=== PATIENT | female | born 1945 | race Caucasian/White ===

== ENCOUNTER 2016-05-15 10:07 | Outpatient (CLI) | payer MEDICARE, MEDICAID | END 2016-05-15 10:08 | disposition home or self-care (01) | DX: D64.9 Anemia, unspecified (principal) ==

== ENCOUNTER 2016-05-25 08:00 | Outpatient (CLI) | payer MEDICARE, MEDICAID | END 2016-05-25 08:01 | disposition home or self-care (01) | DX: N39.0 Urinary tract infection, site not specified (principal) ==

== ENCOUNTER 2016-05-31 08:00 | Outpatient (CLI) | payer MEDICARE, MEDICAID | END 2016-05-31 08:01 | disposition home or self-care (01) | DX: N39.0 Urinary tract infection, site not specified (principal); R41.82 Altered mental status, unspecified ==

== ENCOUNTER 2016-09-29 08:00 | Outpatient (CLI) | payer MEDICARE, MEDICAID ==
[2016-09-29 14:46] LABS: CALCIUM 9.3 mg/dL (8.5-10.3); CREATININE 1.3 mg/dL (0.4-1.0)
== END 2016-09-29 08:01 | disposition home or self-care (01) ==
LOC: LAB.R 08:00
DX: I10 Essential (primary) hypertension (principal); I25.9 Chronic ischemic heart disease, unspecified
CPT/HCPCS: 80048

== ENCOUNTER 2016-11-22 08:00 | Outpatient (CLI) | payer MEDICARE, MEDICAID ==
[2016-11-22 14:42] LABS: HEMOGLOBIN A1C 0.6 g/dL
== END 2016-11-22 08:01 | disposition home or self-care (01) ==
LOC: LAB.R 08:00
PROVIDERS: ATTEND Internal Medicine
DX: E11.9 Type 2 diabetes mellitus without complications (principal)
CPT/HCPCS: 83036

== ENCOUNTER 2017-02-13 08:00 | Outpatient (CLI) | payer MEDICARE, MEDICAID ==
[2017-02-13 21:30] LABS: WBC,URINE >25 /HPF (0-5)
[2017-02-13 22:13] LABS: UR CULTURE IF IND INDICATED
--- NOTE | 2017-02-14 06:00 | HISTORY & PHYSICAL EXAMINATION ---
DATE OF ADMISSION: 02/13/2017 She was admitted on 02/14/2017 at 3 a.m. CODE STATUS: FULL CODE. PRIMARY CARE PROVIDER: Dr. Joseluis Luong EXAM LIMITATIONS: The patient was unresponsive. SOURCE OF INFORMATION: Medical records. CHIEF COMPLAINT: Confusion and unresponsiveness. ADVANCED DIRECTIVES: Does the patient have advanced directive, Yes. HISTORY OF PRESENT ILLNESS: The patient, a 71-year-old white female, was very lethargic and unresponsive in the emergency room. She came from [facility] with a temperature of 101 degrees Fahrenheit, unresponsive and with a purulent discharge from the suprapubic catheter. DRUG ALLERGIES: 1. CEFTRIAXONE. 2. ERYTHROMYCIN. 3. LISINOPRIL. 4. PENICILLIN. 5. SULFA DRUGS. 6. QUINIDINE. MEDICATIONS: 1. Amitriptyline 150 mg 1 tab p.o. every day. 2. Aspirin 81 mg 1 tab p.o. every day. 3. Celexa 40 mg 1 tab p.o. every day. 4. Dextran 70/hypromellose 30 mL drop each eye twice a day. 5. Diltiazem 240 mg 1 tab p.o. twice a day. 6. Colace 250 mg 1 tab p.o. twice a day p.r.n. 7. Estradiol 1 mg p.o. every day. 8. Gabapentin 800 mg 1 tab p.o. 4 times a day. 9. Guaifenesin 600 mg p.o. twice a day. 10. Hydromorphone AP 5/325 mg 2 tabs p.o. q.6h. 11. Lantus 15 units subcutaneously in a.m. 12. Loperamide 2 mg 1 tab p.o. every day. 13. Mirtazapine 15 mg p.o. every day. 14. Multivitamin 1 tab p.o. every day. 15. Omeprazole 20 mg 1 tab p.o. every day. 16. Perphenazine 16 mg 1 tab p.o. every day. 17. Potassium chloride 10 mEq 1 tab p.o. twice a day. 18. Simvastatin 40 mEq 1 tab p.o. every day. PAST MEDICAL HISTORY: Recurrent urinary tract infection, chronic indwelling suprapubic catheter, type 2 diabetes mellitus, hypertension, insomnia, chronic back pain, hyperlipidemia, major depression, GERD and generalized anxiety. PAST SURGICAL HISTORY: Left [id number]-yhd-[id number] amputation SOCIAL HISTORY: She lives at [facility]. She never smoked. She does not drink alcohol and she uses no recreational drugs. REVIEW OF SYSTEMS: Unable to obtain because the patient was unresponsive. PHYSICAL EXAMINATION: VITAL SIGNS: Temperature is 36.8, pulse is 68, respiratory rate is 18, blood pressure is 80/48, O2 saturation is 89%. GENERAL: Unresponsive. HEENT: Head atraumatic, normocephalic. Eyes PERRLA, EOMI. NECK: Supple. No JVD, no bruits, no thyroid enlargement. No adenopathy. HEART: RRR. LUNGS: Clear to auscultation. ABDOMEN: Positive bowel sounds, soft, nontender. No rebound, no guarding. EXTREMITIES: Warm: No edema, +2 pedal pulses in the right leg. Left leg above- the-knee amputation. NEUROLOGICAL: Unresponsive and follows no commands. LABORATORY DATA: Sodium is 129, potassium is 4.4, chloride 92, bicarbonate 22, BUN 73, creatinine 3.7, glucose 141. Glomerular filtration rate 12. Anion gap of 15. White blood cells are 19.9, hemoglobin is 11.5, hematocrit 35.1, and platelets 191,000. On UA, urine protein is greater than 300, occult blood is large, nitrite is positive, leukocyte esterase is positive. RBCs are 6-10 and white blood cells are greater than 25. EKG is a normal sinus rhythm. DIAGNOSES: 1. Septic shock to be treated with IV Cipro, IV vancomycin, IV Levophed and IV 0.9 normal saline. Another lactate is pending. Acute Respiratory Distress will be managed by respiratory therapy to keep O2 saturations greater than 92%. 2. Pyelonephritis- IV Cipro and IV Vancomycin. 3. Depression- Elavil, Celexa and Remeron. 4. Hypertension will be treated with diltiazem, but will be held until the patient is off levaphed, alert, and SBP is >130. 5. Peripheral neuropathy will be treated with gabapentin. 6. She will have sequential compression devices and will be on subcutaneous heparin for deep vein thrombosis prophylaxis. She will receive IV Protonix for the prevention of stress ulcer. 7. Her diabetes will be treated with IV Glargine and IV sliding scale insulin. 8. Hyponatremia- IV .9 NS 9. Acute Renal Injury- IV.9 NS 10. CRD- stage 3 11. Anticipated length of stay is 5 days. 12. Admitted to ICU on telemetry. 13. Oral medications will be held until the patient is alert and responsive. 14. NPO 15. IV Zofran prn for nausea/ vomiting. JOB #: [id number] EXT JOB #:[id number] MTDIsaiah
== END 2017-02-13 08:01 | disposition home or self-care (01) ==
LOC: LAB.R 08:00
DX: N39.0 Urinary tract infection, site not specified (principal)
CPT/HCPCS: 81001; 87077; 87086

== ENCOUNTER 2017-02-14 00:45 | Outpatient (CLI) | payer MEDICARE, MEDICAID | END 2017-02-14 00:46 | disposition critical access hospital (66) | LOC: EMS 00:45 | PROVIDERS: ATTEND Surgery | DX: R41.82 Altered mental status, unspecified (principal); R50.9 Fever, unspecified | CPT/HCPCS: A0425; A0427 ==

== ENCOUNTER 2017-02-14 00:50 | Inpatient (IN) | payer MEDICARE, MEDICAID ==
[2017-02-14] MEDS ORDERED: SODIUM CHLORIDE 0.9% 1,000 ML IV ONE (01:02)
--- NOTE | 2017-02-14 01:06 | ED Physician Documentation ---
History of Present Illness - Stated complaint Stated Complaint: GLF/FEVER/ - Chief complaint Chief Complaint: Fever - History obtained from History obtained from: EMS, Caregiver (transfer notes from [facility] staff) - History of Present Illness Timing: Today - Additonal information Additional information: HPI is from medic report and notes written on transfer forms by [facility] staff; patient unable to contribute to HPI due to AMS. [facility] staff report increasing lethargy for past 24 hours. UO (into suprapubic catheter) has become thick and discolored during the day and she had fever over 101. She was started on Macrobid, has only had one dose thus far. 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: Hysterectomy - Present Medications Home Medications: Ambulatory Orders Medication Instructions Recorded Confirmed Amitriptyline [Elavil] 150 mg PO DAILY 09/29/13 05/20/15 Aspirin Chewable [[place] 81 mg PO DAILY 09/29/13 05/20/15 Aspirin] Citalopram [CeleXA] 40 mg PO QPM 09/29/13 05/20/15 Docusate Sodium 250 mg PO BID 09/29/13 05/20/15 Gabapentin [Neurontin] 800 mg PO QID 09/29/13 05/20/15 Hydrocodone/Acetaminophen 2 tab PO Q6HR PRN 09/29/13 05/20/15 [Hydrocodone-APAP 5-325] Insulin Glargine [Lantus] 15 units SUBQ QPM 09/29/13 05/20/15 Omeprazole [PriLOSEC] 20 mg PO DAILY 09/29/13 05/20/15 Simvastatin [Zocor] 40 mg PO DAILY 09/29/13 05/20/15 diltiaZEM CD [Cardizem Cd] 240 mg PO BID 09/29/13 05/20/15 Loperamide [Imodium] 2 mg PO DAILY 06/06/14 05/20/15 Multivitamin [Multivitamins] 1 each PO DAILY 06/06/14 05/20/15 Potassium Chloride 10 meq PO BID 06/06/14 05/20/15 Dextran 70/Hypromellose 1 drop EACHEYE BID 05/20/15 05/20/15 [Artificial Tears Eye Drops] Estradiol 1 mg PO DAILY 05/20/15 05/20/15 Lorazepam 0.5 mg PO BID 05/20/15 05/20/15 Mirtazapine 15 mg PO DAILY 05/20/15 05/20/15 Perphenazine 16 mg PO BID 05/20/15 05/20/15 guaiFENesin [Mucinex] 600 mg PO BID 05/20/15 05/20/15 - Allergies Allergies/Adverse Reactions: Allergies Allergy/AdvReac Type Severity Reaction Status Date / Time erythromycin base Allergy Severe Anaphylaxis Verified 02/14/17 01:05 [Erythromycin Base] Penicillins Allergy Severe Anaphylaxis Verified 02/14/17 01:05 Sulfa (Sulfonamide Allergy Severe Redness/High Verified 02/14/17 01:05 Antibiotics) fever lisinopril Allergy Unknown Unknown Verified 02/14/17 01:05 ceftriaxone Allergy Rash Verified 02/14/17 01:05 quinidine Allergy Rash Verified 02/14/17 01:05 - Social History Does the pt smoke?: No Smoking Status: Never smoker Does the pt drink ETOH?: No Does the pt have substance abuse?: No - Immunizations Immunizations are current?: No Immunizations: TDAP >10years/unknown - POLST Patient has POLST: No PD ED PE NORMAL - Vitals Vital signs reviewed: Yes - General General: No acute distress, Well developed/nourished - HEENT HEENT: PERRL, Other (dry mucous membranes) - Neck Neck: Supple, no meningeal sign - Cardiac Cardiac: RRR, No murmur - Respiratory Respiratory: No respiratory distress, Clear bilaterally - Abdomen Abdomen: Soft, Non tender, Other (suprapubic catheter site: mild erythema, scant thick, green discharge on gauze) - Extremities Extremities: Other (left AKA) PD ED PE EXPANDED - General General: Lethargic (briefly arousable to tactile stimulation but does not answer questions nor follow commands) - Derm Derm: Pale Results - Vitals Vitals: Vital Signs - 24 hr 1002/14/17 02/14/17 00:52 01:11 01:35 Temperature 36.8 C Heart Rate 78 Respiratory 16 Rate Blood Pressure 70/37 L 80/48 L O2 Saturation 98 89 L 02/14/17 02/14/17 02/14/17 01:51 02:27 03:19 Temperature Heart Rate 68 68 65 Respiratory 18 16 Rate Blood Pressure 82/47 L 81/49 L 79/48 L O2 Saturation 96 97 96 Oxygen O2 Source Nasal cannula Oxygen Flow Rate 2 - Labs Labs: Laboratory Tests 02/14/17 02/14/17 02/14/17 01:14 01:18 01:43 WBC 19.9 H RBC 4.23 Hgb 11.5 L Hct 35.1 L MCV 82.8 MCH 27.2 MCHC 32.8 RDW 15.9 H Plt Count 191 MPV 8.2 Neut # Not Reportable Lymph # Not Reportable [place] # Not Reportable Eos # Not Reportable Baso # Not Reportable Absolute Nucleated RBC Not Reportable Total Counted 100 Band Neuts % (Manual) 40 H Reactive Lymphs % (Man) 2 Nucleated RBC % Not Reportable Neutrophils # (Manual) 18.3 H Lymphocytes # (Manual) 0.8 L Monocytes # (Manual) 0.8 Nucleated RBCs 1 Differential Comment MANUAL DIFFERENTIAL Platelet Estimate NORMAL (130-450,000) Platelet Morphology NORMAL APPEARANCE RBC Morph Micro Appear NORMAL APPEARANCE Sodium Potassium Chloride Carbon Dioxide Anion Gap BUN Creatinine Estimated GFR (MDRD) Glucose Glycated Hemoglobin 6.4 H Estim Average Glucose 137 H Lactic Acid Calcium Urine Color DARK YELLOW Urine Clarity TURBID Urine pH 6.5 Ur Specific [place] 1.020 Urine Protein >=300 H Urine Glucose (UA) NEGATIVE Urine Ketones TRACE Urine Occult Blood LARGE H Urine Nitrite POSITIVE H Urine Bilirubin NEGATIVE Urine Urobilinogen 0.2 (NORMAL) Ur Leukocyte Esterase LARGE H Urine RBC 6-10 H Urine WBC >25 H Ur Squamous Epith Cells NONE SEEN Urine Bacteria None Seen Ur Microscopic Review INDICATED Urine Culture Comments INDICATED 02/14/17 02/14/17 01:43 01:43 WBC RBC Hgb Hct MCV MCH MCHC RDW Plt Count MPV Neut # Lymph # [place] # Eos # Baso # Absolute Nucleated RBC Total Counted Band Neuts % (Manual) Reactive Lymphs % (Man) Nucleated RBC % Neutrophils # (Manual) Lymphocytes # (Manual) Monocytes # (Manual) Nucleated RBCs Differential Comment Platelet Estimate Platelet Morphology RBC Morph Micro Appear Sodium 129 L Potassium 4.4 Chloride 92 L Carbon Dioxide 22 Anion Gap 15.0 H BUN 73 H Creatinine 3.7 H Estimated GFR (MDRD) 12 L Glucose 141 H Glycated Hemoglobin Estim Average Glucose Lactic Acid 2.1 Calcium 8.2 L Urine Color Urine Clarity Urine pH Ur Specific [place] Urine Protein Urine Glucose (UA) Urine Ketones Urine Occult Blood Urine Nitrite Urine Bilirubin Urine Urobilinogen Ur Leukocyte Esterase Urine RBC Urine WBC Ur Squamous Epith Cells Urine Bacteria Ur Microscopic Review Urine Culture Comments - Rads (name of study) chest xray Radiology: Prelim report reviewed, See rad report PD MEDICAL DECISION MAKING - ED course Complexity details: reviewed old records (similar presentation/admission May 2015), reviewed results, re-evaluated patient, considered differential ED course: Patient had hypotension for most of ED stay despite 1.5 liters of IV fluid, and thus hospitalist asked that I insert a central line. I attempted right IJ access but was unsuccessful. I consulted anesthesia delivery and installation subcontractor (nurse voucher clerk Aakash), who came to ED and was able to place right IJ prior to patient's transfer to the ICU. Departure - Departure Disposition: [address] [facility] DC/Xfer Clinical Impression: Sepsis Condition: Serious Discharge Date/Time: 02/14/17 06:55
[2017-02-14] MEDS ORDERED: CIPROFLOXACIN 400 MG/200 ML 200 ML IV ONE ×2 (01:48→02:00)
[2017-02-14] MEDS ORDERED: VANCOMYCIN INJ 1 GM in SODIUM CHLORIDE 0.9% 250 ML IV STA (01:48)
[2017-02-14 01:53] LABS: PH,URINE 6.5 PH (5.0-7.5)
--- NOTE | 2017-02-14 01:53 | XRAY Report ---
EXAM: CHEST RADIOGRAPHY EXAM DATE: 02/14/2017 01:41 AM. CLINICAL HISTORY: Hypoxia, AMS, hypotension. COMPARISON: 05/20/2015. TECHNIQUE: 1 view. FINDINGS: Lungs/Pleura: Low volumes. No focal opacities evident. No gross pneumothorax or large effusion. Mediastinum: Mild cardiomegaly. Rotated mediastinum. Other: None. IMPRESSION: Hypoventilatory single view chest with cardiomegaly but without definite acute process. [facility] Referring Provider Line: [phone] SITE ID: [id number]
--- NOTE | 2017-02-14 01:53 | XRAY Preliminary Report ---
Exam: XR Chest 1 View IMPRESSION: Hypoventilatory single view chest with cardiomegaly but without definite acute process. [facility] SITE ID: [id number]
[2017-02-14 01:57] LABS: BASOPHILS % (AUTO) 0.2 %; EOSINOPHILS % (AUTO) 0.4 %; HCT - HEMATOCRIT 35.1 % (37.0-47.0); HGB - HEMOGLOBIN 11.5 g/dL (12.0-16.0); LYMPHOCYTES % (AUTO) 4.7 %; MEAN CORPUSCULAR HEMOGLOBIN 27.2 pg (27.0-31.0); MEAN CORPUSCULAR HGB CONC 32.8 g/dL (32.0-36.0); MEAN CORPUSCULAR VOLUME 82.8 fL (81.0-99.0); MEAN PLATELET VOLUME 8.2 fL (7.9-10.8); MONOCYTES % (AUTO) 3.8 %; NEUTROPHILS % (AUTO) 90.9 %; RED BLOOD COUNT 4.23 10^6/uL (4.20-5.40); RED CELL DISTRIBUTION WIDTH 15.9 % (12.0-15.0); UNCORRECTED WHITE BLOOD COUNT 19.9 x10^3/uL; WHITE BLOOD COUNT 19.9 x10^3/uL (4.8-10.8)
[2017-02-14 02:03] LABS: CALCIUM 8.2 mg/dL (8.5-10.3); CREATININE 3.7 mg/dL (0.4-1.0); POTASSIUM 4.4 mmol/L (3.5-5.0)
[2017-02-14] MEDS ORDERED: SODIUM CHLORIDE 0.9% 1,000 ML IV STA (02:16)
[2017-02-14] MEDS ORDERED: VANCOMYCIN 1 GM VIAL ONE (02:18)
[2017-02-14 02:20] LABS: BILIRUBIN,URINE NEGATIVE (NEGATIVE); UA w/ MICROSCOPIC CHARGE YES; UR CULTURE IF IND INDICATED; WBC,URINE >25 /HPF (0-5)
[2017-02-14 02:39] LABS: BAND NEUTROPHILS % (MANUAL) 40 %; LYMPHOCYTES % (MANUAL) 2 %; NEUTROPHILS % (MANUAL) 52 %; NP AUTO DIFFERENTIAL? YES; NP MAN DIFFERENTIAL? NO; PLATELET ESTIMATE, MANUAL NORMAL (130-450,000) (NORMAL); PLATELET MORPHOLOGY NORMAL APPEARANCE (NORMAL); TOTAL CELLS COUNTED 100
[2017-02-14] MEDS ORDERED: ONDANSETRON 4 MG/2 ML VIAL IVP PRN (03:27)
--- NOTE | 2017-02-14 06:00 | HISTORY & PHYSICAL EXAMINATION ---
REVISED: REPORT ORIGINALLY SIGNED ON 02/14/2017 @ 0633. REPORT MOVED TO CORRECT ACCT ON 02/23/2017 jll DATE OF ADMISSION: 02/13/2017 She was admitted on 02/14/2017 at 3 a.m. CODE STATUS: FULL CODE. PRIMARY CARE PROVIDER: Dr. Joseluis Luong EXAM LIMITATIONS: The patient was unresponsive. SOURCE OF INFORMATION: Medical records. CHIEF COMPLAINT: Confusion and unresponsiveness. ADVANCED DIRECTIVES: Does the patient have advanced directive, Yes. HISTORY OF PRESENT ILLNESS: The patient, a 71-year-old white female, was very lethargic and unresponsive in the emergency room. She came from [facility] with a temperature of 101 degrees Fahrenheit, unresponsive, and with a purulent discharge from the suprapubic catheter. DRUG ALLERGIES 1. CEFTRIAXONE. 2. ERYTHROMYCIN. 3. LISINOPRIL. 4. PENICILLIN. 5. SULFA DRUGS. 6. QUINIDINE. MEDICATIONS 1. Amitriptyline 150 mg 1 tab p.o. every day. 2. Aspirin 81 mg 1 tab p.o. every day. 3. Celexa 40 mg 1 tab p.o. every day. 4. Dextran 70/hypromellose 30 mL drop each eye twice a day. 5. Diltiazem 240 mg 1 tab p.o. twice a day. 6. Colace 250 mg 1 tab p.o. twice a day p.r.n. 7. Estradiol 1 mg p.o. every day. 8. Gabapentin 800 mg 1 tab p.o. 4 times a day. 9. Guaifenesin 600 mg p.o. twice a day. 10. Hydromorphone AP 5/325 mg 2 tabs p.o. q.6h. 11. Lantus 15 units subcutaneously in a.m. 12. Loperamide 2 mg 1 tab p.o. every day. 13. Mirtazapine 15 mg p.o. every day. 14. Multivitamin 1 tab p.o. every day. 15. Omeprazole 20 mg 1 tab p.o. every day. 16. Perphenazine 16 mg 1 tab p.o. every day. 17. Potassium chloride 10 mEq 1 tab p.o. twice a day. 18. Simvastatin 40 mEq 1 tab p.o. every day. PAST MEDICAL HISTORY: Recurrent urinary tract infection, chronic indwelling suprapubic catheter, type 2 diabetes mellitus, hypertension, insomnia, chronic back pain, hyperlipidemia, major depression, GERD and generalized anxiety. PAST SURGICAL HISTORY: Left [id number]-[id number] amputation SOCIAL HISTORY: She lives at [facility] senior [facility]. She never smoked. She does not drink alcohol and she uses no recreational drugs. REVIEW OF SYSTEMS: Unable to obtain because the patient was unresponsive. PHYSICAL EXAMINATION VITAL SIGNS: Temperature is 36.8, pulse is 68, respiratory rate is 18, blood pressure is 80/48, O2 saturation is 89%. GENERAL: Unresponsive. HEENT: Head atraumatic, normocephalic. Eyes PERRLA, EOMI. NECK: Supple. No JVD, no bruits, no thyroid enlargement. No adenopathy. HEART: RRR. LUNGS: Clear to auscultation. ABDOMEN: Positive bowel sounds, soft, nontender. No rebound, no guarding. EXTREMITIES: Warm: No edema, +2 pedal pulses in the right leg. Left leg above- the-knee amputation. NEUROLOGICAL: Unresponsive and follows no commands. LABORATORY DATA: Sodium is 129, potassium is 4.4, chloride 92, bicarbonate 22, BUN 73, creatinine 3.7, glucose 141. Glomerular filtration rate 12. Anion gap of 15. White blood cells are 19.9, hemoglobin is 11.5, hematocrit 35.1, and platelets 191,000. On UA, urine protein is greater than 300, occult blood is large, nitrite is positive, leukocyte esterase is positive. RBCs are 6-10 and white blood cells are greater than 25. EKG is a normal sinus rhythm. DIAGNOSES 1. Septic shock to be treated with IV Cipro, IV vancomycin, IV Levophed and IV 0.9 normal saline. Another lactate is pending. Acute Respiratory Distress will be managed by Respiratory Therapy to keep O2 saturations greater than 92%. 2. Pyelonephritis- IV Cipro and IV Vancomycin. 3. Depression- Elavil, Celexa, and Remeron. 4. Hypertension will be treated with diltiazem, but will be held until the patient is off Levophed, alert, and SBP is >130. 5. Peripheral neuropathy will be treated with gabapentin. 6. She will have sequential compression devices and will be on subcutaneous heparin for deep vein thrombosis prophylaxis. She will receive IV Protonix for the prevention of stress ulcer. 7. Her diabetes will be treated with IV Glargine and IV sliding scale insulin. 8. Hyponatremia- IV 0.9 NS 9. Acute Renal Injury- IV 0.9 NS 10. CRD- stage 3 11. Anticipated length of stay is 5 days. 12. Admitted to ICU on telemetry. 13. Oral medications will be held until the patient is alert and responsive. 14. NPO 15. IV Zofran prn for nausea/ vomiting. JOB #: [id number] EXT JOB #:[id number] [facility]AMPUS[facility]
[2017-02-14 06:43] LABS: MEAN PLATELET VOLUME 8.2 fL (7.9-10.8); UNCORRECTED WHITE BLOOD COUNT 17.6 x10^3/uL; WHITE BLOOD COUNT 17.6 x10^3/uL (4.8-10.8)
[2017-02-14 06:47] LABS: BASOPHILS % (AUTO) 0.1 %; EOSINOPHILS % (AUTO) 0.5 %; HCT - HEMATOCRIT 33.2 % (37.0-47.0); HGB - HEMOGLOBIN 10.8 g/dL (12.0-16.0); LYMPHOCYTES % (AUTO) 3.3 %; MEAN CORPUSCULAR HEMOGLOBIN 27.3 pg (27.0-31.0); MEAN CORPUSCULAR HGB CONC 32.6 g/dL (32.0-36.0); MEAN CORPUSCULAR VOLUME 83.8 fL (81.0-99.0); MONOCYTES % (AUTO) 3.2 %; NEUTROPHILS % (AUTO) 92.9 %; RED BLOOD COUNT 3.96 10^6/uL (4.20-5.40)
[2017-02-14] MEDS: SODIUM CHLORIDE 0.9% 1,000 ML IV SCH ×3 (06:50→14:36)
[2017-02-14 06:54] LABS: ALBUMIN/GLOBULIN RATIO 0.8 (1.0-2.2); BILIRUBIN,TOTAL 0.7 mg/dL (0.2-1.0); CALCIUM 7.6 mg/dL (8.5-10.3); CREATININE 3.6 mg/dL (0.4-1.0); POTASSIUM 4.4 mmol/L (3.5-5.0); TOTAL PROTEIN 5.4 g/dL (6.7-8.2)
--- NOTE | 2017-02-14 07:02 | XRAY Preliminary Report ---
Exam: XR Chest for Line Placement IMPRESSION: 1. Right IJ central venous catheter tip projects over the cavoatrial junction. 2. Hypoventilatory appearance of the chest. [facility] SITE ID: [id number]
--- NOTE | 2017-02-14 07:05 | XRAY Report ---
EXAM: CHEST RADIOGRAPHY EXAM DATE: 02/14/2017 06:30 AM. CLINICAL HISTORY: Central line placement COMPARISON: Comparison made with exam acquired earlier today at 0148 hours. TECHNIQUE: 1 view. FINDINGS: Lungs/Pleura: Small lung volumes. Low lung volumes with resultant accentuation of the pulmonary inter stitial and vascular markings. No consolidation, effusion, or definite pneumothorax. Mediastinum: Mild enlargement of the cardiac silhouette Other: There is a right IJ central venous catheter with tip projecting over the cavoatrial junction. Moderate to severe degenerative change about the shoulder bilaterally. IMPRESSION: 1. Right IJ central venous catheter tip projects over the cavoatrial junction. 2. Hypoventilatory appearance of the chest. [facility] Referring Provider Line: [phone] SITE ID: [id number]
[2017-02-14 07:12] LABS: HEMOGLOBIN A1C 0.55 g/dL
[2017-02-14 07:15] LABS: BAND NEUTROPHILS % (MANUAL) 45 %; EOSINOPHILS % (MANUAL) 2 %; LYMPHOCYTES % (MANUAL) 9 %; NEUTROPHILS % (MANUAL) 42 %; NP AUTO DIFFERENTIAL? YES; NP MAN DIFFERENTIAL? NO; PLATELET ESTIMATE, MANUAL NORMAL (130-450,000) (NORMAL); PLATELET MORPHOLOGY NORMAL APPEARANCE (NORMAL); TOTAL CELLS COUNTED 100
[2017-02-14] MEDS ORDERED: VANCOMYCIN INJ 1 GM in SODIUM CHLORIDE 0.9% 250 ML IV ONE (08:00)
[2017-02-14] MEDS ORDERED: MULTIVITAMIN TABLET PO SCH (08:00)
[2017-02-14] MEDS: PANTOPRAZOLE 40 MG VIAL IVP SCH (08:09)
[2017-02-14] MEDS: SODIUM CHLORIDE FLUSH 0.9% 10 ML SYRINGE IVP PRN ×2 (08:10→22:14)
[2017-02-14] MEDS ORDERED: GABAPENTIN 400 MG CAPSULE PO SCH (09:00)
[2017-02-14] MEDS ORDERED: VANCOMYCIN INJ 1 GM in SODIUM CHLORIDE 0.9% 250 ML IV SCH (09:00)
[2017-02-14] MEDS ORDERED: DOCUSATE SODIUM 250 MG CAPSULE PO SCH (09:00)
[2017-02-14] MEDS ORDERED: guaiFENesin 600 MG TABLET PO SCH (09:00)
[2017-02-14] MEDS ORDERED: PERPHENAZINE 4 MG TABLET PO SCH (09:00)
[2017-02-14] MEDS ORDERED: ASPIRIN CHEW 81 MG TABLET PO SCH (09:00)
[2017-02-14] MEDS ORDERED: POTASSIUM CHLORIDE 10 MEQ CAPSULE PO SCH (09:00)
[2017-02-14] MEDS ORDERED: diltiaZEM CD 240 MG CAPSULE PO SCH (09:00)
[2017-02-14] MEDS: HEPARIN 5,000 UNIT/ML VIAL SUBQ SCH ×2 (09:28→21:24)
[2017-02-14] MEDS: CARBOXYMETHYLCELLULOSE OPHTH DROPS EACHEYE SCH ×2 (09:35→21:25)
[2017-02-14] MEDS ORDERED: ALBUTEROL NEB 2.5 MG/3 ML INH PRN (10:07)
[2017-02-14] MEDS ORDERED: CIPROFLOXACIN 400 MG/200 ML 200 ML IV SCH (14:00)
[2017-02-14] MEDS: SODIUM CHLORIDE FLUSH 0.9% 10 ML SYRINGE IVP SCH ×2 (14:31→21:25)
[2017-02-14] MEDS: GABAPENTIN 400 MG CAPSULE PO SCH ×2 (16:54→21:34)
[2017-02-14] MEDS: HYDROmorphone 1 MG/ML AMP IVP PRN ×2 (17:25→22:20)
[2017-02-14] MEDS: LORazepam 2 MG/ML SYRINGE IVP PRN ×2 (17:39→21:34)
[2017-02-14] MEDS ORDERED: ATORVASTATIN 10 MG TABLET PO SCH (21:00)
[2017-02-14] MEDS ORDERED: AMITRIPTYLINE 25 MG TABLET PO SCH (21:00)
[2017-02-14] MEDS ORDERED: CITALOPRAM 10 MG TABLET PO SCH ×2 (21:00)
[2017-02-14] MEDS ORDERED: INSULIN GLARGINE 300 UNIT/3 ML PEN SUBQ SCH (21:00)
[2017-02-14] MEDS: QUEtiapine 100 MG TABLET PO SCH ×2 (21:24→21:34)
[2017-02-14] MEDS: MIRTAZAPINE 15 MG TABLET PO SCH ×2 (21:25→21:34)
[2017-02-14 22:36] LABS: BASOPHILS % (AUTO) 0.2 %; HCT - HEMATOCRIT 34.7 % (37.0-47.0); HGB - HEMOGLOBIN 11.3 g/dL (12.0-16.0); MEAN CORPUSCULAR HEMOGLOBIN 27.3 pg (27.0-31.0); MEAN CORPUSCULAR HGB CONC 32.4 g/dL (32.0-36.0); MEAN CORPUSCULAR VOLUME 84.2 fL (81.0-99.0); MONOCYTES % (AUTO) 2.6 %; NEUTROPHILS % (AUTO) 92.2 %; RED BLOOD COUNT 4.12 10^6/uL (4.20-5.40); RED CELL DISTRIBUTION WIDTH 16.3 % (12.0-15.0); UNCORRECTED WHITE BLOOD COUNT 12.8 x10^3/uL; WHITE BLOOD COUNT 12.8 x10^3/uL (4.8-10.8)
[2017-02-14 23:10] LABS: BAND NEUTROPHILS % (MANUAL) 24 %; LYMPHOCYTES % (MANUAL) 6 %; NEUTROPHILS % (MANUAL) 67 %; TOTAL CELLS COUNTED 100
[2017-02-14 23:11] LABS: NP AUTO DIFFERENTIAL? YES; NP MAN DIFFERENTIAL? NO; PLATELET ESTIMATE, MANUAL NORMAL (130-450,000) (NORMAL); PLATELET MORPHOLOGY NORMAL APPEARANCE (NORMAL)
[2017-02-15] MEDS: SODIUM CHLORIDE 0.9% 1,000 ML IV SCH ×2 (00:12→11:10)
[2017-02-15] MEDS: LORazepam 2 MG/ML SYRINGE IVP PRN ×2 (00:12→16:03)
[2017-02-15] MEDS ORDERED: diphenhydrAMINE INJ 50 MG/ML VIAL IVP ONE (01:05)
[2017-02-15] MEDS: CIPROFLOXACIN 400 MG/200 ML 200 ML IV SCH (01:31)
[2017-02-15 04:32] LABS: BASOPHILS % (AUTO) 0.1 %; EOSINOPHILS # (AUTO) 0.2 10^3/uL (0.0-0.7); EOSINOPHILS % (AUTO) 2.2 %; HGB - HEMOGLOBIN 10.8 g/dL (12.0-16.0); LYMPHOCYTES # (AUTO) 0.3 10^3/uL (1.5-3.5); LYMPHOCYTES % (AUTO) 2.7 %; MEAN CORPUSCULAR HEMOGLOBIN 27.3 pg (27.0-31.0); MEAN CORPUSCULAR HGB CONC 32.6 g/dL (32.0-36.0); MEAN CORPUSCULAR VOLUME 83.7 fL (81.0-99.0); MEAN PLATELET VOLUME 8.1 fL (7.9-10.8); MONOCYTES # (AUTO) 0.4 10^3/uL (0.0-1.0); MONOCYTES % (AUTO) 3.4 %; NEUTROPHILS # (AUTO) 9.3 10^3/uL (1.5-6.6); NEUTROPHILS % (AUTO) 91.6 %; RED BLOOD COUNT 3.94 10^6/uL (4.20-5.40); RED CELL DISTRIBUTION WIDTH 16.2 % (12.0-15.0); UNCORRECTED WHITE BLOOD COUNT 10.2 x10^3/uL; WHITE BLOOD COUNT 10.2 x10^3/uL (4.8-10.8)
[2017-02-15 04:42] LABS: CALCIUM, IONIZED 1.07 mmol/L (1.15-1.33); VBG PH 7.303 (7.31-7.41)
[2017-02-15 04:43] LABS: ALBUMIN/GLOBULIN RATIO 0.7 (1.0-2.2); BILIRUBIN,TOTAL 0.4 mg/dL (0.2-1.0); CALCIUM 7.7 mg/dL (8.5-10.3); CREATININE 2.7 mg/dL (0.4-1.0); PHOSPHORUS 4.7 mg/dL (2.5-4.6); POTASSIUM 3.9 mmol/L (3.5-5.0); TOTAL PROTEIN 5.7 g/dL (6.7-8.2)
[2017-02-15] MEDS: SODIUM CHLORIDE FLUSH 0.9% 10 ML SYRINGE IVP SCH ×3 (06:01→21:25)
[2017-02-15] MEDS: PANTOPRAZOLE 40 MG VIAL IVP SCH (06:01)
[2017-02-15] MEDS: DULoxetine 30 MG CAPSULE PO SCH (09:03)
[2017-02-15] MEDS: GABAPENTIN 400 MG CAPSULE PO SCH ×2 (09:04→21:24)
[2017-02-15] MEDS: HEPARIN 5,000 UNIT/ML VIAL SUBQ SCH ×2 (09:05→21:25)
[2017-02-15 10:07] LABS: INR 1.1 (0.8-1.2); PT - PROTHROMBIN TIME 12.8 secs (9.9-12.6)
--- NOTE | 2017-02-15 12:18 | PROVIDER PROGRESS NOTE ---
Assessment/Plan - Problem List (1) Septic shock Assessment/Plan: BP improved an Pt off Levophed. No cultures back yet. Continue hydration with iv saline and continue iv antibiotics. (2) Pyelonephritis Assessment/Plan: Pt has a chronic indwelling urinary catheter and NH staff saw purullence around skin site. Cultures not back yet. Continue iv antibiotics. (3) Acute hyperactive delirium due to multiple etiologies Assessment/Plan: Intermittent confusion possibly due to hypotension, dementia or her schizophrenia history. Continue soft restraints until able to take her psych meds po to help with hyperactivity. (4) Acute on chronic renal failure Assessment/Plan: Improving BUN/ctreat with iv saline hydration. Cpntinue saline. Follow electrolytes, BUN and creat. (5) T2DM (type 2 diabetes mellitus) Assessment/Plan: Pt not on her usual Insulin dose. Will use SS Insulin low coverage. - Current Meds Current Meds: Current Medications Generic Name Dose Route Start Last Admin Trade Name Freq PRN Reason Stop Dose Admin Carboxymethylcellulose 1 drops 02/14/17 09:00 02/14/17 21:25 Refresh 1% Ophth Drops EACHEYE 1 applic BID JEAN Administration Duloxetine HCl 60 mg 02/15/17 09:00 02/15/17 09:03 Cymbalta PO Not Given DAILY JEAN Gabapentin 800 mg 02/14/17 16:35 02/15/17 09:04 Neurontin PO Not Given BID JEAN Heparin Sodium (Porcine) 5,000 unit 02/14/17 09:00 02/15/17 09:05 SUBQ 5,000 unit BID JEAN Administration Hydromorphone HCl 1 mg 02/14/17 16:35 02/14/17 22:20 Dilaudid IVP 1 mg Q2HR PRN Administration PAIN Sodium Chloride 1,000 mls @ 100 mls/hr 02/14/17 04:00 02/15/17 11:10 Normal Saline 0.9% IV 100 mls/hr .Q10H JEAN Administration Norepinephrine Bitartrate 8 mg 250 mls @ 15 mls/hr 02/14/17 03:44 02/15/17 03 :28 / Dextrose IV Not Given .[id number] JEAN Protocol 8 MCG/MIN Ciprofloxacin 200 mls @ 200 mls/hr 02/15/17 02:00 02/15/17 02:30 Cipro 400 Mg/200 Ml IV Infused Q24H JEAN Infusion Lorazepam 0.5 mg 02/14/17 17:28 02/15/17 00:12 Ativan Inj IVP 0.5 mg Q2HR PRN Administration Anxiety Mirtazapine 15 mg 02/14/17 21:00 02/14/17 21:34 Remeron PO Not Given QPM JEAN Pantoprazole Sodium 40 mg 02/14/17 07:00 02/15/17 06:01 Protonix IVP 40 mg QDAC JEAN Administration Quetiapine Fumarate 300 mg 02/14/17 21:00 02/14/17 21:34 Seroquel PO Not Given QPM JEAN Sodium Chloride 10 ml 02/14/17 06:00 02/15/17 06:01 Normal Saline Flush 0.9% IVP 10 ml Q8HR JEAN Administration Sodium Chloride 10 ml 02/14/17 03:27 02/14/17 22:14 Normal Saline Flush 0.9% IVP 20 ml PRN PRN Administration NEEDED PER PROVIDER ORDERS - Lab Result Fish Bone Diagrams: 02/15/17 04:15 02/15/17 04:15 - Additional Planning My Orders: My Active Orders 02/14/17 16:35 Gabapentin [Neurontin] 800 mg PO BID HYDROmorphone [Dilaudid] 1 mg IVP Q2HR PRN 02/14/17 17:28 LORazepam INJ [Ativan Inj] 0.5 mg IVP Q2HR PRN 02/14/17 21:00 Citalopram [CeleXA] 20 mg PO QPM QUEtiapine [SEROquel] 300 mg PO QPM 02/15/17 09:00 DULoxetine [Cymbalta] 60 mg PO DAILY Subjective - Subjective Patient Reports: Resting Comfortably Nursing Reports: Confused, Other (Last evening and overnight, Pt was confused and combative when awake and tried to pull out ivs, needed order for restraints. This am she is still confused but less combative., oriented x 0.) Objective Vital Signs: Vital Signs - 24 hr 02/14/17 02/14/17 02/14/17 13:00 14:00 15:00 Temperature Heart Rate [ 86 88 94 Apical] Respiratory 14 16 14 Rate Blood Pressure 111/58 L 117/56 L 102/59 L [Right Brachial artery] O2 Saturation 95 96 97 02/14/17 02/14/17 02/14/17 16:00 17:30 17:34 Temperature Heart Rate [ 100 99 104 H Apical] Respiratory 18 14 17 Rate Blood Pressure 152/110 H 126/107 H 126/107 H [Right Brachial artery] O2 Saturation 94 02/14/17 02/14/17 02/14/17 19:00 20:00 21:03 Temperature 37.2 C Heart Rate [ 97 97 95 Apical] Respiratory 12 16 14 Rate Blood Pressure 128/69 104/68 111/58 L [Right Brachial artery] O2 Saturation 94 93 95 02/14/17 02/14/17 02/15/17 22:00 23:00 00:00 Temperature 36.9 C Heart Rate [ 97 95 100 Apical] Respiratory 11 L 12 15 Rate Blood Pressure 147/78 H 109/72 106/64 [Right Brachial artery] O2 Saturation 95 96 95 02/15/17 02/15/17 02/15/17 01:00 02:00 03:00 Temperature Heart Rate [ 100 98 92 Apical] Respiratory 13 12 13 Rate Blood Pressure 104/72 105/59 L 107/65 [Right Brachial artery] O2 Saturation 93 96 96 02/15/17 02/15/17 02/15/17 04:00 05:00 06:00 Temperature 36.6 C Heart Rate [ 92 95 96 Apical] Respiratory 13 14 12 Rate Blood Pressure 113/76 134/79 H 125/75 [Right Brachial artery] O2 Saturation 97 97 93 02/15/17 02/15/17 02/15/17 07:00 08:00 09:00 Temperature Heart Rate [ 97 97 101 H Apical] Respiratory 14 14 13 Rate Blood Pressure 117/70 120/68 139/76 H [Right Brachial artery] O2 Saturation 93 95 96 02/15/17 02/15/17 02/15/17 10:00 11:00 12:00 Temperature 36.1 C L 36.9 C Heart Rate [ 104 H 106 H 104 H Apical] Respiratory 16 14 14 Rate Blood Pressure 131/68 H 125/64 138/83 H [Right Brachial artery] O2 Saturation 95 97 94 Oxygen O2 Source Room air I&O (Last 24 Hrs): Intake and Output Totals x24h 02/13/17 02/14/17 02/15/17 23:59 23:59 23:59 Intake Total 2731.043 2179.750 Output Total 3815 1825 Balance -1083.957 354.750 General: Other (Somnolent but arouses briefly) HEENT: Atraumatic, Mucous membr. moist/pink Neck: Supple Neuro: Disoriented Cardiovascular: Regular rate, No murmurs Respiratory: No respiratory distress Genitourinary: Other (Suprapubic catheter with possible urine leak) Extremities: No edema, Other (L BKA) - Results Results: Laboratory Results WBC 10.2 x10^3/uL (4.8-10.8) 02/15/17 04:15 RBC 3.94 10^6/uL (4.20-5.40) L 02/15/17 04:15 Hgb 10.8 g/dL (12.0-16.0) L 02/15/17 04:15 Hct 33.0 % (37.0-47.0) L 02/15/17 04:15 MCV 83.7 fL (81.0-99.0) 02/15/17 04:15 MCH 27.3 pg (27.0-31.0) 02/15/17 04:15 MCHC 32.6 g/dL (32.0-36.0) 02/15/17 04:15 RDW 16.2 % (12.0-15.0) H 02/15/17 04:15 Plt Count 153 10^3/uL (130-450) 02/15/17 04:15 MPV 8.1 fL (7.9-10.8) 02/15/17 04:15 Neut # 9.3 10^3/uL (1.5-6.6) H 02/15/17 04:15 Lymph # 0.3 10^3/uL (1.5-3.5) L 02/15/17 04:15 [place] # 0.4 10^3/uL (0.0-1.0) 02/15/17 04:15 Eos # 0.2 10^3/uL (0.0-0.7) 02/15/17 04:15 Baso # 0.0 10^3/uL (0.0-0.1) 02/15/17 04:15 Absolute Nucleated RBC 0.00 x10^3/uL 02/15/17 04:15 Total Counted 100 02/14/17 22:16 Band Neuts % (Manual) 24 % (0-10) H 02/14/17 22:16 Reactive Lymphs % (Man) 2 % 02/14/17 01:43 Nucleated RBC % 0.0 /100WBC 02/15/17 04:15 Neutrophils # (Manual) 11.6 10^3/uL (1.5-6.6) H 02/14/17 22:16 Lymphocytes # (Manual) 0.8 10^3/uL (1.5-3.5) L 02/14/17 22:16 Monocytes # (Manual) 0.4 10^3/uL (0.0-1.0) 02/14/17 22:16 Eosinophils # (Manual) 0.4 10^3/uL (0-0.7) 02/14/17 06:30 Nucleated RBCs 1 % 02/14/17 01:43 Differential Comment MANUAL DIFFERENTIAL 02/14/17 22:16 Platelet Estimate NORMAL (130-450,000) (NORMAL) 02/14/17 22:16 Platelet Morphology NORMAL APPEARANCE (NORMAL) 02/14/17 22:16 RBC Morph Micro Appear 1+ HYPOCHROMASIA (NORMAL) 02/14/17 22:16 PT 12.8 secs (9.9-12.6) H 02/15/17 09:40 INR 1.1 (0.8-1.2) 02/15/17 09:40 VBG pH 7.303 (7.31-7.41) L 02/15/17 04:15 Ionized Calcium 1.07 mmol/L (1.15-1.33) L 02/15/17 04:15 Sodium 137 mmol/L (135-145) 02/15/17 04:15 Potassium 3.9 mmol/L (3.5-5.0) 02/15/17 04:15 Chloride 103 mmol/L (101-111) 02/15/17 04:15 Carbon Dioxide 23 mmol/L (21-32) 02/15/17 04:15 Anion Gap 11.0 (6-13) 02/15/17 04:15 BUN 65 mg/dL (6-20) H 02/15/17 04:15 Creatinine 2.7 mg/dL (0.4-1.0) H 02/15/17 04:15 Estimated GFR (MDRD) 17 (>89) L 02/15/17 04:15 Glucose 114 mg/dL (70-100) H 02/15/17 04:15 Glycated Hemoglobin 6.4 % (4.6-6.2) H 02/14/17 01:14 Estim Average Glucose 137 (70-100) H 02/14/17 01:14 Lactic Acid 1.1 mmol/L (0.5-2.2) 02/14/17 22:16 Calcium 7.7 mg/dL (8.5-10.3) L 02/15/17 04:15 Phosphorus 4.7 mg/dL (2.5-4.6) H 02/15/17 04:15 Magnesium 2.0 mg/dL (1.7-2.8) 02/15/17 04:15 Total Bilirubin 0.4 mg/dL (0.2-1.0) 02/15/17 04:15 AST 25 IU/L (10-42) 02/15/17 04:15 ALT 20 IU/L (10-60) 02/15/17 04:15 Alkaline Phosphatase 62 IU/L (42-121) 02/15/17 04:15 Total Protein 5.7 g/dL (6.7-8.2) L 02/15/17 04:15 Albumin 2.3 g/dL (3.2-5.5) L 02/15/17 04:15 Globulin 3.4 g/dL (2.1-4.2) 02/15/17 04:15 Albumin/Globulin Ratio 0.7 (1.0-2.2) L 02/15/17 04:15 Urine Color DARK YELLOW 02/14/17 01:18 Urine Clarity TURBID (CLEAR) 02/14/17 01:18 Urine pH 6.5 PH (5.0-7.5) 02/14/17 01:18 Ur Specific [place] 1.020 (1.002-1.030) 02/14/17 01:18 Urine Protein >=300 mg/dL (NEGATIVE) H 02/14/17 01:18 Urine Glucose (UA) NEGATIVE mg/dL (NEGATIVE) 02/14/17 01:18 Urine Ketones TRACE mg/dL (NEGATIVE) 02/14/17 01:18 Urine Occult Blood LARGE (NEGATIVE) H 02/14/17 01:18 Urine Nitrite POSITIVE (NEGATIVE) H 02/14/17 01:18 Urine Bilirubin NEGATIVE (NEGATIVE) 02/14/17 01:18 Urine Urobilinogen 0.2 (NORMAL) E.U./dL (NORMAL) 02/14/17 01:18 Ur Leukocyte Esterase LARGE (NEGATIVE) H 02/14/17 01:18 Urine RBC 6-10 /HPF (0-5) H 02/14/17 01:18 Urine WBC >25 /HPF (0-5) H 02/14/17 01:18 Ur Squamous Epith Cells NONE SEEN (<= Few) 02/14/17 01:18 Urine Bacteria None Seen /HPF (None Seen) 02/14/17 01:18 Ur Microscopic Review INDICATED 02/14/17 01:18 Urine Culture Comments INDICATED 02/14/17 01:18 - Procedures Procedures: Procedures CONTINUOUS INVASIVE MECHANICAL VENTILATION <96 CONSEC HRS (09/29/13) INSERT ENDOTRACHEAL TUBE (09/29/13) INSERT GASTRIC TUBE NEC (09/29/13) INSERTION OF INFUSION DEV INTO SUP VENA CAVA, PERC APPROACH (05/20/15) REPLACE CYSTOSTOMY TUBE (06/12/14) RETROGRADE PYELOGRAM (06/12/14) TU BLADDER CLEARANCE (06/12/14) VENOUS CATHETERIZATION NEC (09/29/13)
[2017-02-15] MEDS ORDERED: DEXTROSE 50% ABBOJECT 25 GM/50 ML SYRINGE ONE (12:20)
[2017-02-15] MEDS: CARBOXYMETHYLCELLULOSE OPHTH DROPS EACHEYE SCH ×2 (12:56→21:24)
[2017-02-15] MEDS ORDERED: DEXTROSE 5% 1,000 ML IV ONE (12:57)
[2017-02-15] MEDS: METOPROLOL 5 MG/5 ML VIAL IVP SCH (16:45)
[2017-02-15] MEDS: HYDROmorphone 1 MG/ML AMP IVP PRN (19:46)
[2017-02-15] MEDS: DEXTROSE 5% 1,000 ML IV SCH (21:24)
[2017-02-15] MEDS: MIRTAZAPINE 15 MG TABLET PO SCH (21:25)
[2017-02-15] MEDS: SODIUM CHLORIDE FLUSH 0.9% 10 ML SYRINGE IVP PRN (21:25)
[2017-02-15] MEDS: QUEtiapine 100 MG TABLET PO SCH (21:25)
[2017-02-16] MEDS: METOPROLOL 5 MG/5 ML VIAL IVP SCH ×3 (01:26→18:00)
[2017-02-16] MEDS: CIPROFLOXACIN 400 MG/200 ML 200 ML IV SCH (01:26)
[2017-02-16] MEDS: HYDROmorphone 1 MG/ML AMP IVP PRN (01:26)
[2017-02-16 05:42] LABS: CALCIUM, IONIZED 1.17 mmol/L (1.15-1.33); VBG PH 7.353 (7.31-7.41)
[2017-02-16 05:48] LABS: ALBUMIN/GLOBULIN RATIO 0.6 (1.0-2.2); BILIRUBIN,TOTAL 0.4 mg/dL (0.2-1.0); CALCIUM 8.1 mg/dL (8.5-10.3); CREATININE 1.4 mg/dL (0.4-1.0); PHOSPHORUS 2.5 mg/dL (2.5-4.6); POTASSIUM 3.1 mmol/L (3.5-5.0)
[2017-02-16] MEDS: SODIUM CHLORIDE FLUSH 0.9% 10 ML SYRINGE IVP SCH ×3 (06:30→23:12)
[2017-02-16] MEDS: PANTOPRAZOLE 40 MG VIAL IVP SCH (06:30)
[2017-02-16] MEDS: POTASSIUM CHLOR 20 MEQ/100 ML 20 MEQ/100 ML BAG IV SCH ×2 (06:30→08:57)
--- NOTE | 2017-02-16 07:20 | PROVIDER PROGRESS NOTE ---
Subjective - Prog Note Date Prog Note Date: 02/16/17 Prog Note Time: 07:19 - Subjective Subjective: she is still confused, hallucinating per the nurse. She keeps and pointing to the corner room saying "over there". On telemetry she is in bigeminy with frequent ectopy. She is really not cooperating enough to do her p.o. meds to swallow. She does have a wherewithal to tell the nurse her foot hurts. She they have used Dilaudid occasionally but today's nurses going to try and avoid using Dilaudid to avoid over sedating her. Current Medications - Current Medications Current Medications: Active Medications Albuterol () 2.5 mg INH Q4H PRN PRN Reason: Wheezing Amitriptyline HCl (Elavil) 150 mg PO QPM [facility] Aspirin (St Flavio Aspirin) 81 mg PO DAILY [facility] Atorvastatin Calcium (Lipitor) 20 mg PO QPM [facility] Carboxymethylcellulose (Refresh 1% Ophth Drops) 1 drops EACHEYE BID [facility] Last Admin: 02/15/17 21:24 Dose: Not Given Citalopram Hydrobromide (Celexa) 20 mg PO QPM [facility] Diltiazem HCl (Cardizem Cd) 240 mg PO BID [facility] Docusate Sodium (Colace 250mg Capsule) 250 mg PO BID [facility] Duloxetine HCl (Cymbalta) 60 mg PO DAILY [facility] Last Admin: 02/15/17 09:03 Dose: Not Given Gabapentin (Neurontin) 800 mg PO BID [facility] Last Admin: 02/15/17 21:24 Dose: Not Given Guaifenesin (Mucinex) 600 mg PO BID [facility] Heparin Sodium (Porcine) () 5,000 unit SUBQ BID [facility] Last Admin: 02/15/17 21:25 Dose: 5,000 unit Hydromorphone HCl (Dilaudid) 1 mg IVP Q2HR PRN PRN Reason: PAIN Last Admin: 02/16/17 01:26 Dose: 1 mg Norepinephrine Bitartrate 8 mg (/ Dextrose) 250 mls @ 15 mls/hr IV .[id number] [facility] ; 8 MCG/MIN PRN Reason: Protocol Last Admin: 02/16/17 05:36 Dose: Not Given Ciprofloxacin (Cipro 400 Mg/200 Ml) 200 mls @ 200 mls/hr IV Q24H [facility] Last Infusion: 02/16/17 03:35 Dose: Infused Vancomycin/Sodium Chloride (Vanco/Sod Chloride 0.9%) 1.5 gm in 500 mls @ 250 mls/hr IV Q48H JEAN Dextrose (D5w) 1,000 mls @ 100 mls/hr IV .Q10H [facility] Last Admin: 02/15/17 21:24 Dose: 100 mls/hr Potassium Chloride (Potassium Chloride) 20 meq in 100 mls @ 100 mls/hr IV Q1H JEAN PRN Reason: Protocol Stop: 02/16/17 07:59 Last Admin: 02/16/17 06:30 Dose: 100 mls/hr Lorazepam (Ativan Inj) 0.5 mg IVP Q2HR PRN PRN Reason: Anxiety Last Admin: 02/15/17 16:03 Dose: 0.5 mg Metoprolol Tartrate (Lopressor Inj) 5 mg IVP Q8H [facility] Last Admin: 02/16/17 01:26 Dose: 5 mg Mirtazapine (Remeron) 15 mg PO QPM [facility] Last Admin: 02/15/17 21:25 Dose: Not Given Multivitamins (Theragran) 1 tab PO DAILYWM [facility] Ondansetron HCl (Zofran Inj) 4 mg IVP Q6HR PRN PRN Reason: Nausea / Vomiting Pantoprazole Sodium (Protonix) 40 mg IVP QDAC [facility] Last Admin: 02/16/17 06:30 Dose: 40 mg Perphenazine (Trilafon) 16 mg PO BID [facility] Potassium Chloride (Micro-K) 10 meq PO BID [facility] Quetiapine Fumarate (Seroquel) 300 mg PO QPM [facility] Last Admin: 02/15/17 21:25 Dose: Not Given Sodium Chloride (Normal Saline Flush 0.9%) 10 ml IVP Q8HR [facility] Last Admin: 02/16/17 06:30 Dose: 10 ml Sodium Chloride (Normal Saline Flush 0.9%) 10 ml IVP PRN PRN PRN Reason: NEEDED PER PROVIDER ORDERS Last Admin: 02/15/17 21:25 Dose: 10 ml Aspirin Chewable [St Flavio Aspirin] 81 mg PO DAILY 09/29/13 Citalopram [CeleXA] 20 mg PO QPM 09/29/13 Docusate Sodium 500 mg PO BID 09/29/13 Omeprazole [PriLOSEC] 20 mg PO DAILY 09/29/13 diltiaZEM CD [Cardizem Cd] 240 mg PO BID 09/29/13 Multivitamin [Multivitamins] 1 each PO DAILY 06/06/14 Potassium Chloride 20 meq PO DAILY 06/06/14 Albuterol 2.5 mg INH Q4H PRN 02/14/17 Duloxetine HCl [Cymbalta] 60 mg PO DAILY 02/14/17 Furosemide [Lasix] 40 mg PO BIDDIURETIC 02/14/17 Gabapentin [Neurontin] 900 mg PO TID 02/14/17 Losartan [Cozaar] 100 mg PO DAILY 02/14/17 Naproxen [Naprosyn] 500 mg PO BIDWM 02/14/17 Oxycodone HCl/Acetaminophen [Percocet 5-325 mg Tablet] 2 each PO Q3H PRN MDD 12 TABS/24H 02/14/17 QUEtiapine [SEROquel] 300 mg PO QPM 02/14/17 Senna [Senokot] 17.2 mg PO DAILY 02/14/17 diphenhydrAMINE [Benadryl] 25 mg PO BID PRN 02/14/17 oxyCODONE/ACET 5/325 [Percocet 5 mg/325 mg] 2 each PO DAILY 02/14/17 tiZANidine [Zanaflex] 4 mg PO Q8H 02/14/17 Objective - Vital Signs/Intake & Output Reviewed Vital Signs: Yes Vital Signs: Vital Signs x48h Temp Pulse Resp BP BP Pulse Ox 02/16/17 06:00 89 11 L 144/89 H 98 02/16/17 05:00 87 12 130/76 98 02/16/17 04:00 37.0 C 80 11 L 108/69 98 02/16/17 03:00 79 12 118/68 98 02/16/17 02:00 77 10 L 130/76 98 02/16/17 01:26 150/96 H 02/16/17 01:00 93 16 150/96 H 94 02/16/17 00:00 36.9 C 91 14 151/89 H 95 Intake & Output: Intake & Output 02/13/17 02/14/17 02/15/17 02/16/17 23:59 23:59 23:59 23:59 Intake Total 2731.043 3156.417 200 Output Total 8488 5790 908 Balance -9073.957 -958.583 -705 - Objective General Appearance: positive: No acute distress, Lethargic, Other (flat vague facial expression, acknowledges me but no real lucid speech) Eyes Bilateral: positive: PERRL ENT: positive: No signs of dehydration Neck: positive: No JVD. negative: Stiff neck, Carotid bruit Respiratory: positive: Chest non-tender. negative: Breath sounds nml (corarse upper airway tubular breath sounds), Wheezes, Rales, Rhonchi Cardiovascular: positive: Regular rate & rhythm. negative: Systolic murmur, Gallop/S4, Friction rub Abdomen: positive: Non-tender, No organomegaly, Nml bowel sounds, No distention Skin: positive: Warm, Dry Extremities: positive: No pedal edema, Other (BKA on one leg). negative: Joint swelling, Zia's sign/cords Neurologic/Psychiatric: positive: Motor nml (will reach out to grab RN or Aides hands, try to move sheets to get out of bed), Disoriented to person, Disoriented to place, Disoriented to time - Lab Results Fish Bones: 02/15/17 04:15 02/16/17 05:30 Other Labs: Lab Results x24hrs 02/16/17 02/16/17 02/15/17 Range/Units 05:30 05:30 09:40 PT 12.8 H (9.9-12.6) secs INR 1.1 (0.8-1.2) VBG pH 7.353 (7.31-7.41) Ionized Calcium 1.17 (1.15-1.33) mmol/L Sodium 138 (135-145) mmol/L Potassium 3.1 L (3.5-5.0) mmol/L Chloride 106 (101-111) mmol/L Carbon Dioxide 26 (21-32) mmol/L Anion Gap 6.0 (6-13) BUN 37 H (6-20) mg/dL Creatinine 1.4 H (0.4-1.0) mg/dL Estimated GFR (MDRD) 37 L (>89) Glucose 136 H (70-100) mg/dL Calcium 8.1 L (8.5-10.3) mg/dL Phosphorus 2.5 (2.5-4.6) mg/dL Total Bilirubin 0.4 (0.2-1.0) mg/dL AST 20 (10-42) IU/L ALT 20 (10-60) IU/L Alkaline Phosphatase 56 (42-121) IU/L Total Protein 6.0 L (6.7-8.2) g/dL Albumin 2.3 L (3.2-5.5) g/dL Globulin 3.7 (2.1-4.2) g/dL Albumin/Globulin Ratio 0.6 L (1.0-2.2) Assessment/Plan - Problem List (1) Septic shock Impression: BP improved an Pt off Levophed 02/15 Source if UTI with (+) blood and urine cultures: Proteus. Resistant to Cipro but sensitive to rocephin Day #3 Vancomycin and Cipro Continue hydration with iv saline and stop vancomycin/cipro change to rocephin (2) Pyelonephritis Assessment/Plan: Pt has a chronic indwelling urinary catheter and [place] staff saw purulence around skin site. Gram stain with gram neg rods and gram (+) cocci culture is Gram neg rods. change to rocephin MRSA nares (+) but I won't treat at this time with vancomycin (3) Acute hyperactive delirium due to multiple etiologies Assessment/Plan: Intermittent confusion possibly due to hypotension, dementia or her schizophrenia history. Continue soft restraints until able to take her psych meds po to help with hyperactivity. [facility] has called us and I will return their call to see if they can help me resume medications appropriately (4) Acute on chronic renal failure Assessment/Plan: Improving BUN/creat with iv saline hydration. Continue saline. Follow electrolytes, BUN and creat. Laboratory Tests 02/14/17 02/16/17 01:43 05:30 Creatinine 3.7 H 1.4 H (5) T2DM (type 2 diabetes mellitus) Assessment/Plan: Pt not on her usual Insulin dose? Medication reconciliation shows no diabetic medication using SS Insulin low coverage and has adequate control No change in managment at this time continue to monitor A1c is 6.4% Selected Entries 02/15/17 02/15/17 02/15/17 05:11 12:00 12:16 Result (mg/dL) 114 58 58 02/15/17 02/15/17 02/15/17 12:43 17:42 23:59 Result (mg/dL) 155 118 148 02/16/17 02/16/17 06:00 11:30 Result (mg/dL) 136 127
[2017-02-16] MEDS ORDERED: VANCOMYCIN 1.5 GM/NS 500 ML 1.5 GM/500 ML BAG IV SCH (08:00)
[2017-02-16] MEDS: LORazepam 2 MG/ML SYRINGE IVP PRN ×4 (08:30→21:04)
[2017-02-16] MEDS: DEXTROSE 5% 1,000 ML IV SCH ×3 (08:58→21:13)
[2017-02-16] MEDS: CARBOXYMETHYLCELLULOSE OPHTH DROPS EACHEYE SCH ×2 (08:59→20:58)
[2017-02-16] MEDS: DULoxetine 30 MG CAPSULE PO SCH (08:59)
[2017-02-16] MEDS: GABAPENTIN 400 MG CAPSULE PO SCH ×2 (09:00→22:28)
[2017-02-16] MEDS: HEPARIN 5,000 UNIT/ML VIAL SUBQ SCH ×2 (09:00→21:00)
[2017-02-16] MEDS ORDERED: diphenhydrAMINE 25 MG CAPSULE PO PRN (11:46)
[2017-02-16] MEDS: tiZANidine 4 MG TABLET PO SCH ×2 (13:11→20:46)
[2017-02-16] MEDS: ERTAPENEM 1 GM in SODIUM CHLORIDE 0.9% MINIBAG 100 ML IV SCH (13:12)
[2017-02-16] MEDS: GABAPENTIN 300 MG CAPSULE PO SCH ×2 (13:23→22:27)
[2017-02-16] MEDS ORDERED: HALOPERIDOL 5 MG/ML VIAL IM PRN (18:43)
[2017-02-16] MEDS: QUEtiapine 100 MG TABLET PO SCH (20:49)
[2017-02-16] MEDS: MIRTAZAPINE 15 MG TABLET PO SCH (22:28)
[2017-02-17] MEDS: LORazepam 2 MG/ML SYRINGE IVP PRN ×2 (00:12→05:10)
[2017-02-17] MEDS: METOPROLOL 5 MG/5 ML VIAL IVP SCH ×3 (02:51→16:40)
[2017-02-17 05:19] LABS: CALCIUM, IONIZED 1.15 mmol/L (1.15-1.33); VBG PH 7.427 (7.31-7.41)
[2017-02-17 05:39] LABS: ALBUMIN/GLOBULIN RATIO 0.6 (1.0-2.2); BILIRUBIN,TOTAL < 0.2 mg/dL (0.2-1.0); BUN - BLOOD UREA NITROGEN 20 mg/dL (6-20); CALCIUM 8.3 mg/dL (8.5-10.3); CARBON DIOXIDE - CO2 28 mmol/L (21-32); CHLORIDE 102 mmol/L (101-111); CREATININE 1.1 mg/dL (0.4-1.0); GFR - MDRD 49 (>89); GLUCOSE 130 mg/dL (70-100); PHOSPHORUS 1.9 mg/dL (2.5-4.6); POTASSIUM 3.1 mmol/L (3.5-5.0); SODIUM 138 mmol/L (135-145); TOTAL PROTEIN 5.6 g/dL (6.7-8.2)
[2017-02-17] MEDS ORDERED: POTASSIUM PHOSPHATE 15 MMOL in SODIUM CHLORIDE 0.9% 250 ML IV SCH (06:08)
[2017-02-17] MEDS: tiZANidine 4 MG TABLET PO SCH ×3 (06:09→21:28)
[2017-02-17] MEDS: GABAPENTIN 300 MG CAPSULE PO SCH ×3 (06:24→22:55)
[2017-02-17] MEDS: SODIUM CHLORIDE FLUSH 0.9% 10 ML SYRINGE IVP SCH ×3 (06:25→16:40)
[2017-02-17] MEDS: POTASSIUM CHLOR 20 MEQ/100 ML 20 MEQ/100 ML BAG IV SCH ×2 (06:26→07:22)
[2017-02-17] MEDS: PANTOPRAZOLE 40 MG VIAL IVP SCH (07:00)
[2017-02-17] MEDS: ERTAPENEM 1 GM in SODIUM CHLORIDE 0.9% MINIBAG 100 ML IV SCH (08:00)
--- NOTE | 2017-02-17 08:30 | PROVIDER PROGRESS NOTE ---
Subjective - Prog Note Date Prog Note Date: 02/17/17 Prog Note Time: 08:32 - Subjective Subjective: The patient continues to be minimally responsive. She is responsive to sternal rub, occasionally will open her eyes to voice stimulation. But she really has no meaningful speech. She is not swallowing or eating because she is not alert enough to do so. I spoke to her son this morning. He describes her as an elderly woman who is living in his condo for 17 years in [place]. They moved her here in April 2013. He had been going down there with his sister to take care of her since 2010 and she was hospitalized twice. They noted that when she started hallucinating that was when she was getting another urinary tract infection and they would immediately put her on oral antibiotics that were on hold for her. Once she got so sick and went to the hospital and was comatose with her infection and then quickly recovered. Another hospitalization she was so slow to respond that she had to be placed in a longterm facility for rehab for over a month. She was in the hospital for a week and then went to the rehab for a month maybe even 6 weeks to be able to ramp up to be able to dress herself and feed herself and go back to baseline. With that placement she lost a significant weight from 200 to 140 pounds because of her inability to eat enough. Since her move up to [facility] April 2013, she has done well. She was hospitalized in May 2015. And now this time. When she is at baseline at [facility] she feeds her cell, dresses herself, walks around the facility. Current Medications - Current Medications Current Medications: Active Medications Albuterol () 2.5 mg INH Q4H PRN PRN Reason: Wheezing Last Admin: 02/16/17 10:30 Dose: 2.5 mg Amitriptyline HCl (Elavil) 150 mg PO QPM [facility] Aspirin (St Flavio Aspirin) 81 mg PO DAILY [facility] Atorvastatin Calcium (Lipitor) 20 mg PO QPM [facility] Carboxymethylcellulose (Refresh 1% Ophth Drops) 1 drops EACHEYE BID JEAN Last Admin: 02/17/17 08:31 Dose: 2 drops Citalopram Hydrobromide (Celexa) 20 mg PO QPM [facility] Diltiazem HCl (Cardizem Cd) 240 mg PO BID [facility] Diphenhydramine HCl (Benadryl) 25 mg PO BID PRN PRN Reason: RASH Docusate Sodium (Colace 250mg Capsule) 250 mg PO BID [facility] Duloxetine HCl (Cymbalta) 60 mg PO DAILY [facility] Last Admin: 02/17/17 08:37 Dose: Not Given Gabapentin (Neurontin) 900 mg PO TID [facility] Last Admin: 02/17/17 06:24 Dose: Not Given Guaifenesin (Mucinex) 600 mg PO BID [facility] Haloperidol (Haldol Inj) 1 mg IM TID PRN PRN Reason: Agitation Heparin Sodium (Porcine) () 5,000 unit SUBQ BID [facility] Last Admin: 02/17/17 08:36 Dose: 5,000 unit Hydromorphone HCl (Dilaudid) 1 mg IVP Q2HR PRN PRN Reason: PAIN Last Admin: 02/16/17 01:26 Dose: 1 mg Norepinephrine Bitartrate 8 mg (/ Dextrose) 250 mls @ 15 mls/hr IV .[id number] JEAN ; 8 MCG/MIN PRN Reason: Protocol Last Admin: 02/16/17 22:29 Dose: Not Given Dextrose (D5w) 1,000 mls @ 100 mls/hr IV .Q10H [facility] Last Admin: 02/17/17 08:45 Dose: 100 mls/hr Ertapenem 1 gm/ Sodium (Chloride) 100 mls @ 200 mls/hr IV DAILY [facility] Last Infusion: 02/17/17 09:05 Dose: Infused Lorazepam (Ativan Inj) 0.5 mg IVP Q2HR PRN PRN Reason: Anxiety Last Admin: 02/17/17 05:10 Dose: 0.5 mg Metoprolol Tartrate (Lopressor Inj) 5 mg IVP Q8H [facility] Last Admin: 02/17/17 08:37 Dose: Not Given Mirtazapine (Remeron) 15 mg PO QPM [facility] Last Admin: 02/16/17 22:28 Dose: Not Given Multivitamins (Theragran) 1 tab PO DAILYWM [facility] Ondansetron HCl (Zofran Inj) 4 mg IVP Q6HR PRN PRN Reason: Nausea / Vomiting Pantoprazole Sodium (Protonix) 40 mg IVP QDAC [facility] Last Admin: 02/17/17 07:00 Dose: 40 mg Perphenazine (Trilafon) 16 mg PO BID JEAN Potassium Chloride (Micro-K) 10 meq PO BID JEAN Quetiapine Fumarate (Seroquel) 300 mg PO QPM [facility] Last Admin: 02/16/17 20:49 Dose: 300 mg Sodium Chloride (Normal Saline Flush 0.9%) 10 ml IVP Q8HR JEAN Last Admin: 02/17/17 08:31 Dose: 10 ml Sodium Chloride (Normal Saline Flush 0.9%) 10 ml IVP PRN PRN PRN Reason: NEEDED PER PROVIDER ORDERS Last Admin: 02/17/17 09:02 Dose: 10 ml Tizanidine HCl (Zanaflex) 4 mg PO Q8H [facility] Last Admin: 02/17/17 06:09 Dose: Not Given Aspirin Chewable [St Flavio Aspirin] 81 mg PO DAILY 09/29/13 Citalopram [CeleXA] 20 mg PO QPM 09/29/13 Docusate Sodium 500 mg PO BID 09/29/13 Omeprazole [PriLOSEC] 20 mg PO DAILY 09/29/13 diltiaZEM CD [Cardizem Cd] 240 mg PO BID 09/29/13 Multivitamin [Multivitamins] 1 each PO DAILY 06/06/14 Potassium Chloride 20 meq PO DAILY 06/06/14 Albuterol 2.5 mg INH Q4H PRN 02/14/17 Duloxetine HCl [Cymbalta] 60 mg PO DAILY 02/14/17 Furosemide [Lasix] 40 mg PO BIDDIURETIC 02/14/17 Gabapentin [Neurontin] 900 mg PO TID 02/14/17 Losartan [Cozaar] 100 mg PO DAILY 02/14/17 Naproxen [Naprosyn] 500 mg PO BIDWM 02/14/17 Oxycodone HCl/Acetaminophen [Percocet 5-325 mg Tablet] 2 each PO Q3H PRN MDD 12 TABS/24H 02/14/17 QUEtiapine [SEROquel] 300 mg PO QPM 02/14/17 Senna [Senokot] 17.2 mg PO DAILY 02/14/17 diphenhydrAMINE [Benadryl] 25 mg PO BID PRN 02/14/17 oxyCODONE/ACET 5/325 [Percocet 5 mg/325 mg] 2 each PO DAILY 02/14/17 tiZANidine [Zanaflex] 4 mg PO Q8H 02/14/17 Objective - Vital Signs/Intake & Output Reviewed Vital Signs: Yes Vital Signs: Vital Signs x48h Temp Pulse Pulse Resp BP BP Pulse Ox 02/17/17 08:00 89 23 122/69 02/17/17 07:20 78 24 02/17/17 07:00 84 23 148/80 H 95 02/17/17 06:00 76 25 H 119/66 02/17/17 05:00 71 24 123/59 L 96 02/17/17 04:00 37.0 C 76 21 119/59 L 97 02/17/17 03:00 75 27 H 101/57 L 02/17/17 02:51 97/54 L 02/17/17 02:00 69 22 102/56 L 02/17/17 01:00 70 22 97/54 L Intake & Output: Intake & Output 02/14/17 02/15/17 02/16/17 02/17/17 23:59 23:59 23:59 23:59 Intake Total 2731.043 3156.417 2600 93.333 Output Total 3815 4115 2821 1190 Balance -1083.957 -958.583 -221 -1096.667 - Objective General Appearance: positive: No acute distress, Other (Eyes closed, breathing with her mouth open, responsive to voice and sternal rub but not alert enough to be conversant or to swallow) Eyes Bilateral: positive: PERRL ENT: positive: Dry mucous membranes (From mouth breathing) Neck: positive: No JVD. negative: Stiff neck, Carotid bruit Respiratory: positive: Chest non-tender, No respiratory distress, Wheezes, Rales , Rhonchi, Other (Coarse upper airway sounds) Cardiovascular: positive: Regular rate & rhythm. negative: Systolic murmur, Gallop/S4, Friction rub Abdomen: positive: Non-tender, No organomegaly, Nml bowel sounds, No distention , Other (She does not grimace with pain when I do palpation) Skin: positive: Warm, Dry Extremities: positive: No pedal edema. negative: Joint swelling, Zia's sign/ cords Neurologic/Psychiatric: positive: Other (Has spontaneous movement of all limbs. There is no focal deficit. But movement is not purposeful. Eyes open occasionally to voice. Does withdraw to sternal rub.) - Lab Results Fish Bones: 02/15/17 04:15 02/17/17 05:00 Other Labs: Lab Results x24hrs 02/17/17 02/17/17 Range/Units 05:00 05:00 VBG pH 7.427 H (7.31-7.41) Ionized Calcium 1.15 (1.15-1.33) mmol/L Sodium 138 (135-145) mmol/L Potassium 3.1 L (3.5-5.0) mmol/L Chloride 102 (101-111) mmol/L Carbon Dioxide 28 (21-32) mmol/L Anion Gap 8.0 (6-13) BUN 20 (6-20) mg/dL Creatinine 1.1 H (0.4-1.0) mg/dL Estimated GFR (MDRD) 49 L (>89) Glucose 130 H (70-100) mg/dL Calcium 8.3 L (8.5-10.3) mg/dL Phosphorus 1.9 L (2.5-4.6) mg/dL Total Bilirubin < 0.2 L (0.2-1.0) mg/dL AST 19 (10-42) IU/L ALT 18 (10-60) IU/L Alkaline Phosphatase 44 (42-121) IU/L Total Protein 5.6 L (6.7-8.2) g/dL Albumin 2.1 L (3.2-5.5) g/dL Globulin 3.5 (2.1-4.2) g/dL Albumin/Globulin Ratio 0.6 L (1.0-2.2) Assessment/Plan - Problem List (1) Septic shock Impression: Resolved. BP improved an Pt off Levophed 02/15 Source is UTI with (+) blood and urine cultures: Proteus. Resistant to Cipro but sensitive to rocephin s/p 3 Days Vancomycin and Cipro Continued hydration with iv saline and vancomycin/cipro stopped 02/16 changed to rocephin Day #2 today (2) Pyelonephritis Assessment/Plan: Pt has a chronic indwelling urinary catheter and NH staff saw purulence around skin site. Gram stain with gram neg rods and gram (+) cocci culture is Proteus changed to rocephin Day #2 today MRSA nares (+) but I won't treat at this time with vancomycin (3) Acute hyperactive delirium due to multiple etiologies Assessment/Plan: Intermittent confusion possibly due to hypotension, dementia or her schizophrenia history. Documented by son above. Continue soft restraints until able to take her psych meds po to help with hyperactivity. she is not really reponding in a way that allows oral intake, etc. She is not at baseline according to son. She may need prolonged rehab again as he indicatated in today's subjective. sleeping most of the time. mouth open. not able to swallow bc of aspiration risk in a sedated patient. decrease haldol dose that I started yesterday? (4) Acute on chronic renal failure Assessment/Plan: Improving BUN/creat with iv saline hydration. Continue saline. Follow electrolytes, BUN and creat. Laboratory Tests 02/14/17 02/16/17 01:43 05:30 Creatinine 3.7 H 1.4 H Laboratory Tests 02/17/17 05:00 Creatinine 1.1 H (5) T2DM (type 2 diabetes mellitus) Assessment/Plan: Pt not on her usual Insulin dose? Medication reconciliation shows no diabetic medication using SS Insulin low coverage and has adequate control Selected Entries 02/16/17 02/16/17 02/17/17 11:30 18:00 00:00 Result (mg/dL) 127 129 141 02/17/17 06:00 Result (mg/dL) 130 Is NPO No change in managment at this time continue to monitor A1c is 6.4%
[2017-02-17] MEDS: CARBOXYMETHYLCELLULOSE OPHTH DROPS EACHEYE SCH ×2 (08:31→21:28)
[2017-02-17] MEDS: HEPARIN 5,000 UNIT/ML VIAL SUBQ SCH ×2 (08:36→21:28)
[2017-02-17] MEDS: DULoxetine 30 MG CAPSULE PO SCH (08:37)
[2017-02-17] MEDS: DEXTROSE 5% 1,000 ML IV SCH (08:45)
[2017-02-17] MEDS: SODIUM CHLORIDE FLUSH 0.9% 10 ML SYRINGE IVP PRN ×2 (09:02→16:40)
[2017-02-17] MEDS: HYDROmorphone 1 MG/ML AMP IVP PRN ×2 (12:56→16:39)
[2017-02-17] MEDS ORDERED: GENTAMICIN PER PHARMACY (DO NOT LOAD) IV SCH (15:00)
[2017-02-17] MEDS ORDERED: SODIUM CHLORIDE 0.9% IV SCH (15:00)
[2017-02-17] MEDS ORDERED: GENTAMICIN IV SCH (15:00)
[2017-02-17] MEDS: MIRTAZAPINE 15 MG TABLET PO SCH (21:28)
[2017-02-17] MEDS: QUEtiapine 100 MG TABLET PO SCH (21:28)
[2017-02-18] MEDS: DEXTROSE 5% 1,000 ML IV SCH ×3 (00:47→20:25)
[2017-02-18] MEDS: METOPROLOL 5 MG/5 ML VIAL IVP SCH ×3 (00:47→16:25)
[2017-02-18] MEDS: HYDROmorphone 1 MG/ML AMP IVP PRN ×2 (01:13→11:37)
[2017-02-18] MEDS: tiZANidine 4 MG TABLET PO SCH ×3 (03:50→20:26)
[2017-02-18] MEDS: LORazepam 2 MG/ML SYRINGE IVP PRN ×2 (04:31→08:55)
[2017-02-18] MEDS: GABAPENTIN 300 MG CAPSULE PO SCH ×3 (05:53→21:07)
[2017-02-18] MEDS: PANTOPRAZOLE 40 MG VIAL IVP SCH (06:00)
[2017-02-18] MEDS: SODIUM CHLORIDE FLUSH 0.9% 10 ML SYRINGE IVP SCH ×3 (06:00→20:27)
[2017-02-18 08:06] LABS: BASOPHILS # (AUTO) 0.1 10^3/uL (0.0-0.1); BASOPHILS % (AUTO) 1.2 %; EOSINOPHILS # (AUTO) 0.2 10^3/uL (0.0-0.7); EOSINOPHILS % (AUTO) 3.8 %; HCT - HEMATOCRIT 32.1 % (37.0-47.0); HGB - HEMOGLOBIN 10.7 g/dL (12.0-16.0); LYMPHOCYTES # (AUTO) 1.2 10^3/uL (1.5-3.5); LYMPHOCYTES % (AUTO) 19.4 %; MEAN CORPUSCULAR HEMOGLOBIN 27.3 pg (27.0-31.0); MEAN CORPUSCULAR HGB CONC 33.4 g/dL (32.0-36.0); MEAN CORPUSCULAR VOLUME 81.9 fL (81.0-99.0); MEAN PLATELET VOLUME 8.8 fL (7.9-10.8); MONOCYTES # (AUTO) 0.8 10^3/uL (0.0-1.0); MONOCYTES % (AUTO) 11.8 %; NEUTROPHILS % (AUTO) 63.8 %; NUCLEATED RED BLOOD CELLS AUTO 0.1 /100WBC; RED BLOOD COUNT 3.92 10^6/uL (4.20-5.40); RED CELL DISTRIBUTION WIDTH 16.3 % (12.0-15.0); UNCORRECTED WHITE BLOOD COUNT 6.3 x10^3/uL; WHITE BLOOD COUNT 6.3 x10^3/uL (4.8-10.8)
[2017-02-18 08:08] LABS: CALCIUM 7.9 mg/dL (8.5-10.3); POTASSIUM 3.2 mmol/L (3.5-5.0)
[2017-02-18] MEDS: HEPARIN 5,000 UNIT/ML VIAL SUBQ SCH ×2 (08:53→20:38)
[2017-02-18] MEDS: DULoxetine 30 MG CAPSULE PO SCH (08:55)
[2017-02-18] MEDS: CARBOXYMETHYLCELLULOSE OPHTH DROPS EACHEYE SCH ×3 (08:55→20:43)
[2017-02-18] MEDS: SODIUM CHLORIDE FLUSH 0.9% 10 ML SYRINGE IVP PRN ×3 (11:37→21:09)
[2017-02-18] MEDS: IMIPENEM/CILASTATIN 500 MG in SODIUM CHLORIDE 0.9% MINIBAG 100 ML IV SCH (20:26)
[2017-02-18] MEDS: QUEtiapine 100 MG TABLET PO SCH (20:27)
[2017-02-18] MEDS: MIRTAZAPINE 15 MG TABLET PO SCH (20:27)
[2017-02-18] MEDS ORDERED: SODIUM CHLORIDE 0.9% 100ML 100 ML IV ONE (20:55)
--- NOTE | 2017-02-18 21:39 | PROVIDER PROGRESS NOTE ---
Assessment/Plan - Problem List (1) Sepsis Qualifiers: Sepsis type: Pseudomonas Qualified Code(s): A41.52 - Sepsis due to Pseudomonas Assessment/Plan: Sepsis due to Pseudomonas and proteus- is currently being treated with imipenem (2) Sepsis Qualifiers: Sepsis type: Pseudomonas Qualified Code(s): A41.52 - Sepsis due to Pseudomonas (3) Septic shock Assessment/Plan: has resolved (4) Schizophrenia Qualifiers: Schizophrenia type: unspecified Qualified Code(s): F20.9 - Schizophrenia, unspecified Assessment/Plan: is being treated with remeron and seroquel (5) Acute on chronic renal failure Assessment/Plan: is resolving with IV fluids (6) Peripheral neuropathy Qualifiers: Peripheral neuropathy type: polyneuropathy, unspecified Qualified Code(s): G62.9 - Polyneuropathy, unspecified Assessment/Plan: is being treated with cymbalta and neurontin (7) Essential hypertension Assessment/Plan: is being treated with metoprolol tartrate (8) Anxiety Assessment/Plan: is being treated with lorazepam (9) Pain Assessment/Plan: is being treated with dilaudid - Current Meds Current Meds: Current Medications Generic Name Dose Route Start Last Admin Trade Name Freq PRN Reason Stop Dose Admin Albuterol 2.5 mg 02/14/17 10:07 02/16/17 10:30 INH 2.5 mg Q4H PRN Administration Wheezing Carboxymethylcellulose 1 drops 02/14/17 09:00 02/18/17 20:43 Refresh 1% Ophth Drops EACHEYE Not Given BID JEAN Duloxetine HCl 60 mg 02/15/17 09:00 02/18/17 08:55 Cymbalta PO Not Given DAILY JEAN Gabapentin 900 mg 02/16/17 14:00 02/18/17 21:07 Neurontin PO Not Given TID JEAN Heparin Sodium (Porcine) 5,000 unit 02/14/17 09:00 02/18/17 20:38 SUBQ 5,000 unit BID JEAN Administration Hydromorphone HCl 1 mg 02/14/17 16:35 02/18/17 11:37 Dilaudid IVP 1 mg Q2HR PRN Administration PAIN Dextrose 1,000 mls @ 100 mls/hr 02/15/17 20:00 02/18/17 20:25 D5w IV 100 mls/hr .Q10H JEAN Administration Imipenem/Cilastatin Sodium 500 100 mls @ 200 mls/hr 02/18/17 20:00 02/18/17 21:05 mg/ Sodium Chloride IV Infused Q8H JEAN Infusion Lorazepam 0.5 mg 02/14/17 17:28 02/18/17 08:55 Ativan Inj IVP 0.5 mg Q2HR PRN Administration Anxiety Metoprolol Tartrate 5 mg 02/15/17 17:00 02/18/17 16:25 Lopressor Inj IVP 5 mg Q8H JEAN Administration Mirtazapine 15 mg 02/14/17 21:00 02/18/17 20:27 Remeron PO Not Given QPM JEAN Pantoprazole Sodium 40 mg 02/14/17 07:00 02/18/17 06:00 Protonix IVP 40 mg QDAC JEAN Administration Quetiapine Fumarate 300 mg 02/14/17 21:00 02/18/17 20:27 Seroquel PO Not Given QPM JEAN Sodium Chloride 10 ml 02/14/17 06:00 02/18/17 20:27 Normal Saline Flush 0.9% IVP 20 ml Q8HR JEAN Administration Sodium Chloride 10 ml 02/14/17 03:27 02/18/17 21:09 Normal Saline Flush 0.9% IVP 10 ml PRN PRN Administration NEEDED PER PROVIDER ORDERS Tizanidine HCl 4 mg 02/16/17 12:00 02/18/17 20:26 Zanaflex PO Not Given Q8H JEAN - Lab Result Fish Bone Diagrams: 02/18/17 03:00 02/18/17 03:00 - Additional Planning My Orders: My Active Orders 02/18/17 06:58 Heparin Flush 30 - 50 unit IVP ONCE PRN Subjective - Subjective Patient Reports: Feeling Better Nursing Reports: Confused (the patient is not oriented to person, place, or time. She follows no commands.) Objective Vital Signs: Vital Signs - 24 hr 02/17/17 02/18/17 02/18/17 22:50 00:20 00:47 Temperature 37.1 C Heart Rate 89 Heart Rate [ 99 Brachial] Heart Rate [ Radial] Respiratory 18 16 Rate Blood Pressure 152/81 H Blood Pressure 152/81 H [Right Radial artery] O2 Saturation 94 02/18/17 02/18/17 02/18/17 07:28 07:45 08:54 Temperature Heart Rate 83 Heart Rate [ 85 Brachial] Heart Rate [ Radial] Respiratory 20 18 Rate Blood Pressure 146/82 H Blood Pressure 146/82 H [Right Radial artery] O2 Saturation 02/18/17 02/18/17 02/18/17 12:15 15:45 15:57 Temperature 36.6 C 37.4 C Heart Rate 67 Heart Rate [ 82 Brachial] Heart Rate [ 76 Radial] Respiratory 16 16 Rate Blood Pressure Blood Pressure 160/86 H [Right Radial artery] O2 Saturation 99 93 02/18/17 16:25 Temperature Heart Rate Heart Rate [ Brachial] Heart Rate [ Radial] Respiratory Rate Blood Pressure 160/86 H Blood Pressure [Right Radial artery] O2 Saturation Oxygen O2 Source Room air I&O (Last 24 Hrs): Intake and Output Totals x24h 02/16/17 02/17/17 02/18/17 23:59 23:59 23:59 Intake Total 2600 2804.416 2068.834 Output Total 2821 2740 2450 Balance -221 64.416 -381.166 General: Alert HEENT: Atraumatic, PERRLA Neck: Supple Neuro: Disoriented Cardiovascular: Regular rate, Normal S1, Normal S2 Respiratory: Chest non-tender, No respiratory distress, Breath sounds nml Abdomen: Normal bowel sounds, Soft, No tenderness Extremities: No edema - Results Results: Laboratory Results WBC 6.3 x10^3/uL (4.8-10.8) 02/18/17 03:00 RBC 3.92 10^6/uL (4.20-5.40) L 02/18/17 03:00 Hgb 10.7 g/dL (12.0-16.0) L 02/18/17 03:00 Hct 32.1 % (37.0-47.0) L 02/18/17 03:00 MCV 81.9 fL (81.0-99.0) 02/18/17 03:00 MCH 27.3 pg (27.0-31.0) 02/18/17 03:00 MCHC 33.4 g/dL (32.0-36.0) 02/18/17 03:00 RDW 16.3 % (12.0-15.0) H 02/18/17 03:00 Plt Count 141 10^3/uL (130-450) 02/18/17 03:00 MPV 8.8 fL (7.9-10.8) 02/18/17 03:00 Neut # 4.0 10^3/uL (1.5-6.6) 02/18/17 03:00 Lymph # 1.2 10^3/uL (1.5-3.5) L 02/18/17 03:00 Ramsey # 0.8 10^3/uL (0.0-1.0) 02/18/17 03:00 Eos # 0.2 10^3/uL (0.0-0.7) 02/18/17 03:00 Baso # 0.1 10^3/uL (0.0-0.1) 02/18/17 03:00 Absolute Nucleated RBC 0.00 x10^3/uL 02/18/17 03:00 Total Counted 100 02/14/17 22:16 Band Neuts % (Manual) 24 % (0-10) H 02/14/17 22:16 Reactive Lymphs % (Man) 2 % 02/14/17 01:43 Nucleated RBC % 0.1 /100WBC 02/18/17 03:00 Neutrophils # (Manual) 11.6 10^3/uL (1.5-6.6) H 02/14/17 22:16 Lymphocytes # (Manual) 0.8 10^3/uL (1.5-3.5) L 02/14/17 22:16 Monocytes # (Manual) 0.4 10^3/uL (0.0-1.0) 02/14/17 22:16 Eosinophils # (Manual) 0.4 10^3/uL (0-0.7) 02/14/17 06:30 Nucleated RBCs 1 % 02/14/17 01:43 Differential Comment MANUAL DIFFERENTIAL 02/14/17 22:16 Manual Slide Review Indicated 02/18/17 03:00 Platelet Estimate NORMAL (130-450,000) (NORMAL) 02/14/17 22:16 Platelet Morphology NORMAL APPEARANCE (NORMAL) 02/14/17 22:16 RBC Morph Micro Appear 1+ ANISOCYTOSIS (NORMAL) 02/18/17 03:00 PT 12.8 secs (9.9-12.6) H 02/15/17 09:40 INR 1.1 (0.8-1.2) 02/15/17 09:40 VBG pH 7.427 (7.31-7.41) H 02/17/17 05:00 Ionized Calcium 1.15 mmol/L (1.15-1.33) 02/17/17 05:00 Sodium 135 mmol/L (135-145) 02/18/17 03:00 Potassium 3.2 mmol/L (3.5-5.0) L 02/18/17 03:00 Chloride 103 mmol/L (101-111) 02/18/17 03:00 Carbon Dioxide 24 mmol/L (21-32) 02/18/17 03:00 Anion Gap 8.0 (6-13) 02/18/17 03:00 BUN 13 mg/dL (6-20) 02/18/17 03:00 Creatinine 1.0 mg/dL (0.4-1.0) 02/18/17 03:00 Estimated GFR (MDRD) 55 (>89) L 02/18/17 03:00 Glucose 127 mg/dL (70-100) H 02/18/17 03:00 POC Whole Bld Glucose 144 mg/dL (70 - 100) H 02/18/17 17:36 Glycated Hemoglobin 6.4 % (4.6-6.2) H 02/14/17 01:14 Estim Average Glucose 137 (70-100) H 02/14/17 01:14 Lactic Acid 1.1 mmol/L (0.5-2.2) 02/14/17 22:16 Calcium 7.9 mg/dL (8.5-10.3) L 02/18/17 03:00 Phosphorus 1.9 mg/dL (2.5-4.6) L 02/17/17 05:00 Magnesium 2.0 mg/dL (1.7-2.8) 02/15/17 04:15 Total Bilirubin < 0.2 mg/dL (0.2-1.0) L 02/17/17 05:00 AST 19 IU/L (10-42) 02/17/17 05:00 ALT 18 IU/L (10-60) 02/17/17 05:00 Alkaline Phosphatase 44 IU/L (42-121) 02/17/17 05:00 Total Protein 5.6 g/dL (6.7-8.2) L 02/17/17 05:00 Albumin 2.1 g/dL (3.2-5.5) L 02/17/17 05:00 Globulin 3.5 g/dL (2.1-4.2) 02/17/17 05:00 Albumin/Globulin Ratio 0.6 (1.0-2.2) L 02/17/17 05:00 Urine Color DARK YELLOW 02/14/17 01:18 Urine Clarity TURBID (CLEAR) 02/14/17 01:18 Urine pH 6.5 PH (5.0-7.5) 02/14/17 01:18 Ur Specific Dawson 1.020 (1.002-1.030) 02/14/17 01:18 Urine Protein >=300 mg/dL (NEGATIVE) H 02/14/17 01:18 Urine Glucose (UA) NEGATIVE mg/dL (NEGATIVE) 02/14/17 01:18 Urine Ketones TRACE mg/dL (NEGATIVE) 02/14/17 01:18 Urine Occult Blood LARGE (NEGATIVE) H 02/14/17 01:18 Urine Nitrite POSITIVE (NEGATIVE) H 02/14/17 01:18 Urine Bilirubin NEGATIVE (NEGATIVE) 02/14/17 01:18 Urine Urobilinogen 0.2 (NORMAL) E.U./dL (NORMAL) 02/14/17 01:18 Ur Leukocyte Esterase LARGE (NEGATIVE) H 02/14/17 01:18 Urine RBC 6-10 /HPF (0-5) H 02/14/17 01:18 Urine WBC >25 /HPF (0-5) H 02/14/17 01:18 Ur Squamous Epith Cells NONE SEEN (<= Few) 02/14/17 01:18 Urine Bacteria None Seen /HPF (None Seen) 02/14/17 01:18 Ur Microscopic Review INDICATED 02/14/17 01:18 Urine Culture Comments INDICATED 02/14/17 01:18 Last Dose Date UNK 02/18/17 03:00 Last Dose Time UNK 02/18/17 03:00 Random Gentamicin 6.9 ug/mL 02/18/17 03:00 - Procedures Procedures: Procedures CONTINUOUS INVASIVE MECHANICAL VENTILATION <96 CONSEC HRS (09/29/13) INSERT ENDOTRACHEAL TUBE (09/29/13) INSERT GASTRIC TUBE NEC (09/29/13) INSERTION OF INFUSION DEV INTO SUP VENA CAVA, PERC APPROACH (05/20/15) REPLACE CYSTOSTOMY TUBE (06/12/14) RETROGRADE PYELOGRAM (06/12/14) TU BLADDER CLEARANCE (06/12/14) VENOUS CATHETERIZATION NEC (09/29/13)
[2017-02-19] MEDS: METOPROLOL 5 MG/5 ML VIAL IVP SCH ×3 (01:15→18:16)
[2017-02-19] MEDS: SODIUM CHLORIDE FLUSH 0.9% 10 ML SYRINGE IVP PRN ×4 (01:16→12:57)
[2017-02-19] MEDS: tiZANidine 4 MG TABLET PO SCH ×3 (04:12→20:15)
[2017-02-19] MEDS: IMIPENEM/CILASTATIN 500 MG in SODIUM CHLORIDE 0.9% MINIBAG 100 ML IV SCH ×3 (04:20→20:14)
[2017-02-19] MEDS: GABAPENTIN 300 MG CAPSULE PO SCH ×3 (05:51→21:58)
[2017-02-19] MEDS: SODIUM CHLORIDE FLUSH 0.9% 10 ML SYRINGE IVP SCH ×3 (06:01→22:58)
[2017-02-19] MEDS: PANTOPRAZOLE 40 MG VIAL IVP SCH (06:01)
[2017-02-19] MEDS: DEXTROSE 5% 1,000 ML IV SCH ×2 (06:29→16:55)
[2017-02-19 06:35] LABS: CALCIUM 8.5 mg/dL (8.5-10.3); CREATININE 0.8 mg/dL (0.4-1.0); POTASSIUM 3.2 mmol/L (3.5-5.0)
[2017-02-19 06:44] LABS: HGB - HEMOGLOBIN 11.2 g/dL (12.0-16.0); MEAN PLATELET VOLUME 8.1 fL (7.9-10.8); UNCORRECTED WHITE BLOOD COUNT 9.7 x10^3/uL; WHITE BLOOD COUNT 9.7 x10^3/uL (4.8-10.8)
[2017-02-19 06:52] LABS: BASOPHILS % (AUTO) 0.4 %; HCT - HEMATOCRIT 33.9 % (37.0-47.0); LYMPHOCYTES % (AUTO) 17.7 %; MEAN CORPUSCULAR HEMOGLOBIN 27.2 pg (27.0-31.0); MEAN CORPUSCULAR HGB CONC 33.1 g/dL (32.0-36.0); MEAN CORPUSCULAR VOLUME 82.2 fL (81.0-99.0); MONOCYTES % (AUTO) 7.8 %; NEUTROPHILS % (AUTO) 70.1 %; RED BLOOD COUNT 4.12 10^6/uL (4.20-5.40); RED CELL DISTRIBUTION WIDTH 15.9 % (12.0-15.0)
[2017-02-19 07:28] LABS: BAND NEUTROPHILS % (MANUAL) 5 %; EOSINOPHILS % (MANUAL) 6 %; LYMPHOCYTES % (MANUAL) 3 %; NEUTROPHILS % (MANUAL) 68 %; TOTAL CELLS COUNTED 100
[2017-02-19 07:29] LABS: NP AUTO DIFFERENTIAL? YES; NP MAN DIFFERENTIAL? NO
[2017-02-19] MEDS: CARBOXYMETHYLCELLULOSE OPHTH DROPS EACHEYE SCH ×2 (10:02→21:57)
[2017-02-19] MEDS: DULoxetine 30 MG CAPSULE PO SCH (10:02)
[2017-02-19] MEDS: HEPARIN 5,000 UNIT/ML VIAL SUBQ SCH ×2 (10:02→20:57)
[2017-02-19] MEDS: POTASSIUM CHLOR 10 MEQ/100 ML 10 MEQ/100 ML BAG IV SCH ×4 (10:03→23:21)
[2017-02-19] MEDS: SODIUM CHLORIDE 0.9% IV SCH (16:56)
[2017-02-19] MEDS: GENTAMICIN IV SCH (16:56)
--- NOTE | 2017-02-19 18:33 | XRAY Preliminary Report ---
Exam: XR CHEST 1 VIEW IMPRESSION: 1. Right jugular line tip inferior third SVC. 2. Otherwise, unremarkable exam. [facility] SITE ID: [id number]
--- NOTE | 2017-02-19 18:44 | XRAY Report ---
EXAM: CHEST RADIOGRAPHY EXAM DATE: 02/19/2017 05:51 PM. CLINICAL HISTORY: Check central line placement. COMPARISON: 02/14/2017. TECHNIQUE: 1 view. FINDINGS: Lungs/Pleura: No focal opacities evident. No pleural effusion. No pneumothorax. Improved diaphragmati c excursion. Normal lung volumes. Mediastinum: Within exam limitations, the cardiomediastinal contour is normal. Other: Right jugular line tip remains inferior third SVC. IMPRESSION: 1. Right jugular line tip inferior third SVC. 2. Otherwise, unremarkable exam. [facility] Referring Provider Line: [phone] SITE ID: [id number]
--- NOTE | 2017-02-19 19:35 | PROVIDER PROGRESS NOTE ---
Assessment/Plan - Problem List (1) Sepsis Qualifiers: Sepsis type: Pseudomonas Qualified Code(s): A41.52 - Sepsis due to Pseudomonas Assessment/Plan: sepsis due to pseudomonas and proteus-is currently being treated with imipenem (2) Sepsis Qualifiers: Sepsis type: Pseudomonas Qualified Code(s): A41.52 - Sepsis due to Pseudomonas Assessment/Plan: sepsis- pseudomonas (3) Septic shock Assessment/Plan: resolved (4) Schizophrenia Qualifiers: Schizophrenia type: unspecified Qualified Code(s): F20.9 - Schizophrenia, unspecified Assessment/Plan: is being treated with remeron and seroquel (5) Acute on chronic renal failure Assessment/Plan: has resolved with IV fluids (6) Peripheral neuropathy Qualifiers: Peripheral neuropathy type: polyneuropathy, unspecified Qualified Code(s): G62.9 - Polyneuropathy, unspecified Assessment/Plan: is being treated with cymbalta and neurontin (7) Essential hypertension Assessment/Plan: is being treated with metoprolol tartrate (8) Anxiety Assessment/Plan: is being treated with lorazepam (9) Pain Assessment/Plan: is being treated with dilaudid (10) Complicated wound infection Assessment/Plan: proteus mirailis, pseudomonal aeruginosa, and enterococcus grew in culture from the wound catheter site. - Current Meds Current Meds: Current Medications Generic Name Dose Route Start Last Admin Trade Name Freq PRN Reason Stop Dose Admin Albuterol 2.5 mg 02/14/17 10:07 02/16/17 10:30 INH 2.5 mg Q4H PRN Administration Wheezing Carboxymethylcellulose 1 drops 02/14/17 09:00 02/19/17 10:02 Refresh 1% Ophth Drops EACHEYE Not Given BID JEAN Duloxetine HCl 60 mg 02/15/17 09:00 02/19/17 10:02 Cymbalta PO Not Given DAILY JEAN Gabapentin 900 mg 02/16/17 14:00 02/19/17 15:17 Neurontin PO Not Given TID JEAN Heparin Sodium (Porcine) 5,000 unit 02/14/17 09:00 02/19/17 10:02 SUBQ Not Given BID JEAN Dextrose 1,000 mls @ 100 mls/hr 02/15/17 20:00 02/19/17 17:00 D5w IV 0 mls/hr .Q10H JEAN Infusion Imipenem/Cilastatin Sodium 500 100 mls @ 200 mls/hr 02/18/17 20:00 02/19/17 13:26 mg/ Sodium Chloride IV Infused Q8H JEAN Infusion Gentamicin Sulfate 510 mg/ 112.75 mls @ 100 mls/hr 02/19/17 16:00 02/19/17 17 :00 Sodium Chloride IV 0 mls/hr Q48H JEAN Infusion Lorazepam 0.5 mg 02/14/17 17:28 02/18/17 08:55 Ativan Inj IVP 0.5 mg Q2HR PRN Administration Anxiety Metoprolol Tartrate 5 mg 02/15/17 17:00 02/19/17 18:16 Lopressor Inj IVP Not Given Q8H JEAN Mirtazapine 15 mg 02/14/17 21:00 02/18/17 20:27 Remeron PO Not Given QPM JEAN Pantoprazole Sodium 40 mg 02/14/17 07:00 02/19/17 06:01 Protonix IVP 40 mg QDAC JEAN Administration Quetiapine Fumarate 300 mg 02/14/17 21:00 02/18/17 20:27 Seroquel PO Not Given QPM JEAN Sodium Chloride 10 ml 02/14/17 06:00 02/19/17 13:55 Normal Saline Flush 0.9% IVP Not Given Q8HR JEAN Sodium Chloride 10 ml 02/14/17 03:27 02/19/17 12:57 Normal Saline Flush 0.9% IVP 10 ml PRN PRN Administration NEEDED PER PROVIDER ORDERS Tizanidine HCl 4 mg 02/16/17 12:00 02/19/17 12:43 Zanaflex PO Not Given Q8H JEAN - Lab Result Fish Bone Diagrams: 02/19/17 06:10 02/19/17 06:10 - Additional Planning My Orders: My Active Orders 02/19/17 14:00 Nutrition Consult [CONS] Routine 02/19/17 18:00 Zinc Oxide 20% Oint [Zinc Oxide] 1 applic TOP BID 02/19/17 21:00 Potassium Chlor 10 Meq/100 ml [Potassium Chloride] 10 meq in 100 ml IV Q1H 02/19/17 Dinner Soft Mechanical Diet [DIET] Time Spent: 15-30 minutes Subjective - Subjective Patient Reports: Feeling Better (The patient is more alert today. She still does not know her name. She knows that she is in the hospital. She does not know the year. She follows some directions. She is eating now.) Objective Vital Signs: Vital Signs - 24 hr 02/18/17 02/19/17 02/19/17 23:50 01:15 07:31 Temperature 37.1 C 36.4 C L Heart Rate [ 71 75 Radial] Respiratory 18 20 Rate Blood Pressure 145/72 H Blood Pressure [Right Brachial artery] Blood Pressure 152/77 H 158/77 H [Right Radial artery] O2 Saturation 95 98 02/19/17 02/19/17 13:25 16:35 Temperature 36.5 C Heart Rate [ 58 L 68 Radial] Respiratory 18 18 Rate Blood Pressure Blood Pressure 176/68 H 158/77 H [Right Brachial artery] Blood Pressure [Right Radial artery] O2 Saturation 98 97 Oxygen O2 Source Room air I&O (Last 24 Hrs): Intake and Output Totals x24h 02/17/17 02/18/17 02/19/17 23:59 23:59 23:59 Intake Total 2804.416 2068.834 2225.000 Output Total 2740 2900 1650 Balance 64.416 -831.166 575.000 General: Alert, Other (oriented only to place) HEENT: Atraumatic, PERRLA Neck: Supple, No JVD Neuro: Alert, Disoriented, CN 2-12 Grossly Intact Cardiovascular: Regular rate, Normal S1, Normal S2 Respiratory: Chest non-tender, No respiratory distress, Breath sounds nml Abdomen: Normal bowel sounds, Soft, No tenderness Extremities: No edema - Results Results: Laboratory Results WBC 9.7 x10^3/uL (4.8-10.8) 02/19/17 06:10 RBC 4.12 10^6/uL (4.20-5.40) L 02/19/17 06:10 Hgb 11.2 g/dL (12.0-16.0) L 02/19/17 06:10 Hct 33.9 % (37.0-47.0) L 02/19/17 06:10 MCV 82.2 fL (81.0-99.0) 02/19/17 06:10 MCH 27.2 pg (27.0-31.0) 02/19/17 06:10 MCHC 33.1 g/dL (32.0-36.0) 02/19/17 06:10 RDW 15.9 % (12.0-15.0) H 02/19/17 06:10 Plt Count 179 10^3/uL (130-450) 02/19/17 06:10 MPV 8.1 fL (7.9-10.8) 02/19/17 06:10 Neut # Not Reportable 02/19/17 06:10 Lymph # Not Reportable 02/19/17 06:10 [place] # Not Reportable 02/19/17 06:10 Eos # Not Reportable 02/19/17 06:10 Baso # Not Reportable 02/19/17 06:10 Absolute Nucleated RBC Not Reportable 02/19/17 06:10 Total Counted 100 02/19/17 06:10 Band Neuts % (Manual) 5 % (0-10) 02/19/17 06:10 Reactive Lymphs % (Man) 10 % 02/19/17 06:10 Myelocytes % 3 % (-0) H 02/19/17 06:10 Nucleated RBC % Not Reportable 02/19/17 06:10 Neutrophils # (Manual) 7.1 10^3/uL (1.5-6.6) H 02/19/17 06:10 Lymphocytes # (Manual) 1.3 10^3/uL (1.5-3.5) L 02/19/17 06:10 Monocytes # (Manual) 0.5 10^3/uL (0.0-1.0) 02/19/17 06:10 Eosinophils # (Manual) 0.6 10^3/uL (0-0.7) 02/19/17 06:10 Nucleated RBCs 1 % 02/14/17 01:43 Differential Comment MANUAL DIFFERENTIAL 02/19/17 06:10 Manual Slide Review Indicated 02/18/17 03:00 Platelet Estimate NORMAL (130-450,000) (NORMAL) 02/14/17 22:16 Platelet Morphology NORMAL APPEARANCE (NORMAL) 02/14/17 22:16 RBC Morph Micro Appear 2+ ANISOCYTOSIS (NORMAL) 02/19/17 06:10 PT 12.8 secs (9.9-12.6) H 02/15/17 09:40 INR 1.1 (0.8-1.2) 02/15/17 09:40 VBG pH 7.427 (7.31-7.41) H 02/17/17 05:00 Ionized Calcium 1.15 mmol/L (1.15-1.33) 02/17/17 05:00 Sodium 135 mmol/L (135-145) 02/19/17 06:10 Potassium 3.2 mmol/L (3.5-5.0) L 02/19/17 06:10 Chloride 101 mmol/L (101-111) 02/19/17 06:10 Carbon Dioxide 25 mmol/L (21-32) 02/19/17 06:10 Anion Gap 9.0 (6-13) 02/19/17 06:10 BUN 8 mg/dL (6-20) 02/19/17 06:10 Creatinine 0.8 mg/dL (0.4-1.0) 02/19/17 06:10 Estimated GFR (MDRD) 71 (>89) L 02/19/17 06:10 Glucose 145 mg/dL (70-100) H 02/19/17 06:10 POC Whole Bld Glucose 144 mg/dL (70 - 100) H 02/19/17 16:53 Glycated Hemoglobin 6.4 % (4.6-6.2) H 02/14/17 01:14 Estim Average Glucose 137 (70-100) H 02/14/17 01:14 Lactic Acid 1.1 mmol/L (0.5-2.2) 02/14/17 22:16 Calcium 8.5 mg/dL (8.5-10.3) 02/19/17 06:10 Phosphorus 1.9 mg/dL (2.5-4.6) L 02/17/17 05:00 Magnesium 2.0 mg/dL (1.7-2.8) 02/15/17 04:15 Total Bilirubin < 0.2 mg/dL (0.2-1.0) L 02/17/17 05:00 AST 19 IU/L (10-42) 02/17/17 05:00 ALT 18 IU/L (10-60) 02/17/17 05:00 Alkaline Phosphatase 44 IU/L (42-121) 02/17/17 05:00 Total Protein 5.6 g/dL (6.7-8.2) L 02/17/17 05:00 Albumin 2.1 g/dL (3.2-5.5) L 02/17/17 05:00 Globulin 3.5 g/dL (2.1-4.2) 02/17/17 05:00 Albumin/Globulin Ratio 0.6 (1.0-2.2) L 02/17/17 05:00 Urine Color DARK YELLOW 02/14/17 01:18 Urine Clarity TURBID (CLEAR) 02/14/17 01:18 Urine pH 6.5 PH (5.0-7.5) 02/14/17 01:18 Ur Specific [place] 1.020 (1.002-1.030) 02/14/17 01:18 Urine Protein >=300 mg/dL (NEGATIVE) H 02/14/17 01:18 Urine Glucose (UA) NEGATIVE mg/dL (NEGATIVE) 02/14/17 01:18 Urine Ketones TRACE mg/dL (NEGATIVE) 02/14/17 01:18 Urine Occult Blood LARGE (NEGATIVE) H 02/14/17 01:18 Urine Nitrite POSITIVE (NEGATIVE) H 02/14/17 01:18 Urine Bilirubin NEGATIVE (NEGATIVE) 02/14/17 01:18 Urine Urobilinogen 0.2 (NORMAL) E.U./dL (NORMAL) 02/14/17 01:18 Ur Leukocyte Esterase LARGE (NEGATIVE) H 02/14/17 01:18 Urine RBC 6-10 /HPF (0-5) H 02/14/17 01:18 Urine WBC >25 /HPF (0-5) H 02/14/17 01:18 Ur Squamous Epith Cells NONE SEEN (<= Few) 02/14/17 01:18 Urine Bacteria None Seen /HPF (None Seen) 02/14/17 01:18 Ur Microscopic Review INDICATED 02/14/17 01:18 Urine Culture Comments INDICATED 02/14/17 01:18 Last Dose Date UNK 02/18/17 03:00 Last Dose Time UNK 02/18/17 03:00 Random Gentamicin 6.9 ug/mL 02/18/17 03:00 - Procedures Procedures: Procedures CONTINUOUS INVASIVE MECHANICAL VENTILATION <96 CONSEC HRS (09/29/13) INSERT ENDOTRACHEAL TUBE (09/29/13) INSERT GASTRIC TUBE NEC (09/29/13) INSERTION OF INFUSION DEV INTO SUP VENA CAVA, PERC APPROACH (05/20/15) REPLACE CYSTOSTOMY TUBE (06/12/14) RETROGRADE PYELOGRAM (06/12/14) TU BLADDER CLEARANCE (06/12/14) VENOUS CATHETERIZATION NEC (09/29/13)
[2017-02-19] MEDS: ZINC OXIDE 20% TOP SCH ×2 (20:15→21:00)
[2017-02-19] MEDS: MIRTAZAPINE 15 MG TABLET PO SCH (20:48)
[2017-02-19] MEDS: QUEtiapine 100 MG TABLET PO SCH (20:48)
[2017-02-19] MEDS: LORazepam 2 MG/ML SYRINGE IVP PRN (20:49)
[2017-02-20] MEDS: DEXTROSE 5% 1,000 ML IV SCH ×4 (00:47→22:12)
[2017-02-20] MEDS: METOPROLOL 5 MG/5 ML VIAL IVP SCH (00:58)
[2017-02-20] MEDS: IMIPENEM/CILASTATIN 500 MG in SODIUM CHLORIDE 0.9% MINIBAG 100 ML IV SCH ×3 (03:56→20:44)
[2017-02-20] MEDS: SODIUM CHLORIDE FLUSH 0.9% 10 ML SYRINGE IVP SCH ×3 (03:58→20:45)
[2017-02-20] MEDS: tiZANidine 4 MG TABLET PO SCH ×3 (04:07→20:42)
[2017-02-20] MEDS: SODIUM CHLORIDE FLUSH 0.9% 10 ML SYRINGE IVP PRN ×3 (05:49→21:02)
[2017-02-20] MEDS: PANTOPRAZOLE 40 MG VIAL IVP SCH (05:49)
[2017-02-20] MEDS: GABAPENTIN 300 MG CAPSULE PO SCH ×3 (05:49→20:42)
[2017-02-20] MEDS: HEPARIN 5,000 UNIT/ML VIAL SUBQ SCH ×2 (09:55→20:44)
[2017-02-20] MEDS ORDERED: SODIUM CHLORIDE FLUSH 0.9% 10 ML SYRINGE IVP ONE (10:10)
[2017-02-20] MEDS: CARBOXYMETHYLCELLULOSE OPHTH DROPS EACHEYE SCH ×2 (10:11→20:45)
[2017-02-20] MEDS: DULoxetine 30 MG CAPSULE PO SCH (10:13)
[2017-02-20 10:15] LABS: BASOPHILS % (AUTO) 1.5 %; EOSINOPHILS % (AUTO) 5.7 %; HCT - HEMATOCRIT 34.5 % (37.0-47.0); HGB - HEMOGLOBIN 11.6 g/dL (12.0-16.0); LYMPHOCYTES % (AUTO) 19.8 %; MEAN CORPUSCULAR HEMOGLOBIN 27.4 pg (27.0-31.0); MEAN CORPUSCULAR HGB CONC 33.8 g/dL (32.0-36.0); MEAN CORPUSCULAR VOLUME 81.1 fL (81.0-99.0); MEAN PLATELET VOLUME 7.7 fL (7.9-10.8); MONOCYTES % (AUTO) 6.6 %; NEUTROPHILS % (AUTO) 66.4 %; RED BLOOD COUNT 4.25 10^6/uL (4.20-5.40); RED CELL DISTRIBUTION WIDTH 15.6 % (12.0-15.0); UNCORRECTED WHITE BLOOD COUNT 8.7 x10^3/uL; WHITE BLOOD COUNT 8.7 x10^3/uL (4.8-10.8)
[2017-02-20 10:17] LABS: BAND NEUTROPHILS % (MANUAL) 0 %
[2017-02-20 10:43] LABS: ALBUMIN/GLOBULIN RATIO 0.6 (1.0-2.2); BILIRUBIN,TOTAL 0.5 mg/dL (0.2-1.0); CALCIUM 8.8 mg/dL (8.5-10.3); CREATININE 0.9 mg/dL (0.4-1.0); POTASSIUM 2.9 mmol/L (3.5-5.0); TOTAL PROTEIN 6.9 g/dL (6.7-8.2)
[2017-02-20 11:05] LABS: BASOPHILS % (MANUAL) 1 %; EOSINOPHILS % (MANUAL) 2 %; LYMPHOCYTES % (MANUAL) 14 %; NEUTROPHILS % (MANUAL) 71 %; TOTAL CELLS COUNTED 100
[2017-02-20 11:06] LABS: NP AUTO DIFFERENTIAL? YES; NP MAN DIFFERENTIAL? NO; WBC MORPHOLOGY (MULTIPLE) 1+ TOXIC GRANULATION (NORMAL)
[2017-02-20] MEDS: ZINC OXIDE 20% TOP SCH ×2 (13:35→20:44)
[2017-02-20] MEDS: PERPHENAZINE 4 MG TABLET PO SCH ×2 (14:15→20:42)
[2017-02-20] MEDS: DOCUSATE SODIUM 250 MG CAPSULE PO SCH ×2 (14:58→20:43)
[2017-02-20] MEDS: ASPIRIN CHEW 81 MG TABLET PO SCH (14:58)
[2017-02-20] MEDS: guaiFENesin 600 MG TABLET PO SCH ×2 (14:59→20:44)
[2017-02-20] MEDS: diltiaZEM CD 240 MG CAPSULE PO SCH ×3 (15:00→20:44)
[2017-02-20] MEDS: POTASSIUM CHLORIDE 10 MEQ CAPSULE PO SCH ×2 (15:01→16:15)
[2017-02-20] MEDS: HYDROmorphone 0.5 MG/0.5 ML SYRINGE IVP PRN ×2 (16:14→20:59)
--- NOTE | 2017-02-20 20:17 | PROVIDER PROGRESS NOTE ---
Assessment/Plan - Problem List (1) Sepsis Qualifiers: Sepsis type: Pseudomonas Qualified Code(s): A41.52 - Sepsis due to Pseudomonas Assessment/Plan: sepsis due to pseudomonas and proteus- is currently on imipenem (2) Sepsis Qualifiers: Sepsis type: Pseudomonas Qualified Code(s): A41.52 - Sepsis due to Pseudomonas Assessment/Plan: sepsis-pseudomonas (3) Septic shock Assessment/Plan: resolved (4) Schizophrenia Qualifiers: Schizophrenia type: unspecified Qualified Code(s): F20.9 - Schizophrenia, unspecified Assessment/Plan: on remeron and seroquel. The patient is oriented to person, place, and time today. She is able to eat today and follow directions. (5) Acute on chronic renal failure Assessment/Plan: resolved with IV hydration. (6) Peripheral neuropathy Qualifiers: Peripheral neuropathy type: polyneuropathy, unspecified Qualified Code(s): G62.9 - Polyneuropathy, unspecified Assessment/Plan: on cymbalta and neurontin (7) Essential hypertension Assessment/Plan: on metoprolol tartrate (8) Anxiety Assessment/Plan: on lorazepam (9) Pain Assessment/Plan: on dilaudid (10) Complicated wound infection Assessment/Plan: proteus mirailis, pseudomonus aeruginosa and enterococcus grew in the culture from the wound catheter site. (11) Hypokalemia Assessment/Plan: treated with KCl - Current Meds Current Meds: Current Medications Generic Name Dose Route Start Last Admin Trade Name Freq PRN Reason Stop Dose Admin Albuterol 2.5 mg 02/14/17 10:07 02/16/17 10:30 INH 2.5 mg Q4H PRN Administration Wheezing Aspirin 81 mg 02/20/17 12:00 02/20/17 14:58 [place] Aspirin PO Not Given DAILY JEAN Carboxymethylcellulose 1 drops 02/14/17 09:00 02/20/17 10:11 Refresh 1% Ophth Drops EACHEYE 1 drops BID JEAN Administration Diltiazem HCl 240 mg 02/20/17 12:00 02/20/17 15:04 Cardizem Cd PO 240 mg BID JEAN Administration Docusate Sodium 250 mg 02/20/17 12:00 02/20/17 14:58 Colace 250mg Capsule PO Not Given BID JEAN Duloxetine HCl 60 mg 02/15/17 09:00 02/20/17 10:13 Cymbalta PO 60 mg DAILY JEAN Administration Gabapentin 900 mg 02/16/17 14:00 02/20/17 13:37 Neurontin PO 900 mg TID JEAN Administration Guaifenesin 600 mg 02/20/17 12:00 02/20/17 14:59 Mucinex PO Not Given BID JEAN Heparin Sodium (Porcine) 5,000 unit 02/14/17 09:00 02/20/17 09:55 SUBQ 5,000 unit BID JEAN Administration Hydromorphone HCl 1 mg 02/19/17 14:34 02/20/17 16:14 Dilaudid Inj Syringe IVP 0.5 mg Q2HR PRN Administration PAIN Dextrose 1,000 mls @ 100 mls/hr 02/15/17 20:00 02/20/17 16:14 D5w IV 100 mls/hr .Q10H JEAN Administration Imipenem/Cilastatin Sodium 500 100 mls @ 200 mls/hr 02/18/17 20:00 02/20/17 13:33 mg/ Sodium Chloride IV Infused Q8H JEAN Infusion Gentamicin Sulfate 510 mg/ 112.75 mls @ 100 mls/hr 02/19/17 16:00 02/19/17 21 :30 Sodium Chloride IV Infused Q48H JEAN Infusion Lorazepam 0.5 mg 02/14/17 17:28 02/19/17 20:49 Ativan Inj IVP 0.5 mg Q2HR PRN Administration Anxiety Mirtazapine 15 mg 02/14/17 21:00 02/19/17 20:48 Remeron PO 15 mg QPM JEAN Administration Multi-Ingredient Ointment 1 applic 02/19/17 18:00 02/20/17 13:35 Zinc Oxide TOP 1 applic BID JEAN Administration Perphenazine 16 mg 02/20/17 12:00 02/20/17 14:15 Trilafon PO Not Given BID JEAN Potassium Chloride 10 meq 02/20/17 12:00 02/20/17 16:15 Micro-K PO 10 meq BIDWM JEAN Administration Quetiapine Fumarate 300 mg 02/14/17 21:00 02/19/17 20:48 Seroquel PO 300 mg QPM JEAN Administration Sodium Chloride 10 ml 02/14/17 06:00 02/20/17 15:02 Normal Saline Flush 0.9% IVP Not Given Q8HR JEAN Sodium Chloride 10 ml 02/14/17 03:27 02/20/17 10:09 Normal Saline Flush 0.9% IVP 50 ml PRN PRN Administration NEEDED PER PROVIDER ORDERS Tizanidine HCl 4 mg 02/16/17 12:00 02/20/17 13:37 Zanaflex PO 4 mg Q8H JEAN Administration - Lab Result Lab results reviewed: Yes Fish Bone Diagrams: 02/20/17 10:00 02/20/17 10:00 - Additional Planning Condition/Complexity: Improved (The patiented is oriented to person, place, and time. She is following directions today. She is now eating.) My Orders: My Active Orders 02/20/17 12:00 Aspirin Chewable [[place] Aspirin] 81 mg PO DAILY Docusate Sodium 250Mg Capsule [Colace 250Mg Capsule] 250 mg PO BID Perphenazine [Trilafon] 16 mg PO BID Potassium Chloride [Micro-K] 10 meq PO BIDWM diltiaZEM CD [Cardizem Cd] 240 mg PO BID guaiFENesin [Mucinex] 600 mg PO BID 02/20/17 21:00 Amitriptyline [Elavil] 150 mg PO QPM Atorvastatin [Lipitor] 20 mg PO QPM 02/20/17 Dinner Soft Mechanical Diet [DIET] 02/21/17 05:00 CBC - COMP BLD CT W/AUTO DIFF [HEME] Routine CMP [COMPREHENSIVE METABOLIC PANEL] [CHEM] Routine 02/21/17 07:00 Pantoprazole [Protonix] 40 mg PO QDAC 02/21/17 08:00 Multivitamin [Theragran] 1 tab PO DAILYWM Time Spent: 15-30 minutes Objective Vital Signs: Vital Signs - 24 hr 02/19/17 02/20/17 02/20/17 23:59 00:58 08:00 Temperature 37.2 C 36.8 C Heart Rate [ 105 H Brachial] Heart Rate [ 87 Radial] Respiratory 18 18 Rate Blood Pressure 152/81 H Blood Pressure 152/81 H 156/85 H [Right Brachial artery] O2 Saturation 96 96 02/20/17 15:32 Temperature 36.9 C Heart Rate [ 103 H Brachial] Heart Rate [ Radial] Respiratory 16 Rate Blood Pressure Blood Pressure 151/71 H [Right Brachial artery] O2 Saturation 100 Oxygen O2 Source Room air I&O (Last 24 Hrs): Intake and Output Totals x24h 02/18/17 02/19/17 02/20/17 23:59 23:59 23:59 Intake Total 2068.834 2531.083 3068.333 Output Total 2900 2450 4475 Balance -831.166 81.083 -1406.667 General: Alert, Oriented x3, Cooperative HEENT: Atraumatic, PERRLA, EOMI Neck: Supple Neuro: Alert, CN 2-12 Grossly Intact, Oriented Times 3 Cardiovascular: Regular rate, Normal S1 Respiratory: Chest non-tender, No respiratory distress, Breath sounds nml Abdomen: Normal bowel sounds, Soft, No tenderness Extremities: No edema - Results Results: Laboratory Results WBC 8.7 x10^3/uL (4.8-10.8) 02/20/17 10:00 RBC 4.25 10^6/uL (4.20-5.40) 02/20/17 10:00 Hgb 11.6 g/dL (12.0-16.0) L 02/20/17 10:00 Hct 34.5 % (37.0-47.0) L 02/20/17 10:00 MCV 81.1 fL (81.0-99.0) 02/20/17 10:00 MCH 27.4 pg (27.0-31.0) 02/20/17 10:00 MCHC 33.8 g/dL (32.0-36.0) 02/20/17 10:00 RDW 15.6 % (12.0-15.0) H 02/20/17 10:00 Plt Count 248 10^3/uL (130-450) 02/20/17 10:00 MPV 7.7 fL (7.9-10.8) L 02/20/17 10:00 Neut # Not Reportable 02/20/17 10:00 Lymph # Not Reportable 02/20/17 10:00 [place] # Not Reportable 02/20/17 10:00 Eos # Not Reportable 02/20/17 10:00 Baso # Not Reportable 02/20/17 10:00 Absolute Nucleated RBC Not Reportable 02/20/17 10:00 Total Counted 100 02/20/17 10:00 Band Neuts % (Manual) 0 % (0-10) 02/20/17 10:00 Reactive Lymphs % (Man) 7 % 02/20/17 10:00 Myelocytes % 1 % (-0) H 02/20/17 10:00 Nucleated RBC % Not Reportable 02/20/17 10:00 Neutrophils # (Manual) 6.2 10^3/uL (1.5-6.6) 02/20/17 10:00 Lymphocytes # (Manual) 1.8 10^3/uL (1.5-3.5) 02/20/17 10:00 Monocytes # (Manual) 0.3 10^3/uL (0.0-1.0) 02/20/17 10:00 Eosinophils # (Manual) 0.2 10^3/uL (0-0.7) 02/20/17 10:00 Basophils # (Manual) 0.1 10^3/uL (0-0.1) 02/20/17 10:00 Nucleated RBCs 1 % 02/14/17 01:43 Differential Comment MANUAL DIFFERENTIAL 02/20/17 10:00 Manual Slide Review Indicated 02/18/17 03:00 WBC Morphology 1+ TOXIC GRANULATION (NORMAL) 02/20/17 10:00 Platelet Estimate NORMAL (130-450,000) (NORMAL) 02/14/17 22:16 Platelet Morphology NORMAL APPEARANCE (NORMAL) 02/14/17 22:16 RBC Morph Micro Appear 1+ HYPOCHROMASIA (NORMAL) 1+ POLYCHROMASIA (NORMAL) 02/20/17 10:00 RBC Morph Micro Appear 1+ HYPOCHROMASIA (NORMAL) 1+ POLYCHROMASIA (NORMAL) 02/20/17 10:00 PT 12.8 secs (9.9-12.6) H 02/15/17 09:40 INR 1.1 (0.8-1.2) 02/15/17 09:40 VBG pH 7.427 (7.31-7.41) H 02/17/17 05:00 Ionized Calcium 1.15 mmol/L (1.15-1.33) 02/17/17 05:00 Sodium 140 mmol/L (135-145) 02/20/17 10:00 Potassium 2.9 mmol/L (3.5-5.0) L 02/20/17 10:00 Chloride 108 mmol/L (101-111) 02/20/17 10:00 Carbon Dioxide 22 mmol/L (21-32) 02/20/17 10:00 Anion Gap 10.0 (6-13) 02/20/17 10:00 BUN 8 mg/dL (6-20) 02/20/17 10:00 Creatinine 0.9 mg/dL (0.4-1.0) 02/20/17 10:00 Estimated GFR (MDRD) 62 (>89) L 02/20/17 10:00 Glucose 157 mg/dL (70-100) H 02/20/17 10:00 POC Whole Bld Glucose 124 mg/dL (70 - 100) H 02/20/17 18:54 Glycated Hemoglobin 6.4 % (4.6-6.2) H 02/14/17 01:14 Estim Average Glucose 137 (70-100) H 02/14/17 01:14 Lactic Acid 1.1 mmol/L (0.5-2.2) 02/14/17 22:16 Calcium 8.8 mg/dL (8.5-10.3) 02/20/17 10:00 Phosphorus 1.9 mg/dL (2.5-4.6) L 02/17/17 05:00 Magnesium 2.0 mg/dL (1.7-2.8) 02/15/17 04:15 Total Bilirubin 0.5 mg/dL (0.2-1.0) 02/20/17 10:00 AST 23 IU/L (10-42) 02/20/17 10:00 ALT 17 IU/L (10-60) 02/20/17 10:00 Alkaline Phosphatase 38 IU/L (42-121) L 02/20/17 10:00 Total Protein 6.9 g/dL (6.7-8.2) 02/20/17 10:00 Albumin 2.5 g/dL (3.2-5.5) L 02/20/17 10:00 Globulin 4.4 g/dL (2.1-4.2) H 02/20/17 10:00 Albumin/Globulin Ratio 0.6 (1.0-2.2) L 02/20/17 10:00 Urine Color DARK YELLOW 02/14/17 01:18 Urine Clarity TURBID (CLEAR) 02/14/17 01:18 Urine pH 6.5 PH (5.0-7.5) 02/14/17 01:18 Ur Specific [place] 1.020 (1.002-1.030) 02/14/17 01:18 Urine Protein >=300 mg/dL (NEGATIVE) H 02/14/17 01:18 Urine Glucose (UA) NEGATIVE mg/dL (NEGATIVE) 02/14/17 01:18 Urine Ketones TRACE mg/dL (NEGATIVE) 02/14/17 01:18 Urine Occult Blood LARGE (NEGATIVE) H 02/14/17 01:18 Urine Nitrite POSITIVE (NEGATIVE) H 02/14/17 01:18 Urine Bilirubin NEGATIVE (NEGATIVE) 02/14/17 01:18 Urine Urobilinogen 0.2 (NORMAL) E.U./dL (NORMAL) 02/14/17 01:18 Ur Leukocyte Esterase LARGE (NEGATIVE) H 02/14/17 01:18 Urine RBC 6-10 /HPF (0-5) H 02/14/17 01:18 Urine WBC >25 /HPF (0-5) H 02/14/17 01:18 Ur Squamous Epith Cells NONE SEEN (<= Few) 02/14/17 01:18 Urine Bacteria None Seen /HPF (None Seen) 02/14/17 01:18 Ur Microscopic Review INDICATED 02/14/17 01:18 Urine Culture Comments INDICATED 02/14/17 01:18 Last Dose Date UNK 02/18/17 03:00 Last Dose Time UNK 02/18/17 03:00 Random Gentamicin 6.9 ug/mL 02/18/17 03:00 - Procedures Procedures: Procedures CONTINUOUS INVASIVE MECHANICAL VENTILATION <96 CONSEC HRS (09/29/13) INSERT ENDOTRACHEAL TUBE (09/29/13) INSERT GASTRIC TUBE NEC (09/29/13) INSERTION OF INFUSION DEV INTO SUP VENA CAVA, PERC APPROACH (05/20/15) REPLACE CYSTOSTOMY TUBE (06/12/14) RETROGRADE PYELOGRAM (06/12/14) TU BLADDER CLEARANCE (06/12/14) VENOUS CATHETERIZATION NEC (09/29/13)
[2017-02-20] MEDS ORDERED: POTASSIUM CHLORIDE 10 MEQ CAPSULE PO SCH (20:32)
[2017-02-20] MEDS: ATORVASTATIN 10 MG TABLET PO SCH (20:42)
[2017-02-20] MEDS: AMITRIPTYLINE 25 MG TABLET PO SCH (20:43)
[2017-02-20] MEDS: CITALOPRAM 10 MG TABLET PO SCH (20:43)
[2017-02-20] MEDS: QUEtiapine 100 MG TABLET PO SCH (20:43)
[2017-02-20] MEDS: MIRTAZAPINE 15 MG TABLET PO SCH (20:44)
[2017-02-21] MEDS: IMIPENEM/CILASTATIN 500 MG in SODIUM CHLORIDE 0.9% MINIBAG 100 ML IV SCH ×3 (03:25→20:14)
[2017-02-21] MEDS: DEXTROSE 5% 1,000 ML IV SCH (03:26)
[2017-02-21] MEDS: SODIUM CHLORIDE FLUSH 0.9% 10 ML SYRINGE IVP PRN (03:33)
[2017-02-21] MEDS: tiZANidine 4 MG TABLET PO SCH ×3 (04:06→20:23)
[2017-02-21 05:31] LABS: ALBUMIN/GLOBULIN RATIO 0.6 (1.0-2.2); BILIRUBIN,TOTAL 0.5 mg/dL (0.2-1.0); CALCIUM 8.1 mg/dL (8.5-10.3); CREATININE 1.1 mg/dL (0.4-1.0); POTASSIUM 3.6 mmol/L (3.5-5.0); TOTAL PROTEIN 6.3 g/dL (6.7-8.2)
[2017-02-21 05:36] LABS: BASOPHILS % (AUTO) 0.7 %; EOSINOPHILS % (AUTO) 5.1 %; HCT - HEMATOCRIT 33.4 % (37.0-47.0); HGB - HEMOGLOBIN 10.8 g/dL (12.0-16.0); LYMPHOCYTES % (AUTO) 19.1 %; MEAN CORPUSCULAR HGB CONC 32.3 g/dL (32.0-36.0); MEAN CORPUSCULAR VOLUME 83.6 fL (81.0-99.0); MEAN PLATELET VOLUME 8.2 fL (7.9-10.8); NEUTROPHILS % (AUTO) 68.1 %; RED CELL DISTRIBUTION WIDTH 16.4 % (12.0-15.0); UNCORRECTED WHITE BLOOD COUNT 9.2 x10^3/uL; WHITE BLOOD COUNT 9.2 x10^3/uL (4.8-10.8)
[2017-02-21] MEDS: SODIUM CHLORIDE FLUSH 0.9% 10 ML SYRINGE IVP SCH ×3 (05:45→21:17)
[2017-02-21] MEDS: GABAPENTIN 300 MG CAPSULE PO SCH ×3 (06:48→21:17)
[2017-02-21] MEDS: PANTOPRAZOLE 40 MG TABLET PO SCH (06:49)
[2017-02-21 07:04] LABS: BAND NEUTROPHILS % (MANUAL) 9 %; EOSINOPHILS % (MANUAL) 3 %; LYMPHOCYTES % (MANUAL) 20 %; NEUTROPHILS % (MANUAL) 61 %; NP AUTO DIFFERENTIAL? YES; NP MAN DIFFERENTIAL? NO; PLATELET ESTIMATE, MANUAL NORMAL (130-450,000) (NORMAL); TOTAL CELLS COUNTED 100
[2017-02-21] MEDS: DULoxetine 30 MG CAPSULE PO SCH (10:35)
[2017-02-21] MEDS: DOCUSATE SODIUM 250 MG CAPSULE PO SCH ×2 (10:35→20:20)
[2017-02-21] MEDS: CARBOXYMETHYLCELLULOSE OPHTH DROPS EACHEYE SCH ×2 (10:35→20:38)
[2017-02-21] MEDS: POTASSIUM CHLORIDE 10 MEQ CAPSULE PO SCH ×2 (10:35→16:25)
[2017-02-21] MEDS: PERPHENAZINE 4 MG TABLET PO SCH ×2 (10:35→20:20)
[2017-02-21] MEDS: guaiFENesin 600 MG TABLET PO SCH ×2 (10:36→20:20)
[2017-02-21] MEDS: ASPIRIN CHEW 81 MG TABLET PO SCH (10:36)
[2017-02-21] MEDS: METOPROLOL SUCCINATE 50 MG TABLET PO SCH (10:36)
[2017-02-21] MEDS: diltiaZEM CD 240 MG CAPSULE PO SCH ×2 (10:37→20:21)
[2017-02-21] MEDS: HEPARIN 5,000 UNIT/ML VIAL SUBQ SCH ×2 (10:37→20:24)
[2017-02-21] MEDS: MULTIVITAMIN TABLET PO SCH (10:37)
[2017-02-21] MEDS ORDERED: SODIUM CHLORIDE FLUSH 0.9% 10 ML SYRINGE IVP ONE (12:23)
[2017-02-21] MEDS: ZINC OXIDE 20% TOP SCH ×2 (15:00→20:39)
[2017-02-21] MEDS ORDERED: SODIUM CHLORIDE 0.9% 100ML 100 ML IV ONE (16:09)
[2017-02-21] MEDS: GENTAMICIN IV SCH (16:22)
[2017-02-21] MEDS: SODIUM CHLORIDE 0.9% IV SCH (16:22)
[2017-02-21] MEDS: QUEtiapine 100 MG TABLET PO SCH (20:20)
[2017-02-21] MEDS: MIRTAZAPINE 15 MG TABLET PO SCH (20:22)
[2017-02-21] MEDS: CITALOPRAM 10 MG TABLET PO SCH (20:22)
[2017-02-21] MEDS: AMITRIPTYLINE 25 MG TABLET PO SCH (20:22)
[2017-02-21] MEDS: ATORVASTATIN 10 MG TABLET PO SCH (20:22)
[2017-02-21] MEDS: MIN OIL/DIMETHICON/COCONUT OIL 92 GM TUBE TOP PRN (20:38)
[2017-02-21] MEDS: HYDROmorphone 0.5 MG/0.5 ML SYRINGE IVP PRN (21:32)
--- NOTE | 2017-02-21 22:00 | PROVIDER PROGRESS NOTE ---
Assessment/Plan - Problem List (1) Sepsis Qualifiers: Sepsis type: Pseudomonas Qualified Code(s): A41.52 - Sepsis due to Pseudomonas Assessment/Plan: sepsis due to pseudomonas and proteus- is currently on imipenem (2) Sepsis Qualifiers: Sepsis type: Pseudomonas Qualified Code(s): A41.52 - Sepsis due to Pseudomonas Assessment/Plan: sepsis-pseudomonas (3) Septic shock Assessment/Plan: resolved (4) Schizophrenia Qualifiers: Schizophrenia type: unspecified Qualified Code(s): F20.9 - Schizophrenia, unspecified Assessment/Plan: on remeron and seroquel. The patient was very tired this afternoon and refused to answer any questions. The nurse did tell me that she is eating her meals. She has been following directions for the nurses. (5) Acute on chronic renal failure Assessment/Plan: resolved with IV hydration. (6) Peripheral neuropathy Qualifiers: Peripheral neuropathy type: polyneuropathy, unspecified Qualified Code(s): G62.9 - Polyneuropathy, unspecified Assessment/Plan: on cymbalta and neurontin (7) Essential hypertension Assessment/Plan: on metoprolol tertrate (8) Anxiety Assessment/Plan: on lorazepam (9) Pain Assessment/Plan: on dilaudid (10) Complicated wound infection Assessment/Plan: proteus mirailis , pseudomonas aerurinosa and enterococcus grew in the culture from the wound catheter site (11) Hypokalemia Assessment/Plan: resolved - Current Meds Current Meds: Current Medications Generic Name Dose Route Start Last Admin Trade Name Freq PRN Reason Stop Dose Admin Amitriptyline HCl 150 mg 02/20/17 21:00 02/21/17 20:22 Elavil PO 150 mg QPM JEAN Administration Aspirin 81 mg 02/20/17 12:00 02/21/17 10:36 [facility] Aspirin PO 81 mg DAILY JEAN Administration Atorvastatin Calcium 20 mg 02/20/17 21:00 02/21/17 20:22 Lipitor PO 20 mg QPM JEAN Administration Carboxymethylcellulose 1 drops 02/14/17 09:00 02/21/17 20:38 Refresh 1% Ophth Drops EACHEYE 1 drops BID JEAN Administration Citalopram Hydrobromide 20 mg 02/20/17 21:00 02/21/17 20:22 Celexa PO 20 mg QPM JEAN Administration Diltiazem HCl 240 mg 02/20/17 12:00 02/21/17 20:21 Cardizem Cd PO 240 mg BID JEAN Administration Docusate Sodium 250 mg 02/20/17 12:00 02/21/17 20:20 Colace 250mg Capsule PO 250 mg BID JEAN Administration Duloxetine HCl 60 mg 02/15/17 09:00 02/21/17 10:35 Cymbalta PO 60 mg DAILY JEAN Administration Gabapentin 900 mg 02/16/17 14:00 02/21/17 21:17 Neurontin PO 900 mg TID JEAN Administration Guaifenesin 600 mg 02/20/17 12:00 02/21/17 20:20 Mucinex PO 600 mg BID JEAN Administration Heparin Sodium (Beef Lung) 30 - 50 unit 02/21/17 03:01 02/21/17 03:34 IVP 03/23/17 03:02 50 unit ONCE PRN Administration Central Line Protocol (<24 hr) Heparin Sodium (Porcine) 5,000 unit 02/14/17 09:00 02/21/17 20:24 SUBQ 5,000 unit BID JEAN Administration Hydromorphone HCl 1 mg 02/19/17 14:34 02/21/17 21:32 Dilaudid Inj Syringe IVP 1 mg Q2HR PRN Administration PAIN Imipenem/Cilastatin Sodium 500 100 mls @ 200 mls/hr 02/18/17 20:00 02/21/17 20:50 mg/ Sodium Chloride IV Infused Q8H JEAN Infusion Gentamicin Sulfate 510 mg/ 112.75 mls @ 100 mls/hr 02/19/17 16:00 02/21/17 17 :37 Sodium Chloride IV Infused Q48H JEAN Infusion Dextrose 1,000 mls @ 30 mls/hr 02/20/17 21:36 02/21/17 17:37 D5w IV 30 mls/hr .[id number] JEAN Infusion Lorazepam 0.5 mg 02/14/17 17:28 02/19/17 20:49 Ativan Inj IVP 0.5 mg Q2HR PRN Administration Anxiety Metoprolol Succinate 50 mg 02/20/17 13:00 02/21/17 10:36 Toprol Xl PO 50 mg DAILY JEAN Administration Mineral Oil 1 applic 02/17/17 15:01 02/21/17 20:38 Cavilon TOP 1 appful PRN PRN Administration Skin Care Mirtazapine 15 mg 02/14/17 21:00 02/21/17 20:22 Remeron PO 15 mg QPM JEAN Administration Multi-Ingredient Ointment 1 applic 02/19/17 18:00 02/21/17 20:39 Zinc Oxide TOP 1 applic BID JEAN Administration Multivitamins 1 tab 02/21/17 08:00 02/21/17 10:37 Theragran PO 1 tab DAILYWM JEAN Administration Pantoprazole Sodium 40 mg 02/21/17 07:00 02/21/17 06:49 Protonix PO 40 mg QDAC JEAN Administration Perphenazine 16 mg 02/20/17 12:00 02/21/17 20:20 Trilafon PO 16 mg BID JEAN Administration Potassium Chloride 10 meq 02/20/17 12:00 02/21/17 16:25 Micro-K PO 10 meq BIDWM JEAN Administration Quetiapine Fumarate 300 mg 02/14/17 21:00 02/21/17 20:20 Seroquel PO 300 mg QPM JEAN Administration Sodium Chloride 10 ml 02/14/17 06:00 02/21/17 21:17 Normal Saline Flush 0.9% IVP 10 ml Q8HR JEAN Administration Sodium Chloride 10 ml 02/14/17 03:27 02/21/17 03:33 Normal Saline Flush 0.9% IVP 30 ml PRN PRN Administration NEEDED PER PROVIDER ORDERS Tizanidine HCl 4 mg 02/16/17 12:00 02/21/17 20:23 Zanaflex PO 4 mg Q8H JEAN Administration - Lab Result Lab results reviewed: Yes Fish Bone Diagrams: 02/21/17 03:30 02/21/17 03:30 - Additional Planning Condition/Complexity: Stable My Orders: My Active Orders 02/20/17 21:00 Amitriptyline [Elavil] 150 mg PO QPM Atorvastatin [Lipitor] 20 mg PO QPM 02/20/17 21:36 Dextrose 5% [D5w] 1,000 ml IV 30 mls/hr 02/21/17 Pharmacy Consult [CONS] Routine Evaluate and Treat PT [PT] Routine 02/21/17 03:01 Heparin Flush 30 - 50 unit IVP ONCE PRN 02/21/17 07:00 Pantoprazole [Protonix] 40 mg PO QDAC 02/21/17 08:00 Multivitamin [Theragran] 1 tab PO DAILYWM 02/22/17 05:00 BMP - BASIC METABOLIC PANEL [CHEM] Routine CBC - COMP BLD CT W/AUTO DIFF [HEME] Routine Plan Discussed with:: Patient Time Spent: 15-30 minutes Subjective - Subjective Patient Reports: Feeling Better, No Complaints Objective Vital Signs: Vital Signs - 24 hr 02/21/17 02/21/17 02/21/17 00:15 08:36 17:00 Temperature 36.4 C L 36.9 C 36.9 C Heart Rate [ 79 70 67 Radial] Respiratory 16 96 H 17 Rate Blood Pressure 116/63 [Left Brachial artery] Blood Pressure 125/60 116/64 [Right Brachial artery] O2 Saturation 100 99 Oxygen O2 Source Room air I&O (Last 24 Hrs): Intake and Output Totals x24h 02/19/17 02/20/17 02/21/17 23:59 23:59 23:59 Intake Total 2531.083 3963.333 1939.25 Output Total 2450 4875 1750 Balance 81.083 -911.667 189.25 General: Alert, Cooperative, No acute distress HEENT: Atraumatic, PERRLA, EOMI Neck: Supple Neuro: Alert Cardiovascular: Regular rate, Normal S1, Normal S2 Respiratory: Chest non-tender, No respiratory distress, Breath sounds nml Abdomen: Normal bowel sounds, Soft, No tenderness Extremities: No edema - Results Results: Laboratory Results WBC 9.2 x10^3/uL (4.8-10.8) 02/21/17 03:30 RBC 4.00 10^6/uL (4.20-5.40) L 02/21/17 03:30 Hgb 10.8 g/dL (12.0-16.0) L 02/21/17 03:30 Hct 33.4 % (37.0-47.0) L 02/21/17 03:30 MCV 83.6 fL (81.0-99.0) 02/21/17 03:30 MCH 27.0 pg (27.0-31.0) 02/21/17 03:30 MCHC 32.3 g/dL (32.0-36.0) 02/21/17 03:30 RDW 16.4 % (12.0-15.0) H 02/21/17 03:30 Plt Count 239 10^3/uL (130-450) 02/21/17 03:30 MPV 8.2 fL (7.9-10.8) 02/21/17 03:30 Neut # Not Reportable 02/21/17 03:30 Lymph # Not Reportable 02/21/17 03:30 [place] # Not Reportable 02/21/17 03:30 Eos # Not Reportable 02/21/17 03:30 Baso # Not Reportable 02/21/17 03:30 Absolute Nucleated RBC Not Reportable 02/21/17 03:30 Total Counted 100 02/21/17 03:30 Band Neuts % (Manual) 9 % (0-10) 02/21/17 03:30 Reactive Lymphs % (Man) 7 % 02/20/17 10:00 Myelocytes % 1 % (-0) H 02/20/17 10:00 Nucleated RBC % Not Reportable 02/21/17 03:30 Neutrophils # (Manual) 6.4 10^3/uL (1.5-6.6) 02/21/17 03:30 Lymphocytes # (Manual) 1.8 10^3/uL (1.5-3.5) 02/21/17 03:30 Monocytes # (Manual) 0.6 10^3/uL (0.0-1.0) 02/21/17 03:30 Eosinophils # (Manual) 0.3 10^3/uL (0-0.7) 02/21/17 03:30 Basophils # (Manual) 0.1 10^3/uL (0-0.1) 02/20/17 10:00 Nucleated RBCs 1 % 02/14/17 01:43 Differential Comment MANUAL DIFFERENTIAL 02/21/17 03:30 Manual Slide Review Indicated 02/18/17 03:00 WBC Morphology 1+ TOXIC GRANULATION (NORMAL) 02/20/17 10:00 Platelet Estimate NORMAL (130-450,000) (NORMAL) 02/21/17 03:30 Platelet Morphology NORMAL APPEARANCE (NORMAL) 02/14/17 22:16 RBC Morph Micro Appear 1+ HYPOCHROMASIA (NORMAL) 1+ POLYCHROMASIA (NORMAL) 02/20/17 10:00 RBC Morph Micro Appear NORMAL APPEARANCE (NORMAL) 02/21/17 03:30 PT 12.8 secs (9.9-12.6) H 02/15/17 09:40 INR 1.1 (0.8-1.2) 02/15/17 09:40 VBG pH 7.427 (7.31-7.41) H 02/17/17 05:00 Ionized Calcium 1.15 mmol/L (1.15-1.33) 02/17/17 05:00 Sodium 134 mmol/L (135-145) L 02/21/17 03:30 Potassium 3.6 mmol/L (3.5-5.0) 02/21/17 03:30 Chloride 106 mmol/L (101-111) 02/21/17 03:30 Carbon Dioxide 22 mmol/L (21-32) 02/21/17 03:30 Anion Gap 6.0 (6-13) 02/21/17 03:30 BUN 11 mg/dL (6-20) 02/21/17 03:30 Creatinine 1.1 mg/dL (0.4-1.0) H 02/21/17 03:30 Estimated GFR (MDRD) 49 (>89) L 02/21/17 03:30 Glucose 99 mg/dL (70-100) 02/21/17 03:30 POC Whole Bld Glucose 122 mg/dL (70 - 100) H 02/21/17 11:43 Glycated Hemoglobin 6.4 % (4.6-6.2) H 02/14/17 01:14 Estim Average Glucose 137 (70-100) H 02/14/17 01:14 Lactic Acid 1.1 mmol/L (0.5-2.2) 02/14/17 22:16 Calcium 8.1 mg/dL (8.5-10.3) L 02/21/17 03:30 Phosphorus 1.9 mg/dL (2.5-4.6) L 02/17/17 05:00 Magnesium 2.0 mg/dL (1.7-2.8) 02/15/17 04:15 Total Bilirubin 0.5 mg/dL (0.2-1.0) 02/21/17 03:30 AST 17 IU/L (10-42) 02/21/17 03:30 ALT 14 IU/L (10-60) 02/21/17 03:30 Alkaline Phosphatase 32 IU/L (42-121) L 02/21/17 03:30 Total Protein 6.3 g/dL (6.7-8.2) L 02/21/17 03:30 Albumin 2.4 g/dL (3.2-5.5) L 02/21/17 03:30 Globulin 3.9 g/dL (2.1-4.2) 02/21/17 03:30 Albumin/Globulin Ratio 0.6 (1.0-2.2) L 02/21/17 03:30 Urine Color DARK YELLOW 02/14/17 01:18 Urine Clarity TURBID (CLEAR) 02/14/17 01:18 Urine pH 6.5 PH (5.0-7.5) 02/14/17 01:18 Ur Specific [place] 1.020 (1.002-1.030) 02/14/17 01:18 Urine Protein >=300 mg/dL (NEGATIVE) H 02/14/17 01:18 Urine Glucose (UA) NEGATIVE mg/dL (NEGATIVE) 02/14/17 01:18 Urine Ketones TRACE mg/dL (NEGATIVE) 02/14/17 01:18 Urine Occult Blood LARGE (NEGATIVE) H 02/14/17 01:18 Urine Nitrite POSITIVE (NEGATIVE) H 02/14/17 01:18 Urine Bilirubin NEGATIVE (NEGATIVE) 02/14/17 01:18 Urine Urobilinogen 0.2 (NORMAL) E.U./dL (NORMAL) 02/14/17 01:18 Ur Leukocyte Esterase LARGE (NEGATIVE) H 02/14/17 01:18 Urine RBC 6-10 /HPF (0-5) H 02/14/17 01:18 Urine WBC >25 /HPF (0-5) H 02/14/17 01:18 Ur Squamous Epith Cells NONE SEEN (<= Few) 02/14/17 01:18 Urine Bacteria None Seen /HPF (None Seen) 02/14/17 01:18 Ur Microscopic Review INDICATED 02/14/17 01:18 Urine Culture Comments INDICATED 02/14/17 01:18 Last Dose Date UNK 02/18/17 03:00 Last Dose Time UNK 02/18/17 03:00 Random Gentamicin 6.9 ug/mL 02/18/17 03:00 - Procedures Procedures: Procedures CONTINUOUS INVASIVE MECHANICAL VENTILATION <96 CONSEC HRS (09/29/13) INSERT ENDOTRACHEAL TUBE (09/29/13) INSERT GASTRIC TUBE NEC (09/29/13) INSERTION OF INFUSION DEV INTO SUP VENA CAVA, PERC APPROACH (05/20/15) REPLACE CYSTOSTOMY TUBE (06/12/14) RETROGRADE PYELOGRAM (06/12/14) TU BLADDER CLEARANCE (06/12/14) VENOUS CATHETERIZATION NEC (09/29/13)
[2017-02-22] MEDS: IMIPENEM/CILASTATIN 500 MG in SODIUM CHLORIDE 0.9% MINIBAG 100 ML IV SCH ×3 (04:49→20:32)
[2017-02-22] MEDS: SODIUM CHLORIDE FLUSH 0.9% 10 ML SYRINGE IVP PRN ×2 (04:50→21:00)
[2017-02-22] MEDS: tiZANidine 4 MG TABLET PO SCH ×3 (04:52→20:35)
[2017-02-22 05:38] LABS: BASOPHILS % (AUTO) 0.5 %; EOSINOPHILS # (AUTO) 0.4 10^3/uL (0.0-0.7); EOSINOPHILS % (AUTO) 4.2 %; HCT - HEMATOCRIT 30.6 % (37.0-47.0); HGB - HEMOGLOBIN 10.5 g/dL (12.0-16.0); LYMPHOCYTES # (AUTO) 2.1 10^3/uL (1.5-3.5); LYMPHOCYTES % (AUTO) 21.9 %; MEAN CORPUSCULAR HEMOGLOBIN 28.6 pg (27.0-31.0); MEAN CORPUSCULAR HGB CONC 34.3 g/dL (32.0-36.0); MEAN CORPUSCULAR VOLUME 83.2 fL (81.0-99.0); MEAN PLATELET VOLUME 7.8 fL (7.9-10.8); MONOCYTES # (AUTO) 0.6 10^3/uL (0.0-1.0); MONOCYTES % (AUTO) 6.7 %; NEUTROPHILS # (AUTO) 6.3 10^3/uL (1.5-6.6); NEUTROPHILS % (AUTO) 66.7 %; RED BLOOD COUNT 3.68 10^6/uL (4.20-5.40); RED CELL DISTRIBUTION WIDTH 15.8 % (12.0-15.0); UNCORRECTED WHITE BLOOD COUNT 9.4 x10^3/uL; WHITE BLOOD COUNT 9.4 x10^3/uL (4.8-10.8)
[2017-02-22 05:47] LABS: CALCIUM 8.3 mg/dL (8.5-10.3); CREATININE 1.4 mg/dL (0.4-1.0); POTASSIUM 3.8 mmol/L (3.5-5.0)
[2017-02-22] MEDS: DEXTROSE 5% 1,000 ML IV SCH ×2 (07:04→14:15)
[2017-02-22] MEDS: PANTOPRAZOLE 40 MG TABLET PO SCH (07:04)
[2017-02-22] MEDS: GABAPENTIN 300 MG CAPSULE PO SCH ×3 (07:04→21:00)
[2017-02-22] MEDS: SODIUM CHLORIDE FLUSH 0.9% 10 ML SYRINGE IVP SCH ×3 (07:10→14:21)
[2017-02-22] MEDS: diltiaZEM CD 240 MG CAPSULE PO SCH ×2 (10:39→20:34)
[2017-02-22] MEDS: METOPROLOL SUCCINATE 50 MG TABLET PO SCH (10:40)
[2017-02-22] MEDS ORDERED: SODIUM CHLORIDE FLUSH 0.9% 10 ML SYRINGE IVP ONE (11:18)
[2017-02-22] MEDS: DOCUSATE SODIUM 250 MG CAPSULE PO SCH ×2 (11:21→20:34)
[2017-02-22] MEDS: POTASSIUM CHLORIDE 10 MEQ CAPSULE PO SCH ×2 (11:21→17:20)
[2017-02-22] MEDS: DULoxetine 30 MG CAPSULE PO SCH (11:21)
[2017-02-22] MEDS: MULTIVITAMIN TABLET PO SCH (11:21)
[2017-02-22] MEDS: guaiFENesin 600 MG TABLET PO SCH ×2 (11:22→20:35)
[2017-02-22] MEDS: ASPIRIN CHEW 81 MG TABLET PO SCH (11:23)
[2017-02-22] MEDS: HEPARIN 5,000 UNIT/ML VIAL SUBQ SCH ×2 (11:27→20:53)
[2017-02-22] MEDS: ZINC OXIDE 20% TOP SCH ×2 (11:53→20:36)
[2017-02-22] MEDS: PERPHENAZINE 4 MG TABLET PO SCH ×2 (11:53→20:33)
[2017-02-22] MEDS: CARBOXYMETHYLCELLULOSE OPHTH DROPS EACHEYE SCH ×2 (11:55→20:35)
[2017-02-22] MEDS: NITROGLYCERIN SL 0.4 MG TABLET SL ONE ×2 (18:16→18:28)
[2017-02-22] MEDS ORDERED: SUCRALFATE 1 GM/10 ML UDC PO SCH (19:20)
--- NOTE | 2017-02-22 20:28 | PROVIDER PROGRESS NOTE ---
Assessment/Plan - Problem List (1) Sepsis Qualifiers: Sepsis type: Pseudomonas Qualified Code(s): A41.52 - Sepsis due to Pseudomonas Assessment/Plan: sepsis due to pseudomonas and proteus- is currently on imipenem (2) Sepsis Qualifiers: Sepsis type: Pseudomonas Qualified Code(s): A41.52 - Sepsis due to Pseudomonas Assessment/Plan: sepsis-pseudomonas (3) Septic shock Assessment/Plan: resolved (4) Schizophrenia Qualifiers: Schizophrenia type: unspecified Qualified Code(s): F20.9 - Schizophrenia, unspecified Assessment/Plan: on remeron and seroquel. The patient is oriented to person, place, and time. She is much more alert today. She is eating all of her meals. She is following instructions. She is feeling better. Possibly discharged tomorrow. (5) Acute on chronic renal failure Assessment/Plan: resolved with IV hydration (6) Peripheral neuropathy Qualifiers: Peripheral neuropathy type: polyneuropathy, unspecified Qualified Code(s): G62.9 - Polyneuropathy, unspecified Assessment/Plan: on cymbalta and neurontin (7) Essential hypertension Assessment/Plan: on metoprolol tartrate (8) Anxiety Assessment/Plan: on lorazepam (9) Pain Assessment/Plan: on dilaudid (10) Complicated wound infection Assessment/Plan: proteus mirablis, pseudomonas aeruginosa, and enterococcus grew in the culture from the wound catheter site. (11) Hypokalemia Assessment/Plan: resolved - Current Meds Current Meds: Current Medications Generic Name Dose Route Start Last Admin Trade Name Freq PRN Reason Stop Dose Admin Amitriptyline HCl 150 mg 02/20/17 21:00 02/21/17 20:22 Elavil PO 150 mg QPM JEAN Administration Aspirin 81 mg 02/20/17 12:00 02/22/17 11:23 [facility] Aspirin PO 81 mg DAILY JEAN Administration Atorvastatin Calcium 20 mg 02/20/17 21:00 02/21/17 20:22 Lipitor PO 20 mg QPM JEAN Administration Carboxymethylcellulose 1 drops 02/14/17 09:00 02/22/17 11:55 Refresh 1% Ophth Drops EACHEYE Not Given BID JEAN Citalopram Hydrobromide 20 mg 02/20/17 21:00 02/21/17 20:22 Celexa PO 20 mg QPM JEAN Administration Diltiazem HCl 240 mg 02/20/17 12:00 02/22/17 10:39 Cardizem Cd PO Not Given BID JEAN Docusate Sodium 250 mg 02/20/17 12:00 02/22/17 11:21 Colace 250mg Capsule PO 250 mg BID JEAN Administration Duloxetine HCl 60 mg 02/15/17 09:00 02/22/17 11:21 Cymbalta PO 60 mg DAILY JEAN Administration Gabapentin 900 mg 02/16/17 14:00 02/22/17 11:53 Neurontin PO 900 mg TID JEAN Administration Guaifenesin 600 mg 02/20/17 12:00 02/22/17 11:22 Mucinex PO 600 mg BID JEAN Administration Heparin Sodium (Beef Lung) 30 - 50 unit 02/21/17 03:01 02/21/17 03:34 IVP 03/23/17 03:02 50 unit ONCE PRN Administration Central Line Protocol (<24 hr) Heparin Sodium (Porcine) 5,000 unit 02/14/17 09:00 02/22/17 11:27 SUBQ 5,000 unit BID JEAN Administration Hydromorphone HCl 1 mg 02/19/17 14:34 02/21/17 21:32 Dilaudid Inj Syringe IVP 1 mg Q2HR PRN Administration PAIN Imipenem/Cilastatin Sodium 500 100 mls @ 200 mls/hr 02/18/17 20:00 02/22/17 13:43 mg/ Sodium Chloride IV Infused Q8H JEAN Infusion Gentamicin Sulfate 510 mg/ 112.75 mls @ 100 mls/hr 02/19/17 16:00 02/21/17 17 :37 Sodium Chloride IV Infused Q48H JEAN Infusion Dextrose 1,000 mls @ 30 mls/hr 02/20/17 21:36 02/22/17 14:15 D5w IV 30 mls/hr .[id number] JEAN Administration Lorazepam 0.5 mg 02/14/17 17:28 02/19/17 20:49 Ativan Inj IVP 0.5 mg Q2HR PRN Administration Anxiety Metoprolol Succinate 50 mg 02/20/17 13:00 02/22/17 10:40 Toprol Xl PO Not Given DAILY [facility] Mineral Oil 1 applic 02/17/17 15:01 02/21/17 20:38 Cavilon TOP 1 appful PRN PRN Administration Skin Care Mirtazapine 15 mg 02/14/17 21:00 02/21/17 20:22 Remeron PO 15 mg QPM JEAN Administration Multi-Ingredient Ointment 1 applic 02/19/17 18:00 02/22/17 11:53 Zinc Oxide TOP Not Given BID JEAN Multivitamins 1 tab 02/21/17 08:00 02/22/17 11:21 Theragran PO 1 tab DAILYWM JEAN Administration Pantoprazole Sodium 40 mg 02/21/17 07:00 02/22/17 07:04 Protonix PO Not Given QDAC JEAN Perphenazine 16 mg 02/20/17 12:00 02/22/17 11:53 Trilafon PO 16 mg BID JEAN Administration Potassium Chloride 10 meq 02/20/17 12:00 02/22/17 17:20 Micro-K PO 10 meq BIDWM JEAN Administration Quetiapine Fumarate 300 mg 02/14/17 21:00 02/21/17 20:20 Seroquel PO 300 mg QPM JEAN Administration Sodium Chloride 10 ml 02/14/17 06:00 02/22/17 14:21 Normal Saline Flush 0.9% IVP 20 ml Q8HR JEAN Administration Sodium Chloride 10 ml 02/14/17 03:27 02/22/17 04:50 Normal Saline Flush 0.9% IVP 30 ml PRN PRN Administration NEEDED PER PROVIDER ORDERS Tizanidine HCl 4 mg 02/16/17 12:00 02/22/17 11:21 Zanaflex PO 4 mg Q8H JEAN Administration - Lab Result Lab results reviewed: Yes Fish Bone Diagrams: 02/22/17 05:00 02/22/17 05:00 - Additional Planning Condition/Complexity: Improved (The patient is alert and oriented to person, place, and time. She is following directions.) My Orders: My Active Orders 02/22/17 19:20 Sucralfate [Carafate] 1 gm PO ONCE Time Spent: 31-60 minutes Subjective - Subjective Patient Reports: Feeling Better, No Complaints (The patient is much more alert. She is following directions. She is eating all of her meals. She is oriented to person, place, and time. She is participating in PT. Her vital signs have been stable.) Objective Vital Signs: Vital Signs - 24 hr 02/22/17 02/22/17 02/22/17 00:02 05:13 08:48 Temperature 36.8 C 36.4 C L 36.6 C Heart Rate Heart Rate [ Brachial] Heart Rate [ 59 L 65 54 L Radial] Respiratory 18 18 16 Rate Blood Pressure Blood Pressure 85/54 L [Left Brachial artery] Blood Pressure 99/50 L [Left Radial artery] Blood Pressure 109/64 119/59 L [Right Radial artery] O2 Saturation 95 93 94 02/22/17 02/22/17 02/22/17 16:18 18:16 18:28 Temperature 37.3 C Heart Rate 75 86 Heart Rate [ Brachial] Heart Rate [ 64 Radial] Respiratory 17 Rate Blood Pressure 130/64 107/60 Blood Pressure [Left Brachial artery] Blood Pressure 115/52 L [Left Radial artery] Blood Pressure [Right Radial artery] O2 Saturation 94 02/22/17 18:39 Temperature Heart Rate Heart Rate [ 82 Brachial] Heart Rate [ Radial] Respiratory Rate Blood Pressure Blood Pressure [Left Brachial artery] Blood Pressure [Left Radial artery] Blood Pressure 104/54 L [Right Radial artery] O2 Saturation Oxygen O2 Source Room air I&O (Last 24 Hrs): Intake and Output Totals x24h 02/20/17 02/21/17 02/22/17 23:59 23:59 23:59 Intake Total 3963.333 2389.25 1564.0 Output Total 4875 2350 1795 Balance -911.667 39.25 -231.0 General: Alert, Oriented x3, Cooperative, No acute distress HEENT: Atraumatic, PERRLA Neck: Supple, No JVD Neuro: Alert, CN 2-12 Grossly Intact, Oriented Times 3 Cardiovascular: Regular rate, Normal S1, Normal S2 Respiratory: Chest non-tender, No respiratory distress, Breath sounds nml Abdomen: Normal bowel sounds, Soft, No tenderness Extremities: No edema - Results Results: Laboratory Results WBC 9.4 x10^3/uL (4.8-10.8) 02/22/17 05:00 RBC 3.68 10^6/uL (4.20-5.40) L 02/22/17 05:00 Hgb 10.5 g/dL (12.0-16.0) L 02/22/17 05:00 Hct 30.6 % (37.0-47.0) L 02/22/17 05:00 MCV 83.2 fL (81.0-99.0) 02/22/17 05:00 MCH 28.6 pg (27.0-31.0) 02/22/17 05:00 MCHC 34.3 g/dL (32.0-36.0) 02/22/17 05:00 RDW 15.8 % (12.0-15.0) H 02/22/17 05:00 Plt Count 290 10^3/uL (130-450) 02/22/17 05:00 MPV 7.8 fL (7.9-10.8) L 02/22/17 05:00 Neut # 6.3 10^3/uL (1.5-6.6) 02/22/17 05:00 Lymph # 2.1 10^3/uL (1.5-3.5) 02/22/17 05:00 [place] # 0.6 10^3/uL (0.0-1.0) 02/22/17 05:00 Eos # 0.4 10^3/uL (0.0-0.7) 02/22/17 05:00 Baso # 0.0 10^3/uL (0.0-0.1) 02/22/17 05:00 Absolute Nucleated RBC 0.00 x10^3/uL 02/22/17 05:00 Total Counted 100 02/21/17 03:30 Band Neuts % (Manual) 9 % (0-10) 02/21/17 03:30 Reactive Lymphs % (Man) 7 % 02/20/17 10:00 Myelocytes % 1 % (-0) H 02/20/17 10:00 Nucleated RBC % 0.0 /100WBC 02/22/17 05:00 Neutrophils # (Manual) 6.4 10^3/uL (1.5-6.6) 02/21/17 03:30 Lymphocytes # (Manual) 1.8 10^3/uL (1.5-3.5) 02/21/17 03:30 Monocytes # (Manual) 0.6 10^3/uL (0.0-1.0) 02/21/17 03:30 Eosinophils # (Manual) 0.3 10^3/uL (0-0.7) 02/21/17 03:30 Basophils # (Manual) 0.1 10^3/uL (0-0.1) 02/20/17 10:00 Nucleated RBCs 1 % 02/14/17 01:43 Differential Comment MANUAL DIFFERENTIAL 02/21/17 03:30 Manual Slide Review Indicated 02/18/17 03:00 WBC Morphology 1+ TOXIC GRANULATION (NORMAL) 02/20/17 10:00 Platelet Estimate NORMAL (130-450,000) (NORMAL) 02/21/17 03:30 Platelet Morphology NORMAL APPEARANCE (NORMAL) 02/14/17 22:16 RBC Morph Micro Appear 1+ HYPOCHROMASIA (NORMAL) 1+ POLYCHROMASIA (NORMAL) 02/20/17 10:00 RBC Morph Micro Appear NORMAL APPEARANCE (NORMAL) 02/21/17 03:30 PT 12.8 secs (9.9-12.6) H 02/15/17 09:40 INR 1.1 (0.8-1.2) 02/15/17 09:40 VBG pH 7.427 (7.31-7.41) H 02/17/17 05:00 Ionized Calcium 1.15 mmol/L (1.15-1.33) 02/17/17 05:00 Sodium 135 mmol/L (135-145) 02/22/17 05:00 Potassium 3.8 mmol/L (3.5-5.0) 02/22/17 05:00 Chloride 106 mmol/L (101-111) 02/22/17 05:00 Carbon Dioxide 21 mmol/L (21-32) 02/22/17 05:00 Anion Gap 8.0 (6-13) 02/22/17 05:00 BUN 17 mg/dL (6-20) 02/22/17 05:00 Creatinine 1.4 mg/dL (0.4-1.0) H 02/22/17 05:00 Estimated GFR (MDRD) 37 (>89) L 02/22/17 05:00 Glucose 107 mg/dL (70-100) H 02/22/17 05:00 POC Whole Bld Glucose 156 mg/dL (70 - 100) H 02/22/17 18:05 Glycated Hemoglobin 6.4 % (4.6-6.2) H 02/14/17 01:14 Estim Average Glucose 137 (70-100) H 02/14/17 01:14 Lactic Acid 1.1 mmol/L (0.5-2.2) 02/14/17 22:16 Calcium 8.3 mg/dL (8.5-10.3) L 02/22/17 05:00 Phosphorus 1.9 mg/dL (2.5-4.6) L 02/17/17 05:00 Magnesium 2.0 mg/dL (1.7-2.8) 02/15/17 04:15 Total Bilirubin 0.5 mg/dL (0.2-1.0) 02/21/17 03:30 AST 17 IU/L (10-42) 02/21/17 03:30 ALT 14 IU/L (10-60) 02/21/17 03:30 Alkaline Phosphatase 32 IU/L (42-121) L 02/21/17 03:30 Total Protein 6.3 g/dL (6.7-8.2) L 02/21/17 03:30 Albumin 2.4 g/dL (3.2-5.5) L 02/21/17 03:30 Globulin 3.9 g/dL (2.1-4.2) 02/21/17 03:30 Albumin/Globulin Ratio 0.6 (1.0-2.2) L 02/21/17 03:30 Urine Color DARK YELLOW 02/14/17 01:18 Urine Clarity TURBID (CLEAR) 02/14/17 01:18 Urine pH 6.5 PH (5.0-7.5) 02/14/17 01:18 Ur Specific [place] 1.020 (1.002-1.030) 02/14/17 01:18 Urine Protein >=300 mg/dL (NEGATIVE) H 02/14/17 01:18 Urine Glucose (UA) NEGATIVE mg/dL (NEGATIVE) 02/14/17 01:18 Urine Ketones TRACE mg/dL (NEGATIVE) 02/14/17 01:18 Urine Occult Blood LARGE (NEGATIVE) H 02/14/17 01:18 Urine Nitrite POSITIVE (NEGATIVE) H 02/14/17 01:18 Urine Bilirubin NEGATIVE (NEGATIVE) 02/14/17 01:18 Urine Urobilinogen 0.2 (NORMAL) E.U./dL (NORMAL) 02/14/17 01:18 Ur Leukocyte Esterase LARGE (NEGATIVE) H 02/14/17 01:18 Urine RBC 6-10 /HPF (0-5) H 02/14/17 01:18 Urine WBC >25 /HPF (0-5) H 02/14/17 01:18 Ur Squamous Epith Cells NONE SEEN (<= Few) 02/14/17 01:18 Urine Bacteria None Seen /HPF (None Seen) 02/14/17 01:18 Ur Microscopic Review INDICATED 02/14/17 01:18 Urine Culture Comments INDICATED 02/14/17 01:18 Last Dose Date UNK 02/18/17 03:00 Last Dose Time UNK 02/18/17 03:00 Random Gentamicin 6.9 ug/mL 02/18/17 03:00 - Procedures Procedures: Procedures CONTINUOUS INVASIVE MECHANICAL VENTILATION <96 CONSEC HRS (09/29/13) INSERT ENDOTRACHEAL TUBE (09/29/13) INSERT GASTRIC TUBE NEC (09/29/13) INSERTION OF INFUSION DEV INTO SUP VENA CAVA, PERC APPROACH (05/20/15) REPLACE CYSTOSTOMY TUBE (06/12/14) RETROGRADE PYELOGRAM (06/12/14) TU BLADDER CLEARANCE (06/12/14) VENOUS CATHETERIZATION NEC (09/29/13)
[2017-02-22] MEDS: ATORVASTATIN 10 MG TABLET PO SCH (20:34)
[2017-02-22] MEDS: QUEtiapine 100 MG TABLET PO SCH (20:34)
[2017-02-22] MEDS: AMITRIPTYLINE 25 MG TABLET PO SCH (20:34)
[2017-02-22] MEDS: MIRTAZAPINE 15 MG TABLET PO SCH (20:35)
[2017-02-22] MEDS: CITALOPRAM 10 MG TABLET PO SCH (20:35)
[2017-02-22] MEDS: MIN OIL/DIMETHICON/COCONUT OIL 92 GM TUBE TOP PRN (20:36)
[2017-02-22] MEDS ORDERED: NITROGLYCERIN SL 0.4 MG TABLET SL PRN (21:50)
[2017-02-23] MEDS: MIN OIL/DIMETHICON/COCONUT OIL 92 GM TUBE TOP PRN ×2 (00:31→03:25)
[2017-02-23] MEDS: IMIPENEM/CILASTATIN 500 MG in SODIUM CHLORIDE 0.9% MINIBAG 100 ML IV SCH (03:20)
[2017-02-23] MEDS: tiZANidine 4 MG TABLET PO SCH ×2 (03:20→12:59)
[2017-02-23] MEDS: SODIUM CHLORIDE FLUSH 0.9% 10 ML SYRINGE IVP SCH ×2 (06:24→12:59)
[2017-02-23] MEDS: GABAPENTIN 300 MG CAPSULE PO SCH ×2 (07:06→12:59)
[2017-02-23] MEDS: PANTOPRAZOLE 40 MG TABLET PO SCH (07:07)
[2017-02-23] MEDS: HEPARIN 5,000 UNIT/ML VIAL SUBQ SCH (08:43)
[2017-02-23] MEDS: PERPHENAZINE 4 MG TABLET PO SCH (08:44)
[2017-02-23] MEDS: POTASSIUM CHLORIDE 10 MEQ CAPSULE PO SCH (08:44)
[2017-02-23] MEDS: ASPIRIN CHEW 81 MG TABLET PO SCH (08:44)
[2017-02-23] MEDS: DULoxetine 30 MG CAPSULE PO SCH (08:44)
[2017-02-23] MEDS: diltiaZEM CD 240 MG CAPSULE PO SCH (08:44)
[2017-02-23] MEDS: MULTIVITAMIN TABLET PO SCH (08:44)
[2017-02-23] MEDS: METOPROLOL SUCCINATE 50 MG TABLET PO SCH (08:45)
[2017-02-23] MEDS: CARBOXYMETHYLCELLULOSE OPHTH DROPS EACHEYE SCH (08:45)
[2017-02-23] MEDS: DOCUSATE SODIUM 250 MG CAPSULE PO SCH (08:45)
[2017-02-23] MEDS: guaiFENesin 600 MG TABLET PO SCH (08:45)
[2017-02-23] MEDS: ZINC OXIDE 20% TOP SCH (08:45)
[2017-02-23] MEDS ORDERED: CIPROFLOXACIN 400 MG/200 ML 200 ML IV SCH (09:00)
[2017-02-23] MEDS ORDERED: ACETAMINOPHEN 325 MG TABLET PO PRN (10:19)
--- NOTE | 2017-02-23 14:38 | Discharge Plan ---
Discharge Plan Disposition: 03 [facility] DC/Xfer Condition: Stable Prescriptions: Ciprofloxacin HCl [Cipro] 500 mg PO BID #14 tablet Diet: Diabetic Activity Restrictions: left above the knee amputation Shower Restrictions: No Driving Restrictions: Yes Assistance Devices: Wheelchair Weight Bearing: No Weight Additional Instructions or Follow Up instructions: The patient was admitted with sepsis. Cultures from the area of the suprapubic catheter site grew out Pseudomonas aeruginosa, Proteus miralbis, and enterococcue faecalis. She needs to follow-up with Dr. Joseluis Gipson this week. No Smoking: If you smoke, Please STOP! Call for help. Follow-up with: Joseluis Luong MD [Provider Admit Priv/Credential] - 1 Week
[2017-02-23 15:26] VITALS: BP 117/69
--- NOTE | 2017-02-23 16:47 | DISCHARGE SUMMARY ---
DATE OF ADMISSION: 02/14/2017 DATE OF DISCHARGE: 02/23/2017 DISCHARGE DIAGNOSES 1. Septic shock. 2. Acute sepsis. 3. Pyelonephritis. 4. Hypertension. COMORBIDITIES 1. Peripheral neuropathy. 2. Diabetes mellitus. 3. Schizophrenia. 4. Acute on chronic renal injury. 5. Chronic renal disease. DISPOSITION: She will be transferred to [facility]. FOLLOWUP: She will follow up with Dr. Joseluis Luong this coming week. DISCHARGE MEDICATIONS: She will get a prescription for Cipro 500 mg 1 tab p.o. twice a day for 7 days, #14. HOSPITAL COURSE: The patient is a 71-year-old white female, who was admitted with septic shock. She was placed in the ICU, where she received IV Cipro that was switched to IV imipenem, IV vancomycin, IV Levophed, and IV 0.9 normal saline. Her schizophrenia is being treated with Remeron and Seroquel. The acute- on-chronic renal failure was treated with IV hydration and improved. The peripheral neuropathy was treated with Cymbalta, Neurontin, and Tylenol. The essential hypertension was treated with metoprolol tartrate. The anxiety was treated with lorazepam. Her pain was treated with Dilaudid. Her hyponatremia resolved with potassium chloride. She grew Pseudomonas aeruginosa, Proteus mirabilis, and Enterococcus from her catheter site wound. She had a central line that was D/C today. She improved and was discharged. PHYSICAL EXAMINATION ON DISCHARGE VITAL SIGNS: Temperature of 36.6, pulse of 70, respiratory rate of 20, blood pressure of 134/68, and oxygen saturation of 96% on room air. HEENT: Her head is atraumatic, normocephalic. Her eyes are PERRLA. EOMI. NECK: Supple. No JVD. No bruits. No thyroid enlargement. HEART: RRR. LUNGS: Clear to auscultation. ABDOMEN: Positive for bowel sounds. Soft and nontender. No rebound. No guarding. EXTREMITIES: She has a left [id number] amputation. Her right leg is warm. No edema; +2 pedal pulses. NEUROLOGIC: She is oriented x3, follows commands, and moves all 4 extremities. LABORATORY DATA ON DISCHARGE: White blood cell count of 9.4, hemoglobin of 10.5 , hematocrit of 30.6; platelets of 290,000. Her sodium is 135. Her potassium is 3.8. Her chloride is 106. Her bicarbonate is 21. Her BUN is 17. Her creatinine is 1.4. Her glucose is 107. Her calcium is 8.3. Her alkaline phosphatase is 32. Her albumin is 2.4. Her EKG was and is a normal sinus rhythm. JOB #: [id number] EXT JOB #:[id number] [facility] HOSPITALIsaiah
== END 2017-02-23 16:50 | DRG 698 ==
LOC: EDUNIT# → ED 00:50 → ICU 03:27 → MS2 02-17 14:54
PROC: 02HV33Z Insertion of Infusion Device into Superior Vena Cava, Percutaneous Approach (ICD-10-PCS; principal; 2017-02-14)
DX: A41.9 Sepsis, unspecified organism (principal); I95.9 Hypotension, unspecified; I10 Essential (primary) hypertension; E11.9 Type 2 diabetes mellitus without complications; T83.510A Infection and inflammatory reaction due to cystostomy catheter, initial encounter; R65.21 Severe sepsis with septic shock; A41.52 Sepsis due to Pseudomonas; Z93.50 Unspecified cystostomy status; A41.89 Other specified sepsis; N12 Tubulo-interstitial nephritis, not specified as acute or chronic; N17.9 Acute kidney failure, unspecified; E87.1 Hypo-osmolality and hyponatremia; F05 Delirium due to known physiological condition; E87.6 Hypokalemia; Y92.129 Unspecified place in nursing home as the place of occurrence of the external cause; Y84.6 Urinary catheterization as the cause of abnormal reaction of the patient, or of later complication, without mention of misadventure at the time of the procedure; B95.2 Enterococcus as the cause of diseases classified elsewhere; E11.42 Type 2 diabetes mellitus with diabetic polyneuropathy; F20.9 Schizophrenia, unspecified; I12.9 Hypertensive chronic kidney disease with stage 1 through stage 4 chronic kidney disease, or unspecified chronic kidney disease; E11.22 Type 2 diabetes mellitus with diabetic chronic kidney disease; G47.00 Insomnia, unspecified; G89.29 Other chronic pain; M54.9 Dorsalgia, unspecified; E78.5 Hyperlipidemia, unspecified; K21.9 Gastro-esophageal reflux disease without esophagitis; F41.1 Generalized anxiety disorder; R06.03 Acute respiratory distress; N18.3 Chronic kidney disease, stage 3 (moderate); F03.90 Unspecified dementia, unspecified severity, without behavioral disturbance, psychotic disturbance, mood disturbance, and anxiety; Z16.23 Resistance to quinolones and fluoroquinolones; Z16.29 Resistance to other single specified antibiotic; Z89.612 Acquired absence of left leg above knee; Z79.82 Long term (current) use of aspirin; Z79.4 Long term (current) use of insulin; Z78.1 Physical restraint status; Z22.322 Carrier or suspected carrier of Methicillin resistant Staphylococcus aureus; Z88.1 Allergy status to other antibiotic agents; Z88.0 Allergy status to penicillin
CPT/HCPCS: 36415; 36556; 71010; 80048; 80053; 80170; 80307; 81001; 81003; 82270; 82330; 83036; 83605; 83735; 84100; 85025; 85610; 87040; 87070; 87077; 87086; 87150; 87205; 87493; 93005; 94640; 96361; 96365; 96368; 99285; J1170

== ENCOUNTER 2017-02-27 08:00 | Outpatient (CLI) | payer MEDICARE, MEDICAID ==
[2017-02-27 22:00] LABS: BASOPHILS # (AUTO) 0.1 10^3/uL (0.0-0.1); BASOPHILS % (AUTO) 0.8 %; EOSINOPHILS # (AUTO) 0.4 10^3/uL (0.0-0.7); EOSINOPHILS % (AUTO) 6.1 %; HCT - HEMATOCRIT 30.8 % (37.0-47.0); HGB - HEMOGLOBIN 9.9 g/dL (12.0-16.0); LYMPHOCYTES # (AUTO) 1.4 10^3/uL (1.5-3.5); LYMPHOCYTES % (AUTO) 20.6 %; MEAN CORPUSCULAR HEMOGLOBIN 27.1 pg (27.0-31.0); MEAN CORPUSCULAR VOLUME 84.7 fL (81.0-99.0); MONOCYTES # (AUTO) 0.7 10^3/uL (0.0-1.0); MONOCYTES % (AUTO) 9.6 %; NEUTROPHILS # (AUTO) 4.4 10^3/uL (1.5-6.6); NEUTROPHILS % (AUTO) 62.9 %; NUCLEATED RED BLOOD CELLS AUTO 0.1 /100WBC; RED BLOOD COUNT 3.64 10^6/uL (4.20-5.40); RED CELL DISTRIBUTION WIDTH 16.2 % (12.0-15.0)
[2017-02-27 22:08] LABS: ALBUMIN/GLOBULIN RATIO 0.7 (1.0-2.2); CALCIUM 8.5 mg/dL (8.5-10.3); POTASSIUM 5.5 mmol/L (3.5-5.0); TOTAL PROTEIN 6.4 g/dL (6.7-8.2)
== END 2017-02-27 08:01 | disposition home or self-care (01) ==
LOC: LAB.R 08:00
DX: I10 Essential (primary) hypertension (principal); A41.9 Sepsis, unspecified organism
CPT/HCPCS: 80053; 85025

== ENCOUNTER 2017-02-28 16:06 | Outpatient (CLI) | payer MEDICARE, MEDICAID | END 2017-02-28 16:07 | disposition critical access hospital (66) | LOC: EMS 16:06 | PROVIDERS: ATTEND Surgery | DX: R53.1 Weakness (principal); R41.0 Disorientation, unspecified; R68.89 Other general symptoms and signs | CPT/HCPCS: A0425; A0429 ==

== ENCOUNTER 2017-04-15 00:50 | Outpatient (CLI) | payer MEDICARE, MEDICAID ==
[2017-04-15 16:47] LABS: CHOLESTEROL 246 mg/dL; HDL CHOLESTEROL 62 mg/dL; LDL/HDL RATIO 2.5 (<4.4); TRIGLYCERIDES 153 mg/dL; VLDL CHOLESTEROL 31 mg/dL
[2017-04-15 16:57] LABS: THYROID STIMULATING HORMONE 5.56 uIU/mL (0.34-5.60)
== END 2017-04-15 00:51 | disposition home or self-care (01) ==
LOC: LAB.R 00:50
DX: E03.9 Hypothyroidism, unspecified (principal); E78.5 Hyperlipidemia, unspecified
CPT/HCPCS: 80061; 84439; 84443

== ENCOUNTER 2017-04-25 18:32 | Outpatient (CLI) | payer MEDICARE, MEDICAID | END 2017-04-25 18:33 | disposition critical access hospital (66) | LOC: EMS 18:32 | PROVIDERS: ATTEND Surgery | DX: R06.00 Dyspnea, unspecified (principal) | CPT/HCPCS: A0425; A0427 ==

== ENCOUNTER 2017-04-25 18:36 | Emergency (ER) | payer MEDICARE, MEDICAID ==
[2017-04-25] MEDS ORDERED: SODIUM CHLORIDE 0.9% 1,000 ML IV ONE ×2 (18:43→20:47)
[2017-04-25 19:14] LABS: BASOPHILS % (AUTO) 0.4 %; EOSINOPHILS % (AUTO) 12.2 %; HCT - HEMATOCRIT 30.6 % (37.0-47.0); HGB - HEMOGLOBIN 9.9 g/dL (12.0-16.0); LYMPHOCYTES # (AUTO) 2.9 10^3/uL (1.5-3.5); LYMPHOCYTES % (AUTO) 34.5 %; MEAN CORPUSCULAR HEMOGLOBIN 27.8 pg (27.0-31.0); MEAN CORPUSCULAR HGB CONC 32.5 g/dL (32.0-36.0); MEAN CORPUSCULAR VOLUME 85.5 fL (81.0-99.0); MEAN PLATELET VOLUME 7.7 fL (7.9-10.8); MONOCYTES # (AUTO) 0.8 10^3/uL (0.0-1.0); MONOCYTES % (AUTO) 9.3 %; NEUTROPHILS # (AUTO) 3.6 10^3/uL (1.5-6.6); NEUTROPHILS % (AUTO) 43.6 %; RED BLOOD COUNT 3.57 10^6/uL (4.20-5.40); RED CELL DISTRIBUTION WIDTH 14.3 % (12.0-15.0); UNCORRECTED WHITE BLOOD COUNT 8.3 x10^3/uL; WHITE BLOOD COUNT 8.3 x10^3/uL (4.8-10.8)
[2017-04-25 19:25] LABS: ALBUMIN/GLOBULIN RATIO 0.9 (1.0-2.2); BILIRUBIN,TOTAL 0.4 mg/dL (0.2-1.0); CALCIUM 9.1 mg/dL (8.5-10.3); POTASSIUM 3.6 mmol/L (3.5-5.0); TOTAL PROTEIN 7.1 g/dL (6.7-8.2)
--- NOTE | 2017-04-25 19:27 | XRAY Preliminary Report ---
Exam: XR CHEST 1 VIEW IMPRESSION: Clear hypoinflated lungs. RADI SITE ID: [id number]
--- NOTE | 2017-04-25 19:29 | XRAY Report ---
EXAM: CHEST RADIOGRAPHY EXAM DATE: 04/25/2017 07:01 PM. CLINICAL HISTORY: Cough. Altered level of consciousness. COMPARISON: 05/20/2015. TECHNIQUE: 1 view. FINDINGS: Lungs/Pleura: Hypoinflated lungs. No focal opacities evident. No pleural effusion. No pneumothorax. Mediastinum: Within exam limitations, the cardiomediastinal contour is normal. Other: Stable degenerative changes of both shoulders.. IMPRESSION: Clear hypoinflated lungs. RADIA Referring Provider Line: [phone] SITE ID: [id number]
--- NOTE | 2017-04-25 20:27 | ED Physician Documentation ---
History of Present Illness - Stated complaint Stated Complaint: CONFUSED - Chief complaint Chief Complaint: Resp - History obtained from History obtained from: Patient, EMS - History of Present Illness Timing: Today Pain level max: 0 Pain level now: 0 Improved by: nebulizer Worsened by: nothing - Additonal information Additional information: Patient is a 72-year-old female who lives at [facility]. Staff states that she was more confused than usual today. They were concerned that she has been coughing for the past several days as well. No fevers. She had urosepsis a few months ago. She is schizophrenic. She does not use home O2. she is also schizophrenic. Has a chronic indwelling flores. Review of Systems Ten Systems: 10 systems reviewed and negative Constitutional: denies: Fever, Chills Ears: denies: Ear pain Nose: denies: Rhinorrhea / runny nose, Congestion Throat: denies: Sore throat Cardiac: denies: Chest pain / pressure Respiratory: reports: Cough, Wheezing GI: denies: Abdominal Pain, Nausea, Vomiting, Diarrhea Skin: denies: Rash Musculoskeletal: denies: Neck pain, Back pain Neurologic: denies: Headache PD PAST MEDICAL HISTORY - Past Medical History Cardiovascular: Hypertension, High cholesterol Respiratory: Pneumonia Neuro: None, Head injury Endocrine/Autoimmune: Type 2 diabetes GI: GERD : Chronic bladder infection, Other HEENT: None Psych: Depression, Anxiety Musculoskeletal: Chronic back pain Derm: Other - Past Surgical History Past Surgical History: Yes General: Appendectomy, Colonoscopy, EGD Ortho: Spine surgery, Amputation, 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 - Present Medications Home Medications: Ambulatory Orders Medication Instructions Recorded Confirmed Aspirin Chewable [St Flavio 81 mg PO DAILY 09/29/13 04/25/17 Aspirin] Citalopram [CeleXA] 20 mg PO QPM 09/29/13 04/25/17 Docusate Sodium 500 mg PO BID 09/29/13 04/25/17 Omeprazole [PriLOSEC] 20 mg PO DAILY 09/29/13 04/25/17 diltiaZEM CD [Cardizem Cd] 240 mg PO BID 09/29/13 04/25/17 Multivitamin [Multivitamins] 1 each PO DAILY 06/06/14 04/25/17 Potassium Chloride 20 meq PO DAILY 06/06/14 04/25/17 Albuterol 2.5 mg INH Q4H PRN 02/14/17 04/25/17 Gabapentin [Neurontin] 900 mg PO TID 02/14/17 04/25/17 Losartan [Cozaar] 100 mg PO DAILY 02/14/17 04/25/17 QUEtiapine [SEROquel] 300 mg PO QPM 02/14/17 04/25/17 Senna [Senokot] 17.2 mg PO DAILY 02/14/17 04/25/17 diphenhydrAMINE [Benadryl] 25 mg PO BID PRN 02/14/17 04/25/17 tiZANidine [Zanaflex] 4 mg PO Q8H 02/14/17 04/25/17 DULoxetine [Cymbalta] 30 mg PO DAILY 02/19/17 04/25/17 Gentamicin in NaCl, Iso-Osm 500 mg IV ONCE #100 ml 03/03/17 04/25/17 [Gentamicin 100 mg/Ns 100 ml] Meropenem [Merrem] 1 gm IV Q8H 4 Days #12 vial 03/03/17 04/25/17 Nystatin Cream [Mycostatin Cream] 1 applic TOP BID tube 03/03/17 04/25/17 oxyCODONE/ACET 5/325 [Percocet 5 2 each PO DAILY #30 tablet 03/03/17 04/25/17 mg/325 mg] Furosemide [Lasix] 1 tab PO BID 04/25/17 04/25/17 Nitrofurantoin Monohyd/M-Cryst 100 mg PO BID #14 capsule 04/25/17 [Macrobid 100 mg Capsule] - Allergies Allergies/Adverse Reactions: Allergies Allergy/AdvReac Type Severity Reaction Status Date / Time erythromycin base Allergy Severe Anaphylaxis Verified 04/25/17 21:04 [Erythromycin Base] Penicillins Allergy Severe Anaphylaxis Verified 04/25/17 21:04 Sulfa (Sulfonamide Allergy Severe Redness/High Verified 04/25/17 21:04 Antibiotics) fever lisinopril Allergy Unknown Unknown Verified 04/25/17 21:04 ceftriaxone Allergy Rash Verified 04/25/17 21:04 quinidine Allergy Rash Verified 04/25/17 21:04 - Social History Does the pt smoke?: No Smoking Status: Never smoker Does the pt drink ETOH?: No Does the pt have substance abuse?: No - Immunizations Immunizations are current?: No Immunizations: TDAP >10years/unknown - POLST Patient has POLST: No POLST Status: Full Code PD ED PE NORMAL - Vitals Vital signs reviewed: Yes - General General: Alert and oriented X 3, No acute distress, Well developed/nourished - HEENT HEENT: PERRL, Moist mucous membranes - Neck Neck: Supple, no meningeal sign - Cardiac Cardiac: RRR - Respiratory Respiratory: No respiratory distress, Other (wheezing B) - Abdomen Abdomen: Soft, Non tender, Non distended - Derm Derm: Warm and dry - Extremities Extremities: No edema, No calf tenderness / cord - Neuro Neuro: Alert and oriented X 3 Results - Vitals Vitals: Vital Signs - 24 hr 04/25/17 04/25/17 04/25/17 18:36 19:42 21:02 Temperature 36.7 C Heart Rate 62 74 79 Respiratory 14 20 18 Rate Blood Pressure 97/54 L 101/62 O2 Saturation 100 93 99 Oxygen O2 Source Room air Oxygen Flow Rate 2 - Labs Labs: Laboratory Tests 04/25/17 04/25/17 04/25/17 19:00 19:00 19:00 WBC 8.3 RBC 3.57 L Hgb 9.9 L Hct 30.6 L MCV 85.5 MCH 27.8 MCHC 32.5 RDW 14.3 Plt Count 269 MPV 7.7 L Neut # 3.6 Lymph # 2.9 [place] # 0.8 Eos # 1.0 H Baso # 0.0 Absolute Nucleated RBC 0.00 Nucleated RBC % 0.0 Sodium 134 L Potassium 3.6 Chloride 94 L Carbon Dioxide 29 Anion Gap 11.0 BUN 38 H Creatinine 2.0 H Estimated GFR (MDRD) 24 L Glucose 127 H Lactic Acid 1.1 Calcium 9.1 Total Bilirubin 0.4 AST 19 ALT 11 Alkaline Phosphatase 48 Total Protein 7.1 Albumin 3.3 Globulin 3.8 Albumin/Globulin Ratio 0.9 L Lipase 28 Urine Color Urine Clarity Urine pH Ur Specific [place] Urine Protein Urine Glucose (UA) Urine Ketones Urine Occult Blood Urine Nitrite Urine Bilirubin Urine Urobilinogen Ur Leukocyte Esterase Urine RBC Urine WBC Ur Squamous Epith Cells Amorphous Sediment Urine Bacteria Urine Mucus Urine Yeast Ur Microscopic Review Urine Culture Comments 04/25/17 20:56 WBC RBC Hgb Hct MCV MCH MCHC RDW Plt Count MPV Neut # Lymph # [place] # Eos # Baso # Absolute Nucleated RBC Nucleated RBC % Sodium Potassium Chloride Carbon Dioxide Anion Gap BUN Creatinine Estimated GFR (MDRD) Glucose Lactic Acid Calcium Total Bilirubin AST ALT Alkaline Phosphatase Total Protein Albumin Globulin Albumin/Globulin Ratio Lipase Urine Color YELLOW Urine Clarity CLOUDY Urine pH 6.0 Ur Specific [place] 1.010 Urine Protein NEGATIVE Urine Glucose (UA) NEGATIVE Urine Ketones NEGATIVE Urine Occult Blood LARGE H Urine Nitrite POSITIVE H Urine Bilirubin NEGATIVE Urine Urobilinogen 0.2 (NORMAL) Ur Leukocyte Esterase MODERATE H Urine RBC TNTC H Urine WBC >25 H Ur Squamous Epith Cells FEW Squamous Amorphous Sediment Moderate Urine Bacteria Many H Urine Mucus Few Strands Urine Yeast PRESENT Ur Microscopic Review INDICATED Urine Culture Comments INDICATED - Rads (name of study) cxr Radiology: Prelim report reviewed, EMP read contemporaneously, See rad report ( Clear hypoinflated lungs. ) PD MEDICAL DECISION MAKING - ED course Complexity details: reviewed old records, reviewed results, re-evaluated patient , considered differential, d/w patient ED course: Patient is a 72-year-old female who presents to the emergency department with apparent altered mental status at [facility] today. She has a UTI here. Based on her past history, they have been sensitive to Macrobid, therefore will place her on Macrobid. She is afebrile. No pneumonia on chest x -ray. Is not requiring supplemental O2. Refuses nebulizer treatment. She does not appear to be hallucinating. She is schizophrenic. Unknown what her normal baseline is, but does not appear to be a danger to herself or others. We will place her on antibiotics and send her back to [facility] at this time. Normal white blood cell count. Normal lactate. No sepsis. Patient counseled regarding signs and symptoms for which I believe and urgent re -evaluation would be necessary. Patient with good understanding of and agreement to plan and is comfortable going home at this time This document was made in part using voice recognition software. While efforts are made to proofread this document, sound alike and grammatical errors may occur. Departure - Departure Disposition: 01 Home, Self Care Clinical Impression: UTI (urinary tract infection) Qualifiers: Urinary tract infection type: acute cystitis Hematuria presence: without hematuria Qualified Code(s): N30.00 - Acute cystitis without hematuria Condition: Good Instructions: ED UTI Cystitis Female Follow-Up: Joseluis Luong MD [Primary Care Provider] - Within 3 Days Prescriptions: Nitrofurantoin Monohyd/M-Cryst [Macrobid 100 mg Capsule] 100 mg PO BID #14 capsule Comments: Cherie appears to have a UTI tonight. We started her on antibiotics, please continue the antibiotics tomorrow. If she worsens, develops fever or worsening symptoms, return for further evaluation. Otherwise follow-up with her doctor closely.
[2017-04-25] MEDS: DEXAMETHASONE 10 MG/ML VIAL IVP STA ×2 (20:34→20:42)
[2017-04-25] MEDS: IPRATROPIUM/ALBUTEROL 3 ML NEB INH STA ×2 (20:34→20:42)
[2017-04-25 21:14] LABS: BILIRUBIN,URINE NEGATIVE (NEGATIVE)
[2017-04-25 21:18] LABS: UA w/ MICROSCOPIC CHARGE YES
[2017-04-25] MEDS ORDERED: NITROFURANTOIN MACRO 100 MG CAPSULE PO STA (21:19)
[2017-04-25 21:32] LABS: UR CULTURE IF IND INDICATED; WBC,URINE >25 /HPF (0-5)
[2017-04-26] MEDS ORDERED: NITROFURANTOIN MACRO 100 MG CAPSULE PO STA (10:50)
[2017-04-26] MEDS ORDERED: PHYTONADIONE 10 MG/ML AMP IVP STA (10:54)
[2017-04-26 10:59] VITALS: BP 165/85
== END 2017-04-26 10:57 | disposition home or self-care (01) ==
LOC: EDUNIT# → ED 18:36
DX: N30.00 Acute cystitis without hematuria (principal); R06.2 Wheezing; F20.9 Schizophrenia, unspecified; T83.518D Infection and inflammatory reaction due to other urinary catheter, subsequent encounter; E78.00 Pure hypercholesterolemia, unspecified; E11.9 Type 2 diabetes mellitus without complications; I10 Essential (primary) hypertension; Z79.82 Long term (current) use of aspirin; Z88.1 Allergy status to other antibiotic agents; Z88.0 Allergy status to penicillin; Z88.2 Allergy status to sulfonamides
CPT/HCPCS: 36415; 71010; 80048; 80053; 81001; 83605; 83690; 85025; 87086; 96372; 99283; 99284; 99285; A9270; J1335; 81003

== ENCOUNTER 2017-04-26 21:06 | Outpatient (CLI) | payer MEDICARE, MEDICAID | END 2017-04-26 21:07 | disposition critical access hospital (66) | LOC: EMS 21:06 | PROVIDERS: ATTEND Surgery | DX: R41.82 Altered mental status, unspecified (principal) | CPT/HCPCS: A0425; A0429 ==

== ENCOUNTER 2017-04-26 21:12 | Emergency (ER) | payer MEDICARE, MEDICAID ==
--- NOTE | 2017-04-26 21:18 | ED Physician Documentation ---
PD HPI FEMALE - Stated complaint Stated Complaint: FEMALE - History obtained from History obtained from: Patient, EMS - History of Present Illness Timing - onset: Other (72-year-old woman with schizophrenia and long-standing suprapubic catheter because "my bladder gave up." She was seen here last night and diagnosed with UTI, started on Macrobid. Her lab work at that time was otherwise unremarkable. She was sent back tonight because she had been reportedly having some hallucinations although the patient denies this. It was reported the last time she had hallucinations it was because she was uroseptic. There is no report of fever. Initial culture from last night is growing polymicrobial red.) Review of Systems Constitutional: denies: Fever, Chills Cardiac: denies: Chest pain / pressure, Palpitations Respiratory: denies: Dyspnea, Cough GI: denies: Abdominal Pain, Nausea, Vomiting PD PAST MEDICAL HISTORY - Past Medical History Cardiovascular: Hypertension, High cholesterol Respiratory: Pneumonia Neuro: None, Head injury Endocrine/Autoimmune: Type 2 diabetes GI: GERD : Chronic bladder infection, Other HEENT: None Psych: Depression, Anxiety Musculoskeletal: Chronic back pain Derm: Other - Past Surgical History Past Surgical History: Yes General: Appendectomy, Colonoscopy, EGD Ortho: Spine surgery, Amputation, 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 - Present Medications Home Medications: Ambulatory Orders Medication Instructions Recorded Confirmed Aspirin Chewable [St Flavio 81 mg PO DAILY 09/29/13 04/26/17 Aspirin] Citalopram [CeleXA] 20 mg PO QPM 09/29/13 04/26/17 Docusate Sodium 500 mg PO BID 09/29/13 04/26/17 Omeprazole [PriLOSEC] 20 mg PO DAILY 09/29/13 04/26/17 diltiaZEM CD [Cardizem Cd] 240 mg PO BID 09/29/13 04/26/17 Multivitamin [Multivitamins] 1 each PO DAILY 06/06/14 04/26/17 Potassium Chloride 20 meq PO DAILY 06/06/14 04/26/17 Albuterol 2.5 mg INH Q4H PRN 02/14/17 04/26/17 Gabapentin [Neurontin] 900 mg PO TID 02/14/17 04/26/17 Losartan [Cozaar] 100 mg PO DAILY 02/14/17 04/26/17 QUEtiapine [SEROquel] 300 mg PO QPM 02/14/17 04/26/17 Senna [Senokot] 17.2 mg PO DAILY 02/14/17 04/26/17 diphenhydrAMINE [Benadryl] 25 mg PO BID PRN 02/14/17 04/26/17 tiZANidine [Zanaflex] 4 mg PO Q8H 02/14/17 04/26/17 DULoxetine [Cymbalta] 30 mg PO DAILY 02/19/17 04/26/17 Gentamicin in NaCl, Iso-Osm 500 mg IV ONCE #100 ml 03/03/17 04/26/17 [Gentamicin 100 mg/Ns 100 ml] Meropenem [Merrem] 1 gm IV Q8H 4 Days #12 vial 03/03/17 04/26/17 Nystatin Cream [Mycostatin Cream] 1 applic TOP BID tube 03/03/17 04/26/17 oxyCODONE/ACET 5/325 [Percocet 5 2 each PO DAILY #30 tablet 03/03/17 04/26/17 mg/325 mg] Furosemide [Lasix] 1 tab PO BID 04/25/17 04/26/17 Nitrofurantoin Monohyd/M-Cryst 100 mg PO BID #14 capsule 04/25/17 04/26/17 [Macrobid 100 mg Capsule] - Allergies Allergies/Adverse Reactions: Allergies Allergy/AdvReac Type Severity Reaction Status Date / Time erythromycin base Allergy Severe Anaphylaxis Verified 04/26/17 21:20 [Erythromycin Base] Penicillins Allergy Severe Anaphylaxis Verified 04/26/17 21:20 Sulfa (Sulfonamide Allergy Severe Redness/High Verified 04/26/17 21:20 Antibiotics) fever lisinopril Allergy Unknown Unknown Verified 04/26/17 21:20 ceftriaxone Allergy Rash Verified 04/26/17 21:20 quinidine Allergy Rash Verified 04/26/17 21:20 - Social History Does the pt smoke?: No Smoking Status: Never smoker Does the pt drink ETOH?: No Does the pt have substance abuse?: No - Immunizations Immunizations are current?: No Immunizations: TDAP >10years/unknown - POLST Patient has POLST: No POLST Status: Full Code PD ED PE NORMAL - Vitals Vital signs reviewed: Yes - General General: No acute distress, Other (She is alert and cooperative and pleasant) - HEENT HEENT: PERRL, EOMI - Neck Neck: Supple, no meningeal sign, No bony TTP - Cardiac Cardiac: RRR, No murmur - Respiratory Respiratory: No respiratory distress, Clear bilaterally - Abdomen Abdomen: Normal bowel sounds, Soft, Non tender - Female Female : Other (Urine in the bag has some small purulent chunks in it but not opaque) - Neuro Neuro: No motor deficit, No sensory deficit Eye Opening: Spontaneous Motor: Obeys Commands Verbal: Confused GCS Score: 14 - Psych Psych: Normal mood, Normal affect Results - Vitals Vitals: Vital Signs - 24 hr 04/26/17 21:15 Temperature 36.6 C Heart Rate 93 Respiratory 18 Rate Blood Pressure 122/65 O2 Saturation 95 Oxygen O2 Source Room air - Labs Labs: Laboratory Tests 04/26/17 04/26/17 04/26/17 21:28 21:28 21:28 WBC 8.1 RBC 3.85 L Hgb 10.8 L Hct 32.6 L MCV 84.8 MCH 28.1 MCHC 33.2 RDW 14.5 Plt Count 289 MPV 7.5 L Neut # 4.9 Lymph # 1.9 [place] # 0.8 Eos # 0.5 Baso # 0.1 Absolute Nucleated RBC 0.00 Nucleated RBC % 0.0 Sodium 135 Potassium 3.3 L Chloride 98 L Carbon Dioxide 27 Anion Gap 10.0 BUN 26 H Creatinine 1.2 H Estimated GFR (MDRD) 44 L Glucose 137 H Lactic Acid 1.0 Calcium 9.7 PD MEDICAL DECISION MAKING - ED course ED course: 72-year-old very cooperative Woman with history of schizophrenia presents with hallucinations in the setting of a UTI. There is still no evidence of sepsis. Antibiotic choice was reviewed including her culture from last night was is which is initially showing polymicrobial red. Previous cultures reviewed as well as her allergies and potential drug interactions. All of this makes antibiotic choice hard. I would like her to have something with more renal penetration and broad-spectrum activity then Macrobid, however given her penicillin allergy, Rocephin allergy, and multiple drugs that give her long QT ( making fluoroquinolones dangerous) her antibiotic choices are limited. Previous episodes of UTI were treated with ertapenem and we gave her a dose here and I spoke with Angelia Finn second mate for Dr. Luong and they will arrange for her to have ertapenem 1 g daily in the halfway for 10 days. Departure - Departure Disposition: 01 Home, Self Care Clinical Impression: Urinary tract infection Qualifiers: Urinary tract infection type: catheter-associated UTI Indwelling urinary catheter type: cystostomy catheter Encounter type: subsequent encounter Qualified Code(s): T83.510D - Infection and inflammatory reaction due to cystostomy catheter, subsequent encounter; N39.0 - Urinary tract infection, site not specified; N39.0 - Urinary tract infection, site not specified Schizophrenia Qualifiers: Schizophrenia type: unspecified Qualified Code(s): F20.9 - Schizophrenia, unspecified Condition: Good Record reviewed to determine appropriate education?: Yes Comments: I want her to have a different antibiotic. Given her allergies her antibiotic choices are limited. I spoke with Angelia Finn second mate for Dr. Luong and we agreed that she will have ertapenem 1 g IM daily. She was given a first dose here. Dr. Luong should write orders for further dosing for a total of 10 days tomorrow. Her blood work and vital signs Rule out sepsis at this juncture.
[2017-04-26 21:34] LABS: BASOPHILS # (AUTO) 0.1 10^3/uL (0.0-0.1); BASOPHILS % (AUTO) 0.8 %; EOSINOPHILS # (AUTO) 0.5 10^3/uL (0.0-0.7); EOSINOPHILS % (AUTO) 5.8 %; HCT - HEMATOCRIT 32.6 % (37.0-47.0); HGB - HEMOGLOBIN 10.8 g/dL (12.0-16.0); LYMPHOCYTES # (AUTO) 1.9 10^3/uL (1.5-3.5); LYMPHOCYTES % (AUTO) 23.7 %; MEAN CORPUSCULAR HEMOGLOBIN 28.1 pg (27.0-31.0); MEAN CORPUSCULAR HGB CONC 33.2 g/dL (32.0-36.0); MEAN CORPUSCULAR VOLUME 84.8 fL (81.0-99.0); MEAN PLATELET VOLUME 7.5 fL (7.9-10.8); MONOCYTES # (AUTO) 0.8 10^3/uL (0.0-1.0); MONOCYTES % (AUTO) 9.4 %; NEUTROPHILS # (AUTO) 4.9 10^3/uL (1.5-6.6); NEUTROPHILS % (AUTO) 60.3 %; RED BLOOD COUNT 3.85 10^6/uL (4.20-5.40); RED CELL DISTRIBUTION WIDTH 14.5 % (12.0-15.0); UNCORRECTED WHITE BLOOD COUNT 8.1 x10^3/uL; WHITE BLOOD COUNT 8.1 x10^3/uL (4.8-10.8)
[2017-04-26 21:41] LABS: CALCIUM 9.7 mg/dL (8.5-10.3); CREATININE 1.2 mg/dL (0.4-1.0); POTASSIUM 3.3 mmol/L (3.5-5.0)
[2017-04-26] MEDS ORDERED: ERTAPENEM 1 GM VIAL IM STA (22:20)
[2017-04-26] MEDS ORDERED: LIDOCAINE 1% 2 ML VIAL ONE (22:43)
[2017-04-26 23:02] VITALS: BP 117/79
== END 2017-04-26 23:43 | disposition home or self-care (01) ==
LOC: EDUNIT# → ED 21:12
DX: T83.518D Infection and inflammatory reaction due to other urinary catheter, subsequent encounter (principal); N39.0 Urinary tract infection, site not specified; F20.9 Schizophrenia, unspecified; I10 Essential (primary) hypertension; E11.9 Type 2 diabetes mellitus without complications; E78.00 Pure hypercholesterolemia, unspecified; Z79.82 Long term (current) use of aspirin; Z88.1 Allergy status to other antibiotic agents; Z88.0 Allergy status to penicillin; Z88.2 Allergy status to sulfonamides
CPT/HCPCS: 36415; 80048; 83605; 85025; 87086; 96372; 99283; 99284

== ENCOUNTER 2017-05-04 08:00 | Outpatient (CLI) | payer MEDICARE, MEDICAID | END 2017-05-04 08:01 | disposition home or self-care (01) | LOC: LAB.R 08:00 | DX: A08.11 Acute gastroenteropathy due to Norwalk agent (principal); A04.71 Enterocolitis due to Clostridium difficile, recurrent | CPT/HCPCS: 87493; 87798 ==

== ENCOUNTER 2017-05-17 08:00 | Outpatient (CLI) | payer MEDICARE, MEDICAID ==
[2017-05-17 07:51] LABS: BILIRUBIN,URINE NEGATIVE (NEGATIVE); GLUCOSE, URINE (UA) NEGATIVE (NEGATIVE); KETONES,URINE (UA) NEGATIVE (NEGATIVE); LEUKOCYTE ESTERASE, URINE MODERATE (NEGATIVE); NITRITE,URINE NEGATIVE (NEGATIVE); OCCULT BLOOD,URINE SMALL (NEGATIVE); PROTEIN,URINE NEGATIVE (NEGATIVE); UROBILINOGEN,URINE 0.2 (NORMAL) E.U./dL (NORMAL)
[2017-05-17 07:56] LABS: CLARITY,URINE HAZY (CLEAR)
[2017-05-17 08:03] LABS: BACTERIA,URINE Few /HPF (None Seen); SQUAMOUS EPITHELIAL CELL,UR RARE Squamous (<= Few); YEAST,URINE PRESENT
== END 2017-05-17 08:01 | disposition home or self-care (01) ==
LOC: LAB.R 08:00
DX: N39.0 Urinary tract infection, site not specified (principal)
CPT/HCPCS: 81001; 81003; 87086

== ENCOUNTER 2017-07-16 12:28 | Outpatient (CLI) | payer MEDICARE, MEDICAID ==
--- NOTE | 2017-07-16 18:19 | Ultrasound Report ---
RENAL ULTRASOUND: 07/16/2017 CLINICAL INDICATION: Possible bladder stones. TECHNIQUE: Real-time scanning was performed with internet sales representative static images obtained. FINDINGS: The right kidney measures 9.9 x 5.8 x 4.9 cm. Mild right hydronephrosis is present. There is a possible 2 cm calculus present, and an echogenic 3.2 cm nodule in the upper pole of the right kidney, which may represent an angiomyolipoma. Consider CT for further evaluation. The left kidney measures 10.0 x 7.4 x 6.8 cm. Mild hydronephrosis is present. No focal renal lesion or perinephric collection is seen. With the patient's Reyes catheter clamped, the bladder measures 10.2 x 8.6 x 7.9 cm. Bilateral ureteral jets were visualized. No definite bladder calculus is seen. No significant postvoid residual was present following unclamping of the Reyes catheter. IMPRESSION: 1. NO DEFINITE BLADDER CALCULUS IDENTIFIED. 2. POSSIBLE RIGHT RENAL CALCULUS AND SOLID RIGHT RENAL NODULE. CONSIDER CT FOR FURTHER EVALUATION. TD: 07/16/2017 18:18
== END 2017-07-16 12:29 | disposition home or self-care (01) ==
LOC: DI 12:28
PROVIDERS: ATTEND Urology
DX: N21.0 Calculus in bladder (principal)
CPT/HCPCS: 76770

== ENCOUNTER 2017-08-12 12:23 | Outpatient (CLI) | payer MEDICARE, MEDICAID ==
[2017-08-12 12:47] LABS: CREATININE 1.1 mg/dL (0.4-1.0)
[2017-08-12] MEDS ORDERED: IOPAMIDOL-300 100 ML VIAL ONE (13:07)
[2017-08-12] MEDS ORDERED: IOPAMIDOL-300 100 ML VIAL IVP ONE (14:21)
--- NOTE | 2017-08-12 17:22 | CT Report ---
CT ABDOMEN AND PELVIS WITHOUT AND WITH CONTRAST: 08/12/2017 HISTORY: Followup abnormal ultrasound with possible right renal mass. TECHNIQUE: Initial axial noncontrast images are obtained through the kidneys followed by dual phase imaging of the abdomen with delayed images of the pelvis. COMPARISON: CT 09/08/2013 CONTRAST: 95 mL Isovue-300. In accordance with CT protocol optimization, one or more of the following dose reduction techniques were utilized for this exam: Automated exposure control, adjustment of mA and/or KV based on patient size, or use of iterative reconstructive technique. FINDINGS: Clear lung bases. There is a 2.5 x 1.0 cm axial x 3.2 cm vertical stone in the right renal pelvis. No radiopaque gallstones are seen. Following contrast administration, the liver enhances homogeneously and is unremarkable. Spleen, adrenal glands and pancreas are also unremarkable. Mild chronic deformity of both kidneys. There are bilateral extrarenal pelvis. No left renal stones or obstruction appreciated. No evidence of a renal mass is seen on either side. There may be a subcentimeter cyst in the superior medial pole of the right kidney. The large right renal pelvis stone is nonobstructing. The right ureter is mildly dilated to the level of the urinary bladder but no ureteral stone is seen. However the bladder is abnormal with irregular soft tissue thickening along its superior and right lateral margin extending to approximately the right ureteral insertion. There is a suprapubic catheter in place. There is a fem-fem arterial bypass graft. Copious fecal material throughout the entire colon. No free fluid, adenopathy, or abnormal collections. Atrophic appearance of the left iliacus muscle. There is multilevel degenerative change in the spine with approximately 1.7 cm of anterolisthesis of L4 on L5 stable since 09/08/2013. An interbody fusion device is present at this level with posterior laminectomy change. There is moderate lumbar dextroscoliosis. IMPRESSION: 1. LARGE NONOBSTRUCTING RIGHT URETEROPELVIC JUNCTION STONE 3.2 x 2.5 x 1.0 cm. 2. NO RIGHT RENAL MASS IS IDENTIFIED. 3. MILDLY DILATED RIGHT URETER TO THE LEVEL OF THE URINARY BLADDER WHERE PROMINENT IRREGULAR SOFT TISSUE THICKENING DEFORMS THE DOME AND RIGHT SIDE OF THE BLADDER. QUESTION CHRONIC GRANULATION TISSUE FROM SUPRAPUBIC TUBE IRRITATION VERSUS OTHER ETIOLOGIES SUCH NEOPLASM. 4. POSTSURGICAL AND DEGENERATIVE CHANGES IN THE SPINE. 5. FEMORAL-FEMORAL BYPASS GRAFT. TD: 08/12/2017 17:22 YURIY
== END 2017-08-12 12:24 | disposition home or self-care (01) ==
LOC: LAB 12:23 → DI 12:24
PROVIDERS: ATTEND Urology
DX: N20.1 Calculus of ureter (principal); N28.82 Megaloureter; N32.89 Other specified disorders of bladder
CPT/HCPCS: 36415; 74178; 82565; 84520; Q9967

== ENCOUNTER 2017-09-24 08:00 | Outpatient (CLI) | payer MEDICARE, MEDICAID ==
[2017-09-25 01:13] LABS: BILIRUBIN,URINE NEGATIVE (NEGATIVE); GLUCOSE, URINE (UA) NEGATIVE (NEGATIVE); KETONES,URINE (UA) NEGATIVE (NEGATIVE); LEUKOCYTE ESTERASE, URINE MODERATE (NEGATIVE); NITRITE,URINE POSITIVE (NEGATIVE); OCCULT BLOOD,URINE MODERATE (NEGATIVE); PROTEIN,URINE NEGATIVE (NEGATIVE); UROBILINOGEN,URINE 0.2 (NORMAL) E.U./dL (NORMAL)
[2017-09-25 01:15] LABS: CLARITY,URINE CLEAR (CLEAR)
[2017-09-25 01:27] LABS: BACTERIA,URINE Few /HPF (None Seen); SQUAMOUS EPITHELIAL CELL,UR FEW Squamous (<= Few)
== END 2017-09-24 23:59 | disposition home or self-care (01) ==
LOC: LAB.R 08:00
DX: N39.0 Urinary tract infection, site not specified (principal)
CPT/HCPCS: 81001; 81003; 87086; 87181

== ENCOUNTER 2017-10-04 18:07 | Outpatient (CLI) | payer MEDICARE, MEDICAID | END 2017-10-04 18:08 | disposition critical access hospital (66) | LOC: EMS 18:07 | PROVIDERS: ATTEND Surgery | DX: R41.82 Altered mental status, unspecified (principal); M54.9 Dorsalgia, unspecified | CPT/HCPCS: A0425; A0429 ==

== ENCOUNTER 2017-10-04 18:14 | Emergency (ER) | payer MEDICARE, MEDICAID ==
[2017-10-04 19:03] LABS: BASOPHILS % (AUTO) 0.5 %; EOSINOPHILS # (AUTO) 0.4 10^3/uL (0.0-0.7); EOSINOPHILS % (AUTO) 5.3 %; HGB - HEMOGLOBIN 11.2 g/dL (12.0-16.0); LYMPHOCYTES % (AUTO) 28.3 %; MEAN CORPUSCULAR HEMOGLOBIN 26.6 pg (27.0-31.0); MEAN CORPUSCULAR HGB CONC 32.5 g/dL (32.0-36.0); MEAN CORPUSCULAR VOLUME 81.9 fL (81.0-99.0); MEAN PLATELET VOLUME 8.5 fL (7.9-10.8); MONOCYTES # (AUTO) 0.7 10^3/uL (0.0-1.0); MONOCYTES % (AUTO) 9.5 %; NEUTROPHILS % (AUTO) 56.4 %; PLT - PLATELET COUNT 204 10^3/uL (130-450); WHITE BLOOD COUNT 7.1 x10^3/uL (4.8-10.8)
[2017-10-04 19:18] LABS: ALBUMIN 3.6 g/dL (3.2-5.5); BILIRUBIN,TOTAL 0.3 mg/dL (0.2-1.0); CALCIUM 9.1 mg/dL (8.5-10.3); CREATININE 1.7 mg/dL (0.4-1.0); TOTAL PROTEIN 7.2 g/dL (6.7-8.2)
--- NOTE | 2017-10-04 19:25 | ED Physician Documentation ---
History of Present Illness - Stated complaint Stated Complaint: WEAKNESS - Chief complaint Chief Complaint: General - History obtained from History obtained from: Patient, EMS - History of Present Illness Timing: Today Pain level max: 0 Pain level now: 0 - Additonal information Additional information: 72 year old female, who lives at [facility] and noted to be weaker than usual today. Staff said she was more confused than usual as well. No fevers. No vomiting. no abdominal pain. no diarrhea. Patient states that she has felt weak for 2 weeks. Suprapubic catheter in place, last changed 09/18/17. Review of Systems Ten Systems: 10 systems reviewed and negative Constitutional: denies: Fever, Chills Ears: denies: Ear pain Nose: denies: Rhinorrhea / runny nose, Congestion Throat: denies: Sore throat Cardiac: denies: Chest pain / pressure Respiratory: denies: Cough, Wheezing GI: denies: Nausea, Vomiting, Diarrhea Skin: denies: Rash Musculoskeletal: denies: Neck pain, Back pain Neurologic: denies: Headache PD PAST MEDICAL HISTORY - Past Medical History Past Medical History: Yes Cardiovascular: Hypertension, High cholesterol Respiratory: Pneumonia Endocrine/Autoimmune: Type 2 diabetes GI: GERD : Chronic bladder infection, Other HEENT: None Psych: Depression, Anxiety Musculoskeletal: Chronic back pain Derm: Other - Past Surgical History Past Surgical History: Yes General: Appendectomy, Colonoscopy, EGD Ortho: Spine surgery, Amputation, 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 - Present Medications Home Medications: Ambulatory Orders Medication Instructions Recorded Confirmed Aspirin Chewable [St Flavio 81 mg PO DAILY 09/29/13 04/26/17 Aspirin] Citalopram [CeleXA] 20 mg PO QPM 09/29/13 04/26/17 Docusate Sodium 500 mg PO BID 09/29/13 04/26/17 Omeprazole [PriLOSEC] 20 mg PO DAILY 09/29/13 04/26/17 diltiaZEM CD [Cardizem Cd] 240 mg PO BID 09/29/13 04/26/17 Multivitamin [Multivitamins] 1 each PO DAILY 06/06/14 04/26/17 Potassium Chloride 20 meq PO DAILY 06/06/14 04/26/17 Albuterol 2.5 mg INH Q4H PRN 02/14/17 04/26/17 Gabapentin [Neurontin] 900 mg PO TID 02/14/17 04/26/17 Losartan [Cozaar] 100 mg PO DAILY 02/14/17 04/26/17 QUEtiapine [SEROquel] 300 mg PO QPM 02/14/17 04/26/17 Senna [Senokot] 17.2 mg PO DAILY 02/14/17 04/26/17 diphenhydrAMINE [Benadryl] 25 mg PO BID PRN 02/14/17 04/26/17 tiZANidine [Zanaflex] 4 mg PO Q8H 02/14/17 04/26/17 DULoxetine [Cymbalta] 30 mg PO DAILY 02/19/17 04/26/17 Gentamicin in NaCl, Iso-Osm 500 mg IV ONCE #100 ml 03/03/17 04/26/17 [Gentamicin 100 mg/Ns 100 ml] Meropenem [Merrem] 1 gm IV Q8H 4 Days #12 vial 03/03/17 04/26/17 Nystatin Cream [Mycostatin Cream] 1 applic TOP BID tube 03/03/17 04/26/17 oxyCODONE/ACET 5/325 [Percocet 5 2 each PO DAILY #30 tablet 03/03/17 04/26/17 mg/325 mg] Furosemide [Lasix] 1 tab PO BID 04/25/17 04/26/17 Nitrofurantoin Monohyd/M-Cryst 100 mg PO BID #14 capsule 04/25/17 04/26/17 [Macrobid 100 mg Capsule] - Allergies Allergies/Adverse Reactions: Allergies Allergy/AdvReac Type Severity Reaction Status Date / Time erythromycin base Allergy Severe Anaphylaxis Verified 10/04/17 18:27 [Erythromycin Base] Penicillins Allergy Severe Anaphylaxis Verified 10/04/17 18:27 Sulfa (Sulfonamide Allergy Severe Redness/High Verified 10/04/17 18:27 Antibiotics) fever lisinopril Allergy Unknown Unknown Verified 10/04/17 18:27 ceftriaxone Allergy Rash Verified 10/04/17 18:27 quinidine Allergy Rash Verified 10/04/17 18:27 - Social History Does the pt smoke?: No Smoking Status: Never smoker Does the pt drink ETOH?: No Does the pt have substance abuse?: No - Immunizations Immunizations are current?: No Immunizations: TDAP >10years/unknown - POLST Patient has POLST: No POLST Status: Full Code PD ED PE NORMAL - Vitals Vital signs reviewed: Yes - General General: No acute distress, Well developed/nourished, Other (alert, oriented to person and place) - HEENT HEENT: Moist mucous membranes - Neck Neck: Supple, no meningeal sign - Cardiac Cardiac: RRR - Respiratory Respiratory: No respiratory distress, Clear bilaterally - Abdomen Abdomen: Soft, Non tender, Non distended, Other (no signs of infection around the suprapubic cath) - Back Back: No CVA TTP, No spinal TTP - Derm Derm: Warm and dry - Extremities Extremities: No edema, No calf tenderness / cord - Neuro Neuro: Other (alert, oriented to person and place) Results - Vitals Vitals: Vital Signs - 24 hr 10/04/17 10/04/17 10/04/17 18:21 19:27 20:28 Temperature 36.9 C Heart Rate 72 83 98 Respiratory 18 22 20 Rate Blood Pressure 125/70 122/72 102/65 O2 Saturation 97 100 100 10/04/17 22:00 Temperature Heart Rate 90 Respiratory 20 Rate Blood Pressure 115/66 O2 Saturation 93 Oxygen O2 Source Room air - Labs Labs: Laboratory Tests 10/04/17 10/04/17 10/04/17 18:52 18:52 18:52 WBC 7.1 RBC 4.20 Hgb 11.2 L Hct 34.4 L MCV 81.9 MCH 26.6 L MCHC 32.5 RDW 15.0 Plt Count 204 MPV 8.5 Neut # 4.0 Lymph # 2.0 [place] # 0.7 Eos # 0.4 Baso # 0.0 Absolute Nucleated RBC 0.00 Nucleated RBC % 0.0 Sodium 136 Potassium 3.9 Chloride 97 L Carbon Dioxide 30 Anion Gap 9.0 BUN 32 H Creatinine 1.7 H Estimated GFR (MDRD) 29 L Glucose 91 Lactic Acid 0.7 Calcium 9.1 Total Bilirubin 0.3 AST 22 ALT 13 Alkaline Phosphatase 48 Total Protein 7.2 Albumin 3.6 Globulin 3.6 Albumin/Globulin Ratio 1.0 Lipase 30 Urine Color Urine Clarity Urine pH Ur Specific [place] Urine Protein Urine Glucose (UA) Urine Ketones Urine Occult Blood Urine Nitrite Urine Bilirubin Urine Urobilinogen Ur Leukocyte Esterase Urine RBC Urine WBC Urine WBC Clumps Ur Squamous Epith Cells Amorphous Sediment Urine Bacteria Urine Yeast Ur Microscopic Review Urine Culture Comments 05/27/18 19:35 WBC RBC Hgb Hct MCV MCH MCHC RDW Plt Count MPV Neut # Lymph # [place] # Eos # Baso # Absolute Nucleated RBC Nucleated RBC % Sodium Potassium Chloride Carbon Dioxide Anion Gap BUN Creatinine Estimated GFR (MDRD) Glucose Lactic Acid Calcium Total Bilirubin AST ALT Alkaline Phosphatase Total Protein Albumin Globulin Albumin/Globulin Ratio Lipase Urine Color YELLOW Urine Clarity CLOUDY Urine pH 5.5 Ur Specific [place] 1.010 Urine Protein 30 H Urine Glucose (UA) NEGATIVE Urine Ketones NEGATIVE Urine Occult Blood LARGE H Urine Nitrite NEGATIVE Urine Bilirubin NEGATIVE Urine Urobilinogen 0.2 (NORMAL) Ur Leukocyte Esterase LARGE H Urine RBC TNTC H Urine WBC >25 H Urine WBC Clumps PRESENT Ur Squamous Epith Cells RARE Squamous Amorphous Sediment Few Urine Bacteria Moderate H Urine Yeast PRESENT Ur Microscopic Review INDICATED Urine Culture Comments INDICATED PD MEDICAL DECISION MAKING - ED course Complexity details: reviewed results, re-evaluated patient, considered differential, d/w patient, d/w PMD ED course: Patient is a 72-year-old female who lives at [facility], and was sent here for evaluation today. She appears to have a colonized urinary catheter. No fevers. No leukocytosis. She is at her normal mental baseline here. Family present in the emergency department and does confirm this as well. Discussed the case with Dr. Washington, her primary care provider who will see her tomorrow at [facility]. Will hold off on antibiotics at this time as this appears to be a colonization. No acute laboratory findings either. Patient and family counseled regarding signs and symptoms for which I believe and urgent re-evaluation would be necessary. Patient with good understanding of and agreement to plan and is comfortable going home at this time This document was made in part using voice recognition software. While efforts are made to proofread this document, sound alike and grammatical errors may occur. The patient is in absolutely no distress in the Emergency department. She does not appear somnolent. She is wide awake, moving under her own power. She is not weak. Dr. Washington states that recently her Seroquel was changed and that this has caused issues with her being more somnolent and weak in the past and that this may be the cause of her symptoms. Departure - Departure Disposition: 01 Home, Self Care Clinical Impression: Generalized weakness Condition: Good Follow-Up: PETROS WASHINGTON, [Physician No Access] - Tomorrow Comments: I have spoken with Dr. Felix arambula and he will come and see you tomorrow at [facility]. Return if you worsen. There are no acute laboratory abnormalities to explain her symptoms and it may be due to your recent medication changes.
[2017-10-04 19:48] LABS: BILIRUBIN,URINE NEGATIVE (NEGATIVE); GLUCOSE, URINE (UA) NEGATIVE (NEGATIVE); KETONES,URINE (UA) NEGATIVE (NEGATIVE); LEUKOCYTE ESTERASE, URINE LARGE (NEGATIVE); NITRITE,URINE NEGATIVE (NEGATIVE); OCCULT BLOOD,URINE LARGE (NEGATIVE); PH,URINE 5.5 PH (5.0-7.5); PROTEIN,URINE 30 mg/dL (NEGATIVE); UROBILINOGEN,URINE 0.2 (NORMAL) E.U./dL (NORMAL)
[2017-10-04 19:55] LABS: CLARITY,URINE CLOUDY (CLEAR)
[2017-10-04 20:04] LABS: BACTERIA,URINE Moderate /HPF (None Seen); RBC,URINE TNTC /HPF (0-5); SQUAMOUS EPITHELIAL CELL,UR RARE Squamous (<= Few); WBC CLUMPS,URINE PRESENT
[2017-10-04 20:05] LABS: AMORPHOUS SEDIMENT,UR Few /LPF; YEAST,URINE PRESENT
[2017-10-04 22:18] VITALS: BP 115/66
== END 2017-10-05 01:18 | disposition home or self-care (01) ==
LOC: EDUNIT# → ED 18:14
DX: R53.1 Weakness (principal); I10 Essential (primary) hypertension; E78.00 Pure hypercholesterolemia, unspecified; E11.9 Type 2 diabetes mellitus without complications; Z79.82 Long term (current) use of aspirin
CPT/HCPCS: 36415; 80053; 81001; 81003; 83605; 83690; 85025; 87077; 87086; 87181; 99283; 99284

== ENCOUNTER 2017-10-06 14:00 | Outpatient (CLI) | payer MEDICARE, MEDICAID ==
--- NOTE | 2017-10-06 21:18 | CONSULTATION NOTE ---
Palliative Care Consultation - Referral Referring Provider: Dr. Lorenzo Washington Time of Visit: 6600-1799 Referral setting: Senior Living Facility Referral Reason: Chronic Pain Syndrome/Pal Care - Information Sources Records reviewed: Previous records reviewed History/Review of Systems obtained from: Patient, Caregiver (clinical staff) Exam limitations: Clinical condition (Patient presents with short-term memory deficits, wanders off topic but able to bring back;) - History of Present Illness Brief History of Present Illness: This is a complicated 72-year-old woman who has been a resident of [facility] From what she reports as 5 years. She is somewhat a poor historian , and is very rambling when trying to obtain history. She does have but it sounds as failed back, a recent CT scan on 08/12 2017 does show a interbody fusion device at the level of L4 and L5. She reports baseline pain and spasms in this area. It also shows a themthem bypass graft, which would explain her description of something "popping down there". She also has a left AKA, with a reported major issue of persistent pain, she describes sharp shooting of the fluctuating nature. She also complains of bilateral shoulder pain, as well as severe osteoarthritis in her hands, and sharp shooting pain and numbness in her right hand in particular. She is working with or so, their notes to document carpal tunnel, she was to be getting nerve testing she could not tell me if this had occurred. Pain management has been a challenge, particularly in the context in setting of her schizophrenia, anxiety, and depression. She is currently on a recently titrated up dose of Lyrica 100 mg 3 times daily after transitioning from gabapentin. Patient has very little insight into her her pain pills, is unclear if this is been helpful. She is also on tizanidine 6 mg 1 p.o. 4 times a day, given her past medical records this looks like this is been increased recently from 3-4. As well as significant increase in her duloxetine over the last several months to 120 mg. She is on scheduled oxycodone 10 mg 1-1/2 tabs 3 times daily with 5 mg available for breakthrough pain, she is using this on an average about 1 or less times a day. She also was recently in the ED for altered consciousness, patient had been hypoxic, more lethargic, and presented with increased weakness. She has recently been treated for a UTI, she has a history of multiple drug-resistant organisms, as she has been treated and hospitalized for sepsis several times over the last few years regarding her status post suprapubic catheter. It is unclear the underlying etiology and patient unclear are unable to tell me why she has one. She has recently been followed by Dr. Harrington, she has chronic inflammatory changes in there, but negative for neoplasm with last cystoscopy in August. Patient without leukocytosis, back to baseline at time of exam, but of note her microbiology still grew out enterococcus facellus which was present on 09/24 speciman. Patient presents today is quite pleasant, somewhat rambling in her conversation , she does appear somewhat lethargic. I did have her O2 sat monitor on for part of the visit, she drifted off she does decreased to 8889%. Her breath sounds are diminished in the bases, no cough, no history per patient of COPD. Patient without fever or chills, no tachycardia, blood pressure within normal limits. Patient herself requested a hold on her medication this a.m. as she had felt oversedated, denies shortness of breath. Patient's perception of her pain, is fluctuating, sharp shooting, when escalates his "unbearable". She reports this does not remain sustained. She reports her most painful area at this point in time, is her hand and the sharp shooting pain and numbness. Medical/Surgical History - Past Medical History Cardiovascular: reports: Hypertension, High cholesterol Respiratory: reports: Asthma, Pneumonia Neuro: Headaches, Peripheral neuropathy Neuro: reports: None Endocrine/Autoimmune: reports: Type 2 diabetes GI: reports: GERD, C.difficile, Chronic constipation : reports: Chronic bladder infection, Kidney stones, Other (suprapubic flores catheter) HEENT: reports: Other (poor dentition) Psych: reports: Depression, Anxiety, Schizophrenia Musculoskeletal: reports: Osteoarthritis, Chronic back pain, Other (post amp pain/phantom limb) Derm: reports: Other (venous stasis right lower leg) MRSA Hx?: Yes - Past Surgical History General: reports: Appendectomy, Colonoscopy, EGD Ortho: reports: Spine surgery ("failed back" with cage), Amputation, 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 She does seem somewhat estranged from her family as unable to identify any when she is been in contact with. She reports she [place] 4 [place] She reports she had originally lived with them and came to [facility], though is unable to expand on their relationship. Family History - Family History Family History: Mother: (age 68; age 74 reports pneumonia), Father: , Brother: Alive and Well (one brother cellulitis;06/20 passed per her report) Medications/Allergies - Medications Home Medications: Ambulatory Orders Medication Instructions Recorded Confirmed Aspirin Chewable [St Flavio 81 mg PO DAILY 09/29/13 10/06/17 Aspirin] Docusate Sodium 500 mg PO BID 09/29/13 10/06/17 Omeprazole [PriLOSEC] 20 mg PO DAILY 09/29/13 10/06/17 diltiaZEM CD [Cardizem Cd] 240 mg PO BID 09/29/13 10/06/17 Multivitamin [Multivitamins] 1 each PO DAILY 06/06/14 10/06/17 Potassium Chloride 20 meq PO DAILY 06/06/14 10/06/17 Losartan [Cozaar] 100 mg PO DAILY 02/14/17 10/06/17 QUEtiapine [SEROquel] 300 mg PO QPM 02/14/17 10/06/17 Senna [Senokot] 17.2 mg PO BID 02/14/17 10/06/17 diphenhydrAMINE [Benadryl] 25 mg PO DAILY 02/14/17 10/06/17 tiZANidine [Zanaflex] 4 mg PO Q6HR 02/14/17 10/06/17 DULoxetine [Cymbalta] 120 mg PO DAILY 02/19/17 10/06/17 Furosemide [Lasix] 40 mg PO BID 04/25/17 10/06/17 Acetaminophen 500 mg PO Q6HR PRN 10/06/17 10/06/17 Albuterol 1 inh NEB Q4HR PRN 10/06/17 10/06/17 Meclizine HCl [Motion Sickness 25 mg PO BID PRN 10/06/17 10/06/17 Relief] Melatonin 3 mg PO ACHS 10/06/17 10/06/17 Polyethylene Glycol 3350 [Miralax] 17 gm PO DAILY 10/06/17 10/06/17 Pregabalin [Lyrica] 100 mg PO TID 10/06/17 10/06/17 Saccharomyces Boulardii [Florastor] 250 mg PO BID 10/06/17 10/06/17 oxyCODONE/ACET 5/325 [Percocet 5 10 mg PO TID 10/06/17 10/06/17 mg/325 mg] - Allergies Allergies/Adverse Reactions: Allergies Allergy/AdvReac Type Severity Reaction Status Date / Time erythromycin base Allergy Severe Anaphylaxis Verified 10/04/17 18:27 [Erythromycin Base] Penicillins Allergy Severe Anaphylaxis Verified 10/04/17 18:27 Sulfa (Sulfonamide Allergy Severe Redness/High Verified 10/04/17 18:27 Antibiotics) fever lisinopril Allergy Unknown Unknown Verified 10/04/17 18:27 ceftriaxone Allergy Rash Verified 10/04/17 18:27 quinidine Allergy Rash Verified 10/04/17 18:27 Review of Systems - Constitutional Constitutional: reports: Fatigue - Eyes Eyes: reports: Vision loss, Corrective lenses - Ears, Nose & Throat Ears, Nose & Throat: reports: Dental decay (getting support from [place]), Dry mouth - Cardiovascular Cardiovascular: reports: Decr. exercise tolerance - Respiratory Respiratory: denies: Cough, SOB at rest - Gastrointestinal Gastrointestinal: reports: Constipation, Bloating, Early satiety - Genitourinary Genitourinary: reports: Other (suprapubic flores catheter) - Musculoskeletal Musculoskeletal: reports: Muscle pain, Back pain, Muscle aches, Stiffness, Limited range of motion, Muscle weakness, Joint swelling (right wrist), Transfer issues (wheelchair bound) - Integumentary Integumentary: reports: Dryness, Other (venous stasis right LE) - Neurological Neurological: reports: General weakness, Headache (intermittent), Dizziness (at times), Memory problems - Psychiatric Psychiatric: reports: Depression, Anxiety, Hallucinations (per staff report; patient had some mild delusions regarding pain) - Endocrine Endocrine: reports: Diabetes type 2 - Hematologic/Lymphatic Hematologic/Lymphatic: reports: Recurrent infections (reccurrent UTIs) - All Other Systems All Other Systems: reports: Reviewed and negative Physical Exam - Vital Signs Temperature: 97.0 C Pulse Rate: 54 Respiratory Rate: 18 O2 Saturation: 92 (ra @ rest see notes) Blood Pressure: 108/54 - Physical Exam General Appearance: positive: No acute distress, Anxious Eyes Bilateral: positive: Normal inspection ENT: positive: Dry mucous membranes, Other (lips dry) Neck: positive: No JVD, Trachea midline Cardiovascular: positive: Regular rate & rhythm Respiratory: positive: Diminished in bases, Other (patient with intermittent hypoxia to 88-89% noted when drifting/stimulated awake resolved). negative: Wheezes, Rales, Rhonchi Abdomen: positive: Non-tender, Soft, Other (exit site supra pubic) Skin: positive: Pallor, Dryness, Other (pale pink shiney skin/venous stasis without plaques) Extremities: positive: No pedal edema Neurologic/Psychiatric: positive: Oriented x3, Mood/affect nml, Weakness Palliative Care - POLST Patient has POLST: Yes POLST Status: DNR, Comfort Measures (filled out with Dr. Luong 04/2017 see palliative care discussion) Pain: Pain improved, Location (see HPI) Tiredness/Fatigue: Moderate (4-6) Drowsiness/Sedation: Moderate (4-6) Nausea: None Depression: Moderate (4-6) (reports loneliness and sadness) Anxiety: Moderate (4-6) (finds dealilng with her medical issues overwhelming) Dyspnea: None Anorexia: Mild (1-3), Weight loss (of note patient has lost about 40 pounds over the last year) Sleep: Variable sleep pattern Constipation: Yes, Opoid induced, Unmanaged Performance Status: Patient able to independently transfer back and forth from the hospital bed, reports she is awaiting a wheelchair cushion as well as a change in her bed. She does have good upper body strength. She does remain somewhat independent in her room, she does self-feed. She does need assistance with bathing and dressing. - Palliative Care Discussion: This is patient's and my first meeting, she was willing to meet and spend time establishing rapport. Of note when ventured into questions regarding family and goals of care, patient would start rocking behaviors and pain behaviors with increased anxiety. When asked if there was anyone who could speak for her if she was severely ill, she reports she has not talked things over with her daughter, but they always show up. She does not know who calls them as they were there again at the hospital. Her perception is "she cannot fight for herself", that the doctors get tired of her, unclear if she has any insight into the chronicity and seriousness of her ongoing health issues. Does profess a strong maday, that this is something that is of help in her coping. Would be interested in seeing smelter charger from our team. Results - Lab Results Lab results reviewed: Yes Impression and Recommendations - Palliative Care Impression: This is a 72-year-old complex woman who has long-standing chronic health issues , with a multifactorial chronic pain syndrome. Her underlying mental health issues add to the challenge of assessment and treatment. Palliative care to provide support and evaluation for addressing quality of life issues and goals of care. Recommendations/Counseling Done: 1. Chronic pain syndrome. Patient recently transitioned to Lyrica with escalation 100 mg 3 times daily, this is most likely most appropriate route to be looking at given the neuropathic contingency of her pain. 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 Her most problematic pain and distress is her sharp shooting pain and discomfort and numbness in her right hand. She is currently in workup with ortho would recommend follow-up as soon as possible regarding this, unclear where she is at ortho notes revealed patient may be a candidate for injection as well as addressing carpal tunnel syndrome. Given patient's frustration and goals to be more actively engaged, discussed use of topical temporarily, ordered Biofreeze 3 times daily to hand and stump, with goal to "turn down the volume of the pain" and trial. Patient also has increased lethargy with resulting hypoxia, recent increase of opioid oxycodone to 15 mg 3 times daily, patient also perceives some sedation. In agreement to decrease to 10 mg 3 times daily, does have breakthrough dose available. Given the underlying etiology of her pain, opioid most likely not an effective route. Order for as needed oxygen provided, has concentrator in room.Will also follow up with therapy regarding wheelchair cushion as a source of discomfort. 2. Depression. Will follow-up with psychiatric nurse practitioner, has had rapid escalation of her duloxetine as well, noted in 02/2017 she was only on 30 mg. Duloxitine Is also used in chronic pain syndrome, but given her recent transition to Lyrica, will follow up if some negotiation given her lethargy to decrease dose. 3.Constipation. Patient with initiation of bowel program 2 times this month, patient's perception is she is having increased hard stool and intermittent constipation. Patient has been inconsistent in reporting her bowels per clinical staff, will increase senna to 2 tabs twice daily though given her medication regimen. 4. Advanced care planning. Patient does not have per her perception and identified DURABLE POWER OF LEATHER ETCHER, it would by default unless she states otherwise go to her daughter to [facility] designation of DPOAE. Patient' s perception of her quality of life is fairly poor, patient is at high risk for sequela regarding her recurrent UTIs. She has had some significant hospitalizations regarding urosepsis. Will continue to establish rapport and trust, to further establish goals of care. She does have a DAMASO ST in place, that is a DNA R and comfort measures, unclear if patient with good understanding given her frequent hospitalizations. Will continue to work on establishing plan. Prognostication; on the FLACC her one-year long stay for care home residence age 65 and older looking at all causes 1 year mortality risk calculator. This calculators give an estimate of how many people with similar risk factors will live and but not identify who will live and he will . She does score a 6 which puts her at a risk of 1 year mortality at 31%. Time Spent: 120 minutes with greater than 50% of this done in counseling regarding pain and symptom management, coordination of care with clinical staff and director, and anticipatory guidance
== END 2017-10-06 14:01 | disposition home or self-care (01) ==
LOC: PC 14:00
PROVIDERS: ATTEND Nurse Practitioner Adult Health
DX: Z51.5 Encounter for palliative care (principal); G89.4 Chronic pain syndrome; F32.9 Major depressive disorder, single episode, unspecified; K59.03 Drug induced constipation; T40.2X5D Adverse effect of other opioids, subsequent encounter; Z79.891 Long term (current) use of opiate analgesic; F20.9 Schizophrenia, unspecified; G54.6 Phantom limb syndrome with pain; M62.81 Muscle weakness (generalized); Z89.612 Acquired absence of left leg above knee; Z96.0 Presence of urogenital implants; Z99.3 Dependence on wheelchair; Z66 Do not resuscitate; F41.9 Anxiety disorder, unspecified
CPT/HCPCS: 99306

== ENCOUNTER 2017-10-14 15:15 | Outpatient (CLI) | payer MEDICARE, MEDICAID ==
--- NOTE | 2017-10-14 17:58 | CONSULTATION NOTE ---
Palliative Care Follow Up - Referral Referring Provider: Dr. 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 Her diagnosis includes schizophrenia, and she does present with some paranoia today. She is somewhat a poor historian, But does have fairly severe pain, this is multifactorial in origin. 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 She also describes episodes of myoclonus, episodes of lethargy, and has understood line severe osteoarthritis. 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 She is currently on Lyrica 100 mg 3 times a day, after transitioning from gabapentin. She does feel that this is been of help in review, she does recognize the medication from the commercials. She has been trialed and Biofreeze this week for her hands and stump, she reports this does help some as well and would like to continue. She has been on scheduled oxycodone 15 mg 3 times daily, I have decreased this to 10 mg 3 times daily given concerns for her hypoxia and lethargy. She does have 5 mg available for breakthrough pain, and has only used this twice in the last week. She has been on nitrofurantoin for the week as a follow-up for her in her ED visit and identified infection, patient is quite opinionated on her visit there, reports she will not go back to the hospital again. I find her engaged today, willing to have conversation, she is less anxious. She did recall some of her conversation with a orthopedist, unclear what the final outcome was. I did look at the notes in follow-up, she is to give a referral to a hand surgeon. This is probably good, given that she did not like her interaction with the orthopedist or their office. I understand this is not unusual for her to be somewhat discontent with providers, but she is willing to continue with our visit today.She did have a fall yesterday, she reports her head got heavy, and she rolls on through. Is unclear if she had any kind of injury, but they are doing frequent checks on her. She does describe episodes where she is "sleeping", cannot open her eyes, but can hear the things that are happening around her. She also reports poor sleeping, she is fearful at nighttime, and does appear to have some paranoia. Unable to discern exactly what she is fearful of, but perceives herself then as more tired during the day. Staff do report she is up through the evening and sleeps late in the morning Social History - Living Situation Living arrangement: half-way Support System: Patient has been a long-term resident for 5 years, she does have family, she has 3 daughters, but does appear to have some estrangement there. Medications/Allergies - Medications Home Medications: Ambulatory Orders Medication Instructions Recorded Confirmed Aspirin Chewable [St Flavio 81 mg PO DAILY 09/29/13 10/14/17 Aspirin] Docusate Sodium 500 mg PO BID 09/29/13 10/14/17 Omeprazole [PriLOSEC] 20 mg PO DAILY 09/29/13 10/14/17 diltiaZEM CD [Cardizem Cd] 240 mg PO BID 09/29/13 10/14/17 Multivitamin [Multivitamins] 1 each PO DAILY 06/06/14 10/14/17 Potassium Chloride 20 meq PO DAILY 06/06/14 10/14/17 Losartan [Cozaar] 100 mg PO DAILY 02/14/17 10/14/17 QUEtiapine [SEROquel] 300 mg PO QPM 02/14/17 10/14/17 Senna [Senokot] 17.2 mg PO BID 02/14/17 10/14/17 diphenhydrAMINE [Benadryl] 25 mg PO DAILY 02/14/17 10/14/17 tiZANidine [Zanaflex] 4 mg PO TID 02/14/17 10/14/17 DULoxetine [Cymbalta] 120 mg PO DAILY 02/19/17 10/14/17 Furosemide [Lasix] 40 mg PO BID 04/25/17 10/14/17 Acetaminophen 500 mg PO Q6HR PRN 10/06/17 10/14/17 Albuterol 1 inh NEB Q4HR PRN 10/06/17 10/14/17 Meclizine HCl [Motion Sickness 25 mg PO BID PRN 10/06/17 10/14/17 Relief] Melatonin 3 mg PO ACHS 10/06/17 10/14/17 Polyethylene Glycol 3350 [Miralax] 17 gm PO DAILY 10/06/17 10/14/17 Pregabalin [Lyrica] 100 mg PO TID 10/06/17 10/14/17 Saccharomyces Boulardii [Florastor] 250 mg PO BID 10/06/17 10/14/17 oxyCODONE/ACET 5/325 [Percocet 5 5 mg PO TID 10/06/17 10/14/17 mg/325 mg] oxyCODONE [Roxicodone] 5 mg PO TID PRN 10/14/17 10/14/17 - Allergies Allergies/Adverse Reactions: Allergies Allergy/AdvReac Type Severity Reaction Status Date / Time erythromycin base Allergy Severe Anaphylaxis Verified 10/04/17 18:27 [Erythromycin Base] Penicillins Allergy Severe Anaphylaxis Verified 10/04/17 18:27 Sulfa (Sulfonamide Allergy Severe Redness/High Verified 10/04/17 18:27 Antibiotics) fever lisinopril Allergy Unknown Unknown Verified 10/04/17 18:27 ceftriaxone Allergy Rash Verified 10/04/17 18:27 quinidine Allergy Rash Verified 10/04/17 18:27 Review of Systems - Constitutional Constitutional: reports: Fatigue, Weight loss - Eyes Eyes: reports: Vision loss, Corrective lenses - Ears, Nose & Throat Ears, Nose & Throat: reports: Hearing loss, Dental decay, Dry mouth - Cardiovascular Cardiovascular: denies: Chest pain - Respiratory Respiratory: denies: Cough, SOB at rest - Gastrointestinal Gastrointestinal: reports: Good appetite. denies: Constipation (reports constipation improved; reports BM up to two times a day), Nausea, Reflux/ heartburn - Genitourinary Genitourinary: reports: Other (suprapubic catheter) - Musculoskeletal Musculoskeletal: reports: Back pain, Muscle aches, Stiffness, Limited range of motion, Muscle weakness, Transfer issues (transfers with trapeze to bed; AKA left) - Integumentary Integumentary: reports: Dryness - Neurological Neurological: reports: General weakness, Dizziness, Memory problems - Psychiatric Psychiatric: reports: Depression, Anxiety, Delusions - Endocrine Endocrine: reports: Diabetes type 2 - Hematologic/Lymphatic Hematologic/Lymphatic: reports: Recurrent infections (currently being treated for UTI) - All Other Systems All Other Systems: reports: Reviewed and negative Physical Exam - Vital Signs Temperature: 98.2 C Pulse Rate: 58 Respiratory Rate: 18 O2 Saturation: 92 (ra @ rest) Blood Pressure: 120/78 - Physical Exam General Appearance: positive: No acute distress, Lethargic (improved from last visit; though describes episodes could attribute to lethargy) Eyes Bilateral: positive: Normal inspection ENT: positive: No signs of dehydration Neck: positive: No JVD, Trachea midline Cardiovascular: positive: Regular rate & rhythm Respiratory: positive: Diminished in bases. negative: Wheezes, Rales, Rhonchi Abdomen: positive: Soft, Nml bowel sounds, Obese Skin: positive: Pallor, Dryness Extremities: positive: No pedal edema, Other (AKA Left;) Neurologic/Psychiatric: positive: Oriented x3, Mood/affect nml, Weakness Palliative Care - POLST Patient has POLST: Yes POLST Status: DNR, Comfort Measures Pain: Pain improved, Location (see HPI) Tiredness/Fatigue: Moderate (4-6) Drowsiness/Sedation: Moderate (4-6) Nausea: None Depression: Moderate (4-6) Anxiety: Moderate (4-6) Dyspnea: Mild (1-3) Anorexia: None Sleep: Sleeps poorly, Variable sleep pattern Constipation: Yes, Opoid induced, Managed Feelings of wellbeing/Perceived Quality of Life: Fair, No change Performance Status: Patient dependent on staff for ADLs, she is able to independently transfer and feed herself. Though she does report "dropping her utensils". This does seem attributed sinus myoclonus. She has variable sleep patterns, such as get fatigued quite easily - Palliative Care Discussion: Patient more comfortable and less anxious today did revisit durable power of health district attorney. Patient is quite angry that her daughter whom she has no relationship keep showing up at the hospital, I suspect it is because they have her as next of kin. Will see if can remedy this, as patient does not want her involved in her care. We did discuss though the need for a durable power of health district attorney, I did provide her with a document regarding "health proxy". She cannot identify any when that she would consider asking or "trust". We will continue to try and elicit her wishes and document them as far as being able to follow in the future. Currently she is quite clear she does not want to go back to the hospital, but I do not know if she understands the implications if she were having an end-of-life event or serious acute illness Impression and Recommendations - Palliative Care Impression: This is a complicated 72-year-old woman who has long-standing chronic health issues, with a multifactorial chronic pain syndrome. Her ongoing mental health issues to add to the challenge both an assessment and treatment. Palliative care to provide support for pain and symptom management and evaluation for addressing quality of life issues and goals of care. Recommendations/Counseling Done: 1. Chronic pain syndrome. Patient on Lyrica 100 mg 3 times daily, this continues to be an appropriate medication given a contingency of her neuropathic pain. She does appreciate the Biofreeze, will continue to keep this on the schedule. Patient has not used much for breakthrough pain, will go ahead and decrease the oxycodone to 5 mg 3 times a day, continue with breakthrough dose available. Again wanting to address her lethargy and sedation. Also decrease to tizanidine to 3 times daily, her every 6 hours has been a recent change in last several months. Did follow up regarding orthopedic appointment, it did actually happen, she is receiving a referral to a hand specialist. Hopefully this will address her carpal tunnel syndrome and her concerns. She is complaining also significantly of "dropsies" and impact on eating, has had weighted utensils in past will follow up if possible to trial / borrow from rehab or if have to get OT referral. 2. Depression. Had spoken with her psychiatric nurse practitioner regarding my concerns around sedation, and high doses Cymbalta, he did have an appointment with her on 10/13, Have not heard back about any changes. Patient does appear to have a little bit more paranoia and anxiety over all this visit may just be more comfortable as far as sharing her inner thoughts. 3. Constipation. Patient reports bowels moving at least once a day occasionally twice a day. Unclear if this is problematic at this point in time , will continue to monitor. 4. Medication adherence. Patient dislikes dramatically the focus state, she denies any further mouth ulcers, will go ahead and discontinue. Patient reports she does not remember or understand her medications, we did discuss I would make a list for her and we would review on a regular basis, so patient feels more included and in control. 5. Advanced care planning. Will continue to tread lightly as try to elicit patient's goals of care, will be important at some point to identify a durable power of health district attorney, and gain her trust. She does report her maday is of great comfort to her, she does enjoy [address] study, has not heard yet from palliative care rn circulating will follow up. Plan to see patient on a weekly basis for a few weeks to make progress; looking to meet goals of decreasing lethargy, improving pain management, eliciting goals of care, and identifying issues around quality of life that might be of support to her. Time Spent: 60 minutes was given 50% of this done in counseling and coordination of care with staff, anticipatory guidance and follow-up in titration of medications
== END 2017-10-14 15:16 | disposition home or self-care (01) ==
LOC: PC 15:15
PROVIDERS: ATTEND Nurse Practitioner Adult Health
DX: Z51.5 Encounter for palliative care (principal); G89.4 Chronic pain syndrome; F32.9 Major depressive disorder, single episode, unspecified; K59.03 Drug induced constipation; T40.2X5D Adverse effect of other opioids, subsequent encounter; Z79.891 Long term (current) use of opiate analgesic; F20.9 Schizophrenia, unspecified; E11.40 Type 2 diabetes mellitus with diabetic neuropathy, unspecified; G62.9 Polyneuropathy, unspecified; Z89.612 Acquired absence of left leg above knee; G54.6 Phantom limb syndrome with pain; Z79.82 Long term (current) use of aspirin; Z96.0 Presence of urogenital implants; M62.81 Muscle weakness (generalized); F41.9 Anxiety disorder, unspecified; Z66 Do not resuscitate
CPT/HCPCS: 99310

== ENCOUNTER 2017-10-21 11:00 | Outpatient (CLI) | payer MEDICARE, MEDICAID ==
--- NOTE | 2017-10-21 21:43 | CONSULTATION NOTE ---
Palliative Care Follow Up - Referral Referring Provider: Dr. Lorenzo Washington Time of Visit: 03-22 Referral setting: [facility] (Patient permanent resident at [facility] for greater than 5 years) Referral Reason: Neuropathic Pain/Goals of care - Information Sources Records reviewed: RN notes reviewed, Previous records reviewed History/Review of Systems obtained from: Patient, Caregiver (clinical staff) Exam limitations: Clinical condition (patient with mild short term memory issues ) - History of Present Illness Update Brief HPI Update: This is a complicated 72-year-old woman who has a long list of comorbidities and [facility]. His diagnoses include schizophrenia, she is being supported by [facility]. She does have hypertension, asthma, headaches, peripheral neuropathy, type 2 diabetes, GERD, chronic bladder infection, kidney stones, suprapubic Reyes catheter, poor dentition, depression, anxiety, osteoarthritis, phantom limb pain, venous stasis on right leg, and now carpal tunnel syndrome. She is a poor historian, but does appear in a good mood today. Palliative care is seen patient in follow-up for her neuropathic pain syndromes , her pain is multifactorial in origin, including failed back syndrome, peripheral neuropathy, carpal tunnel syndrome, osteoarthritis, and phantom leg pain. She is currently on Lyrica 100 mg 3 times a day, we have decreased her oxycodone to 5 mg 3 times daily, she is only needed at the most one oxycodone for breakthrough pain. She is receiving Biofreeze for her hand and stump, and decreased her tizanidine from 4 times a day to 3 times a day. Patient continues to report fairly high levels of distress, but her pain behaviors are usually rocking and rubbing, she does perceive the Lyrica is helping with some of her sharp shooting pain. Her area of most distress at this point in time is her right hand, she is awaiting a referral to a hand surgeon, for possible release of her carpal tunnel. She is much more bright, interactive, does not show any signs of previous lethargy, she is feeling much better and clearer in her mind, and is feeling much more positive today. She does not appear anxious nor with paranoia today Social History - Living Situation Living arrangement: longterm Support System: Patient somewhat estranged from children; has mental health services through [facility] Medications/Allergies - Medications Home Medications: Ambulatory Orders Medication Instructions Recorded Confirmed Aspirin Chewable [St Flavio 81 mg PO DAILY 09/29/13 10/23/17 Aspirin] Docusate Sodium 500 mg PO BID 09/29/13 10/23/17 Omeprazole [PriLOSEC] 20 mg PO DAILY 09/29/13 10/23/17 diltiaZEM CD [Cardizem Cd] 240 mg PO BID 09/29/13 10/23/17 Multivitamin [Multivitamins] 1 each PO DAILY 06/06/14 10/23/17 Potassium Chloride 20 meq PO DAILY 06/06/14 10/23/17 Losartan [Cozaar] 100 mg PO DAILY 02/14/17 10/23/17 QUEtiapine [SEROquel] 300 mg PO QPM 02/14/17 10/23/17 Senna [Senokot] 17.2 mg PO BID 02/14/17 10/23/17 diphenhydrAMINE [Benadryl] 25 mg PO DAILY PRN 02/14/17 10/23/17 tiZANidine [Zanaflex] 4 mg PO TID 02/14/17 10/23/17 DULoxetine [Cymbalta] 120 mg PO DAILY 02/19/17 10/23/17 Furosemide [Lasix] 40 mg PO BID 04/25/17 10/23/17 Acetaminophen 500 mg PO Q6HR PRN 10/06/17 10/23/17 Albuterol 1 inh NEB Q4HR PRN 10/06/17 10/23/17 Meclizine HCl [Motion Sickness 25 mg PO BID PRN 10/06/17 10/23/17 Relief] Melatonin 3 mg PO ACHS 10/06/17 10/23/17 Polyethylene Glycol 3350 [Miralax] 17 gm PO DAILY 10/06/17 10/23/17 Pregabalin [Lyrica] 100 mg PO TID 10/06/17 10/23/17 Saccharomyces Boulardii [Florastor] 250 mg PO BID MDD finished 10/2210/06/17 oxyCODONE/ACET 5/325 [Percocet 5 5 mg PO TID 10/06/17 10/23/17 mg/325 mg] oxyCODONE [Roxicodone] 5 mg PO TID PRN 10/14/17 10/23/17 - Allergies Allergies/Adverse Reactions: Allergies Allergy/AdvReac Type Severity Reaction Status Date / Time erythromycin base Allergy Severe Anaphylaxis Verified 10/04/17 18:27 [Erythromycin Base] Penicillins Allergy Severe Anaphylaxis Verified 10/04/17 18:27 Sulfa (Sulfonamide Allergy Severe Redness/High Verified 10/04/17 18:27 Antibiotics) fever lisinopril Allergy Unknown Unknown Verified 10/04/17 18:27 ceftriaxone Allergy Rash Verified 10/04/17 18:27 quinidine Allergy Rash Verified 10/04/17 18:27 Review of Systems - Constitutional Constitutional: reports: Fatigue (less lethargic feeling better and more alert) , Weight loss (unknown etiology; patient reports no change in amount/appetite/ or symptoms of nausea/GERD Weight 194.2 10/11; 10/08 200) - Eyes Eyes: reports: Vision loss, Corrective lenses - Ears, Nose & Throat Ears, Nose & Throat: reports: Hearing loss (mild), Dental decay (had dentist appointment that reports is helping; got fillings replaced and has follow up again at [facility]) - Cardiovascular Cardiovascular: denies: Chest pain, Lightheadedness (no further episodes) - Respiratory Respiratory: reports: SOB with exertion. denies: Cough - Gastrointestinal Gastrointestinal: reports: Other (some loose stools; has held occasionally when going out; pleased though without constipation). denies: Abdominal pain - Genitourinary Genitourinary: reports: Other (suprapubic catheter finishing antibiotics) - Musculoskeletal Musculoskeletal: reports: Back pain, Limited range of motion, Muscle weakness, Transfer issues (in wheelchair/more difficulty with mobililty because of carpal tunnle and pain) - Integumentary Integumentary: reports: Dryness - Neurological Neurological: reports: Memory problems (difficulty tracking most problems at times; very engaged and participatory today) - Psychiatric Psychiatric: reports: Depression (reports feeling good today;) - Endocrine Endocrine: reports: Diabetes type 2 - Hematologic/Lymphatic Hematologic/Lymphatic: reports: Recurrent infections (UTIs, finishing tx; has follow up with ID MD) - All Other Systems All Other Systems: reports: Reviewed and negative Physical Exam - Vital Signs Temperature: 97.2 C Pulse Rate: 60 Respiratory Rate: 18 O2 Saturation: 99 (ra @ rest) Blood Pressure: 112/72 - Physical Exam General Appearance: positive: No acute distress, Alert Eyes Bilateral: positive: Normal inspection ENT: positive: No signs of dehydration Neck: positive: No JVD, Trachea midline Cardiovascular: positive: Regular rate & rhythm Respiratory: positive: Breath sounds nml Abdomen: positive: Non-tender, Soft Skin: positive: Pallor, Dryness Extremities: positive: Pedal edema (trace right leg; AKA left), Other (right hand with tenderness with touch palpation; awaiting appointment with hand surgeon;) Neurologic/Psychiatric: positive: Mood/affect nml, Disoriented to time Palliative Care - POLST Patient has POLST: Yes POLST Status: DNR, Comfort Measures Pain: Pain improved, Location (baseline back pain unchanged but not worsening; sharp shooting down left hip in phantom "leg"; sharp shooting pain in shoulders/ down arms into right hand and fingers; still finding biofreeze helpful; on lyrica 100 mg TID; oxycodone 5 mg TID; using one extra dose in evening usually;) Tiredness/Fatigue: Moderate (4-6) Drowsiness/Sedation: Mild (1-3) Nausea: None Depression: Mild (1-3) Anxiety: Mild (1-3) Anorexia: None Sleep: Variable sleep pattern Constipation: Yes, Opoid induced, Managed Feelings of wellbeing/Perceived Quality of Life: Good, Acceptable, Improved Performance Status: Patient able to self transfer in room from wheelchair to bed, she does roll herself around the facility, but this does increase her pain with her carpal tunnel and increased shoulder pain. She is dependent for bathing, but does her own dressing and oral care. She tends to isolate herself in the room. Including taking meals. - Palliative Care Discussion: Patient bright and engaged today, we did review her pain but with less distress. We revisited the conversation around healthcare proxy, had left her information regarding choosing one. He does not want to engage her local daughter, she would trust her youngest daughter. She reports her youngest daughter has too much on her plate. We did discuss again in the context of the role of the health proxy, is that it would only come into play if she were seriously ill and unable to speak for herself. That it would not "be a bother" at this point in time, it would be of voice when she is unable to make choices for herself. This seemed to be somewhat of a relief for her, and she is willing to revisit this and discuss with her younger daughter. We also reviewed the next step in this context, which would be to provide more clear direction which is acceptable or not acceptable for her as far as treatment and what she might want her not want in a future sense. She was quite interested in continuing to pursue defining these further. She does have a POLST in place with DNAR and Comfort Measures, she doesn't want to go back to [facility], but this is not specific to hospitalization but to her distress with her experiences. Impression and Recommendations - Palliative Care Impression: This is a complicated 72-year-old woman has long-standing chronic health issues , she has a multifactorial chronic pain syndrome, with ongoing mental health issues add to the challenge for assessment and treatment. Palliative care to provide support for pain and symptom management and evaluation for addressing quality of life issues and further defining goals of care. Recommendations/Counseling Done: 1. Chronic pain syndrome. Patient on Lyrica 100 mg 3 times a day, This continues to be an appropriate medication given the contingency of her neuropathic pain. We will continue the Biofreeze as this does appear to provide her a tangible intervention, and does perceive it does help. She has tolerated the decrease in oxycodone to 5 mg 3 times a day, uses oxycodone less than 1 time a day for breakthrough pain. No increase in back spasms with the tizanidine to 3 times a day, she has had a huge improvement in her baseline level of lethargy and sedation. Have followed up with staff cannot find if patient is currently scheduled for hand surgeon, will get name of referral source and follow-up to that avenue. Her right hand seems again to be her biggest source of distress at this point in time, patient would benefit from follow through on options. Patient's pain most likely good exacerbated by her use of Her wheelchair, this does actually limit her willingness to go out and engage in activities are in the facility, follow-up regarding appropriateness of electric wheelchair. This does require OT evaluation for cognitive eval and appropriateness, as well as a fairly long process and obtaining, I do not believe patient's going to be able particular she has surgery manage a manual wheelchair long-term. 2. Depression. Patient presents is quite interactive and engaged today, does have some perseverations on negative experiences, but does not present with paranoia during conversation. She did very much enjoy the visit with the palliative care industrial nurse, I would like to continue that support. 3. Constipation. Patient reports bowels moving regularly, she has held her senna couple times for chips out. She does not want any changes to her current bowel program. 4. Advanced care planning. Continue counseling regarding healthcare proxy and documenting goals of care, patient does seem willing and it would be appropriate to move forward on this. Will do this and a gentle manner given her fluctuating mood status. Time Spent: 60 minutes with greater than 50% of this done in counseling regarding pain and symptom management, coordination of care and follow-up with therapy regarding ability to get electric wheelchair, wheelchair cushion has come in they will deliver, counseling for advanced directives
== END 2017-10-21 11:01 | disposition home or self-care (01) ==
LOC: PC 11:00
PROVIDERS: ATTEND Nurse Practitioner Adult Health
DX: Z51.5 Encounter for palliative care (principal); G89.4 Chronic pain syndrome; F32.9 Major depressive disorder, single episode, unspecified; F20.9 Schizophrenia, unspecified; E11.40 Type 2 diabetes mellitus with diabetic neuropathy, unspecified; Z96.0 Presence of urogenital implants; Z79.82 Long term (current) use of aspirin; Z79.891 Long term (current) use of opiate analgesic; M62.81 Muscle weakness (generalized); Z89.612 Acquired absence of left leg above knee; G54.6 Phantom limb syndrome with pain; Z66 Do not resuscitate
CPT/HCPCS: 99310

== ENCOUNTER 2017-10-28 11:15 | Outpatient (CLI) | payer MEDICARE, MEDICAID ==
--- NOTE | 2017-10-28 17:59 | CONSULTATION NOTE ---
Palliative Care Follow Up - Referral Referring Provider: Dr. Lorenzo Washington Time of Visit: 0801-4028 Referral setting: [facility] Referral Reason: Neuropathic pain/Goals of Care - Information Sources Records reviewed: RN notes reviewed, Previous records reviewed History/Review of Systems obtained from: Patient, Caregiver (clinical staff) Exam limitations: Clinical condition (patient with underlying depression/ schizophrenia/STM issues) - History of Present Illness Update Brief HPI Update: This is a complicated 72-year-old woman with a long list of comorbidities, including schizophrenia and depression. She is supported by [facility] services. She also has hypertension, asthma, headaches, peripheral neuropathy, type 2 diabetes, GERD, chronic bladder infections, history of kidney stones, suprapubic Reyes catheter, poor dentition, osteoarthritis, phantom limb pain, venous stasis in her right leg, and now carpal tunnel syndrome. Palliative care is seen patient in follow-up for her neuropathic pain syndromes , her pain is multifactorial in origin, including failed back syndrome, peripheral neuropathy, carpal tunnel syndrome, osteoarthritis, and phantom leg pain. This is exacerbated by increased activity, she is in a manual wheelchair with exacerbation of her shoulder, neck, and carpal tunnel with needing to manipulate and transfers. She is awaiting follow-up with the word processing specialist hand surgeon. She currently is on Lyrica 100 mg 3 times a day, oxycodone 5 mg 3 times a day with oxycodone 5 mg for breakthrough up to 3 times a day. She is receiving Biofreeze for her hand and stump and tizanidine 3 times a day for her back spasms. Patient still continues to have significantly reported high pain behaviors, but does seem to be able to tolerate this currently. During our last 2 visits she has not demonstrated any of her pain behaviors which usually are rocking and wrapping. These do provide self soothing for her. She is much more alert, interactive, and cooperative. She does have fluctuating mood, but does present today without apparent not only though does have some perseverating, but is engaged in interaction. Social History - Living Situation Living arrangement: residential Support System: Patient does have 3 daughters currently alive, one has passed. She is fairly estranged per her report. She does report her daughter though does not identify which one, calls infrequently for reports from the nurses station. She does have mental health services, and mostly relies on staff for social interaction. Medications/Allergies - Medications Home Medications: Ambulatory Orders Medication Instructions Recorded Confirmed Aspirin Chewable [St Flavio 81 mg PO DAILY 09/29/13 10/28/17 Aspirin] Docusate Sodium 250 mg PO BID 09/29/13 10/28/17 Omeprazole [PriLOSEC] 20 mg PO DAILY 09/29/13 10/28/17 diltiaZEM CD [Cardizem Cd] 240 mg PO BID 09/29/13 10/28/17 Multivitamin [Multivitamins] 1 each PO DAILY 06/06/14 10/28/17 Potassium Chloride 20 meq PO DAILY 06/06/14 10/28/17 Losartan [Cozaar] 100 mg PO DAILY 02/14/17 10/28/17 QUEtiapine [SEROquel] 300 mg PO QPM 02/14/17 10/28/17 Senna [Senokot] 17.2 mg PO DAILY 02/14/17 10/28/17 diphenhydrAMINE [Benadryl] 25 mg PO DAILY PRN 02/14/17 10/28/17 tiZANidine [Zanaflex] 4 mg PO TID 02/14/17 10/28/17 DULoxetine [Cymbalta] 120 mg PO DAILY 02/19/17 10/28/17 Furosemide [Lasix] 40 mg PO BID 04/25/17 10/28/17 Acetaminophen 500 mg PO Q6HR PRN 10/06/17 10/28/17 Albuterol 1 inh NEB Q4HR PRN 10/06/17 10/28/17 Meclizine HCl [Motion Sickness 25 mg PO BID PRN 10/06/17 10/28/17 Relief] Melatonin 3 mg PO ACHS 10/06/17 10/28/17 Polyethylene Glycol 3350 [Miralax] 17 gm PO DAILY 10/06/17 10/28/17 Pregabalin [Lyrica] 100 mg PO TID 10/06/17 10/28/17 oxyCODONE/ACET 5/325 [Percocet 5 5 mg PO TID 10/06/17 10/28/17 mg/325 mg] oxyCODONE [Roxicodone] 5 mg PO TID PRN 10/14/17 10/28/17 - Allergies Allergies/Adverse Reactions: Allergies Allergy/AdvReac Type Severity Reaction Status Date / Time erythromycin base Allergy Severe Anaphylaxis Verified 10/04/17 18:27 [Erythromycin Base] Penicillins Allergy Severe Anaphylaxis Verified 10/04/17 18:27 Sulfa (Sulfonamide Allergy Severe Redness/High Verified 10/04/17 18:27 Antibiotics) fever lisinopril Allergy Unknown Unknown Verified 10/04/17 18:27 ceftriaxone Allergy Rash Verified 10/04/17 18:27 quinidine Allergy Rash Verified 10/04/17 18:27 Review of Systems - Constitutional Constitutional: reports: Fatigue, Weight stable (195) - Eyes Eyes: reports: Vision loss, Corrective lenses - Ears, Nose & Throat Ears, Nose & Throat: reports: Dental decay, Dry mouth - Cardiovascular Cardiovascular: reports: Edema (reports had edema in RLL yesterday). denies: Chest pain, Lightheadedness - Respiratory Respiratory: denies: SOB at rest - Gastrointestinal Gastrointestinal: reports: Good appetite, Other (patient going 1-2 x a day; distressed with oozing and difficulty with pericare; had been c/o constipation; would like bowel program adjusted again). denies: Nausea - Genitourinary Genitourinary: reports: Other (s/p catheter) - Musculoskeletal Musculoskeletal: reports: Muscle pain, Back pain, Muscle aches, Stiffness, Limited range of motion, Muscle weakness, Transfer issues (uses wheelchair; manually wheeling exacerbates pain of hands) - Integumentary Integumentary: reports: Dryness - Neurological Neurological: reports: Memory problems (STM has poor recall) - Psychiatric Psychiatric: reports: Depression (being seen by [facility]; reports controlled) - Endocrine Endocrine: reports: Diabetes type 2 - Hematologic/Lymphatic Hematologic/Lymphatic: reports: Recurrent infections (UTIs) - All Other Systems All Other Systems: reports: Reviewed and negative Physical Exam - Vital Signs Temperature: 96.9 C Pulse Rate: 64 Respiratory Rate: 18 O2 Saturation: 96 (ra @ rest) Blood Pressure: 122/84 - Physical Exam General Appearance: positive: No acute distress, Alert. negative: Lethargic Eyes Bilateral: positive: Normal inspection ENT: positive: No signs of dehydration Neck: positive: No JVD, Trachea midline Cardiovascular: positive: Regular rate & rhythm Respiratory: positive: Breath sounds nml Abdomen: positive: Non-tender, Soft Skin: positive: Pallor, Dryness Extremities: positive: No pedal edema Neurologic/Psychiatric: positive: Oriented x3, Mood/affect nml Palliative Care - POLST Patient has POLST: Yes POLST Status: DNR, Comfort Measures (see palliative care discussion) Pain: Pain unchanged, Location (see HPI) Tiredness/Fatigue: Moderate (4-6) Drowsiness/Sedation: Mild (1-3) Nausea: None Depression: Mild (1-3) Anxiety: Mild (1-3) Dyspnea: Mild (1-3) Anorexia: None Sleep: Variable sleep pattern Constipation: Yes, Opoid induced, Unmanaged (Reports frequent stooling a couple times a day, most distressed as it is soft and difficult for her to manage as she does toilet independently he reports "oozng".) Feelings of wellbeing/Perceived Quality of Life: Fair, Acceptable, No change Performance Status: Patient is dependent for bathing, she does do her own personal care as far as toileting and grooming. She is able to independently transfer, though this is source of increased pain, she can manually to her wheelchair but this is limited again by her carpal tunnel and exacerbates this. She is being evaluated for electric wheelchair to improve her mobility is at also decrease her pain exacerbations. - Palliative Care Discussion: Revisited the question of healthcare proxy. She did complete the reading for her healthcare proxy and feels again that she cannot ask her daughters to do this. We did discuss by default it would be left to her daughter's to make any end-of-life decision-making for her, he does not want to burden them with this, and she does in her mind mix this up somewhat with taking less interest in her and their estrangement. She does believe they would make a good decision if needed. Patient does have a DAMASO ST in place completed with Dr. Luong in April 2017. She is somewhat vacillating whether she would return back to the hospital or not, she does have comfort measures, it does appear given her underlying mental health issues she is distressed with [facility] and perseverating on her last visit there. She reports she will go back to the old wing not the new wing. Reviewed there is no longer an old wing. We did review given her urologist is up at both [facility], if she did go to the ED related to her urologic issues she could request a transfer. She does understand she has to be stabilized at [facility] though this is somewhat distressing to her. In discussing further what would be acceptable quality of life, she would not want to be more dependent, if she had a condition that this would be outcome, she would want her family to let her go. If she had a stroke she would not want tube feedings or further intervention or support regarding to extend her life, and if she were to be not of her "right mind" and unable to make decisions or know where she is this would not be defined as quality of life either. She does present with limited health literacy, for simple decisions she may be able to participate for weighing benefits and burdens for medical decision- making, but more complex she would be very challenged. But in the context of decision making her shared decision making, any further decline in independence , or further cognitive decline, or prolonging suffering are expressed values for her that would not be acceptable quality of life. Impression and Recommendations - Palliative Care Impression: This is a complex 72-year-old woman has long-standing chronic health issues, most recently with an exacerbation regarding to her chronic pain syndrome, she also has ongoing mental health issues adding to the challenge for assessment and treatment. Patient's pain currently appears fairly stable, awaiting outcome of word processing specialist regarding her carpal tunnel syndrome prior to any further adjustments. Palliative care to provide support for pain and symptom management, adjusting quality of life issues, and continue further defining goals of care. Recommendations/Counseling Done: 1.Chronic pain syndrome. Patient currently on Lyrica 100 mg 3 times a day, this continues to be an appropriate medication given the contingency of her neuropathic pain. She does receive Biofreeze providing her intermittent relief , with medication adjustments her lethargy has improved. Still awaiting appointment for hand surgeon, and outcome of OT evaluation for appropriateness for electric wheelchair. 2. Constipation. Patient reports distress with loose bowels. Did address medications, with decrease in opioid overall load and discontinue of Sucralfate can titrate medications down. Senna 8.6 mg decreased to 2 tabs daily, and decrease 2 cassettes sodium from 500 mg twice daily to 250 mg twice daily 3. Depression. Patient continues with fluctuating mood, can act out quite easily with staff, does feel quite isolated. She is getting support from [facility]. She did enjoy the visit from the palliative care pole lift operator, will continue with this. Patient also wants to be more participatory in her care plan, agreed to provide her and instructed on her current medication list. Simple instructions and list provided for patient's feelings of lack of control. 4. Advanced care planning. Patient is unable to identify a healthcare proxy, have not been able to move forward in this area. By default it will fall to her daughters, and she is actually very passive about this, but does not want to pick one over the other. She does have a DAMASO ST in place, does present with being able to express her values, but more complex decision making will need to be done in the context of shared decision or with healthcare proxy if she is unable to participate. She would like to start to explore actually end-of-life plans as far as cremation and plans. Will follow up with social secretary regarding assistance available for this. Time Spent: 60 minutes with good than 50% of this done in counseling regarding opioids, constipation, and medication adherence/education. Anticipatory guidance and exploration of goals of care. Patient currently balanced as far as lethargy and pain relief, she is always going to be less than satisfied, need further follow-up regarding her carpal tunnel syndrome. Will start to expand visits to every 3-4 weeks unless exacerbation or other issues arise.
== END 2017-10-28 11:16 | disposition home or self-care (01) ==
LOC: PC 11:15
PROVIDERS: ATTEND Nurse Practitioner Adult Health
DX: Z51.5 Encounter for palliative care (principal); G89.4 Chronic pain syndrome; F32.9 Major depressive disorder, single episode, unspecified; F20.9 Schizophrenia, unspecified; I10 Essential (primary) hypertension; E11.42 Type 2 diabetes mellitus with diabetic polyneuropathy; G54.6 Phantom limb syndrome with pain; G56.00 Carpal tunnel syndrome, unspecified upper limb; M19.90 Unspecified osteoarthritis, unspecified site; M62.830 Muscle spasm of back; K59.03 Drug induced constipation; T40.2X5A Adverse effect of other opioids, initial encounter; Z66 Do not resuscitate; Z99.3 Dependence on wheelchair; Z79.899 Other long term (current) drug therapy
CPT/HCPCS: 99310

== ENCOUNTER 2017-11-18 11:00 | Outpatient (CLI) | payer MEDICARE, MEDICAID ==
--- NOTE | 2017-11-18 21:39 | CONSULTATION NOTE ---
Palliative Care Follow Up - Referral Referring Provider: Dr. Lorenzo Washington Time of Visit: Referral setting: [facility] Facility Referral Reason: Chronic Pain Syndrome/GERD - Information Sources Records reviewed: Previous records reviewed History/Review of Systems obtained from: Patient Exam limitations: Clinical condition (patient with mild cognitive deficits; STM issues; able to participate in visit and interact) - History of Present Illness Update Brief HPI Update: This is a complicated 72-year-old woman with a long list of comorbidities, including schizophrenia and depression. She is supported by [facility] services. She also has hypertension, asthma, headaches, peripheral neuropathy, type 2 diabetes, GERD, chronic bladder infections, history of kidney stones, suprapubic Reyes catheter, poor dentition, osteoarthritis, phantom limb pain, venous stasis in her right leg, CKD Stage 4, and now carpal tunnel syndrome. Palliative care is seen patient in follow-up for her neuropathic pain syndromes , her pain is multifactorial in origin, including failed back syndrome, peripheral neuropathy, carpal tunnel syndrome, osteoarthritis, and phantom leg pain. This is exacerbated by increased activity, she is in a manual wheelchair with exacerbation of her shoulder, neck, and carpal tunnel with needing to manipulate and transfers. She was awaiting follow-up with the auto adjudication specialist hand surgeon, unfortunately her transportation got her late to her appointment and she had to reschedule for 11/24 She currently is on Lyrica 100 mg 3 times a day, oxycodone 5 mg 3 times a day with oxycodone 5 mg for breakthrough up to 3 times a day. She is receiving Biofreeze for her hand and stump for sensation of burning and tingling; and tizanidine 3 times a day for her back spasms. Patient still continues to have significantly reported high pain behaviors, but does seem to be able to tolerate this currently. She uses the BTP dosing several times a week, but are days with none. She is much more alert, interactive, she is somewhat irritable today with multiple complaints. She does have fluctuating mood, but is engaged and cooperative today. A new complaint for her today, is increase in her GERD over the last week, denies it is connected to eating or timing of food intake, most severe in the evening. She is on omeprazole in the AM, she also reports episode of choking unwitnessed, on a pill a few days ago, do no appear connected, but are in her mind. No baseline nausea, abdominal pain, happy with current bowel regimen, going regularly. A second is she has had a MDI in the past related to her asthma , she felt wheezy for a few days and didn't want the nebulizzer, will order PRN. Social History - Living Situation Living arrangement: shelter Living Situation: Alone Support System: reports daughter visited with the "grandkids" for a meal; unable to discern if this was supportive or not; did like visiting with the grandkids. Medications/Allergies - Medications Home Medications: Ambulatory Orders Medication Instructions Recorded Confirmed Aspirin Chewable [St Flavio 81 mg PO DAILY 09/29/13 11/19/17 Aspirin] Docusate Sodium 250 mg PO BID 09/29/13 11/19/17 Omeprazole [PriLOSEC] 20 mg PO BID MDD For one month 09/29/13 11/19/17 diltiaZEM CD [Cardizem Cd] 240 mg PO BID 09/29/13 11/19/17 Multivitamin [Multivitamins] 1 each PO DAILY 06/06/14 11/19/17 Potassium Chloride 20 meq PO DAILY 06/06/14 11/19/17 Losartan [Cozaar] 100 mg PO DAILY 02/14/17 11/19/17 QUEtiapine [SEROquel] 300 mg PO QPM 02/14/17 11/19/17 Senna [Senokot] 17.2 mg PO DAILY 02/14/17 11/19/17 diphenhydrAMINE [Benadryl] 25 mg PO DAILY PRN 02/14/17 11/19/17 tiZANidine [Zanaflex] 4 mg PO TID 02/14/17 11/19/17 DULoxetine [Cymbalta] 120 mg PO DAILY 02/19/17 11/19/17 Furosemide [Lasix] 40 mg PO BID 04/25/17 11/19/17 Acetaminophen 500 mg PO Q6HR PRN 10/06/17 11/19/17 Meclizine HCl [Motion Sickness 25 mg PO BID PRN 10/06/17 11/19/17 Relief] Melatonin 3 mg PO QPM 10/06/17 11/19/17 Polyethylene Glycol 3350 [Miralax] 17 gm PO DAILY 10/06/17 11/19/17 Pregabalin [Lyrica] 100 mg PO TID 10/06/17 11/19/17 oxyCODONE/ACET 5/325 [Percocet 5 5 mg PO TID 10/06/17 11/19/17 mg/325 mg] oxyCODONE [Roxicodone] 5 mg PO TID PRN 10/14/17 11/19/17 Albuterol Sulfate [Proair Hfa 2 puffs INH Q4HR MDD four times 11/19/17 11/19/17 Inhaler] - Allergies Allergies/Adverse Reactions: Allergies Allergy/AdvReac Type Severity Reaction Status Date / Time erythromycin base Allergy Severe Anaphylaxis Verified 10/04/17 18: [Erythromycin Base] Penicillins Allergy Severe Anaphylaxis Verified 10/04/17 18:27 Sulfa (Sulfonamide Allergy Severe Redness/High Verified 10/04/17 18:27 Antibiotics) fever lisinopril Allergy Unknown Unknown Verified 10/04/17 18:27 ceftriaxone Allergy Rash Verified 10/04/17 18:27 quinidine Allergy Rash Verified 10/04/17 18:27 Review of Systems - Constitutional Constitutional: reports: Fatigue, Weight loss (194 lost another pound; reports eating good amounts). denies: Fever, Chills - Eyes Eyes: reports: Vision loss, Corrective lenses - Ears, Nose & Throat Ears, Nose & Throat: reports: Hearing loss (mild), Postnasal drainage, Dental decay, Dental pain, Dry mouth - Cardiovascular Cardiovascular: reports: Exertional dyspnea. denies: Chest pain - Respiratory Respiratory: denies: SOB at rest, SOB with exertion - Gastrointestinal Gastrointestinal: reports: Constipation (improved BM feels current regimen good) , Reflux/heartburn (reports moderate and uncomfortable in the evening; new last few days-feels distressed with this; attributes to time of "choking" on a pill and worsened), Good appetite. denies: Nausea - Genitourinary Genitourinary: reports: Other (suprapubic catheter c/o pain at exit site) - Musculoskeletal Musculoskeletal: reports: Stiffness, Limited range of motion (right hand pain limits abililty to wheel chair), Muscle weakness, Transfer issues (depending on pain and strength able to Independently transfer w/c to bed with trapeze and sliding) - Integumentary Integumentary: reports: Dryness - Neurological Neurological: reports: Headache (occasional), Memory problems, Slurred speech ( difficult with dental issues) - Psychiatric Psychiatric: reports: Depression (feels currently controlled), Delusions (freq c /o related to staff and interactions) - Endocrine Endocrine: reports: Diabetes type 2, Hypothyroidism - Hematologic/Lymphatic Hematologic/Lymphatic: reports: Recurrent infections (hx of UTIs) - All Other Systems All Other Systems: reports: Reviewed and negative Physical Exam - Vital Signs Temperature: 97.6 C Pulse Rate: 80 Respiratory Rate: 18 O2 Saturation: 95 (ra @ rest) Blood Pressure: 138/78 - Physical Exam General Appearance: positive: No acute distress, Alert Eyes Bilateral: positive: Normal inspection ENT: positive: Dry mucous membranes, Other (poor dentition) Neck: positive: Trachea midline Respiratory: positive: Diminished in bases. negative: Wheezes Abdomen: positive: Non-tender, Soft, Nml bowel sounds Skin: positive: Pallor, Dryness, Other (right leg with dull venous stasis scarring; exit site of Supra pubic tucked in skin fold with 0.5 cm skin tag of granulating tissue; is tender; would need to be silver nitrated off-not interested at this point) Extremities: positive: Pedal edema (slight to RLE; sits dependent most of day) Neurologic/Psychiatric: positive: Oriented x3, Mood/affect nml Palliative Care - POLST Patient has POLST: Yes POLST Status: DNR, Comfort Measures Pain: Pain improved (see HPI) Tiredness/Fatigue: Moderate (4-6) Drowsiness/Sedation: Mild (1-3) Nausea: None Depression: Mild (1-3) Anxiety: Mild (1-3) Dyspnea: Mild (1-3) Anorexia: None Sleep: Variable sleep pattern (reports slept well last couple of nights; helps "her mood") Constipation: Yes, Opoid induced, Managed - Palliative Care Discussion: Patient reports she had seen her daughter, it sounds like they were there for November. She reports she did broach the topic of if she knew what patient's wishes would be if she got sick, reports that her daughter did not have any response. Unclear exactly the legitimacy of this conversation, offered to have a conversation with her daughter, but not sure which daughter had been visiting. Patient continues with multiple different avenues of support , but remains quite unhappy with her current situation. Denies any increase or concern regarding her pain, has been fairly stable as far as her mental health issues, and is looking forward to follow-up from the palliative care stock preparation operator. Impression and Recommendations - Palliative Care Impression: This is a complex 72-year-old woman with long-standing chronic health issues, she has chronic pain syndrome, awaiting appointment regarding her carpal tunnel syndrome. Through an unfortunate event, this had to be rescheduled. Currently her pain appears fairly stable, and sedation much improved. Palliative care continued to address long-term advanced care planning issues, as well as support patient through her neuropathic pain, focus on quality of life issues. Recommendations/Counseling Done: 1. Chronic pain syndrome. Patient currently on Lyrica 100 mg 3 times a day, she is using the Biofreeze providing her intermittent relief, as well as oxycodone 5 mg 3 times daily. Duloxetine for depression with added efficacy for chronic pain syndrome and tizinadine for back spasms. Awaiting final conversation with hand surgeon to address carpal tunnel syndrome. No medication changes at this point in time. 2. Constipation patient happy with her current medication adjustments, going on a regular basis without difficulty. 3. Depression. Patient continues with fluctuating mood, can act out easily with staff continues to feel somewhat isolated and can be perseverative. Redirected several times during our conversation. 4. Advanced care planning. Difficulty moving forward in this area, patient unable to identify person gallop which daughter. She reports she did have a conversation with 1, does not appear to have been fruitful. She does have a DAMASO ST in place, she would like to start explore end-of-life plans as cremation and . Time Spent: 45 minutes with greater than 50% of this reviewing medications and counseling regarding symptom management and pain as well as anticipatory guidance and coordination with staff
== END 2017-11-18 11:01 | disposition home or self-care (01) ==
LOC: PC 11:00
PROVIDERS: ATTEND Nurse Practitioner Adult Health
DX: Z51.5 Encounter for palliative care (principal); G89.4 Chronic pain syndrome; M54.9 Dorsalgia, unspecified; R25.2 Cramp and spasm; G54.6 Phantom limb syndrome with pain; G56.00 Carpal tunnel syndrome, unspecified upper limb; K59.03 Drug induced constipation; T40.2X5D Adverse effect of other opioids, subsequent encounter; F32.9 Major depressive disorder, single episode, unspecified; K21.9 Gastro-esophageal reflux disease without esophagitis; J45.909 Unspecified asthma, uncomplicated; L91.8 Other hypertrophic disorders of the skin; Z93.51 Cutaneous-vesicostomy status; F20.9 Schizophrenia, unspecified; E11.42 Type 2 diabetes mellitus with diabetic polyneuropathy; I12.9 Hypertensive chronic kidney disease with stage 1 through stage 4 chronic kidney disease, or unspecified chronic kidney disease; E11.22 Type 2 diabetes mellitus with diabetic chronic kidney disease; N18.4 Chronic kidney disease, stage 4 (severe); Z99.3 Dependence on wheelchair; Z79.899 Other long term (current) drug therapy; Z79.891 Long term (current) use of opiate analgesic; Z87.440 Personal history of urinary (tract) infections; Z66 Do not resuscitate; Z89.619 Acquired absence of unspecified leg above knee
CPT/HCPCS: 99310

== ENCOUNTER 2017-12-18 17:20 | Outpatient (CLI) | payer MEDICARE, MEDICAID ==
[2017-12-18 19:39] LABS: BASOPHILS % (AUTO) 0.5 %; EOSINOPHILS # (AUTO) 0.5 10^3/uL (0.0-0.7); HGB - HEMOGLOBIN 11.9 g/dL (12.0-16.0); LYMPHOCYTES # (AUTO) 2.6 10^3/uL (1.5-3.5); LYMPHOCYTES % (AUTO) 44.5 %; MEAN CORPUSCULAR HEMOGLOBIN 26.7 pg (27.0-31.0); MEAN CORPUSCULAR HGB CONC 32.3 g/dL (32.0-36.0); MEAN CORPUSCULAR VOLUME 82.5 fL (81.0-99.0); MEAN PLATELET VOLUME 9.1 fL (7.9-10.8); MONOCYTES # (AUTO) 0.7 10^3/uL (0.0-1.0); MONOCYTES % (AUTO) 11.2 %; NEUTROPHILS # (AUTO) 2.1 10^3/uL (1.5-6.6); NEUTROPHILS % (AUTO) 35.8 %; PLT - PLATELET COUNT 246 10^3/uL (130-450); RED BLOOD COUNT 4.47 10^6/uL (4.20-5.40); RED CELL DISTRIBUTION WIDTH 14.3 % (12.0-15.0); WHITE BLOOD COUNT 5.9 x10^3/uL (4.8-10.8)
[2017-12-18 19:58] LABS: HB2 TOTAL 12.4 g/dL; HEMOGLOBIN A1C 0.5 g/dL; HEMOGLOBIN A1C % 5.8 % (4.6-6.2)
[2017-12-18 20:02] LABS: ALBUMIN 3.7 g/dL (3.2-5.5); ALBUMIN/GLOBULIN RATIO 0.9 (1.0-2.2); BILIRUBIN,TOTAL 0.6 mg/dL (0.2-1.0); CREATININE 1.2 mg/dL (0.4-1.0); MAGNESIUM 2.4 mg/dL (1.7-2.8)
== END 2017-12-18 17:21 | disposition home or self-care (01) ==
LOC: LAB.R 17:20
DX: E87.8 Other disorders of electrolyte and fluid balance, not elsewhere classified (principal); E11.9 Type 2 diabetes mellitus without complications
CPT/HCPCS: 80053; 83036; 83735; 83880; 85025

== ENCOUNTER 2017-12-24 10:40 | Outpatient (CLI) | payer MEDICARE, MEDICAID ==
--- NOTE | 2017-12-24 20:49 | CONSULTATION NOTE ---
Palliative Care Follow Up - Referral Referring Provider: Dr. Lorenzo Washington Time of Visit: 9252-4672 Referral setting: Residential Facility Referral Reason: Neuropathic Pain Syndrome - Information Sources Records reviewed: Previous records reviewed History/Review of Systems obtained from: Patient Exam limitations: Clinical condition (patient with STM issues; underlying Schizophrenia) - History of Present Illness Update Brief HPI Update: This is a complicated 72-year-old woman with a long list of comorbidities including but not limited to schizophrenia, depression, asthma, hypertension, peripheral neuropathy, GERD, poor dentition, osteoarthritis, phantom limb pain, venous stasis in her right leg, CKD stage IV, carpal tunnel syndrome, and chronic pain syndrome. Patient had actually been doing fairly well short-term on her Lyrica 100 mg 3 times daily (max dose crcl 58.3) , oxycodone 5 mg 3 times daily with oxycodone 5 mg for breakthrough up to 3 times a day. She was receiving Biofreeze which she continues for hand and stump sensation of burning and tingling, and tizanidine 3 times a day for back spasms. And given her escalating pain complaints and pain behaviors, did try to switch up to hydrocodone 10 mg/325 mg for breakthrough pain. Patient was using this on an average of 1-2 times a day. There was an increase to 1.5 mg a few days ago, unclear the underlying reason for this, again given patient's low use of breakthrough pain medication. Patient though does present severe pain 8-9/10, rocking behaviors and most specifically in her stump. She also reports bilateral she will pain and pressure, she has been instructed to do more time in bed and relieve the pain pressure off of her hips and back. She does report she is noncompliant with this at this point in time. Patient also feels her right hand is worse, she is having more children difficulty with both pain and gripping. Unfortunately she missed her surgery as she ate breakfast has now been rescheduled for February. Patient does appear more lethargic today, and more difficulty tracking conversation, her O2 sats are 91%. Of note her Seroquel is also been increased this last month by 100 mg, concern regarding past history of hypoxia with overmedication. Did have discussion regarding methadone, her morphine equivalant for oxycodone use and not including hydrocodone use would be 6 mg, may have the benefit of more consistent long acting effect, adding different route for neuropathic pain of NMDA receptor. Social History - Living Situation Living arrangement: skilled nursing Support System: Patient with limited family support, does sound as if she is estranged from her children. She does get ongoing support from community mental health outreach. Medications/Allergies - Medications Home Medications: Ambulatory Orders Medication Instructions Recorded Confirmed Aspirin Chewable [[place]avio 81 mg PO DAILY 09/29/13 12/25/17 Aspirin] Docusate Sodium 250 mg PO BID 09/29/13 12/25/17 Omeprazole [PriLOSEC] 20 mg PO DAILY MDD For one month 09/29/13 12/25/17 diltiaZEM CD [Cardizem Cd] 240 mg PO BID 09/29/13 12/25/17 Multivitamin [Multivitamins] 1 each PO DAILY 06/06/14 12/25/17 Potassium Chloride 20 meq PO DAILY 06/06/14 12/25/17 Losartan [Cozaar] 100 mg PO DAILY 02/14/17 12/25/17 QUEtiapine [SEROquel] 400 mg PO QPM 02/14/17 12/25/17 Senna [Senokot] 17.2 mg PO DAILY 02/14/17 12/25/17 diphenhydrAMINE [Benadryl] 25 mg PO DAILY PRN 02/14/17 12/25/17 tiZANidine [Zanaflex] 4 mg PO TID 02/14/17 12/25/17 DULoxetine [Cymbalta] 120 mg PO DAILY 02/19/17 12/25/17 Furosemide [Lasix] 40 mg PO BID 04/25/17 12/25/17 Acetaminophen 500 mg PO Q6HR PRN 10/06/17 12/25/17 Meclizine HCl [Motion Sickness 25 mg PO BID PRN 10/06/17 12/25/17 Relief] Melatonin 3 mg PO QPM 10/06/17 12/25/17 Polyethylene Glycol 3350 [Miralax] 17 gm PO DAILY 10/06/17 11/19/17 Pregabalin [Lyrica] 100 mg PO TID 10/06/17 12/25/17 oxyCODONE/ACET 5/325 [Percocet 5 5 mg PO TID 10/06/17 12/25/17 mg/325 mg] Albuterol Sulfate [Proair Hfa 2 puffs INH Q4HR MDD four times 11/19/17 12/25/17 Inhaler] Biofreeze 1 applic TOP TID 12/25/17 Bisacodyl [Dulcolax] 5 mg PO DAILY 12/25/17 12/25/17 Hydrocodone/Acetaminophen 1.5 mg PO TID PRN 12/25/17 12/25/17 [Hydrocodone-Acetamin 10-325 mg] Sucralfate [Carafate] 1 gm PO PRN PRN MDD mouth 12/25/17 12/25/17 - Allergies Allergies/Adverse Reactions: Allergies Allergy/AdvReac Type Severity Reaction Status Date / Time erythromycin base Allergy Severe Anaphylaxis Verified 10/04/17 18:27 [Erythromycin Base] Penicillins Allergy Severe Anaphylaxis Verified 10/04/17 18:27 Sulfa (Sulfonamide Allergy Severe Redness/High Verified 10/04/17 18:27 Antibiotics) fever lisinopril Allergy Unknown Unknown Verified 10/04/17 18:27 ceftriaxone Allergy Rash Verified 10/04/17 18:27 quinidine Allergy Rash Verified 10/04/17 18:27 Review of Systems - Constitutional Constitutional: reports: Fatigue, Weight gain - Eyes Eyes: reports: Vision loss, Corrective lenses - Ears, Nose & Throat Ears, Nose & Throat: reports: Hearing loss (mild), Postnasal drainage, Hoarseness, Dental decay (working with [employer]) - Cardiovascular Cardiovascular: reports: Edema (c/o LE in left leg). denies: Chest pain - Respiratory Respiratory: reports: Cough (dry intermittent) - Gastrointestinal Gastrointestinal: reports: Constipation (intermittent; had wanted to decrease Senna secondary to frequency-since has added ducolax; cannot tell me why), Reflux/heartburn (occasionally in evening; trial of increased omeprazole unclear if improved given patient's poor recall), Good appetite - Genitourinary Genitourinary: reports: Other (has suprapubic catheter) - Musculoskeletal Musculoskeletal: reports: Muscle pain, Back pain, Muscle aches, Stiffness, Limited range of motion, Muscle weakness, Transfer issues (new stock turner wheelchair; getting used to new transfers) - Integumentary Integumentary: reports: Other (complaints of "bedsore on bottom") - Neurological Neurological: reports: General weakness, Memory problems, Other (c/o numbness LE ) - Psychiatric Psychiatric: reports: Depression, Anxiety, Delusions - Endocrine Endocrine: reports: Diabetes type 2 (controlled with diet 12/18 Aic 5.4) - Hematologic/Lymphatic Hematologic/Lymphatic: denies: Recurrent infections (no recent UTI) - All Other Systems All Other Systems: reports: Reviewed and negative Physical Exam - Vital Signs Temperature: 97.6 C Pulse Rate: 56 Respiratory Rate: 18 O2 Saturation: 91 (ra @ rest) Blood Pressure: 122/74 - Physical Exam General Appearance: positive: Moderate distress (rocking and rubbing leg; pain behaviors) Eyes Bilateral: positive: Normal inspection ENT: positive: No signs of dehydration Neck: positive: No JVD, Trachea midline Cardiovascular: positive: Regular rate & rhythm Respiratory: positive: Other (diminished breath sounds right mid/lower lobes). negative: Wheezes, Rales, Rhonchi Abdomen: positive: Non-tender, Soft, Nml bowel sounds Skin: positive: Pallor, Dryness, Pressure wound (thinned pink tissue in crevice with some maceration; tender on exam; scarred skin on buttocks bilat from previous ulcers; 0.6 cm scab over scar tissue on right; applied ointment) Extremities: positive: Pedal edema (trace pedal edema over foot/toes) Neurologic/Psychiatric: positive: Oriented x3, Flat affect, Other ( perseverating about multiple issues / persons today) Palliative Care - POLST Patient has POLST: Yes POLST Status: DNR, Comfort Measures Pain: Pain worsening, Location Tiredness/Fatigue: Moderate (4-6) Drowsiness/Sedation: Moderate (4-6) Nausea: None Depression: Moderate (4-6) Anxiety: Moderate (4-6) Dyspnea: Mild (1-3) Anorexia: None Sleep: Sleeps well Constipation: Yes, Opoid induced, Intermittent constipation Feelings of wellbeing/Perceived Quality of Life: Fair Performance Status: Patient dependent on staff for bathing assist. Patient is fairly independent in her room, though with the change of wheelchair does need standby assist for safe transfers per her request. She does isolate herself in the room, does do a few activities, feels her right hand is worse and continues to make propelling herself more difficult. - Palliative Care Discussion: Patient appears somewhat more disjointed this visit, did receive hydrocodone 10 mg/325 mg 1-2 tabs at 945 prior about an hour to her visit. Reports she is feeling like "something is going to happen". Unable to define this much further. Denies any increased physical symptoms other than her pain. She does feel her pain is escalated over the last couple weeks, and is quite distressed nobody is "fixing it", though she does understand that this is chronic in nature. She does report she still happy being there, she does have some paranoia that they are going to kick her out. She has been participating in [employer] and [employer] study, as well as her outings for her mental health counseling. She enjoys watching her birds, has multiple small complaints about a variety of topics. Denies feeling overwhelmed or depressed, does present with some baseline anxiety and perseveration. Results - Lab Results Lab results reviewed: Yes Lab and Imaging Results: Sodium 136; potassium 3.6; BUN 27; creatinine 1.2; GFR 44 this is improved. And glucose 115. Liver function and proteins within normal limits as well as her CBC drawn on 12/18/2017 Impression and Recommendations - Palliative Care Impression: This is a complex 72-year-old woman with long-standing chronic health and chronic pain issues, unfortunately did not get her surgery yet for her carpal tunnel syndrome. She does present with escalating pain behaviors, perception of pain is uncontrolled, but does present with some sedation today. Patient is a poor historian, does have underlying mental health issues complicating her perception and reporting, and resides in a long term. Palliative care providing support regarding pain and symptom management. Recommendations/Counseling Done: 1. Chronic pain syndrome. Patient currently on Lyrica 100 mg 3 times a day, Biofreeze providing intermittent relief, scheduled oxycodone 5 mg 3 times a day , duloxetine for depression with added efficacy for chronic pain syndrome, and his tizanidine 3 times a day for back spasms. Patient has recently rotated off oxycodone for breakthrough pain to Vicodin 10/325 mg 1 tablet 3 times a day as needed, last week with increased complaints the increase it to 1-/, patient does not maximize the use. But she does present with increasing pain behaviors. She is awaiting still her appointment for carpal tunnel syndrome, this does add to her level of pain and distress, but her largest complaint today is her phantom limb pain. We did discuss the use of methadone as a another approach. Concern today though is she does have some hypoxia, unclear if she has some underlying infection percolating, or is just sensitive to opioid effects. Will see in two weeks to see if patient better place to make changes. Addendum 12/25. Did discuss with Dr. Washington to leave it as is for couple weeks, as the change has just been made, and see if she is satisfied with the response. Would recommend in the future, that we titrate her off her oxycodone 5 mg 3 times daily, starting with oxycodone twice daily 3 days oxycodone when daily, and then 3 days then discontinue. I would also recommend we change back the Vicodin to 10 mg/325 1 tablet that she can still use up to 3 times a day. And at the time we initiate this plan of care start methadone 2.5 mg, which should be a half of a 5 mg at noon so as able to monitor any sedation or hypoxia. 2. Constipation. Patient having increased symptoms of constipation, there has been an added tablet of Dulcolax 5 mg daily. Patient unclear if she is currently satisfied with her regimen. 3. Depression. Patient does continue with fluctuating mood, does appear quite perseverating today, unclear if this is because of she is not feeling well, or her increased pain issues. Patient had been fairly stable but does cycle. She does present with some paranoia today. 4. Advanced care planning. Difficulty moving forward in this area, she does have a [employer] [address] and place, she would like to explore more end-of-life planning, that is quite perseverating to visit so will pursue next time. Time Spent: 60 minutes with greater than 50% done in counseling regarding current pain and symptom management, providing psychosocial support given patient's perceived isolation, and coordination of care regarding complex care needs.
== END 2017-12-24 10:41 | disposition home or self-care (01) ==
LOC: PC 10:40
PROVIDERS: ATTEND Nurse Practitioner Adult Health
DX: Z51.5 Encounter for palliative care (principal); G89.4 Chronic pain syndrome; K59.03 Drug induced constipation; T40.2X5A Adverse effect of other opioids, initial encounter; F32.9 Major depressive disorder, single episode, unspecified; F20.9 Schizophrenia, unspecified; E11.22 Type 2 diabetes mellitus with diabetic chronic kidney disease; N18.4 Chronic kidney disease, stage 4 (severe); G54.6 Phantom limb syndrome with pain; G62.9 Polyneuropathy, unspecified; Z79.82 Long term (current) use of aspirin; Z96.0 Presence of urogenital implants; F41.9 Anxiety disorder, unspecified; Z66 Do not resuscitate
CPT/HCPCS: 99310

== ENCOUNTER 2017-12-25 18:15 | Outpatient (CLI) | payer MEDICARE, MEDICAID ==
[2017-12-25 19:33] LABS: CALCIUM 8.5 mg/dL (8.5-10.3); CREATININE 1.4 mg/dL (0.4-1.0)
== END 2017-12-25 18:16 | disposition home or self-care (01) ==
LOC: LAB.R 18:15
DX: M79.2 Neuralgia and neuritis, unspecified (principal)
CPT/HCPCS: 80048

== ENCOUNTER 2018-01-07 15:00 | Outpatient (CLI) | payer MEDICARE, MEDICAID ==
--- NOTE | 2018-01-07 17:01 | CONSULTATION NOTE ---
Palliative Care Follow Up - Referral Referring Provider: Dr. Lorenzo Washington Time of Visit: 15-1600 Referral setting: Group Home Facility (patient in jail care under medicaid) Referral Reason: Neuropathic pain/FUO - Information Sources Records reviewed: RN notes reviewed, Previous records reviewed History/Review of Systems obtained from: Patient Exam limitations: Clinical condition (Patient with significant short-term memory issues, poor recall, severe anxiety and some perseverating. Is able to answer questions so in the here and now, and engage in conversation and exam) - History of Present Illness Update Brief HPI Update: This is a complicated 72-year-old woman with a long list of comorbidities including but not limited to schizophrenia, depression, asthma, hypertension, peripheral neuropathy, status post left [id number] Amputation, osteoarthritis, phantom limb pain, venous stasis in her right leg, CKD stage IV , carpal tunnel syndrome, and chronic pain syndrome. Today patient reports increase in pain and sensitivity, she actually describes her pain is more rectal and pelvic, she reports she is having sharp stabbing pains through her lower pelvis area. She is having a temp of 99.9, she reports she felt nauseous through the day, but her pain levels have been higher, her appetite has been down. She reports she has had a decreased intake of fluid for several days. She reports "wetness" with catheter, appears to be having spasms, exit site with granular tissue noted, macerated somewhat and dressing at exit site moist and with creamy yellow discharge. Denies decrease in appetite. She has some chills this morning, denies any at time of visit. She has had some falls, these appear to be contributed by sedation, and her leaning forward, I did observe her trying to lean forward and fix her Reyes bag which was further back than her previous wheelchair. She is more irritable than her baseline, and reports she is feeling poorly. In looking at her pain regimen. We had decided to hold off on the methadone, await and see because of her changes in status 2 weeks ago, she as taking as well as her baseline Lyrica 100 mg 3 times a day, oxycodone 5 mg 3 times a day and hydrocodone recently increased to 1.5 mg tablets of 10/325 mg up to 3 times daily about averaging 2 times a day. These are mostly taken in the afternoon and early a.m. Patient reports severe pain with constipation, reports history of hemorrhoids. And is feeling somewhat overwhelmed overall today. Social History - Living Situation Living arrangement: residential Support System: Patient is estranged from her children, she does have ongoing support from community mental health outreach. Medications/Allergies - Medications Home Medications: Ambulatory Orders Medication Instructions Recorded Confirmed Aspirin Chewable [St Flavio 81 mg PO DAILY 09/29/13 01/07/18 Aspirin] Docusate Sodium 250 mg PO BID 09/29/13 01/07/18 Omeprazole [PriLOSEC] 20 mg PO DAILY 09/29/13 01/07/18 diltiaZEM CD [Cardizem Cd] 240 mg PO BID 09/29/13 01/07/18 Multivitamin [Multivitamins] 1 each PO DAILY 06/06/14 01/07/18 Potassium Chloride 30 meq PO DAILY 06/06/14 01/07/18 Losartan [Cozaar] 100 mg PO DAILY 02/14/17 01/07/18 QUEtiapine [SEROquel] 400 mg PO QPM 02/14/17 01/07/18 Senna [Senokot] 17.2 mg PO BID 02/14/17 01/07/18 diphenhydrAMINE [Benadryl] 25 mg PO DAILY PRN 02/14/17 01/07/18 tiZANidine [Zanaflex] 4 mg PO TID 02/14/17 01/07/18 DULoxetine [Cymbalta] 120 mg PO DAILY 02/19/17 01/07/18 Furosemide [Lasix] 40 mg PO BID 04/25/17 01/07/18 Acetaminophen 500 mg PO Q6HR PRN 10/06/17 01/07/18 Meclizine HCl [Motion Sickness 25 mg PO BID PRN 10/06/17 01/07/18 Relief] Melatonin 3 mg PO QPM 10/06/17 01/07/18 Polyethylene Glycol 3350 [Miralax] 17 gm PO DAILY 10/06/17 01/07/18 Pregabalin [Lyrica] 100 mg PO TID 10/06/17 01/07/18 oxyCODONE/ACET 5/325 [Percocet 5 5 mg PO TID 10/06/17 01/07/18 mg/325 mg] Albuterol Sulfate [Proair Hfa 2 puffs INH Q4HR MDD four times 11/19/17 01/07/18 Inhaler] Biofreeze 1 applic TOP TID 12/25/17 01/07/18 Bisacodyl [Dulcolax] 5 mg PO DAILY 12/25/17 01/07/18 Hydrocodone/Acetaminophen 1 mg PO TID PRN 12/25/17 01/07/18 [Hydrocodone-Acetamin 10-325 mg] Sucralfate [Carafate] 1 gm PO PRN PRN MDD mouth 12/25/17 01/07/18 Nystatin [Nystop] 1 applic TOP BID MDD groin folds 01/07/18 01/07/18 - Allergies Allergies/Adverse Reactions: Allergies Allergy/AdvReac Type Severity Reaction Status Date / Time erythromycin base Allergy Severe Anaphylaxis Verified 10/04/17 18:27 [Erythromycin Base] Penicillins Allergy Severe Anaphylaxis Verified 10/04/17 18:27 Sulfa (Sulfonamide Allergy Severe Redness/High Verified 10/04/17 18:27 Antibiotics) fever lisinopril Allergy Unknown Unknown Verified 10/04/17 18:27 ceftriaxone Allergy Rash Verified 10/04/17 18:27 quinidine Allergy Rash Verified 10/04/17 18:27 Review of Systems - Constitutional Constitutional: reports: Fatigue, Chills (this am), Malaise, Weakness, Weight stable (192) - Eyes Eyes: reports: Vision loss, Corrective lenses - Ears, Nose & Throat Ears, Nose & Throat: reports: Hearing loss (mild), Dental decay, Dry mouth - Cardiovascular Cardiovascular: reports: Edema - Gastrointestinal Gastrointestinal: reports: Abdominal pain, Constipation, Nausea, Good appetite, Other (reports decreased oral fluid intake) - Genitourinary Genitourinary: reports: Other (supra pubic catheter;) - Musculoskeletal Musculoskeletal: reports: Back pain, Muscle aches, Stiffness, Muscle weakness, Transfer issues (transfers from w/c to bed independently) - Integumentary Integumentary: reports: Rash, Dryness, Other (c/o tail bone hurting too) - Neurological Neurological: reports: General weakness, Memory problems - Psychiatric Psychiatric: reports: Depression, Anxiety, Behavior disturbances - Endocrine Endocrine: reports: Diabetes type 2 - Hematologic/Lymphatic Hematologic/Lymphatic: reports: Recurrent infections (hx of UTIs last treated in 09/2017) - All Other Systems All Other Systems: reports: Reviewed and negative Physical Exam - Vital Signs Temperature: 99.9 C Pulse Rate: 66 Respiratory Rate: 18 O2 Saturation: 94 (ra @ rest) Blood Pressure: 112/62 - Physical Exam General Appearance: positive: Moderate distress Eyes Bilateral: positive: Normal inspection ENT: positive: ENT inspection nml Neck: positive: No JVD, Trachea midline Cardiovascular: positive: Regular rate & rhythm Respiratory: positive: Diminished in bases (left greater than right about 1/2 up ). negative: Wheezes, Rales, Rhonchi Abdomen: positive: Soft, Nml bowel sounds, Tenderness, Other (external hemorrhoid not inflamed) Skin: positive: Pallor, Dryness, Rash (groin rash noted and irritated), Pressure wound (thinned red coccyx; small raised lesion right buttock) Extremities: positive: Pedal edema (right slight trace) Neurologic/Psychiatric: positive: Disoriented to time, Weakness, Depressed mood/ affect, Flat affect, Other (feeling very irritable (usually able to temper with me);) Palliative Care - POLST Patient has POLST: Yes POLST Status: DNR, Comfort Measures Pain: Pain worsening, Location (Baseline pain is neuropathic in nature with sharp shooting pains from her back down into her hips and legs; she also complains of phantom limb pain, her focus of discomfort today though is actually rectal pain and more lower pelvic pain, she reports is sharp shooting discomfort through her lower pelvis area, she is complaining of constipation and discomfort in her abdomen from this as well.) Tiredness/Fatigue: Severe (7-10) Drowsiness/Sedation: Moderate (4-6) Nausea: Moderate (4-6) Depression: Moderate (4-6) Anxiety: Moderate (4-6) Dyspnea: Mild (1-3) Sleep: Variable sleep pattern (stays up late) Constipation: Yes, Opoid induced, Unmanaged Feelings of wellbeing/Perceived Quality of Life: Poor, Worsening Performance Status: Patient with limited mobility secondary to her carpal tunnel syndrome on her right, having increased difficulty with transfers, did get a new wheelchair, but this finding the distance seems somewhat different. She is dependent for ADLs, she is able to somewhat dress herself but needs a little bit more assistance with that. She has been spending more time in bed the last few days that she has not been feeling as well per her report - Palliative Care Discussion: Patient acknowledges memory issues, but is feeling like she has not been feeling well and feeling quite isolated. She continues to be estranged from her family, has continuing perseverating thoughts regarding this. Impression and Recommendations - Palliative Care Impression: This is a complex 72-year-old woman with long-standing chronic health and chronic pain issues, she presents today with signs and symptoms of acute illness with fever, increased pain, irritability, and nausea. Patient is a poor historian, does have underlying mental health issues often come locating ability to recall and report accurately her symptoms. Palliative care providing support regarding pain and symptom management. Recommendations/Counseling Done: 1. Chronic pain syndrome. Patient currently on Lyrica 100 mg 3 times daily, Biofreeze providing intermittent relief as a counter irritant, scheduled oxycodone 5 mg 3 times daily, duloxetine for depression with added efficacy for chronic pain syndrome and tizanidine 3 times a day for back spasms. Patient has recently rotated off oxycodone for breakthrough pain to Vicodin 10/325 mg she was increased to 1 and half tabs 3 times daily, this has resulted in some oversedation and increase in falls, will decrease back to 1 tab 3 times daily. Patient does not maximize use as it is. She does have increasing pain behaviors but these present in a new area focus including rectal pain and discomfort and abdominal pain and cramping. At this point in time we had discussed transitioning to trial of methadone particularly for her phantom limb pain, will continue to hold this thought in the future but currently with her acute healthcare issues it will be hard to titrate and monitor response. 2. Constipation patient now presents with descriptions of hemorrhoidal pain, increased constipation and pain and cramping. She had recently had added Dulcolax 5 mg, will go ahead and increase her senna 2 tabs to 2 tabs twice daily. Patient reports stool is soft just not going frequently and having increased pain in passing stool. 3. FUO. Most likely candidate is her urine, she has had recurrent UTIs in the past the last time was treated in 09/2017. Patient does present with low-grade fever 99.9, increased pain behaviors which have often been an indicator in the past, nausea, increased spasms at suprapubic exit site, urine is slightly cloudy , patient reports decreased intake and feeling quite poor including chills this morning. Consult with Dr. Washington PCP, as I am going out of town, will go ahead and get a UA she is due for suprapubic cath change today instructed to get with fresh specimen, and dry concurrently CBC, would at this point in time given her symptoms make it a low threshold to treat. 4. Depression. Patient continues with fluctuating mood, she does feel quite poorly this is increased her irritability and perseverating with this visit. Will revisit next visit. 5. Candidiasis skin. She does have candidiasis in her groin folds, these are source of discomfort for her will go ahead and order Nystop twice daily. 6. Rectal pain. No external hemorrhoid obvious, she does have some thinning and stage I decub, though did apply zinc with some improvement in discomfort as well as from perirectal area. We will plan to see patient again in 2 weeks, will defer treatment for follow- up on fever and UA to Dr. Washington. Did have a [id number] with him, he he is aware of the current plan in agreement Time Spent: 60 minutes with greater than 50% of this done in counseling on follow-up and coordination of care regarding patient's acute signs or symptoms of infection and anticipatory
== END 2018-01-07 15:01 | disposition home or self-care (01) ==
LOC: PC 15:00
PROVIDERS: ATTEND Nurse Practitioner Adult Health
DX: Z51.5 Encounter for palliative care (principal); G89.4 Chronic pain syndrome; K59.03 Drug induced constipation; T40.2X5D Adverse effect of other opioids, subsequent encounter; R50.9 Fever, unspecified; F32.9 Major depressive disorder, single episode, unspecified; K62.89 Other specified diseases of anus and rectum; G54.6 Phantom limb syndrome with pain; F20.9 Schizophrenia, unspecified; Z79.82 Long term (current) use of aspirin; Z96.0 Presence of urogenital implants; M62.81 Muscle weakness (generalized); E11.22 Type 2 diabetes mellitus with diabetic chronic kidney disease; N18.4 Chronic kidney disease, stage 4 (severe); I12.9 Hypertensive chronic kidney disease with stage 1 through stage 4 chronic kidney disease, or unspecified chronic kidney disease; F41.9 Anxiety disorder, unspecified; Z66 Do not resuscitate
CPT/HCPCS: 99310

== ENCOUNTER 2018-01-08 08:55 | Outpatient (CLI) | payer MEDICARE, MEDICAID ==
[2018-01-08 07:29] LABS: BILIRUBIN,URINE NEGATIVE (NEGATIVE); GLUCOSE, URINE (UA) NEGATIVE (NEGATIVE); KETONES,URINE (UA) NEGATIVE (NEGATIVE); LEUKOCYTE ESTERASE, URINE SMALL (NEGATIVE); NITRITE,URINE NEGATIVE (NEGATIVE); OCCULT BLOOD,URINE MODERATE (NEGATIVE); PROTEIN,URINE NEGATIVE (NEGATIVE); UROBILINOGEN,URINE 0.2 (NORMAL) E.U./dL (NORMAL)
[2018-01-08 07:33] LABS: CLARITY,URINE CLEAR (CLEAR)
[2018-01-08 07:50] LABS: RBC,URINE 0-5 /HPF (0-5)
[2018-01-08 07:51] LABS: BACTERIA,URINE Few /HPF (None Seen); SQUAMOUS EPITHELIAL CELL,UR FEW Squamous (<= Few)
[2018-01-08 10:53] LABS: BASOPHILS % (AUTO) 0.5 %; EOSINOPHILS # (AUTO) 0.5 10^3/uL (0.0-0.7); EOSINOPHILS % (AUTO) 7.8 %; HGB - HEMOGLOBIN 13.6 g/dL (12.0-16.0); LYMPHOCYTES # (AUTO) 1.8 10^3/uL (1.5-3.5); LYMPHOCYTES % (AUTO) 30.2 %; MEAN CORPUSCULAR VOLUME 82.1 fL (81.0-99.0); MEAN PLATELET VOLUME 8.5 fL (7.9-10.8); MONOCYTES # (AUTO) 0.5 10^3/uL (0.0-1.0); MONOCYTES % (AUTO) 7.9 %; NEUTROPHILS # (AUTO) 3.2 10^3/uL (1.5-6.6); NEUTROPHILS % (AUTO) 53.6 %; PLT - PLATELET COUNT 242 10^3/uL (130-450); RED BLOOD COUNT 5.01 10^6/uL (4.20-5.40); RED CELL DISTRIBUTION WIDTH 14.5 % (12.0-15.0)
== END 2018-01-08 08:56 | disposition home or self-care (01) ==
LOC: LAB.R 08:55
DX: N39.0 Urinary tract infection, site not specified (principal); D64.9 Anemia, unspecified; R68.89 Other general symptoms and signs
CPT/HCPCS: 81001; 81003; 85025; 87077; 87086; 87181

== ENCOUNTER 2018-01-24 08:00 | Outpatient (CLI) | payer MEDICARE, MEDICAID | END 2018-01-24 08:01 | disposition home or self-care (01) | LOC: LAB.R 08:00 | PROVIDERS: ATTEND Family Medicine | DX: R79.89 Other specified abnormal findings of blood chemistry (principal) ==

== ENCOUNTER 2018-01-24 08:00 | Outpatient (CLI) | payer MEDICARE, MEDICAID ==
[2018-01-24 23:35] LABS: CALCIUM 8.8 mg/dL (8.5-10.3); CREATININE 1.7 mg/dL (0.4-1.0)
== END 2018-01-24 08:01 | disposition home or self-care (01) ==
LOC: LAB.R 08:00
PROVIDERS: ATTEND Family Medicine
DX: R79.89 Other specified abnormal findings of blood chemistry (principal)
CPT/HCPCS: 80048

== ENCOUNTER 2018-01-26 08:00 | Outpatient (CLI) | payer MEDICARE, MEDICAID ==
[2018-01-27 00:32] LABS: BILIRUBIN,URINE NEGATIVE (NEGATIVE); GLUCOSE, URINE (UA) NEGATIVE (NEGATIVE); KETONES,URINE (UA) NEGATIVE (NEGATIVE); LEUKOCYTE ESTERASE, URINE MODERATE (NEGATIVE); NITRITE,URINE POSITIVE (NEGATIVE); OCCULT BLOOD,URINE LARGE (NEGATIVE); PROTEIN,URINE 100 mg/dL (NEGATIVE); UROBILINOGEN,URINE 0.2 (NORMAL) E.U./dL (NORMAL)
[2018-01-27 00:35] LABS: CLARITY,URINE HAZY (CLEAR)
[2018-01-27 00:43] LABS: BACTERIA,URINE Moderate /HPF (None Seen); SQUAMOUS EPITHELIAL CELL,UR FEW Squamous (<= Few)
== END 2018-01-26 23:59 | disposition home or self-care (01) ==
LOC: LAB.R 08:00
DX: N39.0 Urinary tract infection, site not specified (principal)
CPT/HCPCS: 81001; 81003; 87077; 87086; 87181

== ENCOUNTER 2018-01-26 08:00 | Outpatient (CLI) | payer MEDICARE, MEDICAID ==
[2018-01-26 20:49] LABS: BASOPHILS % (AUTO) 0.7 %; EOSINOPHILS # (AUTO) 0.4 10^3/uL (0.0-0.7); HGB - HEMOGLOBIN 11.5 g/dL (12.0-16.0); LYMPHOCYTES # (AUTO) 1.8 10^3/uL (1.5-3.5); LYMPHOCYTES % (AUTO) 26.2 %; MEAN CORPUSCULAR VOLUME 81.8 fL (81.0-99.0); MEAN PLATELET VOLUME 8.8 fL (7.9-10.8); MONOCYTES # (AUTO) 0.8 10^3/uL (0.0-1.0); MONOCYTES % (AUTO) 12.3 %; NEUTROPHILS # (AUTO) 3.8 10^3/uL (1.5-6.6); NEUTROPHILS % (AUTO) 54.8 %; PLT - PLATELET COUNT 240 10^3/uL (130-450); RED BLOOD COUNT 4.25 10^6/uL (4.20-5.40); RED CELL DISTRIBUTION WIDTH 14.9 % (12.0-15.0); WHITE BLOOD COUNT 6.9 x10^3/uL (4.8-10.8)
== END 2018-01-26 08:01 | disposition home or self-care (01) ==
LOC: LAB.R 08:00
DX: I10 Essential (primary) hypertension (principal); D64.9 Anemia, unspecified; A41.9 Sepsis, unspecified organism; E87.5 Hyperkalemia
CPT/HCPCS: 80048; 81001; 81003; 85025; 87077; 87086; 87181

== ENCOUNTER 2018-02-01 12:02 | Outpatient (CLI) | payer MEDICARE, MEDICAID | END 2018-02-01 12:03 | disposition critical access hospital (66) | LOC: EMS 12:02 | PROVIDERS: ATTEND Surgery | DX: M53.3 Sacrococcygeal disorders, not elsewhere classified (principal); W19.XXXA Unspecified fall, initial encounter | CPT/HCPCS: A0425; A0429 ==

== ENCOUNTER 2018-02-01 12:09 | Emergency (ER) | payer MEDICARE, MEDICAID ==
--- NOTE | 2018-02-01 13:40 | ED Physician Documentation ---
PD HPI Fall - Stated complaint Stated Complaint: GLF - Chief complaint Chief Complaint: General - History obtained from History obtained from: Patient - History of Present Illness Mechanism of injury: Lost balance Fall distance: Standing position Where injury occurred: Home Timing - onset: Other (many times) Injury(ies) location: Left Lower Extremity, Other (tailbone) Quality of pain: Pain Associated symptoms: No: LOC, AMS, Amnesia, Seizures, Ear drainage, Nasal drainage Symptoms improve with: Rest Worsens with: Movement, Palpation Contributing factors: No: Anticoagulated Similar symptoms before: No diagnosis Recently seen: Not recently seen - Additional information Additional information: 72-year-old schizophrenic female with an indwelling Reyes catheter is at [facility]. She has been having multiple falls. She does have a left AKA and she states the falls have happened when she is making a transfer from her bed to her chair. She complains of pain in her tailbone and in her left distal femur. She has had a number of prior infections with sepsis and has an indwelling suprapubic catheter. Review of Systems Constitutional: reports: Fever, Fatigue Eyes: denies: Decreased vision Ears: denies: Ear pain Nose: denies: Congestion Throat: denies: Sore throat Cardiac: denies: Chest pain / pressure, Palpitations Respiratory: denies: Dyspnea, Cough GI: reports: Nausea. denies: Abdominal Pain, Vomiting : denies: Dysuria, Frequency PD PAST MEDICAL HISTORY - Past Medical History Past Medical History: Yes Cardiovascular: Hypertension, High cholesterol Respiratory: Asthma, Pneumonia Neuro: Headaches, Peripheral neuropathy Endocrine/Autoimmune: Type 2 diabetes GI: GERD, C.difficile, Chronic constipation : Chronic bladder infection, Kidney stones, Other HEENT: Other Psych: Depression, Anxiety, Schizophrenia Musculoskeletal: Osteoarthritis, Chronic back pain, Other Derm: Other Other Past Medical History: BTK left - Past Surgical History Past Surgical History: Yes General: Appendectomy, Colonoscopy, EGD Ortho: Spine surgery, Amputation, 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, Other Cardiovascular: Other - Present Medications Home Medications: Ambulatory Orders Medication Instructions Recorded Confirmed Aspirin Chewable [St Flavio 81 mg PO DAILY 09/29/13 01/07/18 Aspirin] Docusate Sodium 250 mg PO BID 09/29/13 01/07/18 Omeprazole [PriLOSEC] 20 mg PO DAILY 09/29/13 01/07/18 diltiaZEM CD [Cardizem Cd] 240 mg PO BID 09/29/13 01/07/18 Multivitamin [Multivitamins] 1 each PO DAILY 06/06/14 01/07/18 Potassium Chloride 30 meq PO DAILY 06/06/14 01/07/18 Losartan [Cozaar] 100 mg PO DAILY 02/14/17 01/07/18 QUEtiapine [SEROquel] 400 mg PO QPM 02/14/17 01/07/18 Senna [Senokot] 17.2 mg PO BID 02/14/17 01/07/18 diphenhydrAMINE [Benadryl] 25 mg PO DAILY PRN 02/14/17 01/07/18 tiZANidine [Zanaflex] 4 mg PO TID 02/14/17 01/07/18 DULoxetine [Cymbalta] 120 mg PO DAILY 02/19/17 01/07/18 Furosemide [Lasix] 40 mg PO BID 04/25/17 01/07/18 Acetaminophen 500 mg PO Q6HR PRN 10/06/17 01/07/18 Meclizine HCl [Motion Sickness 25 mg PO BID PRN 10/06/17 01/07/18 Relief] Melatonin 3 mg PO QPM 10/06/17 01/07/18 Polyethylene Glycol 3350 [Miralax] 17 gm PO DAILY 10/06/17 01/07/18 Pregabalin [Lyrica] 100 mg PO TID 10/06/17 01/07/18 oxyCODONE/ACET 5/325 [Percocet 5 5 mg PO TID 10/06/17 01/07/18 mg/325 mg] Albuterol Sulfate [Proair Hfa 2 puffs INH Q4HR MDD four times 11/19/17 01/07/18 Inhaler] Biofreeze 1 applic TOP TID 12/25/17 01/07/18 Bisacodyl [Dulcolax] 5 mg PO DAILY 12/25/17 01/07/18 Hydrocodone/Acetaminophen 1 mg PO TID PRN 12/25/17 01/07/18 [Hydrocodone-Acetamin 10-325 mg] Sucralfate [Carafate] 1 gm PO PRN PRN MDD mouth 12/25/17 01/07/18 Nystatin [Nystop] 1 applic TOP BID MDD groin folds 01/07/18 01/07/18 - Allergies Allergies/Adverse Reactions: Allergies Allergy/AdvReac Type Severity Reaction Status Date / Time erythromycin base Allergy Severe Anaphylaxis Verified 10/04/17 18:27 [Erythromycin Base] Penicillins Allergy Severe Anaphylaxis Verified 10/04/17 18:27 Sulfa (Sulfonamide Allergy Severe Redness/High Verified 10/04/17 18:27 Antibiotics) fever lisinopril Allergy Unknown Unknown Verified 10/04/17 18:27 ceftriaxone Allergy Rash Verified 10/04/17 18:27 quinidine Allergy Rash Verified 10/04/17 18:27 - Social History Does the pt smoke?: No Smoking Status: Never smoker Does the pt drink ETOH?: No Does the pt have substance abuse?: No - Immunizations Immunizations are current?: No Immunizations: TDAP >10years/unknown - POLST Patient has POLST: Yes POLST Status: Full Code PD ED PE NORMAL - Vitals Vital signs reviewed: Yes (hypertensive mild ) - General General: No acute distress, Well developed/nourished - HEENT HEENT: Atraumatic, PERRL, EOMI - Neck Neck: Supple, no meningeal sign - Cardiac Cardiac: RRR, No murmur - Respiratory Respiratory: No respiratory distress, Clear bilaterally - Abdomen Abdomen: Soft, Non tender - Back Back: No CVA TTP, Other (There is tenderness to the sacrum and coccyx) - Derm Derm: Normal color, Warm and dry, No rash - Neuro Neuro: No motor deficit, No sensory deficit Eye Opening: Spontaneous Motor: Obeys Commands Verbal: Oriented GCS Score: 15 - Psych Psych: Normal mood, Normal affect Results - Vitals Vitals: Vital Signs - 24 hr 02/01/18 02/01/18 12:19 12:31 Temperature 36.8 C Heart Rate 70 74 Respiratory 16 18 Rate Blood Pressure 136/77 H 160/83 H O2 Saturation 99 94 Oxygen O2 Source Room air - Labs Labs: Laboratory Tests 02/01/18 02/01/18 02/01/18 14:00 14:10 14:10 WBC 7.1 RBC 4.24 Hgb 11.5 L Hct 34.1 L MCV 80.3 L MCH 27.0 MCHC 33.7 RDW 14.8 Plt Count 249 MPV 8.1 Neut # (Auto) 3.6 Lymph # (Auto) 2.3 [place] # (Auto) 0.6 Eos # (Auto) 0.5 Baso # (Auto) 0.0 Absolute Nucleated RBC 0.00 Nucleated RBC % 0.0 Sodium 138 Potassium 4.5 Chloride 101 Carbon Dioxide 27 Anion Gap 10.0 BUN 37 H Creatinine 1.0 Estimated GFR (MDRD) 54 L Glucose 128 H Lactic Acid Calcium 9.3 Total Bilirubin 0.6 AST 26 ALT 21 Alkaline Phosphatase 61 Troponin I Total Protein 7.8 Albumin 3.6 Globulin 4.2 Albumin/Globulin Ratio 0.9 L Lipase 37 Urine Color LIGHT YELLOW Urine Clarity CLEAR Urine pH 7.5 Ur Specific [place] <=1.005 Urine Protein NEGATIVE Urine Glucose (UA) NEGATIVE Urine Ketones NEGATIVE Urine Occult Blood MODERATE H Urine Nitrite POSITIVE H Urine Bilirubin NEGATIVE Urine Urobilinogen 0.2 (NORMAL) Ur Leukocyte Esterase MODERATE H Urine RBC 0-5 Urine WBC 4-5 Ur Squamous Epith Cells NONE SEEN Urine Bacteria None Seen Ur Microscopic Review INDICATED Urine Culture Comments INDICATED 02/01/18 02/01/18 14:10 14:10 WBC RBC Hgb Hct MCV MCH MCHC RDW Plt Count MPV Neut # (Auto) Lymph # (Auto) [place] # (Auto) Eos # (Auto) Baso # (Auto) Absolute Nucleated RBC Nucleated RBC % Sodium Potassium Chloride Carbon Dioxide Anion Gap BUN Creatinine Estimated GFR (MDRD) Glucose Lactic Acid 0.8 Calcium Total Bilirubin AST ALT Alkaline Phosphatase Troponin I < 0.04 Total Protein Albumin Globulin Albumin/Globulin Ratio Lipase Urine Color Urine Clarity Urine pH Ur Specific [place] Urine Protein Urine Glucose (UA) Urine Ketones Urine Occult Blood Urine Nitrite Urine Bilirubin Urine Urobilinogen Ur Leukocyte Esterase Urine RBC Urine WBC Ur Squamous Epith Cells Urine Bacteria Ur Microscopic Review Urine Culture Comments - Rads (name of study) femur left Radiology: Prelim report reviewed (Impression: No acute bony abnormality.), EMP read indepedently, See rad report sacrum/coccyx Radiology: Prelim report reviewed (Impression: No acute bony abnormality.), EMP read indepedently, See rad report Procedures - IVC sono (time) 1400 Bedside IVC sono: IVC measures (cm) (1.64), Euvolemia PD MEDICAL DECISION MAKING - ED course Complexity details: reviewed results, re-evaluated patient, considered differential, d/w patient ED course: 72-year-old schizophrenic female with a left AKA has had falls has injured the stump of her amputation and she has pain to her sacrum as well. There is no evidence of fracture on x-ray examination. - Sepsis Event Vital Signs: Vital Signs - 24 hr 02/01/18 02/01/18 12:19 12:31 Temperature 36.8 C Heart Rate 70 74 Respiratory 16 18 Rate Blood Pressure 136/77 H 160/83 H O2 Saturation 99 94 Oxygen O2 Source Room air Departure - Departure Disposition: 01 Home, Self Care Clinical Impression: Coccyx contusion Qualifiers: Encounter type: initial encounter Qualified Code(s): S30.0XXA - Contusion of lower back and pelvis, initial encounter Contusion of left thigh Qualifiers: Encounter type: initial encounter Qualified Code(s): S70.12XA - Contusion of left thigh, initial encounter Condition: Stable Instructions: ED Contusion Sacrum Coccyx Follow-Up: Lorenzo Washington DO [Primary Care Provider] -
[2018-02-01 14:17] LABS: BILIRUBIN,URINE NEGATIVE (NEGATIVE); GLUCOSE, URINE (UA) NEGATIVE (NEGATIVE); KETONES,URINE (UA) NEGATIVE (NEGATIVE); LEUKOCYTE ESTERASE, URINE MODERATE (NEGATIVE); NITRITE,URINE POSITIVE (NEGATIVE); OCCULT BLOOD,URINE MODERATE (NEGATIVE); PH,URINE 7.5 PH (5.0-7.5); PROTEIN,URINE NEGATIVE (NEGATIVE); UROBILINOGEN,URINE 0.2 (NORMAL) E.U./dL (NORMAL)
[2018-02-01 14:22] LABS: BASOPHILS % (AUTO) 0.6 %; EOSINOPHILS # (AUTO) 0.5 10^3/uL (0.0-0.7); EOSINOPHILS % (AUTO) 7.1 %; HGB - HEMOGLOBIN 11.5 g/dL (12.0-16.0); LYMPHOCYTES # (AUTO) 2.3 10^3/uL (1.5-3.5); LYMPHOCYTES % (AUTO) 32.9 %; MEAN CORPUSCULAR HGB CONC 33.7 g/dL (32.0-36.0); MEAN CORPUSCULAR VOLUME 80.3 fL (81.0-99.0); MEAN PLATELET VOLUME 8.1 fL (7.9-10.8); MONOCYTES # (AUTO) 0.6 10^3/uL (0.0-1.0); MONOCYTES % (AUTO) 8.9 %; NEUTROPHILS # (AUTO) 3.6 10^3/uL (1.5-6.6); NEUTROPHILS % (AUTO) 50.5 %; PLT - PLATELET COUNT 249 10^3/uL (130-450); RED BLOOD COUNT 4.24 10^6/uL (4.20-5.40); RED CELL DISTRIBUTION WIDTH 14.8 % (12.0-15.0); WHITE BLOOD COUNT 7.1 x10^3/uL (4.8-10.8)
[2018-02-01 14:33] LABS: ALBUMIN 3.6 g/dL (3.2-5.5); ALBUMIN/GLOBULIN RATIO 0.9 (1.0-2.2); BILIRUBIN,TOTAL 0.6 mg/dL (0.2-1.0); CALCIUM 9.3 mg/dL (8.5-10.3); TOTAL PROTEIN 7.8 g/dL (6.7-8.2)
[2018-02-01 14:37] LABS: CLARITY,URINE CLEAR (CLEAR)
[2018-02-01 14:38] LABS: BACTERIA,URINE None Seen /HPF (None Seen); RBC,URINE 0-5 /HPF (0-5); SQUAMOUS EPITHELIAL CELL,UR NONE SEEN (<= Few)
--- NOTE | 2018-02-01 15:15 | XRAY Report ---
Reason: fall tailbone pain Procedure Date: 02/01/2018 Accession Number: [id number] / [id number] Procedure: XR - Sacrum/Coccyx CPT Code: FULL RESULT: EXAM: SACRUM AND COCCYX RADIOGRAPHY EXAM DATE: 02/01/2018 02:55 PM. HISTORY: Fall yesterday with tailbone pain. COMPARISONS: ABDOMEN/PELVIS W/O 09/08/2013 2:14 PM. TECHNIQUE: 3 views. FINDINGS: Alignment: Normal. The sacrum and coccyx are normally aligned. 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 No acute trabecular or cortical disruption. Remote laminectomy and interbody fusion for grade 2 spondylolisthesis L4-L5. Stable marked degenerative disk disease L5-S1. Moderate degenerative changes both sacroiliac joints. Normal hip joints. Soft Tissues: Unremarkable. IMPRESSION: No acute bony abnormality. RADIA
--- NOTE | 2018-02-01 15:16 | XRAY Report ---
Reason: fall bruising pain to distal femur Procedure Date: 02/01/2018 Accession Number: [id number] / [id number] Procedure: XR - Femur 2V LT CPT Code: FULL RESULT: EXAM: LEFT FEMUR RADIOGRAPHY EXAM DATE: 02/01/2018 02:55 PM. CLINICAL HISTORY: Fall yesterday, bruising pain to distal femur. COMPARISON: None. TECHNIQUE: 4 views. FINDINGS: Bones: Marked demineralization. Trabecular and cortical patterns are intact. Joints: Normal left hip. Remote amputation left leg at the knee joint. Soft Tissues: Normal. No soft tissue swelling. IMPRESSION: No acute bony abnormality. RADIA
[2018-02-01 15:29] VITALS: BP 151/94
[2018-02-01] MEDS ORDERED: oxyCODONE 5 MG TABLET PO STA (15:42)
== END 2018-02-01 16:56 | disposition home or self-care (01) ==
LOC: EDUNIT# → ED 12:09
DX: S30.0XXA Contusion of lower back and pelvis, initial encounter (principal); S70.12XA Contusion of left thigh, initial encounter; W18.30XA Fall on same level, unspecified, initial encounter; E11.9 Type 2 diabetes mellitus without complications; I10 Essential (primary) hypertension; Y93.89 Activity, other specified; Y92.129 Unspecified place in nursing home as the place of occurrence of the external cause; Z79.82 Long term (current) use of aspirin; Z89.612 Acquired absence of left leg above knee; Z96.0 Presence of urogenital implants
CPT/HCPCS: 36415; 72220; 73552; 80053; 81001; 83605; 83690; 84484; 85025; 87040; 87077; 87086; 87181; 99282; 99283; A9270; 81003

== ENCOUNTER 2018-02-12 23:03 | Outpatient (CLI) | payer MEDICARE, MEDICAID | END 2018-02-12 23:04 | disposition critical access hospital (66) | LOC: EMS 23:03 | PROVIDERS: ATTEND Surgery | DX: R46.4 Slowness and poor responsiveness (principal); R51 Headache | CPT/HCPCS: A0425; A0427 ==

== ENCOUNTER 2018-02-12 23:08 | Inpatient (IN) | payer MEDICARE, MEDICAID ==
[2018-02-12] MEDS ORDERED: SODIUM CHLORIDE 0.9% 1,000 ML IV ONE (23:23)
[2018-02-12 23:34] LABS: BILIRUBIN,URINE NEGATIVE (NEGATIVE); GLUCOSE, URINE (UA) NEGATIVE (NEGATIVE); KETONES,URINE (UA) NEGATIVE (NEGATIVE); LEUKOCYTE ESTERASE, URINE LARGE (NEGATIVE); NITRITE,URINE POSITIVE (NEGATIVE); OCCULT BLOOD,URINE SMALL (NEGATIVE); PH,URINE 5.5 PH (5.0-7.5); PROTEIN,URINE 30 mg/dL (NEGATIVE); UROBILINOGEN,URINE 0.2 (NORMAL) E.U./dL (NORMAL)
[2018-02-12 23:35] LABS: CLARITY,URINE SL. CLOUDY (CLEAR)
[2018-02-12 23:39] LABS: BACTERIA,URINE Few /HPF (None Seen); SQUAMOUS EPITHELIAL CELL,UR RARE Squamous (<= Few)
[2018-02-12 23:40] LABS: AMORPHOUS SEDIMENT,UR Few /LPF
--- NOTE | 2018-02-12 23:52 | XRAY Report ---
Reason: hypotension, hypoxia Procedure Date: 02/12/2018 Accession Number: [id number] / [id number] Procedure: XR - Chest 1 View X-Ray CPT Code: 15751 FULL RESULT: EXAM: CHEST RADIOGRAPHY EXAM DATE: 02/12/2018 11:43 PM. CLINICAL HISTORY: Hypotension, hypoxia. COMPARISON: CHEST 1 VIEW 04/25/2017 6:49 PM. TECHNIQUE: 1 view. FINDINGS: Lungs/Pleura: No focal opacities evident. No pleural effusion. No pneumothorax. Mediastinum: Within exam limitations, the cardiomediastinal contour is normal. Other: None. IMPRESSION: Normal single view chest. RADIA
[2018-02-12 23:53] LABS: BASOPHILS % (AUTO) 0.5 %; EOSINOPHILS # (AUTO) 0.4 10^3/uL (0.0-0.7); EOSINOPHILS % (AUTO) 6.4 %; HGB - HEMOGLOBIN 10.2 g/dL (12.0-16.0); LYMPHOCYTES % (AUTO) 32.6 %; MEAN CORPUSCULAR HEMOGLOBIN 27.7 pg (27.0-31.0); MEAN CORPUSCULAR VOLUME 81.4 fL (81.0-99.0); MEAN PLATELET VOLUME 8.2 fL (7.9-10.8); MONOCYTES # (AUTO) 0.6 10^3/uL (0.0-1.0); MONOCYTES % (AUTO) 10.4 %; NEUTROPHILS # (AUTO) 3.1 10^3/uL (1.5-6.6); NEUTROPHILS % (AUTO) 50.1 %; PLT - PLATELET COUNT 203 10^3/uL (130-450); RED BLOOD COUNT 3.69 10^6/uL (4.20-5.40); RED CELL DISTRIBUTION WIDTH 15.2 % (12.0-15.0); WHITE BLOOD COUNT 6.2 x10^3/uL (4.8-10.8)
[2018-02-13] MEDS ORDERED: NITROFURANTOIN MACRO 100 MG CAPSULE PO STA (00:04)
[2018-02-13 00:05] LABS: ALBUMIN/GLOBULIN RATIO 0.9 (1.0-2.2); BILIRUBIN,TOTAL 0.5 mg/dL (0.2-1.0); CALCIUM 8.2 mg/dL (8.5-10.3); CREATININE 2.4 mg/dL (0.4-1.0); MAGNESIUM 2.2 mg/dL (1.7-2.8); PHOSPHORUS 5.3 mg/dL (2.5-4.6); TOTAL PROTEIN 6.4 g/dL (6.7-8.2)
[2018-02-13] MEDS ORDERED: diphenhydrAMINE 25 MG CAPSULE PO PRN (00:26)
--- NOTE | 2018-02-13 00:26 | ED Physician Documentation ---
History of Present Illness - Stated complaint Stated Complaint: FALL - Chief complaint Chief Complaint: General - History obtained from History obtained from: EMS - History of Present Illness Timing: Today - Additonal information Additional information: Patient is a 72 year old female with a history of dementia among multiple other co-morbidiities who is presenting to the emergency department after being found down at the senior care. According to ems, they were called after the patient was found to have fallen face forward. when ems arrived patient was found to be hypotensive. patient is currently being treated for a urinary tract infection. Review of Systems Unable to obtain: Dementia PD PAST MEDICAL HISTORY - Past Medical History Past Medical History: Yes Cardiovascular: Hypertension, High cholesterol Respiratory: Asthma, Pneumonia Neuro: Headaches, Peripheral neuropathy Endocrine/Autoimmune: Type 2 diabetes GI: GERD, C.difficile, Chronic constipation : Chronic bladder infection, Kidney stones, Other HEENT: Other Psych: Depression, Anxiety, Schizophrenia Musculoskeletal: Osteoarthritis, Chronic back pain, Other Derm: Other - Past Surgical History Past Surgical History: Yes General: Appendectomy, Colonoscopy, EGD Ortho: Carpal Tunnel surgery, Spine surgery, Amputation, Other /EXTRACT MIXER: Hysterectomy, Other Cardiovascular: Other - Present Medications Home Medications: Ambulatory Orders Medication Instructions Recorded Confirmed Aspirin Chewable [[place]avio 81 mg PO DAILY 09/29/13 02/12/18 Aspirin] Docusate Sodium 250 mg PO BID 09/29/13 02/12/18 Omeprazole [PriLOSEC] 20 mg PO DAILY 09/29/13 02/12/18 diltiaZEM CD [Cardizem Cd] 240 mg PO BID 09/29/13 02/12/18 Multivitamin [Multivitamins] 1 each PO DAILY 06/06/14 02/12/18 Potassium Chloride 30 meq PO DAILY 06/06/14 02/12/18 Losartan [Cozaar] 100 mg PO DAILY 02/14/17 02/12/18 QUEtiapine [SEROquel] 400 mg PO QPM 02/14/17 02/12/18 Senna [Senokot] 17.2 mg PO BID 02/14/17 02/12/18 diphenhydrAMINE [Benadryl] 25 mg PO DAILY PRN 02/14/17 02/12/18 tiZANidine [Zanaflex] 4 mg PO TID 02/14/17 02/12/18 DULoxetine [Cymbalta] 120 mg PO DAILY 02/19/17 02/12/18 Furosemide [Lasix] 40 mg PO BID 04/25/17 02/12/18 Acetaminophen 500 mg PO Q6HR PRN 10/06/17 02/12/18 Meclizine HCl [Motion Sickness 25 mg PO BID PRN 10/06/17 02/12/18 Relief] Melatonin 3 mg PO QPM 10/06/17 02/12/18 Polyethylene Glycol 3350 [Miralax] 17 gm PO DAILY 10/06/17 02/12/18 Pregabalin [Lyrica] 100 mg PO TID 10/06/17 02/12/18 oxyCODONE/ACET 5/325 [Percocet 5 5 mg PO TID 10/06/17 02/12/18 mg/325 mg] Albuterol Sulfate [Proair Hfa 2 puffs INH Q4HR MDD four times 11/19/17 02/12/18 Inhaler] Biofreeze 1 applic TOP TID 12/25/17 02/12/18 Bisacodyl [Dulcolax] 5 mg PO DAILY 12/25/17 02/12/18 Hydrocodone/Acetaminophen 1 mg PO TID PRN 12/25/17 02/12/18 [Hydrocodone-Acetamin 10-325 mg] Sucralfate [Carafate] 1 gm PO PRN PRN MDD mouth 12/25/17 02/12/18 Nystatin [Nystop] 1 applic TOP BID MDD groin folds 01/07/18 02/12/18 - Allergies Allergies/Adverse Reactions: Allergies Allergy/AdvReac Type Severity Reaction Status Date / Time erythromycin base Allergy Severe Anaphylaxis Verified 02/12/18 23:19 [Erythromycin Base] Penicillins Allergy Severe Anaphylaxis Verified 02/12/18 23:19 Sulfa (Sulfonamide Allergy Severe Redness/High Verified 02/12/18 23:19 Antibiotics) fever lisinopril Allergy Unknown Unknown Verified 02/12/18 23:19 ceftriaxone Allergy Rash Verified 02/12/18 23:19 quinidine Allergy Rash Verified 02/12/18 23:19 - Social History Does the pt smoke?: No Smoking Status: Never smoker Does the pt drink ETOH?: No Does the pt have substance abuse?: No - Immunizations Immunizations are current?: No Immunizations: TDAP >10years/unknown - POLST Patient has POLST: Yes POLST Status: Full Code PD ED PE NORMAL - Vitals Vital signs reviewed: Yes - Neck Neck: Supple, no meningeal sign - Cardiac Cardiac: RRR - Abdomen Abdomen: Soft, Non distended PD ED PE EXPANDED - General General: Other (easily arousable) - HEENT HEENT: Head injury, PERRL HEENT Visual: 1 - bruising - Respiratory Respiratory: Decreased breath sounds, Right lower lobe, Left lower lobe - Abdomen Abdomen: Other (suprapubic catheter in place, mild surrounding erythema) - Derm Derm: Bruising - Extremities Extremities: Right knee (bka), Pedal edema L Results - Vitals Vitals: Vital Signs - 24 hr 02/12/18 02/12/18 23:09 23:45 Temperature 36.3 C L Heart Rate 58 L 54 L Respiratory 16 10 L Rate Blood Pressure 84/54 L 86/50 L O2 Saturation 88 L 96 Oxygen O2 Source Nasal cannula - Labs Labs: Laboratory Tests 02/12/18 02/12/18 02/12/18 23:20 23:40 23:40 WBC 6.2 RBC 3.69 L Hgb 10.2 L Hct 30.1 L MCV 81.4 MCH 27.7 MCHC 34.0 RDW 15.2 H Plt Count 203 MPV 8.2 Neut # (Auto) 3.1 Lymph # (Auto) 2.0 [place] # (Auto) 0.6 Eos # (Auto) 0.4 Baso # (Auto) 0.0 Absolute Nucleated RBC 0.00 Nucleated RBC % 0.0 Sodium 135 Potassium 4.1 Chloride 98 L Carbon Dioxide 30 Anion Gap 7.0 BUN 45 H Creatinine 2.4 H Estimated GFR (MDRD) 20 L Glucose 111 H Lactic Acid Calcium 8.2 L Phosphorus 5.3 H Magnesium 2.2 Total Bilirubin 0.5 AST 37 ALT 26 Alkaline Phosphatase 68 Troponin I B-Natriuretic Peptide Total Protein 6.4 L Albumin 3.0 L Globulin 3.4 Albumin/Globulin Ratio 0.9 L Lipase 55 H Urine Color YELLOW Urine Clarity SL. CLOUDY Urine pH 5.5 Ur Specific [place] 1.015 Urine Protein 30 H Urine Glucose (UA) NEGATIVE Urine Ketones NEGATIVE Urine Occult Blood SMALL H Urine Nitrite POSITIVE H Urine Bilirubin NEGATIVE Urine Urobilinogen 0.2 (NORMAL) Ur Leukocyte Esterase LARGE H Urine RBC 6-10 H Urine WBC >25 H Ur Squamous Epith Cells RARE Squamous Amorphous Sediment Few Urine Bacteria Few Ur Microscopic Review INDICATED Urine Culture Comments INDICATED 02/12/18 02/12/18 02/12/18 23:40 23:40 23:40 WBC RBC Hgb Hct MCV MCH MCHC RDW Plt Count MPV Neut # (Auto) Lymph # (Auto) [place] # (Auto) Eos # (Auto) Baso # (Auto) Absolute Nucleated RBC Nucleated RBC % Sodium Potassium Chloride Carbon Dioxide Anion Gap BUN Creatinine Estimated GFR (MDRD) Glucose Lactic Acid 0.9 Calcium Phosphorus Magnesium Total Bilirubin AST ALT Alkaline Phosphatase Troponin I < 0.04 B-Natriuretic Peptide 17 Total Protein Albumin Globulin Albumin/Globulin Ratio Lipase Urine Color Urine Clarity Urine pH Ur Specific [place] Urine Protein Urine Glucose (UA) Urine Ketones Urine Occult Blood Urine Nitrite Urine Bilirubin Urine Urobilinogen Ur Leukocyte Esterase Urine RBC Urine WBC Ur Squamous Epith Cells Amorphous Sediment Urine Bacteria Ur Microscopic Review Urine Culture Comments - Rads (name of study) chest x-ray Radiology: Final report received (no acute pathology) PD MEDICAL DECISION MAKING - ED course Complexity details: reviewed old records, reviewed results, re-evaluated patient, considered differential, d/w applications sales consultant ED course: Patient was seen and examined at bedside. patient was placed on a monitor and was found to be hypotensive. IV access was gained and labs were drawn. patient was started on a fluid bolus. labs were drawn and urine was collected. chest x-ray was performed and showed no acute abnormalities. Patient's blood pressure improved with the original bolus but was still hypotensive so a second liter was started. Patient's urine was indeed the source of infection and based on the most previous culture patient was started on unasyn. No imaging of the head was performed and patient was DNR/DNI with limited interventions and it would not change the patient's plan of care. Hospitalist was contacted and the case was discussed with him and patient was admitted for further evaluation and care. - Sepsis Event Vital Signs: Vital Signs - 24 hr 02/12/18 02/12/18 23:09 23:45 Temperature 36.3 C L Heart Rate 58 L 54 L Respiratory 16 10 L Rate Blood Pressure 84/54 L 86/50 L O2 Saturation 88 L 96 Oxygen O2 Source Nasal cannula Departure - Departure Disposition: 66 [facility] DC/Xfer Clinical Impression: Complicated UTI (urinary tract infection) Condition: Stable
[2018-02-13] MEDS ORDERED: ONDANSETRON 4 MG/2 ML VIAL IVP PRN (00:30)
[2018-02-13] MEDS ORDERED: ACETAMINOPHEN 325 MG TABLET PO PRN (00:30)
[2018-02-13] MEDS ORDERED: PROCHLORPERAZINE 10 MG/2 ML VIAL IVP PRN (00:30)
[2018-02-13] MEDS ORDERED: SODIUM CHLORIDE FLUSH 0.9% 10 ML SYRINGE IVP PRN (00:30)
[2018-02-13] MEDS ORDERED: PROMETHAZINE 25 MG/1 ML VIAL IM PRN (00:30)
--- NOTE | 2018-02-13 00:39 | HISTORY & PHYSICAL EXAMINATION ---
Chief Complaint - Chief Complaint Chief Complaint: Fall History of Present Illness - Admitted From Admitted From:: Emergency Department - History Obtained From Records Reviewed: Yes History obtained from: Medical records Exam Limitations: Patient is encephalopathic and has dementia. Cannot provide history - History of Present Illness HPI Comment/Other: Patient is a 72-year-old female resident of [facility] with a past medical history significant for dementia, chronic indwelling suprapubic catheter with recurrent urinary tract infections, type 2 diabetes, she is status post left above-knee amputation, hypertension, chronic back pain, major depressive disorder and generalized anxiety she was brought into the emergency department this evening after she was found on the floor in her room at [facility]. It appears that the patient had an unwitnessed fall out of her wheelchair and was found 10th at a 90 degree angle in the wheelchair with her face on the floor. The patient's indwelling suprapubic catheter was still in place. The patient was subsequently brought in to the emergency department and on presentation was extremely lethargic. The patient was not able to provide any history. She could not even tell me her name and did not know where she was. She was responsive to verbal stimuli and could open her eyes but would fall back asleep very quickly. The patient did state she was in pain but could not describe where her pain was. She could not otherwise give me any complaints or history. On presentation to the emergency department the patient was afebrile, mildly bradycardic with a heart rate of 58 and hypotensive with a blood pressure of 84/54 and hypoxic with O2 saturation of 88% on room air. The patient was given 1 L of fluid in the emergency department and blood pressure did improve to 104/56 but was still borderline. The patient's lab work did not reveal any leukocytosis, it did reveal a chronic anemia and acute kidney injury with a creatinine of 2.4 which was elevated from 1.0 just a month before. The patient's lactic acid was negative and her troponin was negative. The patient's urinalysis did reveal greater than 25 WBCs with positive nitrite, large leukocy te Estrace and bacteria. The patient did undergo a chest x-ray which was normal. Given the patient's presentation with lethargy, hypotension and acute kidney injury she was felt to be septic secondary to a urinary tract infection and was admitted to the medical navas for IV antibiotics and IV fluids. History - Past Medical History Cardiovascular: reports: Hypertension, High cholesterol Respiratory: reports: Asthma, Pneumonia Neuro: reports: Headaches, Peripheral neuropathy Endocrine/Autoimmune: reports: Type 2 diabetes GI: reports: GERD, C.difficile, Chronic constipation : reports: Chronic bladder infection, Kidney stones, Other HEENT: reports: Other Psych: reports: Depression, Anxiety, Schizophrenia Musculoskeletal: reports: Osteoarthritis, Chronic back pain, Other Derm: reports: Other MRSA Hx?: Yes Other Past Medical History: 1. Recurring urinary tract infections. 2. Chronic indwelling suprapubic catheter. 3. Type 2 diabetes mellitus. 4. Hypertension. 5. Insomnia. 6. Chronic back pain. 7. Generalized anxiety. 8. Left above-knee amputation. 9. Major depressive disorder. 10. Hyperlipidemia. 11. GERD. 12. Dementia - Past Surgical History General: reports: Appendectomy, Colonoscopy, EGD Ortho: reports: Carpal Tunnel surgery, Spine surgery, Amputation, Other /ADMINISTRATOR: reports: Hysterectomy, Other Cardiovascular: reports: Other - Family & Social History Family History: Mother: (age 68; age 74 reports pneumonia), Hypertension, Father: , Brother: Alive and Well (one brother cellulitis;06/20 passed per her report) Living arrangement: custodial Living Situation: Alone Social History Notes: The patient is a resident at [facility]. She has 4 daughters. She has been living on [facility] for the last 10 years. She states that she does not smoke tobacco, drink alcohol or use any illicit drugs. - Substance History Use: Uses substance without health or social issues: NONE - POLST Patient has POLST: Yes POLST Status: DNR (Comfort measures only) Meds/Allgy - Home Medications Home Medications: Ambulatory Orders Medication Instructions Recorded Confirmed Aspirin Chewable [St Flavio 81 mg PO DAILY 09/29/13 02/12/18 Aspirin] Docusate Sodium 250 mg PO BID 09/29/13 02/12/18 Omeprazole [PriLOSEC] 20 mg PO DAILY 09/29/13 02/12/18 diltiaZEM CD [Cardizem Cd] 240 mg PO BID 09/29/13 02/12/18 Multivitamin [Multivitamins] 1 each PO DAILY 06/06/14 02/12/18 Potassium Chloride 30 meq PO DAILY 06/06/14 02/12/18 Losartan [Cozaar] 100 mg PO DAILY 02/14/17 02/12/18 QUEtiapine [SEROquel] 400 mg PO QPM 02/14/17 02/12/18 Senna [Senokot] 17.2 mg PO BID 02/14/17 02/12/18 diphenhydrAMINE [Benadryl] 25 mg PO DAILY PRN 02/14/17 02/12/18 tiZANidine [Zanaflex] 4 mg PO TID 02/14/17 02/12/18 DULoxetine [Cymbalta] 120 mg PO DAILY 02/19/17 02/12/18 Furosemide [Lasix] 40 mg PO BID 04/25/17 02/12/18 Acetaminophen 500 mg PO Q6HR PRN 10/06/17 02/12/18 Meclizine HCl [Motion Sickness 25 mg PO BID PRN 10/06/17 02/12/18 Relief] Melatonin 3 mg PO QPM 10/06/17 02/12/18 Polyethylene Glycol 3350 [Miralax] 17 gm PO DAILY 10/06/17 02/12/18 Pregabalin [Lyrica] 100 mg PO TID 10/06/17 02/12/18 oxyCODONE/ACET 5/325 [Percocet 5 5 mg PO TID 10/06/17 02/12/18 mg/325 mg] Albuterol Sulfate [Proair Hfa 2 puffs INH Q4HR MDD four times 11/19/17 02/12/18 Inhaler] Biofreeze 1 applic TOP TID 12/25/17 02/12/18 Bisacodyl [Dulcolax] 5 mg PO DAILY 12/25/17 02/12/18 Hydrocodone/Acetaminophen 1 mg PO TID PRN 12/25/17 02/12/18 [Hydrocodone-Acetamin 10-325 mg] Sucralfate [Carafate] 1 gm PO PRN PRN MDD mouth 12/25/17 02/12/18 Nystatin [Nystop] 1 applic TOP BID MDD groin folds 01/07/18 02/12/18 - Allergies Allergies/Adverse Reactions: Allergies Allergy/AdvReac Type Severity Reaction Status Date / Time erythromycin base Allergy Severe Anaphylaxis Verified 02/12/18 23:19 [Erythromycin Base] Penicillins Allergy Severe Anaphylaxis Verified 02/12/18 23:19 Sulfa (Sulfonamide Allergy Severe Redness/High Verified 02/12/18 23:19 Antibiotics) fever lisinopril Allergy Unknown Unknown Verified 02/12/18 23:19 ceftriaxone Allergy Rash Verified 02/12/18 23:19 quinidine Allergy Rash Verified 02/12/18 23:19 Review of Systems - Other Findings Other Findings: Unable to obtain a comprehensive review of systems secondary to patient's dementia and encephalopathy. The pertinent positives and negatives are stated above in the HPI. Prior Level of Functionality: The patient is a resident of [facility] and is dependent for most of her activities of daily living. Exam - Vital Signs Reviewed Vital Signs: Yes Vital Signs: Vital Signs x48h Temp Pulse Resp BP Pulse Ox 02/12/18 23:45 54 L 10 L 86/50 L 96 02/12/18 23:09 36.3 C L 58 L 16 84/54 L 88 L - Physical Exam General Appearance: positive: Lethargic, Other (Opens eyes to verbal stimuli and follows commands but does not answer questions appropriately) Eyes Bilateral: positive: Normal inspection, PERRL, EOMI, No lid inflammation, Conjunctivae nml, No scleral icterus ENT: positive: ENT inspection nml, Pharynx nml, Dry mucous membranes. negative: Purulent nasal drainage, Pharyngeal erythema, Oral lesions Neck: positive: Nml inspection, Thyroid nml, No JVD, Trachea midline. negative: Thyromegaly, Lymphadenopathy (R), Lymphadenopathy (L), Stiff neck, Carotid bruit, Tracheal deviation Respiratory: positive: Chest non-tender, No respiratory distress, Breath sounds nml. negative: Wheezes, Rales, Rhonchi Cardiovascular: positive: No murmur, No gallop, Bradycardia Peripheral Pulses: positive: 2+ Abdomen: positive: No organomegaly, Nml bowel sounds, No distention, Tenderness (Soft and mildly tender in the epigastric area). negative: Guarding, Rebound, Hepatomegaly Back: positive: Nml inspection. negative: CVA tenderness (R), CVA tenderness (L) Skin: positive: Color nml, No rash, Warm, Dry. negative: Cyanosis, Diaphoresis, Pallor, Skin rash Extremities: positive: Non-tender, Full ROM, Pedal edema (Right leg mild), Other (Left leg above knee amputation with normal appearing stump) Neurologic/Psychiatric: positive: CN's nml (2-12), Motor nml, Disoriented to person, Disoriented to place, Disoriented to time, Other (Lethargic) Conclusion/Plan - Problem List (1) Sepsis Conclusion/Plan: Patient was brought to the emergency department after a fall. On presentation the patient was lethargic and has history of dementia and was unable to provide any history. The patient does have a chronic indwelling suprapubic catheter with recurrent urinary tract infections. The patient was found to have acute kidney injury and was hypotensive on presentation. Patient did not have a fever or elevated white blood cell count but appeared to have endorgan damage with lethargy and acute kidney injury as well as with hypotension. The patient was found to have a positive urine analysis concerning for ongoing infection. Given the patient's endorgan damage this was considered sepsis. She was given IV fluids and antibiotics in the emergency department and admitted to the medical navas. Plan: IV fluids IV vancomycin and cefepime given the patient's previous cultures of the urine Blood cultures Urine culture Monitor lactic acid Qualifiers: Sepsis type: Pseudomonas Qualified Code(s): A41.52 - Sepsis due to Pseudomonas (2) Urinary tract infection Conclusion/Plan: Patient presented with sepsis which appears to be secondary to urinary tract infection. Patient has a history of an indwelling suprapubic catheter and has history of recurrent urinary tract infections. The patient has grown multiple different organisms on urine cultures in the past. These include MRSA and Pseudomonas. The patient did have a recent urine culture from 02/01/2018 which grew enterococcus faecalis which was only susceptible to penicillins, vancomycin, tigecycline and and nitrofurantoin. It appears the patient was on nitrofurantoin at [facility] but has developed sepsis despite this. Plan: IV vancomycin and cefepime IV fluids Blood culture Urine culture Qualifiers: Urinary tract infection type: catheter-associated UTI Indwelling urinary catheter type: cystostomy catheter Encounter type: subsequent encounter Qualified Code(s): T83.510D - Infection and inflammatory reaction due to cystostomy catheter, subsequent encounter; N39.0 - Urinary tract infection, site not specified; N39.0 - Urinary tract infection, site not specified (3) Metabolic encephalopathy Conclusion/Plan: The patient appears to have metabolic encephalopathy which appears to be secondary to ongoing sepsis and urinary tract infection. The patient does have dementia at baseline but is extremely lethargic and unable to provide any history on presentation. This does not appear to be her baseline. She will be treated for her infection and given fluids in hopes that she does improve her mentation. (4) Acute kidney injury Conclusion/Plan: On presentation to the emergency department the patient has acute kidney injury with a creatinine of 2.4 which is elevated from a baseline of 1.0 just a month earlier. The patient appears to have prerenal azotemia as she does have a elevated BUN of 45 and also appears very dry on examination. The patient likely has developed this acute kidney injury secondary to ongoing sepsis. Plan: IV fluids Hold diuretics Monitor creatinine Avoid nephrotoxic agents (5) Diabetes Conclusion/Plan: Patient has a history of diabetes which appears to be diet controlled at this time. The patient does not appear to be on any insulin or oral diabetic agents. The patient's blood glucose on presentation is 111. At this point we will not start the patient on any insulin. We will get an A1c if that is elevated we will consider placing her on sliding scale insulin. At this time we will just check blood glucose daily and place her on a diabetic diet. 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 For now we will hold all of the patient's antihypertensive medications. Patient will be given IV fluids and we will continue to monitor the blood pressure once a blood pressure does become elevated we will consider restarting her antihypertensives. Qualifiers: Hypertension type: essential hypertension Qualified Code(s): I10 - Essential (primary) hypertension (7) Depression Conclusion/Plan: The patient has a history of depression and is on Cymbalta and Seroquel. We will continue these medications while she is hospitalized. Qualifiers: Depression Type: unspecified Qualified Code(s): F32.9 - Major depressive disorder, single episode, unspecified - Lab Results Lab results reviewed: Yes Fish Bones: 02/12/18 23:40 02/12/18 23:40 Other Lab Results: Laboratory Results WBC 6.2 x10^3/uL (4.8-10.8) 02/12/18 23:40 RBC 3.69 10^6/uL (4.20-5.40) L 02/12/18 23:40 Hgb 10.2 g/dL (12.0-16.0) L 02/12/18 23:40 Hct 30.1 % (37.0-47.0) L 02/12/18 23:40 MCV 81.4 fL (81.0-99.0) 02/12/18 23:40 MCH 27.7 pg (27.0-31.0) 02/12/18 23:40 MCHC 34.0 g/dL (32.0-36.0) 02/12/18 23:40 RDW 15.2 % (12.0-15.0) H 02/12/18 23:40 Plt Count 203 10^3/uL (130-450) 02/12/18 23:40 MPV 8.2 fL (7.9-10.8) 02/12/18 23:40 Neut # (Auto) 3.1 10^3/uL (1.5-6.6) 02/12/18 23:40 Lymph # (Auto) 2.0 10^3/uL (1.5-3.5) 02/12/18 23:40 [place] # (Auto) 0.6 10^3/uL (0.0-1.0) 02/12/18 23:40 Eos # (Auto) 0.4 10^3/uL (0.0-0.7) 02/12/18 23:40 Baso # (Auto) 0.0 10^3/uL (0.0-0.1) 02/12/18 23:40 Absolute Nucleated RBC 0.00 x10^3/uL 02/12/18 23:40 Nucleated RBC % 0.0 /100WBC 02/12/18 23:40 Sodium 135 mmol/L (135-145) 02/12/18 23:40 Potassium 4.1 mmol/L (3.5-5.0) 02/12/18 23:40 Chloride 98 mmol/L (101-111) L 02/12/18 23:40 Carbon Dioxide 30 mmol/L (21-32) 02/12/18 23:40 Anion Gap 7.0 (6-13) 02/12/18 23:40 BUN 45 mg/dL (6-20) H 02/12/18 23:40 Creatinine 2.4 mg/dL (0.4-1.0) H 02/12/18 23:40 Estimated GFR (MDRD) 20 (>89) L 02/12/18 23:40 Glucose 111 mg/dL (70-100) H 02/12/18 23:40 Lactic Acid 0.9 mmol/L (0.5-2.2) 02/12/18 23:40 Calcium 8.2 mg/dL (8.5-10.3) L 02/12/18 23:40 Phosphorus 5.3 mg/dL (2.5-4.6) H 02/12/18 23:40 Magnesium 2.2 mg/dL (1.7-2.8) 02/12/18 23:40 Total Bilirubin 0.5 mg/dL (0.2-1.0) 02/12/18 23:40 AST 37 IU/L (10-42) 02/12/18 23:40 ALT 26 IU/L (10-60) 02/12/18 23:40 Alkaline Phosphatase 68 IU/L (42-121) 02/12/18 23:40 Troponin I < 0.04 ng/mL (<0.49) 02/12/18 23:40 B-Natriuretic Peptide 17 pg/mL (5-100) 02/12/18 23:40 Total Protein 6.4 g/dL (6.7-8.2) L 02/12/18 23:40 Albumin 3.0 g/dL (3.2-5.5) L 02/12/18 23:40 Globulin 3.4 g/dL (2.1-4.2) 02/12/18 23:40 Albumin/Globulin Ratio 0.9 (1.0-2.2) L 02/12/18 23:40 Lipase 55 U/L (22-51) H 02/12/18 23:40 Urine Color YELLOW 02/12/18 23:20 Urine Clarity SL. CLOUDY (CLEAR) 02/12/18 23:20 Urine pH 5.5 PH (5.0-7.5) 02/12/18 23:20 Ur Specific [place] 1.015 (1.002-1.030) 02/12/18 23:20 Urine Protein 30 mg/dL (NEGATIVE) H 02/12/18 23:20 Urine Glucose (UA) NEGATIVE mg/dL (NEGATIVE) 02/12/18 23:20 Urine Ketones NEGATIVE mg/dL (NEGATIVE) 02/12/18 23:20 Urine Occult Blood SMALL (NEGATIVE) H 02/12/18 23:20 Urine Nitrite POSITIVE (NEGATIVE) H 02/12/18 23:20 Urine Bilirubin NEGATIVE (NEGATIVE) 02/12/18 23:20 Urine Urobilinogen 0.2 (NORMAL) E.U./dL (NORMAL) 02/12/18 23:20 Ur Leukocyte Esterase LARGE (NEGATIVE) H 02/12/18 23:20 Urine RBC 6-10 /HPF (0-5) H 02/12/18 23:20 Urine WBC >25 /HPF (0-5) H 02/12/18 23:20 Ur Squamous Epith Cells RARE Squamous (<= Few) 02/12/18 23:20 Amorphous Sediment Few /LPF 02/12/18 23:20 Urine Bacteria Few /HPF (None Seen) 02/12/18 23:20 Ur Microscopic Review INDICATED 02/12/18 23:20 Urine Culture Comments INDICATED 02/12/18 23:20 - Diagnostic Imaging Results Diagnostic Imaging Results: positive: Final report reviewed Diagnostic Imaging Results Comments: Chest x-ray Impression: Normal single view chest Core Measures - Anticipated LOS I expect patient to be DC'd or transferred within 96 hours.: Yes - DVT/VTE - Prophylaxis VTE/DVT Prophylaxis med ordered at admit?: Yes
[2018-02-13] MEDS ORDERED: CEFEPIME 2 GM in SODIUM CHLORIDE 0.9% MINIBAG 100 ML IV SCH ×2 (01:00→09:00)
[2018-02-13] MEDS ORDERED: VANCOMYCIN PER PHARMACY 1 GM in SODIUM CHLORIDE 0.9% 250 ML IV SCH (01:00)
[2018-02-13] MEDS: SODIUM CHLORIDE 0.9% 1,000 ML IV SCH ×3 (01:44→18:41)
[2018-02-13] MEDS: SODIUM CHLORIDE FLUSH 0.9% 10 ML SYRINGE IVP SCH ×3 (01:47→16:33)
[2018-02-13] MEDS ORDERED: VANCOMYCIN INJ 1.75 GM in SODIUM CHLORIDE 0.9% 500 ML IV SCH (02:00)
[2018-02-13] MEDS ORDERED: WATER FOR INJECTION,STERILE 20 ML ONE ×2 (02:34→02:35)
[2018-02-13] MEDS ORDERED: MIN OIL/DIMETHICON/COCONUT OIL 92 GM TUBE TOP PRN (02:36)
[2018-02-13] MEDS: PANTOPRAZOLE 40 MG TABLET PO SCH (06:36)
[2018-02-13] MEDS: tiZANidine 4 MG TABLET PO SCH ×3 (06:37→21:08)
[2018-02-13] MEDS: PREGABALIN 100 MG CAPSULE PO SCH ×3 (06:37→21:08)
[2018-02-13] MEDS: HEPARIN 5,000 UNIT/ML VIAL SUBQ SCH ×3 (08:19→21:11)
[2018-02-13] MEDS: POLYETHYLENE GLYCOL 3350 17 GM PACKET PO SCH (08:20)
[2018-02-13] MEDS: SACCHAROMYCES BOULARDII 250 MG CAPSULE PO SCH ×2 (08:20→16:32)
[2018-02-13] MEDS: MULTIVITAMIN TABLET PO SCH (08:20)
[2018-02-13] MEDS: diltiaZEM CD 240 MG CAPSULE PO SCH ×2 (08:20→21:08)
[2018-02-13] MEDS: DULoxetine 30 MG CAPSULE PO SCH (08:20)
[2018-02-13] MEDS: NYSTATIN POWDER 15 GM TOP SCH ×2 (08:28→21:11)
[2018-02-13] MEDS: ASPIRIN CHEW 81 MG TABLET PO SCH (08:28)
[2018-02-13 09:31] LABS: BASOPHILS % (AUTO) 0.6 %; EOSINOPHILS # (AUTO) 0.3 10^3/uL (0.0-0.7); EOSINOPHILS % (AUTO) 5.1 %; HGB - HEMOGLOBIN 10.5 g/dL (12.0-16.0); LYMPHOCYTES # (AUTO) 0.7 10^3/uL (1.5-3.5); LYMPHOCYTES % (AUTO) 13.6 %; MEAN CORPUSCULAR HEMOGLOBIN 27.4 pg (27.0-31.0); MEAN CORPUSCULAR HGB CONC 33.7 g/dL (32.0-36.0); MEAN CORPUSCULAR VOLUME 81.2 fL (81.0-99.0); MEAN PLATELET VOLUME 8.1 fL (7.9-10.8); MONOCYTES # (AUTO) 0.4 10^3/uL (0.0-1.0); MONOCYTES % (AUTO) 8.2 %; NEUTROPHILS # (AUTO) 3.7 10^3/uL (1.5-6.6); NEUTROPHILS % (AUTO) 72.5 %; PLT - PLATELET COUNT 198 10^3/uL (130-450); RED BLOOD COUNT 3.83 10^6/uL (4.20-5.40); RED CELL DISTRIBUTION WIDTH 15.4 % (12.0-15.0); WHITE BLOOD COUNT 5.1 x10^3/uL (4.8-10.8)
[2018-02-13 09:43] LABS: ALBUMIN 2.9 g/dL (3.2-5.5); ALBUMIN/GLOBULIN RATIO 0.9 (1.0-2.2); BILIRUBIN,TOTAL 0.7 mg/dL (0.2-1.0); CALCIUM 8.1 mg/dL (8.5-10.3); CREATININE 1.8 mg/dL (0.4-1.0); MAGNESIUM 2.1 mg/dL (1.7-2.8); PHOSPHORUS 3.8 mg/dL (2.5-4.6); TOTAL PROTEIN 6.2 g/dL (6.7-8.2)
[2018-02-13 09:48] LABS: HB2 TOTAL 10.8 g/dL; HEMOGLOBIN A1C 0.4 g/dL; HEMOGLOBIN A1C % 5.5 % (4.6-6.2)
[2018-02-13] MEDS: oxyCODONE 5 MG TABLET PO PRN ×3 (12:42→21:08)
[2018-02-13] MEDS: CEFEPIME 1 GM in SODIUM CHLORIDE 0.9% MINIBAG 100 ML IV SCH (14:01)
--- NOTE | 2018-02-13 14:41 | PROVIDER PROGRESS NOTE ---
Subjective - Prog Note Date Prog Note Date: 02/13/18 - Subjective Pt reports feeling: Improved Subjective: pt report she feel better, she had a good sleep. pt is alert and oriented plus two, self and location. She denies fever, chill, chest pain. Current Medications - Current Medications Current Medications: Active Medications Acetaminophen (Tylenol) 650 mg PO Q4HR PRN PRN Reason: Pain 1 to 4 Aspirin ([place] Flavio Aspirin) 81 mg PO DAILY [facility] Last Admin: 02/13/18 08:28 Dose: 81 mg Diltiazem HCl (Cardizem Cd) 240 mg PO BID [facility] Last Admin: 02/13/18 08:20 Dose: 240 mg Diphenhydramine HCl (Benadryl) 25 mg PO DAILY PRN PRN Reason: ITCHING Duloxetine HCl (Cymbalta) 120 mg PO DAILY [facility] Last Admin: 02/13/18 08:20 Dose: 120 mg Gabapentin (Neurontin) 100 mg PO TID [facility] Heparin Sodium (Porcine) () 5,000 unit SUBQ BID [facility] Last Admin: 02/13/18 11:38 Dose: Not Given Sodium Chloride (Normal Saline 0.9%) 1,000 mls @ 100 mls/hr IV .Q10H [facility] Last Admin: 02/13/18 08:18 Dose: 100 mls/hr Vancomycin HCl 1 gm/ Sodium (Chloride) 250 mls @ 166.667 mls/hr IV Q24H [facility] Cefepime HCl 1 gm/ Sodium (Chloride) 100 mls @ 200 mls/hr IV Q12H [facility] Last Admin: 02/13/18 14:01 Dose: 200 mls/hr Mineral Oil (Cavilon) 1 applic TOP PRN PRN PRN Reason: Skin Care Multivitamins (Theragran) 1 tab PO DAILY [facility] Last Admin: 02/13/18 08:20 Dose: 1 tab Nystatin (Nystop) 1 applic TOP BID [facility] Last Admin: 02/13/18 08:28 Dose: 1 applic Ondansetron HCl (Zofran Inj) 4 mg IVP Q6HR PRN PRN Reason: Nausea / Vomiting Oxycodone HCl (Roxicodone) 5 mg PO Q4HR PRN PRN Reason: Pain 5 to 7 Last Admin: 02/13/18 12:42 Dose: 5 mg Oxycodone HCl (Roxicodone) 10 mg PO Q4HR PRN PRN Reason: Pain 8 to 10 Pantoprazole Sodium (Protonix) 40 mg PO QDAC [facility] Last Admin: 02/13/18 06:36 Dose: 40 mg Melatonin 3 Mg 3 each PO QPM [facility] Polyethylene Glycol (Miralax) 17 gm PO DAILY [facility] Last Admin: 02/13/18 08:20 Dose: 17 gm Pregabalin (Lyrica) 100 mg PO TID [facility] Last Admin: 02/13/18 14:01 Dose: 100 mg Prochlorperazine Edisylate (Compazine Inj) 10 mg IVP Q6HR PRN PRN Reason: Nausea / Vomiting Promethazine HCl (Phenergan Inj) 25 mg IM Q6HR PRN PRN Reason: Nausea / Vomiting Quetiapine Fumarate (Seroquel) 400 mg PO QPM [facility] Saccharomyces Boulardii (Florastor) 250 mg PO BIDWM [facility] Last Admin: 02/13/18 08:20 Dose: 250 mg Sodium Chloride (Normal Saline Flush 0.9%) 10 ml IVP PRN PRN PRN Reason: NEEDED PER PROVIDER ORDERS Sodium Chloride (Normal Saline Flush 0.9%) 10 ml IVP 0100,0900,1700 [facility] Last Admin: 02/13/18 08:21 Dose: Not Given Tizanidine HCl (Zanaflex) 4 mg PO TID [facility] Last Admin: 02/13/18 14:01 Dose: 4 mg Aspirin Chewable [St Flavio Aspirin] 81 mg PO DAILY 09/29/13 diltiaZEM CD [Cardizem Cd] 240 mg PO BID 09/29/13 Multivitamin [Multivitamins] 1 each PO DAILY 06/06/14 Potassium Chloride 30 meq PO DAILY 06/06/14 Losartan [Cozaar] 100 mg PO DAILY 02/14/17 QUEtiapine [SEROquel] 400 mg PO QPM 02/14/17 Senna [Senokot] 17.2 mg PO BID 02/14/17 diphenhydrAMINE [Benadryl] 25 mg PO Q6H PRN 02/14/17 tiZANidine [Zanaflex] 4 mg PO TID 02/14/17 DULoxetine [Cymbalta] 120 mg PO DAILY 02/19/17 Furosemide [Lasix] 40 mg PO BID 04/25/17 Acetaminophen 500 mg PO Q6HR PRN 10/06/17 Meclizine HCl [Motion Sickness Relief] 25 mg PO BID PRN 10/06/17 Melatonin 3 mg PO QPM 10/06/17 Polyethylene Glycol 3350 [Miralax] 17 gm PO BID 10/06/17 Pregabalin [Lyrica] 100 mg PO TID 10/06/17 Albuterol Sulfate [Proair Hfa Inhaler] 2 puffs INH QID PRN MDD four times 11/19/17 Biofreeze 1 applic TOP TID 12/25/17 Bisacodyl [Dulcolax] 5 mg PO DAILY 12/25/17 Hydrocodone/Acetaminophen [Hydrocodone-Acetamin 10-325 mg] 1.5 tab PO TID PRN 12/25/17 Sucralfate [Carafate] 1 gm PO QID PRN 12/25/17 Nystatin [Nystop] 1 applic TOP BID PRN 01/07/18 oxyCODONE [Roxicodone] 5 mg PO TID PRN 02/13/18 Objective - Vital Signs/Intake & Output Reviewed Vital Signs: Yes Vital Signs: Vital Signs x48h Temp Pulse Resp BP BP Pulse Ox 02/13/18 11:57 37.0 C 72 18 137/71 H 96 02/13/18 09:00 36.7 C 60 17 96/70 99 02/13/18 08:02 101/54 L 02/13/18 07:45 56 L 88/51 L 02/13/18 07:40 36.3 C L 58 L 14 91/51 L 93 Intake & Output: Intake & Output 02/10/18 02/11/18 02/12/18 02/13/18 23:59 23:59 23:59 23:59 Intake Total 2390 Output Total 3200 Balance -810 - Objective General Appearance: positive: No acute distress, Alert. negative: Lethargic Eyes Bilateral: positive: Normal inspection, PERRL, No lid inflammation, Conjunctivae nml ENT: positive: ENT inspection nml, Pharynx nml, No signs of dehydration. negative: Purulent nasal drainage, Pharyngeal erythema, Oral lesions Neck: positive: Nml inspection, Thyroid nml, No JVD, Trachea midline. negative: Thyromegaly, Lymphadenopathy (R), Lymphadenopathy (L), Stiff neck, Swelling/bruising, Tracheal deviation Respiratory: positive: Chest non-tender, No respiratory distress, Breath sounds nml. negative: Wheezes, Rales, Rhonchi Cardiovascular: positive: Regular rate & rhythm, No murmur, No gallop. negative: Irregularly irregular, Extrasystoles, Tachycardia, Bradycardia, JVD present, Systolic murmur, Diastolic murmur Peripheral Pulses: 2+ Radial (R), 2+ Radial (L), 2+ Dorsalis pedis (R) Abdomen: positive: Non-tender, No organomegaly, Nml bowel sounds, No distention. negative: Tenderness, Guarding, Rebound Back: positive: Nml inspection. negative: CVA tenderness (R), CVA tenderness (L) Skin: positive: Color nml, No rash, Warm, Dry. negative: Cyanosis, Diaphoresis, Pallor Extremities: positive: Non-tender, Full ROM. negative: Calf tenderness, Joint swelling, Zia's sign/cords Neurologic/Psychiatric: positive: Sensation nml, Mood/affect nml. negative: Weakness, Sensory loss, Facial droop, Slurred/abnml speech, Depressed mood/affect - Lab Results Fish Bones: 02/13/18 09:25 02/13/18 09:25 Other Labs: Lab Results x24hrs 02/13/18 02/13/18 02/13/18 Range/Units 09:25 09:25 09:25 WBC (4.8-10.8) x10^3/uL RBC (4.20-5.40) 10^6/uL Hgb (12.0-16.0) g/dL Hct (37.0-47.0) % MCV (81.0-99.0) fL MCH (27.0-31.0) pg MCHC (32.0-36.0) g/dL RDW (12.0-15.0) % Plt Count (130-450) 10^3/uL MPV (7.9-10.8) fL Neut # (Auto) (1.5-6.6) 10^3/uL Lymph # (Auto) (1.5-3.5) 10^3/uL [place] # (Auto) (0.0-1.0) 10^3/uL Eos # (Auto) (0.0-0.7) 10^3/uL Baso # (Auto) (0.0-0.1) 10^3/uL Absolute Nucleated RBC x10^3/uL Nucleated RBC % /100WBC Sodium 140 (135-145) mmol/L Potassium 3.8 (3.5-5.0) mmol/L Chloride 104 (101-111) mmol/L Carbon Dioxide 29 (21-32) mmol/L Anion Gap 7.0 (6-13) BUN 38 H (6-20) mg/dL Creatinine 1.8 H (0.4-1.0) mg/dL Estimated GFR (MDRD) 28 L (>89) Glucose 106 H (70-100) mg/dL Glycated Hemoglobin 5.5 (4.6-6.2) % Estim Average Glucose 111 H (70-100) Lactic Acid 0.9 (0.5-2.2) mmol/L Calcium 8.1 L (8.5-10.3) mg/dL Phosphorus 3.8 (2.5-4.6) mg/dL Magnesium 2.1 (1.7-2.8) mg/dL Total Bilirubin 0.7 (0.2-1.0) mg/dL AST 35 (10-42) IU/L ALT 25 (10-60) IU/L Alkaline Phosphatase 65 (42-121) IU/L Troponin I (<0.49) ng/mL B-Natriuretic Peptide (5-100) pg/mL Total Protein 6.2 L (6.7-8.2) g/dL Albumin 2.9 L (3.2-5.5) g/dL Globulin 3.3 (2.1-4.2) g/dL Albumin/Globulin Ratio 0.9 L (1.0-2.2) Lipase (22-51) U/L Urine Color Urine Clarity (CLEAR) Urine pH (5.0-7.5) PH Ur Specific [place] (1.002-1.030) Urine Protein (NEGATIVE) mg/dL Urine Glucose (UA) (NEGATIVE) mg/dL Urine Ketones (NEGATIVE) mg/dL Urine Occult Blood (NEGATIVE) Urine Nitrite (NEGATIVE) Urine Bilirubin (NEGATIVE) Urine Urobilinogen (NORMAL) E.U./dL Ur Leukocyte Esterase (NEGATIVE) Urine RBC (0-5) /HPF Urine WBC (0-5) /HPF Ur Squamous Epith Cells (<= Few) Amorphous Sediment /LPF Urine Bacteria (None Seen) /HPF Ur Microscopic Review Urine Culture Comments 02/13/18 02/12/18 02/12/18 Range/Units 09:25 23:40 23:40 WBC 5.1 (4.8-10.8) x10^3/uL RBC 3.83 L (4.20-5.40) 10^6/uL Hgb 10.5 L (12.0-16.0) g/dL Hct 31.1 L (37.0-47.0) % MCV 81.2 (81.0-99.0) fL MCH 27.4 (27.0-31.0) pg MCHC 33.7 (32.0-36.0) g/dL RDW 15.4 H (12.0-15.0) % Plt Count 198 (130-450) 10^3/uL MPV 8.1 (7.9-10.8) fL Neut # (Auto) 3.7 (1.5-6.6) 10^3/uL Lymph # (Auto) 0.7 L (1.5-3.5) 10^3/uL [place] # (Auto) 0.4 (0.0-1.0) 10^3/uL Eos # (Auto) 0.3 (0.0-0.7) 10^3/uL Baso # (Auto) 0.0 (0.0-0.1) 10^3/uL Absolute Nucleated RBC 0.00 x10^3/uL Nucleated RBC % 0.0 /100WBC Sodium (135-145) mmol/L Potassium (3.5-5.0) mmol/L Chloride (101-111) mmol/L Carbon Dioxide (21-32) mmol/L Anion Gap (6-13) BUN (6-20) mg/dL Creatinine (0.4-1.0) mg/dL Estimated GFR (MDRD) (>89) Glucose (70-100) mg/dL Glycated Hemoglobin (4.6-6.2) % Estim Average Glucose (70-100) Lactic Acid 0.9 (0.5-2.2) mmol/L Calcium (8.5-10.3) mg/dL Phosphorus (2.5-4.6) mg/dL Magnesium (1.7-2.8) mg/dL Total Bilirubin (0.2-1.0) mg/dL AST (10-42) IU/L ALT (10-60) IU/L Alkaline Phosphatase (42-121) IU/L Troponin I (<0.49) ng/mL B-Natriuretic Peptide 17 (5-100) pg/mL Total Protein (6.7-8.2) g/dL Albumin (3.2-5.5) g/dL Globulin (2.1-4.2) g/dL Albumin/Globulin Ratio (1.0-2.2) Lipase (22-51) U/L Urine Color Urine Clarity (CLEAR) Urine pH (5.0-7.5) PH Ur Specific [place] (1.002-1.030) Urine Protein (NEGATIVE) mg/dL Urine Glucose (UA) (NEGATIVE) mg/dL Urine Ketones (NEGATIVE) mg/dL Urine Occult Blood (NEGATIVE) Urine Nitrite (NEGATIVE) Urine Bilirubin (NEGATIVE) Urine Urobilinogen (NORMAL) E.U./dL Ur Leukocyte Esterase (NEGATIVE) Urine RBC (0-5) /HPF Urine WBC (0-5) /HPF Ur Squamous Epith Cells (<= Few) Amorphous Sediment /LPF Urine Bacteria (None Seen) /HPF Ur Microscopic Review Urine Culture Comments 02/12/18 02/12/18 02/12/18 Range/Units 23:40 23:40 23:40 WBC 6.2 (4.8-10.8) x10^3/uL RBC 3.69 L (4.20-5.40) 10^6/uL Hgb 10.2 L (12.0-16.0) g/dL Hct 30.1 L (37.0-47.0) % MCV 81.4 (81.0-99.0) fL MCH 27.7 (27.0-31.0) pg MCHC 34.0 (32.0-36.0) g/dL RDW 15.2 H (12.0-15.0) % Plt Count 203 (130-450) 10^3/uL MPV 8.2 (7.9-10.8) fL Neut # (Auto) 3.1 (1.5-6.6) 10^3/uL Lymph # (Auto) 2.0 (1.5-3.5) 10^3/uL [place] # (Auto) 0.6 (0.0-1.0) 10^3/uL Eos # (Auto) 0.4 (0.0-0.7) 10^3/uL Baso # (Auto) 0.0 (0.0-0.1) 10^3/uL Absolute Nucleated RBC 0.00 x10^3/uL Nucleated RBC % 0.0 /100WBC Sodium 135 (135-145) mmol/L Potassium 4.1 (3.5-5.0) mmol/L Chloride 98 L (101-111) mmol/L Carbon Dioxide 30 (21-32) mmol/L Anion Gap 7.0 (6-13) BUN 45 H (6-20) mg/dL Creatinine 2.4 H (0.4-1.0) mg/dL Estimated GFR (MDRD) 20 L (>89) Glucose 111 H (70-100) mg/dL Glycated Hemoglobin (4.6-6.2) % Estim Average Glucose (70-100) Lactic Acid (0.5-2.2) mmol/L Calcium 8.2 L (8.5-10.3) mg/dL Phosphorus 5.3 H (2.5-4.6) mg/dL Magnesium 2.2 (1.7-2.8) mg/dL Total Bilirubin 0.5 (0.2-1.0) mg/dL AST 37 (10-42) IU/L ALT 26 (10-60) IU/L Alkaline Phosphatase 68 (42-121) IU/L Troponin I < 0.04 (<0.49) ng/mL B-Natriuretic Peptide (5-100) pg/mL Total Protein 6.4 L (6.7-8.2) g/dL Albumin 3.0 L (3.2-5.5) g/dL Globulin 3.4 (2.1-4.2) g/dL Albumin/Globulin Ratio 0.9 L (1.0-2.2) Lipase 55 H (22-51) U/L Urine Color Urine Clarity (CLEAR) Urine pH (5.0-7.5) PH Ur Specific [place] (1.002-1.030) Urine Protein (NEGATIVE) mg/dL Urine Glucose (UA) (NEGATIVE) mg/dL Urine Ketones (NEGATIVE) mg/dL Urine Occult Blood (NEGATIVE) Urine Nitrite (NEGATIVE) Urine Bilirubin (NEGATIVE) Urine Urobilinogen (NORMAL) E.U./dL Ur Leukocyte Esterase (NEGATIVE) Urine RBC (0-5) /HPF Urine WBC (0-5) /HPF Ur Squamous Epith Cells (<= Few) Amorphous Sediment /LPF Urine Bacteria (None Seen) /HPF Ur Microscopic Review Urine Culture Comments 02/12/18 Range/Units 23:20 WBC (4.8-10.8) x10^3/uL RBC (4.20-5.40) 10^6/uL Hgb (12.0-16.0) g/dL Hct (37.0-47.0) % MCV (81.0-99.0) fL MCH (27.0-31.0) pg MCHC (32.0-36.0) g/dL RDW (12.0-15.0) % Plt Count (130-450) 10^3/uL MPV (7.9-10.8) fL Neut # (Auto) (1.5-6.6) 10^3/uL Lymph # (Auto) (1.5-3.5) 10^3/uL [place] # (Auto) (0.0-1.0) 10^3/uL Eos # (Auto) (0.0-0.7) 10^3/uL Baso # (Auto) (0.0-0.1) 10^3/uL Absolute Nucleated RBC x10^3/uL Nucleated RBC % /100WBC Sodium (135-145) mmol/L Potassium (3.5-5.0) mmol/L Chloride (101-111) mmol/L Carbon Dioxide (21-32) mmol/L Anion Gap (6-13) BUN (6-20) mg/dL Creatinine (0.4-1.0) mg/dL Estimated GFR (MDRD) (>89) Glucose (70-100) mg/dL Glycated Hemoglobin (4.6-6.2) % Estim Average Glucose (70-100) Lactic Acid (0.5-2.2) mmol/L Calcium (8.5-10.3) mg/dL Phosphorus (2.5-4.6) mg/dL Magnesium (1.7-2.8) mg/dL Total Bilirubin (0.2-1.0) mg/dL AST (10-42) IU/L ALT (10-60) IU/L Alkaline Phosphatase (42-121) IU/L Troponin I (<0.49) ng/mL B-Natriuretic Peptide (5-100) pg/mL Total Protein (6.7-8.2) g/dL Albumin (3.2-5.5) g/dL Globulin (2.1-4.2) g/dL Albumin/Globulin Ratio (1.0-2.2) Lipase (22-51) U/L Urine Color YELLOW Urine Clarity SL. CLOUDY (CLEAR) Urine pH 5.5 (5.0-7.5) PH Ur Specific [place] 1.015 (1.002-1.030) Urine Protein 30 H (NEGATIVE) mg/dL Urine Glucose (UA) NEGATIVE (NEGATIVE) mg/dL Urine Ketones NEGATIVE (NEGATIVE) mg/dL Urine Occult Blood SMALL H (NEGATIVE) Urine Nitrite POSITIVE H (NEGATIVE) Urine Bilirubin NEGATIVE (NEGATIVE) Urine Urobilinogen 0.2 (NORMAL) (NORMAL) E.U./dL Ur Leukocyte Esterase LARGE H (NEGATIVE) Urine RBC 6-10 H (0-5) /HPF Urine WBC >25 H (0-5) /HPF Ur Squamous Epith Cells RARE Squamous (<= Few) Amorphous Sediment Few /LPF Urine Bacteria Few (None Seen) /HPF Ur Microscopic Review INDICATED Urine Culture Comments INDICATED ABX Reporting Has patient been on IV antibiotics over the past 48 hours?: Yes Assessment/Plan - Problem List (1) Dehydration Impression: 02/13 after hydration, pt's renal function is improved, Creatinine from 2.4 to 1.8 now, and pt is more oriented. continue hydration continue lab monitor Patient was brought to the emergency department after a fall. On presentation the patient was lethargic and has history of dementia and was unable to provide any history. The patient does have a chronic indwelling suprapubic catheter with recurrent urinary tract infections. The patient was found to have acute kidney injury and was hypotensive on presentation. Patient did not have a fever or elevated white blood cell count but appeared to have endorgan damage with lethargy and acute kidney injury as well as with hypotension. The patient was found to have a positive urine analysis concerning for ongoing infection. Given the patient's endorgan damage this was considered sepsis. She was given IV fluids and antibiotics in the emergency department and admitted to the medical [facility]. Plan: IV fluids IV vancomycin and cefepime given the patient's previous cultures of the urine Blood cultures Urine culture Monitor lactic acid Qualifiers: Sepsis type: Pseudomonas Qualified Code(s): A41.52 - Sepsis due to Pseudomonas (2) Urinary tract infection Conclusion/Plan: 02/13 UA is positive for UTI, UA culture and sensitivity study are pending continue antibiotics continue blood and UA culture and sensitivity study, follow up Patient presented with sepsis which appears to be secondary to urinary tract infection. Patient has a history of an indwelling suprapubic catheter and has history of recurrent urinary tract infections. The patient has grown multiple different organisms on urine cultures in the past. These include MRSA and Pseudomonas. The patient did have a recent urine culture from 02/01/2018 which grew enterococcus faecalis which was only susceptible to penicillins, vancomycin, tigecycline and and nitrofurantoin. It appears the patient was on nitrofurantoin at [facility] but has developed sepsis despite this. Plan: IV vancomycin and cefepime IV fluids Blood culture Urine culture Qualifiers: Urinary tract infection type: catheter-associated UTI Indwelling urinary catheter type: cystostomy catheter Encounter type: subsequent encounter Qualified Code(s): T83.510D - Infection and inflammatory reaction due to cystostomy catheter, subsequent encounter; N39.0 - Urinary tract infection, site not specified; N39.0 - Urinary tract infection, site not specified (3) Metabolic encephalopathy Conclusion/Plan: pt is more oriented, close to her baseline continue neuro check, continue orient pt continue lab monitor The patient appears to have metabolic encephalopathy which appears to be secondary to ongoing sepsis and urinary tract infection. The patient does have dementia at baseline but is extremely lethargic and unable to provide any history on presentation. This does not appear to be her baseline. She will be treated for her infection and given fluids in hopes that she does improve her mentation. (4) Acute kidney injury Conclusion/Plan: 02/13 improved, now creatinine is 1.8 from admission 2.4 continue IVF continue lab monitor On presentation to the emergency department the patient has acute kidney injury with a creatinine of 2.4 which is elevated from a baseline of 1.0 just a month earlier. The patient appears to have prerenal azotemia as she does have a elevated BUN of 45 and also appears very dry on examination. The patient likely has developed this acute kidney injury secondary to ongoing sepsis. Plan: IV fluids Hold diuretics Monitor creatinine Avoid nephrotoxic agents (5) Diabetes Conclusion/Plan: A1C is 5.5, no DM Patient has a history of diabetes which appears to be diet controlled at this time. The patient does not appear to be on any insulin or oral diabetic agents. The patient's blood glucose on presentation is 111. At this point we will not start the patient on any insulin. We will get an A1c if that is elevated we will consider placing her on sliding scale insulin. At this time we will just check blood glucose daily and place her on a diabetic diet. (6) HTN (hypertension) Conclusion/Plan: The patient has a history of hypertension but on presentation she is hypotensive secondary to ongoing sepsis. For now we will hold all of the patient's antihypertensive medications. Patient will be given IV fluids and we will continue to monitor the blood pressure once a blood pressure does become elevated we will consider restarting her antihypertensives. Qualifiers: Hypertension type: essential hypertension Qualified Code(s): I10 - Essential (primary) hypertension (7) Depression Conclusion/Plan: The patient has a history of depression and is on Cymbalta and Seroquel. We will continue these medications while she is hospitalized.
[2018-02-13] MEDS ORDERED: ALBUTEROL NEB 2.5 MG/3 ML INH PRN (15:46)
[2018-02-13] MEDS: GABAPENTIN 100 MG CAPSULE PO SCH ×2 (16:32→21:09)
[2018-02-13] MEDS: QUEtiapine 100 MG TABLET PO SCH (21:08)
[2018-02-14] MEDS: SODIUM CHLORIDE FLUSH 0.9% 10 ML SYRINGE IVP SCH ×3 (00:28→15:56)
[2018-02-14] MEDS ORDERED: CEFEPIME 1 GM in SODIUM CHLORIDE 0.9% MINIBAG 100 ML IV SCH (01:00)
[2018-02-14] MEDS: CEFEPIME 1 GM in SODIUM CHLORIDE 0.9% MINIBAG 100 ML IV SCH ×2 (02:32→13:37)
[2018-02-14 04:34] LABS: BASOPHILS % (AUTO) 0.5 %; EOSINOPHILS # (AUTO) 0.5 10^3/uL (0.0-0.7); EOSINOPHILS % (AUTO) 10.9 %; HGB - HEMOGLOBIN 10.2 g/dL (12.0-16.0); LYMPHOCYTES # (AUTO) 1.4 10^3/uL (1.5-3.5); LYMPHOCYTES % (AUTO) 32.4 %; MEAN CORPUSCULAR HGB CONC 32.6 g/dL (32.0-36.0); MEAN CORPUSCULAR VOLUME 82.8 fL (81.0-99.0); MEAN PLATELET VOLUME 8.5 fL (7.9-10.8); MONOCYTES # (AUTO) 0.5 10^3/uL (0.0-1.0); MONOCYTES % (AUTO) 11.7 %; NEUTROPHILS # (AUTO) 1.9 10^3/uL (1.5-6.6); NEUTROPHILS % (AUTO) 44.5 %; PLT - PLATELET COUNT 184 10^3/uL (130-450); RED BLOOD COUNT 3.79 10^6/uL (4.20-5.40); RED CELL DISTRIBUTION WIDTH 15.4 % (12.0-15.0); WHITE BLOOD COUNT 4.3 x10^3/uL (4.8-10.8)
[2018-02-14 04:46] LABS: ALBUMIN 2.6 g/dL (3.2-5.5); ALBUMIN/GLOBULIN RATIO 0.8 (1.0-2.2); BILIRUBIN,TOTAL 0.4 mg/dL (0.2-1.0); CALCIUM 8.2 mg/dL (8.5-10.3); CREATININE 1.3 mg/dL (0.4-1.0); MAGNESIUM 1.9 mg/dL (1.7-2.8); PHOSPHORUS 3.2 mg/dL (2.5-4.6)
[2018-02-14] MEDS: SODIUM CHLORIDE 0.9% 1,000 ML IV SCH ×2 (05:07→15:06)
[2018-02-14] MEDS ORDERED: VANCOMYCIN INJ 1 GM in SODIUM CHLORIDE 0.9% 250 ML IV SCH (08:00)
[2018-02-14] MEDS: SACCHAROMYCES BOULARDII 250 MG CAPSULE PO SCH ×2 (09:06→16:02)
[2018-02-14] MEDS: tiZANidine 4 MG TABLET PO SCH ×3 (09:07→21:19)
[2018-02-14] MEDS: DULoxetine 30 MG CAPSULE PO SCH (09:07)
[2018-02-14] MEDS: ASPIRIN CHEW 81 MG TABLET PO SCH (09:07)
[2018-02-14] MEDS: GABAPENTIN 100 MG CAPSULE PO SCH ×2 (09:07→13:38)
[2018-02-14] MEDS: PREGABALIN 100 MG CAPSULE PO SCH ×3 (09:07→21:19)
[2018-02-14] MEDS: diltiaZEM CD 240 MG CAPSULE PO SCH ×2 (09:07→21:19)
[2018-02-14] MEDS: PANTOPRAZOLE 40 MG TABLET PO SCH (09:07)
[2018-02-14] MEDS: MULTIVITAMIN TABLET PO SCH (09:08)
[2018-02-14] MEDS: POLYETHYLENE GLYCOL 3350 17 GM PACKET PO SCH (09:08)
[2018-02-14] MEDS: VANCOMYCIN INJ 1.75 GM in SODIUM CHLORIDE 0.9% 500 ML IV SCH (09:10)
[2018-02-14] MEDS: NYSTATIN POWDER 15 GM TOP SCH ×2 (09:13→21:19)
[2018-02-14] MEDS: HEPARIN 5,000 UNIT/ML VIAL SUBQ SCH ×2 (09:20→21:19)
--- NOTE | 2018-02-14 15:03 | PROVIDER PROGRESS NOTE ---
Subjective - Prog Note Date Prog Note Date: 02/14/18 - Subjective Pt reports feeling: Improved Subjective: pt state she feel better, no pain is reported. no other complaints. pt has long hx of UTI. Preliminary UA reveals positive for two bacterial , gram negative, enterococcus species. The sensitivity study is pending Current Medications - Current Medications Current Medications: Active Medications Acetaminophen (Tylenol) 650 mg PO Q4HR PRN PRN Reason: Pain 1 to 4 Albuterol () 2.5 mg INH RTQ4H PRN PRN Reason: Wheezing Aspirin ([place] Flavio Aspirin) 81 mg PO DAILY [facility] Last Admin: 02/14/18 09:07 Dose: 81 mg Diltiazem HCl (Cardizem Cd) 240 mg PO BID [facility] Last Admin: 02/14/18 09:07 Dose: 240 mg Diphenhydramine HCl (Benadryl) 25 mg PO DAILY PRN PRN Reason: ITCHING Duloxetine HCl (Cymbalta) 120 mg PO DAILY [facility] Last Admin: 02/14/18 09:07 Dose: 120 mg Gabapentin (Neurontin) 100 mg PO TID [facility] Last Admin: 02/14/18 13:38 Dose: 100 mg Heparin Sodium (Porcine) () 5,000 unit SUBQ BID [facility] Last Admin: 02/14/18 09:20 Dose: 5,000 unit Sodium Chloride (Normal Saline 0.9%) 1,000 mls @ 100 mls/hr IV .Q10H [facility] Last Admin: 02/14/18 05:07 Dose: 100 mls/hr Cefepime HCl 1 gm/ Sodium (Chloride) 100 mls @ 200 mls/hr IV Q12H [facility] Last Infusion: 02/14/18 14:08 Dose: Infused Vancomycin HCl 1.75 gm/ Sodium (Chloride) 500 mls @ 250 mls/hr IV Q24H [facility] Last Infusion: 02/14/18 11:11 Dose: Infused Mineral Oil (Cavilon) 1 applic TOP PRN PRN PRN Reason: Skin Care Multivitamins (Theragran) 1 tab PO DAILY [facility] Last Admin: 02/14/18 09:08 Dose: 1 tab Nystatin (Nystop) 1 applic TOP BID [facility] Last Admin: 02/14/18 09:13 Dose: 1 applic Ondansetron HCl (Zofran Inj) 4 mg IVP Q6HR PRN PRN Reason: Nausea / Vomiting Oxycodone HCl (Roxicodone) 5 mg PO Q4HR PRN PRN Reason: Pain 5 to 7 Last Admin: 02/13/18 12:42 Dose: 5 mg Oxycodone HCl (Roxicodone) 10 mg PO Q4HR PRN PRN Reason: Pain 8 to 10 Last Admin: 02/13/18 21:08 Dose: 10 mg Pantoprazole Sodium (Protonix) 40 mg PO QDAC [facility] Last Admin: 02/14/18 09:07 Dose: 40 mg Melatonin 3 Mg 3 each PO QPM [facility] Last Admin: 02/13/18 21:11 Dose: Not Given Polyethylene Glycol (Miralax) 17 gm PO DAILY [facility] Last Admin: 02/14/18 09:08 Dose: 17 gm Pregabalin (Lyrica) 100 mg PO TID [facility] Last Admin: 02/14/18 13:38 Dose: 100 mg Prochlorperazine Edisylate (Compazine Inj) 10 mg IVP Q6HR PRN PRN Reason: Nausea / Vomiting Promethazine HCl (Phenergan Inj) 25 mg IM Q6HR PRN PRN Reason: Nausea / Vomiting Quetiapine Fumarate (Seroquel) 400 mg PO QPM [facility] Last Admin: 02/13/18 21:08 Dose: 400 mg Saccharomyces Boulardii (Florastor) 250 mg PO BIDWM [facility] Last Admin: 02/14/18 09:06 Dose: 250 mg Sodium Chloride (Normal Saline Flush 0.9%) 10 ml IVP PRN PRN PRN Reason: NEEDED PER PROVIDER ORDERS Sodium Chloride (Normal Saline Flush 0.9%) 10 ml IVP 0100,0900,1700 [facility] Last Admin: 02/14/18 09:18 Dose: Not Given Tizanidine HCl (Zanaflex) 4 mg PO TID [facility] Last Admin: 02/14/18 13:38 Dose: 4 mg Aspirin Chewable [St Flavio Aspirin] 81 mg PO DAILY 09/29/13 diltiaZEM CD [Cardizem Cd] 240 mg PO BID 09/29/13 Multivitamin [Multivitamins] 1 each PO DAILY 06/06/14 Potassium Chloride 30 meq PO DAILY 06/06/14 Losartan [Cozaar] 100 mg PO DAILY 02/14/17 QUEtiapine [SEROquel] 400 mg PO QPM 02/14/17 Senna [Senokot] 17.2 mg PO BID 02/14/17 diphenhydrAMINE [Benadryl] 25 mg PO Q6H PRN 02/14/17 tiZANidine [Zanaflex] 4 mg PO TID 02/14/17 DULoxetine [Cymbalta] 120 mg PO DAILY 02/19/17 Furosemide [Lasix] 40 mg PO BID 04/25/17 Acetaminophen 500 mg PO Q6HR PRN 10/06/17 Meclizine HCl [Motion Sickness Relief] 25 mg PO BID PRN 10/06/17 Melatonin 3 mg PO QPM 10/06/17 Polyethylene Glycol 3350 [Miralax] 17 gm PO BID 10/06/17 Pregabalin [Lyrica] 100 mg PO TID 10/06/17 Albuterol Sulfate [Proair Hfa Inhaler] 2 puffs INH QID PRN MDD four times 11/19/17 Biofreeze 1 applic TOP TID 12/25/17 Bisacodyl [Dulcolax] 5 mg PO DAILY 12/25/17 Hydrocodone/Acetaminophen [Hydrocodone-Acetamin 10-325 mg] 1.5 tab PO TID PRN 12/25/17 Sucralfate [Carafate] 1 gm PO QID PRN 12/25/17 Nystatin [Nystop] 1 applic TOP BID PRN 01/07/18 oxyCODONE [Roxicodone] 5 mg PO TID PRN 02/13/18 Objective - Vital Signs/Intake & Output Reviewed Vital Signs: Yes Vital Signs: Vital Signs x48h Temp Pulse Resp BP Pulse Ox 02/14/18 13:48 37.1 C 66 19 137/64 H 96 02/14/18 07:58 36.6 C 69 18 142/48 H 97 Intake & Output: Intake & Output 02/11/18 02/12/18 02/13/18 02/14/18 23:59 23:59 23:59 23:59 Intake Total 3990 2256.667 Output Total 3950 3450 Balance 40 -1193.333 - Objective General Appearance: positive: No acute distress, Alert. negative: Lethargic Eyes Bilateral: positive: Normal inspection, PERRL, No lid inflammation, Conjunctivae nml ENT: positive: ENT inspection nml, Pharynx nml, No signs of dehydration. negative: Purulent nasal drainage, Pharyngeal erythema, Oral lesions Neck: positive: Nml inspection, Thyroid nml, No JVD, Trachea midline. negative: Thyromegaly, Lymphadenopathy (R), Lymphadenopathy (L), Stiff neck, Swelling/bruising, Tracheal deviation Respiratory: positive: Chest non-tender, No respiratory distress, Breath sounds nml. negative: Wheezes, Rales, Rhonchi Cardiovascular: positive: Regular rate & rhythm, No murmur, No gallop. negative: Irregularly irregular, Extrasystoles, Tachycardia, Bradycardia, JVD present, Systolic murmur, Diastolic murmur Peripheral Pulses: 2+ Radial (R), 2+ Radial (L), 2+ Dorsalis pedis (R) Abdomen: positive: Non-tender, No organomegaly, Nml bowel sounds, No distention. negative: Tenderness, Guarding, Rebound Back: positive: Nml inspection. negative: CVA tenderness (R), CVA tenderness (L) Skin: positive: Color nml, No rash, Warm, Dry. negative: Cyanosis, Diaphoresis, Pallor Extremities: positive: Non-tender. negative: Calf tenderness, Joint swelling, Zia's sign/cords Neurologic/Psychiatric: positive: Sensation nml, Mood/affect nml, Disoriented to time. negative: Weakness, Sensory loss, Facial droop, Slurred/abnml speech, Depressed mood/affect - Lab Results Fish Bones: 02/14/18 04:15 02/14/18 04:15 Other Labs: Lab Results x24hrs 02/14/18 02/14/18 Range/Units 04:15 04:15 WBC 4.3 L (4.8-10.8) x10^3/uL RBC 3.79 L (4.20-5.40) 10^6/uL Hgb 10.2 L (12.0-16.0) g/dL Hct 31.4 L (37.0-47.0) % MCV 82.8 (81.0-99.0) fL MCH 27.0 (27.0-31.0) pg MCHC 32.6 (32.0-36.0) g/dL RDW 15.4 H (12.0-15.0) % Plt Count 184 (130-450) 10^3/uL MPV 8.5 (7.9-10.8) fL Neut # (Auto) 1.9 (1.5-6.6) 10^3/uL Lymph # (Auto) 1.4 L (1.5-3.5) 10^3/uL [place] # (Auto) 0.5 (0.0-1.0) 10^3/uL Eos # (Auto) 0.5 (0.0-0.7) 10^3/uL Baso # (Auto) 0.0 (0.0-0.1) 10^3/uL Absolute Nucleated RBC 0.00 x10^3/uL Nucleated RBC % 0.1 /100WBC Sodium 138 (135-145) mmol/L Potassium 4.0 (3.5-5.0) mmol/L Chloride 106 (101-111) mmol/L Carbon Dioxide 26 (21-32) mmol/L Anion Gap 6.0 (6-13) BUN 29 H (6-20) mg/dL Creatinine 1.3 H (0.4-1.0) mg/dL Estimated GFR (MDRD) 40 L (>89) Glucose 91 (70-100) mg/dL Calcium 8.2 L (8.5-10.3) mg/dL Phosphorus 3.2 (2.5-4.6) mg/dL Magnesium 1.9 (1.7-2.8) mg/dL Total Bilirubin 0.4 (0.2-1.0) mg/dL AST 28 (10-42) IU/L ALT 23 (10-60) IU/L Alkaline Phosphatase 62 (42-121) IU/L Total Protein 6.0 L (6.7-8.2) g/dL Albumin 2.6 L (3.2-5.5) g/dL Globulin 3.4 (2.1-4.2) g/dL Albumin/Globulin Ratio 0.8 L (1.0-2.2) ABX Reporting Has patient been on IV antibiotics over the past 48 hours?: Yes Assessment/Plan - Problem List (1) Dehydration Impression: Impression: 02/14 Improved. creatinine is 1.3 today, it is close to pt's base line continue IVF of NS, lab monitor, vital monitor 02/13 after hydration, pt's renal function is improved, Creatinine from 2.4 to 1.8 now, and pt is more oriented. continue hydration continue lab monitor Patient was brought to the emergency department after a fall. On presentation the patient was lethargic and has history of dementia and was unable to provide any history. The patient does have a chronic indwelling suprapubic catheter with recurrent urinary tract infections. The patient was found to have acute kidney injury and was hypotensive on presentation. Patient did not have a fever or elevated white blood cell count but appeared to have endorgan damage with lethargy and acute kidney injury as well as with hypotension. The patient was found to have a positive urine analysis concerning for ongoing infection. Given the patient's endorgan damage this was considered sepsis. She was given IV fluids and antibiotics in the emergency department and admitted to the medical [facility]. Plan: IV fluids IV vancomycin and cefepime given the patient's previous cultures of the urine Blood cultures Urine culture Monitor lactic acid (2) Urinary tract infection Conclusion/Plan: 02/14 continue cefepime, UA positive for two kind of bacteria, pt has long hx of UTI. it is important to choose correct antibiotics after sensitivity study. 02/13 UA is positive for UTI, UA culture and sensitivity study are pending continue antibiotics continue blood and UA culture and sensitivity study, follow up Patient presented with sepsis which appears to be secondary to urinary tract infection. Patient has a history of an indwelling suprapubic catheter and has history of recurrent urinary tract infections. The patient has grown multiple different organisms on urine cultures in the past. These include MRSA and Pseudomonas. The patient did have a recent urine culture from 02/01/2018 which grew enterococcus faecalis which was only susceptible to penicillins, vancomycin, tigecycline and and nitrofurantoin. It appears the patient was on nitrofurantoin at [facility] but has developed sepsis despite this. Plan: IV vancomycin and cefepime IV fluids Blood culture Urine culture (3) Metabolic encephalopathy Conclusion/Plan: great improved, continue monitor pt pt is more oriented, close to her baseline continue neuro check, continue orient pt continue lab monitor The patient appears to have metabolic encephalopathy which appears to be secondary to ongoing sepsis and urinary tract infection. The patient does have dementia at baseline but is extremely lethargic and unable to provide any history on presentation. This does not appear to be her baseline. She will be treated for her infection and given fluids in hopes that she does improve her mentation. (4) Acute kidney injury Conclusion/Plan: 02/14 improved. creatinine is 1.3 continue IVF, lab monitor 02/13 improved, now creatinine is 1.8 from admission 2.4 continue IVF continue lab monitor On presentation to the emergency department the patient has acute kidney injury with a creatinine of 2.4 which is elevated from a baseline of 1.0 just a month earlier. The patient appears to have prerenal azotemia as she does have a e levated BUN of 45 and also appears very dry on examination. The patient likely has developed this acute kidney injury secondary to ongoing sepsis. Plan: IV fluids Hold diuretics Monitor creatinine Avoid nephrotoxic agents (5) Diabetes Conclusion/Plan: A1C is 5.5, no DM Patient has a history of diabetes which appears to be diet controlled at this time. The patient does not appear to be on any insulin or oral diabetic agents. The patient's blood glucose on presentation is 111. At this point we will not start the patient on any insulin. We will get an A1c if that is elevated we will consider placing her on sliding scale insulin. At this time we will just check blood glucose daily and place her on a diabetic diet. (6) HTN (hypertension) Conclusion/Plan: The patient has a history of hypertension but on presentation she is hypotensive secondary to ongoing sepsis. For now we will hold all of the patient's antihypertensive medications. Patient will be given IV fluids and we will continue to monitor the blood pressure once a blood pressure does become elevated we will consider restarting her antihypertensives. (7) Depression Conclusion/Plan: stable, The patient has a history of depression and is on Cymbalta and Seroquel. We will continue these medications while she is hospitalized.
[2018-02-14] MEDS: oxyCODONE 5 MG TABLET PO PRN ×2 (16:02→21:19)
[2018-02-14] MEDS: QUEtiapine 100 MG TABLET PO SCH (21:19)
[2018-02-15] MEDS: SODIUM CHLORIDE 0.9% 1,000 ML IV SCH ×3 (01:09→19:15)
[2018-02-15] MEDS: CEFEPIME 1 GM in SODIUM CHLORIDE 0.9% MINIBAG 100 ML IV SCH ×2 (01:14→14:32)
[2018-02-15] MEDS: SODIUM CHLORIDE FLUSH 0.9% 10 ML SYRINGE IVP SCH ×3 (01:15→19:16)
[2018-02-15] MEDS: oxyCODONE 5 MG TABLET PO PRN ×3 (05:05→20:36)
[2018-02-15] MEDS: PANTOPRAZOLE 40 MG TABLET PO SCH (06:08)
[2018-02-15] MEDS: tiZANidine 4 MG TABLET PO SCH ×3 (06:08→20:35)
[2018-02-15] MEDS: PREGABALIN 100 MG CAPSULE PO SCH ×3 (06:09→20:36)
[2018-02-15 07:43] LABS: BASOPHILS % (AUTO) 0.6 %; EOSINOPHILS # (AUTO) 0.5 10^3/uL (0.0-0.7); EOSINOPHILS % (AUTO) 9.9 %; HGB - HEMOGLOBIN 10.4 g/dL (12.0-16.0); LYMPHOCYTES # (AUTO) 1.4 10^3/uL (1.5-3.5); LYMPHOCYTES % (AUTO) 30.7 %; MEAN CORPUSCULAR HEMOGLOBIN 27.4 pg (27.0-31.0); MEAN CORPUSCULAR HGB CONC 33.6 g/dL (32.0-36.0); MEAN CORPUSCULAR VOLUME 81.3 fL (81.0-99.0); MEAN PLATELET VOLUME 8.6 fL (7.9-10.8); MONOCYTES # (AUTO) 0.5 10^3/uL (0.0-1.0); MONOCYTES % (AUTO) 10.7 %; NEUTROPHILS # (AUTO) 2.2 10^3/uL (1.5-6.6); NEUTROPHILS % (AUTO) 48.1 %; PLT - PLATELET COUNT 183 10^3/uL (130-450); RED CELL DISTRIBUTION WIDTH 14.9 % (12.0-15.0); WHITE BLOOD COUNT 4.6 x10^3/uL (4.8-10.8)
[2018-02-15 07:53] LABS: ALBUMIN 2.8 g/dL (3.2-5.5); ALBUMIN/GLOBULIN RATIO 0.8 (1.0-2.2); BILIRUBIN,TOTAL 0.7 mg/dL (0.2-1.0); CALCIUM 8.5 mg/dL (8.5-10.3); CREATININE 1.1 mg/dL (0.4-1.0); TOTAL PROTEIN 6.3 g/dL (6.7-8.2)
[2018-02-15 07:57] LABS: VANCOMYCIN,TROUGH 18.2 ug/mL (10.0-20.0)
[2018-02-15] MEDS: SENNA 8.6 MG TABLET PO SCH (09:18)
[2018-02-15] MEDS: DOCUSATE SODIUM 250 MG CAPSULE PO SCH (09:18)
[2018-02-15] MEDS: diltiaZEM CD 240 MG CAPSULE PO SCH ×2 (09:18→20:36)
[2018-02-15] MEDS: DULoxetine 30 MG CAPSULE PO SCH (09:18)
[2018-02-15] MEDS: MULTIVITAMIN TABLET PO SCH (09:18)
[2018-02-15] MEDS: ASPIRIN CHEW 81 MG TABLET PO SCH (09:19)
[2018-02-15] MEDS: HEPARIN 5,000 UNIT/ML VIAL SUBQ SCH ×2 (09:19→20:35)
[2018-02-15] MEDS: NYSTATIN POWDER 15 GM TOP SCH ×2 (09:19→20:37)
[2018-02-15] MEDS: VANCOMYCIN INJ 1.75 GM in SODIUM CHLORIDE 0.9% 500 ML IV SCH (09:19)
[2018-02-15] MEDS: SACCHAROMYCES BOULARDII 250 MG CAPSULE PO SCH ×2 (09:19→16:05)
[2018-02-15] MEDS: POLYETHYLENE GLYCOL 3350 17 GM PACKET PO SCH (09:19)
--- NOTE | 2018-02-15 14:45 | PROVIDER PROGRESS NOTE ---
Subjective - Prog Note Date Prog Note Date: 02/15/18 - Subjective Pt reports feeling: Improved Subjective: pt is alert and oriented as her baseline. Pt denies any complaints. UA reveals two kind of bacteria, pt has multiple UTI, palliative care provider continue to follow up pt. Per pieter Cruz advise, pt need sensitivity study to select specific antibiotics for her recurrent UTI with multiple drug resistance. Current Medications - Current Medications Current Medications: Active Medications Acetaminophen (Tylenol) 650 mg PO Q4HR PRN PRN Reason: Pain 1 to 4 Albuterol () 2.5 mg INH RTQ4H PRN PRN Reason: Wheezing Aspirin (St Flavio Aspirin) 81 mg PO DAILY [facility] Last Admin: 02/15/18 09:19 Dose: 81 mg Diltiazem HCl (Cardizem Cd) 240 mg PO BID [facility] Last Admin: 02/15/18 09:18 Dose: 240 mg Diphenhydramine HCl (Benadryl) 25 mg PO DAILY PRN PRN Reason: ITCHING Docusate Sodium (Colace 250mg Capsule) 250 - 500 mg PO DAILY [facility] Last Admin: 02/15/18 09:18 Dose: 500 mg Duloxetine HCl (Cymbalta) 120 mg PO DAILY [facility] Last Admin: 02/15/18 09:18 Dose: 120 mg Heparin Sodium (Porcine) () 5,000 unit SUBQ BID [facility] Last Admin: 02/15/18 09:19 Dose: 5,000 unit Sodium Chloride (Normal Saline 0.9%) 1,000 mls @ 100 mls/hr IV .Q10H [facility] Last Admin: 02/15/18 11:53 Dose: 100 mls/hr Cefepime HCl 1 gm/ Sodium (Chloride) 100 mls @ 200 mls/hr IV Q12H [facility] Last Admin: 02/15/18 14:32 Dose: 200 mls/hr Vancomycin HCl 1.75 gm/ Sodium (Chloride) 500 mls @ 250 mls/hr IV Q24H [facility] Last Infusion: 02/15/18 11:52 Dose: Infused Mineral Oil (Cavilon) 1 applic TOP PRN PRN PRN Reason: Skin Care Multivitamins (Theragran) 1 tab PO DAILY [facility] Last Admin: 02/15/18 09:18 Dose: 1 tab Nystatin (Nystop) 1 applic TOP BID [facility] Last Admin: 02/15/18 09:19 Dose: 1 applic Ondansetron HCl (Zofran Inj) 4 mg IVP Q6HR PRN PRN Reason: Nausea / Vomiting Oxycodone HCl (Roxicodone) 5 mg PO Q4HR PRN PRN Reason: Pain 5 to 7 Last Admin: 02/13/18 12:42 Dose: 5 mg Oxycodone HCl (Roxicodone) 10 mg PO Q4HR PRN PRN Reason: Pain 8 to 10 Last Admin: 02/15/18 05:05 Dose: 10 mg Pantoprazole Sodium (Protonix) 40 mg PO QDAC [facility] Last Admin: 02/15/18 06:08 Dose: 40 mg Melatonin 3 Mg 3 each PO QPM [facility] Last Admin: 02/14/18 21:19 Dose: Not Given Polyethylene Glycol (Miralax) 17 gm PO DAILY [facility] Last Admin: 02/15/18 09:19 Dose: 17 gm Pregabalin (Lyrica) 100 mg PO TID [facility] Last Admin: 02/15/18 14:32 Dose: 100 mg Prochlorperazine Edisylate (Compazine Inj) 10 mg IVP Q6HR PRN PRN Reason: Nausea / Vomiting Promethazine HCl (Phenergan Inj) 25 mg IM Q6HR PRN PRN Reason: Nausea / Vomiting Quetiapine Fumarate (Seroquel) 400 mg PO QPM [facility] Last Admin: 02/14/18 21:19 Dose: 400 mg Saccharomyces Boulardii (Florastor) 250 mg PO BIDWM [facility] Last Admin: 02/15/18 09:19 Dose: 250 mg Senna (Senokot) 8.6 - 17.2 mg PO DAILY [facility] Last Admin: 02/15/18 09:18 Dose: 17.2 mg Sodium Chloride (Normal Saline Flush 0.9%) 10 ml IVP PRN PRN PRN Reason: NEEDED PER PROVIDER ORDERS Sodium Chloride (Normal Saline Flush 0.9%) 10 ml IVP 0100,0900,1700 [facility] Last Admin: 02/15/18 09:19 Dose: Not Given Tizanidine HCl (Zanaflex) 4 mg PO TID [facility] Last Admin: 02/15/18 14:32 Dose: 4 mg Aspirin Chewable [St Flavio Aspirin] 81 mg PO DAILY 09/29/13 diltiaZEM CD [Cardizem Cd] 240 mg PO BID 09/29/13 Multivitamin [Multivitamins] 1 each PO DAILY 06/06/14 Potassium Chloride 30 meq PO DAILY 06/06/14 Losartan [Cozaar] 100 mg PO DAILY 02/14/17 QUEtiapine [SEROquel] 400 mg PO QPM 02/14/17 Senna [Senokot] 17.2 mg PO BID 02/14/17 diphenhydrAMINE [Benadryl] 25 mg PO Q6H PRN 02/14/17 tiZANidine [Zanaflex] 4 mg PO TID 02/14/17 DULoxetine [Cymbalta] 120 mg PO DAILY 02/19/17 Furosemide [Lasix] 40 mg PO BID 04/25/17 Acetaminophen 500 mg PO Q6HR PRN 10/06/17 Meclizine HCl [Motion Sickness Relief] 25 mg PO BID PRN 10/06/17 Melatonin 3 mg PO QPM 10/06/17 Polyethylene Glycol 3350 [Miralax] 17 gm PO BID 10/06/17 Pregabalin [Lyrica] 100 mg PO TID 10/06/17 Albuterol Sulfate [Proair Hfa Inhaler] 2 puffs INH QID PRN MDD four times 11/19/17 Biofreeze 1 applic TOP TID 12/25/17 Bisacodyl [Dulcolax] 5 mg PO DAILY 12/25/17 Hydrocodone/Acetaminophen [Hydrocodone-Acetamin 10-325 mg] 1.5 tab PO TID PRN 12/25/17 Sucralfate [Carafate] 1 gm PO QID PRN 12/25/17 Nystatin [Nystop] 1 applic TOP BID PRN 01/07/18 oxyCODONE [Roxicodone] 5 mg PO TID PRN 02/13/18 Objective - Vital Signs/Intake & Output Reviewed Vital Signs: Yes Vital Signs: Vital Signs x48h Temp Pulse Pulse Resp BP Pulse Ox 02/15/18 08:08 37.0 C 62 18 151/63 H 97 02/15/18 08:07 62 18 Intake & Output: Intake & Output 02/12/18 02/13/18 02/14/18 02/15/18 23:59 23:59 23:59 23:59 Intake Total 3990 3991.000 4420 Output Total 3950 4400 3820 Balance 40 -409.000 600 - Objective General Appearance: positive: No acute distress, Alert. negative: Lethargic Eyes Bilateral: positive: Normal inspection, PERRL, No lid inflammation, Conjunctivae nml ENT: positive: ENT inspection nml, Pharynx nml, No signs of dehydration. negative: Purulent nasal drainage, Pharyngeal erythema, Oral lesions Neck: positive: Nml inspection, Thyroid nml, No JVD, Trachea midline. negative: Thyromegaly, Lymphadenopathy (R), Lymphadenopathy (L), Stiff neck, Swelling/bruising, Tracheal deviation Respiratory: positive: Chest non-tender, No respiratory distress, Breath sounds nml. negative: Wheezes, Rales, Rhonchi Cardiovascular: positive: Regular rate & rhythm, No murmur, No gallop. negative: Irregularly irregular, Extrasystoles, Tachycardia, Bradycardia, JVD present, Systolic murmur, Diastolic murmur Peripheral Pulses: 2+ Radial (R), 2+ Radial (L), 2+ Dorsalis pedis (R) Abdomen: positive: Non-tender, No organomegaly, Nml bowel sounds, No distention. negative: Tenderness, Guarding, Rebound Back: positive: Nml inspection. negative: CVA tenderness (R), CVA tenderness (L) Skin: positive: Color nml, No rash, Warm, Dry. negative: Cyanosis, Diaphoresis, Pallor Extremities: positive: Non-tender, Nml appearance. negative: Calf tenderness, Joint swelling, Zia's sign/cords Neurologic/Psychiatric: positive: Motor nml, Sensation nml, Mood/affect nml. negative: Weakness, Sensory loss, Facial droop, Slurred/abnml speech, Depressed mood/affect - Lab Results Fish Bones: 02/15/18 07:25 02/15/18 07:25 Other Labs: Lab Results x24hrs 02/15/18 02/15/18 02/15/18 Range/Units 07:25 07:25 07:25 WBC 4.6 L (4.8-10.8) x10^3/uL RBC 3.80 L (4.20-5.40) 10^6/uL Hgb 10.4 L (12.0-16.0) g/dL Hct 30.9 L (37.0-47.0) % MCV 81.3 (81.0-99.0) fL MCH 27.4 (27.0-31.0) pg MCHC 33.6 (32.0-36.0) g/dL RDW 14.9 (12.0-15.0) % Plt Count 183 (130-450) 10^3/uL MPV 8.6 (7.9-10.8) fL Neut # (Auto) 2.2 (1.5-6.6) 10^3/uL Lymph # (Auto) 1.4 L (1.5-3.5) 10^3/uL [place] # (Auto) 0.5 (0.0-1.0) 10^3/uL Eos # (Auto) 0.5 (0.0-0.7) 10^3/uL Baso # (Auto) 0.0 (0.0-0.1) 10^3/uL Absolute Nucleated RBC 0.00 x10^3/uL Nucleated RBC % 0.1 /100WBC Sodium 137 (135-145) mmol/L Potassium 3.6 (3.5-5.0) mmol/L Chloride 105 (101-111) mmol/L Carbon Dioxide 27 (21-32) mmol/L Anion Gap 5.0 L (6-13) BUN 21 H (6-20) mg/dL Creatinine 1.1 H (0.4-1.0) mg/dL Estimated GFR (MDRD) 49 L (>89) Glucose 86 (70-100) mg/dL Calcium 8.5 (8.5-10.3) mg/dL Phosphorus 3.0 (2.5-4.6) mg/dL Magnesium 2.0 (1.7-2.8) mg/dL Total Bilirubin 0.7 (0.2-1.0) mg/dL AST 23 (10-42) IU/L ALT 21 (10-60) IU/L Alkaline Phosphatase 62 (42-121) IU/L Total Protein 6.3 L (6.7-8.2) g/dL Albumin 2.8 L (3.2-5.5) g/dL Globulin 3.5 (2.1-4.2) g/dL Albumin/Globulin Ratio 0.8 L (1.0-2.2) Last Dose Date UNK Last Dose Time UNK Vancomycin Trough 18.2 (10.0-20.0) ug/mL ABX Reporting Has patient been on IV antibiotics over the past 48 hours?: Yes Assessment/Plan - Problem List (1) Dehydration Impression: Impression: reatinine continue improve, today creatinine is 1.1 02/14 Improved. creatinine is 1.3 today, it is close to pt's base line continue IVF of NS, lab monitor, vital monitor 02/13 after hydration, pt's renal function is improved, Creatinine from 2.4 to 1.8 now, and pt is more oriented. continue hydration continue lab monitor Patient was brought to the emergency department after a fall. On presentation the patient was lethargic and has history of dementia and was unable to provide any history. The patient does have a chronic indwelling suprapubic catheter with recurrent urinary tract infections. The patient was found to have acute kidney injury and was hypotensive on presentation. Patient did not have a fever or elevated white blood cell count but appeared to have endorgan damage with lethargy and acute kidney injury as well as with hypotension. The patient was found to have a positive urine analysis concerning for ongoing infection. Given the patient's endorgan damage this was considered sepsis. She was given IV fluids and antibiotics in the emergency department and admitted to the [facility]. Plan: IV fluids IV vancomycin and cefepime given the patient's previous cultures of the urine Blood cultures Urine culture Monitor lactic acid (2) Urinary tract infection Conclusion/Plan: 02/15 sensitivity is pending, will followup. 02/14 continue cefepime, UA positive for two kind of bacteria, pt has long hx of UTI. it is important to choose correct antibiotics after sensitivity study. 02/13 UA is positive for UTI, UA culture and sensitivity study are pending continue antibiotics continue blood and UA culture and sensitivity study, follow up Patient presented with sepsis which appears to be secondary to urinary tract infection. Patient has a history of an indwelling suprapubic catheter and has history of recurrent urinary tract infections. The patient has grown multiple different organisms on urine cultures in the past. These include MRSA and Pseudomonas. The patient did have a recent urine culture from 02/01/2018 which grew enterococcus faecalis which was only susceptible to penicillins, vancomycin, tigecycline and and nitrofurantoin. It appears the patient was on nitrofurantoin at [facility] but has developed sepsis despite this. Plan: IV vancomycin and cefepime IV fluids Blood culture Urine culture (3) Metabolic encephalopathy Conclusion/Plan: resolved great improved, continue monitor pt pt is more oriented, close to her baseline continue neuro check, continue orient pt continue lab monitor The patient appears to have metabolic encephalopathy which appears to be secondary to ongoing sepsis and urinary tract infection. The patient does have dementia at baseline but is extremely lethargic and unable to provide any history on presentation. This does not appear to be her baseline. She will be treated for her infection and given fluids in hopes that she does improve her mentation. (4) Acute kidney injury Conclusion/Plan: resolved 02/14 improved. creatinine is 1.3 continue IVF, lab monitor 02/13 improved, now creatinine is 1.8 from admission 2.4 continue IVF continue lab monitor On presentation to the emergency department the patient has acute kidney injury with a creatinine of 2.4 which is elevated from a baseline of 1.0 just a month earlier. The patient appears to have prerenal azotemia as she does have a elevated BUN of 45 and also appears very dry on examination. The patient likely has developed this acute kidney injury secondary to ongoing sepsis. Plan: IV fluids Hold diuretics Monitor creatinine Avoid nephrotoxic agents (5) Diabetes Conclusion/Plan: A1C is 5.5, no DM Patient has a history of diabetes which appears to be diet controlled at this time. The patient does not appear to be on any insulin or oral diabetic agents. The patient's blood glucose on presentation is 111. At this point we will not start the patient on any insulin. We will get an A1c if that is elevated we will consider placing her on sliding scale insulin. At this time we will just check blood glucose daily and place her on a diabetic diet. (6) HTN (hypertension) Conclusion/Plan: The patient has a history of hypertension but on presentation she is hypotensive secondary to ongoing sepsis. For now we will hold all of the patient's antihypertensive medications. Patient will be given IV fluids and we will continue to monitor the blood pressure once a blood pressure does become elevated we will consider restarting her antihypertensives. (7) Depression Conclusion/Plan: stable, The patient has a history of depression and is on Cymbalta and Seroquel. We will continue these medications while she is hospitalized.
--- NOTE | 2018-02-15 18:21 | CONSULTATION NOTE ---
Palliative Care Follow Up - Referral Referring Provider: Piyush ACOSTA Time of Visit: 9:30-10:15 Referral setting: Hospitalized patient Referral Reason: UTI/IGOR/Goals of care - Information Sources Records reviewed: Previous records reviewed History/Review of Systems obtained from: Patient Exam limitations: Clinical condition (patient with poor recall of events; increase cognitive deficits from baseline) - History of Present Illness Update Brief HPI Update: This is a 72-year-old woman well known to palliative care as [facility]. 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 She does have known chronic kidney disease, diabetes, and hypertension. Patient does not recall the series of events, she does note that she felt "flat on her face". Patient does present with bruising and swelling on her forehead, about 3 x 3 cm area of tenderness. She does complain of minor headache, she does not recall where she is, she does recognize myself, and is anxious to return "home", though is unable to name where home is. Though she does have short-term memory issues at baseline, she does appear much more confused from her norm. She also is presenting with some paranoia, she is seen by [facility], and psychiatry to manage her mental health issues on a regular basis. She did have her Seroquel recently increased to 400 mg within the last 6 weeks. Patient denies pain in her right hand and wrist, usually this is been sharp shooting and fairly distressing to patient. This was the goal for the surgery was to release and improve her pain management. She does have underlying chr onic back pain with multiple surgeries including back spasms, and then does often present with phantom limb pain and her AKA. She denies pain at the time of visit, she reports she has been getting oxycodone "2 tabs" and wondering why "we withhold that". In the past with increased narcotic use she has gotten hypoxic, and more confused, she is at high risk for falls because of her transfers has been a fine balance of finding pain relief and impacting her safety. She had had some improvement from changing from gabapentin to Lyrica, were awaiting the outcome of the surgery to see if further adjustments 10 pain regimen were warranted. Social History - Living Situation Living arrangement: assisted Support System: [facility], this is been with mixed feelings for patient, she does perceive that as her home and has a very nice room fixed up with her belongings, but then gets frustrated with managing needs and staff. Per patient's report and experience, her family is very little involved in [facility]. She has not designated any medical DURABLE POWER OF COURT LIAISON, but is aware it defaults to her daughter. Patient does not present today with decision-making capacity, usually at her baseline she can weigh benefits and burdens regarding medical decisions with taking time to explain information. Medications/Allergies - Medications Active Medication List: Active Medications Acetaminophen (Tylenol) 650 mg PO Q4HR PRN PRN Reason: Pain 1 to 4 Albuterol () 2.5 mg INH RTQ4H PRN PRN Reason: Wheezing Aspirin (St Flavio Aspirin) 81 mg PO DAILY [facility] Last Admin: 02/15/18 09:19 Dose: 81 mg Diltiazem HCl (Cardizem Cd) 240 mg PO BID [facility] Last Admin: 02/15/18 09:18 Dose: 240 mg Diphenhydramine HCl (Benadryl) 25 mg PO DAILY PRN PRN Reason: ITCHING Docusate Sodium (Colace 250mg Capsule) 250 - 500 mg PO DAILY [facility] Last Admin: 02/15/18 09:18 Dose: 500 mg Duloxetine HCl (Cymbalta) 120 mg PO DAILY [facility] Last Admin: 02/15/18 09:18 Dose: 120 mg Heparin Sodium (Porcine) () 5,000 unit SUBQ BID [facility] Last Admin: 02/15/18 09:19 Dose: 5,000 unit Cefepime HCl 1 gm/ Sodium (Chloride) 100 mls @ 200 mls/hr IV Q12H [facility] Last Infusion: 02/15/18 15:46 Dose: Infused Vancomycin HCl 1.75 gm/ Sodium (Chloride) 500 mls @ 250 mls/hr IV Q24H [facility] Last Infusion: 02/15/18 11:52 Dose: Infused Sodium Chloride (Normal Saline 0.9%) 1,000 mls @ 75 mls/hr IV .[id number] [facility] Mineral Oil (Cavilon) 1 applic TOP PRN PRN PRN Reason: Skin Care Multivitamins (Theragran) 1 tab PO DAILY [facility] Last Admin: 02/15/18 09:18 Dose: 1 tab Nystatin (Nystop) 1 applic TOP BID [facility] Last Admin: 02/15/18 09:19 Dose: 1 applic Ondansetron HCl (Zofran Inj) 4 mg IVP Q6HR PRN PRN Reason: Nausea / Vomiting Oxycodone HCl (Roxicodone) 5 mg PO Q4HR PRN PRN Reason: Pain 5 to 7 Last Admin: 02/13/18 12:42 Dose: 5 mg Oxycodone HCl (Roxicodone) 10 mg PO Q4HR PRN PRN Reason: Pain 8 to 10 Last Admin: 02/15/18 16:05 Dose: 10 mg Pantoprazole Sodium (Protonix) 40 mg PO QDAC [facility] Last Admin: 02/15/18 06:08 Dose: 40 mg Melatonin 3 Mg 3 each PO QPM [facility] Last Admin: 02/14/18 21:19 Dose: Not Given Polyethylene Glycol (Miralax) 17 gm PO DAILY [facility] Last Admin: 02/15/18 09:19 Dose: 17 gm Pregabalin (Lyrica) 100 mg PO TID [facility] Last Admin: 02/15/18 14:32 Dose: 100 mg Prochlorperazine Edisylate (Compazine Inj) 10 mg IVP Q6HR PRN PRN Reason: Nausea / Vomiting Promethazine HCl (Phenergan Inj) 25 mg IM Q6HR PRN PRN Reason: Nausea / Vomiting Quetiapine Fumarate (Seroquel) 400 mg PO QPM [facility] Last Admin: 02/14/18 21:19 Dose: 400 mg Saccharomyces Boulardii (Florastor) 250 mg PO BIDWM [facility] Last Admin: 02/15/18 16:05 Dose: 250 mg Senna (Senokot) 8.6 - 17.2 mg PO DAILY [facility] Last Admin: 02/15/18 09:18 Dose: 17.2 mg Sodium Chloride (Normal Saline Flush 0.9%) 10 ml IVP PRN PRN PRN Reason: NEEDED PER PROVIDER ORDERS Sodium Chloride (Normal Saline Flush 0.9%) 10 ml IVP 0100,0900,1700 [facility] Last Admin: 02/15/18 09:19 Dose: Not Given Tizanidine HCl (Zanaflex) 4 mg PO TID [facility] Last Admin: 02/15/18 14:32 Dose: 4 mg Aspirin Chewable [St Flavio Aspirin] 81 mg PO DAILY 09/29/13 diltiaZEM CD [Cardizem Cd] 240 mg PO BID 09/29/13 Multivitamin [Multivitamins] 1 each PO DAILY 06/06/14 Potassium Chloride 30 meq PO DAILY 06/06/14 Losartan [Cozaar] 100 mg PO DAILY 02/14/17 QUEtiapine [SEROquel] 400 mg PO QPM 02/14/17 Senna [Senokot] 17.2 mg PO BID 02/14/17 diphenhydrAMINE [Benadryl] 25 mg PO Q6H PRN 02/14/17 tiZANidine [Zanaflex] 4 mg PO TID 02/14/17 DULoxetine [Cymbalta] 120 mg PO DAILY 02/19/17 Furosemide [Lasix] 40 mg PO BID 04/25/17 Acetaminophen 500 mg PO Q6HR PRN 10/06/17 Meclizine HCl [Motion Sickness Relief] 25 mg PO BID PRN 10/06/17 Melatonin 3 mg PO QPM 10/06/17 Polyethylene Glycol 3350 [Miralax] 17 gm PO BID 10/06/17 Pregabalin [Lyrica] 100 mg PO TID 10/06/17 Albuterol Sulfate [Proair Hfa Inhaler] 2 puffs INH QID PRN MDD four times 11/19/17 Biofreeze 1 applic TOP TID 12/25/17 Bisacodyl [Dulcolax] 5 mg PO DAILY 12/25/17 Hydrocodone/Acetaminophen [Hydrocodone-Acetamin 10-325 mg] 1.5 tab PO TID PRN 12/25/17 Sucralfate [Carafate] 1 gm PO QID PRN 12/25/17 Nystatin [Nystop] 1 applic TOP BID PRN 01/07/18 oxyCODONE [Roxicodone] 5 mg PO TID PRN 02/13/18 - Allergies Allergies/Adverse Reactions: Allergies Allergy/AdvReac Type Severity Reaction Status Date / Time erythromycin base Allergy Severe Anaphylaxis Verified 02/12/18 23:19 [Erythromycin Base] Penicillins Allergy Severe Anaphylaxis Verified 02/12/18 23:19 Sulfa (Sulfonamide Allergy Severe Redness/High Verified 02/12/18 23:19 Antibiotics) fever lisinopril Allergy Unknown Unknown Verified 02/12/18 23:19 ceftriaxone Allergy Rash Verified 02/12/18 23:19 quinidine Allergy Rash Verified 02/12/18 23:19 Review of Systems - Constitutional Constitutional: reports: Fatigue. denies: Fever - Ears, Nose & Throat Ears, Nose & Throat: reports: Postnasal drainage, Dental decay (getting dental work done at [place]) - Cardiovascular Cardiovascular: reports: Lightheadedness, Decr. exercise tolerance - Respiratory Respiratory: denies: SOB at rest - Gastrointestinal Gastrointestinal: reports: Constipation (patient does not have wheelchair; does not want to "poop" in front of strangers. she is at baseline able to toilet self) - Genitourinary Genitourinary: reports: Other (suprapubic catheter detention) - Musculoskeletal Musculoskeletal: reports: Back pain, Stiffness, Limited range of motion, Muscle weakness, Transfer issues (usually can transfer bed to wheelchair and toilet) - Integumentary Integumentary: reports: Dryness - Neurological Neurological: reports: General weakness, Memory problems (appear worse than baseline;) - Psychiatric Psychiatric: reports: Depression, Anxiety, Delusions - Endocrine Endocrine: reports: Diabetes type 2 - Hematologic/Lymphatic Hematologic/Lymphatic: reports: Anemia, Recurrent infections (recently treated after ED visit 02/01) - All Other Systems All Other Systems: reports: Reviewed and negative Physical Exam - Vital Signs Vital Signs: Vital Signs x48h Temp Pulse Resp BP Pulse Ox 02/15/18 15:43 37.0 C 57 L 18 134/68 H 96 - Physical Exam General Appearance: positive: Mild distress, Anxious Eyes Bilateral: positive: Normal inspection ENT: positive: Other (poor dentition;) Neck: positive: No JVD, Trachea midline Cardiovascular: positive: Regular rate & rhythm Respiratory: positive: Diminished in bases. negative: Wheezes Abdomen: positive: Soft, Nml bowel sounds, Obese Skin: positive: Pallor, Bruising (right forehead) Extremities: positive: Pedal edema (slight in right leg) Neurologic/Psychiatric: positive: Disoriented to place, Disoriented to time, Other (some paranoia) Palliative Care - POLST Patient has POLST: Yes POLST Status: DNR, Comfort Measures Pain: Location (patient unclear of source of pain when asked; reports right hand better; back/leg no hurting during exam) Tiredness/Fatigue: Moderate (4-6) Constipation: Yes, Opoid induced, Unmanaged Performance Status: Patient distress not to have wheelchair available, patient is actually quite mobile in her room. She has been limited by her carpal tunnel syndrome and not able to go long distances, she is hopeful with recovery is will improve. She is dependent for bathing services at the facility, but is able to toilet and feed herself. - Palliative Care Discussion: Patient does present as distressed, she does seem unclear where she is in the goals of her current medical treatment. We did review slowly she is getting antibiotics because she has an infection again, and she will be returning back to [facility], and that everyone is working hard to make her feel better and get better again. Patient does not recall having her family/daughter come visit her here in the hospital, and does not actually able to recall the last few days or the series of events that led up to this. This does cause her some distress, and adds to her baseline paranoia, and started talking about how her grandchildren are "in trouble". Unable to explain why these thoughts are present currently, and needed to be redirected. Results - Lab Results Lab results reviewed: Yes Fish Bones: 02/15/18 07:25 02/15/18 07:25 Lab and Imaging Results: Lab Results x24hrs 02/15/18 02/15/18 02/15/18 Range/Units 07:25 07:25 07:25 WBC 4.6 L (4.8-10.8) x10^3/uL RBC 3.80 L (4.20-5.40) 10^6/uL Hgb 10.4 L (12.0-16.0) g/dL Hct 30.9 L (37.0-47.0) % MCV 81.3 (81.0-99.0) fL MCH 27.4 (27.0-31.0) pg MCHC 33.6 (32.0-36.0) g/dL RDW 14.9 (12.0-15.0) % Plt Count 183 (130-450) 10^3/uL MPV 8.6 (7.9-10.8) fL Neut # (Auto) 2.2 (1.5-6.6) 10^3/uL Lymph # (Auto) 1.4 L (1.5-3.5) 10^3/uL Dougherty # (Auto) 0.5 (0.0-1.0) 10^3/uL Eos # (Auto) 0.5 (0.0-0.7) 10^3/uL Baso # (Auto) 0.0 (0.0-0.1) 10^3/uL Absolute Nucleated RBC 0.00 x10^3/uL Nucleated RBC % 0.1 /100WBC Sodium 137 (135-145) mmol/L Potassium 3.6 (3.5-5.0) mmol/L Chloride 105 (101-111) mmol/L Carbon Dioxide 27 (21-32) mmol/L Anion Gap 5.0 L (6-13) BUN 21 H (6-20) mg/dL Creatinine 1.1 H (0.4-1.0) mg/dL Estimated GFR (MDRD) 49 L (>89) Glucose 86 (70-100) mg/dL Calcium 8.5 (8.5-10.3) mg/dL Phosphorus 3.0 (2.5-4.6) mg/dL Magnesium 2.0 (1.7-2.8) mg/dL Total Bilirubin 0.7 (0.2-1.0) mg/dL AST 23 (10-42) IU/L ALT 21 (10-60) IU/L Alkaline Phosphatase 62 (42-121) IU/L Total Protein 6.3 L (6.7-8.2) g/dL Albumin 2.8 L (3.2-5.5) g/dL Globulin 3.5 (2.1-4.2) g/dL Albumin/Globulin Ratio 0.8 L (1.0-2.2) Last Dose Date UNK Last Dose Time UNK Vancomycin Trough 18.2 (10.0-20.0) ug/mL Impression and Recommendations - Palliative Care Impression: This is a 72-year-old woman who presents after a fall, currently attributed to sepsis secondary to urinary tract infection. Patient has had recurrent infections, has known chronic kidney disease, chronic pain syndrome, and underlying mental health issues. She resides at baseline at [facility], and is most comfortable in her own environment. Palliative care provide support for pain and symptom management as well as psychosocial support in the outpatient setting, she is quite complex and has not been able to really define goals of care for herself other than does not want "heroics". Recommendations/Counseling Done: 1. Confusion. Patient is not back to baseline, she does have some underlying short-term memory issues, but is much more confused and presents with more cognitive deficits than baseline than I have seen her in the past. Of note, patient did hit her head with fall, if metabolic encephalopathy does not clear, no head scans in records. 2. UTI. Patient does have long history of multiple drug-resistant infections, most recently was being treated with nitrofurantoin with progressive sepsis. Did follow-up with [facility], if patient does need IV antibiotics will need PICC line placed secondary to her poor venous access. 3. Postop surgery for right carpal tunnel syndrome. Hand has some mild swelling, good color and good movement as well as decreased pain in the area. Will need continued monitoring. Patient did not allow me to unwrap hand to examine, she says they "checked it", I do not find record of this. I will retry again tomorrow. 4. Paranoia. Patient does seem out of sorts, is having some increased delu sions, often feels staff at baseline are "persecutory", will need to approach her quite gently, give good information when attempting procedures, patient does get distressed with getting "talked down to", can be managed with a calm gentle approach. 5. Chronic pain syndrome. Patient currently on her Lyrica 100 mg 3 times daily, unclear given her current situation but her pain medication needs again to be, she does have as needed breakthrough pain medication which continue along this line until discharged back to her long-term setting. 6. Advanced care planning. This is quite complicated in the context of her complex health history and psych issues, patient does present with some decision -making capacity at baseline, though today her confusion seems worse. She has not designated decision maker, and actually has been quite clear about not including her daughter in her care plan, though she does understand by default if she were unable to participate or give consent that that is where the medical system would go for permisssion. She does have a [facility] ST, it is a do not attempt resuscitation and comfort measures, though she is continued to have her acute issues addressed regarding her infections. I suspect in the bigger picture as she will not let us include her family in goals of care conversations, will continue to need to weigh benefits and burdens when she comes into the ED and hospital each episode. Time Spent: 45 minutes with greater than 50% of this done in counseling and coordination of care with hospitalist and [facility], will see patient on return to her home setting
[2018-02-15] MEDS: QUEtiapine 100 MG TABLET PO SCH (20:36)
[2018-02-16] MEDS: SODIUM CHLORIDE 0.9% 1,000 ML IV SCH (00:39)
[2018-02-16] MEDS: SODIUM CHLORIDE FLUSH 0.9% 10 ML SYRINGE IVP SCH ×2 (00:41→10:11)
[2018-02-16] MEDS: CEFEPIME 1 GM in SODIUM CHLORIDE 0.9% MINIBAG 100 ML IV SCH (02:44)
[2018-02-16] MEDS: PANTOPRAZOLE 40 MG TABLET PO SCH (05:51)
[2018-02-16] MEDS: PREGABALIN 100 MG CAPSULE PO SCH (05:52)
[2018-02-16] MEDS: tiZANidine 4 MG TABLET PO SCH (05:52)
[2018-02-16] MEDS: oxyCODONE 5 MG TABLET PO PRN ×2 (06:20→10:12)
--- NOTE | 2018-02-16 08:38 | Discharge Plan ---
"Discharge Plan for SNF / LETTY - Discharge Plan And Transition Orders Disposition: 03 SNF DC/Xfer Condition: Good Allergies and Adverse Reactions: Allergies Allergy/AdvReac Type Severity Reaction Status Date / Time erythromycin base Allergy Severe Anaphylaxis Verified 02/12/18 23:19 [Erythromycin Base] Penicillins Allergy Severe Anaphylaxis Verified 02/12/18 23:19 Sulfa (Sulfonamide Allergy Severe Redness/High Verified 02/12/18 23:19 Antibiotics) fever lisinopril Allergy Unknown Unknown Verified 02/12/18 23:19 ceftriaxone Allergy Rash Verified 02/12/18 23:19 quinidine Allergy Rash Verified 02/12/18 23:19 - SNF / LETTY Transition Orders Admit to (Facility): Care Age of Ad[facility] Under the care of (Name): Dr. Washington Discharge Diagnosis: Pyelonephritis (N12) Sepsis (A41.9) Metabolic encephalopathy (G93.41) IGOR (acute kidney injury) (N17.9) Diabetes mellitus type 2, noninsulin dependent (E11.9) Hypertension (I10) Depression (F32.9) Chronic pain (G89.29) Medicare Certification Statement: I certify that Post Hospital [facility] care is medically necessary on a continuing basis for any of the conditions for which she/he is receiving care during hospitalization. Notify PCP of admission and forward orders to primary provider for signature. Weight on admission and: Monthly Other Notification Orders: Call PCP immediately if patient develops dyspnea, chest pain/tightness or edema. House Bowel Program: Yes Additional Bowel Program Orders: If no BM after 2 days, nurse may give M.O.M. 30ml PO PRN and/or ducolax Supp 1 NC and/or DENZEL 250mg P.O., and/or senna 1-2 tabs PO. On day 3 nurse may give repeat above order until residents constipation is resolved. Annual Influenza Vaccine (between Jan 09 and August 08): Yes Two-step PPD per [facility] [id number] or approved exception documents: Yes Treatments & Other Orders: Continue treatment of complicated UTI using 2 antibiotics. Medication Orders: PLEASE REFER TO THE DISCHARGE MEDICATION LIST. Insulin Orders?: No - Medications New Prescriptions: Ciprofloxacin HCl [Cipro] 500 mg PO BID 6 Days #12 tablet Nitrofurantoin Macrocrystal [Nitrofurantoin] 100 mg PO Q6H 6 Days #24 capsule Saccharomyces Boulardii [Florastor] 250 mg PO BID #60 capsule - Diet Type: Geriatric Texture: Regular Liquids: Thin May have monthly special meal: Yes - Therapies | Activity Rehabilitation Potential: Maintain present ADL Functional Activity: Activity as Tolerated Weight Bearing: Full Weight"
--- NOTE | 2018-02-16 09:09 | DISCHARGE SUMMARY ---
Discharge Summary Admit Date: 02/13/18 Discharge Date: 02/16/18 Discharging Provider: DAVE Alexandre Primary Care Provider: Dr. Washington/Jazlyn Cruz Code Status: Do Not Attempt Resuscitation Condition at Discharge: Good Discharge Disposition: 03 SNF DC/Xfer Discharge Facility Name: [facility] - DIAGNOSES Admission Diagnoses: Sepsis, unspecified organism (A41.9) Urinary tract infection, site not specified (N39.0) Metabolic encephalopathy (G93.41) Acute kidney failure, unspecified (N17.9) Type 2 diabetes mellitus without complications (E11.9) Essential (primary) hypertension (I10) Major depressive disorder, single episode, unspecified (F32.9) Discharge Diagnoses with Status of Each Condition: Pyelonephritis (N12) new on this admission, stable with 2 oral agents to continue. Sepsis (A41.9) ruled out, stable. Metabolic encephalopathy (G93.41) improved, baseline dementia. IGOR (acute kidney injury) (N17.9) resolved. Diabetes mellitus type 2, noninsulin dependent (E11.9) stable. Hypertension (I10) chronic, stable. Depression (F32.9) chronic, stable. Chronic pain (G89.29) chronic, stable. - HPI History of Present Illness: HPI per Dr. Torres: Patient is a 72-year-old female resident of [facility] with a past medical history significant for dementia, chronic indwelling suprapubic catheter with recurrent urinary tract infections, type 2 diabetes, she is status post left above-knee amputation, hypertension, chronic back pain, major depressive disorder and generalized anxiety she was brought into the emergency department this evening after she was found on the floor in her room at [facility]. It appears that the patient had an unwitnessed fall out of her wheelchair and was found 10th at a 90 degree angle in the wheelchair with her face on the floor. The patient's indwelling suprapubic catheter was still in place. The patient was subsequently brought in to the emergency department and on presentation was extremely lethargic. The patient was not able to provide any history. She could not even tell me her name and did not know where she was. She was responsive to verbal stimuli and could open her eyes but would fall back asleep very quickly. The patient did state she was in pain but could not describe where her pain was. She could not otherwise give me any complaints or history. On presentation to the emergency department the patient was afebrile, mildly bradycardic with a heart rate of 58 and hypotensive with a blood pressure of 84/54 and hypoxic with O2 saturation of 88% on room air. The patient was given 1 L of fluid in the emergency department and blood pressure did improve to 104/56 but was still borderline. The patient's lab work did not reveal any leukocytosis, it did reveal a chronic anemia and acute kidney injury with a creatinine of 2.4 which was elevated from 1.0 just a month before. The patient's lactic acid was negative and her troponin was negative. The patient's urinalysis did reveal greater than 25 WBCs with positive nitrite, large leukocyte Estrace and bacteria. The patient did undergo a chest x-ray which was normal. Given the patient's presentation with lethargy, hypotension and acute kidney injury she was felt to be septic secondary to a urinary tract infection and was admitted to the medical [facility]as for IV antibiotics and IV fluids. - HOSPITAL COURSE Hospital Course: (1) Sepsis Patient was brought to the emergency department after a fall. On presentation the patient was lethargic and has history of dementia and was unable to provide any history. The patient does have a chronic indwelling suprapubic catheter with recurrent urinary tract infections. The patient was found to have acute kidney injury and was hypotensive on presentation. Patient did not have a fever or elevated white blood cell count but appeared to have end organ damage with lethargy and acute kidney injury as well as with hypotension. The patient was found to have a positive urine analysis concerning for ongoing infection. Given the patient's end organ damage this was considered sepsis. She was given IV fluids and antibiotics using vanco and cefepime. She had serial lactic acid levels, which normalized and this condition was ruled out after 48 hours of hospital stay. A MRSA nasal swab was positive on 02/13/18. (2) pyelonephritis Patient presented with sepsis which appears to be secondary to urinary tract infection. Patient has a history of an indwelling suprapubic catheter and has history of recurrent urinary tract infections. The patient has grown multiple different organisms on urine cultures in the past. These include MRSA and Pseudomonas. The patient did have a recent urine culture from 02/01/2018 which grew enterococcus faecalis which was only susceptible to penicillins, vancomycin, tigecycline and and nitrofurantoin. It appears the patient was on nitrofurantoin at [facility] but has developed sepsis despite this. She was continued on IV vancomycin and cefepime, until an identifiable pathogen could be found. The urine culture showed both pseudomones aeruginosa and entercoccus faecium, so final sensitivities indicated to continue treatment orally with Cipro and Macrobid for another 4 days with a probiotic. (3) Metabolic encephalopathy The patient appeared to have metabolic encephalopathy which was likely secondary to ongoing sepsis and urinary tract infection. The patient does have dementia at baseline but is extremely lethargic and unable to provide any history on presentation. She was treated for her infection and given fluids in hopes that she does improve her mentation. On the day of discharge, the patient's mentation was improved. (4) Acute kidney injury On presentation to the emergency department the patient has acute kidney injury with a creatinine of 2.4 which is elevated from a baseline of 1.0 just a month earlier. The patient appears to have pre-renal azotemia as she did have a elevated BUN of 45 and also appeared to be very dry on examination. The patient likely had developed this acute kidney injury secondary to ongoing sepsis. She was treated with IV fluids, her diuretics were held, her creatinine was monitored, and we avoided nephrotoxic agents. At the time of discharge, the patient's creatinine was normalized at 1.1. 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 The patient does not appear to be on any insulin or oral diabetic agents. The patient's blood glucose on presentation was 111. A hemoglobin A1c was 5.5%, showing good control. (6) HTN (hypertension) The patient has a history of hypertension but on presentation she is hypotensive secondary to ongoing sepsis. The patient's antihypertensive medications were initially placed on hold, and resumed prior to discharge. (7) Depression The patient has a history of depression and is on Cymbalta and Seroquel and she was continued on these medications while she is hospitalized. Disposition: The patient was stable at the time of discharge. She was transported via wheelchair van to [facility], which is where she resides. - ALLERGIES Allergies/Adverse Reactions: Allergies Allergy/AdvReac Type Severity Reaction Status Date / Time erythromycin base Allergy Severe Anaphylaxis Verified 02/12/18 23:19 [Erythromycin Base] Penicillins Allergy Severe Anaphylaxis Verified 02/12/18 23:19 Sulfa (Sulfonamide Allergy Severe Redness/High Verified 02/12/18 23:19 Antibiotics) fever lisinopril Allergy Unknown Unknown Verified 02/12/18 23:19 ceftriaxone Allergy Rash Verified 02/12/18 23:19 quinidine Allergy Rash Verified 02/12/18 23:19 - MEDICATIONS Home Medications: Ambulatory Orders Medication Instructions Recorded Confirmed Aspirin Chewable [St Flavio 81 mg PO DAILY 09/29/13 02/12/18 Aspirin] diltiaZEM CD [Cardizem Cd] 240 mg PO BID 09/29/13 02/12/18 Multivitamin [Multivitamins] 1 each PO DAILY 06/06/14 02/12/18 Potassium Chloride 30 meq PO DAILY 06/06/14 02/12/18 Losartan [Cozaar] 100 mg PO DAILY 02/14/17 02/12/18 QUEtiapine [SEROquel] 400 mg PO QPM 02/14/17 02/12/18 Senna [Senokot] 17.2 mg PO BID 02/14/17 02/12/18 diphenhydrAMINE [Benadryl] 25 mg PO Q6H PRN 02/14/17 02/13/18 tiZANidine [Zanaflex] 4 mg PO TID 02/14/17 02/12/18 DULoxetine [Cymbalta] 120 mg PO DAILY 02/19/17 02/12/18 Furosemide [Lasix] 40 mg PO BID 04/25/17 02/12/18 Acetaminophen 500 mg PO Q6HR PRN 10/06/17 02/12/18 Meclizine HCl [Motion Sickness 25 mg PO BID PRN 10/06/17 02/12/18 Relief] Melatonin 3 mg PO QPM 10/06/17 02/12/18 Polyethylene Glycol 3350 [Miralax] 17 gm PO BID 10/06/17 02/13/18 Pregabalin [Lyrica] 100 mg PO TID 10/06/17 02/12/18 Albuterol Sulfate [Proair Hfa 2 puffs INH QID PRN MDD four times 11/19/17 02/13/18 Inhaler] Biofreeze 1 applic TOP TID 12/25/17 02/12/18 Bisacodyl [Dulcolax] 5 mg PO DAILY 12/25/17 02/13/18 Hydrocodone/Acetaminophen 1.5 tab PO TID PRN 12/25/17 02/13/18 [Hydrocodone-Acetamin 10-325 mg] Sucralfate [Carafate] 1 gm PO QID PRN 12/25/17 02/13/18 Nystatin [Nystop] 1 applic TOP BID PRN 01/07/18 02/12/18 oxyCODONE [Roxicodone] 5 mg PO TID PRN 02/13/18 02/13/18 Ciprofloxacin HCl [Cipro] 500 mg PO BID 6 Days #12 tablet 02/16/18 Nitrofurantoin Macrocrystal 100 mg PO Q6H 6 Days #24 capsule 02/16/18 [Nitrofurantoin] Saccharomyces Boulardii [Florastor] 250 mg PO BID #60 capsule 02/16/18 - PHYSICAL EXAM AT DISCHARGE General Appearance: positive: No acute distress, Alert, Mild distress, Anxious Eyes Bilateral: positive: Normal inspection, PERRL ENT: positive: ENT inspection nml, Pharynx nml Neck: positive: Thyroid nml, No JVD, Trachea midline Respiratory: positive: Chest non-tender, No respiratory distress, Breath sounds nml Cardiovascular: positive: Regular rate & rhythm, No gallop, Systolic murmur Peripheral Pulses: positive: 1+ Abdomen: positive: Non-tender, No organomegaly, Nml bowel sounds Back: positive: Nml inspection Skin: positive: Color nml, No rash, Warm, Dry Extremities: positive: Joint swelling (L BKA, ) Neurologic/Psychiatric: positive: CN's nml (2-12), Motor nml, Disoriented to time, Weakness, Sensory loss, Depressed mood/affect Reflexes: Bicep (R): 2+, Bicep (L): 2+ - LABS Result Diagrams: 02/15/18 07:25 02/15/18 07:25 - DIAGNOSTIC IMAGING Diagnostic Imaging Results: Final report reviewed Diagnostic Imaging Results Comments: EXAM: CHEST RADIOGRAPHY EXAM DATE: 02/12/2018 11:43 PM. IMPRESSION: Normal single view chest. - FOLLOW UP Follow Up: Admit to (Facility): [facility] Under the care of (Name): Dr. Washington Discharge Diagnosis: Pyelonephritis (N12) Sepsis (A41.9) Metabolic encephalopathy (G93.41) IGOR (acute kidney injury) (N17.9) Diabetes mellitus type 2, noninsulin dependent (E11.9) Hypertension (I10) Depression (F32.9) Chronic pain (G89.29) - TIME SPENT Time Spent in Discharge (Minutes): 45
[2018-02-16] MEDS: SACCHAROMYCES BOULARDII 250 MG CAPSULE PO SCH (10:10)
[2018-02-16] MEDS: diltiaZEM CD 240 MG CAPSULE PO SCH (10:10)
[2018-02-16] MEDS: ASPIRIN CHEW 81 MG TABLET PO SCH (10:10)
[2018-02-16] MEDS: DOCUSATE SODIUM 250 MG CAPSULE PO SCH (10:10)
[2018-02-16] MEDS: HEPARIN 5,000 UNIT/ML VIAL SUBQ SCH (10:11)
[2018-02-16] MEDS: SENNA 8.6 MG TABLET PO SCH (10:11)
[2018-02-16] MEDS: MULTIVITAMIN TABLET PO SCH (10:11)
[2018-02-16] MEDS: POLYETHYLENE GLYCOL 3350 17 GM PACKET PO SCH (10:11)
[2018-02-16] MEDS: DULoxetine 30 MG CAPSULE PO SCH (10:11)
[2018-02-16] MEDS: NYSTATIN POWDER 15 GM TOP SCH (10:11)
[2018-02-16] MEDS: VANCOMYCIN INJ 1.75 GM in SODIUM CHLORIDE 0.9% 500 ML IV SCH (10:53)
[2018-02-16 13:56] VITALS: BP 142/83
== END 2018-02-16 14:37 | DRG 699 ==
LOC: EDUNIT# → ED 23:08 → MS3 02-13 00:30
PROVIDERS: ADMIT Internal Medicine; ATTEND Nurse Practitioner
DX: N39.0 Urinary tract infection, site not specified (principal); T83.510A Infection and inflammatory reaction due to cystostomy catheter, initial encounter; G93.41 Metabolic encephalopathy; N17.9 Acute kidney failure, unspecified; E78.00 Pure hypercholesterolemia, unspecified; J45.909 Unspecified asthma, uncomplicated; E11.42 Type 2 diabetes mellitus with diabetic polyneuropathy; E11.59 Type 2 diabetes mellitus with other circulatory complications; I10 Essential (primary) hypertension; F32.9 Major depressive disorder, single episode, unspecified; G89.29 Other chronic pain; M54.9 Dorsalgia, unspecified; E86.0 Dehydration; F03.90 Unspecified dementia, unspecified severity, without behavioral disturbance, psychotic disturbance, mood disturbance, and anxiety; S00.83XA Contusion of other part of head, initial encounter; W05.0XXA Fall from non-moving wheelchair, initial encounter; Z22.322 Carrier or suspected carrier of Methicillin resistant Staphylococcus aureus; B96.5 Pseudomonas (aeruginosa) (mallei) (pseudomallei) as the cause of diseases classified elsewhere; K21.9 Gastro-esophageal reflux disease without esophagitis; K59.09 Other constipation; D64.89 Other specified anemias; F41.9 Anxiety disorder, unspecified; F20.9 Schizophrenia, unspecified; M19.90 Unspecified osteoarthritis, unspecified site; Z89.612 Acquired absence of left leg above knee; G54.6 Phantom limb syndrome with pain; Z66 Do not resuscitate; Z51.5 Encounter for palliative care; Y92.129 Unspecified place in nursing home as the place of occurrence of the external cause; R29.6 Repeated falls; Z79.891 Long term (current) use of opiate analgesic; Z79.82 Long term (current) use of aspirin; Z79.51 Long term (current) use of inhaled steroids; Z91.81 History of falling; S09.90XA Unspecified injury of head, initial encounter; Z87.01 Personal history of pneumonia (recurrent); Z86.19 Personal history of other infectious and parasitic diseases; Z87.440 Personal history of urinary (tract) infections
CPT/HCPCS: 36415; 71045; 80053; 80202; 81001; 81003; 83036; 83605; 83690; 83735; 83880; 84100; 84484; 85025; 87040; 87077; 87086; 87181; 87640; 96360; 99233; 99283; 99284; 99285

== ENCOUNTER → 2018-03-13 | Outpatient (CLI) | payer MEDICARE, MEDICAID ==
[2018-03-13 16:21] LABS: BASOPHILS % (AUTO) 0.6 %; EOSINOPHILS # (AUTO) 0.4 10^3/uL (0.0-0.7); EOSINOPHILS % (AUTO) 7.9 %; HGB - HEMOGLOBIN 11.8 g/dL (12.0-16.0); LYMPHOCYTES # (AUTO) 1.8 10^3/uL (1.5-3.5); LYMPHOCYTES % (AUTO) 33.6 %; MEAN CORPUSCULAR HEMOGLOBIN 27.5 pg (27.0-31.0); MEAN CORPUSCULAR VOLUME 83.3 fL (81.0-99.0); MEAN PLATELET VOLUME 8.8 fL (7.9-10.8); MONOCYTES # (AUTO) 0.6 10^3/uL (0.0-1.0); MONOCYTES % (AUTO) 10.7 %; NEUTROPHILS # (AUTO) 2.5 10^3/uL (1.5-6.6); NEUTROPHILS % (AUTO) 47.2 %; PLT - PLATELET COUNT 199 10^3/uL (130-450); RED BLOOD COUNT 4.31 10^6/uL (4.20-5.40); RED CELL DISTRIBUTION WIDTH 14.7 % (12.0-15.0); WHITE BLOOD COUNT 5.3 x10^3/uL (4.8-10.8)
[2018-03-13 16:28] LABS: CALCIUM 9.2 mg/dL (8.5-10.3); CREATININE 1.1 mg/dL (0.4-1.0)
== END ==
LOC: LAB.R 16:00
PROVIDERS: ATTEND Family Medicine
DX: N18.9 Chronic kidney disease, unspecified (principal); D64.9 Anemia, unspecified
CPT/HCPCS: 80048; 85025

== ENCOUNTER 2018-04-21 08:43 | Outpatient (CLI) | payer MEDICARE, MEDICAID ==
[2018-04-21 09:35] LABS: CALCIUM 8.7 mg/dL (8.5-10.3); CREATININE 1.4 mg/dL (0.4-1.0)
== END 2018-04-21 23:59 | disposition home or self-care (01) ==
LOC: LAB.R 08:43
DX: A41.9 Sepsis, unspecified organism (principal)
CPT/HCPCS: 80048

== ENCOUNTER 2018-05-05 08:00 | Outpatient (CLI) | payer MEDICARE, MEDICAID ==
[2018-05-05 11:37] LABS: BASOPHILS % (AUTO) 0.4 %; EOSINOPHILS # (AUTO) 0.2 10^3/uL (0.0-0.7); EOSINOPHILS % (AUTO) 2.6 %; HGB - HEMOGLOBIN 11.9 g/dL (12.0-16.0); LYMPHOCYTES # (AUTO) 1.4 10^3/uL (1.5-3.5); LYMPHOCYTES % (AUTO) 17.2 %; MEAN CORPUSCULAR HEMOGLOBIN 27.3 pg (27.0-31.0); MEAN CORPUSCULAR HGB CONC 33.1 g/dL (32.0-36.0); MEAN CORPUSCULAR VOLUME 82.5 fL (81.0-99.0); MONOCYTES # (AUTO) 0.6 10^3/uL (0.0-1.0); MONOCYTES % (AUTO) 6.8 %; NEUTROPHILS # (AUTO) 6.1 10^3/uL (1.5-6.6); PLT - PLATELET COUNT 194 10^3/uL (130-450); RED BLOOD COUNT 4.37 10^6/uL (4.20-5.40); RED CELL DISTRIBUTION WIDTH 13.9 % (12.0-15.0); WHITE BLOOD COUNT 8.4 x10^3/uL (4.8-10.8)
[2018-05-05 11:46] LABS: ALBUMIN 2.9 g/dL (3.2-5.5); ALBUMIN/GLOBULIN RATIO 0.7 (1.0-2.2); BILIRUBIN,TOTAL 0.5 mg/dL (0.2-1.0); CALCIUM 9.2 mg/dL (8.5-10.3); CREATININE 1.8 mg/dL (0.4-1.0); TOTAL PROTEIN 6.9 g/dL (6.7-8.2)
[2018-05-05 12:18] LABS: BILIRUBIN,URINE NEGATIVE (NEGATIVE); GLUCOSE, URINE (UA) NEGATIVE (NEGATIVE); KETONES,URINE (UA) NEGATIVE (NEGATIVE); LEUKOCYTE ESTERASE, URINE TRACE (NEGATIVE); NITRITE,URINE NEGATIVE (NEGATIVE); OCCULT BLOOD,URINE NEGATIVE (NEGATIVE); PH,URINE 5.5 PH (5.0-7.5); PROTEIN,URINE NEGATIVE (NEGATIVE); UROBILINOGEN,URINE 0.2 (NORMAL) E.U./dL (NORMAL)
[2018-05-05 12:21] LABS: CLARITY,URINE CLEAR (CLEAR)
[2018-05-05 12:38] LABS: BACTERIA,URINE Rare /HPF (None Seen); RBC,URINE 0-5 /HPF (0-5); SQUAMOUS EPITHELIAL CELL,UR NONE SEEN (<= Few); YEAST,URINE PRESENT
== END 2018-05-05 23:59 | disposition home or self-care (01) ==
LOC: LAB.R 08:00
DX: N18.9 Chronic kidney disease, unspecified (principal); D64.9 Anemia, unspecified; N39.0 Urinary tract infection, site not specified
CPT/HCPCS: 80053; 81001; 81003; 85025; 87077; 87086; 87181

== ENCOUNTER 2018-05-05 13:40 | Outpatient (CLI) | payer MEDICARE, MEDICAID ==
--- NOTE | 2018-05-05 18:52 | CONSULTATION NOTE ---
Palliative Care Follow Up - Referral Referring Provider: Dr. Lorenzo Washington Time of Visit: [id number] Referral setting: Custodial Facility Referral Reason: AMS/Chronic Pain/Goals of Care - Information Sources Records reviewed: Previous records reviewed History/Review of Systems obtained from: Patient, Caregiver (Clinical staff/MD) Exam limitations: Clinical condition (patient with mild confusion; baseline STM issues;) - History of Present Illness Update Brief HPI Update: This is a 73-year-old woman who has a very complex and long history as well as multiple comorbidities. She has presented over weekend though with increased lethargy, decreased intake, increased difficulty with swallowing, and episode of choking. She has been recently hospitalized 04/23-04/25 for right percutaneous nephrolithotomy. This is a result has had on03/02 she had a renal ultrasound that did show a large stone 3.6 x 1.4 x 1.3 cm, and was referred on to [facility] by her urologist Dr. Astrid Harrington. She actually did fairly well with this with some noted decreased discomfort, but concern for some subtle changes suggestive of possible TIA and/or mild stroke symptoms. She has had some right-sided arm weakness, has been less willing or able to get up in her wheelchair, she has some right eye drooping, she does not present today with any difficulty swallowing. She does have some altered mental status in the context of some hallucinations, continues with short-term memory issues, and had difficulty arousing her this morning. They did hold all her a.m. meds, she is coming around, has been pushed to drink 700 mils of fluid, her urine is still dark but clear. Patient's face is flushed, but her vital signs are stable. She did have some labs drawn which did show no elevated white count, though note that she often does not mount a response. She did have increased creatinine at 1.8, BUN 45, and her GFR was down to 28. Of note her fluid status was down this weekend, and could be exacerbated also by mild to moderate dehydration. On exam patient does have some mild confusion, she does seem to recognize me, though does not recall my name this is not unusual though. I had not seen her since her hospitalization in February, she noted been quite a while. We did discuss concern regarding her change in status, she is quite clear at this point in time she does not want to go to the hospital. She does have decreased breath sounds in her right lower lobe, history of choking over the weekend, currently she is not hypoxic but at some point they did put oxygen on her. She does not present with cough, though does complains of slight shortness of breath.He does appear to have some weakness in her right arm, she can spontaneously move it or reach across, but is unable to eat with it, has slight tremors, and needs assist to lift or keep elevated.Patient also presents with right eye drooping, patient does complain of vision changes, is unable to participate in a vision exam looking for field cuts. Patient often has slurred speech because of her dentition, unable to tell if this is worsened. Social History - Living Situation Living arrangement: correction Support System: Patient has lived at the shelter for several years, she does have intermittent paranoia they are going to put her out on the streets. This was somewhat revisited a couple times to her visit today. Reassured focusing on just getting her feel better. She has several daughters, though does not include them in her care, though her daughter Talat did show up at the end of the visit. She continues with intermittent estrangement from a different family members, though she would like me to contact Fatmata her daughter in [place]. Medications/Allergies - Medications Home Medications: Ambulatory Orders Medication Instructions Recorded Confirmed Aspirin Chewable [St Flavio 81 mg PO DAILY 09/29/13 05/05/18 Aspirin] diltiaZEM CD [Cardizem Cd] 240 mg PO BID 09/29/13 05/05/18 Multivitamin [Multivitamins] 1 each PO DAILY 06/06/14 05/05/18 Potassium Chloride 30 meq PO DAILY 06/06/14 05/05/18 Losartan [Cozaar] 100 mg PO DAILY 02/14/17 05/05/18 Senna [Senokot] 17.2 mg PO BID 02/14/17 05/05/18 diphenhydrAMINE [Benadryl] 25 mg PO Q6H PRN 02/14/17 05/05/18 tiZANidine [Zanaflex] 4 mg PO TID 02/14/17 05/05/18 DULoxetine [Cymbalta] 120 mg PO DAILY 02/19/17 05/05/18 Furosemide [Lasix] 40 mg PO BID 04/25/17 05/05/18 Acetaminophen 500 mg PO Q6HR PRN 10/06/17 05/05/18 Meclizine HCl [Motion Sickness 25 mg PO BID PRN 10/06/17 05/05/18 Relief] Melatonin 3 mg PO QPM 10/06/17 05/05/18 Polyethylene Glycol 3350 [Miralax] 17 gm PO BID 10/06/17 05/05/18 Pregabalin [Lyrica] 100 mg PO BID 10/06/17 05/05/18 Albuterol Sulfate [Proair Hfa 2 puffs INH QID PRN MDD four times 11/19/17 05/05/18 Inhaler] Bisacodyl [Dulcolax] 5 mg PO DAILY 12/25/17 05/05/18 Hydrocodone/Acetaminophen 1.5 tab PO TID PRN 12/25/17 05/05/18 [Hydrocodone-Acetamin 10-325 mg] Sucralfate [Carafate] 1 gm PO QID PRN 12/25/17 05/05/18 oxyCODONE [Roxicodone] 5 mg PO BID 02/13/18 05/05/18 Saccharomyces Boulardii [Florastor] 250 mg PO BID #60 capsule 02/16/18 05/05/18 Risperidone [Risperdal] 6 mg PO ACHS 05/05/18 05/05/18 oxyCODONE [Roxicodone] 5 mg PO Q4HR 05/05/18 05/05/18 - Allergies Allergies/Adverse Reactions: Allergies Allergy/AdvReac Type Severity Reaction Status Date / Time erythromycin base Allergy Severe Anaphylaxis Verified 02/12/18 23:19 [Erythromycin Base] Penicillins Allergy Severe Anaphylaxis Verified 02/12/18 23:19 Sulfa (Sulfonamide Allergy Severe Redness/High Verified 02/12/18 23:19 Antibiotics) fever lisinopril Allergy Unknown Unknown Verified 02/12/18 23:19 ceftriaxone Allergy Rash Verified 02/12/18 23:19 quinidine Allergy Rash Verified 02/12/18 23:19 Review of Systems - Constitutional Constitutional: reports: Fatigue, Poor appetite, Weight stable. denies: Fever - Eyes Eyes: reports: Vision loss (right eye; patient perceives as acute; unable to particpate field vision loss with AMS) - Ears, Nose & Throat Ears, Nose & Throat: reports: Hearing loss (mild), Dental decay, Dry mouth - Cardiovascular Cardiovascular: reports: Edema (reports RLE edema earlier in week; cannot confirm), Decr. exercise tolerance (has no been up in wheelchair much since hospitalization 04/23/-04/25). denies: Chest pain - Respiratory Respiratory: reports: SOB with exertion. denies: Cough - Gastrointestinal Gastrointestinal: reports: Other (was lethargic over weekend; decreased fluid and food intake; choking used thick it;). denies: Nausea, Reflux/heartburn - Genitourinary Genitourinary: reports: Other (suprapubic catheter) - Musculoskeletal Musculoskeletal: reports: Back pain, Stiffness, Muscle weakness, Transfer issues - Integumentary Integumentary: reports: Dryness, Other (cyst on pannus) - Neurological Neurological: reports: General weakness, Memory problems, Other (speech difficult to understand) - Psychiatric Psychiatric: reports: Hallucinations - Hematologic/Lymphatic Hematologic/Lymphatic: reports: Recurrent infections (hx of utis) - All Other Systems All Other Systems: reports: Reviewed and negative Physical Exam - Vital Signs Temperature: 97.3 C Pulse Rate: 81 Respiratory Rate: 18 O2 Saturation: 96 (on 2 liters; removed never dropped below 93 %; patient prefers off) Blood Pressure: 138/64 - Physical Exam General Appearance: positive: Lethargic (difficult to engage; by end of visit more alert but still with some confusion) Eyes Bilateral: positive: PERRL, Other (patient with right eye droop/ reports difficult vision) ENT: negative: Pharyngeal erythema Neck: positive: No JVD, Trachea midline Cardiovascular: positive: Regular rate & rhythm Respiratory: positive: Diminished in bases, Other (decreased RLL;). negative: Wheezes, Rales, Rhonchi Abdomen: positive: Non-tender, Soft, Nml bowel sounds, Obese Skin: positive: Diaphoresis (wrapped up in furry blankets; flushed in cheeks), Other (left pannus with 2 X 3 cm firm cystlike swelling; nontender) Extremities: positive: No pedal edema Neurologic/Psychiatric: positive: Disoriented to time, Weakness, Depressed mood/affect, Flat affect Palliative Care - POLST Patient has POLST: Yes POLST Status: DNR, Comfort Measures Pain: Pain improved, Location (Patient somewhat vague in her description of her pain today, because of patient's altered mental status unable to get a clear history. Denies any acute pain on examination. Her pain meds have been held this morning secondary to lethargy. She reports her right hand and arm are much better. Per review appears her abdominal back pain had improved with her surgery, unable to get a clear picture of this at this point in time. Unfortunately patient is on multiple opioids, scheduled oxycodone 5 mg 3 times daily, hydrocodone 5/325 mg 1.5 tablets which she takes 1 or 2 times a day but not on a regular basis, also has oxycodone for breakthrough pain 5 mg 1 every 4 hours as needed. She had been started on Lyrica 100 mg 3 times daily mostly for her sharp shooting phantom pain as well as her carpal tunnel, her carpal tunnel is mostly healed at this point in time. Given her lethargy will recommend decreasing to twice daily. When patient more clear will try and get a better history of her pain and simplify her narcotic schedule.) Tiredness/Fatigue: Severe (7-10) Drowsiness/Sedation: Severe (7-10) Nausea: None Dyspnea: Mild (1-3) Performance Status: Patient previous to his surgery had been up in her wheelchair for most of the day, since surgery, and concern regarding some possible residual right-sided weakness has been more bedbound. She has been increasing lethargic and unrespo nsive over the last 2-3 days, she is a total assist at this point in time to transfer her wheelchair. She has been asked to initiate therapy services after discharge from hospital, unclear where were at in that process will follow up with next visit - Palliative Care Discussion: Patient with lethargy on arrival, did after some time and stimulation was able to have a conversation with patient. Patient aware she is not doing well, does not want to return to the hospital. She does not like hospitals, just wants to be comfortable. Unclear if she is weighing benefits and burdens of whether this may have be benefit. There is no obvious acute process at this point in time identifiable, patient has had labs, decreased kidney function, but also had her meds held this morning. Did discuss in the context that she was difficult to arouse and difficult to ask questions to that we really do need a D POA identified. Patient having difficulty identifying her children, did ask we check and call Fatmata to see if she would help, we did discuss she is in [place]. But she could still make decisions for her she would like me to follow up with Fatmata and see if she could be the D POA. Daughter Talat came to visit at the end of our visit, had been here yesterday, aware was having problems, was noncommital when asked if had been in contact with siblings with updates. Patient does have a DAMASO ST that she is done with Dr. Luong 04/2017, which is a DNA R and comfort measures only. Patient has been fairly unhappy with her quality of life though she certainly fluctuates with this, on dislikes hospitals. Though of interest she has pursued several outpatient procedures including her nephrostolithotomy as well as carpal tunnel release surgery. Patient does have complex health problems, as well as mental health issues. Would be helpful to have D POA identified and enlisted in future decision making and updates. Results - Lab Results Lab results reviewed: Yes Impression and Recommendations - Palliative Care Impression: This is a 73-year-old woman who presents with altered mental status, continues with multiple comorbidities, and due to multiple complex fractures has difficulty defining her goals of care. She is often fluctuating and what is most important to her, though today she is quite clear she does not want to go the hospital. Palliative care to continue to provide support and clarification of goals. Recommendations/Counseling Done: 1. Altered mental status. This appears to be multifactorial in origin. She has had her meds held today, does sound like she has had changes over the weekend, including contributing to her current status of concern is dehydration, possible TIA/residual stroke symptoms unclear of timeline, patient with recent surgery 04/22 and off aspirin. Patient is rallying some, able to engage in conversation, has been drinking this morning as well as eating Armenian fries and cheese sandwich at my visit. Patient also has decreased right breath sounds, certainly is at high risk given history of the weekend and bedbound status for pneumonia. Consult with Dr. Washington, will order chest x-ray to rule out underlying concern. 2. Chronic kidney disease stage III. Consults with Dr. Washington, PCP, will hold furosemide until patient back to baseline, eating and drinking again. Would follow-up with labs in 1 week, and evaluate for signs or symptoms of fluid overload if patient improves. 3. Chronic pain syndrome. Patient with several interventions to improve her pain, unclear her underlying baseline pain at this point in time. Given her con fusion and decreased kidney status, would go ahead and decrease Lyrica to 100 mg twice daily from 3 times daily, see if this impacts her lethargy. When patient more clear will do a more thorough pain assessment, and streamlined narcotics would be my recommendation. Patient this point in time really unable to give clear history nor adequate description of her current pain status since surgery. 4. Advanced care planning. Message left to follow-up with daughter Fatmata, will follow up with update and evaluate if able to take on the role of D POA, as well as get some family history. This is the first time she has allowed me to contact family members, and have further conversation regarding this. Unfortunately this point in time decision making would need to include all 3 daughters, patient unclear pain no there is Karolina in [place] [phone], Kira on [place] [phone], Talat who I ran into, and she mentioned a Nena, unclear if this is yet another daughter, as she said she had one that is . Gets somewhat more vague and confused when trying to further clarify this. Patient does have a DAMASO ST, that does state DNA R and comfort measures, patient dislikes hospitalization, and has often seen quality of life as somewhat marginal, but has enjoyed it as long as she has been independent and up in her wheelchair. We will continue to explore these themes as looking at what emerges over the next couple days as far as her baseline status. CC Karina. Time Spent: 60 minutes with getting 50% of this done in counseling regarding goals of care, follow-up and D POA, evaluating Current status and consulting with recommendations to SNF director/PCP.
== END 2018-05-05 13:41 | disposition home or self-care (01) ==
LOC: PC 13:40
PROVIDERS: ATTEND Nurse Practitioner Adult Health
DX: Z51.5 Encounter for palliative care (principal); R53.83 Other fatigue; R53.1 Weakness; R41.3 Other amnesia; R41.0 Disorientation, unspecified; R06.02 Shortness of breath; N18.3 Chronic kidney disease, stage 3 (moderate); G54.6 Phantom limb syndrome with pain; F20.9 Schizophrenia, unspecified; Z87.442 Personal history of urinary calculi; Z96.0 Presence of urogenital implants; Z87.440 Personal history of urinary (tract) infections; Z66 Do not resuscitate; Z74.01 Bed confinement status; Z79.891 Long term (current) use of opiate analgesic; Z79.899 Other long term (current) drug therapy
CPT/HCPCS: 99310

== ENCOUNTER 2018-05-10 10:30 | Outpatient (CLI) | payer MEDICARE, MEDICAID ==
--- NOTE | 2018-05-10 13:32 | CONSULTATION NOTE ---
Palliative Care Follow Up - Referral Referring Provider: Dr. Lorenzo Washington Time of Visit: 2753-8441 Referral setting: Shelter Facility Referral Reason: AMS/Stage II decub buttocks/UTI - Information Sources Records reviewed: RN notes reviewed, Previous records reviewed History/Review of Systems obtained from: Patient, Caregiver (Clinical staff) Exam limitations: Clinical condition (patient slow to respond, though is more engaged and awake than last visit; poor STM and recall of events) - History of Present Illness Update Brief HPI Update: This is a 73-year-old woman who has a very complex and long history as well as multiple comorbidities. She had presented with increased lethargy, decreased intake, increased difficulty with swallowing and bedbound status over the weekend. Her most recent hospitalization was 04/23-04/25 at [facility] for a right percutaneious nephrolithotomy. Labs were drawn with some worsening of her kidney status of creatinine 1.8 and GFR 28, she did not have an elevated white count, and only slightly anemic at the hemoglobin of 11.9. She did have a positive urine, no bacteria count 25-50,000, but was positive for ESBL so Levaquin was started at reduced dosing secondary to her renal function at 750 mg every other day for 3 doses. We also decreased her oxycodone 5 mg 3 times daily to twice daily, decreased her Lyrica 100 mg 3 times daily to twice daily, as well as held her furosemide and potassium given her decreased intake. Her blood pressures remained in her fair range, she was with mild temperature on 03/07 of 99 2, she has had fluctuating status with continued lethargy, though does seem somewhat improved today. What is been a big change, she has been bedbound, has not been up, they are having to help feed her, and needs assistance with fluids. Patient off of oxygen, sats at 94%, unclear why on oxygen at this point, denies shortness of breath, lungs clear, no cough. Today I find patient able to answer my questions, has very little insight or poor recall of the last few days. She is unable to explain her weakness or lethargy. She did present on 05/08 first noted with some right hand and arm swelling, warm to touch, and was elevated,. Today on examination she does have an area of tenderness over the back of her right hand, slight swelling in her wrist, slightly warm to touch, but does appear less than what was previously described. Patient does have limited head porter strength, she attributes this to pain, as well as decreased strength overall in her right arm. She has lost initiation as far as being able to feed herself, is unable to reach she is right-handed. She reports low-grade nausea, anorexia, no increase in pain but has been mostly in bed. I suspect at this point in time she would be a total Ivana lift. In follow-up she has not received PT/OT ordered on 04/30 post hospitalization. She also presents with a stage II decub on her right buttock, 2 x 3 cm, shallow. She also was incontinent of liquid stool during my visit as well. She does have a suprapubic, the urine is darin. She is on contact precautions. Social History - Living Situation Living arrangement: [facility] Medications/Allergies - Medications Home Medications: Ambulatory Orders Medication Instructions Recorded Confirmed Aspirin Chewable [St Flavio 81 mg PO DAILY 09/29/13 05/10/18 Aspirin] diltiaZEM CD [Cardizem Cd] 240 mg PO BID 09/29/13 05/10/18 Multivitamin [Multivitamins] 1 each PO DAILY 06/06/14 05/10/18 Potassium Chloride 30 meq PO .HOLD 06/06/14 05/10/18 Losartan [Cozaar] 100 mg PO DAILY 02/14/17 05/10/18 Senna [Senokot] 17.2 mg PO . HOLD 3 DAYS BID 02/14/17 05/10/18 diphenhydrAMINE [Benadryl] 25 mg PO Q6H PRN 02/14/17 05/10/18 tiZANidine [Zanaflex] 4 mg PO BID 02/14/17 05/10/18 DULoxetine [Cymbalta] 120 mg PO DAILY 02/19/17 05/10/18 Furosemide [Lasix] 40 mg PO . HOLD BID 04/25/17 05/10/18 Acetaminophen 500 mg PO Q6HR PRN 10/06/17 05/10/18 Meclizine HCl [Motion Sickness 25 mg PO BID PRN 10/06/17 05/10/18 Relief] Melatonin 3 mg PO QPM 10/06/17 05/10/18 Polyethylene Glycol 3350 [Miralax] 17 gm PO . HOLD BID FOR 3 DAY 10/06/17 05/10/18 Pregabalin [Lyrica] 100 mg PO BID 10/06/17 05/10/18 Albuterol Sulfate [Proair Hfa 2 puffs INH QID PRN MDD four times 11/19/17 05/10/18 Inhaler] Hydrocodone/Acetaminophen 1.5 tab PO TID PRN 12/25/17 05/10/18 [Hydrocodone-Acetamin 10-325 mg] Sucralfate [Carafate] 1 gm PO QID PRN 12/25/17 05/10/18 oxyCODONE [Roxicodone] 5 mg PO BID 02/13/18 05/10/18 Saccharomyces Boulardii [Florastor] 250 mg PO BID #60 capsule 02/16/18 05/10/18 Risperidone [Risperdal] 6 mg PO ACHS 05/05/18 05/10/18 oxyCODONE [Roxicodone] 5 mg PO Q4HR 05/05/18 05/10/18 Levofloxacin [Levaquin] 750 mg PO .Q48 HOURS MDD 3 doses 05/10/18 05/10/18 - Allergies Allergies/Adverse Reactions: Allergies Allergy/AdvReac Type Severity Reaction Status Date / Time erythromycin base Allergy Severe Anaphylaxis Verified 02/12/18 23:19 [Erythromycin Base] Penicillins Allergy Severe Anaphylaxis Verified 02/12/18 23:19 Sulfa (Sulfonamide Allergy Severe Redness/High Verified 02/12/18 23:19 Antibiotics) fever lisinopril Allergy Unknown Unknown Verified 02/12/18 23:19 ceftriaxone Allergy Rash Verified 02/12/18 23:19 quinidine Allergy Rash Verified 02/12/18 23:19 Review of Systems - Constitutional Constitutional: reports: Fatigue, Fever (05/07 99.2 none since), Poor appetite. denies: Chills - Eyes Eyes: reports: Vision loss - Ears, Nose & Throat Ears, Nose & Throat: reports: Dry mouth - Respiratory Respiratory: reports: SOB with exertion. denies: Cough, SOB at rest - Gastrointestinal Gastrointestinal: reports: Diarrhea (had reported constipation; loose stool during visit large amount liquid light brown), Nausea (reports constant unable to quantify time), Poor appetite, Early satiety. denies: Vomiting, Reflux/heartburn - Genitourinary Genitourinary: reports: Other (suprapubic) - Musculoskeletal Musculoskeletal: reports: Limited range of motion (difficulty wtih right hand/pain weakness; not feeding self), Muscle weakness, Joint pain (right knee; difficult straightening), Other (has been bedbound since hospitalization) - Integumentary Integumentary: reports: Other (c/o pain in buttocks area) - Neurological Neurological: reports: General weakness, Headache (c/o early to nurse; denies at time of visit), Memory problems, Slurred speech, Other (lethargy improved over prior visit) - Endocrine Endocrine: reports: Diabetes type 2 - Hematologic/Lymphatic Hematologic/Lymphatic: reports: Recurrent infections (UTI/s) - All Other Systems All Other Systems: reports: Other (limited ROS with patient's memory) Physical Exam - Physical Exam General Appearance: positive: No acute distress, Lethargic (but more awake by end of visit; less than last week) Eyes Bilateral: positive: Normal inspection ENT: positive: Dry mucous membranes Neck: positive: No JVD, Trachea midline Cardiovascular: positive: Regular rate & rhythm Respiratory: positive: Diminished in bases. negative: Wheezes, Rales, Rhonchi Abdomen: positive: Non-tender, Soft, Nml bowel sounds, Obese Skin: positive: Pallor, Dryness, Pressure wound (Stage II on buttocks; open shallow 1 cm surrounded by shearing injury 2 x 3 cm on right; left Stage I 2 x 3 cm area ; laying on wadded furry blanket; bed foot elevation broken adding to pressure points) Extremities: positive: No pedal edema Neurologic/Psychiatric: positive: Disoriented to time Palliative Care - POLST Patient has POLST: Yes POLST Status: DNR, Comfort Measures Pain: Comment (patient unable to really describe current pain; right hand tender when manipulated; discomfort with back with current bed position; acute pain "tailbone"; no mention of spasms/phantom pain) Tiredness/Fatigue: Moderate (4-6) Drowsiness/Sedation: Moderate (4-6) Nausea: Moderate (4-6) Depression: Mild (1-3) Anxiety: Mild (1-3) Dyspnea: None Anorexia: Severe (7-10) Feelings of wellbeing/Perceived Quality of Life: Comment (unable to really comme nt on current situation or concerns; "doesn't feel good" but not worried) Performance Status: patient has mostly been bedbound since hospitalization a couple of weeks ago; un able to bear weight to assist with transfers; has not been up in ivana lift; now on precautions; contacted rehab regarding order - Palliative Care Discussion: Patient does not have a designated DPOA as had various degrees of estrangement with daughters. She asked I speak with [facility] in [place], have left two messages without response, the RN notes reports "daughters" were in over the weekend, and there is documented contact with local daughter. Patient has POLST as DNAR/Comfort measures from 01/2017 and this has stood through various conversations. Patient has been quite clear does not want to return to the hospital at this time, unclear at this time was is the acute illness that is involved vs her chronic. Patient denies distress or worry over current situation, and is feeling somewhat better. Unclear how much of the medical information regarding her current status/treatment she is able to understand at any depth. Does have some insight she is declining, and is okay with this. Results - Lab Results Lab results reviewed: Yes Impression and Recommendations - Palliative Care Impression: This is a 73-year-old woman with a complex history of multiple comorbidities, presenting with increased lethargy, altered mental status, and positive urine with EBS Kleb pneumonia. She has been started on Levaquin 750 mg every other day secondary to poor creatinine clearance. Her chest x-ray is negative, and no further hypoxia. She has had some improvement, also have decreased her Lyrica, and oxycodone to see if this would help lighten her drowsiness. Patient does not want to return to hospital, palliative care providing support with goal to have patient back to baseline. Though given her current condition, she is at risk for further decline Recommendations/Counseling Done: 1. UTI. Unknown if decreased the lethargy is as a result of decreased medications including her Lyrica and oxycodone, or response to her antibiotic. Given patient also now presents with concern for cellulitis on her right hand, will finish out third dose which will give her about 8-9 days of coverage. 2. Diarrhea. Suspect likelihood related to her antibiotic use, will hold her bowel meds, as constipation is usually a significant symptom for her. Order written to hold for 3 days. 3. Anorexia. This is most likely multifactorial in origin, patient reports vague low-grade nausea, no vomiting. She is needing to be fed, this is a significant change in her status. I did assist her with fluids, did not see any signs or symptoms of choking, but will benefit from formal evaluation from speech therapy. 4. Generalized weakness. This appears to have continued not only as a result of her current acute issues, but also post hospitalization. Follow-up with rehab to have physical therapy and occupational therapy evaluate, concern for possible TIA/mild stroke on right side. Will await their evaluation as well. Patient has been unable to transfer secondary to her weakness, she most likely will need Ivana lift, staff will need further instruction on best how to manage this. Patient does need to be out of bed with pressure relief as well as concern for ongoing deconditioning. Contact with rehab staff for follow-up. 5. Stage II decub right buttock. This appears to be a combination of pressure and sharing, patient's bed is not working, stuck in significant angle downward with increased pressure on her back and buttocks. Instructed to use barrier cream at this point in time, to protect and assist with healing. 6. Right hand cellulitis. Per description from over the weekend, hand is improving, unclear if old IV site, is couple weeks out from surgery as well as couple months out from her carpal tunnel surgery. We will continue to monitor for improvement or deterioration. 7. CKD stage III. Patient's furosemide and potassium currently on hold, no signs or symptoms of fluid overload, hypertension, continued concern regarding kidney status. Will have BMP drawn on in follow up. Need to encourage and assist with fluid intake, patient unable to initiate or manage on own. Given 500 mls fluid during visit. 8. Advanced care planning. Patient does show some improvement, she does have a DAMASO ST with focus on comfort and DNA R. Patient continues to express feelings of not returning to hospital, showing some improvement, unclear patient understands her current medical condition but is aware she is been sick. She is showing some improvement. 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
== END 2018-05-10 10:31 | disposition home or self-care (01) ==
LOC: PC 10:30
PROVIDERS: ATTEND Nurse Practitioner Adult Health
DX: Z51.5 Encounter for palliative care (principal); N39.0 Urinary tract infection, site not specified; B96.1 Klebsiella pneumoniae [K. pneumoniae] as the cause of diseases classified elsewhere; R19.7 Diarrhea, unspecified; R63.0 Anorexia; R11.2 Nausea with vomiting, unspecified; R53.1 Weakness; L89.312 Pressure ulcer of right buttock, stage 2; L03.113 Cellulitis of right upper limb; L89.321 Pressure ulcer of left buttock, stage 1; E11.22 Type 2 diabetes mellitus with diabetic chronic kidney disease; N18.3 Chronic kidney disease, stage 3 (moderate); D64.9 Anemia, unspecified; R15.9 Full incontinence of feces; G54.6 Phantom limb syndrome with pain; F20.9 Schizophrenia, unspecified; Z66 Do not resuscitate; Z96.0 Presence of urogenital implants; Z79.899 Other long term (current) drug therapy; Z87.442 Personal history of urinary calculi; Z16.12 Extended spectrum beta lactamase (ESBL) resistance; Z79.891 Long term (current) use of opiate analgesic; Z74.01 Bed confinement status
CPT/HCPCS: 99310

== ENCOUNTER 2018-05-13 14:50 | Outpatient (CLI) | payer MEDICARE, MEDICAID | END 2018-05-13 23:59 | disposition home or self-care (01) | LOC: LAB.R 14:50 | DX: A04.71 Enterocolitis due to Clostridium difficile, recurrent (principal) | CPT/HCPCS: 87493 ==

== ENCOUNTER 2018-05-14 10:30 | Outpatient (CLI) | payer MEDICARE, MEDICAID ==
[2018-05-14 11:24] LABS: CALCIUM 9.4 mg/dL (8.5-10.3); CREATININE 0.7 mg/dL (0.4-1.0)
== END 2018-05-14 23:59 | disposition home or self-care (01) ==
LOC: LAB.R 10:30
DX: N18.9 Chronic kidney disease, unspecified (principal)
CPT/HCPCS: 80048

== ENCOUNTER 2018-05-21 08:00 | Outpatient (CLI) | payer MEDICARE, MEDICAID ==
[2018-05-22 00:32] LABS: BASOPHILS % (AUTO) 0.6 %; EOSINOPHILS # (AUTO) 0.3 10^3/uL (0.0-0.7); EOSINOPHILS % (AUTO) 4.4 %; HGB - HEMOGLOBIN 11.5 g/dL (12.0-16.0); LYMPHOCYTES # (AUTO) 2.2 10^3/uL (1.5-3.5); LYMPHOCYTES % (AUTO) 29.7 %; MEAN CORPUSCULAR HEMOGLOBIN 27.2 pg (27.0-31.0); MEAN CORPUSCULAR HGB CONC 33.5 g/dL (32.0-36.0); MEAN CORPUSCULAR VOLUME 81.2 fL (81.0-99.0); MONOCYTES # (AUTO) 0.6 10^3/uL (0.0-1.0); NEUTROPHILS # (AUTO) 4.3 10^3/uL (1.5-6.6); NEUTROPHILS % (AUTO) 57.3 %; PLT - PLATELET COUNT 325 10^3/uL (130-450); RED BLOOD COUNT 4.24 10^6/uL (4.20-5.40); RED CELL DISTRIBUTION WIDTH 13.7 % (12.0-15.0); WHITE BLOOD COUNT 7.4 x10^3/uL (4.8-10.8)
[2018-05-22 00:40] LABS: ALBUMIN 2.6 g/dL (3.2-5.5); ALBUMIN/GLOBULIN RATIO 0.6 (1.0-2.2); BILIRUBIN,TOTAL 0.4 mg/dL (0.2-1.0); CALCIUM 9.2 mg/dL (8.5-10.3); CREATININE 0.7 mg/dL (0.4-1.0); TOTAL PROTEIN 6.8 g/dL (6.7-8.2)
== END 2018-05-21 23:59 ==
LOC: LAB.R 08:00
DX: A41.9 Sepsis, unspecified organism (principal); N17.9 Acute kidney failure, unspecified; G93.41 Metabolic encephalopathy
CPT/HCPCS: 80053; 85025

== ENCOUNTER 2018-05-24 12:50 | Outpatient (CLI) | payer MEDICARE, MEDICAID ==
--- NOTE | 2018-05-25 14:24 | Ultrasound Report ---
Reason: KIDNEY STONE,HYDRONEPHROSIS,UNSPECIFIED HYDRONEPHR Procedure Date: 05/24/2018 Accession Number: [id number] / [id number] Procedure: US - Retroperitoneal CPT Code: FULL RESULT: EXAM: RENAL ULTRASOUND EXAM DATE: 05/24/2018 01:51 PM. CLINICAL HISTORY: KIDNEY Stone, hydronephrosis, COMPARISON: 07/16/[address] 08/12/2017 TECHNIQUE: Real-time scanning was performed with static images obtained. FINDINGS: Technically limited examination due to patient's body habitus and ability to cooperate. Right Kidney: 8.5 x 4.1 x 3.7 cm. Slightly irregular contours as previously demonstrated on CT of 08/12/2017. Echogenic focus upper pole 2.3 x 1.4 x 1.6 cm similar to previous. No hydronephrosis or obvious stone seen at this time. Left Kidney: 8.3 x 4.1 x 5.4 cm. Slightly irregular contours as before. Otherwise unremarkable echotexture with no stones, or hydronephrosis. Bladder: Decompressed by Reyes catheter IMPRESSION: Limited renal ultrasound. Reyes catheter in place. No evidence of obstruction at this time. No shadowing stones seen. [facility]
== END 2018-05-24 12:51 | disposition home or self-care (01) ==
LOC: DI 12:50
PROVIDERS: ATTEND Urology
DX: N20.0 Calculus of kidney (principal); N13.30 Unspecified hydronephrosis
CPT/HCPCS: 76770

== ENCOUNTER 2018-05-25 10:45 | Outpatient (CLI) | payer MEDICARE, MEDICAID ==
--- NOTE | 2018-05-25 17:05 | CONSULTATION NOTE ---
Palliative Care Follow Up - Referral Referring Provider: Dr. Lorenzo Washington Time of Visit: [id number] [facility] Referral Reason: Acute on Chronic Pain/DTI right inner heel/Staged II decub buttocks - Information Sources Records reviewed: Previous records reviewed History/Review of Systems obtained from: Patient, Caregiver (clinical staff) Exam limitations: Clinical condition (patient with poor STM;) - History of Present Illness Update Brief HPI Update: This is a 73-year-old woman who has a very complex and long history of multiple comorbidities as well as underlying mental health issues. She recently presented with increased lethargy, decreased intake, increased difficulty with swallowing and bedbound status after her recent hospitalization on 04/23-04/25 at [facility] for right percutaneous nephrolithotomy. She was having worsening kidney status, and showed a positive urine though bacteria count was 25-50,000, it was positive for ESBL and was treated with Levaquin 750 mg every other day for 3 doses. Because of her altered mental status and ongoing decreased intake, her Lyrica, tenacity in, and oxycodone were decreased as well as her Lasix and potassium put on hold. There was concern that she possibly had a TIA, or residual right stroke, she remains quite deconditioned, and continues with some right hand swelling in her wrist, she is now able to self feed again though remains tender to palpation. Her lethargy has improved, but she is still now mostly bedbound, she is able to engage in conversation but still seems more flat than usual. Today patient presents with DTI on inner right heel of 3 x 2 cm, according to staff this is actually improved was right red and swollen and now is dark purple drying eschar. She does have pedal edema 1+ to knees, scattered petechiae over her outer right lower extremity, and significant pain with any kind of palpation and movement of her right leg. Patient does attribute this, and most likely appropriately, she had gone to diagnostic imaging yesterday and was having difficulty cooperating or moving her extremities and laying flat on the table was "excruciating". She has started with PT/OT, she continues with her stage II decub on her right buttock 2 x 3 cm, slightly moist. She did have liquid stool, but now is come complaining of constipation. Patient's past medical history of long list of comorbidities include but not limited to schizophrenia, depression, asthma, hypertension, peripheral neuropathy, status post left [id number] amputation, osteoarthritis, phantom limb pain, venous stasis in her right leg, CKD stage IV, failed back syndrome, kidney stones, suprapubic catheter. Social History - Living Situation Living arrangement: [facility] ([facility], [facility] now for 5[facility]6 years.) Support System: Patient reports she has been visited by her daughters, she reports "try to stay in a good mood", reports she can "take it or leave it". Unable to recall R expand on any conversations or support she has received. Unfortunately she is not able currently to go to her counseling appointments, but reports her community outreach person has been coming on Wednesdays and she is enjoyed those visits. Medications/Allergies - Medications Home Medications: Ambulatory Orders Medication Instructions Recorded Confirmed Aspirin Chewable [St Flavio 81 mg PO DAILY 09/29/13 05/25/18 Aspirin] diltiaZEM CD [Cardizem Cd] 240 mg PO BID 09/29/13 05/25/18 Multivitamin [Multivitamins] 1 each PO DAILY 06/06/14 05/25/18 Potassium Chloride 10 meq PO DAILY 06/06/14 05/25/18 Losartan [Cozaar] 100 mg PO DAILY 02/14/17 05/25/18 Senna [Senokot] 17.2 mg PO BID 02/14/17 05/25/18 diphenhydrAMINE [Benadryl] 25 mg PO Q6H PRN 02/14/17 05/25/18 tiZANidine [Zanaflex] 4 mg PO BID 02/14/17 05/25/18 DULoxetine [Cymbalta] 120 mg PO DAILY 02/19/17 05/25/18 Furosemide [Lasix] 20 mg PO DAILY 04/25/17 05/25/18 Acetaminophen 500 mg PO Q6HR PRN 10/06/17 05/25/18 Meclizine HCl [Motion Sickness 25 mg PO BID PRN 10/06/17 05/25/18 Relief] Melatonin 3 mg PO QPM 10/06/17 05/25/18 Polyethylene Glycol 3350 [Miralax] 17 gm PO BID 10/06/17 05/25/18 Pregabalin [Lyrica] 100 mg PO BID 10/06/17 05/25/18 Albuterol Sulfate [Proair Hfa 2 puffs INH QID PRN MDD four times 11/19/17 05/25/18 Inhaler] Hydrocodone/Acetaminophen 1.5 tab PO TID PRN 12/25/17 05/25/18 [Hydrocodone-Acetamin 10-325 mg] Sucralfate [Carafate] 1 gm PO QID PRN 12/25/17 05/10/18 oxyCODONE [Roxicodone] 5 mg PO BID 02/13/18 05/25/18 Saccharomyces Boulardii [Florastor] 250 mg PO BID #60 capsule 02/16/18 05/25/18 Risperidone [Risperdal] 6 mg PO ACHS 05/05/18 05/25/18 oxyCODONE [Roxicodone] 5 mg PO Q4HR 05/05/18 05/25/18 - Allergies Allergies/Adverse Reactions: Allergies Allergy/AdvReac Type Severity Reaction Status Date / Time erythromycin base Allergy Severe Anaphylaxis Verified 02/12/18 23:19 [Erythromycin Base] Penicillins Allergy Severe Anaphylaxis Verified 02/12/18 23:19 Sulfa (Sulfonamide Allergy Severe Redness/High Verified 02/12/18 23:19 Antibiotics) fever lisinopril Allergy Unknown Unknown Verified 02/12/18 23:19 ceftriaxone Allergy Rash Verified 02/12/18 23:19 quinidine Allergy Rash Verified 02/12/18 23:19 Review of Systems - Constitutional Constitutional: reports: Fatigue, Weakness, Weight loss (started [employer] earlier this month for weight loss; 176.6 05/24; 05/12 180.2; 11/26/2017 198.6). denies: Fever, Chills - Eyes Eyes: reports: Vision loss, Corrective lenses - Ears, Nose & Throat Ears, Nose & Throat: reports: Postnasal drainage, Dental decay, Dry mouth - Cardiovascular Cardiovascular: reports: Edema (RLL), Decr. exercise tolerance. denies: Chest pain - Respiratory Respiratory: reports: SOB with exertion. denies: SOB at rest - Gastrointestinal Gastrointestinal: reports: Constipation (patient had diarrhea with neg C diff; back on bowel medications reports "constipation"), Early satiety. denies: Nausea, Reflux/heartburn - Genitourinary Genitourinary: reports: Other (suprapubic catheter; urine clear yellow) - Musculoskeletal Musculoskeletal: reports: Back pain (laying crooked in bed; unable to reposition independently at current level of weakness), Stiffness, Limited range of motion, Muscle weakness, Joint swelling (right wrist continues with mild swelling and tenderness; increased ROM from last visit; is self feeding and using) - Integumentary Integumentary: reports: Other (new DTI right heel) - Neurological Neurological: reports: General weakness, Memory problems, Slurred speech - Psychiatric Psychiatric: reports: Depression, Anxiety - Endocrine Endocrine: reports: Diabetes type 2 - Hematologic/Lymphatic Hematologic/Lymphatic: reports: Anemia, Recurrent infections (utis) - All Other Systems All Other Systems: reports: Other (limited with patient's recall) Physical Exam - Vital Signs Temperature: 97.1 C Pulse Rate: 65 Respiratory Rate: 18 O2 Saturation: 95 ( ra @ rest) Blood Pressure: 118/64 - Physical Exam General Appearance: positive: Mild distress (related to back pain/positioning), Lethargic (more able to engage those still somewhat slower than baseline;) Eyes Bilateral: positive: Normal inspection ENT: positive: No signs of dehydration Neck: positive: No JVD, Trachea midline Cardiovascular: positive: Regular rate & rhythm Respiratory: positive: Diminished in bases. negative: Wheezes, Rales, Rhonchi Abdomen: positive: Soft, Nml bowel sounds, Obese Skin: positive: Pallor, Dryness, Pressure wound (see hpi) Extremities: positive: Pedal edema Neurologic/Psychiatric: positive: Disoriented to time, Weakness, Slurred/abnml speech, Depressed mood/affect, Flat affect Palliative Care - POLST Patient has POLST: Yes POLST Status: DNR, Comfort Measures Pain: Location (Patient complaining of pain mostly in her right leg, this with movement or touch. Patient currently on decreased doses of her pain medications, Lyrica was decreased in response to her lethargy and kidney function, she is at 100 mg twice daily, oxycodone 1 5 mg tab twice daily, tizanidine 4 mg twice daily. Patient is using breakthrough pain medication either oxycodone 5 mg or hydrocodone 1-1/2 tabs not even daily, though some days does have 2 doses. Patient reports pain is quite severe today, unable to recall reflect back previously. Will need to continue to observe. Patient's pain generators are often with transfers, weightbearing, and sitting for long periods of time. Currently she is mostly bedbound) Tiredness/Fatigue: Moderate (4-6) Drowsiness/Sedation: Moderate (4-6) Nausea: None Depression: Moderate (4-6) Anxiety: Moderate (4-6) Dyspnea: Mild (1-3) Anorexia: Mild (1-3) Sleep: Variable sleep pattern Constipation: Yes, Opoid induced, Intermittent constipation Feelings of wellbeing/Perceived Quality of Life: Poor, Worsening Performance Status: Patient's baseline prior to hospitalization, patient does spend most of her time up in a wheelchair and in her room. She was able to go out to appointments. She can no longer transfer herself or weight-bear, she is working with physical therapy, though it does appear to be demonstrating functional decline.Patient is dependent now for lorena-care, had manage this at some level previously by herself independently. She does depend on staff for bathing. - Palliative Care Discussion: Patient does have some recall over the last several weeks, particularly in her acute episode. She reports "I thought I was gone". When asked if she is afraid of dying she says "I do not think soI am afraid it is going to hurt real bad". She continues to demonstrate some intermittent paranoia, and distress and dislike with staff, reports she did not say a word for 3 days because she did not like some line of questioning. She is somewhat inconsistent in her recall and in providing answers. She does feel like she is more depressed, she reports more tearfulness, and feels like she does not care much about anything right now. She does admit to feeling somewhat overwhelmed, and that things overall are more difficult. Results - Lab Results Lab results reviewed: Yes Lab and Imaging Results: Labs drawn 111 show patient still with hemoglobin 11.5, hematocrit 34.5%. White count normal at 7.4. Patient's potassium is 3.6, BUN continues to improve at 13, creatinine 0.7, and GFR 82. Her glucose remains only slightly elevated at 128. Impression and Recommendations - Palliative Care Impression: This is a 73-year-old woman who presents with both functional and cognitive decline, has been treated for ESBL Kleb pneumonia in her urine. Her lethargy has improved, unclear if this is infection related or titration back on her multiple medications. Her kidney function is improved with a discontinuation of furosemide, but do need to restart secondary lower extremity edema. Will start at low dose. Patient with fairly high symptom burden, complicated by patient's underlying mental health issues. Palliative care providing support with focus on quality of life issues. Recommendations/Counseling Done: 1. DTI right heel. Though this is showing some improvement, patient most likely will be at high risk for recurrent skin issues secondary to her increased bedbound status and multiple risk factors. Staff will be floating heel, order for specialty mattress done. 2. Stage II decub buttocks. Patient shows little improvement, patient unable to reposition herself. Hopefully with rehab therapies, can work on bed mobility as well, she does have a trapeze. 3. Lower right extremity swelling. This is most likely adding to her risk of skin breakdown, will restart furosemide gently at 20 mg with 10 mEq of K. This was in collaboration with her PCP. 4. Generalized weakness. This appears to have continued, is working with PT/OT. Patient reports she is no longer able to bear weight, this is going to limit her ability to be up her independent. 5. CKD stage III. Patient's labs do show some improvement, will need to follow-up in a few weeks with reinitiation of furosemide/potassium. Continue to encourage fluid intake, also for prevention of UTIs. 6. Anorexia. Patient is getting med Pass, continues with weight loss, patient denies any further nausea. Reports just not interested in food. We will continue to monitor. 7. Depression. Patient does present with increased depressive symptoms, she does express feelings of grief and loss with her diminished independence. She has not been able to access her ongoing support through counseling, will follow up with palliative care bereavement program coordinator to visit patient as well. Time Spent: 50 minutes with greater than 50% of this done in counseling regarding symptoms, coordination of care with staff, and anticipatory guidance
== END 2018-05-25 10:46 | disposition home or self-care (01) ==
LOC: PC 10:45
PROVIDERS: ATTEND Nurse Practitioner Adult Health
DX: Z51.5 Encounter for palliative care (principal); G89.29 Other chronic pain; G54.6 Phantom limb syndrome with pain; F20.9 Schizophrenia, unspecified; L89.302 Pressure ulcer of unspecified buttock, stage 2; S90.31XA Contusion of right foot, initial encounter; R63.0 Anorexia; F32.9 Major depressive disorder, single episode, unspecified; Z74.01 Bed confinement status; J45.909 Unspecified asthma, uncomplicated; G62.9 Polyneuropathy, unspecified; Z89.612 Acquired absence of left leg above knee; M19.90 Unspecified osteoarthritis, unspecified site; I87.8 Other specified disorders of veins; I12.9 Hypertensive chronic kidney disease with stage 1 through stage 4 chronic kidney disease, or unspecified chronic kidney disease; E11.22 Type 2 diabetes mellitus with diabetic chronic kidney disease; N18.4 Chronic kidney disease, stage 4 (severe); Z93.51 Cutaneous-vesicostomy status; H54.7 Unspecified visual loss; Z66 Do not resuscitate; Z79.82 Long term (current) use of aspirin; Z79.51 Long term (current) use of inhaled steroids; Z79.891 Long term (current) use of opiate analgesic; Z87.440 Personal history of urinary (tract) infections; Z87.442 Personal history of urinary calculi
CPT/HCPCS: 99310

== ENCOUNTER 2018-07-09 08:00 | Outpatient (CLI) | payer MEDICARE, MEDICAID ==
[2018-07-09 02:10] LABS: CALCIUM 9.2 mg/dL (8.5-10.3); CREATININE 0.9 mg/dL (0.4-1.0)
== END 2018-07-09 23:59 | disposition home or self-care (01) ==
LOC: LAB.R 08:00
DX: R60.9 Edema, unspecified (principal)
CPT/HCPCS: 80048

== ENCOUNTER 2018-07-13 08:00 | Outpatient (CLI) | payer MEDICARE, MEDICAID | END 2018-07-13 23:59 | disposition home or self-care (01) | LOC: LAB.R 08:00 | DX: Z11.59 Encounter for screening for other viral diseases (principal) | CPT/HCPCS: 87275; 87276 ==

== ENCOUNTER 2018-07-14 10:25 | Outpatient (CLI) | payer MEDICARE, MEDICAID ==
--- NOTE | 2018-07-14 21:20 | CONSULTATION NOTE ---
Palliative Care Follow Up - Referral Referring Provider: Dr. Lorenzo Washington Time of Visit: 1025-11:55 Referral setting: [facility] Facility Referral Reason: Lethargy/Chronic Pain/Depression - Information Sources Records reviewed: Previous records reviewed History/Review of Systems obtained from: Patient, Caregiver (clinical staff) Exam limitations: Clinical condition (patient with STM deficits) - History of Present Illness Update Brief HPI Update: This is a 73-year-old woman has a very complex and long history of multiple comorbidities as well as underlying mental health issues. I was asked to follow-up regarding she had presented with increased lethargy, she was tested for influenza A and was negative. Patient's lethargy appears to be worse in the a.m., she is continued to be more bedbound, though she was up a couple days ago. She is much more dependent on staff for transfers, previously had been independent in her room. In May there is possible ability that she had a TIA or residual right sided stroke, And with her lethargy at that point in time her medications were decreased. As well as concern for worsening kidney function, her Lasix and potassium were put on hold. She was since restarted on Lasix at 20 mg, her kidney function on 07/09 has worsened her BUN is 45 up from 13 on 111, creatinine 0.9 and GFR 61. Staff observation is patient is most lethargic and difficult to arouse in the a.m., and review of her records, she often takes her breakthrough dosing of hydrocodone Mg/325 acetaminophen 1-1/2 tabs at bedtime. This awkward dosing was initiated in response to pain crisis several months ago, this patient perceived oxycodone was not working. Given her opioid load, this is a fairly higher dose in comparison, she is currently managed on oxycodone 5 mg twice daily, Lyrica 100 mg twice daily and her duloxetine both for her depression and neuropathic pain syndrome. Is at 120 mg. She also has had her Risperdal decreased recently to 4 mg, and again attempt to address her fluctuating level of consciousness. I am seeing patient this morning, she is able to engage, she does complain of a migraine on the right side. She reports she gets these a couple times a month. Patient reports she was up the other day in her wheelchair, she feels this exacerbates her pain in her hands, particularly since she is not actively up on a regular basis anymore. She also expresses distress about her bedbound status. Her right DTI on her heel is now healed, they do have her on a new pressure relief mattress. She continues with a stage II decub in her coccyx, currently managed with barrier cream. Patient denies fever or chills, cough, does complain of some nausea and has had some intermittent heartburn. She reports her bowels are moving on a regular basis. She does not describe anything different from her baseline pain, sharp shooting, fluctuates in status, mostly located in her legs. She is currently not describing any back pain. Patient's past medical history includes long list of comorbidities including but not limited to schizophrenia, depression, asthma, hypertension, peripheral neuropathy, status post left [id number] amputation, osteoarthritis, phantom limb pain, venous stasis of her right leg, CKD stage IV, failed back syndrome, kidney stones, and suprapubic catheter. Social History - Living Situation Living arrangement: long term Support System: [facility] for 6 years now.She is intermittently visited by her daughters, unable to expand on this, she has not been able to go to her counseling appointments but her community outreach person has been coming to the facility. Medications/Allergies - Medications Home Medications: Ambulatory Orders Medication Instructions Recorded Confirmed Aspirin Chewable [[place] 81 mg PO DAILY 09/29/13 07/14/18 Aspirin] diltiaZEM CD [Cardizem Cd] 240 mg PO BID 09/29/13 07/14/18 Multivitamin [Multivitamins] 1 each PO DAILY 06/06/14 07/14/18 Potassium Chloride 10 meq PO DAILY 06/06/14 07/14/18 Losartan [Cozaar] 100 mg PO DAILY 02/14/17 07/14/18 diphenhydrAMINE [Benadryl] 25 mg PO Q6H PRN 02/14/17 07/14/18 tiZANidine [Zanaflex] 4 mg PO BID 02/14/17 07/14/18 DULoxetine [Cymbalta] 120 mg PO DAILY 02/19/17 07/14/18 Furosemide [Lasix] 20 mg PO DAILY 04/25/17 07/14/18 Acetaminophen 500 mg PO Q6HR PRN 10/06/17 07/14/18 Meclizine HCl [Motion Sickness 25 mg PO BID PRN 10/06/17 07/14/18 Relief] Melatonin 3 mg PO QPM 10/06/17 07/14/18 Polyethylene Glycol 3350 [Miralax] 17 gm PO BID 10/06/17 07/14/18 Pregabalin [Lyrica] 100 mg PO BID 10/06/17 07/14/18 Albuterol Sulfate [Proair Hfa 2 puffs INH QID PRN MDD four times 11/19/17 07/14/18 Inhaler] Sucralfate [Carafate] 1 gm PO QID PRN 12/25/17 07/14/18 oxyCODONE [Roxicodone] 5 mg PO BID 02/13/18 07/14/18 Saccharomyces Boulardii [Florastor] 250 mg PO BID #60 capsule 02/16/18 07/14/18 Risperidone [Risperdal] 4 mg PO ACHS 05/05/18 07/14/18 oxyCODONE [Roxicodone] 5 mg PO Q4HR 05/05/18 07/14/18 Bisacodyl [Dulcolax] 5 mg PO DAILY 07/14/18 07/14/18 Calcium Carbonate [Tums (Calcium 2 tab PO Q4HR PRN 07/14/18 07/14/18 Carbonate 500mg)] HYDROcod/ACETAM 5/325 [[place] 5/325] 1.5 tab PO TID PRN 07/14/18 07/14/18 Ondansetron HCl [Zofran] 4 mg PO Q6HR PRN 07/14/18 07/14/18 - Allergies Allergies/Adverse Reactions: Allergies Allergy/AdvReac Type Severity Reaction Status Date / Time erythromycin base Allergy Severe Anaphylaxis Verified 02/12/18 23:19 [Erythromycin Base] Penicillins Allergy Severe Anaphylaxis Verified 02/12/18 23:19 Sulfa (Sulfonamide Allergy Severe Redness/High Verified 02/12/18 23:19 Antibiotics) fever lisinopril Allergy Unknown Unknown Verified 02/12/18 23:19 ceftriaxone Allergy Rash Verified 02/12/18 23:19 quinidine Allergy Rash Verified 02/12/18 23:19 Review of Systems - Constitutional Constitutional: reports: Fatigue, Weight stable (170; Patient being supported on med CounterStorm 120 mils 3 times daily) - Eyes Eyes: reports: Vision loss - Ears, Nose & Throat Ears, Nose & Throat: reports: Hearing loss, Dental decay, Dry mouth - Cardiovascular Cardiovascular: reports: Decr. exercise tolerance - Gastrointestinal Gastrointestinal: reports: Nausea, Reflux/heartburn, Early satiety - Genitourinary Genitourinary: reports: Other (suprapubic catheter) - Musculoskeletal Musculoskeletal: reports: Muscle aches, Stiffness, Limited range of motion, Muscle weakness, Transfer issues - Integumentary Integumentary: reports: Dryness - Neurological Neurological: reports: Headache (migraine right side this am), Memory problems (patient with poor recall of events; often confabulates) - Psychiatric Psychiatric: reports: Depression, Anxiety. denies: Suicidal - Endocrine Endocrine: reports: Diabetes type 2 - Hematologic/Lymphatic Hematologic/Lymphatic: reports: Recurrent infections (last treated May) - All Other Systems All Other Systems: reports: Reviewed and negative Physical Exam - Vital Signs Temperature: 96.7 C Pulse Rate: 68 Respiratory Rate: 18 O2 Saturation: 94 (ra @ rest) Blood Pressure: 112/68 - Physical Exam General Appearance: positive: Mild distress (related to migrain), Lethargic Eyes Bilateral: positive: Normal inspection ENT: positive: Dry mucous membranes Neck: positive: No JVD, Trachea midline Cardiovascular: positive: Regular rate & rhythm Respiratory: positive: Diminished in bases. negative: Wheezes, Rales, Rhonchi Abdomen: positive: Soft, Nml bowel sounds, Tenderness (diffuse tenderness with palpation) Skin: positive: Pallor, Dryness, Pressure wound (dressing on right ankle for protection; staff report healed patient confirmed) Extremities: positive: No pedal edema Neurologic/Psychiatric: positive: Mood/affect nml, Disoriented to time, Weakness, Flat affect Palliative Care - POLST Patient has POLST: Yes POLST Status: DNR, Comfort Measures (Patient dislikes very much going to the hospital, though does present with limited decision-making capacity. Patient does perceive her quality of life is continuing to deteriorate.) Pain: Pain unchanged (see hpi) Tiredness/Fatigue: Moderate (4-6) Drowsiness/Sedation: Moderate (4-6) Nausea: Moderate (4-6) Depression: Moderate (4-6) Anxiety: Mild (1-3) Dyspnea: None Anorexia: Mild (1-3) Sleep: Sleeps well Constipation: Yes, Opoid induced, Managed Feelings of wellbeing/Perceived Quality of Life: Fair, Worsening Performance Status: Patient's functional status continues to decrease. Patient is spending more time in her bed. She does need maximum assist to transfer to her wheelchair. She does perceive needing to wheel around as a barrier secondary to her exacerbates her hand pain. Patient is sleeping more and less engaged. She has maximum assist for bathing, is able to feed herself, though does need cueing and set up. - Palliative Care Discussion: Patient continues to complain of poor quality of life, is not feeling well today has multiple complaints that get regenerated from past perceptions and inner actions. Patient is getting support from the palliative care assistant professor of biochemistry. Results - Lab Results Lab results reviewed: Yes Lab and Imaging Results: Influenza a was negative. 31 BUN 45 up from 13 on 05/21 creatinine 0.9 GFR 61 Impression and Recommendations - Palliative Care Impression: This is a 73-year-old woman who presents with ongoing functional and cognitive decline, she continues to have fluctuating level of consciousness most likely multifactorial. Patient with fairly high symptom burden, complicated by lidia vijaya's underlying mental health issues. Palliative care to continue to provide support with focus on quality of life issues. Recommendations/Counseling Done: 1. DTI right heel. Especially mattress on bed, injury resolved. 2. Stage II decub. Patient remains bedbound, difficulty repositioning herself, has not progressed and is being treated with topical. 3. CKD stage III. Patient's labs did show some improvement with discontinuing furosemide, and follow-up GFR and creatinine elevated, will decrease to every other day dosing given patient's swelling is resolved. 4. Generalized weakness. Patient has remained mostly bedbound, up infrequently. This is impacted by her lethargy, as well as willingness to participate. Encouraged patient to be up on days that she is feeling better. 5. Lethargy. Influenza A ruled out, patient does present with migraine and nausea today. Did order ondansetron 4 mg ODT 1 tab every 6 hours as needed. Reviewed medications again, will decrease her hydrocodone dosing, as it is in comparison to her opioid load, and timing and evenings may be adding to morning somnolence. Patient's urine is clear, no fever or chills, no symptoms of UTI. We will continue to monitor and treat medications. 6. Anorexia. Patient is getting med Pass, weight stable. Encouraged use of Tums and or nausea medication if impacting ability to eat. 7. Depression. Patient continues with depressive symptoms, expresses feelings of grief and loss related to her bedbound status. Has not been able to follow- up with her mental health appointments. Palliative care assistant professor of biochemistry is visiting for support as well. 8. Acute on chronic pain. Patient has fluctuations in her pain status, does not appear to complain more or less with titration of medications. Does describe phantom limb pain with sharp shooting pains, will continue to monitor. If patient's kidney function improves can consider adding another dose of Lyrica. Time Spent: Time spent 30 minutes with greater than 50% of this done in counseling and coordination of care with facility staff related to etiology of lethargy, patient's complaints, and anticipatory guidance
== END 2018-07-14 10:26 | disposition home or self-care (01) ==
LOC: PC 10:25
PROVIDERS: ATTEND Nurse Practitioner Adult Health
DX: Z51.5 Encounter for palliative care (principal); L89.152 Pressure ulcer of sacral region, stage 2; E11.22 Type 2 diabetes mellitus with diabetic chronic kidney disease; I12.9 Hypertensive chronic kidney disease with stage 1 through stage 4 chronic kidney disease, or unspecified chronic kidney disease; N18.3 Chronic kidney disease, stage 3 (moderate); R53.1 Weakness; R53.83 Other fatigue; G43.909 Migraine, unspecified, not intractable, without status migrainosus; R11.0 Nausea; R63.0 Anorexia; F32.9 Major depressive disorder, single episode, unspecified; G54.6 Phantom limb syndrome with pain; E11.42 Type 2 diabetes mellitus with diabetic polyneuropathy; F20.9 Schizophrenia, unspecified; Z74.01 Bed confinement status; Z79.899 Other long term (current) drug therapy; Z79.891 Long term (current) use of opiate analgesic; Z89.612 Acquired absence of left leg above knee; Z66 Do not resuscitate
CPT/HCPCS: 99309

== ENCOUNTER 2018-08-17 08:00 | Outpatient (CLI) | payer MEDICARE, MEDICAID ==
[2018-08-17 21:57] LABS: BASOPHILS % (AUTO) 0.5 %; EOSINOPHILS # (AUTO) 0.4 10^3/uL (0.0-0.7); EOSINOPHILS % (AUTO) 5.8 %; LYMPHOCYTES # (AUTO) 1.6 10^3/uL (1.5-3.5); LYMPHOCYTES % (AUTO) 25.6 %; MEAN CORPUSCULAR HEMOGLOBIN 26.5 pg (27.0-31.0); MEAN CORPUSCULAR HGB CONC 32.4 g/dL (32.0-36.0); MEAN CORPUSCULAR VOLUME 81.7 fL (81.0-99.0); MEAN PLATELET VOLUME 9.2 fL (7.9-10.8); MONOCYTES # (AUTO) 0.7 10^3/uL (0.0-1.0); MONOCYTES % (AUTO) 11.3 %; NEUTROPHILS # (AUTO) 3.6 10^3/uL (1.5-6.6); NEUTROPHILS % (AUTO) 56.8 %; PLT - PLATELET COUNT 211 10^3/uL (130-450); RED BLOOD COUNT 3.76 10^6/uL (4.20-5.40); RED CELL DISTRIBUTION WIDTH 16.8 % (12.0-15.0); WHITE BLOOD COUNT 6.4 x10^3/uL (4.8-10.8)
== END 2018-08-17 23:59 | disposition home or self-care (01) ==
LOC: LAB.R 08:00
DX: I10 Essential (primary) hypertension (principal); D64.9 Anemia, unspecified
CPT/HCPCS: 85025

== ENCOUNTER 2018-08-18 08:00 | Outpatient (CLI) | payer MEDICARE, MEDICAID ==
[2018-08-18 13:25] LABS: CREATININE 0.6 mg/dL (0.4-1.0)
== END 2018-08-18 23:59 | disposition home or self-care (01) ==
LOC: LAB.R 08:00
DX: D64.9 Anemia, unspecified (principal)
CPT/HCPCS: 80048; 82728

== ENCOUNTER 2018-11-25 05:30 | Outpatient (CLI) | payer MEDICARE, MEDICAID ==
[2018-11-25 06:44] LABS: BILIRUBIN,URINE NEGATIVE (NEGATIVE); GLUCOSE, URINE (UA) NEGATIVE (NEGATIVE); KETONES,URINE (UA) NEGATIVE (NEGATIVE); LEUKOCYTE ESTERASE, URINE LARGE (NEGATIVE); NITRITE,URINE POSITIVE (NEGATIVE); OCCULT BLOOD,URINE TRACE-INTA (NEGATIVE); PH,URINE 7.5 PH (5.0-7.5); PROTEIN,URINE NEGATIVE (NEGATIVE); UROBILINOGEN,URINE 0.2 (NORMAL) E.U./dL (NORMAL)
[2018-11-25 06:47] LABS: CLARITY,URINE HAZY (CLEAR)
[2018-11-25 06:51] LABS: RBC,URINE 0-5 /HPF (0-5)
[2018-11-25 06:52] LABS: BACTERIA,URINE Many /HPF (None Seen); SQUAMOUS EPITHELIAL CELL,UR FEW Squamous (<= Few)
== END 2018-11-25 23:59 | disposition home or self-care (01) ==
LOC: LAB.R 05:30
DX: N39.0 Urinary tract infection, site not specified (principal)
CPT/HCPCS: 81001; 81003; 87077; 87086; 87181

== ENCOUNTER 2018-12-02 13:20 | Outpatient (CLI) | payer MEDICARE, MEDICAID ==
--- NOTE | 2018-12-02 16:58 | CONSULTATION NOTE ---
Palliative Care Follow Up - Referral Referring Provider: Dr Washington Time of Visit: 12/02/2018. 13:20 -14:05 Referral Reason: Chronic pain - Information Sources Records reviewed: RN notes reviewed, Previous records reviewed History/Review of Systems obtained from: Patient, Nursing Exam limitations: Clinical condition (poor historian) - History of Present Illness Update Brief HPI Update: 73-year-old woman with a very complex and long history of multiple comorbidities as well as underlying mental health issues. 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 Patient has recently had carpal tunnel surgery on L wrist, stitches remain, area has no redness, swelling or tenderness. She denies pain at surgery site. Does report phantom pain in LLE is worse today and has been increasing in the past week or so and that her L foot hurts. Patient does understand that this is phantom limb pain. Also has chronic back pain, with shooting pain down into the L limb and into her "foot." The amputation of LLE has been years, patient is vague historian, unable to recall. Patient reports being up in a wheelchair daily, but is currently in bed in the afternoon. Most of the time she says she is in wheelchair. Nursing staff reports that patient's chronic pain has a long-standing pattern of fluctuations betwee periods of taking more PRN medications and more lethargic period when she requests less medications. Pain management has historically been very challenging, particularly in context of her schizophrenia, anxiety and depression. Nursing staff recently conducted a pain assessment, and since patient often wakes at 1-2am complaining of pain, suggests adding a routine dose of oxycodone sometime between 1-2am. Patient is currently on routine oxycodone TID (0800, 1600, 1999). Discussed this option at length with the patient, she ultimately declined having a routine dose in the middle of the night -- she does not want to be woken up. She agrees with the current plan of ringing for pain medication when she needs it. In addition to her routine oxycodone she oxycodone PRN. This month she's used it in the middle of the night 8 out of 24 nights, so about 1/3 the time. Her overall pattern of PRN oxycodone usage this month has been less than half the days: 11 out of 25 days. She is also on pregabalin 100mg BID plus 75mg at bedtime, for phantom limb pain, as well as tizanadine. Social History - Living Situation Living arrangement: residential ([facility]) Living Situation: With caregiver(s) Support System: Patient has lived at [facility] about 6 years. She has intermittent visits from her daughters. Has community outreach person who visits her at the facility. Medications/Allergies - Medications Home Medications: Ambulatory Orders Medication Instructions Recorded Confirmed Multivitamin [Multivitamins] 1 each PO DAILY 06/06/14 12/03/18 Potassium Chloride 10 meq PO DAILY 06/06/14 12/03/18 Losartan [Cozaar] 100 mg PO DAILY 02/14/17 12/03/18 tiZANidine [Zanaflex] 4 mg PO BID 02/14/17 12/03/18 Meclizine HCl [Motion Sickness 25 mg PO BID PRN 10/06/17 12/03/18 Relief] Melatonin 6 mg PO QPM 10/06/17 12/03/18 Polyethylene Glycol 3350 [Miralax] 17 gm PO DAILY 10/06/17 12/03/18 Pregabalin [Lyrica] 100 mg PO BID 10/06/17 12/03/18 oxyCODONE [Roxicodone] 5 mg PO TID 02/13/18 12/03/18 Risperidone [Risperdal] 4 mg PO ACHS 05/05/18 12/03/18 oxyCODONE [Roxicodone] 5 mg PO Q4HR PRN 05/05/18 12/03/18 Bisacodyl [Dulcolax] 5 mg PO DAILY PRN 07/14/18 12/03/18 Acetaminophen 500 mg PO Q6H PRN MDD 3000mg per 12/03/18 12/03/18 24 hours Albuterol Sulfate [Albuterol 2 puffs INH QID PRN 12/03/18 12/03/18 Sulfate Hfa] Aspirin [Aspirin EC] 81 mg PO DAILY 12/03/18 12/03/18 Biofreeze Gel 4% 1 ea TOP BID 12/03/18 Biofreeze Gel 4% 1 ea TOP BID PRN MDD on left stump 12/03/18 Calcium Carbonate 1 tab PO Q4H PRN 12/03/18 12/03/18 Calcium Carbonate 2 tab PO Q4H PRN 12/03/18 12/03/18 Duloxetine HCl [Cymbalta] 120 mg PO DAILY 12/03/18 12/03/18 Ferrous Gluconate 240 mg PO DAILY 12/03/18 12/03/18 Furosemide 20 mg PO DAILY 12/03/18 12/03/18 Hydroxyzine 25mg 25 mg PO Q6H PRN 12/03/18 Levofloxacin [Levaquin] 750 mg PO DAILY MDD for 5 days 12/03/18 12/03/18 until 12/04/18 Medpass 2.0 120 ml PO TID 12/03/18 Neomycin Cramer/Bacitrac Zn/Poly 1 ea TOP QID MDD until 12/10/18 12/03/18 12/03/18 [Triple Antibiotic Ointment] Nystatin 1 each TOP BID PRN 12/03/18 12/03/18 Pregabalin [Lyrica] 12/03/18 12/03/18 Pregabalin [Lyrica] 75 mg PO .QHS 12/03/18 12/03/18 Robitussin Pk Dold Day/Night 10 ml PO Q6H PRN 12/03/18 Senna [Senokot] 8.6 mg PO DAILY PRN 12/03/18 12/03/18 Verapamil HCl [Calan Sr] 120 mg PO DAILY 12/03/18 12/03/18 - Allergies Allergies/Adverse Reactions: Allergies Allergy/AdvReac Type Severity Reaction Status Date / Time erythromycin base Allergy Severe Anaphylaxis Verified 02/12/18 23:19 [Erythromycin Base] Penicillins Allergy Severe Anaphylaxis Verified 02/12/18 23:19 Sulfa (Sulfonamide Allergy Severe Redness/High Verified 02/12/18 23: Antibiotics) fever lisinopril Allergy Unknown Unknown Verified 02/12/18 23: ceftriaxone Allergy Rash Verified 02/12/18 23: quinidine Allergy Rash Verified 02/12/18 23: Review of Systems - Constitutional Constitutional: reports: Fatigue, Weight gain (185.6 lbs 12/02/18. In November her range has been 182-189 lbs. In July she weighed 170 lbs. She continues on MedPass TID.) - Eyes Eyes: reports: Vision loss - Ears, Nose & Throat Ears, Nose & Throat: reports: Hearing loss, Dental decay - Cardiovascular Cardiovascular: reports: Decr. exercise tolerance - Gastrointestinal Gastrointestinal: denies: Constipation, Poor appetite - Genitourinary Genitourinary: reports: Other (suprpubic catheter) - Musculoskeletal Musculoskeletal: reports: Muscle pain, Muscle aches, Stiffness, Muscle weakness, Assistive devices (wheelchair), Transfer issues - Integumentary Integumentary: reports: Dryness - Neurological Neurological: reports: Memory problems - Psychiatric Psychiatric: reports: Depression, Anxiety - Endocrine Endocrine: reports: Diabetes type 2 - Hematologic/Lymphatic Hematologic/Lymphatic: reports: Recurrent infections (UTIs. Currently on levaquin until 12/04/ for UTI) Physical Exam - Vital Signs Temperature: 96.3 F Pulse Rate: 82 O2 Saturation: 98 Blood Pressure: 72/45 - Physical Exam General Appearance: positive: No acute distress, Alert Eyes Bilateral: positive: Normal inspection ENT: positive: No signs of dehydration Neck: positive: Trachea midline Cardiovascular: positive: Regular rate & rhythm, No murmur Respiratory: positive: Diminished in bases. negative: Wheezes, Rales, Rhonchi Abdomen: positive: Non-tender, Soft Skin: positive: Dryness Extremities: positive: No pedal edema, Other (L AKA) Neurologic/Psychiatric: positive: Disoriented to time, Weakness, Flat affect Palliative Care - POLST Patient has POLST: Yes POLST Status: DNR, Comfort Measures Pain: Pain worsening (history of fluctuating pain levels and "phantom limb" pain) Tiredness/Fatigue: Severe (7-10) Drowsiness/Sedation: Mild (1-3) Nausea: None Depression: Moderate (4-6) Dyspnea: Mild (1-3) Anorexia: None Constipation: No, Managed Feelings of wellbeing/Perceived Quality of Life: Comment (not a good day) Performance Status: wheelchair bound L AKA requires help with all ADLs suprapubic catheter - Palliative Care Discussion: Patient reports pain is 9 before medicatoins, and goes down to 6-7 after medications. Nursing reports this is consistent with patient's history. She may find comfort i taking pills as opposed to another form such as transdermal patches. Did discuss with patient "mind pain" and non-pharm methods of pain management such as reframing, visualization, meditation/prayer. Patient says she has used that before. She prays a lot and feels she would not make it without her maday. She also imagines being a bird and being able to fly a lot. Patient was surprised she was opening up and talking about this today. She says normally she does not talk about it. Impression and Recommendations - Palliative Care Impression: 73-year-old woman with a very complex and long history of multiple comorbidities as well as underlying mental health issues, with ongoing, fluctuating levels of pain related to phantom limb pain. Recommendations/Counseling Done: UTI: Suprapubic catheter, and history of frequent UTIs. Currently being treated for the most recent episode, with Levaquin 750mg daily until 12/04/18. Generalized weakness: Patient reports getting up out of bed most days. Nursing reports she has fluctuating cycles of lethargy. When she is not lethargic she tends to request more pain pills. Encouraged patient to get up as often as possible. Depression: Continue duloxetine BID. Palliative care research program assistant has visited for support; patient's maday is important and sustains her. Acute on chronic pain. Patient continues to fluctuate with her pain status, continues to report phantom limb pain with sharp shooting pains, will keep her on current regiment and continue to monitor. She's on Oxycodone 5mg TID routine, plus oxycodone 5mg PRN, which she asks for on less than half of the days (so far this month). Patient declines having a routine dose added at 1-2am (suggested by after facility's nursing assessment of pain), she does not want to be woken up routinely in the night. Also continue with Lyrica BID, and tizanidine. Reviewed non-pharm methods and encouraged patient to continue: visualization, reframing, prayer/meditation, increase activity and get out of bed/out of room. Time Spent: 45 minutes were spent with more than 50% of the time spent on counseling, education, and coordination of care with facility staff
== END 2018-12-02 13:21 | disposition home or self-care (01) ==
LOC: PC 13:20
PROVIDERS: ATTEND Nurse Practitioner
DX: Z51.5 Encounter for palliative care (principal); G89.29 Other chronic pain; G54.6 Phantom limb syndrome with pain; N39.0 Urinary tract infection, site not specified; F32.9 Major depressive disorder, single episode, unspecified; F20.9 Schizophrenia, unspecified; Z79.899 Other long term (current) drug therapy; Z79.891 Long term (current) use of opiate analgesic; Z93.50 Unspecified cystostomy status; Z66 Do not resuscitate; Z99.3 Dependence on wheelchair; Z89.612 Acquired absence of left leg above knee; Z98.890 Other specified postprocedural states
CPT/HCPCS: 99310

== ENCOUNTER 2018-12-06 22:00 | Outpatient (CLI) | payer MEDICARE, MEDICAID ==
[2018-12-06 01:54] LABS: BASOPHILS % (AUTO) 0.5 %; EOSINOPHILS # (AUTO) 0.6 10^3/uL (0.0-0.7); EOSINOPHILS % (AUTO) 6.7 %; HGB - HEMOGLOBIN 10.7 g/dL (12.0-16.0); LYMPHOCYTES # (AUTO) 2.3 10^3/uL (1.5-3.5); LYMPHOCYTES % (AUTO) 28.1 %; MEAN CORPUSCULAR HGB CONC 31.6 g/dL (32.0-36.0); MEAN CORPUSCULAR VOLUME 85.4 fL (81.0-99.0); MEAN PLATELET VOLUME 11.4 fL (7.9-10.8); MONOCYTES # (AUTO) 0.8 10^3/uL (0.0-1.0); MONOCYTES % (AUTO) 9.8 %; NEUTROPHILS # (AUTO) 4.5 10^3/uL (1.5-6.6); NEUTROPHILS % (AUTO) 54.5 %; PLT - PLATELET COUNT 221 10^3/uL (130-450); RED BLOOD COUNT 3.97 10^6/uL (4.20-5.40); RED CELL DISTRIBUTION WIDTH 14.7 % (12.0-15.0); WHITE BLOOD COUNT 8.3 x10^3/uL (4.8-10.8)
== END 2018-12-06 23:59 | disposition home or self-care (01) ==
LOC: LAB.R 22:00
PROVIDERS: ATTEND Internal Medicine
DX: D50.9 Iron deficiency anemia, unspecified (principal)
CPT/HCPCS: 85025

== ENCOUNTER 2018-12-06 22:00 | Outpatient (CLI) | payer MEDICARE, MEDICAID | END 2018-12-06 23:59 | disposition home or self-care (01) | LOC: LAB.R 22:00 | DX: D50.9 Iron deficiency anemia, unspecified (principal) | CPT/HCPCS: 82728 ==

== ENCOUNTER 2018-12-08 08:00 | Outpatient (CLI) | payer MEDICARE, MEDICAID ==
[2018-12-08 20:06] LABS: BASOPHILS % (AUTO) 0.4 %; CALCIUM 9.1 mg/dL (8.5-10.3); CREATININE 0.8 mg/dL (0.4-1.0); EOSINOPHILS # (AUTO) 0.4 10^3/uL (0.0-0.7); EOSINOPHILS % (AUTO) 4.9 %; HGB - HEMOGLOBIN 11.4 g/dL (12.0-16.0); LYMPHOCYTES # (AUTO) 2.2 10^3/uL (1.5-3.5); LYMPHOCYTES % (AUTO) 24.4 %; MEAN CORPUSCULAR HEMOGLOBIN 26.7 pg (27.0-31.0); MEAN CORPUSCULAR HGB CONC 31.2 g/dL (32.0-36.0); MEAN CORPUSCULAR VOLUME 85.5 fL (81.0-99.0); MEAN PLATELET VOLUME 11.5 fL (7.9-10.8); MONOCYTES # (AUTO) 0.9 10^3/uL (0.0-1.0); MONOCYTES % (AUTO) 10.1 %; NEUTROPHILS # (AUTO) 5.3 10^3/uL (1.5-6.6); NEUTROPHILS % (AUTO) 59.9 %; PLT - PLATELET COUNT 229 10^3/uL (130-450); RED BLOOD COUNT 4.27 10^6/uL (4.20-5.40); RED CELL DISTRIBUTION WIDTH 14.7 % (12.0-15.0); WHITE BLOOD COUNT 8.9 x10^3/uL (4.8-10.8)
== END 2018-12-08 23:59 | disposition home or self-care (01) ==
LOC: LAB.R 08:00
DX: N17.9 Acute kidney failure, unspecified (principal)
CPT/HCPCS: 80048; 85025

== ENCOUNTER 2018-12-15 13:25 | Outpatient (CLI) | payer MEDICARE, MEDICAID ==
--- NOTE | 2018-12-15 15:44 | CONSULTATION NOTE ---
Palliative Care Follow Up - Referral Referring Provider: Dr Leandro Washington Time of Visit: Thu12/15/2018. 13:25 - 13:50 Referral setting: [facility] ([facility]) Referral Reason: Phantom limb pain - Information Sources Records reviewed: RN notes reviewed History/Review of Systems obtained from: Patient, Nursing Exam limitations: Clinical condition (poor historian) - History of Present Illness Update Brief HPI Update: 73-year-old woman with a very complex and long history of multiple comorbidities as well as underlying mental health issues, has ongoing pain management concerns. 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 Patient today is on her way to [facility] for counseling. Patient does report currently no phantom limb pain but in general it is ongoing. This is her baseline She also had pain in joints of hand and other knee. Nursing reports that she is also often somnolent and sleeping, it's always a challenge balance her oversedation/respiratory depression with pain and psych medications. She can be difficult to rouse. Last night staff reports she was up until 4am. Patient has reported she has trouble sleeping. She is already on melatonin She also has routine oxycodone 5mg 3x/daily. Considered adding long-acting opioid at night, but she has had respiratory sedation, hence too much of a risk to introduce long-acting opioid. Also a risk to increase the dose of the short acting opioid. Will add Voltaren gel for hands and knee joint 3x/day. Patient reports she feels her depression has improved since the conversation with Palliative Care at the previous visit. Social History - Living Situation Living arrangement: shelter ([facility]) Living Situation: With caregiver(s) Support System: Patient has lived at [facility] about 6 years. She has intermittent visits from her daughters. Has community outreach person who visits her at the facility. Medications/Allergies - Medications Home Medications: Ambulatory Orders Medication Instructions Recorded Confirmed Multivitamin [Multivitamins] 1 each PO DAILY 06/06/14 12/03/18 Potassium Chloride 10 meq PO DAILY 06/06/14 12/03/18 Losartan [Cozaar] 100 mg PO DAILY 02/14/17 12/03/18 tiZANidine [Zanaflex] 4 mg PO BID 02/14/17 12/03/18 Meclizine HCl [Motion Sickness 25 mg PO BID PRN 10/06/17 12/03/18 Relief] Melatonin 6 mg PO QPM 10/06/17 12/03/18 Polyethylene Glycol 3350 [Miralax] 17 gm PO DAILY 10/06/17 12/03/18 Pregabalin [Lyrica] 100 mg PO BID 10/06/17 12/03/18 oxyCODONE [Roxicodone] 5 mg PO TID 02/13/18 12/03/18 Risperidone [Risperdal] 4 mg PO ACHS 05/05/18 12/03/18 oxyCODONE [Roxicodone] 5 mg PO Q4HR PRN 05/05/18 12/03/18 Bisacodyl [Dulcolax] 5 mg PO DAILY PRN 07/14/18 12/03/18 Acetaminophen 500 mg PO Q6H PRN MDD 3000mg per 12/03/18 12/03/18 24 hours Albuterol Sulfate [Albuterol 2 puffs INH QID PRN 12/03/18 12/03/18 Sulfate Hfa] Aspirin [Aspirin EC] 81 mg PO DAILY 12/03/18 12/03/18 Biofreeze Gel 4% 1 ea TOP BID 12/03/18 Biofreeze Gel 4% 1 ea TOP BID PRN MDD on left stump 12/03/18 Calcium Carbonate 1 tab PO Q4H PRN 12/03/18 12/03/18 Calcium Carbonate 2 tab PO Q4H PRN 12/03/18 12/03/18 Duloxetine HCl [Cymbalta] 120 mg PO DAILY 12/03/18 12/03/18 Ferrous Gluconate 240 mg PO DAILY 12/03/18 12/03/18 Furosemide 20 mg PO DAILY 12/03/18 12/03/18 Hydroxyzine 25mg 25 mg PO Q6H PRN 12/03/18 Neomycin Cramer/Bacitrac Zn/Poly 1 ea TOP QID MDD until 12/10/18 12/03/18 12/03/18 [Triple Antibiotic Ointment] Nystatin 1 each TOP BID PRN 12/03/18 12/03/18 Pregabalin [Lyrica] 75 mg PO .QHS 12/03/18 12/03/18 Robitussin Pk Dold Day/Night 10 ml PO Q6H PRN 12/03/18 Senna [Senokot] 8.6 mg PO DAILY PRN 12/03/18 12/03/18 Verapamil HCl [Calan Sr] 120 mg PO DAILY 12/03/18 12/03/18 Medpass 2.0 120ml 120 ml PO TID 12/16/18 - Allergies Allergies/Adverse Reactions: Allergies Allergy/AdvReac Type Severity Reaction Status Date / Time erythromycin base Allergy Severe Anaphylaxis Verified 02/12/18 23:19 [Erythromycin Base] Penicillins Allergy Severe Anaphylaxis Verified 02/12/18 23:19 Sulfa (Sulfonamide Allergy Severe Redness/High Verified 02/12/18 23:19 Antibiotics) fever lisinopril Allergy Unknown Unknown Verified 02/12/18 23: ceftriaxone Allergy Rash Verified 02/12/18 23: quinidine Allergy Rash Verified 02/12/18 23:19 Review of Systems - Constitutional Constitutional: reports: Fatigue, Weight gain (185.6 lbs 12/02/18. In November her range has been 182-189 lbs. In July she weighed 170 lbs. She continues on MedPass TID.) - Eyes Eyes: reports: Vision loss - Ears, Nose & Throat Ears, Nose & Throat: reports: Hearing loss, Dental decay - Cardiovascular Cardiovascular: reports: Decr. exercise tolerance - Gastrointestinal Gastrointestinal: reports: Constipation, Poor appetite - Genitourinary Genitourinary: reports: Other (Suprapubic catheter) - Musculoskeletal Musculoskeletal: reports: Muscle pain, Muscle aches, Stiffness, Muscle weakness, Assistive devices (wheelchair), Transfer issues - Integumentary Integumentary: reports: Dryness - Neurological Neurological: reports: Memory problems - Psychiatric Psychiatric: reports: Depression (improved with conversation), Anxiety - Endocrine Endocrine: reports: Diabetes type 2 - Hematologic/Lymphatic Hematologic/Lymphatic: reports: Recurrent infections (UTIs. Most recent abx cycle terminated 12/04/18) Physical Exam - Vital Signs Temperature: 96.2 F Pulse Rate: 64 O2 Saturation: 95 (room air) Blood Pressure: 149/80 (wrist cuff) - Physical Exam General Appearance: positive: No acute distress, Alert Eyes Bilateral: positive: Normal inspection ENT: positive: No signs of dehydration Neck: positive: Trachea midline Cardiovascular: positive: Regular rate & rhythm, No murmur Respiratory: positive: Diminished in bases. negative: Wheezes, Rales, Rhonchi Skin: positive: Dryness Extremities: positive: Pedal edema, Other (L AKA) Neurologic/Psychiatric: positive: Mood/affect nml, Disoriented to time Palliative Care - POLST Patient has POLST: Yes POLST Status: DNR, Comfort Measures Pain: Pain unchanged, Location (hands, knees, phantom limb) Tiredness/Fatigue: None, Comment (her baseline is fluctuating somnolence and lethargy; currently she is awake and aware, is about to head out to her counseling appointment) Drowsiness/Sedation: None (awake at this visit) Nausea: None Depression: Mild (1-3) (improved) Anxiety: Mild (1-3) Sleep: Sleeps poorly, Variable sleep pattern Performance Status: wheelchair bound L ROGELIO requires help with all ADLs suprapubic catheter - Palliative Care Discussion: Patient reports right at this time no pain. She has recently complained to facility about her pain medication, she wants it increased. Reports from staff at facility and Palliative Care SOCIAL STUDIES DEPARTMENT CHAIR is that her fluctuating pain vs lethargy is baseline for the patient, she has consistently reported pain and dissatisfaction with whatever changes and adjustments to pain regimen have been made, keeping in mind her demonstrated history of respiratory depression and over-sedation secondary to opioid meds. She is often sleeping, lethargic and difficult to arouse. Starting her on long-acting has a high risk (the opioid remaining in her system in case of over-sedation). Her main pain is the phantom limb pain, but she also has joint pain in hands and knee. Will try voltaren gel.. She does benefit from interpersonal contact. Today she is going to her counselor at [facility]. Palliative Care Content Curator has been visiting monthly. Prayer helps sustain her. Results - Lab Results Lab results reviewed: Yes Impression and Recommendations - Palliative Care Impression: 73-year-old woman with a very complex and long history of multiple comorbidities as well as underlying mental health issues, with ongoing, fluctuating levels of pain related to phantom limb pain and arthritic pain. Recommendations/Counseling Done: Insomnia: Continue melatonin 6mg. Psychiatrist had been managing her psych meds, this would include trazodone if it were to be considered, facility can consult with psych provider who has been managing psych med. Had considered switchinig to long-acting oxy for the PM dosing, but long-acting opioids are too high risk with her h/o oversedation and respiratory depression. Acute on chronic pain. Ongoing phantom limb pain with sharp shooting pains. Many iterations of pain management has been tried. Continue the current routine of scheduled Oxycodone 5mg TID plus oxycodone 5mg Q4 PRN. She does have issues with lethargy and somnolence and is on Switch the PM oxycodone to long-acting Oxycontin 10mg. See Insomnia above for reasoning to not start a long-acting opioid. Continue Lyrica TID (100mg AM and midday, 75mg PM), and tizanidine. Also reiterate non-pharm methods with the patient, which can be particularly effective: visualization, reframing, prayer/meditation, increase activity and social contact, getting her out of bed/out of room. UTI: Suprapubic catheter, and history of frequent UTIs. Recently completed Levaquin regimen 12/04/18 for most recent UTI. No complaints of dysurian Generalized weakness: Patient reports getting up out of bed most days. Nursing reports she has fluctuating cycles of lethargy. When she is not lethargic she tends to request more pain pills. Continue to encourage patient to get up as often as possible. Depression: Patient reports feeling less depressed since Palliative Care discussion at 12/02 visit. She does pray and her worship maday is an important source of comfort for her. Continue duloxetine BID, she is also on risperidal. Psych meds have been being managed by a psych provider. Advance care planning: POLST is DNR, comfort care. Patient benefits from social interaction and activities that reinforce her worship maday. Recommend continuing palliative care wood flour miller support. Time Spent: 25 minutes were spent with more than 50% of the time spent on counseling, education, and coordination of care with facility staff.
== END 2018-12-15 13:26 | disposition home or self-care (01) ==
LOC: PC 13:25
PROVIDERS: ATTEND Nurse Practitioner
DX: Z51.5 Encounter for palliative care (principal); G54.6 Phantom limb syndrome with pain; M25.542 Pain in joints of left hand; M25.541 Pain in joints of right hand; M25.561 Pain in right knee; G47.00 Insomnia, unspecified; R53.1 Weakness; F32.9 Major depressive disorder, single episode, unspecified; Z79.899 Other long term (current) drug therapy; Z79.891 Long term (current) use of opiate analgesic; Z79.82 Long term (current) use of aspirin; Z89.612 Acquired absence of left leg above knee; Z87.440 Personal history of urinary (tract) infections; Z66 Do not resuscitate; Z96.0 Presence of urogenital implants; Z88.8 Allergy status to other drugs, medicaments and biological substances
CPT/HCPCS: 99309

== ENCOUNTER 2018-12-24 08:00 | Outpatient (CLI) | payer MEDICARE, MEDICAID ==
[2018-12-24 12:08] LABS: BILIRUBIN,URINE NEGATIVE (NEGATIVE); GLUCOSE, URINE (UA) NEGATIVE (NEGATIVE); KETONES,URINE (UA) NEGATIVE (NEGATIVE); LEUKOCYTE ESTERASE, URINE LARGE (NEGATIVE); NITRITE,URINE POSITIVE (NEGATIVE); OCCULT BLOOD,URINE SMALL (NEGATIVE); PROTEIN,URINE 30 mg/dL (NEGATIVE); UROBILINOGEN,URINE 0.2 (NORMAL) E.U./dL (NORMAL)
[2018-12-24 12:09] LABS: CLARITY,URINE HAZY (CLEAR)
[2018-12-24 12:22] LABS: AMORPHOUS SEDIMENT,UR Few /LPF; BACTERIA,URINE Few /HPF (None Seen); RBC,URINE 0-5 /HPF (0-5); SQUAMOUS EPITHELIAL CELL,UR FEW Squamous (<= Few)
== END 2018-12-24 23:59 | disposition home or self-care (01) ==
LOC: LAB.R 08:00
DX: N39.0 Urinary tract infection, site not specified (principal)
CPT/HCPCS: 81001; 81003; 87086

== ENCOUNTER 2018-12-29 09:45 | Outpatient (CLI) | payer MEDICARE, MEDICAID ==
[2018-12-29 18:03] LABS: BILIRUBIN,URINE NEGATIVE (NEGATIVE); GLUCOSE, URINE (UA) NEGATIVE (NEGATIVE); KETONES,URINE (UA) NEGATIVE (NEGATIVE); LEUKOCYTE ESTERASE, URINE LARGE (NEGATIVE); NITRITE,URINE POSITIVE (NEGATIVE); OCCULT BLOOD,URINE SMALL (NEGATIVE); PROTEIN,URINE NEGATIVE (NEGATIVE); UROBILINOGEN,URINE 0.2 (NORMAL) E.U./dL (NORMAL)
[2018-12-29 18:13] LABS: CLARITY,URINE HAZY (CLEAR)
[2018-12-29 18:14] LABS: BACTERIA,URINE Many /HPF (None Seen); EPITHELIAL CELLS,UR FEW Transitional /HPF (<= Few); SQUAMOUS EPITHELIAL CELL,UR RARE Squamous (<= Few)
== END 2018-12-29 23:59 | disposition home or self-care (01) ==
LOC: LAB.R 09:45
DX: N39.0 Urinary tract infection, site not specified (principal)
CPT/HCPCS: 81001; 81003; 87086

== ENCOUNTER 2019-01-13 23:15 | Outpatient (CLI) | payer MEDICARE, MEDICAID ==
[2019-01-13 23:47] LABS: ALBUMIN 2.8 g/dL (3.2-5.5); ALBUMIN/GLOBULIN RATIO 0.8 (1.0-2.2); ALKALINE PHOSPHATASE 40 IU/L (42-121); ALT ALANINE AMINOTRANSFERASE 22 IU/L (10-60); AST ASPARTATE AMINOTRANSFERASE 28 IU/L (10-42); BILIRUBIN,TOTAL < 0.2 mg/dL (0.2-1.0); BUN - BLOOD UREA NITROGEN 45 mg/dL (6-20); CARBON DIOXIDE - CO2 32 mmol/L (21-32); CHLORIDE 103 mmol/L (101-111); CREATININE 1.1 mg/dL (0.4-1.0); GFR - MDRD 49 (>89); GLUCOSE 100 mg/dL (70-100); SODIUM 142 mmol/L (135-145); TOTAL PROTEIN 6.4 g/dL (6.7-8.2)
== END 2019-01-13 23:59 | disposition home or self-care (01) ==
LOC: LAB.R 23:15
DX: N39.0 Urinary tract infection, site not specified (principal); E11.9 Type 2 diabetes mellitus without complications
CPT/HCPCS: 80053; 85025

== ENCOUNTER 2019-01-17 08:00 | Outpatient (CLI) | payer MEDICARE, MEDICAID ==
[2019-01-17 08:15] LABS: BASOPHILS % (AUTO) 0.7 %; EOSINOPHILS # (AUTO) 0.5 10^3/uL (0.0-0.7); EOSINOPHILS % (AUTO) 8.7 %; HGB - HEMOGLOBIN 11.1 g/dL (12.0-16.0); LYMPHOCYTES # (AUTO) 2.4 10^3/uL (1.5-3.5); LYMPHOCYTES % (AUTO) 39.8 %; MEAN CORPUSCULAR HEMOGLOBIN 26.9 pg (27.0-31.0); MEAN CORPUSCULAR HGB CONC 31.2 g/dL (32.0-36.0); MEAN CORPUSCULAR VOLUME 86.4 fL (81.0-99.0); MEAN PLATELET VOLUME 10.9 fL (7.9-10.8); MONOCYTES # (AUTO) 0.5 10^3/uL (0.0-1.0); MONOCYTES % (AUTO) 8.9 %; NEUTROPHILS # (AUTO) 2.5 10^3/uL (1.5-6.6); NEUTROPHILS % (AUTO) 41.6 %; PLT - PLATELET COUNT 220 10^3/uL (130-450); RED BLOOD COUNT 4.12 10^6/uL (4.20-5.40); RED CELL DISTRIBUTION WIDTH 14.6 % (12.0-15.0); WHITE BLOOD COUNT 6.1 x10^3/uL (4.8-10.8)
== END 2019-01-17 23:59 | disposition home or self-care (01) ==
LOC: LAB.R 08:00
DX: A41.9 Sepsis, unspecified organism (principal); G93.41 Metabolic encephalopathy
CPT/HCPCS: 85025

== ENCOUNTER 2019-02-05 23:55 | Outpatient (CLI) | payer MEDICARE, MEDICAID ==
[2019-02-06 03:21] LABS: BILIRUBIN,URINE NEGATIVE (NEGATIVE); GLUCOSE, URINE (UA) NEGATIVE (NEGATIVE); KETONES,URINE (UA) NEGATIVE (NEGATIVE); LEUKOCYTE ESTERASE, URINE LARGE (NEGATIVE); NITRITE,URINE POSITIVE (NEGATIVE); OCCULT BLOOD,URINE TRACE-INTA (NEGATIVE); PROTEIN,URINE NEGATIVE (NEGATIVE); UROBILINOGEN,URINE 0.2 (NORMAL) E.U./dL (NORMAL)
[2019-02-06 03:24] LABS: CLARITY,URINE CLEAR (CLEAR)
[2019-02-06 03:35] LABS: RBC,URINE None Seen /HPF (0-5)
[2019-02-06 03:36] LABS: AMORPHOUS SEDIMENT,UR Few /LPF; BACTERIA,URINE Moderate /HPF (None Seen); CRYSTALS,URINE 6-10 Triple Phos /LPF; SQUAMOUS EPITHELIAL CELL,UR RARE Squamous (<= Few)
== END 2019-02-05 23:59 | disposition home or self-care (01) ==
LOC: LAB.R 23:55
PROVIDERS: ATTEND Family Medicine
DX: N39.0 Urinary tract infection, site not specified (principal)
CPT/HCPCS: 81001; 81003; 87077; 87086; 87181

== ENCOUNTER 2019-06-14 11:30 | Outpatient (CLI) | payer MEDICARE, MEDICAID ==
[2019-06-14 15:53] LABS: BASOPHILS % (AUTO) 0.9 %; EOSINOPHILS # (AUTO) 0.3 10^3/uL (0.0-0.7); EOSINOPHILS % (AUTO) 6.2 %; HGB - HEMOGLOBIN 11.3 g/dL (12.0-16.0); LYMPHOCYTES # (AUTO) 1.2 10^3/uL (1.5-3.5); LYMPHOCYTES % (AUTO) 27.9 %; MEAN CORPUSCULAR HEMOGLOBIN 26.7 pg (27.0-31.0); MEAN CORPUSCULAR HGB CONC 30.7 g/dL (32.0-36.0); MEAN CORPUSCULAR VOLUME 86.8 fL (81.0-99.0); MEAN PLATELET VOLUME 11.6 fL (7.9-10.8); MONOCYTES # (AUTO) 0.4 10^3/uL (0.0-1.0); MONOCYTES % (AUTO) 9.2 %; NEUTROPHILS # (AUTO) 2.4 10^3/uL (1.5-6.6); NEUTROPHILS % (AUTO) 55.6 %; PLT - PLATELET COUNT 227 10^3/uL (130-450); RED BLOOD COUNT 4.24 10^6/uL (4.20-5.40); RED CELL DISTRIBUTION WIDTH 14.9 % (12.0-15.0); WHITE BLOOD COUNT 4.4 x10^3/uL (4.8-10.8)
[2019-06-14 16:03] LABS: ALBUMIN 3.2 g/dL (3.2-5.5); BILIRUBIN,TOTAL 0.5 mg/dL (0.2-1.0); CALCIUM 8.7 mg/dL (8.5-10.3); CREATININE 0.7 mg/dL (0.4-1.0); TOTAL PROTEIN 6.5 g/dL (6.7-8.2)
== END 2019-06-14 23:59 | disposition home or self-care (01) ==
LOC: LAB.R 11:30
PROVIDERS: ATTEND Family Medicine
DX: G93.41 Metabolic encephalopathy (principal); N17.9 Acute kidney failure, unspecified; E78.5 Hyperlipidemia, unspecified; E61.1 Iron deficiency
CPT/HCPCS: 80053; 82728; 85025

== ENCOUNTER 2019-08-18 16:00 | Outpatient (CLI) | payer MEDICARE, MEDICAID ==
[2019-08-18 18:12] LABS: BASOPHILS % (AUTO) 0.3 %; EOSINOPHILS # (AUTO) 0.1 10^3/uL (0.0-0.7); EOSINOPHILS % (AUTO) 0.8 %; HGB - HEMOGLOBIN 10.6 g/dL (12.0-16.0); LYMPHOCYTES # (AUTO) 1.4 10^3/uL (1.5-3.5); LYMPHOCYTES % (AUTO) 12.5 %; MEAN CORPUSCULAR HEMOGLOBIN 27.2 pg (27.0-31.0); MEAN CORPUSCULAR VOLUME 87.9 fL (81.0-99.0); MEAN PLATELET VOLUME 12.6 fL (7.9-10.8); MONOCYTES # (AUTO) 1.2 10^3/uL (0.0-1.0); MONOCYTES % (AUTO) 10.7 %; NEUTROPHILS # (AUTO) 8.2 10^3/uL (1.5-6.6); NEUTROPHILS % (AUTO) 74.9 %; PLT - PLATELET COUNT 237 10^3/uL (130-450); RED BLOOD COUNT 3.89 10^6/uL (4.20-5.40); RED CELL DISTRIBUTION WIDTH 14.6 % (12.0-15.0)
== END 2019-08-18 23:59 | disposition home or self-care (01) ==
LOC: LAB.R 16:00
DX: E11.36 Type 2 diabetes mellitus with diabetic cataract (principal); M62.82 Rhabdomyolysis; E86.0 Dehydration
CPT/HCPCS: 80053; 85025

== ENCOUNTER 2019-08-29 08:00 | Outpatient (CLI) | payer MEDICARE, MEDICAID ==
[2019-08-29 19:06] LABS: CALCIUM 8.3 mg/dL (8.5-10.3); CREATININE 0.8 mg/dL (0.4-1.0)
== END 2019-08-29 23:59 | disposition home or self-care (01) ==
LOC: LAB.R 08:00
PROVIDERS: ATTEND Family Medicine
DX: N17.9 Acute kidney failure, unspecified (principal); E56.9 Vitamin deficiency, unspecified
CPT/HCPCS: 80048

== ENCOUNTER 2019-09-17 13:40 | Outpatient (CLI) | payer MEDICARE, MEDICAID ==
[2019-09-17 14:48] LABS: CALCIUM 8.8 mg/dL (8.5-10.3); CREATININE 0.8 mg/dL (0.4-1.0)
== END 2019-09-17 23:59 | disposition home or self-care (01) ==
LOC: LAB.R 13:40
PROVIDERS: ATTEND Family Medicine
DX: E87.1 Hypo-osmolality and hyponatremia (principal)
CPT/HCPCS: 80048

== ENCOUNTER 2019-11-09 21:20 | Outpatient (CLI) | payer MEDICARE, MEDICAID ==
[2019-11-09 22:04] LABS: BASOPHILS % (AUTO) 0.4 %; EOSINOPHILS # (AUTO) 0.5 10^3/uL (0.0-0.7); EOSINOPHILS % (AUTO) 6.7 %; HGB - HEMOGLOBIN 10.5 g/dL (12.0-16.0); LYMPHOCYTES # (AUTO) 2.4 10^3/uL (1.5-3.5); LYMPHOCYTES % (AUTO) 33.8 %; MEAN CORPUSCULAR HEMOGLOBIN 27.9 pg (27.0-31.0); MEAN CORPUSCULAR HGB CONC 31.2 g/dL (32.0-36.0); MEAN CORPUSCULAR VOLUME 89.4 fL (81.0-99.0); MEAN PLATELET VOLUME 11.2 fL (7.9-10.8); MONOCYTES # (AUTO) 0.6 10^3/uL (0.0-1.0); MONOCYTES % (AUTO) 8.2 %; NEUTROPHILS # (AUTO) 3.6 10^3/uL (1.5-6.6); NEUTROPHILS % (AUTO) 50.8 %; PLT - PLATELET COUNT 217 10^3/uL (130-450); RED BLOOD COUNT 3.77 10^6/uL (4.20-5.40); RED CELL DISTRIBUTION WIDTH 15.4 % (12.0-15.0); WHITE BLOOD COUNT 7.2 x10^3/uL (4.8-10.8)
[2019-11-09 22:16] LABS: ALKALINE PHOSPHATASE 47 IU/L (42-121); ALT ALANINE AMINOTRANSFERASE < 10 IU/L (10-60); AST ASPARTATE AMINOTRANSFERASE 13 IU/L (10-42); BILIRUBIN,TOTAL 0.6 mg/dL (0.2-1.0); BUN - BLOOD UREA NITROGEN 30 mg/dL (6-20); CALCIUM 8.6 mg/dL (8.5-10.3); CARBON DIOXIDE - CO2 28 mmol/L (21-32); CHLORIDE 100 mmol/L (101-111); GLUCOSE 103 mg/dL (70-100); SODIUM 137 mmol/L (135-145); TOTAL PROTEIN 6.1 g/dL (6.7-8.2)
== END 2019-11-09 23:59 | disposition home or self-care (01) ==
LOC: LAB.R 21:20
PROVIDERS: ATTEND Family Medicine
DX: G93.41 Metabolic encephalopathy (principal); E87.8 Other disorders of electrolyte and fluid balance, not elsewhere classified; N17.9 Acute kidney failure, unspecified; G89.29 Other chronic pain; D64.9 Anemia, unspecified
CPT/HCPCS: 80053; 82728; 85025

== ENCOUNTER 2020-01-12 08:00 | Outpatient (CLI) | payer MEDICARE, MEDICAID ==
[2020-01-12 15:53] LABS: BASOPHILS # (AUTO) 0.1 10^3/uL (0.0-0.1); BASOPHILS % (AUTO) 0.9 %; EOSINOPHILS # (AUTO) 0.4 10^3/uL (0.0-0.7); EOSINOPHILS % (AUTO) 6.9 %; HGB - HEMOGLOBIN 12.3 g/dL (12.0-16.0); LYMPHOCYTES # (AUTO) 2.1 10^3/uL (1.5-3.5); LYMPHOCYTES % (AUTO) 38.4 %; MEAN CORPUSCULAR HEMOGLOBIN 26.8 pg (27.0-31.0); MEAN CORPUSCULAR VOLUME 86.5 fL (81.0-99.0); MEAN PLATELET VOLUME 11.2 fL (7.9-10.8); MONOCYTES # (AUTO) 0.4 10^3/uL (0.0-1.0); MONOCYTES % (AUTO) 7.1 %; NEUTROPHILS # (AUTO) 2.5 10^3/uL (1.5-6.6); NEUTROPHILS % (AUTO) 46.5 %; PLT - PLATELET COUNT 230 10^3/uL (130-450); RED BLOOD COUNT 4.59 10^6/uL (4.20-5.40); RED CELL DISTRIBUTION WIDTH 14.6 % (12.0-15.0); WHITE BLOOD COUNT 5.4 x10^3/uL (4.8-10.8)
[2020-01-12 16:19] LABS: ALBUMIN 3.3 g/dL (3.2-5.5); ALBUMIN/GLOBULIN RATIO 0.9 (1.0-2.2); BILIRUBIN,TOTAL 0.5 mg/dL (0.2-1.0); CALCIUM 9.1 mg/dL (8.5-10.3); CREATININE 0.8 mg/dL (0.4-1.0); TOTAL PROTEIN 6.8 g/dL (6.7-8.2)
[2020-01-12 20:16] LABS: HEMOGLOBIN A1c% 6.3 % (4.27-6.07)
== END 2020-01-12 23:59 | disposition home or self-care (01) ==
LOC: LAB.R 08:00
PROVIDERS: ATTEND Family Medicine
DX: E87.1 Hypo-osmolality and hyponatremia (principal); E11.9 Type 2 diabetes mellitus without complications; E86.0 Dehydration; J18.9 Pneumonia, unspecified organism
CPT/HCPCS: 80053; 82728; 83036; 85025

== ENCOUNTER 2020-01-17 08:00 | Outpatient (CLI) | payer MEDICARE, MEDICAID ==
[2020-01-17 21:18] LABS: BILIRUBIN,URINE NEGATIVE (NEGATIVE); GLUCOSE, URINE (UA) NEGATIVE (NEGATIVE); KETONES,URINE (UA) NEGATIVE (NEGATIVE); LEUKOCYTE ESTERASE, URINE LARGE (NEGATIVE); NITRITE,URINE POSITIVE (NEGATIVE); OCCULT BLOOD,URINE LARGE (NEGATIVE); PH,URINE 6.5 PH (5.0-7.5); PROTEIN,URINE NEGATIVE (NEGATIVE); UROBILINOGEN,URINE 0.2 (NORMAL) E.U./dL (NORMAL)
[2020-01-17 21:20] LABS: CLARITY,URINE HAZY (CLEAR)
[2020-01-17 21:24] LABS: BACTERIA,URINE Few /HPF (None Seen); RBC,URINE TNTC /HPF (0-5); SQUAMOUS EPITHELIAL CELL,UR RARE Squamous (<= Few)
== END 2020-01-17 23:59 | disposition home or self-care (01) ==
LOC: LAB.R 08:00
PROVIDERS: ATTEND Family Medicine
DX: N39.0 Urinary tract infection, site not specified (principal)
CPT/HCPCS: 81001; 81003; 87086

== ENCOUNTER 2020-01-24 08:00 | Outpatient (CLI) | payer MEDICARE, MEDICAID ==
[2020-01-24 23:04] LABS: BILIRUBIN,URINE NEGATIVE (NEGATIVE); GLUCOSE, URINE (UA) NEGATIVE (NEGATIVE); KETONES,URINE (UA) NEGATIVE (NEGATIVE); LEUKOCYTE ESTERASE, URINE LARGE (NEGATIVE); NITRITE,URINE POSITIVE (NEGATIVE); OCCULT BLOOD,URINE LARGE (NEGATIVE); PH,URINE 6.5 PH (5.0-7.5); PROTEIN,URINE NEGATIVE (NEGATIVE); UROBILINOGEN,URINE 0.2 (NORMAL) E.U./dL (NORMAL)
[2020-01-24 23:05] LABS: CLARITY,URINE HAZY (CLEAR)
[2020-01-24 23:11] LABS: BACTERIA,URINE Many /HPF (None Seen); SQUAMOUS EPITHELIAL CELL,UR MOD Squamous (<= Few)
== END 2020-01-24 23:59 | disposition home or self-care (01) ==
LOC: LAB.R 08:00
PROVIDERS: ATTEND Family Medicine
DX: N39.0 Urinary tract infection, site not specified (principal)
CPT/HCPCS: 81001; 81003; 87086

== ENCOUNTER 2020-02-13 14:15 | Outpatient (CLI) | payer MEDICARE, MEDICAID | END 2020-02-13 14:16 | disposition critical access hospital (66) | LOC: EMS 14:15 | PROVIDERS: ATTEND Surgery | DX: R40.20 Unspecified coma (principal) | CPT/HCPCS: A0425; A0429 ==

== ENCOUNTER 2020-02-13 14:21 | Inpatient (IN) | payer MEDICARE, MEDICAID ==
[2020-02-13] MEDS ORDERED: SODIUM CHLORIDE 0.9% 2,500 ML IV STA (14:32)
[2020-02-13] MEDS ORDERED: SODIUM CHLORIDE 0.9% 1,000 ML IV STA ×2 (14:33→16:46)
[2020-02-13] MEDS ORDERED: CIPROFLOXACIN 400 MG/200 ML 400 MG/200 ML BAG IV STA (14:34)
[2020-02-13] MEDS ORDERED: metroNIDAZOLE 500 MG/100 ML 500 MG/100 ML BAG IV ONE (14:34)
--- NOTE | 2020-02-13 15:03 | ED Physician Documentation ---
History of Present Illness - Stated complaint Stated Complaint: UNRESPONSIVE - Chief complaint Chief Complaint: Neuro - History obtained from History obtained from: EMS - History of Present Illness Timing: Yesterday Pain level max: 0 Pain level now: 0 - Additonal information Additional information: 74 year old female, DNR, comfort care, presents to the emergency department from [facility], they state that she has had decreased responsiveness over the past 2 days. History of suprapubic catheter. Recurrent pyelonephritis and urosepsis. Family was contacted due to decreased responsiveness and they would like her transported to the emergency department for treatment. The do not want pressors, central lines, intubation, CPR or surgery. They want her comfortable. They are fine with IVF, antibiotics and pain control. Review of Systems Unable to obtain: Unresponsive PD PAST MEDICAL HISTORY - Past Medical History Cardiovascular: Hypertension, High cholesterol Respiratory: Asthma, Pneumonia Neuro: Headaches, Peripheral neuropathy Endocrine/Autoimmune: Type 2 diabetes GI: GERD, C.difficile, Chronic constipation : Chronic bladder infection, Kidney stones, Other HEENT: Other Psych: Depression, Anxiety, Schizophrenia Musculoskeletal: Osteoarthritis, Chronic back pain, Other Derm: Other - Past Surgical History Past Surgical History: Yes General: Appendectomy, Colonoscopy, EGD Ortho: Carpal Tunnel surgery, Spine surgery, Amputation, Other /GOLF BALL TRIMMER: Hysterectomy, Other Cardiovascular: Other - Present Medications Home Medications: Ambulatory Orders Medication Instructions Recorded Confirmed Multivitamin [Multivitamins] 1 each PO DAILY 06/06/14 12/03/18 Potassium Chloride 10 meq PO DAILY 06/06/14 12/03/18 Losartan [Cozaar] 100 mg PO DAILY 02/14/17 12/03/18 tiZANidine [Zanaflex] 4 mg PO BID 02/14/17 12/03/18 Meclizine HCl [Motion Sickness 25 mg PO BID PRN 10/06/17 12/03/18 Relief] Melatonin 6 mg PO QPM 10/06/17 12/03/18 Pregabalin [Lyrica] 100 mg PO BID 10/06/17 12/03/18 polyethylene glycoL 3350 [Miralax] 17 gm PO DAILY 10/06/17 12/03/18 oxyCODONE [Roxicodone] 5 mg PO TID 02/13/18 12/03/18 Risperidone [Risperdal] 4 mg PO ACHS 05/05/18 12/03/18 oxyCODONE [Roxicodone] 5 mg PO Q4HR PRN 05/05/18 12/03/18 bisacodyL [Dulcolax] 5 mg PO DAILY PRN 07/14/18 12/03/18 Acetaminophen 500 mg PO Q6H PRN MDD 3000mg per 12/03/18 12/03/18 24 hours Albuterol Sulfate [Albuterol 2 puffs INH QID PRN 12/03/18 12/03/18 Sulfate Hfa] Aspirin [Aspirin EC] 81 mg PO DAILY 12/03/18 12/03/18 Biofreeze Gel 4% 1 ea TOP BID 12/03/18 Biofreeze Gel 4% 1 ea TOP BID PRN MDD on left stump 12/03/18 Calcium Carbonate 1 tab PO Q4H PRN 12/03/18 12/03/18 Calcium Carbonate 2 tab PO Q4H PRN 12/03/18 12/03/18 Duloxetine HCl [Cymbalta] 120 mg PO DAILY 12/03/18 12/03/18 Ferrous Gluconate 240 mg PO DAILY 12/03/18 12/03/18 Furosemide 20 mg PO DAILY 12/03/18 12/03/18 Hydroxyzine 25mg 25 mg PO Q6H PRN 12/03/18 Neomycin Cramer/Bacitrac Zn/Poly 1 ea TOP QID MDD until 12/10/18 12/03/18 12/03/18 [Triple Antibiotic Ointment] Nystatin 1 each TOP BID PRN 12/03/18 12/03/18 Pregabalin [Lyrica] 75 mg PO .QHS 12/03/18 12/03/18 Robitussin Pk Dold Day/Night 10 ml PO Q6H PRN 12/03/18 Senna [Senokot] 8.6 mg PO DAILY PRN 12/03/18 12/03/18 Verapamil HCl [Calan Sr] 120 mg PO DAILY 12/03/18 12/03/18 Medpass 2.0 120ml 120 ml PO TID 12/16/18 - Allergies Allergies/Adverse Reactions: Allergies Allergy/AdvReac Type Severity Reaction Status Date / Time erythromycin base Allergy Severe Anaphylaxis Verified 02/12/18 23:19 [Erythromycin Base] Penicillins Allergy Severe Anaphylaxis Verified 02/12/18 23:19 Sulfa (Sulfonamide Allergy Severe Redness/High Verified 02/12/18 23:19 Antibiotics) fever lisinopril Allergy Unknown Unknown Verified 02/12/18 23:19 ceftriaxone Allergy Rash Verified 02/12/18 23:19 quinidine Allergy Rash Verified 02/12/18 23:19 - Social History Does the pt smoke?: No Smoking Status: Never smoker Does the pt drink ETOH?: No Does the pt have substance abuse?: No - Immunizations Immunizations are current?: No Immunizations: TDAP >10years/unknown - POLST Patient has POLST: Yes POLST Status: DNR (Comfort measures only) PD ED PE NORMAL - Vitals Vital signs reviewed: Yes - General General: Other (Minimally responsive, occasionally moans, sweaty and pale) - HEENT HEENT: PERRL, Pharynx benign - Neck Neck: Supple, no meningeal sign - Cardiac Cardiac: RRR - Respiratory Respiratory: No respiratory distress, Other (Diminished breath sounds bilaterally with crackles) - Abdomen Abdomen: Soft, Other (Tender right upper quadrant.) - Back Back: No CVA TTP - Derm Derm: Warm and dry - Extremities Extremities: Other (Suprapubic catheter in place. Left AKA.) - Neuro Neuro: Other (Minimally responsive) Results - Vitals Vitals: Vital Signs - 24 hr 02/13/20 02/13/20 02/13/20 14:25 15:06 15:18 Temperature 36.1 C L 36.2 C L 36.6 C Heart Rate 96 90 91 Respiratory 30 H 30 H 29 H Rate Blood Pressure 72/54 L 112/52 L 115/64 O2 Saturation 95 93 95 02/13/20 15:47 Temperature Heart Rate 81 Respiratory 28 H Rate Blood Pressure 96/39 L O2 Saturation 96 Oxygen O2 Source Room air - Labs Labs: Laboratory Tests 02/13/20 02/13/20 02/13/20 14:38 14:38 14:38 WBC 21.9 H RBC 4.54 Hgb 12.4 Hct 38.5 MCV 84.8 MCH 27.3 MCHC 32.2 RDW 16.1 H Plt Count 203 MPV 11.4 H Neut # (Auto) Not Reportable Lymph # (Auto) Not Reportable [place] # (Auto) Not Reportable Eos # (Auto) Not Reportable Baso # (Auto) Not Reportable Absolute Nucleated RBC Not Reportable Total Counted 100 Band Neuts % (Manual) 4 Abnorm Lymph % (Manual) 0 Nucleated RBC % Not Reportable Neutrophils # (Manual) 18.6 H Lymphocytes # (Manual) 1.3 L Monocytes # (Manual) 2.0 H Eosinophils # (Manual) 0.0 Basophils # (Manual) 0.0 Differential Comment MANUAL DIFFERENTIAL Manual Slide Review Indicated Platelet Estimate NORMAL (130-450,000) Platelet Morphology NORMAL APPEARANCE RBC Morph Micro Appear . PT 15.6 H INR 1.4 H APTT 22.5 L Sodium 135 Potassium 4.7 Chloride 100 L Carbon Dioxide 25 Anion Gap 10.0 BUN 33 H Creatinine 1.5 H Estimated GFR (MDRD) 34 L Glucose 110 H Lactic Acid Calcium 9.3 Total Bilirubin 1.5 H AST 188 H ALT 311 H Alkaline Phosphatase 79 Total Protein 6.9 Albumin 3.1 L Globulin 3.8 Albumin/Globulin Ratio 0.8 L Lipase 19 L Urine Color Urine Clarity Urine pH Ur Specific Maybee Urine Protein Urine Glucose (UA) Urine Ketones Urine Occult Blood Urine Nitrite Urine Bilirubin Urine Urobilinogen Ur Leukocyte Esterase Urine RBC Urine WBC Urine WBC Clumps Ur Squamous Epith Cells Urine Bacteria Ur Microscopic Review Urine Culture Comments 02/13/20 02/13/20 14:38 16:20 WBC RBC Hgb Hct MCV MCH MCHC RDW Plt Count MPV Neut # (Auto) Lymph # (Auto) [place] # (Auto) Eos # (Auto) Baso # (Auto) Absolute Nucleated RBC Total Counted Band Neuts % (Manual) Abnorm Lymph % (Manual) Nucleated RBC % Neutrophils # (Manual) Lymphocytes # (Manual) Monocytes # (Manual) Eosinophils # (Manual) Basophils # (Manual) Differential Comment Manual Slide Review Platelet Estimate Platelet Morphology RBC Morph Micro Appear PT INR APTT Sodium Potassium Chloride Carbon Dioxide Anion Gap BUN Creatinine Estimated GFR (MDRD) Glucose Lactic Acid 2.4 H Calcium Total Bilirubin AST ALT Alkaline Phosphatase Total Protein Albumin Globulin Albumin/Globulin Ratio Lipase Urine Color YELLOW Urine Clarity HAZY Urine pH 7.0 Ur Specific [place] 1.015 Urine Protein 100 H Urine Glucose (UA) NEGATIVE Urine Ketones NEGATIVE Urine Occult Blood SMALL H Urine Nitrite POSITIVE H Urine Bilirubin NEGATIVE Urine Urobilinogen 1 (NORMAL) Ur Leukocyte Esterase LARGE H Urine RBC TNTC H Urine WBC >25 H Urine WBC Clumps PRESENT Ur Squamous Epith Cells NONE SEEN Urine Bacteria Many H Ur Microscopic Review INDICATED Urine Culture Comments INDICATED - Rads (name of study) RUQ Ultrasound Radiology: Prelim report reviewed, EMP read contemporaneously, See rad report (Gallbladder luminal stones without wall thickening most suggestive of cholecystitis with cholelithiasis. ) cxr Radiology: Prelim report reviewed, EMP read contemporaneously, See rad report (No acute pulmonary process. ) PD MEDICAL DECISION MAKING - ED course Complexity details: reviewed results, re-evaluated patient, considered differential, d/w family, d/w design center consultant ED course: 74-year-old female with sepsis, likely urosepsis in origin. Also appears to have cholecystitis. The family states she would not want any surgery or cholecystostomy tubes. We will trial IV fluids and IV antibiotics. Daughter at bedside. I also spoke with daughter Kira, by phone. Discussed the case with Dr. Warner, hospitalist who accepts. This document was made in part using voice recognition software. While efforts are made to proofread this document, sound alike and grammatical errors may occur. Departure - Departure Disposition: 66 [facility] DC/Xfer Clinical Impression: Need for comfort care UTI (urinary tract infection) Qualifiers: Urinary tract infection type: acute cystitis Hematuria presence: without hematuria Qualified Code(s): N30.00 - Acute cystitis without hematuria Sepsis Qualifiers: Sepsis type: sepsis due to unspecified organism Sepsis acute organ dysfunction status: unspecified Qualified Code(s): A41.9 - Sepsis, unspecified organism Condition: Poor Discharge Date/Time: 02/13/20 17:44
[2020-02-13 15:06] LABS: BASOPHILS % (AUTO) 0.3 %; EOSINOPHILS % (AUTO) 0.1 %; HGB - HEMOGLOBIN 12.4 g/dL (12.0-16.0); LYMPHOCYTES % (AUTO) 5.7 %; MEAN CORPUSCULAR HEMOGLOBIN 27.3 pg (27.0-31.0); MEAN CORPUSCULAR HGB CONC 32.2 g/dL (32.0-36.0); MEAN CORPUSCULAR VOLUME 84.8 fL (81.0-99.0); MEAN PLATELET VOLUME 11.4 fL (7.9-10.8); MONOCYTES % (AUTO) 6.4 %; NEUTROPHILS % (AUTO) 85.6 %; PLT - PLATELET COUNT 203 10^3/uL (130-450); RED BLOOD COUNT 4.54 10^6/uL (4.20-5.40); RED CELL DISTRIBUTION WIDTH 16.1 % (12.0-15.0); WHITE BLOOD COUNT 21.9 x10^3/uL (4.8-10.8)
[2020-02-13 15:17] LABS: ALBUMIN 3.1 g/dL (3.2-5.5); ALBUMIN/GLOBULIN RATIO 0.8 (1.0-2.2); BILIRUBIN,TOTAL 1.5 mg/dL (0.2-1.0); CALCIUM 9.3 mg/dL (8.5-10.3); CREATININE 1.5 mg/dL (0.4-1.0); TOTAL PROTEIN 6.9 g/dL (6.7-8.2)
[2020-02-13 15:21] LABS: INR 1.4 (0.8-1.2); PT - PROTHROMBIN TIME 15.6 secs (9.9-12.6)
[2020-02-13 15:22] LABS: ABNORMAL LYMPHS % (MANUAL) 0 %
[2020-02-13 15:29] LABS: PARTIAL THROMBOPLASTIN TIME 22.5 secs (24.9-33.3)
--- NOTE | 2020-02-13 15:36 | XRAY Report ---
PROCEDURE: Chest 1 View X-Ray INDICATIONS: fever, unresponsive TECHNIQUE: One view of the chest was acquired. COMPARISON: Chest x-ray 02/12/2018 FINDINGS: Surgical changes and devices: None. Lungs and pleura: No pleural effusions or pneumothorax. Lungs are clear. Mediastinum: Mediastinal contours appear normal. Heart size is normal. Bones and chest wall: No suspicious bony lesions. Overlying soft tissues appear unremarkable. IMPRESSION: No acute pulmonary process. Reviewed by: Radha Carrillo MD on 02/13/2020 3:35 PM PDT Approved by: Radha Carrillo MD on 02/13/2020 3:35 PM PDT Station ID: [id number]
[2020-02-13 15:39] LABS: BAND NEUTROPHILS % (MANUAL) 4 %; LYMPHOCYTES # (MANUAL) 1.3 10^3/uL (1.5-3.5); LYMPHOCYTES % (MANUAL) 6 %
[2020-02-13 15:41] LABS: DIFFERENTIAL COMMENT MANUAL DIFFERENTIAL; PLATELET ESTIMATE, MANUAL NORMAL (130-450,000) (NORMAL); PLATELET MORPHOLOGY NORMAL APPEARANCE (NORMAL)
[2020-02-13 16:29] LABS: BILIRUBIN,URINE NEGATIVE (NEGATIVE); GLUCOSE, URINE (UA) NEGATIVE (NEGATIVE); KETONES,URINE (UA) NEGATIVE (NEGATIVE); LEUKOCYTE ESTERASE, URINE LARGE (NEGATIVE); NITRITE,URINE POSITIVE (NEGATIVE); OCCULT BLOOD,URINE SMALL (NEGATIVE); PROTEIN,URINE 100 mg/dL (NEGATIVE); UROBILINOGEN,URINE 1 (NORMAL) E.U./dL (NORMAL)
--- NOTE | 2020-02-13 16:31 | Ultrasound Report ---
PROCEDURE: Abdomen Limited INDICATIONS: RUQ abd pain, TECHNIQUE: Real-time scanning was performed of the abdominal and retroperitoneal organs, with image documentatio n. COMPARISON: None. FINDINGS: Liver: Liver is enlarged measuring 18.8 cm with steatosis. Gallbladder: The gallbladder demonstrates multiple foci of mobile increased echogenicity. Wall is thi ckened measuring 5 mm. Biliary ducts: Intrahepatic bile ducts are non-dilated. Extrahepatic bile duct caliber measures 4 m m. Normal is 6-7 mm or less in diameter, or 10 mm or less post-cholecystectomy. Pancreas: Visualized portions of the pancreas are sonographically normal. Kidneys: Kidneys are normal in size and echotexture. Right kidney measures 9.5 cm long. No hydrone phrosis or nephrolithiasis. No solid masses. IVC: Intrahepatic inferior vena cava is patent. IMPRESSION: Gallbladder luminal stones without wall thickening most suggestive of cholecystitis with cholelithias is. Reviewed by: Radha Carrillo MD on 02/13/2020 4:29 PM PDT Approved by: Radha Carrillo MD on 02/13/2020 4:29 PM PDT Station ID: [id number]
[2020-02-13 16:35] LABS: CLARITY,URINE HAZY (CLEAR)
[2020-02-13 16:38] LABS: BACTERIA,URINE Many /HPF (None Seen); RBC,URINE TNTC /HPF (0-5); SQUAMOUS EPITHELIAL CELL,UR NONE SEEN (<= Few); WBC CLUMPS,URINE PRESENT
[2020-02-13] MEDS ORDERED: ONDANSETRON 4 MG/2 ML VIAL IVP PRN (16:55)
--- NOTE | 2020-02-13 19:45 | CONSULTATION NOTE ---
Consultation Report: Called for IV access after IV infiltration @B UE. Pt difficult to arouse, family at bedside. Attempt IV with US @L UE x3 attempts. Able to draw blood for lab but not thread cath for placment. Attempt x2@R UE with sucess at brachial vein. Easily flushes after cap placed with blood return prior. Secured with tape and tegaderm. Pt tolerated the procedure without complication.
[2020-02-13] MEDS: SODIUM CHLORIDE FLUSH 0.9% 10 ML SYRINGE IVP SCH ×2 (20:00→23:37)
[2020-02-13] MEDS: LACTATED RINGERS 1,000 ML IV SCH (20:00)
--- NOTE | 2020-02-13 20:56 | HISTORY & PHYSICAL EXAMINATION ---
Chief Complaint - Chief Complaint Chief Complaint: unrsponsiveness increasing x 2 days History of Present Illness - Admitted From Admitted From:: [facility] - History Obtained From Records Reviewed: Onel History obtained from: Onel and Dr. Morrow Exam Limitations: minimally responsive - History of Present Illness HPI Comment/Other: This unfortunate lady has been living at a alf for several years. Possibly since about 2012. Unclear. Her youngest daughter is here in the room but states that she does know a lot about her mom. At one point this daughter left home at the age of 12 to go live with a big sister, and then return to live with her mom at age 15. By then she was pretty independent and she and her mom live their own lives. Kira is the power of insurance processing clerk and the oldest daughter who knows the most. Due to her mental illness of paranoia and possible schizophrenia, as well as BKA, her oldest daughter was unable to take care of her and she was placed for permanent residence at a shelter facility. She has been living there since. She has been intermittently hospitalized in our healthcare system. She is followed by palliative care on a sporadic basis. The last time she was admitted was February 2018 for a UTI with sepsis resulting in severe metabolic encephalopathy, acute kidney failure. She had been brought to the emergency room after she was found on the floor in her room at the shelter facility. She had an unwitnessed fall out of her wheelchair and was found facedown on the floor, 90 degree angle, with her but still in the chair, face on the floor. The daughter states that the last time she saw mom was before July 2019. At that time mom was baseline with her mental illness. Alert, cheerful, and always happy to see her daughter. In visiting her mom today, she is sedated, cachectic, and where she is ever seen her. She has had decreasing responsiveness over the last 2 days. She does have a history of recurrent UTIs from a chronic indwelling suprapubic catheter. In April 2016 she had a right percutaneous nephrolithotomy for a large kidney stone. With this episode, the family was contacted, and they did want her transported to the emergency room for treatment. However, they do not want pressors, central lines, intubation, CPR, or surgery. They would like antibiotics, symptom control management. If she survives this, that is well in good and she can return to the shelter facility. If she does not they are comfortable with this. In the emergency room she was mildly hypothermic at 36.1. Blood pressure was low at 72/54. Respirations were 30 and she was 95% on room air. She was minimally responsive, occasionally moaning, sweaty, pale. She had a tender right upper quadrant. Diminished breath sounds bilaterally with crackles but no respiratory distress. A suprapubic catheter in place. A left AKA. Her white cell count was 21.9 thousand. 4% bands. BUN 33, creatinine 1.5. Lactic acid 2.4. In spite of of IV fluids, antibiotics, lactic acid is now 2.8. Her 2 IV lines have infiltrated and she has been seen by anesthesia to get an external jugular IV. Liver enzymes are elevated with a bili of 1.5, AST 188, ALT 311. Chest x-ray has no acute pulmonary process. Abdominal ultrasound has luminal stones without wall thickening and suggestive of cholecystitis with cholelithiasis. There are multiple foci within the gallbladder. Urinalysis has small amount of occult blood. Positive nitrites. Large amount of leukocyte Estrace. Too numerous to count red cells. Greater than 25 white cells. No squamous epithelial cells. Bacteria are seen. History - Past Medical History Cardiovascular: reports: Hypertension, High cholesterol Respiratory: reports: Asthma, Pneumonia Neuro: reports: Headaches, Peripheral neuropathy Endocrine/Autoimmune: reports: Type 2 diabetes GI: reports: GERD, C.difficile, Chronic constipation : reports: Chronic bladder infection, Kidney stones, Other HEENT: reports: Other Psych: reports: Depression, Anxiety, Schizophrenia Musculoskeletal: reports: Osteoarthritis, Chronic back pain, Other Derm: reports: Other MRSA Hx?: Yes - Past Surgical History General: reports: Appendectomy, Colonoscopy, EGD Ortho: reports: Carpal Tunnel surgery, Spine surgery, Amputation, Other /MARINE GEOLOGIST: reports: Hysterectomy, Other Cardiovascular: reports: Other - Family & Social History Family History: Mother: (age 68; age 74 reports pneumonia), Hypertension, Father: , Brother: Alive and Well (one brother cellulitis;06/20 passed per her report) Social History Notes: The patient [facility]. She has 4 daughters. She has been living on [facility] since 2012. Before that was in her own home in [place]. She had failed living on her own and needed daytime care and someone to go to appts and groceries. But one too many admits for sepsis w UTI resulted in inability to return to home. So moved here to be closer to one of her daughters. Lived with daughter for 3 months but then agreed to permanent SNF placement. Did well and adjusted to living there. Was social and went to facility activities, but 2 years ago, she started to get broken down by infection and multiple admits. More and more withdrawn. She states that she does not smoke tobacco, drink alcohol or use any illicit drugs. - Substance History Use: Uses substance without health or social issues: NONE - POLST Patient has POLST: Yes POLST Status: DNR (Comfort measures only) Meds/Allgy - Home Medications Home Medications: Ambulatory Orders Medication Instructions Recorded Confirmed Multivitamin [Multivitamins] 1 each PO DAILY 06/06/14 12/03/18 Potassium Chloride 10 meq PO DAILY 06/06/14 12/03/18 Losartan [Cozaar] 100 mg PO DAILY 02/14/17 12/03/18 tiZANidine [Zanaflex] 4 mg PO BID 02/14/17 12/03/18 Meclizine HCl [Motion Sickness 25 mg PO BID PRN 10/06/17 12/03/18 Relief] Melatonin 6 mg PO QPM 10/06/17 12/03/18 Pregabalin [Lyrica] 100 mg PO BID 10/06/17 12/03/18 polyethylene glycoL 3350 [Miralax] 17 gm PO DAILY 10/06/17 12/03/18 oxyCODONE [Roxicodone] 5 mg PO TID 02/13/18 12/03/18 Risperidone [Risperdal] 4 mg PO ACHS 05/05/18 12/03/18 oxyCODONE [Roxicodone] 5 mg PO Q4HR PRN 05/05/18 12/03/18 bisacodyL [Dulcolax] 5 mg PO DAILY PRN 07/14/18 12/03/18 Acetaminophen 500 mg PO Q6H PRN MDD 3000mg per 12/03/18 12/03/18 24 hours Albuterol Sulfate [Albuterol 2 puffs INH QID PRN 12/03/18 12/03/18 Sulfate Hfa] Aspirin [Aspirin EC] 81 mg PO DAILY 12/03/18 12/03/18 Biofreeze Gel 4% 1 ea TOP BID 12/03/18 Biofreeze Gel 4% 1 ea TOP BID PRN MDD on left stump 12/03/18 Calcium Carbonate 1 tab PO Q4H PRN 12/03/18 12/03/18 Calcium Carbonate 2 tab PO Q4H PRN 12/03/18 12/03/18 Duloxetine HCl [Cymbalta] 120 mg PO DAILY 12/03/18 12/03/18 Ferrous Gluconate 240 mg PO DAILY 12/03/18 12/03/18 Furosemide 20 mg PO DAILY 12/03/18 12/03/18 Hydroxyzine 25mg 25 mg PO Q6H PRN 12/03/18 Neomycin Cramer/Bacitrac Zn/Poly 1 ea TOP QID MDD until 12/10/18 12/03/18 12/03/18 [Triple Antibiotic Ointment] Nystatin 1 each TOP BID PRN 12/03/18 12/03/18 Pregabalin [Lyrica] 75 mg PO .QHS 12/03/18 12/03/18 Robitussin Pk Dold Day/Night 10 ml PO Q6H PRN 12/03/18 Senna [Senokot] 8.6 mg PO DAILY PRN 12/03/18 12/03/18 Verapamil HCl [Calan Sr] 120 mg PO DAILY 12/03/18 12/03/18 Medpass 2.0 120ml 120 ml PO TID 12/16/18 - Allergies Allergies/Adverse Reactions: Allergies Allergy/AdvReac Type Severity Reaction Status Date / Time erythromycin base Allergy Severe Anaphylaxis Verified 02/12/18 23:19 [Erythromycin Base] Penicillins Allergy Severe Anaphylaxis Verified 02/12/18 23:19 Sulfa (Sulfonamide Allergy Severe Redness/High Verified 02/12/18 23:19 Antibiotics) fever lisinopril Allergy Unknown Unknown Verified 02/12/18 23:19 ceftriaxone Allergy Rash Verified 02/12/18 23:19 quinidine Allergy Rash Verified 02/12/18 23:19 Review of Systems - All Other Systems All Other Systems: reports: Other (Unable to obtain review of systems. minim ally responsive.Improved slightly on the floor and that she now opens her eyes spontaneously, and utters 1 or 2 sentences. She denies any pain. In review of the chart, she is described as a frail, cachectic person who has chronic pain, paranoia) Prior Level of Functionality: In the past able to stand and pivot using right leg. Has not been able to do that for the last year. Completely dependent for activities of daily living at the shelter facility but is able to feed herself. Exam - Vital Signs Reviewed Vital Signs: Yes Vital Signs: Vital Signs x48h Temp Pulse Pulse Resp BP BP BP 02/13/20 20:31 37.3 C 81 24 75/42 L 02/13/20 18:19 02/13/20 18:00 35.9 C L 86 24 98/52 L 98/52 L 02/13/20 17:38 36.2 C L 86 26 H 95/58 L 02/13/20 15:47 81 28 H 96/39 L 02/13/20 15:18 36.6 C 91 29 H 115/64 02/13/20 15:06 36.2 C L 90 30 H 112/52 L 02/13/20 14:25 36.1 C L 96 30 H 72/54 L Pulse Ox 02/13/20 20:31 97 02/13/20 18:19 100 02/13/20 18:00 99 02/13/20 17:38 94 02/13/20 15:47 96 02/13/20 15:18 95 02/13/20 15:06 93 02/13/20 14:25 95 - Physical Exam General Appearance: positive: No acute distress, Other (Weight in September 2013 was 119 kg. June 1999> 109 kg. May 2015> 128 kg. In 2016 she varied between 95 to 110 kg. February 2018>104 kg. Today she is 81.5 kg.She is a pale, cachectic, lethargic elderly female, edentulous, laying on her back mouth open and looks startling already) Eyes Bilateral: positive: PERRL, EOMI ENT: positive: Dry mucous membranes, Other (edentualous) Neck: positive: No JVD, Lymphadenopathy (R) (shotty), Lymphadenopathy (L) (shotty). negative: Stiff neck Respiratory: positive: Chest non-tender, No respiratory distress, Other (slow, so shallow chest barely moves). negative: Wheezes, Rales, Rhonchi Cardiovascular: positive: Regular rate & rhythm, Systolic murmur. negative: Gallop/S4, Friction rub Peripheral Pulses: positive: 0 Abdomen: positive: Tenderness (RUQ and will exhibit facial grimace with exam), Abnml bowel sounds (minimal). negative: Hepatomegaly, Splenomegaly Skin: positive: Diaphoresis, Pallor, Other (cool to touch. Skin around Reyes, suprapubic catheter is macerated, slight oozing. She has Tawnya intertrigo of her intertriginous folds and perineal area.) Extremities: positive: Full ROM (on passive ROM, left BKA), No pedal edema Neurologic/Psychiatric: positive: CN's nml (2-12), Motor nml (except severe generalized weakness), Disoriented to person, Disoriented to place, Disoriented to time Sepsis Event Note (H) - Evaluation Current Stage of Sepsis: Septic shock Possible source of Sepsis: positive: GI tract/intra-abdominal - Sepsis Criteria Sepsis Criteria: Recorded Temperature greater than 38.3C or Less than 36C, R ecorded Respiratory Rate greater than 20, WBC count greater than 12,000 or less than 4000, AIRCRAFT INSTRUMENT TESTER: altered consciousness (unrelated to primary neuro pathology), SBP drop more than 40mHg, Metabolic: lactate > 2 mmol/L Conclusion/Plan - Problem List (1) Sepsis Conclusion/Plan: While she has acute cholecystitis, she also may have another urinary tract infection. Unfortunate this woman is probably chronically colonized so it is difficult to interpret the urinalysis. She is being treated with aztreonam and ciprofloxacin after reviewing her old microbiology specimens, and taking into account she is allergic to penicillin and sulfa. Plan: Inpatient status Continue antibiotics and IV fluids Family is already do mirroring at the idea of an external jugular but we carefully explained we have no other place to place IVs to give her treatment. Daughter who is in the room agreed to EJ placement by anesthesia. In spite of IV fluids and antibiotics, pressure is waxing and waning. She was able to go up in the emergency room and is coming back down again to 70 systolic. Family is not asking us to be more aggressive than we already are. Poor prognosis, will continue to treat with simple measures. Case discussed with her youngest daughter who is in the room. Also discussed with her power of insurance processing clerk daughter Kira. Kira is very firm about what she would like for her mom. Those wishes being honored. Qualifiers: Sepsis type: sepsis due to unspecified organism Sepsis acute organ dysfunction status: with acute organ dysfunction Severe sepsis acute organ dysfunction type: encephalopathy Severe sepsis shock status: with septic shock Qualified Code(s): A41.9 - Sepsis, unspecified organism; R65.21 - Severe sepsis with septic shock; G93.40 - Encephalopathy, unspecified (2) Acute on chronic renal failure Conclusion/Plan: In the past, with sepsis and UTI, her creatinine has bumped up to 4. It usually responded quite quickly to IV fluids. With this episode of hypotension, she may actually bump up her creatinine after resuscitative efforts. Plan: Labs in the morning. If she does not turn the corner by tomorrow morning, I would recommend that we stop labs. Qualifiers: Acute renal failure type: unspecified (3) Chronic indwelling Reyes catheter Conclusion/Plan: With chronic UTI and chronic colonization. That is being taken into account for treatment of above. (4) Candidal intertrigo Conclusion/Plan: Nystatin powder (5) Weight loss, abnormal Conclusion/Plan: She appears to have severe protein calorie malnutrition. Significant weight loss and review of the medical record. Plan: Nutrition services if appropriate (6) Peripheral neurogenic pain Conclusion/Plan: Associated with her feet, and her BKA. At this time she says she is comfortable. At the shelter facility she has Lyrica on her list. Plan: Resume comfort medications when appropriate and able to take. This will happen after we verify her med list through pharmacy. - Lab Results Lab results reviewed: Yes Fish Bones: 02/13/20 14:38 02/13/20 14:38 - Diagnostic Imaging Results Diagnostic Imaging Results: positive: Final report reviewed Diagnostic Imaging Results Comments: results noted in HPI Core Measures - Anticipated LOS I expect patient to be DC'd or transferred within 96 hours.: Yes - DVT/VTE - Prophylaxis VTE/DVT Device ordered at admit?: Yes
[2020-02-13] MEDS ORDERED: CIPROFLOXACIN 400 MG/200 ML 400 MG/200 ML BAG IV SCH (21:00)
[2020-02-13] MEDS: metroNIDAZOLE 500 MG/100 ML 500 MG/100 ML BAG IV SCH (21:28)
[2020-02-13] MEDS: NYSTATIN POWDER 15 GM TOP SCH (21:28)
[2020-02-13] MEDS: MIN OIL/DIMETHICON/COCONUT OIL 92 GM TUBE TOP PRN (21:28)
[2020-02-13] MEDS: HEPARIN 5,000 UNIT/ML VIAL SUBQ SCH (22:37)
[2020-02-13] MEDS: AZTREONAM 1 GM in SODIUM CHLORIDE 0.9% MINIBAG 100 ML IV SCH (22:38)
[2020-02-14] MEDS: SODIUM CHLORIDE FLUSH 0.9% 10 ML SYRINGE IVP PRN ×2 (03:16→08:00)
[2020-02-14 05:11] LABS: BASOPHILS # (AUTO) 0.1 10^3/uL (0.0-0.1); BASOPHILS % (AUTO) 0.2 %; EOSINOPHILS % (AUTO) 0.1 %; HGB - HEMOGLOBIN 10.6 g/dL (12.0-16.0); MEAN CORPUSCULAR HEMOGLOBIN 27.2 pg (27.0-31.0); MEAN CORPUSCULAR HGB CONC 31.6 g/dL (32.0-36.0); MEAN CORPUSCULAR VOLUME 86.1 fL (81.0-99.0); MEAN PLATELET VOLUME 11.5 fL (7.9-10.8); MONOCYTES # (AUTO) 1.3 10^3/uL (0.0-1.0); MONOCYTES % (AUTO) 6.6 %; NEUTROPHILS # (AUTO) 16.8 10^3/uL (1.5-6.6); PLT - PLATELET COUNT 182 10^3/uL (130-450); RED BLOOD COUNT 3.89 10^6/uL (4.20-5.40); RED CELL DISTRIBUTION WIDTH 16.3 % (12.0-15.0); WHITE BLOOD COUNT 20.1 x10^3/uL (4.8-10.8)
[2020-02-14 05:27] LABS: ALBUMIN 2.6 g/dL (3.2-5.5); BILIRUBIN,DIRECT 0.4 mg/dL (0.1-0.5); BILIRUBIN,TOTAL 1.3 mg/dL (0.2-1.0); CALCIUM 8.4 mg/dL (8.5-10.3); CREATININE 1.6 mg/dL (0.4-1.0); PHOSPHORUS 3.9 mg/dL (2.5-4.6)
[2020-02-14] MEDS ORDERED: WATER FOR INJECTION,STERILE 10 ML ONE (05:35)
[2020-02-14 05:40] LABS: PLATELET ESTIMATE, MANUAL NORMAL (130-450,000) (NORMAL); PLATELET MORPHOLOGY NORMAL APPEARANCE (NORMAL); RBC MORPHOLOGY (MULTIPLE) NORMAL APPEARANCE (NORMAL)
[2020-02-14] MEDS: AZTREONAM 1 GM in SODIUM CHLORIDE 0.9% MINIBAG 100 ML IV SCH ×3 (05:46→21:58)
[2020-02-14] MEDS: metroNIDAZOLE 500 MG/100 ML 500 MG/100 ML BAG IV SCH ×3 (06:51→23:04)
[2020-02-14] MEDS: LACTATED RINGERS 1,000 ML IV SCH (06:52)
[2020-02-14] MEDS: SODIUM CHLORIDE 0.9% 1,000 ML IV SCH (11:17)
[2020-02-14] MEDS: HEPARIN 5,000 UNIT/ML VIAL SUBQ SCH ×2 (11:24→21:58)
[2020-02-14] MEDS: ACETAMINOPHEN 325 MG TABLET PO PRN (11:28)
[2020-02-14] MEDS: SODIUM CHLORIDE FLUSH 0.9% 10 ML SYRINGE IVP SCH ×2 (11:32→17:11)
[2020-02-14] MEDS: NYSTATIN POWDER 15 GM TOP SCH ×2 (11:41→21:58)
--- NOTE | 2020-02-14 11:57 | PHARMACY PROGRESS NOTE ---
- Best Possible Medication History Admit Date and Time: 02/13/20 3958 Processed by: Pharmacy Medication History completed: Yes Patient Interview: Pt unable to participate Secondary Source(s): Facility MAR as ONLY source As the person ultimately responsible for medication therapy, providers are able to order a medication from an existing home medication list in [facility] via the "Reconcile Routine" prior to Confirmation of that medication by home support worker. Such practice is discouraged except when the physician, in their clinical judgment, deems that a medical need exists for a medication without regard to previous use.
[2020-02-14] MEDS: PANTOPRAZOLE 40 MG TABLET PO SCH (13:23)
--- NOTE | 2020-02-14 16:14 | PROVIDER PROGRESS NOTE ---
Assessment/Plan - Problem List (1) Sepsis Qualifiers: Sepsis type: sepsis due to unspecified organism Sepsis acute organ dysfunction status: with acute organ dysfunction Severe sepsis acute organ dysfunction type: encephalopathy Severe sepsis shock status: with septic shock Qualified Code(s): A41.9 - Sepsis, unspecified organism; R65.21 - Severe sepsis with septic shock; G93.40 - Encephalopathy, unspecified Assessment/Plan: 106,clinically pt was Improved. Patient was talking with me in the morning, she was comfortable laying in the bed. Patient also request to have diet. but her WBC is still at 20, and BP is around 100/50.Discussed the care plan with the patient's daughter in the bedside, Continue treat patient with antibiotics and intravenous IV fluids to see patient response, and care plan as they discussed with another provider in the night. she has acute cholecystitis, she also may have another urinary tract infection. pt has chronic indwelling urinary catheter. continue aztreonam and Flagyl. (2) Acute on chronic renal failure Creatinine 1.6, slightly increases from 1.50 yesterday. 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 (3) Chronic indwelling Reyes catheter Conclusion/Plan: Patient has chronic indwelling Reyes catheter With chronic UTI and chronic colonization. Continue antibiotics treatment (4) Candidal intertrigo Conclusion/Plan: Nystatin powder (5) Weight loss, abnormal Since patient clinically improved. will have Nutrition services (6) Peripheral neurogenic pain Conclusion/Plan: stable, she is comfortable. continue home meds. - Current Meds Current Meds: Current Medications Generic Name Dose Route Start Last Admin Trade Name Freq PRN Reason Stop Dose Admin Acetaminophen 650 mg 02/13/20 16:55 02/14/20 11:28 Tylenol PO 650 mg Q4HR PRN Administration Pain 1 to 4 Heparin Sodium (Porcine) 5,000 unit 02/13/20 21:00 02/14/20 11:24 SUBQ 5,000 unit BID JEAN Administration Metronidazole 500 mg in 100 mls @ 100 mls/hr 02/13/20 22:00 02/14/20 15:44 Flagyl 500 Mg/100 Ml IV Infused Q8H JEAN Infusion Sodium Chloride 1,000 mls @ 100 mls/hr 02/14/20 10:00 02/14/20 15:44 Normal Saline 0.9% IV 02/15/20 05:59 100 mls/hr .Q10H JEAN Infusion Aztreonam 1 gm/ Sodium 100 mls @ 100 mls/hr 02/14/20 14:00 02/14/20 14:35 Chloride IV Infused TID JEAN Infusion Mineral Oil 1 applic 02/13/20 19:58 02/13/20 21:28 Cavilon TOP 1 applic PRN PRN Administration Skin Care Nystatin 1 applic 02/13/20 22:00 02/14/20 11:41 Nystop TOP 1 applic BID JEAN Administration Ondansetron HCl 4 mg 02/13/20 16:55 02/14/20 03:16 Zofran Inj IVP 4 mg Q6HR PRN Administration Nausea / Vomiting Pantoprazole Sodium 40 mg 02/14/20 13:00 02/14/20 13:23 Protonix PO 40 mg QDAC JEAN Administration Sodium Chloride 10 ml 02/13/20 16:55 02/14/20 08:00 Normal Saline Flush 0.9% IVP 10 ml PRN PRN Administration NEEDED PER PROVIDER ORDERS Sodium Chloride 10 ml 02/13/20 17:00 02/14/20 11:32 Normal Saline Flush 0.9% IVP Not Given 0100,0900,1700 JEAN - Lab Result Fish Bone Diagrams: 02/14/20 04:55 02/14/20 04:55 - Additional Planning My Orders: My Active Orders 02/14/20 10:00 Sodium Chloride 0.9% [Normal Saline 0.9%] 1,000 ml IV 100 mls/hr 02/14/20 10:23 Miscellaenous Nursing Order [RC] PRN 02/14/20 Lunch Dysphagia Puree Diet [DIET] 02/14/20 13:00 Pantoprazole [Protonix] 40 mg PO QDAC 02/14/20 16:07 LACTIC ACID, VENOUS [CHEM] Routine Subjective - Subjective Patient Reports: Feeling Better Objective Vital Signs: Vital Signs - 24 hr 02/13/20 02/13/20 02/13/20 17:38 18:00 18:19 Temperature 36.2 C L 35.9 C L Heart Rate 86 Heart Rate [ 86 Radial] Respiratory 26 H 24 Rate Blood Pressure 95/58 L Blood Pressure [Left Brachial artery] Blood Pressure 98/52 L [Right Ankle] Blood Pressure 98/52 L [Right Brachial artery] O2 Saturation 94 99 100 02/13/20 02/14/20 02/14/20 20:31 00:15 08:00 Temperature 37.3 C 36.1 C L 37.3 C Heart Rate Heart Rate [ 81 55 L 86 Radial] Respiratory 24 20 22 Rate Blood Pressure Blood Pressure 100/50 L 100/50 L [Left Brachial artery] Blood Pressure 75/42 L [Right Ankle] Blood Pressure [Right Brachial artery] O2 Saturation 97 100 99 Oxygen O2 Source Nasal cannula I&O (Last 24 Hrs): Intake and Output Totals x24h 02/12/20 02/13/20 02/14/20 23:59 23:59 23:59 Intake Total 3655 1808.333 Output Total 300 200 Balance 3355 1608.333 General: Alert, No acute distress HEENT: Atraumatic Neck: Supple Lymphatic: no adenopathy Neuro: Alert, Non Focal Cardiovascular: Regular rate, Normal S1, Normal S2 Respiratory: Chest non-tender, No respiratory distress Abdomen: Normal bowel sounds, Soft, No tenderness Extremities: Normal pulses - Results Results: Laboratory Results WBC 20.1 x10^3/uL (4.8-10.8) H 02/14/20 04:55 RBC 3.89 10^6/uL (4.20-5.40) L 02/14/20 04:55 Hgb 10.6 g/dL (12.0-16.0) L 02/14/20 04:55 Hct 33.5 % (37.0-47.0) L 02/14/20 04:55 MCV 86.1 fL (81.0-99.0) 02/14/20 04:55 MCH 27.2 pg (27.0-31.0) 02/14/20 04:55 MCHC 31.6 g/dL (32.0-36.0) L 02/14/20 04:55 RDW 16.3 % (12.0-15.0) H 02/14/20 04:55 Plt Count 182 10^3/uL (130-450) 02/14/20 04:55 MPV 11.5 fL (7.9-10.8) H 02/14/20 04:55 Neut # (Auto) 16.8 10^3/uL (1.5-6.6) H 02/14/20 04:55 Lymph # (Auto) 1.0 10^3/uL (1.5-3.5) L 02/14/20 04:55 [place] # (Auto) 1.3 10^3/uL (0.0-1.0) H 02/14/20 04:55 Eos # (Auto) 0.0 10^3/uL (0.0-0.7) 02/14/20 04:55 Baso # (Auto) 0.1 10^3/uL (0.0-0.1) 02/14/20 04:55 Absolute Nucleated RBC 0.00 x10^3/uL 02/14/20 04:55 Total Counted 100 02/13/20 14:38 Band Neuts % (Manual) 4 % (0-10) 02/13/20 14:38 Abnorm Lymph % (Manual) 0 % 02/13/20 14:38 Nucleated RBC % 0.0 /100WBC 02/14/20 04:55 Neutrophils # (Manual) 18.6 10^3/uL (1.5-6.6) H 02/13/20 14:38 Lymphocytes # (Manual) 1.3 10^3/uL (1.5-3.5) L 02/13/20 14:38 Monocytes # (Manual) 2.0 10^3/uL (0.0-1.0) H 02/13/20 14:38 Eosinophils # (Manual) 0.0 10^3/uL (0-0.7) 02/13/20 14:38 Basophils # (Manual) 0.0 10^3/uL (0-0.1) 02/13/20 14:38 Differential Comment MANUAL DIFFERENTIAL 02/13/20 14:38 Manual Slide Review Indicated 02/14/20 04:55 Platelet Estimate NORMAL (130-450,000) (NORMAL) 02/14/20 04:55 Platelet Morphology NORMAL APPEARANCE (NORMAL) 02/14/20 04:55 RBC Morph Micro Appear NORMAL APPEARANCE (NORMAL) 02/14/20 04:55 PT 15.6 secs (9.9-12.6) H 02/13/20 14:38 INR 1.4 (0.8-1.2) H 02/13/20 14:38 APTT 22.5 secs (24.9-33.3) L 02/13/20 14:38 Sodium 136 mmol/L (135-145) 02/14/20 04:55 Potassium 4.2 mmol/L (3.5-5.0) 02/14/20 04:55 Chloride 106 mmol/L (101-111) 02/14/20 04:55 Carbon Dioxide 21 mmol/L (21-32) 02/14/20 04:55 Anion Gap 9.0 (6-13) 02/14/20 04:55 BUN 41 mg/dL (6-20) H 02/14/20 04:55 Creatinine 1.6 mg/dL (0.4-1.0) H 02/14/20 04:55 Estimated GFR (MDRD) 31 (>89) L 02/14/20 04:55 Glucose 96 mg/dL (70-100) 02/14/20 04:55 Lactic Acid 2.8 mmol/L (0.5-2.2) H 02/13/20 18:00 Calcium 8.4 mg/dL (8.5-10.3) L 02/14/20 04:55 Phosphorus 3.9 mg/dL (2.5-4.6) 02/14/20 04:55 Magnesium 2.0 mg/dL (1.7-2.8) 02/14/20 04:55 Total Bilirubin 1.3 mg/dL (0.2-1.0) H 02/14/20 04:55 Direct Bilirubin 0.4 mg/dL (0.1-0.5) 02/14/20 04:55 AST 77 IU/L (10-42) H 02/14/20 04:55 ALT 199 IU/L (10-60) H 02/14/20 04:55 Alkaline Phosphatase 58 IU/L (42-121) 02/14/20 04:55 Total Protein 6.0 g/dL (6.7-8.2) L 02/14/20 04:55 Albumin 2.6 g/dL (3.2-5.5) L 02/14/20 04:55 Globulin 3.4 g/dL (2.1-4.2) 02/14/20 04:55 Albumin/Globulin Ratio 0.8 (1.0-2.2) L 10/05/20 14:38 Lipase 19 U/L (22-51) L 02/13/20 14:38 Urine Color YELLOW 02/13/20 16:20 Urine Clarity HAZY (CLEAR) 02/13/20 16:20 Urine pH 7.0 PH (5.0-7.5) 02/13/20 16:20 Ur Specific [place] 1.015 (1.002-1.030) 02/13/20 16:20 Urine Protein 100 mg/dL (NEGATIVE) H 02/13/20 16:20 Urine Glucose (UA) NEGATIVE mg/dL (NEGATIVE) 02/13/20 16:20 Urine Ketones NEGATIVE mg/dL (NEGATIVE) 02/13/20 16:20 Urine Occult Blood SMALL (NEGATIVE) H 02/13/20 16:20 Urine Nitrite POSITIVE (NEGATIVE) H 02/13/20 16:20 Urine Bilirubin NEGATIVE (NEGATIVE) 02/13/20 16:20 Urine Urobilinogen 1 (NORMAL) E.U./dL (NORMAL) 02/13/20 16:20 Ur Leukocyte Esterase LARGE (NEGATIVE) H 02/13/20 16:20 Urine RBC TNTC /HPF (0-5) H 02/13/20 16:20 Urine WBC >25 /HPF (0-5) H 02/13/20 16:20 Urine WBC Clumps PRESENT 02/13/20 16:20 Ur Squamous Epith Cells NONE SEEN (<= Few) 02/13/20 16:20 Urine Bacteria Many /HPF (None Seen) H 02/13/20 16:20 Ur Microscopic Review INDICATED 02/13/20 16:20 Urine Culture Comments INDICATED 02/13/20 16:20 - Procedures Procedures: Procedures CONTINUOUS INVASIVE MECHANICAL VENTILATION <96 CONSEC HRS (09/29/13) INSERT ENDOTRACHEAL TUBE (09/29/13) INSERT GASTRIC TUBE NEC (09/29/13) INSERTION OF INFUSION DEV INTO SUP VENA CAVA, PERC APPROACH (02/14/17) REPLACE CYSTOSTOMY TUBE (06/12/14) RETROGRADE PYELOGRAM (06/12/14) TU BLADDER CLEARANCE (06/12/14) VENOUS CATHETERIZATION NEC (09/29/13) Sepsis Event Note (H) - Evaluation Current Stage of Sepsis: Septic shock Possible source of Sepsis: positive: GI tract/intra-abdominal - Sepsis Criteria Sepsis Criteria: Recorded Temperature greater than 38.3C or Less than 36C, Recorded Respiratory Rate greater than 20, WBC count greater than 12,000 or less than 4000, SUPER[employer]OR MALTED MILK: altered consciousness (unrelated to primary neuro pathology), SBP drop more than 40mHg, Metabolic: lactate > 2 mmol/L ABX Reporting Has patient been on IV antibiotics over the past 48 hours?: Yes Current Medications - Current Medications Current Medications: Active Medications Acetaminophen (Tylenol) 650 mg PO Q4HR PRN PRN Reason: Pain 1 to 4 Last Admin: 02/14/20 11:28 Dose: 650 mg Documented by: Docusate Sodium (Colace 250mg Capsule) 250 - 500 mg PO DAILY [facility] Heparin Sodium (Porcine) () 5,000 unit SUBQ BID [facility] Last Admin: 02/14/20 11:24 Dose: 5,000 unit Documented by: Metronidazole (Flagyl 500 Mg/100 Ml) 500 mg in 100 mls @ 100 mls/hr IV Q8H [facility] Last Infusion: 02/14/20 15:44 Dose: Infused Documented by: Sodium Chloride (Normal Saline 0.9%) 1,000 mls @ 100 mls/hr IV .Q10H [facility] Stop: 02/15/20 05:59 Last Infusion: 02/14/20 15:44 Dose: 100 mls/hr Documented by: Aztreonam 1 gm/ Sodium (Chloride) 100 mls @ 100 mls/hr IV TID [facility] Last Infusion: 02/14/20 14:35 Dose: Infused Documented by: Mineral Oil (Cavilon) 1 applic TOP PRN PRN PRN Reason: Skin Care Last Admin: 02/13/20 21:28 Dose: 1 applic Documented by: Nystatin (Nystop) 1 applic TOP BID [facility] Last Admin: 02/14/20 11:41 Dose: 1 applic Documented by: Ondansetron HCl (Zofran Inj) 4 mg IVP Q6HR PRN PRN Reason: Nausea / Vomiting Last Admin: 02/14/20 03:16 Dose: 4 mg Documented by: Pantoprazole Sodium (Protonix) 40 mg PO QDAC [facility] Last Admin: 02/14/20 13:23 Dose: 40 mg Documented by: Polyethylene Glycol (Miralax) 17 gm PO DAILY [facility] Saccharomyces Boulardii (Florastor) 250 mg PO BIDWM [facility] Senna (Senokot) 8.6 - 17.2 mg PO DAILY [facility] Sodium Chloride (Normal Saline Flush 0.9%) 10 ml IVP PRN PRN PRN Reason: NEEDED PER PROVIDER ORDERS Last Admin: 02/14/20 08:00 Dose: 10 ml Documented by: Sodium Chloride (Normal Saline Flush 0.9%) 10 ml IVP 0100,0900,1700 JEAN Last Admin: 02/14/20 11:32 Dose: Not Given Documented by: Potassium Chloride 10 meq PO DAILY 06/06/14 Losartan [Cozaar] 100 mg PO DAILY 02/14/17 tiZANidine [Zanaflex] 4 mg PO BID 02/14/17 Melatonin 6 mg PO QPM 10/06/17 Pregabalin [Lyrica] 100 mg PO TID 10/06/17 polyethylene glycoL 3350 [Miralax] 17 gm PO DAILY 10/06/17 oxyCODONE [Roxicodone] 5 mg PO TID 02/13/18 Risperidone [Risperdal] 4 mg PO ACHS 05/05/18 oxyCODONE [Roxicodone] 5 mg PO Q4HR PRN 05/05/18 bisacodyL [Dulcolax] 5 mg PO DAILY PRN 07/14/18 Acetaminophen 500 mg PO Q6H PRN MDD 3000mg per 24 hours 12/03/18 Albuterol Sulfate [Albuterol Sulfate Hfa] 2 puffs INH Q8H PRN 12/03/18 Aspirin [Aspirin EC] 81 mg PO DAILY 12/03/18 Biofreeze Gel 4% 1 ea TOP BID PRN MDD on left stump 12/03/18 Duloxetine HCl [Cymbalta] 120 mg PO DAILY 12/03/18 Ferrous Gluconate 240 mg PO DAILY 12/03/18 Furosemide 20 mg PO DAILY 12/03/18 Nystatin 1 applic TOP BID PRN 12/03/18 Senna [Senokot] 8.6 mg PO BID 12/03/18 Verapamil HCl [Calan Sr] 120 mg PO DAILY 12/03/18 Magnesium Hydroxide [Milk of Magnesia] 30 ml PO Q24H PRN 02/14/20
[2020-02-14] MEDS: SACCHAROMYCES BOULARDII 250 MG CAPSULE PO SCH (17:11)
[2020-02-15] MEDS: MIN OIL/DIMETHICON/COCONUT OIL 92 GM TUBE TOP PRN ×2 (00:30→03:50)
[2020-02-15] MEDS: SODIUM CHLORIDE 0.9% 1,000 ML IV SCH ×3 (01:05→19:16)
[2020-02-15] MEDS: SODIUM CHLORIDE FLUSH 0.9% 10 ML SYRINGE IVP SCH ×3 (01:06→17:27)
[2020-02-15] MEDS: AZTREONAM 1 GM in SODIUM CHLORIDE 0.9% MINIBAG 100 ML IV SCH (05:23)
[2020-02-15] MEDS: PANTOPRAZOLE 40 MG TABLET PO SCH (05:29)
[2020-02-15 05:53] LABS: ALBUMIN 2.5 g/dL (3.2-5.5); BILIRUBIN,DIRECT 0.2 mg/dL (0.1-0.5); BILIRUBIN,TOTAL 0.7 mg/dL (0.2-1.0); CALCIUM 8.1 mg/dL (8.5-10.3); CREATININE 0.9 mg/dL (0.4-1.0); MAGNESIUM 1.8 mg/dL (1.7-2.8); PHOSPHORUS 2.2 mg/dL (2.5-4.6); TOTAL PROTEIN 5.8 g/dL (6.7-8.2)
[2020-02-15 05:59] LABS: BASOPHILS % (AUTO) 0.3 %; EOSINOPHILS % (AUTO) 0.7 %; LYMPHOCYTES % (AUTO) 6.6 %; MEAN CORPUSCULAR HEMOGLOBIN 27.2 pg (27.0-31.0); MEAN CORPUSCULAR HGB CONC 30.5 g/dL (32.0-36.0); MEAN CORPUSCULAR VOLUME 89.1 fL (81.0-99.0); MEAN PLATELET VOLUME 11.4 fL (7.9-10.8); MONOCYTES % (AUTO) 6.1 %; NEUTROPHILS % (AUTO) 85.5 %; PLT - PLATELET COUNT 177 10^3/uL (130-450); RED BLOOD COUNT 3.68 10^6/uL (4.20-5.40); RED CELL DISTRIBUTION WIDTH 16.6 % (12.0-15.0); WHITE BLOOD COUNT 20.2 x10^3/uL (4.8-10.8)
[2020-02-15 06:01] LABS: ABNORMAL LYMPHS % (MANUAL) 0 %
[2020-02-15 06:17] LABS: BAND NEUTROPHILS % (MANUAL) 3 %; LYMPHOCYTES % (MANUAL) 10 %; MONOCYTES # (MANUAL) 0.6 10^3/uL (0.0-1.0)
[2020-02-15 06:18] LABS: DIFFERENTIAL COMMENT MANUAL DIFFERENTIAL; PLATELET ESTIMATE, MANUAL NORMAL (130-450,000) (NORMAL); RBC MORPHOLOGY (MULTIPLE) NORMAL APPEARANCE (NORMAL)
[2020-02-15] MEDS: metroNIDAZOLE 500 MG/100 ML 500 MG/100 ML BAG IV SCH (06:27)
[2020-02-15] MEDS ORDERED: POTASSIUM CHLORIDE 20 MEQ TABLET PO ONE (07:50)
[2020-02-15] MEDS ORDERED: SODIUM CHLORIDE 0.9% 1,000 ML IV SCH (08:00)
[2020-02-15] MEDS: NEUTRA-PHOS 250 MG TABLET PO SCH ×3 (08:15→17:26)
[2020-02-15] MEDS: SACCHAROMYCES BOULARDII 250 MG CAPSULE PO SCH ×2 (08:15→17:27)
[2020-02-15] MEDS: HEPARIN 5,000 UNIT/ML VIAL SUBQ SCH ×2 (08:15→21:53)
[2020-02-15] MEDS: polyethylene glycoL 3350 17 GM PACKET PO SCH (08:31)
[2020-02-15] MEDS: SENNA 8.6 MG TABLET PO SCH (08:31)
[2020-02-15] MEDS: DOCUSATE SODIUM 250 MG CAPSULE PO SCH (08:31)
[2020-02-15] MEDS: NYSTATIN POWDER 15 GM TOP SCH ×2 (08:36→21:57)
[2020-02-15] MEDS: CALCIUM CARBONATE CHEW 500 MG TABLET PO SCH ×2 (11:01→21:53)
[2020-02-15] MEDS ORDERED: FOSFOMYCIN TROMETHAMINE 3 GM PACKET PO ONE (12:00)
[2020-02-15] MEDS ORDERED: VANCOMYCIN INJ 1 GM, VANCOMYCIN INJ 500 MG in SODIUM CHLORIDE 0.9% 500 ML IV SCH (12:30)
[2020-02-15] MEDS: ACETAMINOPHEN 325 MG TABLET PO PRN (12:31)
--- NOTE | 2020-02-15 17:15 | PROVIDER PROGRESS NOTE ---
Subjective - Prog Note Date Prog Note Date: 02/15/20 - Subjective Pt reports feeling: Worse Subjective: Patient had a spotted fever on last night. Patient lost appetite, and Did not eat anything. Mental status also became worse, did not answer question. Patient's daughter DPOA state she hope Patient continue to be treated 1 to 2 days, if patient has no response to treat, then she hope change pt to comfortable measures only. We will assess patient day by day and discuss with DPOA for the care plan Current Medications - Current Medications Current Medications: Active Medications Acetaminophen (Tylenol) 650 mg PO Q4HR PRN PRN Reason: Pain 1 to 4 Last Admin: 02/15/20 12:31 Dose: 650 mg Documented by: Calcium Carbonate/Glycine (Tums) 500 mg PO BID [facility] Last Admin: 02/15/20 11:01 Dose: 500 mg Documented by: Docusate Sodium (Colace 250mg Capsule) 250 - 500 mg PO DAILY [facility] Last Admin: 02/15/20 08:31 Dose: Not Given Documented by: Heparin Sodium (Porcine) () 5,000 unit SUBQ BID [facility] Last Admin: 02/15/20 08:15 Dose: 5,000 unit Documented by: Sodium Chloride (Normal Saline 0.9%) 1,000 mls @ 83.3 mls/hr IV .Q12H1M [facility] Stop: 02/16/20 08:00 Last Infusion: 02/15/20 17:00 Dose: Infused Documented by: Vancomycin HCl 2 gm/ Sodium (Chloride) 500 mls @ 250 mls/hr IV Q24H [facility] Mineral Oil (Cavilon) 1 applic TOP PRN PRN PRN Reason: Skin Care Last Admin: 02/15/20 03:50 Dose: 1 applic Documented by: Nystatin (Nystop) 1 applic TOP BID [facility] Last Admin: 02/15/20 08:36 Dose: 1 applic Documented by: Ondansetron HCl (Zofran Inj) 4 mg IVP Q6HR PRN PRN Reason: Nausea / Vomiting Last Admin: 02/14/20 03:16 Dose: 4 mg Documented by: Pantoprazole Sodium (Protonix) 40 mg PO QDAC [facility] Last Admin: 02/15/20 05:29 Dose: 40 mg Documented by: Polyethylene Glycol (Miralax) 17 gm PO DAILY [facility] Last Admin: 02/15/20 08:31 Dose: Not Given Documented by: Saccharomyces Boulardii (Florastor) 250 mg PO BIDWM [facility] Last Admin: 02/15/20 08:15 Dose: 250 mg Documented by: Serge (Senokot) 8.6 - 17.2 mg PO DAILY [facility] Last Admin: 02/15/20 08:31 Dose: Not Given Documented by: Sodium Chloride (Normal Saline Flush 0.9%) 10 ml IVP PRN PRN PRN Reason: NEEDED PER PROVIDER ORDERS Last Admin: 02/14/20 08:00 Dose: 10 ml Documented by: Sodium Chloride (Normal Saline Flush 0.9%) 10 ml IVP 0100,0900,1700 [facility] Last Admin: 02/15/20 08:36 Dose: 10 ml Documented by: Sodium Phosphate (K-Phos Neutral) 250 mg PO TIDWM [facility] Last Admin: 02/15/20 11:01 Dose: 250 mg Documented by: Potassium Chloride 10 meq PO DAILY 06/06/14 Losartan [Cozaar] 100 mg PO DAILY 02/14/17 tiZANidine [Zanaflex] 4 mg PO BID 02/14/17 Melatonin 6 mg PO QPM 10/06/17 Pregabalin [Lyrica] 100 mg PO TID 10/06/17 polyethylene glycoL 3350 [Miralax] 17 gm PO DAILY 10/06/17 oxyCODONE [Roxicodone] 5 mg PO TID 02/13/18 Risperidone [Risperdal] 4 mg PO ACHS 05/05/18 oxyCODONE [Roxicodone] 5 mg PO Q4HR PRN 05/05/18 bisacodyL [Dulcolax] 5 mg PO DAILY PRN 07/14/18 Acetaminophen 500 mg PO Q6H PRN MDD 3000mg per 24 hours 12/03/18 Albuterol Sulfate [Albuterol Sulfate Hfa] 2 puffs INH Q8H PRN 12/03/18 Aspirin [Aspirin EC] 81 mg PO DAILY 12/03/18 Biofreeze Gel 4% 1 ea TOP BID PRN MDD on left stump 12/03/18 Duloxetine HCl [Cymbalta] 120 mg PO DAILY 12/03/18 Ferrous Gluconate 240 mg PO DAILY 12/03/18 Furosemide 20 mg PO DAILY 12/03/18 Nystatin 1 applic TOP BID PRN 12/03/18 Senna [Senokot] 8.6 mg PO BID 12/03/18 Verapamil HCl [Calan Sr] 120 mg PO DAILY 12/03/18 Magnesium Hydroxide [Milk of Magnesia] 30 ml PO Q24H PRN 02/14/20 Objective - Vital Signs/Intake & Output Vital Signs: Vital Signs x48h Temp Pulse Pulse Resp BP Pulse Ox 02/15/20 15:59 36.1 C L 84 24 139/68 H 98 02/15/20 09:45 36.0 C L 87 20 95 Intake & Output: Intake & Output 02/12/20 02/13/20 02/14/20 02/15/20 23:59 23:59 23:59 23:59 Intake Total 3655 3373.333 2176.000 Output Total 300 1050 1295 Balance 3355 2323.333 881.000 - Objective General Appearance: positive: Alert, Mild distress. negative: Lethargic Eyes Bilateral: positive: Normal inspection, PERRL, No lid inflammation ENT: positive: ENT inspection nml, No signs of dehydration. negative: Purulent nasal drainage Neck: positive: Nml inspection, Thyroid nml, Trachea midline. negative: Thyromegaly, Tracheal deviation Respiratory: positive: Chest non-tender, No respiratory distress. negative: Wheezes, Rales, Rhonchi Cardiovascular: positive: Regular rate & rhythm, No murmur. negative: Tachy cardia, Bradycardia, Systolic murmur, Diastolic murmur Peripheral Pulses: 2+ Radial (R), 2+ Radial (L) Abdomen: positive: Non-tender, Nml bowel sounds, No distention. negative: Tenderness, Guarding, Rebound Back: positive: Nml inspection Skin: positive: Color nml, No rash, Warm, Dry. negative: Cyanosis, Diaphoresis, Pallor Extremities: positive: Non-tender, Nml appearance Neurologic/Psychiatric: positive: Sensation nml. negative: Weakness, Sensory loss, Facial droop, Slurred/abnml speech - Lab Results Fish Bones: 02/15/20 05:20 02/15/20 05:20 Other Labs: Lab Results x24hrs 02/15/20 02/15/20 02/15/20 Range/Units 14:05 05:20 05:20 WBC 20.2 H (4.8-10.8) x10^3/uL RBC 3.68 L (4.20-5.40) 10^6/uL Hgb 10.0 L (12.0-16.0) g/dL Hct 32.8 L (37.0-47.0) % MCV 89.1 (81.0-99.0) fL MCH 27.2 (27.0-31.0) pg MCHC 30.5 L (32.0-36.0) g/dL RDW 16.6 H (12.0-15.0) % Plt Count 177 (130-450) 10^3/uL MPV 11.4 H (7.9-10.8) fL Neut # (Auto) Not Reportable Lymph # (Auto) Not Reportable [place] # (Auto) Not Reportable Eos # (Auto) Not Reportable Baso # (Auto) Not Reportable Absolute Nucleated RBC Not Reportable Total Counted 100 Band Neuts % (Manual) 3 (0 - 10) % Abnorm Lymph % (Manual) 0 % Nucleated RBC % Not Reportable Neutrophils # (Manual) 17.6 H (1.5-6.6) 10^3/uL Lymphocytes # (Manual) 2.0 (1.5-3.5) 10^3/uL Monocytes # (Manual) 0.6 (0.0-1.0) 10^3/uL Eosinophils # (Manual) 0.0 (0-0.7) 10^3/uL Basophils # (Manual) 0.0 (0-0.1) 10^3/uL Differential Comment MANUAL DIFFERENTIAL Platelet Estimate NORMAL (130-450,000) (NORMAL) RBC Morph Micro Appear NORMAL APPEARANCE (NORMAL) Sodium 139 (135-145) mmol/L Potassium 3.4 L (3.5-5.0) mmol/L Chloride 112 H (101-111) mmol/L Carbon Dioxide 19 L (21-32) mmol/L Anion Gap 8.0 (6-13) BUN 30 H (6-20) mg/dL Creatinine 0.9 (0.4-1.0) mg/dL Estimated GFR (MDRD) 61 L (>89) Glucose 116 H (70-100) mg/dL Lactic Acid (0.5-2.2) mmol/L Calcium 8.1 L (8.5-10.3) mg/dL Phosphorus 2.2 L (2.5-4.6) mg/dL Magnesium 1.8 (1.7-2.8) mg/dL Total Bilirubin 0.7 (0.2-1.0) mg/dL Direct Bilirubin 0.2 (0.1-0.5) mg/dL AST 29 (10-42) IU/L ALT 121 H (10-60) IU/L Alkaline Phosphatase 49 (42-121) IU/L Total Protein 5.8 L (6.7-8.2) g/dL Albumin 2.5 L (3.2-5.5) g/dL Globulin 3.3 (2.1-4.2) g/dL Nasal Screen MRSA (PCR) POSITIVE A* (NEGATIVE) 02/14/20 Range/Units 16:59 WBC (4.8-10.8) x10^3/uL RBC (4.20-5.40) 10^6/uL Hgb (12.0-16.0) g/dL Hct (37.0-47.0) % MCV (81.0-99.0) fL MCH (27.0-31.0) pg MCHC (32.0-36.0) g/dL RDW (12.0-15.0) % Plt Count (130-450) 10^3/uL MPV (7.9-10.8) fL Neut # (Auto) Lymph # (Auto) [place] # (Auto) Eos # (Auto) Baso # (Auto) Absolute Nucleated RBC Total Counted Band Neuts % (Manual) (0 - 10) % Abnorm Lymph % (Manual) % Nucleated RBC % Neutrophils # (Manual) (1.5-6.6) 10^3/uL Lymphocytes # (Manual) (1.5-3.5) 10^3/uL Monocytes # (Manual) (0.0-1.0) 10^3/uL Eosinophils # (Manual) (0-0.7) 10^3/uL Basophils # (Manual) (0-0.1) 10^3/uL Differential Comment Platelet Estimate (NORMAL) RBC Morph Micro Appear (NORMAL) Sodium (135-145) mmol/L Potassium (3.5-5.0) mmol/L Chloride (101-111) mmol/L Carbon Dioxide (21-32) mmol/L Anion Gap (6-13) BUN (6-20) mg/dL Creatinine (0.4-1.0) mg/dL Estimated GFR (MDRD) (>89) Glucose (70-100) mg/dL Lactic Acid 1.1 (0.5-2.2) mmol/L Calcium (8.5-10.3) mg/dL Phosphorus (2.5-4.6) mg/dL Magnesium (1.7-2.8) mg/dL Total Bilirubin (0.2-1.0) mg/dL Direct Bilirubin (0.1-0.5) mg/dL AST (10-42) IU/L ALT (10-60) IU/L Alkaline Phosphatase (42-121) IU/L Total Protein (6.7-8.2) g/dL Albumin (3.2-5.5) g/dL Globulin (2.1-4.2) g/dL Nasal Screen MRSA (PCR) (NEGATIVE) ABX Reporting Has patient been on IV antibiotics over the past 48 hours?: Yes Sepsis Event Note (H) - Evaluation Current Stage of Sepsis: Septic shock Possible source of Sepsis: positive: GI tract/intra-abdominal - Sepsis Criteria Sepsis Criteria: Recorded Temperature greater than 38.3C or Less than 36C, Recorded Respiratory Rate greater than 20, WBC count greater than 12,000 or less than 4000, AP[employer]S SALES CONSULTANT: altered consciousness (unrelated to primary neuro pathology), SBP drop more than 40mHg, Metabolic: lactate > 2 mmol/L Assessment/Plan - Problem List (1) Sepsis Impression: 107,Patient had a spotted fever, her WBC is still at 20. Blood pressure is in the normal range now. Blood culture show 1 tubal with bacteremia with gram positive cocci. Sensitivity study is pending. We will treat with Vancomycin per pharmacy recommend. d/c Aztteonam and Flagyl. Continue intravenous IV fluids 106,clinically pt was Improved. Patient was talking with me in the morning, she was comfortable laying in the bed. Patient also request to have diet. but her WBC is still at 20, and BP is around 100/50.Discussed the care plan with the patient's daughter in the bedside, Continue treat patient with antibiotics and intravenous IV fluids to see patient response, and care plan as they discussed with another provider in the night. she has acute cholecystitis, she also may have another urinary tract infection. pt has chronic indwelling urinary catheter. continue aztreonam and Flagyl. (2)bacteremia pt Has a positive blood culture in 1 tube blood with gram-positive cocci. Patient also had spotted fever, WBC still 20. We will switch antibiotics to vancomycin (3)advanced dementia pt Has history of advanced dementia, we will discuss patient DPOA for care plan (2) Acute on chronic renal failure improved and resoled. creatinine is 0.9 today. (3) Chronic indwelling Reyes catheter Conclusion/Plan: Patient has chronic indwelling Reyes catheter With chronic UTI and chronic col onization. Continue antibiotics treatment (4) Candidal intertrigo Conclusion/Plan: Nystatin powder (5) failure thrive Patient continued to have malnutrition and failure thrive. continue nutrition consult. (6) Peripheral neurogenic pain Conclusion/Plan: stable, she is comfortable. continue home meds. Qualifiers: Sepsis type: sepsis due to unspecified organism Sepsis acute organ dysfunction status: with acute organ dysfunction Severe sepsis acute organ dysfunction type: encephalopathy Severe sepsis shock status: with septic shock Qualified Code(s): A41.9 - Sepsis, unspecified organism; R65.21 - Severe sepsis with septic shock; G93.40 - Encephalopathy, unspecified
--- NOTE | 2020-02-15 17:39 | PHARMACY PROGRESS NOTE ---
- Therapy Status Vancomycin regimen day #: 1 Therapy status: Awaiting steady state Basis for treatment: Culture result Treatment indication: 02/14 VANCOMYCIN INITIATED 1500MG X1 LOADING DOSE CRCL (ABW): 58.4ML/MIN, SCR: 0.9MG/DL T1/2= 14.95H MAINTENACE DOSE = 2G Q24H GRAM + COCCI - , MRSA Positive TROUGH: 02/16 @ 1100 Trough goal: 15-20 - IGOR Risk Risk level for Acute Kidney Injury: Moderate Acute Kidney Injury risk factors: Goal trough >15 - Monitoring and Recommendation Clinical response to treatment: I&O Previous 24 hours 02/13/20 02/14/20 02/15/20 23:59 23:59 23:59 Intake Total 3655 3373.333 2176.000 Output Total 300 1050 1295 Balance 3355 2323.333 881.000 Lab Results 02/15/20 02/14/20 02/13/20 05:20 04:55 14:38 BUN 30 H 41 H 33 H Creatinine 0.9 1.6 H 1.5 H Estimated GFR (MDRD) 61 L 31 L 34 L Cultures 02/13/20 14:38 Blood - Right Arm Blood Culture - Preliminary NO GROWTH AFTER 2 DAYS 02/13/20 14:56 Blood - Left Arm Blood Culture - Preliminary 02/13/20 16:20 Urine,Catheterized Urine Culture - Final Klebsiella Pneumoniae Monitoring plan: Daily serum creatinine
[2020-02-16] MEDS: SODIUM CHLORIDE FLUSH 0.9% 10 ML SYRINGE IVP SCH ×3 (02:31→22:15)
[2020-02-16] MEDS: PANTOPRAZOLE 40 MG TABLET PO SCH (05:34)
[2020-02-16 05:42] LABS: BASOPHILS # (AUTO) 0.1 10^3/uL (0.0-0.1); BASOPHILS % (AUTO) 0.3 %; EOSINOPHILS # (AUTO) 0.1 10^3/uL (0.0-0.7); EOSINOPHILS % (AUTO) 0.3 %; HGB - HEMOGLOBIN 9.4 g/dL (12.0-16.0); LYMPHOCYTES # (AUTO) 1.3 10^3/uL (1.5-3.5); LYMPHOCYTES % (AUTO) 7.7 %; MEAN CORPUSCULAR HEMOGLOBIN 26.3 pg (27.0-31.0); MEAN CORPUSCULAR HGB CONC 30.3 g/dL (32.0-36.0); MEAN CORPUSCULAR VOLUME 86.6 fL (81.0-99.0); MEAN PLATELET VOLUME 11.4 fL (7.9-10.8); MONOCYTES % (AUTO) 5.8 %; NEUTROPHILS # (AUTO) 14.3 10^3/uL (1.5-6.6); NEUTROPHILS % (AUTO) 85.2 %; PLT - PLATELET COUNT 187 10^3/uL (130-450); RED BLOOD COUNT 3.58 10^6/uL (4.20-5.40); RED CELL DISTRIBUTION WIDTH 16.7 % (12.0-15.0); WHITE BLOOD COUNT 16.8 x10^3/uL (4.8-10.8)
[2020-02-16 05:59] LABS: ALBUMIN 2.5 g/dL (3.2-5.5); BILIRUBIN,DIRECT 0.2 mg/dL (0.1-0.5); BILIRUBIN,TOTAL 0.5 mg/dL (0.2-1.0); CALCIUM 8.2 mg/dL (8.5-10.3); CREATININE 0.6 mg/dL (0.4-1.0); MAGNESIUM 1.9 mg/dL (1.7-2.8); PHOSPHORUS 2.2 mg/dL (2.5-4.6); TOTAL PROTEIN 5.9 g/dL (6.7-8.2)
[2020-02-16] MEDS ORDERED: POTASSIUM CHLOR 10 MEQ/100 ML 10 MEQ/100 ML BAG IV ONE (07:25)
[2020-02-16] MEDS ORDERED: POTASSIUM PHOSPHATE 15 MMOL in SODIUM CHLORIDE 0.9% 250 ML IV ONE (07:26)
[2020-02-16] MEDS: HEPARIN 5,000 UNIT/ML VIAL SUBQ SCH ×2 (08:36→22:11)
[2020-02-16] MEDS: DOCUSATE SODIUM 250 MG CAPSULE PO SCH (08:36)
[2020-02-16] MEDS: SACCHAROMYCES BOULARDII 250 MG CAPSULE PO SCH ×2 (08:36→17:27)
[2020-02-16] MEDS: NEUTRA-PHOS 250 MG TABLET PO SCH ×3 (08:36→17:26)
[2020-02-16] MEDS: ethyl alcohoL 62% SWAB AMPULE NAS SCH ×2 (08:43→22:15)
[2020-02-16] MEDS: D5.45NS W/20 MEQ KCL 1,000 ML IV SCH (10:32)
[2020-02-16] MEDS: ACETAMINOPHEN 325 MG TABLET PO PRN (10:32)
[2020-02-16] MEDS: CALCIUM CARBONATE CHEW 500 MG TABLET PO SCH ×2 (10:33→22:15)
[2020-02-16] MEDS: polyethylene glycoL 3350 17 GM PACKET PO SCH (10:47)
[2020-02-16] MEDS: SENNA 8.6 MG TABLET PO SCH (10:47)
[2020-02-16] MEDS ORDERED: VANCOMYCIN INJ 2 GM in SODIUM CHLORIDE 0.9% 500 ML IV SCH (12:00)
[2020-02-16] MEDS: NYSTATIN POWDER 15 GM TOP SCH ×2 (12:05→22:17)
--- NOTE | 2020-02-16 16:59 | PROVIDER PROGRESS NOTE ---
Assessment/Plan - Problem List (1) Sepsis Qualifiers: Sepsis type: sepsis due to unspecified organism Sepsis acute organ dysfunction status: with acute organ dysfunction Severe sepsis acute organ dysfunction type: encephalopathy Severe sepsis shock status: with septic shock Qualified Code(s): A41.9 - Sepsis, unspecified organism; R65.21 - Severe sepsis with septic shock; G93.40 - Encephalopathy, unspecified Assessment/Plan: 02/15, Improved. Patient has no more fever. Patient WBC is trend down to 17. Patient ate 15% of her diet. Blood culture show 1 tubal has positive for Staph epidemitidis, UA culture show positive Klebsiella. According to sensitive study, and pt is response to the treatment, We will continue antibiotics vancomycin and one-time fosfomycin. 107,Patient had a spotted fever, her WBC is still at 20. Blood pressure is in the normal range now. Blood culture show 1 tubal with bacteremia with gram positive cocci. Sensitivity study is pending. We will treat with Vancomycin per pharmacy recommend. d/c Aztteonam and Flagyl. Continue intravenous IV fluids 106,clinically pt was Improved. Patient was talking with me in the morning, she was comfortable laying in the bed. Patient also request to have diet. but her WBC is still at 20, and BP is around 100/50.Discussed the care plan with the patient's daughter in the bedside, Continue treat patient with antibiotics and intravenous IV fluids to see patient response, and care plan as they discussed with another provider in the night. she has acute cholecystitis, she also may have another urinary tract infection. pt has chronic indwelling urinary catheter. continue aztreonam and Flagyl. (2)bacteremia 108,Blood culture show 1 tubal has positive for Staph epidemitidis, We will continue vancomycin, repeat blood culture on tomorrow pt Has a positive blood culture in 1 tube blood with gram-positive cocci. Patient also had spotted fever, WBC still 20. We will switch antibiotics to vancomycin (3)UTI -pt Has a UTI, UA culture show positive Klebsiella. one-time fosfomycin (4)advanced dementia pt Has history of advanced dementia, we will discuss patient DPOA for care plan (5) Acute on chronic renal failure 02-15, resolved improved and resoled. creatinine is 0.9 today. (6) Chronic indwelling Reyes catheter Conclusion/Plan: Patient has chronic indwelling Reyes catheter With chronic UTI and chronic colonization. Continue antibiotics treatment (7) Candidal intertrigo Conclusion/Plan: Nystatin powder (8) failure thrive Patient continued to have malnutrition and failure thrive. continue nutrition consult. (9) Peripheral neurogenic pain Conclusion/Plan: stable, she is comfortable. continue home meds. - Current Meds Current Meds: Current Medications Generic Name Dose Route Start Last Admin Trade Name Freq PRN Reason Stop Dose Admin Acetaminophen 650 mg 02/13/20 16:55 02/16/20 10:32 Tylenol PO 650 mg Q4HR PRN Administration Pain 1 to 4 Alcohol 1 amp 02/16/20 09:00 02/16/20 08:43 Nozin BECKIE 1 amp BID JEAN Administration Calcium Carbonate/Glycine 500 mg 02/15/20 10:00 02/16/20 10:33 Tums PO 500 mg BID JEAN Administration Docusate Sodium 250 - 500 mg 02/15/20 09:00 02/16/20 08:36 Colace 250mg Capsule PO 250 mg DAILY JEAN Administration Heparin Sodium (Porcine) 5,000 unit 02/13/20 21:00 02/16/20 08:36 SUBQ 5,000 unit BID JEAN Administration Vancomycin HCl 2 gm/ Sodium 500 mls @ 250 mls/hr 02/16/20 12:00 02/16/20 14:19 Chloride IV Infused Q24H JEAN Infusion Potassium Chloride/Dextrose/Sod Cl 1,000 mls @ 83.3 mls/hr 02/16/20 09:00 02/16/20 14:19 D5.45ns W/20 Meq Kcl IV 02/17/20 09:00 83.3 mls/hr .Q12H1M JEAN Infusion Mineral Oil 1 applic 02/13/20 19:58 02/15/20 03:50 Cavilon TOP 1 applic PRN PRN Administration Skin Care Nystatin 1 applic 02/13/20 22:00 02/16/20 12:05 Nystop TOP 1 applic BID JEAN Administration Ondansetron HCl 4 mg 02/13/20 16:55 02/14/20 03:16 Zofran Inj IVP 4 mg Q6HR PRN Administration Nausea / Vomiting Polyethylene Glycol 17 gm 02/15/20 09:00 02/16/20 10:47 Miralax PO Not Given DAILY JEAN Saccharomyces Boulardii 250 mg 02/14/20 17:00 02/16/20 08:36 Florastor PO 250 mg BIDWM JEAN Administration Senna 8.6 - 17.2 mg 02/15/20 09:00 02/16/20 10:47 Senokot PO Not Given DAILY JEAN Sodium Chloride 10 ml 02/13/20 16:55 02/14/20 08:00 Normal Saline Flush 0.9% IVP 10 ml PRN PRN Administration NEEDED PER PROVIDER ORDERS Sodium Chloride 10 ml 02/13/20 17:00 02/16/20 10:48 Normal Saline Flush 0.9% IVP Not Given 0100,0900,1700 JEAN Sodium Phosphate 250 mg 02/15/20 08:00 02/16/20 12:01 K-Phos Neutral PO 250 mg TIDWM JEAN Administration - Lab Result Fish Bone Diagrams: 02/16/20 05:36 02/16/20 05:36 - Additional Planning My Orders: My Active Orders 02/16/20 09:00 D5.45ns W/20 Meq KCl 1,000 ml IV 83.3 mls/hr 02/16/20 12:00 Vancomycin Inj [Vancomycin] 2 gm Sodium Chloride 0.9% [Normal Saline 0.9%] 500 ml IV Q24H 02/17/20 09:00 Famotidine [Pepcid] 20 mg PO DAILY Subjective - Subjective Nursing Reports: No Complaints Objective Vital Signs: Vital Signs - 24 hr 02/16/20 02/16/20 02/16/20 00:09 08:00 16:00 Temperature 37.3 C 37.1 C 35.6 C L Heart Rate [ 80 74 52 L Brachial] Respiratory 16 18 Rate Blood Pressure 144/77 H 145/68 H [Left Brachial artery] Blood Pressure 145/62 H [Right Brachial artery] O2 Saturation 94 96 97 Oxygen O2 Source Room air I&O (Last 24 Hrs): Intake and Output Totals x24h 02/14/20 02/15/20 02/16/20 23:59 23:59 23:59 Intake Total 3373.333 2546.000 1935.412 Output Total 1050 1720 850 Balance 2323.333 770.179 0119.412 General: Alert, No acute distress HEENT: Atraumatic Neck: Supple Lymphatic: no adenopathy Neuro: Alert, Non Focal Cardiovascular: Regular rate, Normal S1, Normal S2 Respiratory: Chest non-tender, No respiratory distress Abdomen: Normal bowel sounds, Soft, No tenderness Extremities: Normal pulses - Results Results: Laboratory Results WBC 16.8 x10^3/uL (4.8-10.8) H 02/16/20 05:36 RBC 3.58 10^6/uL (4.20-5.40) L 02/16/20 05:36 Hgb 9.4 g/dL (12.0-16.0) L 02/16/20 05:36 Hct 31.0 % (37.0-47.0) L 02/16/20 05:36 MCV 86.6 fL (81.0-99.0) 02/16/20 05:36 MCH 26.3 pg (27.0-31.0) L 02/16/20 05:36 MCHC 30.3 g/dL (32.0-36.0) L 02/16/20 05:36 RDW 16.7 % (12.0-15.0) H 02/16/20 05:36 Plt Count 187 10^3/uL (130-450) 02/16/20 05:36 MPV 11.4 fL (7.9-10.8) H 02/16/20 05:36 Neut # (Auto) 14.3 10^3/uL (1.5-6.6) H 02/16/20 05:36 Lymph # (Auto) 1.3 10^3/uL (1.5-3.5) L 02/16/20 05:36 [place] # (Auto) 1.0 10^3/uL (0.0-1.0) 02/16/20 05:36 Eos # (Auto) 0.1 10^3/uL (0.0-0.7) 02/16/20 05:36 Baso # (Auto) 0.1 10^3/uL (0.0-0.1) 02/16/20 05:36 Absolute Nucleated RBC 0.00 x10^3/uL 02/16/20 05:36 Total Counted 100 02/15/20 05:20 Band Neuts % (Manual) 3 % (0-10) 02/15/20 05:20 Abnorm Lymph % (Manual) 0 % 02/15/20 05:20 Nucleated RBC % 0.0 /100WBC 02/16/20 05:36 Neutrophils # (Manual) 17.6 10^3/uL (1.5-6.6) H 02/15/20 05:20 Lymphocytes # (Manual) 2.0 10^3/uL (1.5-3.5) 02/15/20 05:20 Monocytes # (Manual) 0.6 10^3/uL (0.0-1.0) 02/15/20 05:20 Eosinophils # (Manual) 0.0 10^3/uL (0-0.7) 02/15/20 05:20 Basophils # (Manual) 0.0 10^3/uL (0-0.1) 02/15/20 05:20 Differential Comment MANUAL DIFFERENTIAL 02/15/20 05:20 Manual Slide Review Indicated 02/14/20 04:55 Platelet Estimate NORMAL (130-450,000) (NORMAL) 02/15/20 05:20 Platelet Morphology NORMAL APPEARANCE (NORMAL) 02/14/20 04:55 RBC Morph Micro Appear NORMAL APPEARANCE (NORMAL) 02/15/20 05:20 PT 15.6 secs (9.9-12.6) H 02/13/20 14:38 INR 1.4 (0.8-1.2) H 02/13/20 14:38 APTT 22.5 secs (24.9-33.3) L 02/13/20 14:38 Sodium 146 mmol/L (135-145) H 02/16/20 05:36 Potassium 3.1 mmol/L (3.5-5.0) L 02/16/20 05:36 Chloride 118 mmol/L (101-111) H 02/16/20 05:36 Carbon Dioxide 20 mmol/L (21-32) L 02/16/20 05:36 Anion Gap 8.0 (6-13) 02/16/20 05:36 BUN 17 mg/dL (6-20) 02/16/20 05:36 Creatinine 0.6 mg/dL (0.4-1.0) 02/16/20 05:36 Estimated GFR (MDRD) 97 (>89) 02/16/20 05:36 Glucose 117 mg/dL (70-100) H 02/16/20 05:36 Lactic Acid 1.1 mmol/L (0.5-2.2) 02/14/20 16:59 Calcium 8.2 mg/dL (8.5-10.3) L 02/16/20 05:36 Phosphorus 2.2 mg/dL (2.5-4.6) L 02/16/20 05:36 Magnesium 1.9 mg/dL (1.7-2.8) 02/16/20 05:36 Total Bilirubin 0.5 mg/dL (0.2-1.0) 02/16/20 05:36 Direct Bilirubin 0.2 mg/dL (0.1-0.5) 02/16/20 05:36 AST 18 IU/L (10-42) 02/16/20 05:36 ALT 80 IU/L (10-60) H 02/16/20 05:36 Alkaline Phosphatase 46 IU/L (42-121) 02/16/20 05:36 Total Protein 5.9 g/dL (6.7-8.2) L 02/16/20 05:36 Albumin 2.5 g/dL (3.2-5.5) L 02/16/20 05:36 Albumin/Globulin Ratio 0.8 (1.0-2.2) L 02/13/20 14:38 Globulin 3.4 g/dL (2.1-4.2) 02/16/20 05:36 Lipase 19 U/L (22-51) L 02/13/20 14:38 Urine Color YELLOW 02/13/20 16:20 Urine Clarity HAZY (CLEAR) 02/13/20 16:20 Urine pH 7.0 PH (5.0-7.5) 02/13/20 16:20 Ur Specific [place] 1.015 (1.002-1.030) 02/13/20 16:20 Urine Protein 100 mg/dL (NEGATIVE) H 02/13/20 16:20 Urine Glucose (UA) NEGATIVE mg/dL (NEGATIVE) 02/13/20 16:20 Urine Ketones NEGATIVE mg/dL (NEGATIVE) 02/13/20 16:20 Urine Occult Blood SMALL (NEGATIVE) H 02/13/20 16:20 Urine Nitrite POSITIVE (NEGATIVE) H 02/13/20 16:20 Urine Bilirubin NEGATIVE (NEGATIVE) 02/13/20 16:20 Urine Urobilinogen 1 (NORMAL) E.U./dL (NORMAL) 02/13/20 16:20 Ur Leukocyte Esterase LARGE (NEGATIVE) H 02/13/20 16:20 Urine RBC TNTC /HPF (0-5) H 02/13/20 16:20 Urine WBC >25 /HPF (0-5) H 02/13/20 16:20 Urine WBC Clumps PRESENT 02/13/20 16:20 Ur Squamous Epith Cells NONE SEEN (<= Few) 02/13/20 16:20 Urine Bacteria Many /HPF (None Seen) H 02/13/20 16:20 Ur Microscopic Review INDICATED 02/13/20 16:20 Urine Culture Comments INDICATED 02/13/20 16:20 Nasal Screen MRSA (PCR) POSITIVE (NEGATIVE) A* 02/15/20 14:05 Coronavirus (PCR) NEGATIVE 02/15/20 10:42 - Procedures Procedures: Procedures CONTINUOUS INVASIVE MECHANICAL VENTILATION <96 CONSEC HRS (09/29/13) INSERT ENDOTRACHEAL TUBE (09/29/13) INSERT GASTRIC TUBE NEC (09/29/13) INSERTION OF INFUSION DEV INTO SUP VENA CAVA, PERC APPROACH (02/14/17) REPLACE CYSTOSTOMY TUBE (06/12/14) RETROGRADE PYELOGRAM (06/12/14) TU BLADDER CLEARANCE (06/12/14) VENOUS CATHETERIZATION NEC (09/29/13) Sepsis Event Note (H) - Evaluation Current Stage of Sepsis: Septic shock Possible source of Sepsis: positive: GI tract/intra-abdominal - Sepsis Criteria Sepsis Criteria: Recorded Temperature greater than 38.3C or Less than 36C, Recorded Respiratory Rate greater than 20, WBC count greater than 12,000 or less than 4000, [employer]: altered consciousness (unrelated to primary neuro pathology), SBP drop more than 40mHg, Metabolic: lactate > 2 mmol/L ABX Reporting Has patient been on IV antibiotics over the past 48 hours?: Yes Current Medications - Current Medications Current Medications: Active Medications Acetaminophen (Tylenol) 650 mg PO Q4HR PRN PRN Reason: Pain 1 to 4 Last Admin: 02/16/20 10:32 Dose: 650 mg Documented by: Alcohol (Nozin) 1 amp BECKIE BID [facility] Last Admin: 02/16/20 08:43 Dose: 1 amp Documented by: Calcium Carbonate/Glycine (Tums) 500 mg PO BID [facility] Last Admin: 02/16/20 10:33 Dose: 500 mg Documented by: Docusate Sodium (Colace 250mg Capsule) 250 - 500 mg PO DAILY [facility] Last Admin: 02/16/20 08:36 Dose: 250 mg Documented by: Famotidine (Pepcid) 20 mg PO DAILY [facility] Heparin Sodium (Porcine) () 5,000 unit SUBQ BID [facility] Last Admin: 02/16/20 08:36 Dose: 5,000 unit Documented by: Vancomycin HCl 2 gm/ Sodium (Chloride) 500 mls @ 250 mls/hr IV Q24H [facility] Last Infusion: 02/16/20 14:19 Dose: Infused Documented by: Potassium Chloride/Dextrose/Sod Cl (D5.45ns W/20 Meq Kcl) 1,000 mls @ 83.3 mls/hr IV .Q12H1M [facility] Stop: 02/17/20 09:00 Last Infusion: 02/16/20 14:19 Dose: 83.3 mls/hr Documented by: Mineral Oil (Cavilon) 1 applic TOP PRN PRN PRN Reason: Skin Care Last Admin: 02/15/20 03:50 Dose: 1 applic Documented by: Nystatin (Nystop) 1 applic TOP BID [facility] Last Admin: 02/16/20 12:05 Dose: 1 applic Documented by: Ondansetron HCl (Zofran Inj) 4 mg IVP Q6HR PRN PRN Reason: Nausea / Vomiting Last Admin: 02/14/20 03:16 Dose: 4 mg Documented by: Polyethylene Glycol (Miralax) 17 gm PO DAILY [facility] Last Admin: 02/16/20 10:47 Dose: Not Given Documented by: Saccharomyces Boulardii (Florastor) 250 mg PO BIDWM [facility] Last Admin: 02/16/20 08:36 Dose: 250 mg Documented by: Senna (Senokot) 8.6 - 17.2 mg PO DAILY [facility] Last Admin: 02/16/20 10:47 Dose: Not Given Documented by: Sodium Chloride (Normal Saline Flush 0.9%) 10 ml IVP PRN PRN PRN Reason: NEEDED PER PROVIDER ORDERS Last Admin: 02/14/20 08:00 Dose: 10 ml Documented by: Sodium Chloride (Normal Saline Flush 0.9%) 10 ml IVP 0100,0900,1700 [facility] Last Admin: 02/16/20 10:48 Dose: Not Given Documented by: Sodium Phosphate (K-Phos Neutral) 250 mg PO TIDWM [facility] Last Admin: 02/16/20 12:01 Dose: 250 mg Documented by: Potassium Chloride 10 meq PO DAILY 06/06/14 Losartan [Cozaar] 100 mg PO DAILY 02/14/17 tiZANidine [Zanaflex] 4 mg PO BID 02/14/17 Melatonin 6 mg PO QPM 10/06/17 Pregabalin [Lyrica] 100 mg PO TID 10/06/17 polyethylene glycoL 3350 [Miralax] 17 gm PO DAILY 10/06/17 oxyCODONE [Roxicodone] 5 mg PO TID 02/13/18 Risperidone [Risperdal] 4 mg PO ACHS 05/05/18 oxyCODONE [Roxicodone] 5 mg PO Q4HR PRN 05/05/18 bisacodyL [Dulcolax] 5 mg PO DAILY PRN 07/14/18 Acetaminophen 500 mg PO Q6H PRN MDD 3000mg per 24 hours 12/03/18 Albuterol Sulfate [Albuterol Sulfate Hfa] 2 puffs INH Q8H PRN 12/03/18 Aspirin [Aspirin EC] 81 mg PO DAILY 12/03/18 Biofreeze Gel 4% 1 ea TOP BID PRN MDD on left stump 12/03/18 Duloxetine HCl [Cymbalta] 120 mg PO DAILY 12/03/18 Ferrous Gluconate 240 mg PO DAILY 12/03/18 Furosemide 20 mg PO DAILY 12/03/18 Nystatin 1 applic TOP BID PRN 12/03/18 Senna [Senokot] 8.6 mg PO BID 12/03/18 Verapamil HCl [Calan Sr] 120 mg PO DAILY 12/03/18 Magnesium Hydroxide [Milk of Magnesia] 30 ml PO Q24H PRN 02/14/20
[2020-02-17] MEDS: D5.45NS W/20 MEQ KCL 1,000 ML IV SCH (00:52)
[2020-02-17] MEDS: SODIUM CHLORIDE FLUSH 0.9% 10 ML SYRINGE IVP SCH ×3 (00:53→17:10)
[2020-02-17 06:28] LABS: BASOPHILS # (AUTO) 0.1 10^3/uL (0.0-0.1); BASOPHILS % (AUTO) 0.4 %; EOSINOPHILS # (AUTO) 0.1 10^3/uL (0.0-0.7); EOSINOPHILS % (AUTO) 0.9 %; HGB - HEMOGLOBIN 9.8 g/dL (12.0-16.0); LYMPHOCYTES # (AUTO) 1.6 10^3/uL (1.5-3.5); LYMPHOCYTES % (AUTO) 11.7 %; MEAN CORPUSCULAR HEMOGLOBIN 26.8 pg (27.0-31.0); MEAN CORPUSCULAR HGB CONC 31.8 g/dL (32.0-36.0); MEAN CORPUSCULAR VOLUME 84.2 fL (81.0-99.0); MEAN PLATELET VOLUME 10.9 fL (7.9-10.8); MONOCYTES # (AUTO) 0.9 10^3/uL (0.0-1.0); MONOCYTES % (AUTO) 6.8 %; NEUTROPHILS # (AUTO) 10.5 10^3/uL (1.5-6.6); NEUTROPHILS % (AUTO) 78.2 %; PLT - PLATELET COUNT 228 10^3/uL (130-450); RED BLOOD COUNT 3.66 10^6/uL (4.20-5.40); RED CELL DISTRIBUTION WIDTH 16.7 % (12.0-15.0); WHITE BLOOD COUNT 13.5 x10^3/uL (4.8-10.8)
[2020-02-17 06:43] LABS: ALBUMIN 2.4 g/dL (3.2-5.5); BILIRUBIN,DIRECT 0.1 mg/dL (0.1-0.5); BILIRUBIN,TOTAL 0.5 mg/dL (0.2-1.0); CALCIUM 8.3 mg/dL (8.5-10.3); CREATININE 0.7 mg/dL (0.4-1.0); MAGNESIUM 1.8 mg/dL (1.7-2.8); PHOSPHORUS 2.4 mg/dL (2.5-4.6)
[2020-02-17] MEDS ORDERED: POTASSIUM CHLORIDE 20 MEQ TABLET PO ONE (08:00)
[2020-02-17] MEDS ORDERED: DEXTROSE 5%-0.2% NACL 1,000 ML IV SCH (08:00)
[2020-02-17 11:24] LABS: VANCOMYCIN,TROUGH 18.1 ug/mL (10.0-20.0)
[2020-02-17] MEDS: CALCIUM CARBONATE CHEW 500 MG TABLET PO SCH ×2 (11:50→21:38)
[2020-02-17] MEDS: DOCUSATE SODIUM 250 MG CAPSULE PO SCH (11:51)
[2020-02-17] MEDS: FAMOTIDINE 20 MG TABLET PO SCH (11:51)
[2020-02-17] MEDS: SACCHAROMYCES BOULARDII 250 MG CAPSULE PO SCH ×2 (11:51→17:05)
[2020-02-17] MEDS: NEUTRA-PHOS 250 MG TABLET PO SCH ×3 (11:51→17:04)
[2020-02-17] MEDS: SENNA 8.6 MG TABLET PO SCH (11:53)
[2020-02-17] MEDS: polyethylene glycoL 3350 17 GM PACKET PO SCH (11:53)
[2020-02-17] MEDS: ethyl alcohoL 62% SWAB AMPULE NAS SCH ×2 (11:53→20:39)
[2020-02-17] MEDS: HEPARIN 5,000 UNIT/ML VIAL SUBQ SCH ×2 (11:58→20:33)
[2020-02-17] MEDS: NYSTATIN POWDER 15 GM TOP SCH ×2 (12:08→22:37)
[2020-02-17 13:59] LABS: BILIRUBIN,URINE NEGATIVE (NEGATIVE); GLUCOSE, URINE (UA) NEGATIVE (NEGATIVE); KETONES,URINE (UA) NEGATIVE (NEGATIVE); LEUKOCYTE ESTERASE, URINE TRACE (NEGATIVE); NITRITE,URINE NEGATIVE (NEGATIVE); OCCULT BLOOD,URINE TRACE-INTA (NEGATIVE); PROTEIN,URINE 30 mg/dL (NEGATIVE); UROBILINOGEN,URINE 0.2 (NORMAL) E.U./dL (NORMAL)
[2020-02-17 14:13] LABS: CLARITY,URINE CLEAR (CLEAR)
[2020-02-17 14:14] LABS: BACTERIA,URINE Few /HPF (None Seen); RBC,URINE 0-5 /HPF (0-5); SQUAMOUS EPITHELIAL CELL,UR MOD Squamous (<= Few)
--- NOTE | 2020-02-17 15:07 | PROVIDER PROGRESS NOTE ---
Assessment/Plan - Problem List (1) Sepsis Qualifiers: Sepsis type: sepsis due to unspecified organism Sepsis acute organ dysfunction status: with acute organ dysfunction Severe sepsis acute organ dysfunction type: encephalopathy Severe sepsis shock status: with septic shock Qualified Code(s): A41.9 - Sepsis, unspecified organism; R65.21 - Severe sepsis with septic shock; G93.40 - Encephalopathy, unspecified Assessment/Plan: 109,Patient has no more fever,Repeated blood culture is pending. Patient WBC is treated down to 13.5. Because patient is very hard stick to have intravenous line. D/C intravenous antibiotics and switch to oral antibiotics Cipro according to culture study. 02/15, Improved. Patient has no more fever. Patient WBC is trend down to 17. Mendy ent ate 15% of her diet. Blood culture show 1 tubal has positive for Staph epidemitidis, UA culture show positive Klebsiella. According to sensitive study, and pt is response to the treatment, We will continue antibiotics vancomycin and one-time fosfomycin. 107,Patient had a spotted fever, her WBC is still at 20. Blood pressure is in the normal range now. Blood culture show 1 tubal with bacteremia with gram positive cocci. Sensitivity study is pending. We will treat with Vancomycin per pharmacy recommend. d/c Aztteonam and Flagyl. Continue intravenous IV fluids 106,clinically pt was Improved. Patient was talking with me in the morning, she was comfortable laying in the bed. Patient also request to have diet. but her WBC is still at 20, and BP is around 100/50.Discussed the care plan with the patient's daughter in the bedside, Continue treat patient with antibiotics and intravenous IV fluids to see patient response, and care plan as they discussed with another provider in the night. she has acute cholecystitis, she also may have another urinary tract infection. pt has chronic indwelling urinary catheter. continue aztreonam and Flagyl. (2)bacteremia 109, repeated blood culture is pending, Continue antibiotics treatment. blood culture is high possible from contamination. WBC is 13.5 now. 108,Blood culture show 1 tubal has positive for Staph epidemitidis, We will continue vancomycin, repeat blood culture on tomorrow pt Has a positive blood culture in 1 tube blood with gram-positive cocci. Patient also had spotted fever, WBC still 20. We will switch antibiotics to vancomycin (3)UTI 108, repeated urine culture show great improved, continue cipro. 10-8pt Has a UTI, UA culture show positive Klebsiella. one-time fosfomycin (4)advanced dementia pt Has history of advanced dementia, we will discuss patient DPOA for care plan (5) Acute on chronic renal failure 10-8, resolved improved and resoled. creatinine is 0.9 today. (6) Chronic indwelling Reyes catheter Conclusion/Plan: Patient has chronic indwelling Reyes catheter With chronic UTI and chronic colonization. cath was changed in ER. Continue antibiotics treatment (7) Candidal intertrigo Conclusion/Plan: Nystatin powder (8) failure thrive Patient continued to have malnutrition and failure thrive. continue nutrition consult. (9) Peripheral neurogenic pain Conclusion/Plan: stable, she is comfortable. continue home meds. - Current Meds Current Meds: Current Medications Generic Name Dose Route Start Last Admin Trade Name Freq PRN Reason Stop Dose Admin Acetaminophen 650 mg 02/13/20 16:55 02/16/20 10:32 Tylenol PO 650 mg Q4HR PRN Administration Pain 1 to 4 Alcohol 1 amp 02/16/20 09:00 02/17/20 11:53 Nozin BECKIE 1 amp BID JEAN Administration Calcium Carbonate/Glycine 500 mg 02/15/20 10:00 02/17/20 11:50 Tums PO 500 mg BID JEAN Administration Docusate Sodium 250 - 500 mg 02/15/20 09:00 02/17/20 11:51 Colace 250mg Capsule PO 250 mg DAILY JEAN Administration Famotidine 20 mg 02/17/20 09:00 02/17/20 11:51 Pepcid PO 20 mg DAILY JEAN Administration Heparin Sodium (Porcine) 5,000 unit 02/13/20 21:00 02/17/20 11:58 SUBQ 5,000 unit BID JEAN Administration Dextrose/Sodium Chloride 1,000 mls @ 50 mls/hr 02/17/20 08:00 02/17/20 12:58 D5.2ns IV 02/18/20 03:59 Not Given .Q20H JEAN Mineral Oil 1 applic 02/13/20 19:58 02/15/20 03:50 Cavilon TOP 1 applic PRN PRN Administration Skin Care Nystatin 1 applic 02/13/20 22:00 02/17/20 12:08 Nystop TOP 1 applic BID JEAN Administration Ondansetron HCl 4 mg 02/13/20 16:55 02/14/20 03:16 Zofran Inj IVP 4 mg Q6HR PRN Administration Nausea / Vomiting Polyethylene Glycol 17 gm 02/15/20 09:00 02/17/20 11:53 Miralax PO Not Given DAILY JEAN Saccharomyces Boulardii 250 mg 02/14/20 17:00 02/17/20 11:51 Florastor PO 250 mg BIDWM JEAN Administration Senna 8.6 - 17.2 mg 02/15/20 09:00 02/17/20 11:53 Senokot PO Not Given DAILY JEAN Sodium Chloride 10 ml 02/13/20 16:55 02/14/20 08:00 Normal Saline Flush 0.9% IVP 10 ml PRN PRN Administration NEEDED PER PROVIDER ORDERS Sodium Chloride 10 ml 02/13/20 17:00 02/17/20 11:53 Normal Saline Flush 0.9% IVP Not Given 0100,0900,1700 JEAN Sodium Phosphate 250 mg 02/15/20 08:00 02/17/20 12:11 K-Phos Neutral PO 250 mg TIDWM JEAN Administration - Lab Result Fish Bone Diagrams: 02/17/20 06:23 02/17/20 06:23 - Additional Planning My Orders: My Active Orders 02/17/20 08:00 Dextrose 5%-0.2% NaCl [D5.2ns] 1,000 ml IV 50 mls/hr 02/17/20 08:02 Blood Culture [CULTURE, BLOOD #1] [] Urgent 02/17/20 09:00 Famotidine [Pepcid] 20 mg PO DAILY 02/17/20 09:05 Blood Culture [CULTURE, BLOOD #2] [] Urgent 02/17/20 21:00 Ciprofloxacin [Cipro] 500 mg PO BID Subjective - Subjective Nursing Reports: No Complaints Objective Vital Signs: Vital Signs - 24 hr 02/16/20 02/17/20 02/17/20 16:00 00:00 08:00 Temperature 35.6 C L 36.6 C 36.7 C Heart Rate [ 52 L 55 L Brachial] Heart Rate [ 49 L Radial] Respiratory 18 16 20 Rate Blood Pressure 144/58 H 157/68 H [Left Brachial artery] Blood Pressure 145/62 H [Right Brachial artery] O2 Saturation 97 98 98 Oxygen O2 Source Room air I&O (Last 24 Hrs): Intake and Output Totals x24h 02/15/20 02/16/20 02/17/20 23:59 23:59 23:59 Intake Total 2546.000 2863.272 1798.163 Output Total 1720 1150 625 Balance 118.272 3697.272 1173.163 General: Alert, No acute distress HEENT: Atraumatic Neck: Supple Lymphatic: no adenopathy Neuro: Alert, Non Focal Cardiovascular: Regular rate, Normal S1, Normal S2 Respiratory: Chest non-tender, No respiratory distress Abdomen: Normal bowel sounds, Soft Extremities: Normal pulses - Results Results: Laboratory Results WBC 13.5 x10^3/uL (4.8-10.8) H 02/17/20 06:23 RBC 3.66 10^6/uL (4.20-5.40) L 02/17/20 06:23 Hgb 9.8 g/dL (12.0-16.0) L 02/17/20 06:23 Hct 30.8 % (37.0-47.0) L 02/17/20 06:23 MCV 84.2 fL (81.0-99.0) 02/17/20 06:23 MCH 26.8 pg (27.0-31.0) L 02/17/20 06:23 MCHC 31.8 g/dL (32.0-36.0) L 02/17/20 06:23 RDW 16.7 % (12.0-15.0) H 02/17/20 06:23 Plt Count 228 10^3/uL (130-450) 02/17/20 06:23 MPV 10.9 fL (7.9-10.8) H 02/17/20 06:23 Neut # (Auto) 10.5 10^3/uL (1.5-6.6) H 02/17/20 06:23 Lymph # (Auto) 1.6 10^3/uL (1.5-3.5) 02/17/20 06:23 [place] # (Auto) 0.9 10^3/uL (0.0-1.0) 02/17/20 06:23 Eos # (Auto) 0.1 10^3/uL (0.0-0.7) 02/17/20 06:23 Baso # (Auto) 0.1 10^3/uL (0.0-0.1) 02/17/20 06:23 Absolute Nucleated RBC 0.00 x10^3/uL 02/17/20 06:23 Total Counted 100 02/15/20 05:20 Band Neuts % (Manual) 3 % (0-10) 02/15/20 05:20 Abnorm Lymph % (Manual) 0 % 02/15/20 05:20 Nucleated RBC % 0.0 /100WBC 02/17/20 06:23 Neutrophils # (Manual) 17.6 10^3/uL (1.5-6.6) H 02/15/20 05:20 Lymphocytes # (Manual) 2.0 10^3/uL (1.5-3.5) 02/15/20 05:20 Monocytes # (Manual) 0.6 10^3/uL (0.0-1.0) 02/15/20 05:20 Eosinophils # (Manual) 0.0 10^3/uL (0-0.7) 02/15/20 05:20 Basophils # (Manual) 0.0 10^3/uL (0-0.1) 02/15/20 05:20 Differential Comment MANUAL DIFFERENTIAL 02/15/20 05:20 Manual Slide Review Indicated 02/14/20 04:55 Platelet Estimate NORMAL (130-450,000) (NORMAL) 02/15/20 05:20 Platelet Morphology NORMAL APPEARANCE (NORMAL) 02/14/20 04:55 RBC Morph Micro Appear NORMAL APPEARANCE (NORMAL) 02/15/20 05:20 PT 15.6 secs (9.9-12.6) H 02/13/20 14:38 INR 1.4 (0.8-1.2) H 02/13/20 14:38 APTT 22.5 secs (24.9-33.3) L 02/13/20 14:38 Sodium 147 mmol/L (135-145) H 02/17/20 06:23 Potassium 3.3 mmol/L (3.5-5.0) L 02/17/20 06:23 Chloride 119 mmol/L (101-111) H 02/17/20 06:23 Carbon Dioxide 21 mmol/L (21-32) 02/17/20 06:23 Anion Gap 7.0 (6-13) 02/17/20 06:23 BUN 16 mg/dL (6-20) 02/17/20 06:23 Creatinine 0.7 mg/dL (0.4-1.0) 02/17/20 06:23 Estimated GFR (MDRD) 82 (>89) L 02/17/20 06:23 Glucose 158 mg/dL (70-100) H 02/17/20 06:23 Lactic Acid 1.1 mmol/L (0.5-2.2) 02/14/20 16:59 Calcium 8.3 mg/dL (8.5-10.3) L 02/17/20 06:23 Phosphorus 2.4 mg/dL (2.5-4.6) L 02/17/20 06:23 Magnesium 1.8 mg/dL (1.7-2.8) 02/17/20 06:23 Total Bilirubin 0.5 mg/dL (0.2-1.0) 02/17/20 06:23 Direct Bilirubin 0.1 mg/dL (0.1-0.5) 02/17/20 06:23 AST 16 IU/L (10-42) 02/17/20 06:23 ALT 61 IU/L (10-60) H 02/17/20 06:23 Alkaline Phosphatase 46 IU/L (42-121) 02/17/20 06:23 Total Protein 6.0 g/dL (6.7-8.2) L 02/17/20 06:23 Albumin 2.4 g/dL (3.2-5.5) L 02/17/20 06:23 Albumin/Globulin Ratio 0.8 (1.0-2.2) L 02/13/20 14:38 Globulin 3.6 g/dL (2.1-4.2) 02/17/20 06:23 Lipase 19 U/L (22-51) L 02/13/20 14:38 Urine Color YELLOW 02/17/20 13:42 Urine Clarity CLEAR (CLEAR) 02/17/20 13:42 Urine pH 6.0 PH (5.0-7.5) 02/17/20 13:42 Ur Specific [place] 1.020 (1.002-1.030) 02/17/20 13:42 Urine Protein 30 mg/dL (NEGATIVE) H 02/17/20 13:42 Urine Glucose (UA) NEGATIVE mg/dL (NEGATIVE) 02/17/20 13:42 Urine Ketones NEGATIVE mg/dL (NEGATIVE) 02/17/20 13:42 Urine Occult Blood TRACE-INTA (NEGATIVE) 02/17/20 13:42 Urine Nitrite NEGATIVE (NEGATIVE) 02/17/20 13:42 Urine Bilirubin NEGATIVE (NEGATIVE) 02/17/20 13:42 Urine Urobilinogen 0.2 (NORMAL) E.U./dL (NORMAL) 02/17/20 13:42 Ur Leukocyte Esterase TRACE (NEGATIVE) H 02/17/20 13:42 Urine RBC 0-5 /HPF (0-5) 02/17/20 13:42 Urine WBC 4-5 /HPF (0-5) 02/17/20 13:42 Urine WBC Clumps PRESENT 02/13/20 16:20 Ur Squamous Epith Cells MOD Squamous (<= Few) H 02/17/20 13:42 Urine Bacteria Few /HPF (None Seen) 02/17/20 13:42 Ur Microscopic Review INDICATED 02/13/20 16:20 Urine Culture Comments NOT INDICATED 02/17/20 13:42 Nasal Screen MRSA (PCR) POSITIVE (NEGATIVE) A* 02/15/20 14:05 Last Dose Date 02/16/20 02/17/20 11:09 Last Dose Time 1419 02/17/20 11:09 Vancomycin Trough 18.1 ug/mL (10.0-20.0) 02/17/20 11:09 Coronavirus (PCR) NEGATIVE 02/15/20 10:42 - Procedures Procedures: Procedures CONTINUOUS INVASIVE MECHANICAL VENTILATION <96 CONSEC HRS (09/29/13) INSERT ENDOTRACHEAL TUBE (09/29/13) INSERT GASTRIC TUBE NEC (09/29/13) INSERTION OF INFUSION DEV INTO SUP VENA CAVA, PERC APPROACH (02/14/17) REPLACE CYSTOSTOMY TUBE (06/12/14) RETROGRADE PYELOGRAM (06/12/14) TU BLADDER CLEARANCE (06/12/14) VENOUS CATHETERIZATION NEC (09/29/13) Sepsis Event Note (H) - Evaluation Current Stage of Sepsis: Septic shock Possible source of Sepsis: positive: GI tract/intra-abdominal - Sepsis Criteria Sepsis Criteria: Recorded Temperature greater than 38.3C or Less than 36C, Recorded Respiratory Rate greater than 20, WBC count greater than 12,000 or less than 4000, ALARM SERVICE TECHNICIAN: altered consciousness (unrelated to primary neuro pathology), SBP drop more than 40mHg, Metabolic: lactate > 2 mmol/L ABX Reporting Has patient been on IV antibiotics over the past 48 hours?: Yes Current Medications - Current Medications Current Medications: Active Medications Acetaminophen (Tylenol) 650 mg PO Q4HR PRN PRN Reason: Pain 1 to 4 Last Admin: 02/16/20 10:32 Dose: 650 mg Documented by: Alcohol (Nozin) 1 amp BECKIE BID [facility] Last Admin: 02/17/20 11:53 Dose: 1 amp Documented by: Calcium Carbonate/Glycine (Tums) 500 mg PO BID [facility] Last Admin: 02/17/20 11:50 Dose: 500 mg Documented by: Ciprofloxacin (Cipro) 500 mg PO BID [facility] Docusate Sodium (Colace 250mg Capsule) 250 - 500 mg PO DAILY [facility] Last Admin: 02/17/20 11:51 Dose: 250 mg Documented by: Famotidine (Pepcid) 20 mg PO DAILY [facility] Last Admin: 02/17/20 11:51 Dose: 20 mg Documented by: Heparin Sodium (Porcine) () 5,000 unit SUBQ BID [facility] Last Admin: 02/17/20 11:58 Dose: 5,000 unit Documented by: Dextrose/Sodium Chloride (D5.2ns) 1,000 mls @ 50 mls/hr IV .Q20H [facility] Stop: 02/18/20 03:59 Last Admin: 02/17/20 12:58 Dose: Not Given Documented by: Mineral Oil (Cavilon) 1 applic TOP PRN PRN PRN Reason: Skin Care Last Admin: 02/15/20 03:50 Dose: 1 applic Documented by: Nystatin (Nystop) 1 applic TOP BID [facility] Last Admin: 02/17/20 12:08 Dose: 1 applic Documented by: Ondansetron HCl (Zofran Inj) 4 mg IVP Q6HR PRN PRN Reason: Nausea / Vomiting Last Admin: 02/14/20 03:16 Dose: 4 mg Documented by: Polyethylene Glycol (Miralax) 17 gm PO DAILY [facility] Last Admin: 02/17/20 11:53 Dose: Not Given Documented by: Saccharomyces Boulardii (Florastor) 250 mg PO BIDWM [facility] Last Admin: 02/17/20 11:51 Dose: 250 mg Documented by: Senna (Senokot) 8.6 - 17.2 mg PO DAILY [facility] Last Admin: 02/17/20 11:53 Dose: Not Given Documented by: Sodium Chloride (Normal Saline Flush 0.9%) 10 ml IVP PRN PRN PRN Reason: NEEDED PER PROVIDER ORDERS Last Admin: 02/14/20 08:00 Dose: 10 ml Documented by: Sodium Chloride (Normal Saline Flush 0.9%) 10 ml IVP 0100,0900,1700 [facility] Last Admin: 02/17/20 11:53 Dose: Not Given Documented by: Sodium Phosphate (K-Phos Neutral) 250 mg PO TIDWM [facility] Last Admin: 02/17/20 12:11 Dose: 250 mg Documented by: Potassium Chloride 10 meq PO DAILY 06/06/14 Losartan [Cozaar] 100 mg PO DAILY 02/14/17 tiZANidine [Zanaflex] 4 mg PO BID 02/14/17 Melatonin 6 mg PO QPM 10/06/17 Pregabalin [Lyrica] 100 mg PO TID 10/06/17 polyethylene glycoL 3350 [Miralax] 17 gm PO DAILY 10/06/17 oxyCODONE [Roxicodone] 5 mg PO TID 02/13/18 Risperidone [Risperdal] 4 mg PO ACHS 05/05/18 oxyCODONE [Roxicodone] 5 mg PO Q4HR PRN 05/05/18 bisacodyL [Dulcolax] 5 mg PO DAILY PRN 07/14/18 Acetaminophen 500 mg PO Q6H PRN MDD 3000mg per 24 hours 12/03/18 Albuterol Sulfate [Albuterol Sulfate Hfa] 2 puffs INH Q8H PRN 12/03/18 Aspirin [Aspirin EC] 81 mg PO DAILY 12/03/18 Biofreeze Gel 4% 1 ea TOP BID PRN MDD on left stump 12/03/18 Duloxetine HCl [Cymbalta] 120 mg PO DAILY 12/03/18 Ferrous Gluconate 240 mg PO DAILY 12/03/18 Furosemide 20 mg PO DAILY 12/03/18 Nystatin 1 applic TOP BID PRN 12/03/18 Senna [Senokot] 8.6 mg PO BID 12/03/18 Verapamil HCl [Calan Sr] 120 mg PO DAILY 12/03/18 Magnesium Hydroxide [Milk of Magnesia] 30 ml PO Q24H PRN 02/14/20
[2020-02-17] MEDS: CIPROFLOXACIN 250 MG TABLET PO SCH (20:30)
[2020-02-18] MEDS: SODIUM CHLORIDE FLUSH 0.9% 10 ML SYRINGE IVP SCH ×2 (01:24→09:52)
[2020-02-18 05:45] LABS: BASOPHILS % (AUTO) 0.5 %; EOSINOPHILS % (AUTO) 2.5 %; HGB - HEMOGLOBIN 9.8 g/dL (12.0-16.0); LYMPHOCYTES % (AUTO) 18.2 %; MEAN CORPUSCULAR HEMOGLOBIN 26.5 pg (27.0-31.0); MEAN CORPUSCULAR HGB CONC 31.8 g/dL (32.0-36.0); MEAN CORPUSCULAR VOLUME 83.2 fL (81.0-99.0); MEAN PLATELET VOLUME 11.3 fL (7.9-10.8); MONOCYTES % (AUTO) 7.5 %; NEUTROPHILS % (AUTO) 65.4 %; PLT - PLATELET COUNT 244 10^3/uL (130-450); RED CELL DISTRIBUTION WIDTH 16.6 % (12.0-15.0); WHITE BLOOD COUNT 11.6 x10^3/uL (4.8-10.8)
[2020-02-18 05:57] LABS: ABNORMAL LYMPHS % (MANUAL) 0 %
[2020-02-18 06:09] LABS: BAND NEUTROPHILS % (MANUAL) 1 %; EOSINOPHILS # (MANUAL) 0.2 10^3/uL (0-0.7); LYMPHOCYTES # (MANUAL) 2.2 10^3/uL (1.5-3.5); LYMPHOCYTES % (MANUAL) 19 %; METAMYELOCYTES % (MANUAL) 1 %; MONOCYTES # (MANUAL) 0.7 10^3/uL (0.0-1.0); MYELOCYTES % (MANUAL) 1 %
[2020-02-18 06:10] LABS: DIFFERENTIAL COMMENT MANUAL DIFFERENTIAL; PLATELET ESTIMATE, MANUAL NORMAL (130-450,000) (NORMAL); PLATELET MORPHOLOGY NORMAL APPEARANCE (NORMAL); RBC MORPHOLOGY (MULTIPLE) 2+ HYPOCHROMASIA (NORMAL)
[2020-02-18 06:15] LABS: ALBUMIN 2.3 g/dL (3.2-5.5); BILIRUBIN,DIRECT 0.1 mg/dL (0.1-0.5); BILIRUBIN,TOTAL 0.6 mg/dL (0.2-1.0); CALCIUM 8.4 mg/dL (8.5-10.3); CREATININE 0.6 mg/dL (0.4-1.0); MAGNESIUM 1.8 mg/dL (1.7-2.8); PHOSPHORUS 2.7 mg/dL (2.5-4.6); TOTAL PROTEIN 5.9 g/dL (6.7-8.2)
[2020-02-18] MEDS ORDERED: POTASSIUM CHLORIDE 20 MEQ TABLET PO ONE (08:00)
[2020-02-18] MEDS ORDERED: PREGABALIN 100 MG CAPSULE PO SCH (08:00)
[2020-02-18] MEDS ORDERED: LOSARTAN 50 MG TABLET PO SCH (09:00)
[2020-02-18] MEDS ORDERED: DULoxetine 30 MG CAPSULE PO SCH (09:00)
[2020-02-18] MEDS ORDERED: ASPIRIN EC 81 MG TABLET PO SCH (09:00)
[2020-02-18] MEDS: ethyl alcohoL 62% SWAB AMPULE NAS SCH (09:32)
[2020-02-18] MEDS: FAMOTIDINE 20 MG TABLET PO SCH (09:39)
[2020-02-18] MEDS: SACCHAROMYCES BOULARDII 250 MG CAPSULE PO SCH (09:49)
[2020-02-18] MEDS: CIPROFLOXACIN 250 MG TABLET PO SCH (09:49)
[2020-02-18] MEDS: HEPARIN 5,000 UNIT/ML VIAL SUBQ SCH (09:49)
[2020-02-18] MEDS: CALCIUM CARBONATE CHEW 500 MG TABLET PO SCH (09:49)
[2020-02-18] MEDS: DOCUSATE SODIUM 250 MG CAPSULE PO SCH (09:56)
[2020-02-18] MEDS: SENNA 8.6 MG TABLET PO SCH (09:56)
[2020-02-18] MEDS: NYSTATIN POWDER 15 GM TOP SCH (09:57)
[2020-02-18] MEDS: NEUTRA-PHOS 250 MG TABLET PO SCH ×2 (09:57→12:14)
[2020-02-18] MEDS: polyethylene glycoL 3350 17 GM PACKET PO SCH (09:57)
[2020-02-18] MEDS ORDERED: amLODIPine 5 MG TABLET PO SCH (11:00)
--- NOTE | 2020-02-18 11:00 | Discharge Plan ---
"Discharge Plan for SNF / SKILLED NURSING - Discharge Plan And Transition Orders Problem Reviewed?: Yes Disposition: 03 [facility] DC/Xfer Condition: Fair Allergies and Adverse Reactions: Allergies Allergy/AdvReac Type Severity Reaction Status Date / Time erythromycin base Allergy Severe Anaphylaxis Verified 02/12/18 23:19 [Erythromycin Base] Penicillins Allergy Severe Anaphylaxis Verified 02/12/18 23:19 Sulfa (Sulfonamide Allergy Severe Redness/High Verified 02/12/18 23:19 Antibiotics) fever lisinopril Allergy Unknown Unknown Verified 02/12/18 23:19 ceftriaxone Allergy Rash Verified 02/12/18 23:19 quinidine Allergy Rash Verified 02/12/18 23:19 Health Concerns: He was admitted to the floor for sepsis secondary to possible cholecystitis and catheter associated urinary tract infection. She was hypotensive and required IV fluids. Family stated that the patient is a DNR with limited interventions and focus on comfort. They do not want ICU care or central line or vasopressors or any procedures. She was treated with IV antibiotics with Flagyl and aztreonam initially given her allergies. Urine culture grew Klebsiella and she was transitioned to ciprofloxacin. Flagyl was discontinued as was felt less likely that she had cholecystitis. Initial blood cultures did grow staph epidermidis which was felt to be a contaminant. Repeat blood cultures have been negative. Her blood pressure has remained stable and her white count has improved on a daily basis. She will be discharged on oral ciprofloxacin for 10 more days to complete 2 weeks of therapy. Her catheter was exchanged during thi s hospitalization. Her verapamil will be discontinued on discharge as her heart rate has been stable in the 50s. She was initially minimally responsive upon her arrival to our facility but she is now awake but she does not converse very much. - SNF / LETTY Transition Orders Admit to (Facility): [facility] Discharge Diagnosis: Sepsis - resolved Catheter associated urinary tract infection - improved Cholecystitis - stable. Coag negative staph bacteremia - resolved. Advanced dementia - stable. Acute kidney injury - resolved. Chronic indwelling Reyes catheter - stable. Hypertension - stable. Neuropathy - stable. Medicare Certification Statement: I certify that [facility] residential care is medically necessary on a continuing basis for any of the conditions for which she/he is receiving care during hospitalization. Notify PCP of admission and forward orders to primary provider for signature. Other Notification Orders: Call PCP immediately if patient develops dyspnea, chest pain/tightness or edema. Additional Bowel Program Orders: If no BM after 2 days, nurse may give M.O.M. 30ml PO PRN and/or ducolax Supp 1 ND and/or DENZEL 250mg P.O., and/or senna 1-2 tabs PO. On day 3 nurse may give repeat above order until residents constipation is resolved. Medication Orders: PLEASE REFER TO THE DISCHARGE MEDICATION LIST. - Medications New Prescriptions: Ciprofloxacin [Cipro] 500 mg PO BID 10 Days #40 tablet amLODIPine [Norvasc] 5 mg PO DAILY #30 tablet Potassium Chloride 20 meq PO DAILY #30 tablet.er oxyCODONE [Roxicodone] 5 mg PO BID #8 tablet Calcium Carbonate [Tums (Calcium Carbonate 500mg)] 500 mg PO BID #60 tablet - Diet Type: Geriatric Texture: Mech soft Liquids: Thin - Therapies | Activity Therapy: Evaluation | Treat if indicated: Swallowing / ST"
--- NOTE | 2020-02-18 11:11 | DISCHARGE SUMMARY ---
"Discharge Summary Admit Date: 02/13/20 Discharge Date: 02/18/20 Discharging Provider: Og Warner Primary Care Provider: Lorenzo Washington Code Status: Do Not Attempt Resuscitation Condition at Discharge: Fair Discharge Disposition: 03 SNF DC/Xfer Discharge Facility Name: [facility] - DIAGNOSES Admission Diagnoses: Sepsis Acute on chronic renal failure Chronic indwelling Reyes catheter Candidal intertrigo Weight loss, abnormal Peripheral neurogenic pain Discharge Diagnoses with Status of Each Condition: Sepsis - resolved Catheter associated urinary tract infection - improved Cholecystitis - stable. Coag negative staph bacteremia - resolved. Advanced dementia - stable. Acute kidney injury - resolved. Chronic indwelling Reyes catheter - stable. Hypertension - stable. Neuropathy - stable. - HPI History of Present Illness: H&P per Dr. Ha: This unfortunate lady has [facility]. Possibly since about 2012. Unclear. Her youngest daughter is here in the room but states that she does know a lot about her mom. At one point this daughter left home at the age of 11 to go live with a big sister, and then return to live with her mom at age 15. By then she was pretty independent and she and her mom live their own lives. Kira is the power of erisa attorney and the oldest daughter who knows the most. Due to her mental illness of paranoia and possible schizophrenia, as well as BKA, her oldest daughter was unable to take care of her and she was placed for permanent [facility] a [facility]. She has been living there since. She has been intermittently hospitalized in our healthcare system. She is followed by palliative care on a sporadic basis. The last time she was admitted was February 2018 for a UTI with sepsis resulting in severe metabolic encephalopathy, acute kidney failure. She had been brought to the emergency room after she was found on the floor in her room at the [facility]. She had an unwitnessed fall out of her wheelchair and was found facedown on the floor, 90 degree angle, with her but still in the chair, face on the floor. The daughter states that the last time she saw mom was before July 2019. At that time mom was baseline with her mental illness. Alert, cheerful, and always happy to see her daughter. In visiting her mom today, she is sedated, cachectic, and where she is ever seen her. She has had decreasing responsiveness over the last 2 days. She does have a history of recurrent UTIs from a chronic indwelling suprapubic catheter. In April 2016 she had a right percutaneous nephrolithotomy for a large kidney stone. With this episode, the family was contacted, and they did want her transported to the emergency room for treatment. However, they do not want pressors, central lines, intubation, CPR, or surgery. They would like antibiotics, symptom control management. If she survives this, that is well in good and she can return to the [facility] facility. If she does not they are comfortable with this. In the emergency room she was mildly hypothermic at 36.1. Blood pressure was low at 72/54. Respirations were 30 and she was 95% on room air. She was minimally responsive, occasionally moaning, sweaty, pale. She had a tender right upper quadrant. Diminished breath sounds bilaterally with crackles but no respiratory distress. A suprapubic catheter in place. A left AKA. Her white cell count was 21.9 thousand. 4% bands. BUN 33, creatinine 1.5. Lactic acid 2.4. In spite of of IV fluids, antibiotics, lactic acid is now 2.8. Her 2 IV lines have infiltrated and she has been seen by anesthesia to get an external jugular IV. Liver enzymes are elevated with a bili of 1.5, AST 188, ALT 311. Chest x-ray has no acute pulmonary process. Abdominal ultrasound has luminal stones without wall thickening and suggestive of cholecystitis with cholelithiasis. There are multiple foci within the gallbladder. Urinalysis has small amount of occult blood. Positive nitrites. Large amount of leukocyte Estrace. Too numerous to count red cells. Greater than 25 white cells. No squamous epithelial cells. Bacteria are seen. - CONSULTS | PROCEDURES Consultations: Social Work Procedures: Abdominal ultrasound on February 12 was concerning for cholecystitis with cholelithiasis. - HOSPITAL COURSE Hospital Course: She was admitted to the floor for sepsis secondary to possible cholecystitis and catheter associated urinary tract infection. She was hypotensive and required IV fluids. Family stated that the patient is a DNR with limited interventions and focus on comfort. They do not want ICU care or central line or vasopressors or any procedures. She was treated with IV antibiotics with Flagyl and aztreonam initially given her allergies. Urine culture grew Klebsiella and she was transitioned to ciprofloxacin. Flagyl was discontinued as was felt less likely that she had cholecystitis. Initial blood cultures did grow staph epidermidis which was felt to be a contaminant. Repeat blood cultures have been negative. Her blood pressure has remained stable and her white count has imp roved on a daily basis. She will be discharged on oral ciprofloxacin for 10 more days to complete 2 weeks of therapy. Her catheter was exchanged during this hospitalization. Her verapamil will be discontinued on discharge as her heart rate has been stable in the 50s. She was initially minimally responsive upon her arrival to our facility but she is now awake but she does not converse very much. - ALLERGIES Allergies/Adverse Reactions: Allergies Allergy/AdvReac Type Severity Reaction Status Date / Time erythromycin base Allergy Severe Anaphylaxis Verified 02/12/18 23:19 [Erythromycin Base] Penicillins Allergy Severe Anaphylaxis Verified 02/12/18 23:19 Sulfa (Sulfonamide Allergy Severe Redness/High Verified 02/12/18 23:19 Antibiotics) fever lisinopril Allergy Unknown Unknown Verified 02/12/18 23:19 ceftriaxone Allergy Rash Verified 02/12/18 23:19 quinidine Allergy Rash Verified 02/12/18 23:19 - MEDICATIONS Home Medications: Ambulatory Orders Medication Instructions Recorded Confirmed Losartan [Cozaar] 100 mg PO DAILY 02/14/17 02/14/20 tiZANidine [Zanaflex] 4 mg PO BID 02/14/17 02/14/20 Melatonin 6 mg PO QPM 10/06/17 02/14/20 Pregabalin [Lyrica] 100 mg PO TID 10/06/17 02/14/20 polyethylene glycoL 3350 [Miralax] 17 gm PO DAILY 10/06/17 02/14/20 Risperidone [Risperdal] 4 mg PO QPM 05/05/18 02/18/20 oxyCODONE [Roxicodone] 5 mg PO Q4HR PRN 05/05/18 02/14/20 bisacodyL [Dulcolax] 5 mg PO DAILY PRN 07/14/18 02/14/20 Acetaminophen 500 mg PO Q6H PRN MDD 3000mg per 12/03/18 02/14/20 24 hours Albuterol Sulfate [Albuterol 2 puffs INH Q8H PRN 12/03/18 02/14/20 Sulfate Hfa] Aspirin [Aspirin EC] 81 mg PO DAILY 12/03/18 02/14/20 Biofreeze Gel 4% 1 ea TOP BID PRN MDD on left stump 12/03/18 02/14/20 Duloxetine HCl [Cymbalta] 120 mg PO DAILY 12/03/18 02/14/20 Ferrous Gluconate 240 mg PO DAILY 12/03/18 02/14/20 Furosemide 20 mg PO DAILY 12/03/18 02/14/20 Nystatin 1 applic TOP BID PRN 12/03/18 02/14/20 Senna [Senokot] 8.6 mg PO BID 12/03/18 02/14/20 Magnesium Hydroxide [Milk of 30 ml PO Q24H PRN 02/14/20 02/14/20 Magnesia] Calcium Carbonate [Tums (Calcium 500 mg PO BID #60 tablet 02/18/20 Carbonate 500mg)] Ciprofloxacin [Cipro] 500 mg PO BID 10 Days #40 tablet 02/18/20 Potassium Chloride 20 meq PO DAILY #30 tablet.er 02/18/20 amLODIPine [Norvasc] 5 mg PO DAILY #30 tablet 02/18/20 oxyCODONE [Roxicodone] 5 mg PO BID #8 tablet 02/18/20 - PHYSICAL EXAM AT DISCHARGE General Appearance: positive: No acute distress, Alert Eyes Bilateral: positive: Normal inspection ENT: positive: ENT inspection nml Neck: positive: Nml inspection Respiratory: positive: No respiratory distress, Other (Diminished in the bases). negative: Wheezes, Rales Cardiovascular: positive: Regular rate & rhythm, No murmur, Bradycardia. negative: Tachycardia Abdomen: positive: Non-tender, No distention. negative: Tenderness, Guarding, Rebound Skin: positive: Warm, Dry Extremities: positive: Other (Left BKA.) Neurologic/Psychiatric: positive: Other (She appears comfortable. She will say yes or no but otherwise is minimally conversant. She will respond to her name.). negative: Disoriented to person Physical Exam Other/Comments: Vital Signs - 24 hr 02/17/20 02/17/20 02/18/20 16:00 23:41 08:00 Temperature 35.8 C L 36.8 C 36.1 C L Heart Rate [ 56 L 56 L Brachial] Heart Rate [ 60 Radial] Respiratory 18 16 20 Rate Blood Pressure 170/71 H [Left Brachial artery] Blood Pressure 150/74 H [Right Ankle] Blood Pressure 177/77 H [Right Brachial artery] O2 Saturation 98 97 98 02/18/20 12:12 Temperature Heart Rate [ 67 Brachial] Heart Rate [ Radial] Respiratory 18 Rate Blood Pressure [Left Brachial artery] Blood Pressure [Right Ankle] Blood Pressure 152/70 H [Right Brachial artery] O2 Saturation 97 Oxygen O2 Source Room air - LABS Result Diagrams: 02/17/20 06:23 02/17/20 06:23 Other Lab Results: Laboratory Results - last 24 hr 02/18/20 02/18/20 02/18/20 05:15 05:15 05:20 WBC 11.6 H RBC 3.70 L Hgb 9.8 L Hct 30.8 L MCV 83.2 MCH 26.5 L MCHC 31.8 L RDW 16.6 H Plt Count 244 MPV 11.3 H Neut # (Auto) Not Reportable Lymph # (Auto) Not Reportable [place] # (Auto) Not Reportable Eos # (Auto) Not Reportable Baso # (Auto) Not Reportable Absolute Nucleated RBC Not Reportable Total Counted 100 Band Neuts % (Manual) 1 Abnorm Lymph % (Manual) 0 Metamyelocytes % 1 H Myelocytes % 1 H Nucleated RBC % Not Reportable Neutrophils # (Manual) 8.2 H Lymphocytes # (Manual) 2.2 Monocytes # (Manual) 0.7 Eosinophils # (Manual) 0.2 Basophils # (Manual) 0.0 Differential Comment MANUAL DIFFERENTIAL WBC Morphology NORMAL APPEARANCE Platelet Estimate NORMAL (130-450,000) Platelet Morphology NORMAL APPEARANCE RBC Morph Micro Appear 2+ HYPOCHROMASIA Sodium 145 Potassium 3.0 L Chloride 114 H Carbon Dioxide 24 Anion Gap 7.0 BUN 14 Creatinine 0.6 Estimated GFR (MDRD) 97 Glucose 118 H Calcium 8.4 L Phosphorus 2.7 Magnesium 1.8 Total Bilirubin 0.6 Direct Bilirubin 0.1 AST 33 ALT 51 Alkaline Phosphatase 48 Total Protein 5.9 L Albumin 2.3 L Globulin 3.6 - DIAGNOSTIC IMAGING Diagnostic Imaging Results: Final report reviewed - SEPSIS Current Stage of Sepsis: Resolved Possible source of Sepsis: GI tract/intra-abdominal Sepsis Criteria: Recorded Temperature greater than 38.3C or Less than 36C, Recorded Respiratory Rate greater than 20, WBC count greater than 12,000 or less than 4000, WAIST PLEATER: altered consciousness (unrelated to primary neuro pathology), SBP drop more than 40mHg, Metabolic: lactate > 2 mmol/L - TIME SPENT Time Spent in Discharge (Minutes): 33"
[2020-02-18] MEDS ORDERED: FERROUS GLUCONATE 324 MG TABLET PO SCH (12:00)
[2020-02-18 12:13] VITALS: BP 152/70
[2020-02-18] MEDS ORDERED: risperiDONE 1 MG TABLET PO SCH (21:00)
== END 2020-02-18 13:40 | DRG 698 ==
LOC: EDUNIT# → ED 14:21 → MS2 16:55
PROVIDERS: ADMIT Internal Medicine; ATTEND Internal Medicine
DX: A41.9 Sepsis, unspecified organism (principal); N30.00 Acute cystitis without hematuria; T83.511A Infection and inflammatory reaction due to indwelling urethral catheter, initial encounter; A41.89 Other specified sepsis; R65.21 Severe sepsis with septic shock; E43 Unspecified severe protein-calorie malnutrition; G93.40 Encephalopathy, unspecified; N17.9 Acute kidney failure, unspecified; K80.10 Calculus of gallbladder with chronic cholecystitis without obstruction; N39.0 Urinary tract infection, site not specified; I12.9 Hypertensive chronic kidney disease with stage 1 through stage 4 chronic kidney disease, or unspecified chronic kidney disease; E11.22 Type 2 diabetes mellitus with diabetic chronic kidney disease; N18.9 Chronic kidney disease, unspecified; E11.42 Type 2 diabetes mellitus with diabetic polyneuropathy; K21.9 Gastro-esophageal reflux disease without esophagitis; F20.9 Schizophrenia, unspecified; B37.2 Candidiasis of skin and nail; R62.7 Adult failure to thrive; K59.09 Other constipation; F03.90 Unspecified dementia, unspecified severity, without behavioral disturbance, psychotic disturbance, mood disturbance, and anxiety; E78.00 Pure hypercholesterolemia, unspecified; G89.29 Other chronic pain; M54.9 Dorsalgia, unspecified; Y73.8 Miscellaneous gastroenterology and urology devices associated with adverse incidents, not elsewhere classified; Z66 Do not resuscitate; Z51.5 Encounter for palliative care; Z20.828 Contact with and (suspected) exposure to other viral communicable diseases; Z89.512 Acquired absence of left leg below knee; Z68.29 Body mass index [BMI] 29.0-29.9, adult; Z91.81 History of falling; Z79.51 Long term (current) use of inhaled steroids; Z79.82 Long term (current) use of aspirin; Z79.891 Long term (current) use of opiate analgesic; Z87.01 Personal history of pneumonia (recurrent); Z87.440 Personal history of urinary (tract) infections; Z99.3 Dependence on wheelchair
CPT/HCPCS: 36415; 71045; 76705; 80048; 80053; 80076; 80202; 81001; 83605; 83690; 83735; 84100; 85025; 85610; 85730; 87040; 87077; 87086; 87181; 87640; 96365; 96366; 96368; 99285; A6250; A9270; J3370; J3490; J7120; J8499; U0004; 81003

== ENCOUNTER 2020-02-18 13:42 | Outpatient (CLI) | payer MEDICARE, MEDICAID | END 2020-02-18 13:43 | disposition home or self-care (01) | LOC: EMS 13:42 | PROVIDERS: ATTEND Surgery | DX: A41.9 Sepsis, unspecified organism (principal); R41.82 Altered mental status, unspecified; Z74.01 Bed confinement status | CPT/HCPCS: A0425; A0428 ==

== ENCOUNTER 2020-02-23 08:00 | Outpatient (CLI) | payer MEDICARE, MEDICAID ==
[2020-02-23 21:29] LABS: ALBUMIN 2.3 g/dL (3.2-5.5); ALBUMIN/GLOBULIN RATIO 0.7 (1.0-2.2); BASOPHILS % (AUTO) 0.2 %; BILIRUBIN,TOTAL 0.3 mg/dL (0.2-1.0); CALCIUM 8.6 mg/dL (8.5-10.3); CREATININE 0.9 mg/dL (0.4-1.0); EOSINOPHILS # (AUTO) 0.3 10^3/uL (0.0-0.7); EOSINOPHILS % (AUTO) 4.2 %; HGB - HEMOGLOBIN 9.8 g/dL (12.0-16.0); LYMPHOCYTES # (AUTO) 1.7 10^3/uL (1.5-3.5); LYMPHOCYTES % (AUTO) 21.2 %; MEAN CORPUSCULAR HEMOGLOBIN 26.7 pg (27.0-31.0); MEAN CORPUSCULAR HGB CONC 30.8 g/dL (32.0-36.0); MEAN CORPUSCULAR VOLUME 86.6 fL (81.0-99.0); MEAN PLATELET VOLUME 10.8 fL (7.9-10.8); MONOCYTES # (AUTO) 0.6 10^3/uL (0.0-1.0); MONOCYTES % (AUTO) 6.9 %; NEUTROPHILS # (AUTO) 5.4 10^3/uL (1.5-6.6); NEUTROPHILS % (AUTO) 66.2 %; PLT - PLATELET COUNT 375 10^3/uL (130-450); RED BLOOD COUNT 3.67 10^6/uL (4.20-5.40); RED CELL DISTRIBUTION WIDTH 16.5 % (12.0-15.0); TOTAL PROTEIN 5.8 g/dL (6.7-8.2); WHITE BLOOD COUNT 8.2 x10^3/uL (4.8-10.8)
== END 2020-02-23 23:59 | disposition home or self-care (01) ==
LOC: LAB.R 08:00
DX: N39.0 Urinary tract infection, site not specified (principal)
CPT/HCPCS: 80053; 85025

== ENCOUNTER 2020-02-27 20:00 | Outpatient (CLI) | payer MEDICARE, MEDICAID ==
[2020-02-28 10:56] LABS: ALBUMIN 2.6 g/dL (3.2-5.5); ALBUMIN/GLOBULIN RATIO 0.7 (1.0-2.2); BASOPHILS # (AUTO) 0.1 10^3/uL (0.0-0.1); BASOPHILS % (AUTO) 0.6 %; BILIRUBIN,TOTAL 0.3 mg/dL (0.2-1.0); CALCIUM 9.1 mg/dL (8.5-10.3); CREATININE 1.1 mg/dL (0.4-1.0); EOSINOPHILS # (AUTO) 0.3 10^3/uL (0.0-0.7); EOSINOPHILS % (AUTO) 3.9 %; HGB - HEMOGLOBIN 10.5 g/dL (12.0-16.0); LYMPHOCYTES # (AUTO) 1.9 10^3/uL (1.5-3.5); LYMPHOCYTES % (AUTO) 22.9 %; MEAN CORPUSCULAR HEMOGLOBIN 26.7 pg (27.0-31.0); MEAN CORPUSCULAR HGB CONC 31.1 g/dL (32.0-36.0); MEAN PLATELET VOLUME 11.1 fL (7.9-10.8); MONOCYTES # (AUTO) 0.7 10^3/uL (0.0-1.0); MONOCYTES % (AUTO) 8.5 %; NEUTROPHILS # (AUTO) 5.3 10^3/uL (1.5-6.6); NEUTROPHILS % (AUTO) 63.6 %; PLT - PLATELET COUNT 439 10^3/uL (130-450); RED BLOOD COUNT 3.93 10^6/uL (4.20-5.40); RED CELL DISTRIBUTION WIDTH 16.4 % (12.0-15.0); TOTAL PROTEIN 6.5 g/dL (6.7-8.2); WHITE BLOOD COUNT 8.4 x10^3/uL (4.8-10.8)
== END 2020-02-27 23:59 ==
LOC: LAB.R 20:00
DX: N39.0 Urinary tract infection, site not specified (principal); I25.9 Chronic ischemic heart disease, unspecified
CPT/HCPCS: 80053; 85025

== ENCOUNTER 2020-04-26 07:15 | Outpatient (CLI) | payer MEDICARE, MEDICAID ==
[2020-04-26 10:30] LABS: BASOPHILS # (AUTO) 0.1 10^3/uL (0.0-0.1); BASOPHILS % (AUTO) 0.7 %; EOSINOPHILS # (AUTO) 0.5 10^3/uL (0.0-0.7); EOSINOPHILS % (AUTO) 7.4 %; HGB - HEMOGLOBIN 11.1 g/dL (12.0-16.0); LYMPHOCYTES # (AUTO) 3.2 10^3/uL (1.5-3.5); LYMPHOCYTES % (AUTO) 44.8 %; MEAN CORPUSCULAR HEMOGLOBIN 26.7 pg (27.0-31.0); MEAN CORPUSCULAR HGB CONC 30.3 g/dL (32.0-36.0); MEAN PLATELET VOLUME 10.7 fL (7.9-10.8); MONOCYTES # (AUTO) 0.5 10^3/uL (0.0-1.0); MONOCYTES % (AUTO) 6.5 %; NEUTROPHILS # (AUTO) 2.9 10^3/uL (1.5-6.6); NEUTROPHILS % (AUTO) 40.3 %; PLT - PLATELET COUNT 237 10^3/uL (130-450); RED BLOOD COUNT 4.16 10^6/uL (4.20-5.40); RED CELL DISTRIBUTION WIDTH 15.1 % (12.0-15.0); WHITE BLOOD COUNT 7.1 x10^3/uL (4.8-10.8)
[2020-04-26 10:43] LABS: CALCIUM 9.3 mg/dL (8.5-10.3); CREATININE 0.8 mg/dL (0.4-1.0)
== END 2020-04-26 23:59 | disposition home or self-care (01) ==
LOC: LAB.R 07:15
DX: D50.9 Iron deficiency anemia, unspecified (principal); M62.81 Muscle weakness (generalized)
CPT/HCPCS: 36415; 80048; 84443; 85025

== ENCOUNTER 2020-05-08 18:49 | Outpatient (CLI) | payer MEDICARE, MEDICAID ==
[2020-05-08 20:00] LABS: BASOPHILS % (AUTO) 0.5 %; EOSINOPHILS # (AUTO) 0.4 10^3/uL (0.0-0.7); EOSINOPHILS % (AUTO) 4.3 %; HGB - HEMOGLOBIN 10.2 g/dL (12.0-16.0); LYMPHOCYTES # (AUTO) 3.3 10^3/uL (1.5-3.5); LYMPHOCYTES % (AUTO) 39.7 %; MEAN CORPUSCULAR HEMOGLOBIN 26.4 pg (27.0-31.0); MEAN CORPUSCULAR VOLUME 87.9 fL (81.0-99.0); MEAN PLATELET VOLUME 11.1 fL (7.9-10.8); MONOCYTES # (AUTO) 0.7 10^3/uL (0.0-1.0); NEUTROPHILS # (AUTO) 3.8 10^3/uL (1.5-6.6); NEUTROPHILS % (AUTO) 46.1 %; PLT - PLATELET COUNT 206 10^3/uL (130-450); RED BLOOD COUNT 3.87 10^6/uL (4.20-5.40); RED CELL DISTRIBUTION WIDTH 15.3 % (12.0-15.0); WHITE BLOOD COUNT 8.2 x10^3/uL (4.8-10.8)
[2020-05-08 20:20] LABS: ALBUMIN/GLOBULIN RATIO 0.9 (1.0-2.2); BILIRUBIN,TOTAL 0.3 mg/dL (0.2-1.0); CALCIUM 8.9 mg/dL (8.5-10.3); CREATININE 0.9 mg/dL (0.4-1.0); TOTAL PROTEIN 6.4 g/dL (6.7-8.2)
== END 2020-05-08 23:59 | disposition home or self-care (01) ==
LOC: LAB.R 18:49
DX: U07.1 COVID-19 (principal)
CPT/HCPCS: 36415; 80053; 85025

== ENCOUNTER 2020-07-12 16:15 | Outpatient (CLI) | payer MEDICARE, MEDICAID ==
[2020-07-12 19:02] LABS: BASOPHILS % (AUTO) 0.6 %; EOSINOPHILS # (AUTO) 0.3 10^3/uL (0.0-0.7); EOSINOPHILS % (AUTO) 4.3 %; HCT - HEMATOCRIT 35.6 % (37.0-47.0); HGB - HEMOGLOBIN 11.3 g/dL (12.0-16.0); LYMPHOCYTES # (AUTO) 2.4 10^3/uL (1.5-3.5); LYMPHOCYTES % (AUTO) 36.7 %; MEAN CORPUSCULAR HGB CONC 31.7 g/dL (32.0-36.0); MONOCYTES # (AUTO) 0.7 10^3/uL (0.0-1.0); NEUTROPHILS # (AUTO) 3.1 10^3/uL (1.5-6.6); NEUTROPHILS % (AUTO) 48.1 %; PLT - PLATELET COUNT 244 10^3/uL (130-450); RED BLOOD COUNT 4.19 10^6/uL (4.20-5.40); RED CELL DISTRIBUTION WIDTH 15.2 % (12.0-15.0); WHITE BLOOD COUNT 6.5 x10^3/uL (4.8-10.8)
[2020-07-12 19:21] LABS: ALBUMIN 3.2 g/dL (3.2-5.5); ALKALINE PHOSPHATASE 56 IU/L (42-121); ALT ALANINE AMINOTRANSFERASE < 10 IU/L (10-60); AST ASPARTATE AMINOTRANSFERASE 19 IU/L (10-42); BILIRUBIN,TOTAL 0.5 mg/dL (0.2-1.0); BUN - BLOOD UREA NITROGEN 29 mg/dL (6-20); CALCIUM 8.9 mg/dL (8.5-10.3); CARBON DIOXIDE - CO2 27 mmol/L (21-32); CHLORIDE 97 mmol/L (101-111); CREATININE 0.8 mg/dL (0.4-1.0); GFR - MDRD 70 (>89); GLUCOSE 119 mg/dL (70-100); POTASSIUM 4.3 mmol/L (3.5-5.0); SODIUM 131 mmol/L (135-145); TOTAL PROTEIN 6.5 g/dL (6.7-8.2)
== END 2020-07-12 23:59 | disposition home or self-care (01) ==
LOC: LAB.R 16:15
DX: I50.9 Heart failure, unspecified (principal); D50.9 Iron deficiency anemia, unspecified; Z79.899 Other long term (current) drug therapy; F20.9 Schizophrenia, unspecified
CPT/HCPCS: 80053; 82728; 85025

== ENCOUNTER 2020-08-25 16:00 | Outpatient (CLI) | payer MEDICARE, MEDICAID ==
[2020-08-25 21:16] LABS: BASOPHILS # (AUTO) 0.1 10^3/uL (0.0-0.1); BASOPHILS % (AUTO) 0.8 %; EOSINOPHILS # (AUTO) 0.3 10^3/uL (0.0-0.7); EOSINOPHILS % (AUTO) 4.9 %; HGB - HEMOGLOBIN 12.1 g/dL (12.0-16.0); LYMPHOCYTES # (AUTO) 2.4 10^3/uL (1.5-3.5); LYMPHOCYTES % (AUTO) 37.3 %; MEAN CORPUSCULAR HEMOGLOBIN 27.2 pg (27.0-31.0); MEAN CORPUSCULAR HGB CONC 31.8 g/dL (32.0-36.0); MEAN CORPUSCULAR VOLUME 85.4 fL (81.0-99.0); MEAN PLATELET VOLUME 11.4 fL (7.9-10.8); MONOCYTES # (AUTO) 0.7 10^3/uL (0.0-1.0); MONOCYTES % (AUTO) 10.5 %; NEUTROPHILS % (AUTO) 46.3 %; PLT - PLATELET COUNT 234 10^3/uL (130-450); RED BLOOD COUNT 4.45 10^6/uL (4.20-5.40); RED CELL DISTRIBUTION WIDTH 15.2 % (12.0-15.0); WHITE BLOOD COUNT 6.5 x10^3/uL (4.8-10.8)
[2020-08-25 21:17] LABS: BILIRUBIN,URINE NEGATIVE (NEGATIVE); GLUCOSE, URINE (UA) NEGATIVE (NEGATIVE); KETONES,URINE (UA) NEGATIVE (NEGATIVE); LEUKOCYTE ESTERASE, URINE LARGE (NEGATIVE); NITRITE,URINE POSITIVE (NEGATIVE); OCCULT BLOOD,URINE LARGE (NEGATIVE); PH,URINE 6.5 PH (5.0-7.5); PROTEIN,URINE NEGATIVE (NEGATIVE); UROBILINOGEN,URINE 0.2 (NORMAL) E.U./dL (NORMAL)
[2020-08-25 21:18] LABS: CLARITY,URINE CLEAR (CLEAR)
[2020-08-25 21:21] LABS: BACTERIA,URINE Few /HPF (None Seen); MUCUS,URINE Few Strands; RBC,URINE TNTC /HPF (0-5); SQUAMOUS EPITHELIAL CELL,UR FEW Squamous (<= Few)
[2020-08-25 21:25] LABS: ALBUMIN 3.5 g/dL (3.2-5.5); ALBUMIN/GLOBULIN RATIO 0.9 (1.0-2.2); BILIRUBIN,TOTAL 0.3 mg/dL (0.2-1.0); CALCIUM 9.3 mg/dL (8.5-10.3); CREATININE 0.7 mg/dL (0.4-1.0); POTASSIUM 4.1 mmol/L (3.5-5.0); TOTAL PROTEIN 7.3 g/dL (6.7-8.2)
== END 2020-08-25 23:59 | disposition home or self-care (01) ==
LOC: LAB.R 16:00
DX: I13.0 Hypertensive heart and chronic kidney disease with heart failure and stage 1 through stage 4 chronic kidney disease, or unspecified chronic kidney disease (principal); D50.9 Iron deficiency anemia, unspecified; N39.0 Urinary tract infection, site not specified
CPT/HCPCS: 80053; 81001; 81003; 85025; 87086

== ENCOUNTER 2021-01-18 11:35 | Outpatient (CLI) | payer MEDICARE, MEDICAID ==
[2021-01-18 11:49] LABS: BASOPHILS % (AUTO) 0.5 %; EOSINOPHILS # (AUTO) 0.3 10^3/uL (0.0-0.7); EOSINOPHILS % (AUTO) 4.4 %; HCT - HEMATOCRIT 39.2 % (37.0-47.0); HGB - HEMOGLOBIN 12.6 g/dL (12.0-16.0); LYMPHOCYTES # (AUTO) 1.8 10^3/uL (1.5-3.5); LYMPHOCYTES % (AUTO) 24.5 %; MEAN CORPUSCULAR HEMOGLOBIN 27.6 pg (27.0-31.0); MEAN CORPUSCULAR HGB CONC 32.1 g/dL (32.0-36.0); MEAN CORPUSCULAR VOLUME 85.8 fL (81.0-99.0); MEAN PLATELET VOLUME 11.1 fL (7.9-10.8); MONOCYTES # (AUTO) 0.5 10^3/uL (0.0-1.0); MONOCYTES % (AUTO) 7.4 %; NEUTROPHILS # (AUTO) 4.6 10^3/uL (1.5-6.6); NEUTROPHILS % (AUTO) 62.9 %; PLT - PLATELET COUNT 220 10^3/uL (130-450); RED BLOOD COUNT 4.57 10^6/uL (4.20-5.40); RED CELL DISTRIBUTION WIDTH 15.1 % (12.0-15.0); WHITE BLOOD COUNT 7.3 x10^3/uL (4.8-10.8)
[2021-01-18 12:01] LABS: ALBUMIN 3.8 g/dL (3.2-5.5); BILIRUBIN,TOTAL 0.4 mg/dL (0.2-1.0); CALCIUM 9.5 mg/dL (8.5-10.3); CREATININE 0.8 mg/dL (0.4-1.0); TOTAL PROTEIN 7.6 g/dL (6.7-8.2)
== END 2021-01-18 11:36 | disposition home or self-care (01) ==
LOC: LAB 11:35 → LAB.R 11:36
DX: I11.0 Hypertensive heart disease with heart failure (principal); I50.9 Heart failure, unspecified; E78.5 Hyperlipidemia, unspecified; R53.1 Weakness
CPT/HCPCS: 80053; 85025

== ENCOUNTER 2021-07-17 08:00 | Outpatient (CLI) | payer MEDICARE, MEDICAID ==
[2021-07-17 19:23] LABS: BILIRUBIN,URINE NEGATIVE (NEGATIVE); GLUCOSE, URINE (UA) NEGATIVE (NEGATIVE); KETONES,URINE (UA) NEGATIVE (NEGATIVE); LEUKOCYTE ESTERASE, URINE SMALL (NEGATIVE); NITRITE,URINE POSITIVE (NEGATIVE); OCCULT BLOOD,URINE MODERATE (NEGATIVE); PROTEIN,URINE NEGATIVE (NEGATIVE); UROBILINOGEN,URINE 0.2 (NORMAL) E.U./dL (NORMAL)
[2021-07-17 19:37] LABS: CLARITY,URINE SL. CLOUDY (CLEAR)
[2021-07-17 19:38] LABS: BACTERIA,URINE Rare /HPF (None Seen); RBC,URINE 0-5 /HPF (0-5); SQUAMOUS EPITHELIAL CELL,UR RARE Squamous (<= Few)
[2021-07-17 19:40] LABS: BASOPHILS % (AUTO) 0.4 %; EOSINOPHILS # (AUTO) 0.6 10^3/uL (0.0-0.7); EOSINOPHILS % (AUTO) 7.6 %; HCT - HEMATOCRIT 37.1 % (37.0-47.0); HGB - HEMOGLOBIN 11.9 g/dL (12.0-16.0); LYMPHOCYTES # (AUTO) 2.3 10^3/uL (1.5-3.5); LYMPHOCYTES % (AUTO) 28.9 %; MEAN CORPUSCULAR HEMOGLOBIN 27.2 pg (27.0-31.0); MEAN CORPUSCULAR HGB CONC 32.1 g/dL (32.0-36.0); MEAN CORPUSCULAR VOLUME 84.7 fL (81.0-99.0); MEAN PLATELET VOLUME 11.5 fL (7.9-10.8); MONOCYTES # (AUTO) 0.7 10^3/uL (0.0-1.0); NEUTROPHILS # (AUTO) 4.2 10^3/uL (1.5-6.6); NEUTROPHILS % (AUTO) 53.8 %; PLT - PLATELET COUNT 232 10^3/uL (130-450); RED BLOOD COUNT 4.38 10^6/uL (4.20-5.40); RED CELL DISTRIBUTION WIDTH 14.7 % (12.0-15.0); WHITE BLOOD COUNT 7.8 x10^3/uL (4.8-10.8)
[2021-07-17 19:43] LABS: ALBUMIN 3.5 g/dL (3.2-5.5); ALBUMIN/GLOBULIN RATIO 1.1 (1.0-2.2); BILIRUBIN,TOTAL 0.4 mg/dL (0.2-1.0); CALCIUM 8.9 mg/dL (8.5-10.3); CREATININE 0.9 mg/dL (0.4-1.0); POTASSIUM 3.9 mmol/L (3.5-5.0); TOTAL PROTEIN 6.8 g/dL (6.7-8.2)
== END 2021-07-17 23:59 | disposition home or self-care (01) ==
LOC: LAB.R 08:00
PROVIDERS: ATTEND Hospitalist
DX: N39.0 Urinary tract infection, site not specified (principal)
CPT/HCPCS: 80053; 81001; 81003; 85025; 87077; 87086; 87181

== ENCOUNTER 2021-07-26 09:43 | Emergency (ER) | payer MEDICARE, MEDICAID ==
--- NOTE | 2021-07-26 11:14 | ED Physician Documentation ---
History of Present Illness - Stated complaint Stated Complaint: IV PLACEMENT - Chief complaint Chief Complaint: General - History obtained from History obtained from: Patient - History of Present Illness Timing: Today - Additonal information Additional information: 76-year-old alf resident who has an indwelling Flores catheter and infection that requires IV antibiotics is presented to the emergency department for an IV start. She states that she is not currently having a fever or vomiting. She does have indwelling Flores catheter and resistant organisms And she is allergic to both penicillin and sulfa. Review of Systems Constitutional: denies: Fever Respiratory: denies: Cough GI: denies: Nausea, Vomiting PD PAST MEDICAL HISTORY - Past Medical History Cardiovascular: Hypertension, High cholesterol Respiratory: Asthma, Pneumonia Neuro: Headaches, Peripheral neuropathy Endocrine/Autoimmune: Type 2 diabetes GI: GERD, C.difficile, Chronic constipation : Chronic bladder infection, Kidney stones, Other HEENT: Other Psych: Depression, Anxiety, Schizophrenia Musculoskeletal: Osteoarthritis, Chronic back pain, Other Derm: Other - Past Surgical History Past Surgical History: Yes General: Appendectomy, Colonoscopy, EGD Ortho: Carpal Tunnel surgery, Spine surgery, Amputation, 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, Other Cardiovascular: Other - Present Medications Home Medications: Ambulatory Orders Medication Instructions Recorded Confirmed Losartan [Cozaar] 100 mg PO DAILY 02/14/17 02/14/20 tiZANidine [Zanaflex] 4 mg PO BID 02/14/17 02/14/20 Melatonin 6 mg PO QPM 10/06/17 02/14/20 Pregabalin [Lyrica] 100 mg PO TID 10/06/17 02/14/20 polyethylene glycoL 3350 [Miralax] 17 gm PO DAILY 10/06/17 02/14/20 oxyCODONE [Roxicodone] 5 mg PO Q4HR PRN 05/05/18 02/14/20 risperiDONE [Risperdal] 4 mg PO QPM 05/05/18 02/18/20 bisacodyL [Dulcolax] 5 mg PO DAILY PRN 07/14/18 02/14/20 Acetaminophen 500 mg PO Q6H PRN MDD 3000mg per 12/03/18 02/14/20 24 hours Albuterol Sulfate [Albuterol 2 puffs INH Q8H PRN 12/03/18 02/14/20 Sulfate Hfa] Aspirin [Aspirin EC] 81 mg PO DAILY 12/03/18 02/14/20 Biofreeze Gel 4% 1 ea TOP BID PRN MDD on left stump 12/03/18 02/14/20 Duloxetine HCl [Cymbalta] 120 mg PO DAILY 12/03/18 02/14/20 Ferrous Gluconate 240 mg PO DAILY 12/03/18 02/14/20 Furosemide 20 mg PO DAILY 12/03/18 02/14/20 Nystatin 1 applic TOP BID PRN 12/03/18 02/14/20 Senna [Senokot] 8.6 mg PO BID 12/03/18 02/14/20 Magnesium Hydroxide [Milk of 30 ml PO Q24H PRN 02/14/20 02/14/20 Magnesia] Calcium Carbonate [Tums (Calcium 500 mg PO BID #60 tablet 02/18/20 Carbonate 500mg)] Ciprofloxacin [Cipro] 500 mg PO BID 10 Days #40 tablet 02/18/20 Potassium Chloride 20 meq PO DAILY #30 tablet.er 02/18/20 amLODIPine [Norvasc] 5 mg PO DAILY #30 tablet 02/18/20 oxyCODONE [Roxicodone] 5 mg PO BID #8 tablet 02/18/20 - Allergies Allergies/Adverse Reactions: Allergies Allergy/AdvReac Type Severity Reaction Status Date / Time erythromycin base Allergy Severe Anaphylaxis Verified 07/26/21 10:09 [Erythromycin Base] Penicillins Allergy Severe Anaphylaxis Verified 07/26/21 10:09 Sulfa (Sulfonamide Allergy Severe Redness/High Verified 07/26/21 10:09 Antibiotics) fever lisinopril Allergy Unknown Unknown Verified 07/26/21 10:09 ceftriaxone Allergy Rash Verified 07/26/21 10:09 quinidine Allergy Rash Verified 07/26/21 10:09 - Social History Does the pt smoke?: No Smoking Status: Never smoker Does the pt drink ETOH?: No Does the pt have substance abuse?: No - Immunizations Immunizations are current?: No Immunizations: TDAP >10years/unknown - POLST Patient has POLST: Yes POLST Status: DNR (Comfort measures only) PD ED PE NORMAL - Vitals Vital signs reviewed: Yes (hypertensive ) - General General: No acute distress, Well developed/nourished - HEENT HEENT: Atraumatic, PERRL, EOMI - Respiratory Respiratory: No respiratory distress - Back Back: No CVA TTP, No spinal TTP - Derm Derm: Normal color, Warm and dry, No rash - Extremities Extremities: No deformity - 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, Normal speech Eye Opening: Spontaneous Motor: Obeys Commands Verbal: Oriented GCS Score: 15 - Psych Psych: Normal mood, Normal affect Results - Vitals Vitals: Vital Signs - 24 hr 07/26/21 10:01 Temperature 36.0 C L Heart Rate 77 Respiratory 16 Rate Blood Pressure 142/74 H O2 Saturation 96 Oxygen O2 Source Room air - Rads (name of study) chest Radiology: Prelim report reviewed (Impression: Right PICC line as above.), EMP read indepedently, See rad report PD MEDICAL DECISION MAKING - ED course Complexity details: reviewed old records, considered differential, d/w patient ED course: 76y/o female resident of [facility] with an indwelling flores needs IV access for treatment at [facility]. The patient is brought into the emergency department and the nurse microbiology manager checks with the alf and they have clarified in order to place a PICC line. I have consulted Dr. Dudley Sifuentes our anesthesia here and he will come to the emergency department to place a PICC line. This is done successfully and the patient is returned to [facility]. Departure - Departure Disposition: 01 Home, Self Care Clinical Impression: Difficult intravenous access, Status post peripherally inserted central catheter (PICC) central line placement Condition: Stable Instructions: ED PICC Line Care Follow-Up: EDDI DORADO MD [Primary Care Provider] -
[2021-07-26] MEDS ORDERED: ACETAMINOPHEN 325 MG TABLET PO STA (12:54)
--- NOTE | 2021-07-26 16:42 | ANESTHESIA PROCEDURE NOTE ---
Anesth Central Line Template - Central Line Central Line Preparation: Consent Obtained, Time out completed, Ultrasound used, Sterile prep and drape Central line location: Right Basilic Central line type: PICC Single Lumen Central line catheter tip site resides: Innominate vein Central line aftercare: Chlorhexidine disc placed, Secured, Placement confirmed, No pneumothorax, No complications, Bundle checklist complete, Pt tolerated well (7 cm out of skin. Midline placement. Reported to ED staff that it is midline.)
--- NOTE | 2021-07-26 16:46 | XRAY Report ---
PROCEDURE: Chest for Line Placement INDICATIONS: picc line placement TECHNIQUE: One view of the chest was acquired. COMPARISON: Chest x-ray 02/13/2020 FINDINGS: Surgical changes and devices: Right-sided PICC line is present with distal tip projecting over the br achial/SVC junction. Lungs and pleura: No pleural effusions or pneumothorax. Lungs are clear. Mediastinum: Mediastinal contours appear normal. Heart size is normal. Bones and chest wall: No suspicious bony lesions. Overlying soft tissues appear unremarkable. IMPRESSION: Right PICC line as above. Reviewed by: Radha Carrillo MD on 07/26/2021 4:45 PM PDT Approved by: Radha Carrillo MD on 07/26/2021 4:45 PM PDT Station ID: [id number]
[2021-07-26 17:08] VITALS: BP 130/72
== END 2021-07-26 17:06 | disposition home or self-care (01) ==
LOC: ED 09:43
DX: Z45.2 Encounter for adjustment and management of vascular access device (principal); I10 Essential (primary) hypertension; E11.42 Type 2 diabetes mellitus with diabetic polyneuropathy; Z96.0 Presence of urogenital implants
CPT/HCPCS: 36569; 99282; 99284; A9270

== ENCOUNTER 2021-09-08 19:05 | Outpatient (CLI) | payer MEDICARE, MEDICAID | END 2021-09-08 19:06 | disposition critical access hospital (66) | LOC: EMS 19:05 | DX: R22.0 Localized swelling, mass and lump, head (principal) | CPT/HCPCS: A0425; A0429 ==

== ENCOUNTER 2021-09-08 19:09 | Emergency (ER) | payer MEDICARE, MEDICAID ==
[2021-09-08] MEDS ORDERED: EPINEPHrine 1 MG/ML AMP IM STA (19:19)
--- NOTE | 2021-09-08 19:32 | ED Physician Documentation ---
History of Present Illness - Stated complaint Stated Complaint: ALLERGIC REACTION - Chief complaint Chief Complaint: Allergic Rx - Additonal information Additional information: 76-year-old female who is a long-term resident at [facility] presents the emergency department for evaluation of acute swelling of her upper lip. Symptoms were first noted about 1730. Staff at the care center administered prednisone Benadryl and Pepcid without resolution of the symptoms. She denies any chest pain or shortness of air. She has no tongue swelling, no swelling at the base of the floor of her mouth. She has no dyspnea. Room air saturations are 94%. History is somewhat limited from patient as she does have a history of schizophrenia as well as dementia. She does report that she had this similar symptoms many years ago. Unsure cause or etiology. Review of Systems Constitutional: reports: Reviewed and negative Ears: reports: Reviewed and negative Nose: reports: Reviewed and negative Throat: reports: Other (upper lip swelling) Cardiac: reports: Reviewed and negative Respiratory: denies: Dyspnea, Cough, Hemoptysis GI: reports: Reviewed and negative : reports: Reviewed and negative Skin: reports: Other (no hives; upper lip swelling) Musculoskeletal: reports: Reviewed and negative PD PAST MEDICAL HISTORY - Past Medical History Cardiovascular: Hypertension, High cholesterol Respiratory: Asthma, Pneumonia Neuro: Headaches, Peripheral neuropathy Endocrine/Autoimmune: Type 2 diabetes GI: GERD, C.difficile, Chronic constipation : Chronic bladder infection, Kidney stones, Other HEENT: Other Psych: Depression, Anxiety, Schizophrenia Musculoskeletal: Osteoarthritis, Chronic back pain, Other Derm: Other - Past Surgical History Past Surgical History: Yes General: Appendectomy, Colonoscopy, EGD Ortho: Carpal Tunnel surgery, Spine surgery, Amputation, 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, Other Cardiovascular: Other - Present Medications Home Medications: Ambulatory Orders Medication Instructions Recorded Confirmed Losartan [Cozaar] 50 mg PO DAILY 02/14/17 09/08/21 tiZANidine [Zanaflex] 4 mg PO BID 02/14/17 09/08/21 Melatonin 6 mg PO QPM 10/06/17 09/08/21 Pregabalin [Lyrica] 100 mg PO TID 10/06/17 09/08/21 risperiDONE [Risperdal] 4 mg PO QPM 05/05/18 09/08/21 bisacodyL [Dulcolax] 5 mg PO DAILY PRN 07/14/18 09/08/21 Aspirin [Aspirin EC] 81 mg PO DAILY 12/03/18 09/08/21 Biofreeze Gel 4% 1 ea TOP BID PRN MDD on left stump 12/03/18 09/08/21 Duloxetine HCl [Cymbalta] 120 mg PO DAILY 12/03/18 09/08/21 Ferrous Gluconate 240 mg PO DAILY 12/03/18 09/08/21 Furosemide 20 mg PO DAILY 12/03/18 09/08/21 Nystatin 1 applic TOP BID PRN 12/03/18 09/08/21 Senna [Senokot] 8.6 mg PO BID 12/03/18 09/08/21 Calcium Carbonate [Tums (Calcium 500 mg PO BID #60 tablet 02/18/20 09/08/21 Carbonate 500mg)] HYDROcod/ACETAM 5/325 [[place] 5/325] 1 - 2 tablet PO Q6H PRN 09/08/21 09/08/21 Lactobacillus Acidophilus 1 each PO DAILY 09/08/21 09/08/21 [Acidophilus Lactobacilli] Menthol [Biofreeze] 473 ml TP PRN PRN 09/08/21 09/08/21 diphenhydrAMINE [Benadryl] 25 mg PO ONCE 09/08/21 09/08/21 predniSONE [Deltasone] 40 mg PO DAILY 5 Days #10 tablet 09/08/21 - Allergies Allergies/Adverse Reactions: Allergies Allergy/AdvReac Type Severity Reaction Status Date / Time erythromycin base Allergy Severe Anaphylaxis Verified 09/08/21 19:23 [Erythromycin Base] Penicillins Allergy Severe Anaphylaxis Verified 09/08/21 19:23 Sulfa (Sulfonamide Allergy Severe Redness/High Verified 09/08/21 19:23 Antibiotics) fever lisinopril Allergy Unknown Unknown Verified 09/08/21 19:23 ceftriaxone Allergy Rash Verified 09/08/21 19:23 quinidine Allergy Rash Verified 09/08/21 19:23 - Social History Does the pt smoke?: No Smoking Status: Never smoker Does the pt drink ETOH?: No Does the pt have substance abuse?: No - Immunizations Immunizations are current?: No Immunizations: TDAP >10years/unknown - POLST Patient has POLST: Yes POLST Status: DNR (Comfort measures only) PD ED PE EXPANDED - General General: Alert, No acute distress - HEENT HEENT: Other (Swelling of the upper lip without erythema. Mallampati of 2. No dysphonia. No swelling of the lower lip tongue or floor of mouth. ) - Cardiac Cardiac: Regular Rate, Murmur Present, Radial strong equal, Pedal strong equal - Respiratory Respiratory: Clear to ausultation angel. No: Distress, Labored - Abdomen Abdomen: Normal Bowel sounds. No: Tender to palpation - Derm Derm: Normal color, Warm and dry - Extremities Extremities: Other (Left BKA) - Neuro Neuro: Alert and Oriented X 3, CNII-XII intact - GCS Eye Opening: Spontaneous Motor: Obeys Commands Verbal: Oriented Total: 15 Results - Vitals Vitals: Vital Signs - 24 hr 09/08/21 09/08/21 09/08/21 19:14 19:47 21:40 Temperature 36.1 C L Heart Rate 70 67 73 Respiratory 17 16 15 Rate Blood Pressure 145/85 H 140/80 H 131/83 H O2 Saturation 96 92 92 09/08/21 09/09/21 23:00 00:00 Temperature Heart Rate 90 83 Respiratory 15 16 Rate Blood Pressure 114/71 119/66 O2 Saturation 94 94 Oxygen O2 Source Room air - Labs Labs: Laboratory Tests 09/08/21 09/08/21 19:38 19:38 WBC 7.8 RBC 4.87 Hgb 13.1 Hct 40.2 MCV 82.5 MCH 26.9 L MCHC 32.6 RDW 14.5 Plt Count 212 MPV 10.7 Neut # (Auto) 6.5 Lymph # (Auto) 1.0 L [place] # (Auto) 0.2 Eos # (Auto) 0.1 Baso # (Auto) 0.0 Absolute Nucleated RBC 0.00 Nucleated RBC % 0.0 Sodium 134 L Potassium 4.8 Chloride 98 L Carbon Dioxide 26 Anion Gap 10.0 BUN 37 H Creatinine 0.9 Estimated GFR (MDRD) 61 L Glucose 140 H Calcium 9.3 Total Bilirubin 0.4 AST 26 ALT 16 Alkaline Phosphatase 64 Total Protein 8.2 Albumin 3.7 Globulin 4.5 H Albumin/Globulin Ratio 0.8 L Lipase 57 H PD MEDICAL DECISION MAKING - ED course Complexity details: reviewed results, re-evaluated patient, considered differential ED course: 76-year-old female who is a long-term resident at [facility] is a DNR/comfort care measures patient presented to the emergency department with acute onset isolated angioedema to her upper lip. Symptoms began about 1730. Patient was given Benadryl prednisone and Pepcid at the care facility but with no resolution of symptoms she comes here. She has no swelling of the lower lip tongue or floor of mouth. Her Mallampati is 2. She has no dysphonia. She is hemodynamically stable. I do note that she is on losartan. 1920: Patient is administered 0.3 mg of epi 2200: On reevaluation the patient's upper lip remains swollen but it has not progressed. While here in the emergency department she remains with no findings of airway compromise. Room air saturations are 96%. She does not have any swelling of the lower lip tongue or mouth. Patient will be signed out to my nighttime colleague Dr. Dowling. If she remains stable at around midnight she is cleared for discharge home. I have made the recommendation that she discontinue the use of her losartan as this is the medication in her formulary most likely to cause angioedema. Prescription for prednisone has been sent to the [facility]. Departure - Departure Disposition: Home, Self Care Clinical Impression: Angio-edema Qualifiers: Encounter type: initial encounter Qualified Code(s): T78.3XXA - Angioneurotic edema, initial encounter Condition: Stable Record reviewed to determine appropriate education?: Yes Instructions: ED Angioedema Prescriptions: predniSONE [Deltasone] 40 mg PO DAILY 5 Days #10 tablet Comments: Cherie was seen today in the emergency department because she developed swelling in her upper lip. This is a type of reaction called angioedema. It is most commonly an allergic reaction due to a class of medications to control blood pressure. Her losartan though she has been on it for a while is the medication in her formulary most likely to have caused this. I recommend that she be given no further doses of this until seen by her primary care providers who will then decide alternative medications to manage her high blood pressure. Here in the emergency department she did receive a dose of epinephrine once. While being monitored she has had no difficulty breathing or progression of her lip swelling. A prescription for prednisone has been sent to the [facility]. She should take this every day for the next 5 days. It will cause her blood sugars to be more elevated so please monitor these carefully. If at any point she begins to have difficulty breathing increased swelling to her lower lip tongue jaw or mouth then she should return immediately to the emergency department. Discharge Date/Time: 09/09/21 00:39
[2021-09-08 19:46] LABS: BASOPHILS % (AUTO) 0.4 %; EOSINOPHILS # (AUTO) 0.1 10^3/uL (0.0-0.7); HCT - HEMATOCRIT 40.2 % (37.0-47.0); HGB - HEMOGLOBIN 13.1 g/dL (12.0-16.0); LYMPHOCYTES % (AUTO) 12.2 %; MEAN CORPUSCULAR HEMOGLOBIN 26.9 pg (27.0-31.0); MEAN CORPUSCULAR HGB CONC 32.6 g/dL (32.0-36.0); MEAN CORPUSCULAR VOLUME 82.5 fL (81.0-99.0); MEAN PLATELET VOLUME 10.7 fL (7.9-10.8); MONOCYTES # (AUTO) 0.2 10^3/uL (0.0-1.0); MONOCYTES % (AUTO) 1.9 %; NEUTROPHILS # (AUTO) 6.5 10^3/uL (1.5-6.6); NEUTROPHILS % (AUTO) 84.2 %; PLT - PLATELET COUNT 212 10^3/uL (130-450); RED BLOOD COUNT 4.87 10^6/uL (4.20-5.40); RED CELL DISTRIBUTION WIDTH 14.5 % (12.0-15.0); WHITE BLOOD COUNT 7.8 x10^3/uL (4.8-10.8)
[2021-09-08 19:58] LABS: ALBUMIN 3.7 g/dL (3.2-5.5); ALBUMIN/GLOBULIN RATIO 0.8 (1.0-2.2); BILIRUBIN,TOTAL 0.4 mg/dL (0.2-1.0); CALCIUM 9.3 mg/dL (8.5-10.3); CREATININE 0.9 mg/dL (0.4-1.0); POTASSIUM 4.8 mmol/L (3.5-5.0); TOTAL PROTEIN 8.2 g/dL (6.7-8.2)
[2021-09-09 00:06] VITALS: BP 119/66
== END 2021-09-09 00:39 | disposition home or self-care (01) ==
LOC: EDUNIT# → ED 19:09
DX: T78.3XXA Angioneurotic edema, initial encounter (principal); F03.90 Unspecified dementia, unspecified severity, without behavioral disturbance, psychotic disturbance, mood disturbance, and anxiety; E11.42 Type 2 diabetes mellitus with diabetic polyneuropathy; Z79.84 Long term (current) use of oral hypoglycemic drugs; Z66 Do not resuscitate
CPT/HCPCS: 36415; 80053; 83690; 85025; 96372; 99283

== ENCOUNTER 2021-09-09 00:40 | Outpatient (CLI) | payer MEDICARE, MEDICAID | END 2021-09-09 00:41 | disposition home or self-care (01) | LOC: EMS 00:40 | PROVIDERS: ATTEND Emergency Medicine | DX: R41.0 Disorientation, unspecified (principal); T78.3XXA Angioneurotic edema, initial encounter | CPT/HCPCS: A0425; A0428 ==

== ENCOUNTER 2021-09-16 22:13 | Outpatient (CLI) | payer MEDICARE, MEDICAID | END 2021-09-16 22:14 | disposition left against medical advice (07) | LOC: EMS 22:13 | DX: Z03.89 Encounter for observation for other suspected diseases and conditions ruled out (principal) ==

== ENCOUNTER 2021-09-20 11:49 | Outpatient (CLI) | payer MEDICARE, MEDICAID ==
[2021-09-20 11:59] LABS: BASOPHILS # (AUTO) 0.1 10^3/uL (0.0-0.1); BASOPHILS % (AUTO) 0.7 %; EOSINOPHILS # (AUTO) 0.4 10^3/uL (0.0-0.7); EOSINOPHILS % (AUTO) 5.2 %; HCT - HEMATOCRIT 40.8 % (37.0-47.0); HGB - HEMOGLOBIN 13.1 g/dL (12.0-16.0); LYMPHOCYTES # (AUTO) 1.5 10^3/uL (1.5-3.5); LYMPHOCYTES % (AUTO) 21.5 %; MEAN CORPUSCULAR HEMOGLOBIN 26.8 pg (27.0-31.0); MEAN CORPUSCULAR HGB CONC 32.1 g/dL (32.0-36.0); MEAN CORPUSCULAR VOLUME 83.6 fL (81.0-99.0); MONOCYTES # (AUTO) 0.6 10^3/uL (0.0-1.0); MONOCYTES % (AUTO) 8.5 %; NEUTROPHILS # (AUTO) 4.3 10^3/uL (1.5-6.6); NEUTROPHILS % (AUTO) 63.8 %; PLT - PLATELET COUNT 240 10^3/uL (130-450); RED BLOOD COUNT 4.88 10^6/uL (4.20-5.40); RED CELL DISTRIBUTION WIDTH 14.5 % (12.0-15.0); WHITE BLOOD COUNT 6.8 x10^3/uL (4.8-10.8)
[2021-09-20 12:09] LABS: CALCIUM 9.1 mg/dL (8.5-10.3); CREATININE 0.8 mg/dL (0.4-1.0); POTASSIUM 3.8 mmol/L (3.5-5.0)
== END 2021-09-20 11:50 | disposition home or self-care (01) ==
LOC: LAB.R 11:49
PROVIDERS: ATTEND Hospitalist
DX: I13.0 Hypertensive heart and chronic kidney disease with heart failure and stage 1 through stage 4 chronic kidney disease, or unspecified chronic kidney disease (principal); R41.82 Altered mental status, unspecified; D50.9 Iron deficiency anemia, unspecified; E78.5 Hyperlipidemia, unspecified
CPT/HCPCS: 80048; 85025

== ENCOUNTER 2021-11-28 17:25 | Outpatient (CLI) | payer MEDICARE, MEDICAID | END 2021-11-28 23:59 | disposition critical access hospital (66) | LOC: EMS 17:25 | DX: R07.89 Other chest pain (principal) | CPT/HCPCS: A0425; A0429 ==

== ENCOUNTER 2021-11-28 17:33 | Emergency (ER) | payer MEDICARE, MEDICAID ==
--- NOTE | 2021-11-28 17:59 | XRAY Report ---
PROCEDURE: Chest 1 View X-Ray INDICATIONS: Chest Pain TECHNIQUE: One view of the chest was acquired. COMPARISON: 02/13/2020 FINDINGS: Surgical changes and devices: None. Lungs and pleura: No pleural effusions or pneumothorax. Lungs are clear. Mediastinum: Mediastinal contours appear normal. Heart size is normal. Bones and chest wall: No suspicious bony lesions. Overlying soft tissues appear unremarkable. IMPRESSION: No acute cardiopulmonary pathology. Reviewed by: Kendell Mann MD on 11/28/2021 5:58 PM PDT Approved by: Kendell Mann MD on 11/28/2021 5:58 PM PDT Station ID: [id number]
--- NOTE | 2021-11-28 18:00 | ED Physician Documentation ---
PD HPI CHEST PAIN - Stated complaint Stated Complaint: CP - Chief complaint Chief Complaint: Cardiac - History obtained from History obtained from: Patient - Additional information Additional information: 76-year-old woman presents from [facility] for evaluation of chest pressure. Chest pressure started earlier today and subsequently moved up to the throat. It is mild in severity. She denies shortness of breath. She has a history of CHF but no history of known coronary disease per her but she is a slow historian. Review of Systems Ten Systems: 10 systems reviewed and negative Constitutional: reports: Reviewed and negative Throat: reports: Reviewed and negative Cardiac: reports: Reviewed and negative Respiratory: reports: Reviewed and negative PD PAST MEDICAL HISTORY - Past Medical History Cardiovascular: Hypertension, High cholesterol Respiratory: Asthma, Pneumonia Neuro: Headaches, Peripheral neuropathy Endocrine/Autoimmune: Type 2 diabetes GI: GERD, C.difficile, Chronic constipation : Chronic bladder infection, Kidney stones, Other HEENT: Other Psych: Depression, Anxiety, Schizophrenia Musculoskeletal: Osteoarthritis, Chronic back pain, Other Derm: Other - Past Surgical History Past Surgical History: Yes General: Appendectomy, Colonoscopy, EGD Ortho: Carpal Tunnel surgery, Spine surgery, Amputation, 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, Other Cardiovascular: Other - Present Medications Home Medications: Ambulatory Orders Medication Instructions Recorded Confirmed Losartan [Cozaar] 50 mg PO DAILY 02/14/17 09/08/21 tiZANidine [Zanaflex] 4 mg PO BID 02/14/17 09/08/21 Melatonin 6 mg PO QPM 10/06/17 09/08/21 Pregabalin [Lyrica] 100 mg PO TID 10/06/17 09/08/21 risperiDONE [Risperdal] 4 mg PO QPM 05/05/18 09/08/21 bisacodyL [Dulcolax] 5 mg PO DAILY PRN 07/14/18 09/08/21 Aspirin [Aspirin EC] 81 mg PO DAILY 12/03/18 09/08/21 Biofreeze Gel 4% 1 ea TOP BID PRN MDD on left stump 12/03/18 09/08/21 Duloxetine HCl [Cymbalta] 120 mg PO DAILY 12/03/18 09/08/21 Ferrous Gluconate 240 mg PO DAILY 12/03/18 09/08/21 Furosemide 20 mg PO DAILY 12/03/18 09/08/21 Nystatin 1 applic TOP BID PRN 12/03/18 09/08/21 Senna [Senokot] 8.6 mg PO BID 12/03/18 09/08/21 Calcium Carbonate [Tums (Calcium 500 mg PO BID #60 tablet 02/18/20 09/08/21 Carbonate 500mg)] HYDROcod/ACETAM 5/325 [[place] 5/325] 1 - 2 tablet PO Q6H PRN 09/08/21 09/08/21 Lactobacillus Acidophilus 1 each PO DAILY 09/08/21 09/08/21 [Acidophilus Lactobacilli] Menthol [Biofreeze] 473 ml TP PRN PRN 09/08/21 09/08/21 diphenhydrAMINE [Benadryl] 25 mg PO ONCE 09/08/21 09/08/21 predniSONE [Deltasone] 40 mg PO DAILY 5 Days #10 tablet 09/08/21 - Allergies Allergies/Adverse Reactions: Allergies Allergy/AdvReac Type Severity Reaction Status Date / Time erythromycin base Allergy Severe Anaphylaxis Verified 11/28/21 17:49 [Erythromycin Base] Penicillins Allergy Severe Anaphylaxis Verified 11/28/21 17:49 Sulfa (Sulfonamide Allergy Severe Redness/High Verified 11/28/21 17:49 Antibiotics) fever lisinopril Allergy Unknown Unknown Verified 11/28/21 17:49 ceftriaxone Allergy Rash Verified 11/28/21 17:49 quinidine Allergy Rash Verified 11/28/21 17:49 - Social History Does the pt smoke?: No Smoking Status: Never smoker Does the pt drink ETOH?: No Does the pt have substance abuse?: No - Immunizations Immunizations are current?: No Immunizations: TDAP >10years/unknown - POLST Patient has POLST: Yes POLST Status: DNR (Comfort measures only) PD ED PE NORMAL - Vitals Vital signs reviewed: Yes - General General: Other (Slow to answer questions technically alert and oriented though) - Cardiac Cardiac: RRR, No murmur - Respiratory Respiratory: No respiratory distress, Clear bilaterally - Abdomen Abdomen: Normal bowel sounds, Soft, Non tender - Neuro Neuro: Alert and oriented X 3, Normal speech Results - Vitals Vitals: Vital Signs - 24 hr 11/28/21 11/28/21 17:43 18:30 Temperature 36.6 C Heart Rate 78 77 Respiratory 16 16 Rate Blood Pressure 164/93 H 177/95 H O2 Saturation 94 94 Oxygen O2 Source Room air - EKG (time done) 1751 Rate: Rate (enter#) (77) Rhythm: NSR (With PACs), LAE Intervals: Normal NH Ischemia: Non specific changes (Early R wave progression and flat inferior and lateral T waves). No: ST elevation c/w ischemia, ST depression - Labs Labs: Laboratory Tests 11/28/21 11/28/21 11/28/21 18:03 18:03 18:03 WBC 7.8 RBC 5.28 Hgb 13.7 Hct 43.2 MCV 81.8 MCH 25.9 L MCHC 31.7 L RDW 14.6 Plt Count 210 MPV 10.9 H Neut # (Auto) 4.3 Lymph # (Auto) 2.2 [place] # (Auto) 0.7 Eos # (Auto) 0.6 Baso # (Auto) 0.0 Absolute Nucleated RBC 0.00 Nucleated RBC % 0.0 Sodium 138 Potassium 3.8 Chloride 98 L Carbon Dioxide 32 Anion Gap 8.0 BUN 28 H Creatinine 0.8 Estimated GFR (MDRD) 70 L Glucose 99 Calcium 9.5 Total Bilirubin 0.4 AST 21 ALT 14 Alkaline Phosphatase 78 Troponin I High Sens 9.5 Total Protein 7.9 Albumin 3.9 Globulin 4.0 Albumin/Globulin Ratio 1.0 Lipase 56 H PD MEDICAL DECISION MAKING - ED course ED course: 76-year-old woman who is comfort measures only presents from [facility] for the evaluation of chest pressure without pertinent positive findings. Departure - Departure Disposition: 01 Home, Self Care Clinical Impression: Chest pain Condition: Good Record reviewed to determine appropriate education?: Yes Instructions: ED Chest Pain Atypical Unkn Cause Comments: Chest x-ray, EKG, troponin are without evidence of an acute issue. Return for new or worsening symptoms. Discharge Date/Time: 11/28/21 20:23
[2021-11-28 18:09] LABS: BASOPHILS % (AUTO) 0.4 %; EOSINOPHILS # (AUTO) 0.6 10^3/uL (0.0-0.7); EOSINOPHILS % (AUTO) 7.5 %; HCT - HEMATOCRIT 43.2 % (37.0-47.0); HGB - HEMOGLOBIN 13.7 g/dL (12.0-16.0); LYMPHOCYTES # (AUTO) 2.2 10^3/uL (1.5-3.5); LYMPHOCYTES % (AUTO) 28.5 %; MEAN CORPUSCULAR HEMOGLOBIN 25.9 pg (27.0-31.0); MEAN CORPUSCULAR HGB CONC 31.7 g/dL (32.0-36.0); MEAN CORPUSCULAR VOLUME 81.8 fL (81.0-99.0); MEAN PLATELET VOLUME 10.9 fL (7.9-10.8); MONOCYTES # (AUTO) 0.7 10^3/uL (0.0-1.0); MONOCYTES % (AUTO) 8.4 %; NEUTROPHILS # (AUTO) 4.3 10^3/uL (1.5-6.6); NEUTROPHILS % (AUTO) 54.9 %; PLT - PLATELET COUNT 210 10^3/uL (130-450); RED BLOOD COUNT 5.28 10^6/uL (4.20-5.40); RED CELL DISTRIBUTION WIDTH 14.6 % (12.0-15.0); WHITE BLOOD COUNT 7.8 x10^3/uL (4.8-10.8)
[2021-11-28 18:25] LABS: ALBUMIN 3.9 g/dL (3.2-5.5); BILIRUBIN,TOTAL 0.4 mg/dL (0.2-1.0); CALCIUM 9.5 mg/dL (8.5-10.3); CREATININE 0.8 mg/dL (0.4-1.0); POTASSIUM 3.8 mmol/L (3.5-5.0); TOTAL PROTEIN 7.9 g/dL (6.7-8.2)
[2021-11-28 18:35] VITALS: BP 177/95
== END 2021-11-28 20:23 | disposition home or self-care (01) ==
LOC: EDUNIT# → ED 17:33
DX: R07.9 Chest pain, unspecified (principal)
CPT/HCPCS: 36415; 80053; 83690; 84484; 85025; 93005; 99284

== ENCOUNTER 2021-11-28 20:25 | Outpatient (CLI) | payer MEDICARE, MEDICAID | END 2021-11-28 20:26 | disposition home or self-care (01) | LOC: EMS 20:25 | PROVIDERS: ATTEND Emergency Medicine | DX: I63.9 Cerebral infarction, unspecified (principal); R41.0 Disorientation, unspecified | CPT/HCPCS: A0425; A0428 ==

== ENCOUNTER 2021-12-02 08:00 | Outpatient (CLI) | payer MEDICARE, MEDICAID ==
[2021-12-02 15:37] LABS: BILIRUBIN,URINE NEGATIVE (NEGATIVE); GLUCOSE, URINE (UA) NEGATIVE (NEGATIVE); KETONES,URINE (UA) NEGATIVE (NEGATIVE); LEUKOCYTE ESTERASE, URINE LARGE (NEGATIVE); NITRITE,URINE POSITIVE (NEGATIVE); OCCULT BLOOD,URINE SMALL (NEGATIVE); PH,URINE 6.5 PH (5.0-7.5); PROTEIN,URINE 30 mg/dL (NEGATIVE); UROBILINOGEN,URINE 0.2 (NORMAL) E.U./dL (NORMAL)
[2021-12-02 15:38] LABS: BASOPHILS % (AUTO) 0.5 %; EOSINOPHILS # (AUTO) 0.6 10^3/uL (0.0-0.7); EOSINOPHILS % (AUTO) 8.7 %; HCT - HEMATOCRIT 41.8 % (37.0-47.0); LYMPHOCYTES % (AUTO) 30.5 %; MEAN CORPUSCULAR HEMOGLOBIN 25.9 pg (27.0-31.0); MEAN CORPUSCULAR HGB CONC 31.1 g/dL (32.0-36.0); MEAN CORPUSCULAR VOLUME 83.4 fL (81.0-99.0); MEAN PLATELET VOLUME 11.8 fL (7.9-10.8); MONOCYTES # (AUTO) 0.5 10^3/uL (0.0-1.0); MONOCYTES % (AUTO) 7.8 %; NEUTROPHILS # (AUTO) 3.4 10^3/uL (1.5-6.6); NEUTROPHILS % (AUTO) 52.2 %; PLT - PLATELET COUNT 215 10^3/uL (130-450); RED BLOOD COUNT 5.01 10^6/uL (4.20-5.40); RED CELL DISTRIBUTION WIDTH 15.2 % (12.0-15.0); WHITE BLOOD COUNT 6.6 x10^3/uL (4.8-10.8)
[2021-12-02 15:42] LABS: ALBUMIN 3.6 g/dL (3.2-5.5); BILIRUBIN,TOTAL 0.5 mg/dL (0.2-1.0); CALCIUM 9.5 mg/dL (8.5-10.3); CREATININE 1.1 mg/dL (0.4-1.0); POTASSIUM 3.6 mmol/L (3.5-5.0); TOTAL PROTEIN 7.3 g/dL (6.7-8.2)
[2021-12-02 16:10] LABS: ESTIMATED AVERAGE GLUCOSE 134 mg/dL (70-100); HEMOGLOBIN A1c% 6.3 % (4.27-6.07)
[2021-12-02 16:24] LABS: CLARITY,URINE HAZY (CLEAR)
[2021-12-02 16:25] LABS: BACTERIA,URINE Many /HPF (None Seen); SQUAMOUS EPITHELIAL CELL,UR FEW Squamous (<= Few); WBC,URINE >25 /HPF (0-5)
== END 2021-12-02 23:59 | disposition home or self-care (01) ==
LOC: LAB.R 08:00
DX: I13.0 Hypertensive heart and chronic kidney disease with heart failure and stage 1 through stage 4 chronic kidney disease, or unspecified chronic kidney disease (principal); I50.9 Heart failure, unspecified; E11.42 Type 2 diabetes mellitus with diabetic polyneuropathy; R41.82 Altered mental status, unspecified; N39.0 Urinary tract infection, site not specified; E66.9 Obesity, unspecified
CPT/HCPCS: 80053; 81001; 81003; 83036; 84443; 85025; 87077; 87086; 87181

== ENCOUNTER 2021-12-07 17:19 | Outpatient (CLI) | payer MEDICARE, MEDICAID | END 2021-12-07 17:20 | disposition critical access hospital (66) | LOC: EMS 17:19 | DX: Z74.01 Bed confinement status (principal) | CPT/HCPCS: A0425; A0427 ==

== ENCOUNTER 2021-12-07 17:25 | Emergency (ER) | payer MEDICARE, MEDICAID ==
--- NOTE | 2021-12-07 17:36 | ED Physician Documentation ---
PD HPI SKIN - Stated complaint Stated Complaint: ALLERGIC REACTION - History obtained from History obtained from: Patient - History of Present Illness Timing - onset: How many minutes ago (30), Today Timing - details: Abrupt onset (The patient had onset of swelling of the periorbital and lips as well as some redness of the skin. She was able to talk and breathe well. She was receiving an IV antibiotic dose at the time. Given Benadryl by EMS on route with improving symptoms.) Location: Face (lips and periorbital areas in particular.), Bodywide Review of Systems Constitutional: denies: Fever, Chills Nose: denies: Rhinorrhea / runny nose, Congestion Throat: denies: Sore throat Cardiac: denies: Chest pain / pressure, Palpitations, Pedal edema, Calf pain Respiratory: reports: Dyspnea. denies: Cough GI: denies: Nausea, Vomiting, Diarrhea Skin: reports: Rash (redness with itching bodywide but more to face and neck, chest.) PD PAST MEDICAL HISTORY - Past Medical History Cardiovascular: Hypertension, High cholesterol Respiratory: Asthma, Pneumonia Neuro: Headaches, Peripheral neuropathy Endocrine/Autoimmune: Type 2 diabetes GI: GERD, C.difficile, Chronic constipation : Chronic bladder infection, Kidney stones, Other HEENT: Other Psych: Depression, Anxiety, Schizophrenia Musculoskeletal: Osteoarthritis, Chronic back pain, Other Derm: Other - Past Surgical History Past Surgical History: Yes General: Appendectomy, Colonoscopy, EGD Ortho: Carpal Tunnel surgery, Spine surgery, Amputation, 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, Other Cardiovascular: Other - Present Medications Home Medications: Ambulatory Orders Medication Instructions Recorded Confirmed Losartan [Cozaar] 50 mg PO DAILY 02/14/17 09/08/21 tiZANidine [Zanaflex] 4 mg PO TID 02/14/17 12/07/21 Melatonin 6 mg PO QPM 10/06/17 12/07/21 Pregabalin [Lyrica] 300 mg PO BID 10/06/17 12/07/21 risperiDONE [Risperdal] 2 mg PO BID 05/05/18 12/07/21 bisacodyL [Dulcolax] 5 mg PO DAILY PRN 07/14/18 12/07/21 Aspirin [Aspirin EC] 81 mg PO DAILY 12/03/18 12/07/21 Biofreeze Gel 4% 1 ea TOP BID PRN MDD on left stump 12/03/18 09/08/21 Duloxetine HCl [Cymbalta] 30 mg PO DAILY 12/03/18 12/07/21 Ferrous Gluconate 240 mg PO DAILY 12/03/18 09/08/21 Furosemide 20 mg PO DAILY 12/03/18 12/07/21 Nystatin 1 applic TOP BID PRN 12/03/18 09/08/21 Senna [Senokot] 8.6 mg PO BID 12/03/18 12/07/21 HYDROcod/ACETAM 5/325 [[place] 5/325] 1 - 2 tablet PO Q6H PRN 09/08/21 12/07/21 Lactobacillus Acidophilus 1 each PO DAILY 09/08/21 09/08/21 [Acidophilus Lactobacilli] Menthol [Biofreeze] 473 ml TP PRN PRN 09/08/21 09/08/21 diphenhydrAMINE [Benadryl] 25 mg PO ONCE 09/08/21 09/08/21 predniSONE [Deltasone] 40 mg PO DAILY 5 Days #10 tablet 09/08/21 Calcium Carbonate [Tums (Calcium 500 mg PO Q4HR PRN 12/07/21 12/07/21 Carbonate 500mg)] Cetirizine [ZyrTEC] 10 mg PO BID #12 tablet 12/07/21 Lidocaine Patch 5% [Lidoderm Patch] 1 each TOP DAILY 12/07/21 12/07/21 amLODIPine [Norvasc] 5 mg PO DAILY 12/07/21 12/07/21 dexAMETHasone [Decadron] 4 mg PO DAILY #5 tablet 12/07/21 hydrOXYzine HCL [Hydroxyzine HCl] 25 mg PO HS 12/07/21 12/07/21 - Allergies Allergies/Adverse Reactions: Allergies Allergy/AdvReac Type Severity Reaction Status Date / Time erythromycin base Allergy Severe Anaphylaxis Verified 12/07/21 17:37 [Erythromycin Base] Penicillins Allergy Severe Anaphylaxis Verified 12/07/21 17:37 Sulfa (Sulfonamide Allergy Severe Redness/High Verified 12/07/21 17:37 Antibiotics) fever lisinopril Allergy Unknown Unknown Verified 12/07/21 17:37 ceftriaxone Allergy Rash Verified 12/07/21 17:37 quinidine Allergy Rash Verified 12/07/21 17:37 - Social History Does the pt smoke?: No Smoking Status: Never smoker Does the pt drink ETOH?: No Does the pt have substance abuse?: No - Immunizations Immunizations are current?: No Immunizations: TDAP >10years/unknown - POLST Patient has POLST: Yes POLST Status: DNR (Comfort measures only) PD ED PE NORMAL - Vitals Vital signs reviewed: Yes - General General: Alert and oriented X 3, No acute distress, Well developed/nourished - HEENT HEENT: Moist mucous membranes, Pharynx benign (no swelling of tongue, pallate, uvula. ) - Neck Neck: Supple, no meningeal sign, No adenopathy, Other (anterior neck without edema nor soft tissue fullness. ) - Cardiac Cardiac: RRR, No murmur - Respiratory Respiratory: Clear bilaterally - Derm Derm: Normal color, Warm and dry, Other (some redness mildly on face. Upper lip with hint of edema externally. periorbital eyelids minimal edema. ) - Extremities Extremities: No edema, No calf tenderness / cord - Neuro Neuro: Alert and oriented X 3, No motor deficit, No sensory deficit, Normal speech Results - Vitals Vitals: Vital Signs - 24 hr 12/07/21 12/07/21 12/07/21 17:32 17:52 18:20 Temperature 37.2 C Heart Rate 84 83 82 Respiratory 17 16 19 Rate Blood Pressure 197/108 H 193/110 H O2 Saturation 96 94 94 12/07/21 12/07/21 18:29 19:59 Temperature 36.6 C Heart Rate 85 93 Respiratory 16 15 Rate Blood Pressure 165/100 H O2 Saturation 92 Oxygen O2 Source Room air - Labs Labs: Laboratory Tests 12/07/21 18:07 Sodium 135 Potassium 3.5 Chloride 98 L Carbon Dioxide 29 Anion Gap 8.0 BUN 32 H Creatinine 0.9 Estimated GFR (MDRD) 61 L Glucose 98 Calcium 9.0 Total Bilirubin 0.4 AST 20 ALT 13 Alkaline Phosphatase 80 Total Protein 7.3 Albumin 3.6 Globulin 3.7 Albumin/Globulin Ratio 1.0 Lipase 52 H PD MEDICAL DECISION MAKING - ED course Complexity details: re-evaluated patient (no recurrent symptoms while here. Seems past peak of reaction. Did not get epi. ), considered differential (reported edema and rash during IV administration of abx ertapenem for UTI. Improving symptoms enroute with time and Benadryl. ), d/w patient Departure - Departure Disposition: 01 Home, Self Care Clinical Impression: Allergic reaction to drug Qualifiers: Encounter type: initial encounter Qualified Code(s): T78.40XA - Allergy, unspe cified, initial encounter Condition: Stable Record reviewed to determine appropriate education?: Yes Prescriptions: dexAMETHasone [Decadron] 4 mg PO DAILY #5 tablet Cetirizine [ZyrTEC] 10 mg PO BID #12 tablet Comments: You seem to have had an allergic reaction to the ertapenem antibiotic you are getting. Hold/stop any further doses of that medication. Follow-up with your prescribing physician/facility medical claims specialist regarding any other antibiotics to take its place. You have multiple allergies and it may be difficult to using an alternative. For now you do want to be without any new antibiotics for a day or 2 anyway to ensure that he reaction to the current medication has resolved. Use cetirizine antihistamine twice daily for the next 6 days. Decadron steroid daily for 5 more days. Add Benadryl every 4-6 hours if needed tonight and tomorrow for any itching or rash. I would not anticipate further though. Discharge Date/Time: 12/07/21 19:58
[2021-12-07] MEDS ORDERED: ALBUTEROL NEB 2.5 MG/3 ML INH STA (17:49)
[2021-12-07] MEDS ORDERED: CETIRIZINE 10 MG TABLET PO STA (17:49)
[2021-12-07] MEDS ORDERED: diphenhydrAMINE INJ 50 MG/ML VIAL IVP STA (17:49)
[2021-12-07] MEDS ORDERED: DEXAMETHASONE 10 MG/ML VIAL IVP STA (17:53)
[2021-12-07 18:24] LABS: ALBUMIN 3.6 g/dL (3.2-5.5); BILIRUBIN,TOTAL 0.4 mg/dL (0.2-1.0); CREATININE 0.9 mg/dL (0.4-1.0); POTASSIUM 3.5 mmol/L (3.5-5.0); TOTAL PROTEIN 7.3 g/dL (6.7-8.2)
[2021-12-07 20:00] VITALS: BP 165/100
== END 2021-12-07 19:58 | disposition home or self-care (01) ==
LOC: EDUNIT# → ED 17:25
DX: R22.0 Localized swelling, mass and lump, head (principal); L53.9 Erythematous condition, unspecified; R21 Rash and other nonspecific skin eruption; T36.8X5A Adverse effect of other systemic antibiotics, initial encounter; Y92.129 Unspecified place in nursing home as the place of occurrence of the external cause; Z74.01 Bed confinement status
CPT/HCPCS: 36415; 80053; 83690; 94640; 96374; 96375; 99283; 99284; A9270; J1200

== ENCOUNTER 2021-12-07 20:05 | Outpatient (CLI) | payer MEDICARE, MEDICAID | END 2021-12-07 20:06 | disposition home or self-care (01) | LOC: EMS 20:05 | PROVIDERS: ATTEND Registered Nurse | DX: Z74.01 Bed confinement status (principal) | CPT/HCPCS: A0425; A0428 ==

== ENCOUNTER 2021-12-08 08:00 | Outpatient (CLI) | payer MEDICARE, MEDICAID ==
[2021-12-08 22:43] LABS: BILIRUBIN,URINE NEGATIVE (NEGATIVE); GLUCOSE, URINE (UA) NEGATIVE (NEGATIVE); KETONES,URINE (UA) NEGATIVE (NEGATIVE); LEUKOCYTE ESTERASE, URINE SMALL (NEGATIVE); NITRITE,URINE NEGATIVE (NEGATIVE); OCCULT BLOOD,URINE TRACE-INTA (NEGATIVE); PROTEIN,URINE NEGATIVE (NEGATIVE); UROBILINOGEN,URINE 0.2 (NORMAL) E.U./dL (NORMAL)
[2021-12-08 22:44] LABS: CLARITY,URINE HAZY (CLEAR)
[2021-12-08 22:53] LABS: BACTERIA,URINE Few /HPF (None Seen); RBC,URINE 0-5 /HPF (0-5); SQUAMOUS EPITHELIAL CELL,UR RARE Squamous (<= Few)
== END 2021-12-08 23:59 | disposition home or self-care (01) ==
LOC: LAB.R 08:00
PROVIDERS: ATTEND Hospitalist
DX: N39.0 Urinary tract infection, site not specified (principal)
CPT/HCPCS: 81001; 87086

== ENCOUNTER 2021-12-09 08:00 | Outpatient (CLI) | payer MEDICARE, MEDICAID ==
[2021-12-09 18:54] LABS: BILIRUBIN,URINE NEGATIVE (NEGATIVE); GLUCOSE, URINE (UA) NEGATIVE (NEGATIVE); KETONES,URINE (UA) NEGATIVE (NEGATIVE); LEUKOCYTE ESTERASE, URINE SMALL (NEGATIVE); NITRITE,URINE NEGATIVE (NEGATIVE); OCCULT BLOOD,URINE SMALL (NEGATIVE); PH,URINE 5.5 PH (5.0-7.5); PROTEIN,URINE NEGATIVE (NEGATIVE); UROBILINOGEN,URINE 0.2 (NORMAL) E.U./dL (NORMAL)
[2021-12-09 18:55] LABS: CLARITY,URINE HAZY (CLEAR)
[2021-12-09 19:07] LABS: BACTERIA,URINE Rare /HPF (None Seen); RBC,URINE 0-5 /HPF (0-5); SQUAMOUS EPITHELIAL CELL,UR FEW Squamous (<= Few)
== END 2021-12-09 23:59 | disposition home or self-care (01) ==
LOC: LAB.R 08:00
PROVIDERS: ATTEND Hospitalist
DX: N39.0 Urinary tract infection, site not specified (principal)
CPT/HCPCS: 81001; 81003; 87086

== ENCOUNTER 2022-02-13 08:00 | Outpatient (CLI) | payer MEDICARE, MEDICAID | END 2022-02-13 23:59 | disposition home or self-care (01) | LOC: LAB.R 08:00 | PROVIDERS: ATTEND Internal Medicine | DX: R33.9 Retention of urine, unspecified (principal); R31.9 Hematuria, unspecified | CPT/HCPCS: 87070; 87077; 87181; 87205 ==

== ENCOUNTER 2022-03-03 10:30 | Outpatient (CLI) | payer MEDICARE, MEDICAID | END 2022-03-03 10:31 | disposition short-term general hospital (02) | LOC: EMS 10:30 | DX: R07.9 Chest pain, unspecified (principal); M25.511 Pain in right shoulder | CPT/HCPCS: A0425; A0427; A0888 ==

== ENCOUNTER 2022-05-07 13:07 | Outpatient (CLI) | payer MEDICARE, MEDICAID ==
--- NOTE | 2022-05-07 14:30 | XRAY Report ---
PROCEDURE: Shoulder 3 View LT INDICATIONS: L SHOULDER PAIN TECHNIQUE: 4 views of the shoulder were acquired. COMPARISON: None. FINDINGS: Bones: No fractures or dislocations. No suspicious bony lesions. Visualized ribs appear intact. M oderate glenohumeral and acromioclavicular joint space narrowing and small marginal inferior osteophy te present. Soft tissues: No suspicious soft tissue calcifications. IMPRESSION: Moderate glenohumeral osteoarthritis without fracture or foreign body Reviewed by: Jeferson Hartley MD on 05/07/2022 1:28 PM [place] Approved by: Jeferson Hartley MD on 05/07/2022 1:28 PM [place] Station ID: [id number]
== END 2022-05-07 13:08 | disposition home or self-care (01) ==
LOC: DI 13:07
PROVIDERS: ATTEND Internal Medicine
DX: M19.012 Primary osteoarthritis, left shoulder (principal)

== ENCOUNTER 2022-06-04 14:24 | Outpatient (CLI) | payer MEDICARE, MEDICAID ==
[2022-06-04 15:00] LABS: BILIRUBIN,URINE NEGATIVE (NEGATIVE); GLUCOSE, URINE (UA) NEGATIVE (NEGATIVE); KETONES,URINE (UA) NEGATIVE (NEGATIVE); LEUKOCYTE ESTERASE, URINE LARGE (NEGATIVE); NITRITE,URINE POSITIVE (NEGATIVE); OCCULT BLOOD,URINE LARGE (NEGATIVE); PH,URINE 7.5 PH (5.0-7.5); PROTEIN,URINE 100 mg/dL (NEGATIVE); UROBILINOGEN,URINE 1 (NORMAL) E.U./dL (NORMAL)
[2022-06-04 15:18] LABS: CLARITY,URINE CLOUDY (CLEAR)
[2022-06-04 15:30] LABS: BACTERIA,URINE Many /HPF (None Seen); EPITHELIAL CELLS,UR MOD Transitional /HPF (<= Few); RBC,URINE TNTC /HPF (0-5); SQUAMOUS EPITHELIAL CELL,UR RARE Squamous (<= Few)
== END 2022-06-04 14:25 | disposition home or self-care (01) ==
LOC: LAB.R 14:24
DX: R41.2 Retrograde amnesia (principal); R82.91 Other chromoabnormalities of urine
CPT/HCPCS: 81001; 81003; 87077; 87086; 87181

== ENCOUNTER 2022-06-09 19:08 | Outpatient (CLI) | payer MEDICARE, MEDICAID ==
[2022-06-09 19:27] LABS: BASOPHILS # (AUTO) 0.1 10^3/uL (0.0-0.1); BASOPHILS % (AUTO) 0.8 %; EOSINOPHILS # (AUTO) 0.6 10^3/uL (0.0-0.7); EOSINOPHILS % (AUTO) 9.5 %; HCT - HEMATOCRIT 37.8 % (37.0-47.0); HGB - HEMOGLOBIN 11.6 g/dL (12.0-16.0); LYMPHOCYTES # (AUTO) 1.7 10^3/uL (1.5-3.5); LYMPHOCYTES % (AUTO) 24.9 %; MEAN CORPUSCULAR HEMOGLOBIN 24.9 pg (27.0-31.0); MEAN CORPUSCULAR HGB CONC 30.7 g/dL (32.0-36.0); MEAN CORPUSCULAR VOLUME 81.3 fL (81.0-99.0); MONOCYTES # (AUTO) 0.5 10^3/uL (0.0-1.0); MONOCYTES % (AUTO) 7.7 %; NEUTROPHILS # (AUTO) 3.8 10^3/uL (1.5-6.6); NEUTROPHILS % (AUTO) 56.9 %; PLT - PLATELET COUNT 138 10^3/uL (130-450); RED BLOOD COUNT 4.65 10^6/uL (4.20-5.40); WHITE BLOOD COUNT 6.6 x10^3/uL (4.8-10.8)
[2022-06-09 19:34] LABS: CALCIUM 8.9 mg/dL (8.5-10.3); CREATININE 1.1 mg/dL (0.4-1.0); POTASSIUM 4.5 mmol/L (3.5-5.0)
[2022-06-10 11:31] LABS: ESTIMATED AVERAGE GLUCOSE 128 mg/dL (70-100); HEMOGLOBIN A1c% 6.1 % (4.27-6.07)
== END 2022-06-09 23:59 | disposition home or self-care (01) ==
LOC: LAB.R 19:08
DX: I13.0 Hypertensive heart and chronic kidney disease with heart failure and stage 1 through stage 4 chronic kidney disease, or unspecified chronic kidney disease (principal); D50.9 Iron deficiency anemia, unspecified; E11.42 Type 2 diabetes mellitus with diabetic polyneuropathy; E11.29 Type 2 diabetes mellitus with other diabetic kidney complication
CPT/HCPCS: 80048; 83036; 85025

== ENCOUNTER 2022-08-27 08:00 | Outpatient (CLI) | payer MEDICARE, MEDICAID ==
[2022-08-27 17:29] LABS: BASOPHILS # (AUTO) 0.1 10^3/uL (0.0-0.1); BASOPHILS % (AUTO) 0.5 %; EOSINOPHILS # (AUTO) 0.4 10^3/uL (0.0-0.7); EOSINOPHILS % (AUTO) 4.7 %; HCT - HEMATOCRIT 38.6 % (37.0-47.0); HGB - HEMOGLOBIN 11.7 g/dL (12.0-16.0); LYMPHOCYTES # (AUTO) 1.3 10^3/uL (1.5-3.5); LYMPHOCYTES % (AUTO) 13.9 %; MEAN CORPUSCULAR HEMOGLOBIN 25.1 pg (27.0-31.0); MEAN CORPUSCULAR HGB CONC 30.3 g/dL (32.0-36.0); MEAN CORPUSCULAR VOLUME 82.7 fL (81.0-99.0); MEAN PLATELET VOLUME 11.6 fL (7.9-10.8); MONOCYTES # (AUTO) 0.7 10^3/uL (0.0-1.0); MONOCYTES % (AUTO) 7.4 %; NEUTROPHILS # (AUTO) 6.9 10^3/uL (1.5-6.6); NEUTROPHILS % (AUTO) 73.2 %; PLT - PLATELET COUNT 235 10^3/uL (130-450); RED BLOOD COUNT 4.67 10^6/uL (4.20-5.40); RED CELL DISTRIBUTION WIDTH 16.3 % (12.0-15.0); WHITE BLOOD COUNT 9.4 x10^3/uL (4.8-10.8)
[2022-08-27 17:36] LABS: ALBUMIN/GLOBULIN RATIO 0.8 (1.0-2.2); BILIRUBIN,TOTAL 0.3 mg/dL (0.2-1.0); CALCIUM 8.5 mg/dL (8.5-10.3); POTASSIUM 4.1 mmol/L (3.5-5.0)
== END 2022-08-27 23:59 | disposition home or self-care (01) ==
LOC: LAB.R 08:00
PROVIDERS: ATTEND Family Medicine
DX: I13.0 Hypertensive heart and chronic kidney disease with heart failure and stage 1 through stage 4 chronic kidney disease, or unspecified chronic kidney disease (principal); R30.0 Dysuria
CPT/HCPCS: 80053; 85025

== ENCOUNTER 2022-08-28 07:21 | Outpatient (CLI) | payer MEDICARE, MEDICAID ==
[2022-08-28 07:30] LABS: BILIRUBIN,URINE NEGATIVE (NEGATIVE); GLUCOSE, URINE (UA) NEGATIVE (NEGATIVE); KETONES,URINE (UA) NEGATIVE (NEGATIVE); LEUKOCYTE ESTERASE, URINE LARGE (NEGATIVE); NITRITE,URINE POSITIVE (NEGATIVE); OCCULT BLOOD,URINE LARGE (NEGATIVE); PROTEIN,URINE 100 mg/dL (NEGATIVE); UROBILINOGEN,URINE 0.2 (NORMAL) E.U./dL (NORMAL)
[2022-08-28 07:46] LABS: CLARITY,URINE SL. CLOUDY (CLEAR)
[2022-08-28 07:47] LABS: BACTERIA,URINE Few /HPF (None Seen); RBC,URINE TNTC /HPF (0-5); SQUAMOUS EPITHELIAL CELL,UR MOD Squamous (<= Few)
== END 2022-08-28 07:22 | disposition home or self-care (01) ==
LOC: LAB.R 07:21
PROVIDERS: ATTEND Registered Nurse
DX: N39.0 Urinary tract infection, site not specified (principal)
CPT/HCPCS: 81001; 87086

== ENCOUNTER 2022-09-16 08:00 | Outpatient (CLI) | payer MEDICARE, MEDICAID ==
[2022-09-16 17:17] LABS: BILIRUBIN,URINE NEGATIVE (NEGATIVE); GLUCOSE, URINE (UA) NEGATIVE (NEGATIVE); KETONES,URINE (UA) NEGATIVE (NEGATIVE); LEUKOCYTE ESTERASE, URINE LARGE (NEGATIVE); NITRITE,URINE POSITIVE (NEGATIVE); OCCULT BLOOD,URINE LARGE (NEGATIVE); PROTEIN,URINE TRACE mg/dL (NEGATIVE); UROBILINOGEN,URINE 0.2 (NORMAL) E.U./dL (NORMAL)
[2022-09-16 17:25] LABS: BACTERIA,URINE Many /HPF (None Seen); CLARITY,URINE CLOUDY (CLEAR); RBC,URINE TNTC /HPF (0-5); SQUAMOUS EPITHELIAL CELL,UR RARE Squamous (<= Few); WBC CLUMPS,URINE PRESENT; WBC,URINE >25 /HPF (0-5)
== END 2022-09-16 23:59 | disposition home or self-care (01) ==
LOC: LAB.R 08:00
DX: N39.0 Urinary tract infection, site not specified (principal)
CPT/HCPCS: 81001; 81003; 87077; 87086; 87181

== ENCOUNTER 2022-11-04 18:04 | Outpatient (CLI) | payer MEDICARE, MEDICAID | END 2022-11-04 23:59 | disposition critical access hospital (66) | LOC: EMS 18:04 | DX: S80.01XA Contusion of right knee, initial encounter (principal); W06.XXXA Fall from bed, initial encounter; Y92.122 Bedroom in nursing home as the place of occurrence of the external cause | CPT/HCPCS: A0425; A0429 ==

== ENCOUNTER 2022-11-04 18:13 | Emergency (ER) | payer MEDICARE, MEDICAID ==
[2022-11-04 20:25] VITALS: BP 165/89
--- NOTE | 2022-11-04 20:30 | XRAY Report ---
PROCEDURE: Knee 3 View RT INDICATIONS: fall TECHNIQUE: 3 views of the right knee(s) were acquired. COMPARISON: None. FINDINGS: Bones: No fractures or dislocations. No suspicious bony lesions. Severe tricompartmental arthriti c change. Periarticular osteophytes are present. Subchondral periarticular lucencies are present. Pro minent lateral patellar subluxation. Soft tissues: No knee joint effusion. No suspicious soft tissue calcifications or masses. IMPRESSION: Severe arthritic change. No visualized acute fracture or dislocation. However, occult injury cannot b e excluded. Recommend short interval imaging follow-up in 7-10 days as clinically indicated for addit ional evaluation. Reviewed by: Radha Carrillo MD on 11/04/2022 8:29 PM PDT Approved by: Radha Carrillo MD on 11/04/2022 8:29 PM PDT Station ID: [id number]
--- NOTE | 2022-11-04 20:30 | XRAY Report ---
PROCEDURE: Hip w/Pelvis 2-3V RT INDICATIONS: fall TECHNIQUE: AP pelvis with lateral view(s) of the right hip(s). COMPARISON: None. FINDINGS: Bones: No fractures or dislocations. No suspicious bony lesions. Soft tissues: No suspicious soft tissue calcifications or masses. IMPRESSION: Images are suboptimal secondary to patient body habitus and positioning. No visualized acute fracture or dislocation. However, occult injury cannot be excluded. Recommend short interval imaging follow-u p in 7-10 days as clinically indicated for additional evaluation. Reviewed by: Radha Carrillo MD on 11/04/2022 8:28 PM PDT Approved by: Radha Carrillo MD on 11/04/2022 8:28 PM PDT Station ID: [id number]
--- NOTE | 2022-11-04 20:31 | XRAY Report ---
PROCEDURE: Tib/Fib RT INDICATIONS: fall TECHNIQUE: 2 views of the tibia and fibula were acquired. COMPARISON: None. FINDINGS: Bones: No fractures or dislocations. No suspicious bony lesions. Arthritic changes are partially visualized within the knee and ankle. Soft tissues: No suspicious soft tissue calcifications or masses. IMPRESSION: No visualized acute fracture or dislocation. However, occult injury cannot be excluded. Recommend keli rt interval imaging follow-up in 7-10 days as clinically indicated for additional evaluation. Reviewed by: Radha Carrillo MD on 11/04/2022 8:29 PM PDT Approved by: Radha Carrillo MD on 11/04/2022 8:29 PM PDT Station ID: [id number]
--- NOTE | 2022-11-04 21:10 | ED Physician Documentation ---
PD HPI LOWER EXT INJURY - Stated complaint Stated Complaint: RT KNEE PX - Chief complaint Chief Complaint: Ext Problem - History obtained from History obtained from: Patient, EMS - Additional information Additional information: Patient is a 77-year-old female presenting from [facility] with right knee pain. Patient states that she was in her bed and excellently rolled out hitting her right knee. She denies hitting her head or having LOC. She does not take a blood thinner. 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 She denies recently feeling ill. She denies pain elsewhere. Review of Systems Constitutional: denies: Fever Cardiac: denies: Chest pain / pressure Respiratory: denies: Dyspnea GI: denies: Abdominal Pain Musculoskeletal: reports: Extremity pain. denies: Back pain Neurologic: denies: Head injury PD PAST MEDICAL HISTORY - Past Medical History Cardiovascular: Hypertension, High cholesterol Respiratory: Asthma, Pneumonia Neuro: Headaches, Peripheral neuropathy Endocrine/Autoimmune: Type 2 diabetes GI: GERD, C.difficile, Chronic constipation : Chronic bladder infection, Kidney stones, Other HEENT: Other Psych: Depression, Anxiety, Schizophrenia Musculoskeletal: Osteoarthritis, Chronic back pain, Other Derm: Other - Past Surgical History Past Surgical History: Yes General: Appendectomy, Colonoscopy, EGD Ortho: Carpal Tunnel surgery, Spine surgery, Amputation, 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, Other Cardiovascular: Other - Present Medications Home Medications: Ambulatory Orders Medication Instructions Recorded Confirmed Losartan [Cozaar] 50 mg PO DAILY 02/14/17 09/08/21 tiZANidine [Zanaflex] 4 mg PO TID 02/14/17 11/04/22 Melatonin 6 mg PO QPM 10/06/17 12/07/21 Pregabalin [Lyrica] 300 mg PO BID 10/06/17 11/04/22 risperiDONE [Risperdal] 2 mg PO BID 05/05/18 11/04/22 bisacodyL [Dulcolax] 5 mg PO DAILY PRN 07/14/18 12/07/21 Aspirin [Aspirin EC] 81 mg PO DAILY 12/03/18 12/07/21 Biofreeze Gel 4% 1 ea TOP BID PRN MDD on left stump 12/03/18 09/08/21 Duloxetine HCl [Cymbalta] 30 mg PO DAILY 12/03/18 11/04/22 Ferrous Gluconate 240 mg PO DAILY 12/03/18 09/08/21 Furosemide 20 mg PO DAILY 12/03/18 11/04/22 Nystatin 1 applic TOP BID PRN 12/03/18 09/08/21 Senna [Senokot] 8.6 mg PO BID 12/03/18 12/07/21 HYDROcod/ACETAM 5/325 [[place] 5/325] 1 - 2 tablet PO Q6H PRN 09/08/21 12/07/21 Lactobacillus Acidophilus 1 each PO DAILY 09/08/21 09/08/21 [Acidophilus Lactobacilli] Menthol [Biofreeze] 473 ml TP PRN PRN 09/08/21 09/08/21 diphenhydrAMINE [Benadryl] 25 mg PO ONCE 09/08/21 09/08/21 predniSONE [Deltasone] 40 mg PO DAILY 5 Days #10 tablet 09/08/21 Calcium Carbonate [Tums (Calcium 500 mg PO Q4HR PRN 12/07/21 12/07/21 Carbonate 500mg)] Cetirizine [ZyrTEC] 10 mg PO BID #12 tablet 12/07/21 Lidocaine Patch 5% [Lidoderm Patch] 1 each TOP DAILY 12/07/21 11/04/22 amLODIPine [Norvasc] 5 mg PO DAILY 12/07/21 11/04/22 dexAMETHasone [Decadron] 4 mg PO DAILY #5 tablet 12/07/21 hydrOXYzine HCL [Hydroxyzine HCl] 25 mg PO HS 12/07/21 11/04/22 Pregabalin [Lyrica] 300 mg PO DAILY 11/04/22 - Allergies Allergies/Adverse Reactions: Allergies Allergy/AdvReac Type Severity Reaction Status Date / Time erythromycin base Allergy Severe Anaphylaxis Verified 12/07/21 17:37 [Erythromycin Base] Penicillins Allergy Severe Anaphylaxis Verified 12/07/21 17:37 Sulfa (Sulfonamide Allergy Severe Redness/High Verified 12/07/21 17:37 Antibiotics) fever lisinopril Allergy Unknown Unknown Verified 12/07/21 17:37 ceftriaxone Allergy Rash Verified 12/07/21 17:37 quinidine Allergy Rash Verified 12/07/21 17:37 - Social History Does the pt smoke?: No Smoking Status: Never smoker Does the pt drink ETOH?: No Does the pt have substance abuse?: No - Immunizations Immunizations are current?: No Immunizations: TDAP >10years/unknown - POLST Patient has POLST: Yes POLST Status: DNR (Comfort measures only) PD ED PE NORMAL - General General: Alert and oriented X 3, No acute distress, Well developed/nourished - HEENT HEENT: Atraumatic - Neck Neck: Supple, no meningeal sign, No bony TTP, C-Spine cleared by NEXUS criteria - Cardiac Cardiac: RRR, No murmur - Respiratory Respiratory: No respiratory distress, Clear bilaterally - Abdomen Abdomen: Soft, Non tender - Derm Derm: Warm and dry - Extremities Extremities: No deformity, Other (Left AKA; Contusion to right knee; Able to flex and extend at right knee, distal pulses in right lower extremity intact, no tendernes to upper extremities with normal ROM at all joints) - Neuro Neuro: Alert and oriented X 3, edge plugger 2-12 intact, No motor deficit, No sensory deficit, Normal speech Eye Opening: Spontaneous Motor: Obeys Commands Verbal: Oriented GCS Score: 15 Results - Vitals Vitals: Vital Signs - 24 hr 11/04/22 11/04/22 18:15 20:21 Temperature 36.4 C L Heart Rate 90 83 Respiratory 16 16 Rate Blood Pressure 161/79 H 165/89 H O2 Saturation 92 95 Oxygen O2 Source Room air PD Medical Decision Making - ED course Complexity details: reviewed results, re-evaluated patient, d/w patient ED course: Pt with R leg pain after fall from bed. No head injury, not on thinners. Pt is non ambulatory at baseline - has L AKA. R leg has contusion. XR obtained including R hip, R knee, and R tib/fib which I reviewed and see no fracture or dislocation. pt allows for ROM at all joints of R leg and is resting comfortably. Discussed continued supportive care, close follow up, and return precautions. Departure - Departure Disposition: 01 Home, Self Care Clinical Impression: Right leg pain Condition: Stable Instructions: ED Contusion Lower Ext Comments: Your x-rays do not show any broken bones in the right leg. You do have a bruise just below the knee. Please continue with ice, anti-inflammatories Such as Tylenol For pain. If you develop any worsening symptoms please return to the emergency department. Discharge Date/Time: 11/04/22 22:45
== END 2022-11-04 22:45 | disposition home or self-care (01) ==
LOC: EDUNIT# → ED 18:13
DX: S80.11XA Contusion of right lower leg, initial encounter (principal); W06.XXXA Fall from bed, initial encounter; Z66 Do not resuscitate; I10 Essential (primary) hypertension; E78.00 Pure hypercholesterolemia, unspecified; E11.42 Type 2 diabetes mellitus with diabetic polyneuropathy; Z79.899 Other long term (current) drug therapy; Z79.82 Long term (current) use of aspirin
CPT/HCPCS: 99283; 99284

== ENCOUNTER 2022-11-04 22:30 | Outpatient (CLI) | payer MEDICARE, MEDICAID | END 2022-11-05 23:59 | disposition home or self-care (01) | LOC: EMS 22:30 | PROVIDERS: ATTEND Emergency Medicine | DX: S80.01XA Contusion of right knee, initial encounter (principal); X58.XXXA Exposure to other specified factors, initial encounter; Z89.512 Acquired absence of left leg below knee; Z74.01 Bed confinement status | CPT/HCPCS: A0425; A0428 ==

== ENCOUNTER 2022-12-09 12:21 | Outpatient (CLI) | payer MEDICARE, MEDICAID ==
[2022-12-09 12:55] LABS: ESTIMATED AVERAGE GLUCOSE 123 mg/dL (70-100); HEMOGLOBIN A1c% 5.9 % (4.27-6.07)
== END 2022-12-09 12:22 | disposition home or self-care (01) ==
LOC: LAB.R 12:21
PROVIDERS: ATTEND Registered Nurse
DX: E11.42 Type 2 diabetes mellitus with diabetic polyneuropathy (principal)
CPT/HCPCS: 83036

== ENCOUNTER 2023-03-14 08:00 | Outpatient (CLI) | payer MEDICARE, MEDICAID ==
[2023-03-14 11:04] LABS: BASOPHILS % (AUTO) 0.6 %; EOSINOPHILS # (AUTO) 0.6 10^3/uL (0.0-0.7); EOSINOPHILS % (AUTO) 9.1 %; HCT - HEMATOCRIT 40.5 % (37.0-47.0); HGB - HEMOGLOBIN 12.3 g/dL (12.0-16.0); LYMPHOCYTES # (AUTO) 2.2 10^3/uL (1.5-3.5); LYMPHOCYTES % (AUTO) 32.3 %; MEAN CORPUSCULAR HEMOGLOBIN 25.2 pg (27.0-31.0); MEAN CORPUSCULAR HGB CONC 30.4 g/dL (32.0-36.0); MEAN PLATELET VOLUME 12.2 fL (7.9-10.8); MONOCYTES # (AUTO) 0.5 10^3/uL (0.0-1.0); MONOCYTES % (AUTO) 6.9 %; NEUTROPHILS # (AUTO) 3.5 10^3/uL (1.5-6.6); PLT - PLATELET COUNT 153 10^3/uL (130-450); RED BLOOD COUNT 4.88 10^6/uL (4.20-5.40); WHITE BLOOD COUNT 6.8 x10^3/uL (4.8-10.8)
[2023-03-14 11:18] LABS: CALCIUM 9.4 mg/dL (8.5-10.3); CREATININE 0.9 mg/dL (0.6-1.3)
== END 2023-03-14 23:59 | disposition home or self-care (01) ==
LOC: LAB.R 08:00
PROVIDERS: ATTEND Registered Nurse
DX: E11.42 Type 2 diabetes mellitus with diabetic polyneuropathy (principal); N39.0 Urinary tract infection, site not specified; K21.9 Gastro-esophageal reflux disease without esophagitis
CPT/HCPCS: 80048; 83540; 85025

== ENCOUNTER 2023-04-30 17:28 | Outpatient (CLI) | payer MEDICARE, MEDICAID | END 2023-04-30 17:29 | disposition critical access hospital (66) | LOC: EMS 17:28 | DX: R41.82 Altered mental status, unspecified (principal) | CPT/HCPCS: A0425; A0427 ==

== ENCOUNTER 2023-04-30 17:37 | Inpatient (IN) | payer MEDICARE, MEDICAID ==
[2023-04-30] MEDS ORDERED: SODIUM CHLORIDE 0.9% 1,000 ML IV STA ×2 (18:07→19:33)
--- NOTE | 2023-04-30 18:48 | XRAY Report ---
PROCEDURE: Chest 1 View X-Ray INDICATIONS: hypoxia TECHNIQUE: One view of the chest was acquired. COMPARISON: Chest radiograph 11/28/2021. FINDINGS: Surgical changes and devices: None. Lungs and pleura: No pleural effusions or pneumothorax. Low lung volumes. Basilar streaky opacities. Mediastinum: Mediastinal contours appear normal. Heart size is normal. Bones and chest wall: No suspicious bony lesions. Overlying soft tissues appear unremarkable. IMPRESSION: Low lung volumes with bibasilar streaky opacities favored to represent atelectasis versus aspiration. Reviewed by: Elvia Shaver MD on 04/30/2023 6:47 PM PST Approved by: Elvia Shaver MD on 04/30/2023 6:47 PM PST Station ID: [id number]
[2023-04-30 19:02] LABS: BASOPHILS # (AUTO) 0.1 10^3/uL (0.0-0.1); BASOPHILS % (AUTO) 0.4 %; EOSINOPHILS % (AUTO) 0.2 %; HCT - HEMATOCRIT 34.6 % (37.0-47.0); HGB - HEMOGLOBIN 10.9 g/dL (12.0-16.0); LYMPHOCYTES # (AUTO) 0.3 10^3/uL (1.5-3.5); LYMPHOCYTES % (AUTO) 2.5 %; MEAN CORPUSCULAR HEMOGLOBIN 25.1 pg (27.0-31.0); MEAN CORPUSCULAR HGB CONC 31.5 g/dL (32.0-36.0); MEAN CORPUSCULAR VOLUME 79.7 fL (81.0-99.0); MEAN PLATELET VOLUME 11.1 fL (7.9-10.8); MONOCYTES # (AUTO) 0.3 10^3/uL (0.0-1.0); NEUTROPHILS # (AUTO) 12.3 10^3/uL (1.5-6.6); NEUTROPHILS % (AUTO) 94.4 %; PLT - PLATELET COUNT 215 10^3/uL (130-450); RED BLOOD COUNT 4.34 10^6/uL (4.20-5.40); RED CELL DISTRIBUTION WIDTH 15.5 % (12.0-15.0)
[2023-04-30 19:16] LABS: ALBUMIN 2.9 g/dL (3.2-5.5); ALBUMIN/GLOBULIN RATIO 0.8 (1.0-2.2); BILIRUBIN,TOTAL 0.4 mg/dL (0.2-1.0); CALCIUM 8.8 mg/dL (8.5-10.3); CREATININE 1.6 mg/dL (0.6-1.3); POTASSIUM 3.7 mmol/L (3.5-4.5); TOTAL PROTEIN 6.5 g/dL (6.4-8.9)
[2023-04-30 19:45] LABS: BILIRUBIN,URINE NEGATIVE (NEGATIVE); GLUCOSE, URINE (UA) NEGATIVE (NEGATIVE); KETONES,URINE (UA) NEGATIVE (NEGATIVE); LEUKOCYTE ESTERASE, URINE MODERATE (NEGATIVE); NITRITE,URINE NEGATIVE (NEGATIVE); OCCULT BLOOD,URINE NEGATIVE (NEGATIVE); PH,URINE >=9.0 PH (5.0-7.5); PROTEIN,URINE 100 mg/dL (NEGATIVE); UROBILINOGEN,URINE 0.2 (NORMAL) E.U./dL (NORMAL)
[2023-04-30 19:49] LABS: CLARITY,URINE CLOUDY (CLEAR)
[2023-04-30 19:57] LABS: BACTERIA,URINE Moderate /HPF (None Seen); RBC,URINE 0-5 /HPF (0-5); SQUAMOUS EPITHELIAL CELL,UR FEW Squamous (<= Few)
[2023-04-30 19:58] LABS: AMORPHOUS SEDIMENT,UR Few /LPF
--- NOTE | 2023-04-30 20:02 | ED Physician Documentation ---
History of Present Illness - Stated complaint Stated Complaint: UNRESPONSIVE - Chief complaint Chief Complaint: Neuro - History obtained from History obtained from: EMS - History of Present Illness Pain level max: 0 Pain level now: 0 - Additonal information Additional information: Patient is a 78-year-old female brought in from [facility] for unresponsiveness today. Found to be hypotensive with EMS. No other history is available. She has a chronic indwelling suprapubic catheter. Has a BKA. Has a POLST form that states DNR/comfort focused care. Review of Systems Unable to obtain: AMS PD PAST MEDICAL HISTORY - Past Medical History Past Medical History: Yes Cardiovascular: Hypertension, High cholesterol Respiratory: Asthma, Pneumonia Neuro: Headaches, Peripheral neuropathy Endocrine/Autoimmune: Type 2 diabetes GI: GERD, C.difficile, Chronic constipation : Chronic bladder infection, Kidney stones, Other HEENT: Other Psych: Depression, Anxiety, Schizophrenia Musculoskeletal: Osteoarthritis, Chronic back pain, Other Derm: Other - Past Surgical History Past Surgical History: Yes General: Appendectomy, Colonoscopy, EGD Ortho: Carpal Tunnel surgery, Spine surgery, Amputation, 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, Other Cardiovascular: Other - Present Medications Home Medications: Ambulatory Orders Medication Instructions Recorded Confirmed Losartan [Cozaar] 50 mg PO DAILY 02/14/17 09/08/21 tiZANidine [Zanaflex] 4 mg PO TID 02/14/17 11/04/22 Melatonin 6 mg PO QPM 10/06/17 12/07/21 Pregabalin [Lyrica] 300 mg PO BID 10/06/17 11/04/22 risperiDONE [Risperdal] 2 mg PO BID 05/05/18 11/04/22 bisacodyL [Dulcolax] 5 mg PO DAILY PRN 07/14/18 12/07/21 Aspirin [Aspirin EC] 81 mg PO DAILY 12/03/18 12/07/21 Biofreeze Gel 4% 1 ea TOP BID PRN MDD on left stump 12/03/18 09/08/21 Duloxetine HCl [Cymbalta] 30 mg PO DAILY 12/03/18 11/04/22 Ferrous Gluconate 240 mg PO DAILY 12/03/18 09/08/21 Furosemide 20 mg PO DAILY 12/03/18 11/04/22 Nystatin 1 applic TOP BID PRN 12/03/18 09/08/21 Senna [Senokot] 8.6 mg PO BID 12/03/18 12/07/21 HYDROcod/ACETAM 5/325 [[place] 5/325] 1 - 2 tablet PO Q6H PRN 09/08/21 12/07/21 Lactobacillus Acidophilus 1 each PO DAILY 09/08/21 09/08/21 [Acidophilus Lactobacilli] Menthol [Biofreeze] 473 ml TP PRN PRN 09/08/21 09/08/21 diphenhydrAMINE [Benadryl] 25 mg PO ONCE 09/08/21 09/08/21 predniSONE [Deltasone] 40 mg PO DAILY 5 Days #10 tablet 09/08/21 Calcium Carbonate [Tums (Calcium 500 mg PO Q4HR PRN 12/07/21 12/07/21 Carbonate 500mg)] Cetirizine [ZyrTEC] 10 mg PO BID #12 tablet 12/07/21 Lidocaine Patch 5% [Lidoderm Patch] 1 each TOP DAILY 12/07/21 11/04/22 amLODIPine [Norvasc] 5 mg PO DAILY 12/07/21 11/04/22 dexAMETHasone [Decadron] 4 mg PO DAILY #5 tablet 12/07/21 hydrOXYzine HCL [Hydroxyzine HCl] 25 mg PO HS 12/07/21 11/04/22 Pregabalin [Lyrica] 300 mg PO DAILY 11/04/22 - Allergies Allergies/Adverse Reactions: Allergies Allergy/AdvReac Type Severity Reaction Status Date / Time erythromycin base Allergy Severe Anaphylaxis Verified 04/30/23 17:58 [Erythromycin Base] Penicillins Allergy Severe Anaphylaxis Verified 04/30/23 17:58 Sulfa (Sulfonamide Allergy Severe Redness/High Verified 04/30/23 17:58 Antibiotics) fever lisinopril Allergy Unknown Unknown Verified 04/30/23 17:58 ceftriaxone Allergy Rash Verified 04/30/23 17:58 quinidine Allergy Rash Verified 04/30/23 17:58 - Social History Does the pt smoke?: No Smoking Status: Never smoker Does the pt drink ETOH?: No Does the pt have substance abuse?: No - Immunizations Immunizations are current?: No Immunizations: TDAP >10years/unknown - POLST Patient has POLST: Yes POLST Status: DNR (Comfort measures only) PD ED PE NORMAL - Vitals Vital signs reviewed: Yes - General General: Other (Drowsy, opens eyes to verbal and pain) - HEENT HEENT: Atraumatic, PERRL, Other (Dry lips and tongue) - Neck Neck: Supple, no meningeal sign - Cardiac Cardiac: RRR - Respiratory Respiratory: Other (Mild crackles bilaterally) - Abdomen Abdomen: Soft, Non tender, Non distended - Derm Derm: Warm and dry - Neuro Eye Opening: To Voice Motor: Localizes to Pain Verbal: Inappropriate GCS Score: 11 Results - Vitals Vitals: Vital Signs - 24 hr 04/30/23 04/30/23 04/30/23 17:40 17:44 17:50 Temperature 37.4 C 37.4 C Heart Rate 80 82 80 Respiratory 12 17 18 Rate Blood Pressure 114/64 114/64 113/64 O2 Saturation 88 L 92 89 L If not protocol 2 2 : Oxygen Flow, liters/minute 04/30/23 04/30/23 04/30/23 17:55 18:00 18:20 Temperature Heart Rate 79 Respiratory 18 Rate Blood Pressure 108/59 L O2 Saturation 85 L 98 96 If not protocol 2 15 2 : Oxygen Flow, liters/minute 04/30/23 04/30/23 04/30/23 18:30 19:00 20:27 Temperature Heart Rate 81 78 71 Respiratory 19 20 19 Rate Blood Pressure 94/64 67/54 L 119/66 O2 Saturation 94 91 L 94 If not protocol 2 2 2 : Oxygen Flow, liters/minute 04/30/23 04/30/23 04/30/23 21:00 22:17 22:30 Temperature Heart Rate 77 74 71 Respiratory 16 15 14 Rate Blood Pressure 126/77 116/70 117/52 L O2 Saturation 97 95 93 If not protocol 2 2 2 : Oxygen Flow, liters/minute Oxygen O2 Source Nasal cannula Oxygen Flow Rate 2 - Labs Labs: Laboratory Tests 04/30/23 04/30/23 04/30/23 18:14 18:52 18:52 WBC 13.0 H RBC 4.34 Hgb 10.9 L Hct 34.6 L MCV 79.7 L MCH 25.1 L MCHC 31.5 L RDW 15.5 H Plt Count 215 MPV 11.1 H Neut # (Auto) 12.3 H Lymph # (Auto) 0.3 L Milam # (Auto) 0.3 Eos # (Auto) 0.0 Baso # (Auto) 0.1 Absolute Nucleated RBC 0.00 Nucleated RBC % 0.0 Sodium 137 Potassium 3.7 Chloride 104 Carbon Dioxide 26 Anion Gap 7.0 BUN 42 H Creatinine 1.6 H Estimated GFR (MDRD) 31 L Glucose 131 H Lactic Acid Calcium 8.8 Total Bilirubin 0.4 AST 29 ALT 14 Alkaline Phosphatase 62 Total Protein 6.5 Albumin 2.9 L Globulin 3.6 Albumin/Globulin Ratio 0.8 L Lipase 18 Urine Color Urine Clarity Urine pH Ur Specific [place] Urine Protein Urine Glucose (UA) Urine Ketones Urine Occult Blood Urine Nitrite Urine Bilirubin Urine Urobilinogen Ur Leukocyte Esterase Urine RBC Urine WBC Ur Squamous Epith Cells Amorphous Sediment Urine Bacteria Ur Microscopic Review Urine Culture Comments Nasal Adenovirus (PCR) NOT DETECTED Nasal B. parapertussis DNA (PCR) NOT DETECTED Nasal Coronavir 229E PCR NOT DETECTED Nasal Coronavir HKU1 PCR NOT DETECTED Nasal Coronavir NL63 PCR NOT DETECTED Nasal Coronavir OC43 PCR NOT DETECTED Nasal Enterovir/Rhinovir PCR NOT DETECTED Nasal Influenza B PCR NOT DETECTED Nasal Influenza A PCR NOT DETECTED Nasal Parainfluen 1 PCR NOT DETECTED Nasal Parainfluen 2 PCR NOT DETECTED Nasal Parainfluen 3 PCR NOT DETECTED Nasal Parainfluen 4 PCR NOT DETECTED Nasal RSV (PCR) NOT DETECTED Nasal B.pertussis DNA PCR NOT DETECTED Nasal C.pneumoniae (PCR) NOT DETECTED Nathan Human Metapneumo PCR NOT DETECTED Nasal M.pneumoniae (PCR) NOT DETECTED Nasal SARS-CoV-2 (PCR) NOT DETECTED 04/30/23 04/30/23 19:34 19:50 WBC RBC Hgb Hct MCV MCH MCHC RDW Plt Count MPV Neut # (Auto) Lymph # (Auto) Milam # (Auto) Eos # (Auto) Baso # (Auto) Absolute Nucleated RBC Nucleated RBC % Sodium Potassium Chloride Carbon Dioxide Anion Gap BUN Creatinine Estimated GFR (MDRD) Glucose Lactic Acid 4.2 H* Calcium Total Bilirubin AST ALT Alkaline Phosphatase Total Protein Albumin Globulin Albumin/Globulin Ratio Lipase Urine Color YELLOW Urine Clarity CLOUDY Urine pH >=9.0 H Ur Specific [place] <=1.005 Urine Protein 100 H Urine Glucose (UA) NEGATIVE Urine Ketones NEGATIVE Urine Occult Blood NEGATIVE Urine Nitrite NEGATIVE Urine Bilirubin NEGATIVE Urine Urobilinogen 0.2 (NORMAL) Ur Leukocyte Esterase MODERATE H Urine RBC 0-5 Urine WBC 11-25 H Ur Squamous Epith Cells FEW Squamous Amorphous Sediment Few Urine Bacteria Moderate H Ur Microscopic Review INDICATED Urine Culture Comments INDICATED Nasal Adenovirus (PCR) Nasal B. parapertussis DNA (PCR) Nasal Coronavir 229E PCR Nasal Coronavir HKU1 PCR Nasal Coronavir NL63 PCR Nasal Coronavir OC43 PCR Nasal Enterovir/Rhinovir PCR Nasal Influenza B PCR Nasal Influenza A PCR Nasal Parainfluen 1 PCR Nasal Parainfluen 2 PCR Nasal Parainfluen 3 PCR Nasal Parainfluen 4 PCR Nasal RSV (PCR) Nasal B.pertussis DNA PCR Nasal C.pneumoniae (PCR) Nathan Human Metapneumo PCR Nasal M.pneumoniae (PCR) Nasal SARS-CoV-2 (PCR) - Rads (name of study) Head CT Relevant Findings:: Final report received, See rad report Chest x-ray Relevant Findings:: Final report received, See rad report Chest CT Relevant Findings:: Final report received, See rad report Abdomen pelvis CT Relevant Findings:: Final report received, See rad report PD Medical Decision Making - ED course Complexity details: reviewed results, re-evaluated patient, considered differential, d/w 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 Appears to be septic. Lactic acid 4.2. White blood cell count 13.0. I called and left a message for the patient's daughter/POA shortly after arrival in the ER (approx [phone]). No callback received. Her last admission note states that the family are okay with IV antibiotics and IV fluids. Patient does have ureteral stones on CT scan but does not have any desire to have any procedures or surgery done based on upon prior discussions with family. Therefore urology is not consulted at this time. We will proceed with her prior wishes of IV fluids and IV antibiotics, no pressors, no central lines. Will consult hospitalist for admission. Hospitalist consulted and will admit the patient. This document was made in part using voice recognition software. While efforts are made to proofread this document, sound alike and grammatical errors may occur. - Sepsis Event Sepsis Onset Date: 04/30/23 Sepsis Onset Time: 23:37 Current Stage of Sepsis: Sepsis Initial Hypotension: SBP drop more than 40 mmHg from baseline Possible source of Sepsis: Genitourinary Mental/Cognitive Status: Lethargic, Change from baseline Reason for not giving 30ml/kg crystalloid fluids: Other (DNR/comfort focused care) Peripheral Pulse Strength: 1+ Faint Peripheral Pulse Location: Radial Bedside ultrasound performed: No Departure - Departure Disposition: 66 [facility] DC/Xfer Clinical Impression: Complicated UTI (urinary tract infection), Hypoxia Sepsis Qualifiers: Sepsis type: sepsis due to unspecified organism Sepsis acute organ dysfunction status: without acute organ dysfunction Qualified Code(s): A41.9 - Sepsis, unspecified organism Condition: Poor Forms: PCP List
[2023-04-30 20:14] LABS: B. PARAPERTUSSIS- RESP PCR PAN NOT DETECTED; B. PERTUSSIS- RESP PCR PANEL NOT DETECTED; C. PNEUMONIAE- RESP PCR PANEL NOT DETECTED; CORONAVIRUS 229E-RESP PCR NOT DETECTED; CORONAVIRUS HKU1-RESP PCR NOT DETECTED; CORONAVIRUS NL63-RESP PCR NOT DETECTED; CORONAVIRUS OC43-RESP PCR NOT DETECTED; HUMAN METAPNEUMOVIRUS NOT DETECTED; INFLUENZA A- RESP PCR PANEL NOT DETECTED; INFLUENZA B - RESP PCR PANEL NOT DETECTED; M. PNEUMONIAE- RESP PCR PANEL NOT DETECTED; PARAINFLUENZA VIRUS 1 NOT DETECTED; PARAINFLUENZA VIRUS 2 NOT DETECTED; PARAINFLUENZA VIRUS 3 NOT DETECTED; PARAINFLUENZA VIRUS 4 NOT DETECTED; RHINOVIRUS/ENTEROVIRUS NOT DETECTED; RSV- RESP PCR PANEL NOT DETECTED; SARS-CoV-2 -RESP PCR PANEL NOT DETECTED
--- NOTE | 2023-04-30 22:37 | CT Report ---
PROCEDURE: HEAD WO INDICATIONS: altered, sepsis TECHNIQUE: Noncontrast 4.5 mm thick angled axial sections acquired from the foramen magnum to the vertex. For r adiation dose reduction, the following was used: automated exposure control, adjustment of mA and/or kV according to patient size. COMPARISON: CT head 07/02/2013. FINDINGS: Image quality: Excellent. The ventricular system and cortical sulci demonstrate atrophy, consistent for patient's stated age. There are areas of hypodensity in the periventricular and subcortical white matter. There is no acut e intra or extra-axial fluid collection. No acute hemorrhage, mass lesion or midline shift. Brainst em is unremarkable. Globes are symmetrical. Sinuses demonstrate mucosal thickening within the ethmoid air cells as well a s sphenoid sinuses. Osseous structures are intact. IMPRESSION: 1. No acute intracranial process. 2. Mild to moderate atrophy and chronic microvascular ischemic changes. Reviewed by: Radha Carrillo MD on 04/30/2023 10:36 PM PST Approved by: Radha Carrillo MD on 04/30/2023 10:36 PM PST Station ID: [id number]
--- NOTE | 2023-04-30 22:51 | CT Report ---
PROCEDURE: ABDOMEN/PELVIS WO INDICATIONS: altered, sepsis TECHNIQUE: A CT scan of the abdomen and pelvis was performed without the use of intravenous contrast. Images we re recorded and evaluated at appropriate window settings. Reformats: coronal and sagittal. For radiat ion dose reduction, the following was used: automated exposure control, adjustment of mA and/or kV ac cording to patient size. COMPARISON: CT abdomen 08/12/2017, CT abdomen pelvis 09/08/2013 FINDINGS: Image quality: Excellent. Lung bases and heart: No effusion and superimposed dependent changes bilaterally. Liver: No solid mass. Gallbladder and biliary tree: Gallbladder is prominently distended without stones or wall thickening. Spleen: No splenomegaly. Pancreas: No pancreatic ductal dilation. Adrenals: No adrenal nodule. Kidneys and ureters: No renal cystic lesion which requires follow up. No solid mass. Marked asymmetri c left renal atrophy. 2 calcifications, nonobstructing are present the largest measuring 4 mm. Left k idney demonstrates a prominent central calcification measuring 2.3 cm, Hounsfield units 943. 2 additi onal inferior calcifications are present measuring 8 mm and and 7 mm, Hounsfield units 380 and 406 re spectively. There is proximal hydroureter with small areas of dependent calcification approximately m easuring 3 to 4 mm. There is a distal right ureteral calcification measuring 6 mm, Hounsfield units 3 95. The right kidney demonstrates prominent extrarenal pelvis with likely degree of renal collecting system prominence obscured by artifact and large central calcification. Bowel and peritoneum: No bowel distension. No pathologic free fluid. Lymph nodes: No central or retroperitoneal adenopathy. Vessels: No infrarenal aortic aneurysm. Femorofemoral bypass is present. PELVIS Reproductive organs: Unremarkable. Bladder: Bladder is collapsed with a Reyes catheter. Pelvic lymph nodes: No pelvic adenopathy by size criteria. Bones: No aggressive osseous abnormality. Other: No significant ventral or inguinal hernia. IMPRESSION: Bilateral renal calculi the largest on the right. Right hydroureter with dependent stones identified proximally as well as a distal calcification. Ther e is prominence of the renal pelvis and suspected hydronephrosis although poorly delineated secondary to artifact as well as obscuration by large central stone. Distended gallbladder possibly hydrops in appearance. Reviewed by: Radha Carrillo MD on 04/30/2023 10:50 PM PST Approved by: Radha Carrillo MD on 04/30/2023 10:50 PM [facility] Station ID: [id number]
--- NOTE | 2023-04-30 23:08 | CT Report ---
PROCEDURE: CHEST WO INDICATIONS: altered, sepsis TECHNIQUE: Noncontrast 1mm axial images were acquired from the pulmonary apices to the posterior costophrenic an gles. Axial 5 mm soft tissue kernel reconstructions were performed as well as 8 mm axial MIP and cor onal and sagittal 5 mm reformations. For radiation dose reduction, the following was used: automate d exposure control, adjustment of mA and/or kV according to patient size. COMPARISON: Chest x-ray 04/30/2023, CT abdomen pelvis 04/30/2023 FINDINGS: Image quality: Excellent. Lungs and pleura: Minimal effusions with dependent changes. Mediastinum: Heart size is enlarged. No pericardial effusion. No large vessel abnormality. No mediast inal adenopathy by size criteria. Chest wall and lower neck: Thyroid is unremarkable. No axillary or supraclavicular adenopathy by size . Bones: No aggressive osseous abnormality. Upper Abdomen: Unremarkable. IMPRESSION: Dependent changes with minimal effusions bilaterally. This likely represents atelectasis. Developing pneumonia cannot be definitively excluded. Reviewed by: Radha Carrillo MD on 04/30/2023 11:06 PM PST Approved by: Radha Carrillo MD on 04/30/2023 11:06 PM PST Station ID: [id number]
[2023-04-30] MEDS ORDERED: levoFLOXacin 750 MG/150 ML 750 MG/150 ML BAG IV STA (23:45)
[2023-04-30] MEDS ORDERED: CIPROFLOXACIN 400 MG/200 ML 400 MG/200 ML BAG IV STA (23:48)
[2023-05-01] MEDS ORDERED: SODIUM CHLORIDE 0.9% 1,000 ML IV STA ×2 (00:01)
--- NOTE | 2023-05-01 00:23 | HISTORY & PHYSICAL EXAMINATION ---
Chief Complaint - Chief Complaint Chief Complaint: unresponsive History of Present Illness - Admitted From Admitted From:: SNF - History Obtained From History obtained from: ER physician Dr Morrow Exam Limitations: Telemedicine - History of Present Illness HPI Comment/Other: Ms Mederos is a 78 yo F with hx L BKA, chronic indwelling suprapubic catheter, HTN, DM II. Resides at [facility]. Per ER provider patient has POLST form that indicates DNR/comfort focused care only. Presents to ER found unresponsive, O2 sats in the 70s improved, now on 2 L NC. Hypotension BP 60s/40s. Unable to obtain further history. ER provider has been attempting to contact family/POA for several hours, no answer, he has left voicemail with patient's daughter and awaiting call back. In the meantime per POLST form will provide comfort/supportive care with IV fluids and IV abx OK. Patient comfort care last admission 02/2020, also noted comfort measures on ER visit 11/2021 for chest pain. History - Past Medical History Cardiovascular: reports: Hypertension, High cholesterol Respiratory: reports: Asthma, Pneumonia Neuro: reports: Headaches, Peripheral neuropathy Endocrine/Autoimmune: reports: Type 2 diabetes GI: reports: GERD, C.difficile, Chronic constipation : reports: Chronic bladder infection, Kidney stones, Other HEENT: reports: Other Psych: reports: Depression, Anxiety, Schizophrenia Musculoskeletal: reports: Osteoarthritis, Chronic back pain, Other Derm: reports: Other MRSA Hx?: Yes - Past Surgical History General: reports: Appendectomy, Colonoscopy, EGD Ortho: reports: Carpal Tunnel surgery, Spine surgery, Amputation, 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 She has 4 daughters. She has been living on [facility] since 2012. Before that was in her own home in [place]. She had failed living on her own and needed daytime care and someone to go to appts and groceries. But one too many admits for sepsis w UTI resulted in inability to return to home. So moved here to be closer to one of her daughters. Lived with daughter for 3 months but then agreed to permanent SNF placement. Did well and adjusted to living there. Was social and went to facility activities, but 2 years ago, she started to get broken down by infection and multiple admits. More and more withdrawn. She states that she does not smoke tobacco, drink alcohol or use any illicit drugs. - Substance History Use: Uses substance without health or social issues: NONE - POLST Patient has POLST: Yes POLST Status: DNR (Comfort measures only) Meds/Allgy - Home Medications Home Medications: Ambulatory Orders Medication Instructions Recorded Confirmed Losartan [Cozaar] 50 mg PO DAILY 02/14/17 09/08/21 tiZANidine [Zanaflex] 4 mg PO TID 02/14/17 11/04/22 Melatonin 6 mg PO QPM 10/06/17 12/07/21 Pregabalin [Lyrica] 300 mg PO BID 10/06/17 11/04/22 risperiDONE [Risperdal] 2 mg PO BID 05/05/18 11/04/22 bisacodyL [Dulcolax] 5 mg PO DAILY PRN 07/14/18 12/07/21 Aspirin [Aspirin EC] 81 mg PO DAILY 12/03/18 12/07/21 Biofreeze Gel 4% 1 ea TOP BID PRN MDD on left stump 12/03/18 09/08/21 Duloxetine HCl [Cymbalta] 30 mg PO DAILY 12/03/18 11/04/22 Ferrous Gluconate 240 mg PO DAILY 12/03/18 09/08/21 Furosemide 20 mg PO DAILY 12/03/18 11/04/22 Nystatin 1 applic TOP BID PRN 12/03/18 09/08/21 Senna [Senokot] 8.6 mg PO BID 12/03/18 12/07/21 HYDROcod/ACETAM 5/325 [Jerome 5/325] 1 - 2 tablet PO Q6H PRN 09/08/21 12/07/21 Lactobacillus Acidophilus 1 each PO DAILY 09/08/21 09/08/21 [Acidophilus Lactobacilli] Menthol [Biofreeze] 473 ml TP PRN PRN 09/08/21 09/08/21 diphenhydrAMINE [Benadryl] 25 mg PO ONCE 09/08/21 09/08/21 predniSONE [Deltasone] 40 mg PO DAILY 5 Days #10 tablet 09/08/21 Calcium Carbonate [Tums (Calcium 500 mg PO Q4HR PRN 12/07/21 12/07/21 Carbonate 500mg)] Cetirizine [ZyrTEC] 10 mg PO BID #12 tablet 12/07/21 Lidocaine Patch 5% [Lidoderm Patch] 1 each TOP DAILY 12/07/21 11/04/22 amLODIPine [Norvasc] 5 mg PO DAILY 12/07/21 11/04/22 dexAMETHasone [Decadron] 4 mg PO DAILY #5 tablet 12/07/21 hydrOXYzine HCL [Hydroxyzine HCl] 25 mg PO HS 12/07/21 11/04/22 Pregabalin [Lyrica] 300 mg PO DAILY 11/04/22 - Allergies Allergies/Adverse Reactions: Allergies Allergy/AdvReac Type Severity Reaction Status Date / Time erythromycin base Allergy Severe Anaphylaxis Verified 04/30/23 17:58 [Erythromycin Base] Penicillins Allergy Severe Anaphylaxis Verified 04/30/23 17:58 Sulfa (Sulfonamide Allergy Severe Redness/High Verified 04/30/23 17:58 Antibiotics) fever lisinopril Allergy Unknown Unknown Verified 04/30/23 17:58 ceftriaxone Allergy Rash Verified 04/30/23 17:58 quinidine Allergy Rash Verified 04/30/23 17:58 Review of Systems - All Other Systems All Other Systems: reports: Other (unable to obtain, patient lethargic/n onverbal) Exam - Vital Signs Reviewed Vital Signs: Yes Vital Signs: Vital Signs x48h Temp Pulse Resp BP Pulse Ox O2 Flow Rate 04/30/23 22:30 71 14 117/52 L 93 2 04/30/23 22:17 74 15 116/70 95 2 04/30/23 21:00 77 16 126/77 97 2 04/30/23 20:27 71 19 119/66 94 2 04/30/23 19:00 78 20 67/54 L 91 L 2 04/30/23 18:30 81 19 94/64 94 2 04/30/23 18:20 79 18 108/59 L 96 2 04/30/23 18:00 98 15 04/30/23 17:55 85 L 2 04/30/23 17:50 80 18 113/64 89 L 2 04/30/23 17:44 37.4 C 82 17 114/64 92 04/30/23 17:40 37.4 C 80 12 114/64 88 L 2 - Physical Exam General Appearance: positive: Lethargic (opens eyes briefly in response to nurse, does not answer questions) Respiratory: positive: No respiratory distress Abdomen: positive: Non-tender (per bedside exam by RN), No distention Skin: positive: No rash, Pallor Extremities: positive: Other (L BKA) Neurologic/Psychiatric: positive: Other (lethargic, opens eyes briefly, follows simple commands (squeezes hand, wiggles toes, bilateral) per RN exam) Sepsis Event Note (H) - Evaluation Current Stage of Sepsis: Sepsis (patient comfort measures) Possible source of Sepsis: positive: Genitourinary - Sepsis Criteria Sepsis Criteria: Suspected or Documented, WBC count greater than 12,000 or less than 4000, SBP drop more than 40mHg Conclusion/Plan - Lab Results Lab results reviewed: Yes Fish Bones: 04/30/23 18:52 04/30/23 18:52 - Other Other Results/Comments: Sepsis secondary to UTI in setting of chronic indwelling suprapubic catheter Hx renal stones, no surgical intervention per prior discussions with urology -Patient has received IV fluids and IV antibiotics (multiple allergies noted) in ER -Limited plan of care due to comfort measures -Noted lactic acidosis -Continue supportive care with IV fluids and IV abx for now Acute metabolic encephalopathy -Likely related to acute infection -Currently follows simple commands in all extremities per RN bedside exam, nonverbal -Continue to monitor closely - baseline activity/communication level is unknown at this time Unable to confirm home med at this time *Goals of care: DNR/comfort measures per POLST form, prior admission patient was receiving IV fluids and antibiotics therefore was continued today in ER. ER physician has attempted to contact POA, awaiting call back. Continue with current plan of care at this time. Telemedicine Consult Details - Provider Location & Consult Time Telemedicine consultation conducted via videoconferencing?: Yes List names and roles of persons who participated in consult:: Calderon Akins MD, Antonino RN Telemedicine provider location:: [place], [place]
[2023-05-01] MEDS ORDERED: SODIUM CHLORIDE FLUSH 0.9% 10 ML SYRINGE IVP PRN (00:36)
[2023-05-01] MEDS ORDERED: SODIUM CHLORIDE 0.9% 1,000 ML IV SCH (01:00)
[2023-05-01] MEDS: SODIUM CHLORIDE FLUSH 0.9% 10 ML SYRINGE IVP SCH ×3 (02:25→15:41)
[2023-05-01] MEDS: SODIUM CHLORIDE 0.9% 1,000 ML IV SCH ×3 (09:09→22:37)
[2023-05-01] MEDS: ACETAMINOPHEN 1,000 MG/100 ML 1,000 MG/100 ML BAG IV PRN (11:35)
[2023-05-01] MEDS ORDERED: levoFLOXacin 750 MG/150 ML 750 MG/150 ML BAG IV SCH (13:00)
[2023-05-01] MEDS ORDERED: SODIUM CHLORIDE 0.9% 1,000 ML IV ONE (15:33)
[2023-05-01 16:31] LABS: BASOPHILS # (AUTO) 0.1 10^3/uL (0.0-0.1); BASOPHILS % (AUTO) 0.4 %; EOSINOPHILS # (AUTO) 0.5 10^3/uL (0.0-0.7); HCT - HEMATOCRIT 30.4 % (37.0-47.0); HGB - HEMOGLOBIN 9.5 g/dL (12.0-16.0); LYMPHOCYTES # (AUTO) 0.3 10^3/uL (1.5-3.5); LYMPHOCYTES % (AUTO) 2.6 %; MEAN CORPUSCULAR HEMOGLOBIN 24.7 pg (27.0-31.0); MEAN CORPUSCULAR HGB CONC 31.3 g/dL (32.0-36.0); MEAN CORPUSCULAR VOLUME 79.2 fL (81.0-99.0); MEAN PLATELET VOLUME 10.9 fL (7.9-10.8); MONOCYTES # (AUTO) 0.5 10^3/uL (0.0-1.0); MONOCYTES % (AUTO) 3.6 %; NEUTROPHILS # (AUTO) 11.5 10^3/uL (1.5-6.6); NEUTROPHILS % (AUTO) 88.2 %; PLT - PLATELET COUNT 150 10^3/uL (130-450); RED BLOOD COUNT 3.84 10^6/uL (4.20-5.40); RED CELL DISTRIBUTION WIDTH 15.8 % (12.0-15.0)
[2023-05-01 16:47] LABS: CALCIUM 7.7 mg/dL (8.5-10.3); CREATININE 1.5 mg/dL (0.6-1.3); POTASSIUM 3.4 mmol/L (3.5-4.5)
--- NOTE | 2023-05-01 17:17 | PROVIDER PROGRESS NOTE ---
Assessment/Plan - Problem List (1) UTI (urinary tract infection) due to urinary indwelling catheter Assessment/Plan: --Sepsis secondary to suprapubic Reyes catheter infection. Reyes catheter was last exchanged on 04/21. Unclear if exchange occurred in the ED. --Continue IV levofloxacin. (2) Sepsis Qualifiers: Sepsis type: sepsis due to unspecified organism Sepsis acute organ dysfunction status: without acute organ dysfunction Qualified Code(s): A41.9 - Sepsis, unspecified organism Assessment/Plan: --Continue antibiotics as above. (3) Above knee amputation of left lower extremity Assessment/Plan: --Resides at [facility]. (4) Gram-negative bacteremia Assessment/Plan: -- Blood culture showing gram-negative bacteremia. Repeat blood cultures ordered. Etiology is believed to be her UTI. (5) Acute kidney injury Assessment/Plan: --Baseline creatinine is under 1. Continue IV hydration. (6) T2DM (type 2 diabetes mellitus) Assessment/Plan: --Obtain A1c. --Patient is not eating. Will start her on SSI. (7) Schizophrenia Qualifiers: Schizophrenia type: unspecified Qualified Code(s): F20.9 - Schizophrenia, unspecified Assessment/Plan: --Med rec is currently pending. --She is acutely encephalopathic so it is unclear what her baseline mental status is. - Current Meds Current Meds: Current Medications Generic Name Dose Route Start Last Admin Trade Name Freq PRN Reason Stop Dose Admin Sodium Chloride 1,000 mls @ 100 mls/hr 05/01/23 09:00 05/01/23 12:46 Normal Saline 0.9% IV 100 mls/hr .Q10H JEAN Administration Acetaminophen 1,000 mg in 100 mls @ 400 mls/hr 05/01/23 10:56 05/01/23 12:37 Acetaminophen IV Infused Q6HR PRN Infusion Moderate Pain (Level 4-6) Levofloxacin 750 mg in 150 mls @ 100 mls/hr 05/01/23 13:00 05/01/23 13:08 Levaquin 750 Mg/150 Ml IV 100 mls/hr Q48H JEAN Administration Sodium Chloride 10 ml 05/01/23 01:00 05/01/23 15:41 Sodium Chloride Flush 0.9% 10 Ml Syringe IVP 10 ml 0100,0900,1700 JEAN Administration - Lab Result Fish Bone Diagrams: 05/01/23 16:23 05/01/23 16:23 - Diagnostic Imaging Results Diagnostic Imaging Results: Final report reviewed - Additional Planning My Orders: My Active Orders 05/01/23 09:00 Sodium Chloride 0.9% [Normal Saline 0.9%] 1,000 ml IV 100 mls/hr 05/01/23 10:56 Acetaminophen 1,000 mg/100 ml [Acetaminophen] 1,000 mg in 100 ml IV Q6HR 05/01/23 13:00 levoFLOXacin 750 MG/150 ML [Levaquin 750 mg/150 ml] 750 mg in 150 ml IV Q48H 05/01/23 Dinner Clear Liquid Diet [DIET] 05/02/23 CULTURE, BLOOD #1 [RM] Routine CULTURE, BLOOD #2 [RM] Routine 05/02/23 05:00 BMP - BASIC METABOLIC PANEL [CHEM] DAILYLAB CBC [CBC - COMP BLD CT W/AUTO DIFF] [HEME] DAILYLAB 05/02/23 09:00 BMP - BASIC METABOLIC PANEL [CHEM] ONCE CBC [CBC - COMP BLD CT W/AUTO DIFF] [HEME] ONCE 05/03/23 05:00 BMP - BASIC METABOLIC PANEL [CHEM] DAILYLAB CBC [CBC - COMP BLD CT W/AUTO DIFF] [HEME] DAILYLAB 05/03/23 09:00 CBC [CBC - COMP BLD CT W/AUTO DIFF] [HEME] ONCE 05/04/23 05:00 BMP - BASIC METABOLIC PANEL [CHEM] DAILYLAB CBC [CBC - COMP BLD CT W/AUTO DIFF] [HEME] DAILYLAB 05/05/23 05:00 BMP - BASIC METABOLIC PANEL [CHEM] DAILYLAB CBC [CBC - COMP BLD CT W/AUTO DIFF] [HEME] DAILYLAB 05/06/23 05:00 BMP - BASIC METABOLIC PANEL [CHEM] DAILYLAB CBC [CBC - COMP BLD CT W/AUTO DIFF] [HEME] DAILYLAB 05/07/23 05:00 BMP - BASIC METABOLIC PANEL [CHEM] DAILYLAB Plan Discussed with:: Family Subjective - Subjective Patient Reports: Other (Acutely encephalopathic. Attempted to call family but was unnsuccessful in obtaining any clear information. Does not appear family is too involved in her care. I asked if they could come to the hospital.) Objective Vital Signs: Vital Signs - 24 hr 1204/30/23 04/30/23 17:40 17:44 17:50 Temperature 37.4 C 37.4 C Heart Rate 80 82 80 Heart Rate [ Brachial] Respiratory 12 17 18 Rate Blood Pressure 114/64 114/64 113/64 Blood Pressure [Left Brachial artery] O2 Saturation 88 L 92 89 L If not protocol 2 2 : Oxygen Flow, liters/minute 04/30/23 04/30/23 04/30/23 17:55 18:00 18:20 Temperature Heart Rate 79 Heart Rate [ Brachial] Respiratory 18 Rate Blood Pressure 108/59 L Blood Pressure [Left Brachial artery] O2 Saturation 85 L 98 96 If not protocol 2 15 2 : Oxygen Flow, liters/minute 04/30/23 04/30/23 04/30/23 18:30 19:00 20:27 Temperature Heart Rate 81 78 71 Heart Rate [ Brachial] Respiratory 19 20 19 Rate Blood Pressure 94/64 67/54 L 119/66 Blood Pressure [Left Brachial artery] O2 Saturation 94 91 L 94 If not protocol 2 2 2 : Oxygen Flow, liters/minute 04/30/23 04/30/23 04/30/23 21:00 22:17 22:30 Temperature Heart Rate 77 74 71 Heart Rate [ Brachial] Respiratory 16 15 14 Rate Blood Pressure 126/77 116/70 117/52 L Blood Pressure [Left Brachial artery] O2 Saturation 97 95 93 If not protocol 2 2 2 : Oxygen Flow, liters/minute 04/30/23 04/30/23 05/01/23 23:00 23:30 00:00 Temperature Heart Rate 75 69 58 L Heart Rate [ Brachial] Respiratory 12 13 14 Rate Blood Pressure 129/78 99/61 66/46 L Blood Pressure [Left Brachial artery] O2 Saturation 94 97 97 If not protocol 2 2 2 : Oxygen Flow, liters/minute 05/01/23 05/01/23 05/01/23 01:00 02:21 02:37 Temperature 36.8 C Heart Rate 68 Heart Rate [ 80 Brachial] Respiratory 16 18 Rate Blood Pressure 101/64 Blood Pressure 121/55 L [Left Brachial artery] O2 Saturation 97 96 If not protocol 2 2 2 : Oxygen Flow, liters/minute 05/01/23 05/01/23 05/01/23 08:54 10:20 13:47 Temperature 36.7 C 37.2 C 38.1 C H Heart Rate Heart Rate [ 99 Brachial] Respiratory 18 Rate Blood Pressure Blood Pressure 127/72 [Left Brachial artery] O2 Saturation 94 If not protocol 2 : Oxygen Flow, liters/minute 05/01/23 05/01/23 05/01/23 14:32 15:14 16:09 Temperature 37.3 C 37.1 C Heart Rate Heart Rate [ 97 Brachial] Respiratory 18 Rate Blood Pressure Blood Pressure 81/46 L [Left Brachial artery] O2 Saturation 92 If not protocol 2 2 : Oxygen Flow, liters/minute 05/01/23 16:40 Temperature Heart Rate Heart Rate [ Brachial] Respiratory Rate Blood Pressure Blood Pressure 109/55 L [Left Brachial artery] O2 Saturation If not protocol : Oxygen Flow, liters/minute Oxygen O2 Source Nasal cannula Oxygen Flow Rate 2 I&O (Last 24 Hrs): Intake and Output Totals x24h 04/29/23 04/30/23 05/01/23 23:59 23:59 23:59 Intake Total 1999 2299 Output Total 925 Balance 1999 1375 General: Mild distress Neuro: Disoriented, Non Focal Cardiovascular: Regular rate, Normal S1, Normal S2 Respiratory: No respiratory distress Abdomen: Soft, No tenderness - Results Results: Laboratory Results WBC 13.0 x10^3/uL (4.8-10.8) H 05/01/23 16: RBC 3.84 10^6/uL (4.20-5.40) L 05/01/23 16:23 Hgb 9.5 g/dL (12.0-16.0) L 05/01/23 16:23 Hct 30.4 % (37.0-47.0) L 05/01/23 16:23 MCV 79.2 fL (81.0-99.0) L 05/01/23 16:23 MCH 24.7 pg (27.0-31.0) L 05/01/23 16:23 MCHC 31.3 g/dL (32.0-36.0) L 05/01/23 16:23 RDW 15.8 % (12.0-15.0) H 05/01/23 16:23 Plt Count 150 10^3/uL (130-450) 05/01/23 16:23 MPV 10.9 fL (7.9-10.8) H 05/01/23 16:23 Neut # (Auto) 11.5 10^3/uL (1.5-6.6) H 05/01/23 16:23 Lymph # (Auto) 0.3 10^3/uL (1.5-3.5) L 05/01/23 16:23 Giles # (Auto) 0.5 10^3/uL (0.0-1.0) 05/01/23 16:23 Eos # (Auto) 0.5 10^3/uL (0.0-0.7) 05/01/23 16:23 Baso # (Auto) 0.1 10^3/uL (0.0-0.1) 05/01/23 16:23 Absolute Nucleated RBC 0.00 x10^3/uL 05/01/23 16:23 Nucleated RBC % 0.0 /100WBC 05/01/23 16:23 Sodium 140 mmol/L (135-145) 05/01/23 16:23 Potassium 3.4 mmol/L (3.5-4.5) L 05/01/23 16:23 Chloride 112 mmol/L (101-111) H 05/01/23 16:23 Carbon Dioxide 18 mmol/L (21-32) L 05/01/23 16:23 Anion Gap 10.0 (6-13) 05/01/23 16:23 BUN 37 mg/dL (6-20) H 05/01/23 16:23 Creatinine 1.5 mg/dL (0.6-1.3) H 05/01/23 16:23 Estimated GFR (MDRD) 33 (>89) L 05/01/23 16:23 Glucose 110 mg/dL (74-104) H 05/01/23 16:23 Lactic Acid 1.0 mmol/L (0.5-2.2) 05/01/23 16:23 Calcium 7.7 mg/dL (8.5-10.3) L 05/01/23 16:23 Total Bilirubin 0.4 mg/dL (0.2-1.0) 04/30/23 18:52 AST 29 IU/L (10-42) 04/30/23 18:52 ALT 14 IU/L (10-60) 04/30/23 18:52 Alkaline Phosphatase 62 IU/L (42-121) 04/30/23 18:52 Total Protein 6.5 g/dL (6.4-8.9) 04/30/23 18:52 Albumin 2.9 g/dL (3.2-5.5) L 04/30/23 18:52 Globulin 3.6 g/dL (2.1-4.2) 04/30/23 18:52 Albumin/Globulin Ratio 0.8 (1.0-2.2) L 04/30/23 18:52 Lipase 18 U/L (11-82) 04/30/23 18:52 Urine Color YELLOW 04/30/23 19:34 Urine Clarity CLOUDY (CLEAR) 04/30/23 19:34 Urine pH >=9.0 PH (5.0-7.5) H 04/30/23 19:34 Ur Specific [place] <=1.005 (1.002-1.030) 04/30/23 19:34 Urine Protein 100 mg/dL (NEGATIVE) H 04/30/23 19:34 Urine Glucose (UA) NEGATIVE mg/dL (NEGATIVE) 04/30/23 19:34 Urine Ketones NEGATIVE mg/dL (NEGATIVE) 04/30/23 19:34 Urine Occult Blood NEGATIVE (NEGATIVE) 04/30/23 19:34 Urine Nitrite NEGATIVE (NEGATIVE) 04/30/23 19:34 Urine Bilirubin NEGATIVE (NEGATIVE) 04/30/23 19:34 Urine Urobilinogen 0.2 (NORMAL) E.U./dL (NORMAL) 04/30/23 19:34 Ur Leukocyte Esterase MODERATE (NEGATIVE) H 04/30/23 19:34 Urine RBC 0-5 /HPF (0-5) 04/30/23 19:34 Urine WBC 11-25 /HPF (0-5) H 04/30/23 19:34 Ur Squamous Epith Cells FEW Squamous (<= Few) 04/30/23 19:34 Amorphous Sediment Few /LPF 04/30/23 19:34 Urine Bacteria Moderate /HPF (None Seen) H 04/30/23 19:34 Ur Microscopic Review INDICATED 04/30/23 19:34 Urine Culture Comments INDICATED 04/30/23 19:34 Nasal Adenovirus (PCR) NOT DETECTED 04/30/23 18:14 Nasal B. parapertussis DNA (PCR) NOT DETECTED 04/30/23 18:14 Nasal Coronavir 229E PCR NOT DETECTED 04/30/23 18:14 Nasal Coronavir HKU1 PCR NOT DETECTED 04/30/23 18:14 Nasal Coronavir NL63 PCR NOT DETECTED 04/30/23 18:14 Nasal Coronavir OC43 PCR NOT DETECTED 04/30/23 18:14 Nasal Enterovir/Rhinovir PCR NOT DETECTED 04/30/23 18:14 Nasal Influenza B PCR NOT DETECTED 04/30/23 18:14 Nasal Influenza A PCR NOT DETECTED 04/30/23 18:14 Nasal Parainfluen 1 PCR NOT DETECTED 04/30/23 18:14 Nasal Parainfluen 2 PCR NOT DETECTED 04/30/23 18:14 Nasal Parainfluen 3 PCR NOT DETECTED 04/30/23 18:14 Nasal Parainfluen 4 PCR NOT DETECTED 04/30/23 18:14 Nasal RSV (PCR) NOT DETECTED 04/30/23 18:14 Nasal B.pertussis DNA PCR NOT DETECTED 04/30/23 18:14 Nasal C.pneumoniae (PCR) NOT DETECTED 04/30/23 18:14 Nathan Human Metapneumo PCR NOT DETECTED 04/30/23 18:14 Nasal M.pneumoniae (PCR) NOT DETECTED 04/30/23 18:14 Nasal SARS-CoV-2 (PCR) NOT DETECTED 04/30/23 18:14 - Procedures Procedures: Procedures CONTINUOUS INVASIVE MECHANICAL VENTILATION <96 CONSEC HRS (09/29/13) INSERT ENDOTRACHEAL TUBE (09/29/13) INSERT GASTRIC TUBE NEC (09/29/13) INSERTION OF INFUSION DEV INTO SUP VENA CAVA, PERC APPROACH (02/14/17) REPLACE CYSTOSTOMY TUBE (06/12/14) RETROGRADE PYELOGRAM (06/12/14) TU BLADDER CLEARANCE (06/12/14) VENOUS CATHETERIZATION NEC (09/29/13) Sepsis Event Note (H) - Evaluation Current Stage of Sepsis: Severe sepsis (patient comfort measures) Possible source of Sepsis: positive: Genitourinary - Sepsis Criteria Sepsis Criteria: Suspected or Documented, WBC count greater than 12,000 or less than 4000, SBP drop more than 40mHg, Metabolic: lactate > 2 mmol/L ABX Reporting Has patient been on IV antibiotics over the past 48 hours?: No
[2023-05-02] MEDS: SODIUM CHLORIDE FLUSH 0.9% 10 ML SYRINGE IVP SCH ×4 (01:05→23:39)
[2023-05-02] MEDS: POTASSIUM CHLOR 10 MEQ/100 ML 10 MEQ/100 ML BAG IV SCH ×4 (08:50→12:34)
[2023-05-02] MEDS: SODIUM CHLORIDE 0.9% 1,000 ML IV SCH (08:58)
--- NOTE | 2023-05-02 10:06 | PHARMACY PROGRESS NOTE ---
- Best Possible Medication History Admit Date and Time: 05/01/23 0036 Processed by: Pharmacy Medication History completed: Yes Patient Interview: Pt unable to participate Secondary Source(s): Facility MAR as ONLY source As the person ultimately responsible for medication therapy, providers are able to order a medication from an existing home medication list in [facility] via the "Reconcile Routine" prior to Confirmation of that medication by naval surface fire support planner. Such practice is discouraged except when the physician, in their clinical judgment, deems that a medical need exists for a medication without regard to previous use.
[2023-05-02] MEDS: ACETAMINOPHEN 1,000 MG/100 ML 1,000 MG/100 ML BAG IV PRN (10:51)
--- NOTE | 2023-05-02 11:28 | PROVIDER PROGRESS NOTE ---
Assessment/Plan - Problem List (1) UTI (urinary tract infection) due to urinary indwelling catheter Assessment/Plan: (1) UTI (urinary tract infection) due to urinary indwelling catheter Assessment/Plan: --Sepsis secondary to suprapubic Reyes catheter infection. Reyes catheter was last exchanged on 04/21. Unclear if exchange occurred in the ED. 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 Will also add metronidazole per pharmacy recommendations. (2) Sepsis Qualifiers: Sepsis type: sepsis due to unspecified organism Sepsis acute organ dysfunction status: without acute organ dysfunction Qualified Code(s): A41.9 - Sepsis, unspecified organism Assessment/Plan: --Continue antibiotics as above. (3) Above knee amputation of left lower extremity Assessment/Plan: --Resides at [facility]. (4) Gram-negative bacteremia Assessment/Plan: -- Blood culture showing gram-negative bacteremia. Repeat blood cultures ordered. Etiology is believed to be her UTI. (5) Acute kidney injury Assessment/Plan: --Baseline creatinine is under 1. --Unfortunately could not obtain AM labs. --Will resume home antihypertensive medications tomorrow. (6) T2DM (type 2 diabetes mellitus) Assessment/Plan: --Obtain A1c. --Patient is not eating. Will start her on SSI. (7) Schizophrenia Qualifiers: Schizophrenia type: unspecified Qualified Code(s): F20.9 - Schizophrenia, unspecified Assessment/Plan: --Resumed home psychiatric medications. --She is acutely encephalopathic so it is unclear what her baseline mental status is. [facility] reports she is communicative at baseline. Dispo: Continue IV antibiotics for her bacteremia. Inpatient. (2) Sepsis Qualifiers: Sepsis type: sepsis due to unspecified organism Sepsis acute organ dysfunction status: without acute organ dysfunction Qualified Code(s): A41.9 - Sepsis, unspecified organism (7) Schizophrenia Qualifiers: Schizophrenia type: unspecified Qualified Code(s): F20.9 - Schizophrenia, unspecified - Current Meds Current Meds: Current Medications Generic Name Dose Route Start Last Admin Trade Name Freq PRN Reason Stop Dose Admin Sodium Chloride 1,000 mls @ 100 mls/hr 05/01/23 09:00 05/02/23 08:58 Normal Saline 0.9% IV 100 mls/hr .Q10H JEAN Administration Acetaminophen 1,000 mg in 100 mls @ 400 mls/hr 05/01/23 10:56 05/02/23 10:51 Acetaminophen IV 400 mls/hr Q6HR PRN Administration Moderate Pain (Level 4-6) Potassium Chloride 10 meq in 100 mls @ 100 mls/hr 05/02/23 08:00 05/02/23 11 :22 Potassium Chloride IV 05/02/23 11:59 100 mls/hr Q1H JEAN Administration Sodium Chloride 10 ml 05/01/23 01:00 05/02/23 08:50 Sodium Chloride Flush 0.9% 10 Ml Syringe IVP 10 ml 0100,0900,1700 JEAN Administration - Lab Result Fish Bone Diagrams: 05/01/23 16:23 05/01/23 16:23 - Additional Planning My Orders: My Active Orders 05/01/23 10:56 Acetaminophen 1,000 mg/100 ml [Acetaminophen] 1,000 mg in 100 ml IV Q6HR 05/01/23 Dinner Clear Liquid Diet [DIET] 05/02/23 CULTURE, BLOOD #1 [RM] Routine CULTURE, BLOOD #2 [RM] Routine 05/02/23 05:00 BMP - BASIC METABOLIC PANEL [CHEM] DAILYLAB CBC [CBC - COMP BLD CT W/AUTO DIFF] [HEME] DAILYLAB 05/02/23 08:00 Potassium Chlor 10 Meq/100 ml [Potassium Chloride] 10 meq in 100 ml IV Q1H 05/02/23 11:00 metroNIDAZOLE 500 MG/100 ML [Flagyl 500 mg/100 ml] 500 mg in 100 ml IV Q8H 05/02/23 21:00 Amitriptyline [Elavil] 25 mg PO HS Buprenorphine [Buprenex] 0.3 mg IM BID Melatonin [Melatonin] 6 mg PO QPM Pregabalin [Lyrica] 300 mg PO BID hydrOXYzine PAMOATE [VistariL] 25 mg PO HS risperiDONE [RisperDAL] 2 mg PO BID 05/03/23 05:00 BMP - BASIC METABOLIC PANEL [CHEM] DAILYLAB CBC [CBC - COMP BLD CT W/AUTO DIFF] [HEME] DAILYLAB MAGNESIUM [CHEM] DAILYLAB 05/03/23 09:00 CBC [CBC - COMP BLD CT W/AUTO DIFF] [HEME] ONCE Aspirin EC [Ecotrin] 81 mg PO DAILY DULoxetine [Cymbalta] 30 mg PO DAILY Lactobacillus Acidophilus [Acidophilus Lactobacilli] 1 each PO DAILY 05/03/23 13:00 levoFLOXacin 750 MG/150 ML [Levaquin 750 mg/150 ml] 750 mg in 150 ml IV Q48H 05/04/23 05:00 BMP - BASIC METABOLIC PANEL [CHEM] DAILYLAB CBC [CBC - COMP BLD CT W/AUTO DIFF] [HEME] DAILYLAB MAGNESIUM [CHEM] DAILYLAB 05/05/23 05:00 BMP - BASIC METABOLIC PANEL [CHEM] DAILYLAB CBC [CBC - COMP BLD CT W/AUTO DIFF] [HEME] DAILYLAB MAGNESIUM [CHEM] DAILYLAB 05/06/23 05:00 BMP - BASIC METABOLIC PANEL [CHEM] DAILYLAB CBC [CBC - COMP BLD CT W/AUTO DIFF] [HEME] DAILYLAB MAGNESIUM [CHEM] DAILYLAB 05/07/23 05:00 BMP - BASIC METABOLIC PANEL [CHEM] DAILYLAB MAGNESIUM [CHEM] DAILYLAB Subjective - Subjective Patient Reports: Resting Comfortably, Other (Remains encephalopathic.) Objective Vital Signs: Vital Signs - 24 hr 05/01/23 05/01/23 05/01/23 13:47 14:32 15:14 Temperature 38.1 C H 37.3 C 37.1 C Heart Rate [ 97 Brachial] Respiratory 18 Rate Blood Pressure 81/46 L [Left Brachial artery] Blood Pressure [Right Brachial artery] O2 Saturation 92 If not protocol 2 : Oxygen Flow, liters/minute 05/01/23 05/01/23 05/02/23 16:40 19:10 00:47 Temperature 36.7 C Heart Rate [ 64 Brachial] Respiratory 18 Rate Blood Pressure 109/55 L [Left Brachial artery] Blood Pressure 115/66 [Right Brachial artery] O2 Saturation 94 If not protocol 2 2 : Oxygen Flow, liters/minute 05/02/23 08:00 Temperature 36.8 C Heart Rate [ 71 Brachial] Respiratory 16 Rate Blood Pressure [Left Brachial artery] Blood Pressure 161/90 H [Right Brachial artery] O2 Saturation 94 If not protocol 2 : Oxygen Flow, liters/minute Oxygen O2 Source Room air Oxygen Flow Rate 2 I&O (Last 24 Hrs): Intake and Output Totals x24h 04/30/23 05/01/23 05/02/23 23:59 23:59 23:59 Intake Total 2000 5003.330 1200 Output Total 1075 425 Balance 1999 3928.330 775 HEENT: Atraumatic, PERRLA, EOMI Neuro: Alert, Disoriented, Non Focal, Speech Slurred Cardiovascular: Regular rate, Normal S1, Normal S2 Respiratory: Chest non-tender, No respiratory distress, Breath sounds nml Abdomen: Normal bowel sounds, Soft, No tenderness - Results Results: Laboratory Results WBC 13.0 x10^3/uL (4.8-10.8) H 05/01/23 16:23 RBC 3.84 10^6/uL (4.20-5.40) L 05/01/23 16:23 Hgb 9.5 g/dL (12.0-16.0) L 05/01/23 16:23 Hct 30.4 % (37.0-47.0) L 05/01/23 16:23 MCV 79.2 fL (81.0-99.0) L 05/01/23 16:23 MCH 24.7 pg (27.0-31.0) L 05/01/23 16:23 MCHC 31.3 g/dL (32.0-36.0) L 05/01/23 16:23 RDW 15.8 % (12.0-15.0) H 05/01/23 16:23 Plt Count 150 10^3/uL (130-450) 05/01/23 16:23 MPV 10.9 fL (7.9-10.8) H 05/01/23 16:23 Neut # (Auto) 11.5 10^3/uL (1.5-6.6) H 05/01/23 16:23 Lymph # (Auto) 0.3 10^3/uL (1.5-3.5) L 05/01/23 16:23 [place] # (Auto) 0.5 10^3/uL (0.0-1.0) 05/01/23 16:23 Eos # (Auto) 0.5 10^3/uL (0.0-0.7) 05/01/23 16:23 Baso # (Auto) 0.1 10^3/uL (0.0-0.1) 05/01/23 16: Absolute Nucleated RBC 0.00 x10^3/uL 05/01/23 16:23 Nucleated RBC % 0.0 /100WBC 05/01/23 16:23 Sodium 140 mmol/L (135-145) 05/01/23 16:23 Potassium 3.4 mmol/L (3.5-4.5) L 05/01/23 16:23 Chloride 112 mmol/L (101-111) H 05/01/23 16:23 Carbon Dioxide 18 mmol/L (21-32) L 05/01/23 16:23 Anion Gap 10.0 (6-13) 05/01/23 16:23 BUN 37 mg/dL (6-20) H 05/01/23 16:23 Creatinine 1.5 mg/dL (0.6-1.3) H 05/01/23 16:23 Estimated GFR (MDRD) 33 (>89) L 05/01/23 16:23 Glucose 110 mg/dL (74-104) H 05/01/23 16:23 Lactic Acid 1.0 mmol/L (0.5-2.2) 05/01/23 16:23 Calcium 7.7 mg/dL (8.5-10.3) L 05/01/23 16:23 Total Bilirubin 0.4 mg/dL (0.2-1.0) 04/30/23 18:52 AST 29 IU/L (10-42) 04/30/23 18:52 ALT 14 IU/L (10-60) 04/30/23 18:52 Alkaline Phosphatase 62 IU/L (42-121) 04/30/23 18:52 Total Protein 6.5 g/dL (6.4-8.9) 04/30/23 18:52 Albumin 2.9 g/dL (3.2-5.5) L 04/30/23 18:52 Globulin 3.6 g/dL (2.1-4.2) 04/30/23 18:52 Albumin/Globulin Ratio 0.8 (1.0-2.2) L 04/30/23 18:52 Lipase 18 U/L (11-82) 04/30/23 18:52 Urine Color YELLOW 04/30/23 19:34 Urine Clarity CLOUDY (CLEAR) 04/30/23 19:34 Urine pH >=9.0 PH (5.0-7.5) H 04/30/23 19:34 Ur Specific [place] <=1.005 (1.002-1.030) 04/30/23 19:34 Urine Protein 100 mg/dL (NEGATIVE) H 04/30/23 19:34 Urine Glucose (UA) NEGATIVE mg/dL (NEGATIVE) 04/30/23 19:34 Urine Ketones NEGATIVE mg/dL (NEGATIVE) 04/30/23 19:34 Urine Occult Blood NEGATIVE (NEGATIVE) 04/30/23 19:34 Urine Nitrite NEGATIVE (NEGATIVE) 04/30/23 19:34 Urine Bilirubin NEGATIVE (NEGATIVE) 04/30/23 19:34 Urine Urobilinogen 0.2 (NORMAL) E.U./dL (NORMAL) 04/30/23 19:34 Ur Leukocyte Esterase MODERATE (NEGATIVE) H 04/30/23 19:34 Urine RBC 0-5 /HPF (0-5) 04/30/23 19:34 Urine WBC 11-25 /HPF (0-5) H 04/30/23 19:34 Ur Squamous Epith Cells FEW Squamous (<= Few) 04/30/23 19:34 Amorphous Sediment Few /LPF 04/30/23 19:34 Urine Bacteria Moderate /HPF (None Seen) H 04/30/23 19:34 Ur Microscopic Review INDICATED 04/30/23 19:34 Urine Culture Comments INDICATED 04/30/23 19:34 Nasal Adenovirus (PCR) NOT DETECTED 04/30/23 18:14 Nasal B. parapertussis DNA (PCR) NOT DETECTED 04/30/23 18:14 Nasal Coronavir 229E PCR NOT DETECTED 04/30/23 18:14 Nasal Coronavir HKU1 PCR NOT DETECTED 04/30/23 18:14 Nasal Coronavir NL63 PCR NOT DETECTED 04/30/23 18:14 Nasal Coronavir OC43 PCR NOT DETECTED 04/30/23 18:14 Nasal Enterovir/Rhinovir PCR NOT DETECTED 04/30/23 18:14 Nasal Influenza B PCR NOT DETECTED 04/30/23 18:14 Nasal Influenza A PCR NOT DETECTED 04/30/23 18:14 Nasal Parainfluen 1 PCR NOT DETECTED 04/30/23 18:14 Nasal Parainfluen 2 PCR NOT DETECTED 04/30/23 18:14 Nasal Parainfluen 3 PCR NOT DETECTED 04/30/23 18:14 Nasal Parainfluen 4 PCR NOT DETECTED 04/30/23 18:14 Nasal RSV (PCR) NOT DETECTED 04/30/23 18:14 Nasal B.pertussis DNA PCR NOT DETECTED 04/30/23 18:14 Nasal C.pneumoniae (PCR) NOT DETECTED 04/30/23 18:14 Nathan Human Metapneumo PCR NOT DETECTED 04/30/23 18:14 Nasal M.pneumoniae (PCR) NOT DETECTED 04/30/23 18:14 Nasal SARS-CoV-2 (PCR) NOT DETECTED 04/30/23 18:14 - Procedures Procedures: Procedures CONTINUOUS INVASIVE MECHANICAL VENTILATION <96 CONSEC HRS (09/29/13) INSERT ENDOTRACHEAL TUBE (09/29/13) INSERT GASTRIC TUBE NEC (09/29/13) INSERTION OF INFUSION DEV INTO SUP VENA CAVA, PERC APPROACH (02/14/17) REPLACE CYSTOSTOMY TUBE (06/12/14) RETROGRADE PYELOGRAM (06/12/14) TU BLADDER CLEARANCE (06/12/14) VENOUS CATHETERIZATION NEC (09/29/13) Sepsis Event Note (H) - Evaluation Current Stage of Sepsis: Severe sepsis (patient comfort measures) Possible source of Sepsis: positive: Genitourinary - Sepsis Criteria Sepsis Criteria: Suspected or Documented, WBC count greater than 12,000 or less than 4000, SBP drop more than 40mHg, Metabolic: lactate > 2 mmol/L
[2023-05-02] MEDS: metroNIDAZOLE 500 MG/100 ML 500 MG/100 ML BAG IV SCH ×2 (11:31→19:32)
--- NOTE | 2023-05-02 18:44 | CONSULTATION NOTE ---
Consultation Report: Called for IV placement. Attempted x3 w/o success. Patient has working IV in Left wrist. Will be available if all IV access is lost. Will consider EJ IV placement.
[2023-05-02] MEDS: PREGABALIN 100 MG CAPSULE PO SCH (20:36)
[2023-05-02] MEDS: AMITRIPTYLINE 25 MG TABLET PO SCH (20:41)
[2023-05-02] MEDS: hydrOXYzine PAMOATE 25 MG CAPSULE PO SCH (20:41)
[2023-05-02] MEDS: risperiDONE 1 MG TABLET PO SCH (20:44)
[2023-05-02] MEDS: BUPRENORPHINE 0.3 MG/ML VIAL IM SCH ×2 (20:49→20:58)
[2023-05-02] MEDS ORDERED: NON FORMULARY MED (Melatonin [Melatonin] 3 MG Tablet) PO SCH (21:00)
[2023-05-03] MEDS: SODIUM CHLORIDE 0.9% 1,000 ML IV SCH (01:02)
[2023-05-03] MEDS: ACETAMINOPHEN 1,000 MG/100 ML 1,000 MG/100 ML BAG IV PRN (01:11)
[2023-05-03] MEDS: metroNIDAZOLE 500 MG/100 ML 500 MG/100 ML BAG IV SCH ×3 (03:20→18:33)
[2023-05-03 08:06] LABS: BASOPHILS % (AUTO) 0.4 %; EOSINOPHILS # (AUTO) 0.2 10^3/uL (0.0-0.7); EOSINOPHILS % (AUTO) 1.6 %; HCT - HEMATOCRIT 29.7 % (37.0-47.0); HGB - HEMOGLOBIN 9.3 g/dL (12.0-16.0); LYMPHOCYTES # (AUTO) 1.1 10^3/uL (1.5-3.5); LYMPHOCYTES % (AUTO) 11.8 %; MEAN CORPUSCULAR HEMOGLOBIN 24.7 pg (27.0-31.0); MEAN CORPUSCULAR HGB CONC 31.3 g/dL (32.0-36.0); MEAN CORPUSCULAR VOLUME 78.8 fL (81.0-99.0); MEAN PLATELET VOLUME 11.4 fL (7.9-10.8); MONOCYTES # (AUTO) 0.6 10^3/uL (0.0-1.0); MONOCYTES % (AUTO) 6.8 %; NEUTROPHILS # (AUTO) 7.3 10^3/uL (1.5-6.6); PLT - PLATELET COUNT 133 10^3/uL (130-450); RED BLOOD COUNT 3.77 10^6/uL (4.20-5.40); RED CELL DISTRIBUTION WIDTH 16.6 % (12.0-15.0); WHITE BLOOD COUNT 9.2 x10^3/uL (4.8-10.8)
[2023-05-03] MEDS: SACCHAROMYCES BOULARDII 250 MG CAPSULE PO SCH (08:15)
[2023-05-03] MEDS: BUPRENORPHINE 0.3 MG/ML VIAL IM SCH ×2 (08:16→20:40)
[2023-05-03] MEDS: risperiDONE 1 MG TABLET PO SCH ×2 (08:16→20:41)
[2023-05-03] MEDS: PREGABALIN 100 MG CAPSULE PO SCH ×2 (08:16→20:40)
[2023-05-03] MEDS: ASPIRIN EC 81 MG TABLET PO SCH (08:16)
[2023-05-03] MEDS: SODIUM CHLORIDE FLUSH 0.9% 10 ML SYRINGE IVP SCH ×2 (08:20→15:51)
[2023-05-03 08:26] LABS: CALCIUM 8.2 mg/dL (8.5-10.3); MAGNESIUM 1.8 mg/dL (1.7-2.3); POTASSIUM 3.6 mmol/L (3.5-4.5)
[2023-05-03] MEDS: DULoxetine 30 MG CAPSULE PO SCH (09:01)
--- NOTE | 2023-05-03 11:38 | PROVIDER PROGRESS NOTE ---
Assessment/Plan - Problem List (1) UTI (urinary tract infection) due to urinary indwelling catheter Assessment/Plan: (1) UTI (urinary tract infection) due to urinary indwelling catheter Assessment/Plan: --Sepsis secondary to suprapubic Reyes catheter infection. Reyes catheter was last exchanged on 04/21. Unclear if exchange occurred in the ED. 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 Will also add metronidazole per pharmacy recommendations. --Repeat blood cultures are pending. If they are negative can transition to PO antibiotics for duration of course and discharge. (2) Sepsis Qualifiers: Sepsis type: sepsis due to unspecified organism Sepsis acute organ dysfunction status: without acute organ dysfunction Qualified Code(s): A41.9 - Sepsis, unspecified organism Assessment/Plan: --Continue antibiotics as above. (3) Above knee amputation of left lower extremity Assessment/Plan: --Resides at [facility]. (4) Gram-negative bacteremia Assessment/Plan: -- Blood culture showing gram-negative bacteremia. Repeat blood cultures ordered. Etiology is believed to be her UTI. (5) Acute kidney injury Assessment/Plan: --Baseline creatinine is under 1. --Unfortunately could not obtain AM labs. --Will resume home antihypertensive medications tomorrow. (6) T2DM (type 2 diabetes mellitus) Assessment/Plan: --Obtain A1c. --Patient is not eating. Will start her on SSI. (7) Schizophrenia Qualifiers: Schizophrenia type: unspecified Qualified Code(s): F20.9 - Schizophrenia, unspecified Assessment/Plan: --Resumed home psychiatric medications. --She is acutely encephalopathic so it is unclear what her baseline mental status is. [facility] reports she is communicative at baseline. Dispo: Continue IV antibiotics for her bacteremia. Inpatient. (2) Sepsis Qualifiers: Sepsis type: sepsis due to unspecified organism Sepsis acute organ dysfunction status: without acute organ dysfunction Qualified Code(s): A41.9 - Sepsis, unspecified organism (7) Schizophrenia Qualifiers: Schizophrenia type: unspecified Qualified Code(s): F20.9 - Schizophrenia, unspecified - Current Meds Current Meds: Current Medications Generic Name Dose Route Start Last Admin Trade Name Freq PRN Reason Stop Dose Admin Amitriptyline HCl 25 mg 05/02/23 21:00 05/02/23 20:41 Amitriptyline 25 Mg Tablet PO 25 mg HS JEAN Administration Aspirin 81 mg 05/03/23 09:00 05/03/23 08:16 Aspirin Ec 81 Mg Tablet PO 81 mg DAILY JEAN Administration Buprenorphine 0.3 mg 05/02/23 21:00 05/03/23 08:16 Buprenorphine 0.3 Mg/Ml Vial IM Not Given BID JEAN Duloxetine HCl 30 mg 05/03/23 09:00 05/03/23 09:01 Duloxetine 30 Mg Capsule PO 30 mg DAILY JEAN Administration Hydroxyzine Pamoate 25 mg 05/02/23 21:00 05/02/23 20:41 Hydroxyzine Pamoate 25 Mg Capsule PO 25 mg HS JEAN Administration Acetaminophen 1,000 mg in 100 mls @ 400 mls/hr 05/01/23 10:56 05/03/23 02:02 Acetaminophen IV Infused Q6HR PRN Infusion Moderate Pain (Level 4-6) Metronidazole 500 mg in 100 mls @ 100 mls/hr 05/02/23 11:00 05/03/23 05:08 Flagyl 500 Mg/100 Ml IV Infused Q8H JEAN Infusion Pregabalin 300 mg 05/02/23 21:00 05/03/23 08:16 Pregabalin 100 Mg Capsule PO 300 mg BID JEAN Administration Risperidone 2 mg 05/02/23 21:00 05/03/23 08:16 Risperidone 1 Mg Tablet PO 2 mg BID JEAN Administration Saccharomyces Boulardii 250 mg 05/03/23 09:00 05/03/23 08:15 Saccharomyces Boulardii 250 Mg Capsule PO 250 mg DAILY JEAN Administration Sodium Chloride 10 ml 05/01/23 01:00 05/03/23 08:20 Sodium Chloride Flush 0.9% 10 Ml Syringe IVP 10 ml 0100,0900,1700 JEAN Administration - Lab Result Fish Bone Diagrams: 05/03/23 07:48 05/03/23 07:48 - Additional Planning My Orders: My Active Orders 05/02/23 11:00 metroNIDAZOLE 500 MG/100 ML [Flagyl 500 mg/100 ml] 500 mg in 100 ml IV Q8H 05/02/23 21:00 Amitriptyline [Elavil] 25 mg PO HS Buprenorphine [Buprenex] 0.3 mg IM BID Pregabalin [Lyrica] 300 mg PO BID hydrOXYzine PAMOATE [VistariL] 25 mg PO HS risperiDONE [RisperDAL] 2 mg PO BID 05/03/23 09:00 Aspirin EC [Ecotrin] 81 mg PO DAILY DULoxetine [Cymbalta] 30 mg PO DAILY Saccharomyces Boulardii [Florastor] 250 mg PO DAILY 05/03/23 13:00 levoFLOXacin 750 MG/150 ML [Levaquin 750 mg/150 ml] 750 mg in 150 ml IV Q48H 05/04/23 05:00 BMP - BASIC METABOLIC PANEL [CHEM] DAILYLAB CBC [CBC - COMP BLD CT W/AUTO DIFF] [HEME] DAILYLAB MAGNESIUM [CHEM] DAILYLAB 05/05/23 05:00 BMP - BASIC METABOLIC PANEL [CHEM] DAILYLAB CBC [CBC - COMP BLD CT W/AUTO DIFF] [HEME] DAILYLAB MAGNESIUM [CHEM] DAILYLAB 05/06/23 05:00 BMP - BASIC METABOLIC PANEL [CHEM] DAILYLAB CBC [CBC - COMP BLD CT W/AUTO DIFF] [HEME] DAILYLAB MAGNESIUM [CHEM] DAILYLAB 05/07/23 05:00 BMP - BASIC METABOLIC PANEL [CHEM] DAILYLAB MAGNESIUM [CHEM] DAILYLAB Subjective - Subjective Patient Reports: No Complaints Objective Vital Signs: Vital Signs - 24 hr 05/02/23 05/03/23 05/03/23 16:00 01:10 02:33 Temperature 36.6 C 38.2 C H 38.5 C H Heart Rate [ 74 71 Brachial] Respiratory 16 16 Rate Blood Pressure 163/98 H [Right Brachial artery] Blood Pressure 151/86 H [Right Radial artery] O2 Saturation 94 95 05/03/23 05/03/23 02:50 07:36 Temperature 36.5 C 37 C Heart Rate [ 66 Brachial] Respiratory 20 Rate Blood Pressure 164/86 H [Right Brachial artery] Blood Pressure [Right Radial artery] O2 Saturation 92 Oxygen O2 Source Room air Oxygen Flow Rate 2 I&O (Last 24 Hrs): Intake and Output Totals x24h 05/01/23 05/02/23 05/03/23 23:59 23:59 23:59 Intake Total 5003.330 3420.000 200 Output Total 1075 1775 700 Balance 3928.330 1645.000 -500 General: Alert, Cooperative HEENT: Atraumatic Cardiovascular: Regular rate, Normal S1, Normal S2 Respiratory: Chest non-tender, No respiratory distress, Breath sounds nml Abdomen: Normal bowel sounds, No tenderness - Results Results: Laboratory Results WBC 9.2 x10^3/uL (4.8-10.8) 05/03/23 07:48 RBC 3.77 10^6/uL (4.20-5.40) L 05/03/23 07:48 Hgb 9.3 g/dL (12.0-16.0) L 05/03/23 07:48 Hct 29.7 % (37.0-47.0) L 05/03/23 07:48 MCV 78.8 fL (81.0-99.0) L 05/03/23 07:48 MCH 24.7 pg (27.0-31.0) L 05/03/23 07:48 MCHC 31.3 g/dL (32.0-36.0) L 05/03/23 07:48 RDW 16.6 % (12.0-15.0) H 05/03/23 07:48 Plt Count 133 10^3/uL (130-450) 05/03/23 07:48 MPV 11.4 fL (7.9-10.8) H 05/03/23 07:48 Neut # (Auto) 7.3 10^3/uL (1.5-6.6) H 05/03/23 07:48 Lymph # (Auto) 1.1 10^3/uL (1.5-3.5) L 05/03/23 07:48 [place] # (Auto) 0.6 10^3/uL (0.0-1.0) 05/03/23 07:48 Eos # (Auto) 0.2 10^3/uL (0.0-0.7) 05/03/23 07:48 Baso # (Auto) 0.0 10^3/uL (0.0-0.1) 05/03/23 07:48 Absolute Nucleated RBC 0.00 x10^3/uL 05/03/23 07:48 Nucleated RBC % 0.0 /100WBC 05/03/23 07:48 Sodium 144 mmol/L (135-145) 05/03/23 07:48 Potassium 3.6 mmol/L (3.5-4.5) 05/03/23 07:48 Chloride 117 mmol/L (101-111) H 05/03/23 07:48 Carbon Dioxide 18 mmol/L (21-32) L 05/03/23 07:48 Anion Gap 9.0 (6-13) 05/03/23 07:48 BUN 27 mg/dL (6-20) H 05/03/23 07:48 Creatinine 1.0 mg/dL (0.6-1.3) 05/03/23 07:48 Estimated GFR (MDRD) 53 (>89) L 05/03/23 07:48 Glucose 62 mg/dL (74-104) L 05/03/23 07:48 Lactic Acid 1.0 mmol/L (0.5-2.2) 05/01/23 16:23 Calcium 8.2 mg/dL (8.5-10.3) L 05/03/23 07:48 Magnesium 1.8 mg/dL (1.7-2.3) 05/03/23 07:48 Total Bilirubin 0.4 mg/dL (0.2-1.0) 04/30/23 18:52 AST 29 IU/L (10-42) 04/30/23 18:52 ALT 14 IU/L (10-60) 04/30/23 18:52 Alkaline Phosphatase 62 IU/L (42-121) 04/30/23 18:52 Total Protein 6.5 g/dL (6.4-8.9) 04/30/23 18:52 Albumin 2.9 g/dL (3.2-5.5) L 04/30/23 18:52 Globulin 3.6 g/dL (2.1-4.2) 04/30/23 18:52 Albumin/Globulin Ratio 0.8 (1.0-2.2) L 04/30/23 18:52 Lipase 18 U/L (11-82) 04/30/23 18:52 Urine Color YELLOW 04/30/23 19:34 Urine Clarity CLOUDY (CLEAR) 04/30/23 19:34 Urine pH >=9.0 PH (5.0-7.5) H 04/30/23 19:34 Ur Specific [place] <=1.005 (1.002-1.030) 04/30/23 19:34 Urine Protein 100 mg/dL (NEGATIVE) H 04/30/23 19:34 Urine Glucose (UA) NEGATIVE mg/dL (NEGATIVE) 04/30/23 19:34 Urine Ketones NEGATIVE mg/dL (NEGATIVE) 04/30/23 19:34 Urine Occult Blood NEGATIVE (NEGATIVE) 04/30/23 19:34 Urine Nitrite NEGATIVE (NEGATIVE) 04/30/23 19:34 Urine Bilirubin NEGATIVE (NEGATIVE) 04/30/23 19:34 Urine Urobilinogen 0.2 (NORMAL) E.U./dL (NORMAL) 04/30/23 19:34 Ur Leukocyte Esterase MODERATE (NEGATIVE) H 04/30/23 19:34 Urine RBC 0-5 /HPF (0-5) 04/30/23 19:34 Urine WBC 11-25 /HPF (0-5) H 04/30/23 19:34 Ur Squamous Epith Cells FEW Squamous (<= Few) 04/30/23 19:34 Amorphous Sediment Few /LPF 04/30/23 19:34 Urine Bacteria Moderate /HPF (None Seen) H 04/30/23 19:34 Ur Microscopic Review INDICATED 04/30/23 19:34 Urine Culture Comments INDICATED 04/30/23 19:34 Nasal Adenovirus (PCR) NOT DETECTED 04/30/23 18:14 Nasal B. parapertussis DNA (PCR) NOT DETECTED 04/30/23 18:14 Nasal Coronavir 229E PCR NOT DETECTED 04/30/23 18:14 Nasal Coronavir HKU1 PCR NOT DETECTED 04/30/23 18:14 Nasal Coronavir NL63 PCR NOT DETECTED 04/30/23 18:14 Nasal Coronavir OC43 PCR NOT DETECTED 04/30/23 18:14 Nasal Enterovir/Rhinovir PCR NOT DETECTED 04/30/23 18:14 Nasal Influenza B PCR NOT DETECTED 04/30/23 18:14 Nasal Influenza A PCR NOT DETECTED 04/30/23 18:14 Nasal Parainfluen 1 PCR NOT DETECTED 04/30/23 18:14 Nasal Parainfluen 2 PCR NOT DETECTED 04/30/23 18:14 Nasal Parainfluen 3 PCR NOT DETECTED 04/30/23 18:14 Nasal Parainfluen 4 PCR NOT DETECTED 04/30/23 18:14 Nasal RSV (PCR) NOT DETECTED 04/30/23 18:14 Nasal B.pertussis DNA PCR NOT DETECTED 04/30/23 18:14 Nasal C.pneumoniae (PCR) NOT DETECTED 04/30/23 18:14 Nathan Human Metapneumo PCR NOT DETECTED 04/30/23 18:14 Nasal M.pneumoniae (PCR) NOT DETECTED 04/30/23 18:14 Nasal SARS-CoV-2 (PCR) NOT DETECTED 04/30/23 18:14 - Procedures Procedures: Procedures CONTINUOUS INVASIVE MECHANICAL VENTILATION <96 CONSEC HRS (09/29/13) INSERT ENDOTRACHEAL TUBE (09/29/13) INSERT GASTRIC TUBE NEC (09/29/13) INSERTION OF INFUSION DEV INTO SUP VENA CAVA, PERC APPROACH (02/14/17) REPLACE CYSTOSTOMY TUBE (06/12/14) RETROGRADE PYELOGRAM (06/12/14) TU BLADDER CLEARANCE (06/12/14) VENOUS CATHETERIZATION NEC (09/29/13) Sepsis Event Note (H) - Evaluation Current Stage of Sepsis: Severe sepsis (patient comfort measures) Possible source of Sepsis: positive: Genitourinary - Sepsis Criteria Sepsis Criteria: Suspected or Documented, WBC count greater than 12,000 or less than 4000, SBP drop more than 40mHg, Metabolic: lactate > 2 mmol/L
[2023-05-03] MEDS ORDERED: levoFLOXacin 750 MG/150 ML 750 MG/150 ML BAG IV SCH (13:00)
[2023-05-03] MEDS: AMITRIPTYLINE 25 MG TABLET PO SCH (20:40)
[2023-05-03] MEDS: hydrOXYzine PAMOATE 25 MG CAPSULE PO SCH (20:40)
[2023-05-04] MEDS: SODIUM CHLORIDE FLUSH 0.9% 10 ML SYRINGE IVP SCH ×4 (01:04→23:29)
[2023-05-04] MEDS: metroNIDAZOLE 500 MG/100 ML 500 MG/100 ML BAG IV SCH (02:52)
[2023-05-04 05:41] LABS: BASOPHILS # (AUTO) 0.1 10^3/uL (0.0-0.1); BASOPHILS % (AUTO) 0.6 %; EOSINOPHILS # (AUTO) 0.3 10^3/uL (0.0-0.7); EOSINOPHILS % (AUTO) 3.6 %; HCT - HEMATOCRIT 28.8 % (37.0-47.0); HGB - HEMOGLOBIN 9.2 g/dL (12.0-16.0); LYMPHOCYTES # (AUTO) 1.3 10^3/uL (1.5-3.5); MEAN CORPUSCULAR HEMOGLOBIN 25.1 pg (27.0-31.0); MEAN CORPUSCULAR HGB CONC 31.9 g/dL (32.0-36.0); MEAN CORPUSCULAR VOLUME 78.7 fL (81.0-99.0); MEAN PLATELET VOLUME 11.9 fL (7.9-10.8); MONOCYTES # (AUTO) 0.8 10^3/uL (0.0-1.0); MONOCYTES % (AUTO) 9.5 %; NEUTROPHILS # (AUTO) 5.4 10^3/uL (1.5-6.6); NEUTROPHILS % (AUTO) 68.7 %; PLT - PLATELET COUNT 109 10^3/uL (130-450); RED BLOOD COUNT 3.66 10^6/uL (4.20-5.40); RED CELL DISTRIBUTION WIDTH 16.4 % (12.0-15.0); WHITE BLOOD COUNT 7.9 x10^3/uL (4.8-10.8)
[2023-05-04 06:04] LABS: CALCIUM 8.2 mg/dL (8.5-10.3); CREATININE 0.8 mg/dL (0.6-1.3); MAGNESIUM 1.7 mg/dL (1.7-2.3); POTASSIUM 3.4 mmol/L (3.5-4.5)
[2023-05-04] MEDS: MEROPENEM 1 GM in SODIUM CHLORIDE 0.9% MINIBAG 100 ML IV SCH ×3 (08:49→23:29)
[2023-05-04] MEDS: SACCHAROMYCES BOULARDII 250 MG CAPSULE PO SCH (09:27)
[2023-05-04] MEDS: BUPRENORPHINE 0.3 MG/ML VIAL IM SCH ×2 (09:27→20:46)
[2023-05-04] MEDS: risperiDONE 1 MG TABLET PO SCH ×2 (09:27→20:46)
[2023-05-04] MEDS: ASPIRIN EC 81 MG TABLET PO SCH (09:27)
[2023-05-04] MEDS: DULoxetine 30 MG CAPSULE PO SCH (09:27)
[2023-05-04] MEDS: PREGABALIN 100 MG CAPSULE PO SCH ×2 (09:27→20:46)
--- NOTE | 2023-05-04 10:45 | PROVIDER PROGRESS NOTE ---
Assessment/Plan - Problem List (1) UTI (urinary tract infection) due to urinary indwelling catheter Assessment/Plan: (1) UTI (urinary tract infection) due to urinary indwelling catheter Assessment/Plan: --Sepsis secondary to suprapubic Reyes catheter infection. Reyes catheter was last exchanged on 04/21. Unclear if exchange occurred in the ED but no change was documented. --Blood cultures from 05/02 returned positive for gram negative bacteremia. PCR from 05/04 showing enterobacterales. Failed trial of Levofloxacin and metronidazole. Will start her on meropenem and repeat blood cultures tomorrow. --She will need 14 total days of antibiotics. Unfortunately will need to be IV for the entirety of duration given her allergies. 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 Dispo will be either return to [facility] or swing bed. (2) Sepsis Qualifiers: Sepsis type: sepsis due to unspecified organism Sepsis acute organ dysfunction status: without acute organ dysfunction Qualified Code(s): A41.9 - Sepsis, unspecified organism Assessment/Plan: --Continue antibiotics as above. (3) Above knee amputation of left lower extremity Assessment/Plan: --Resides at [facility]. (4) Gram-negative bacteremia Assessment/Plan: -- Blood culture showing gram-negative bacteremia. Repeat blood cultures ordered. Etiology is believed to be her UTI. --Currently on meropenem. (5) Acute kidney injury Assessment/Plan: --Baseline creatinine is under 1. --Resolved. (6) T2DM (type 2 diabetes mellitus) Assessment/Plan: --Obtain A1c. --Patient is not eating and is having hypoglycemic episodes. --Diet consulted. (7) Schizophrenia Qualifiers: Schizophrenia type: unspecified Qualified Code(s): F20.9 - Schizophrenia, unspecified Assessment/Plan: --Resumed home psychiatric medications. Dispo: Continue IV antibiotics for her bacteremia. Inpatient. (2) Sepsis Qualifiers: Sepsis type: sepsis due to unspecified organism Sepsis acute organ dysfunction status: without acute organ dysfunction Qualified Code(s): A41.9 - Sepsis, unspecified organism (7) Schizophrenia Qualifiers: Schizophrenia type: unspecified Qualified Code(s): F20.9 - Schizophrenia, unspecified - Current Meds Current Meds: Current Medications Generic Name Dose Route Start Last Admin Trade Name Freq PRN Reason Stop Dose Admin Amitriptyline HCl 25 mg 05/02/23 21:00 05/03/23 20:40 Amitriptyline 25 Mg Tablet PO 25 mg HS JEAN Administration Aspirin 81 mg 05/03/23 09:00 05/04/23 09:27 Aspirin Ec 81 Mg Tablet PO 81 mg DAILY JEAN Administration Buprenorphine 0.3 mg 05/02/23 21:00 05/04/23 09:27 Buprenorphine 0.3 Mg/Ml Vial IM 0.3 mg BID JEAN Administration Duloxetine HCl 30 mg 05/03/23 09:00 05/04/23 09:27 Duloxetine 30 Mg Capsule PO 30 mg DAILY JEAN Administration Hydroxyzine Pamoate 25 mg 05/02/23 21:00 05/03/23 20:40 Hydroxyzine Pamoate 25 Mg Capsule PO 25 mg HS JEAN Administration Acetaminophen 1,000 mg in 100 mls @ 400 mls/hr 05/01/23 10:56 05/03/23 02:02 Acetaminophen IV Infused Q6HR PRN Infusion Moderate Pain (Level 4-6) Meropenem 1 gm/ Sodium 100 mls @ 200 mls/hr 05/04/23 08:00 05/04/23 09:20 Chloride IV Infused Q8H JEAN Infusion Pregabalin 300 mg 05/02/23 21:00 05/04/23 09:27 Pregabalin 100 Mg Capsule PO 300 mg BID JEAN Administration Risperidone 2 mg 05/02/23 21:00 05/04/23 09:27 Risperidone 1 Mg Tablet PO 2 mg BID JEAN Administration Saccharomyces Boulardii 250 mg 05/03/23 09:00 05/04/23 09:27 Saccharomyces Boulardii 250 Mg Capsule PO 250 mg DAILY JEAN Administration Sodium Chloride 10 ml 05/01/23 01:00 05/04/23 02:53 Sodium Chloride Flush 0.9% 10 Ml Syringe IVP 10 ml 0100,0900,1700 JEAN Administration - Lab Result Fish Bone Diagrams: 05/04/23 05:07 05/04/23 05:07 - Additional Planning My Orders: My Active Orders 05/04/23 08:00 Meropenem [Merrem] 1 gm Sodium Chloride 0.9% Minibag [Normal Saline 0.9% Min ibag] 100 ml IV Q8H 05/05/23 05:00 BMP - BASIC METABOLIC PANEL [CHEM] DAILYLAB Blood Culture [CULTURE, BLOOD #1] [RM] Routine CBC [CBC - COMP BLD CT W/AUTO DIFF] [HEME] DAILYLAB MAGNESIUM [CHEM] DAILYLAB 05/06/23 05:00 BMP - BASIC METABOLIC PANEL [CHEM] DAILYLAB CBC [CBC - COMP BLD CT W/AUTO DIFF] [HEME] DAILYLAB MAGNESIUM [CHEM] DAILYLAB 05/07/23 05:00 BMP - BASIC METABOLIC PANEL [CHEM] DAILYLAB MAGNESIUM [CHEM] DAILYLAB Subjective - Subjective Patient Reports: Feeling Better, Resting Comfortably, No Complaints Objective Vital Signs: Vital Signs - 24 hr 05/03/23 05/04/23 16:00 00:59 Temperature 37.2 C 37.0 C Heart Rate [ 54 L 53 L Brachial] Respiratory 20 18 Rate Blood Pressure 146/80 H [Right Brachial artery] Blood Pressure 166/86 H [Right Radial artery] O2 Saturation 92 95 Oxygen O2 Source Room air Oxygen Flow Rate 2 I&O (Last 24 Hrs): Intake and Output Totals x24h 05/02/23 05/03/23 05/04/23 23:59 23:59 23:59 Intake Total 3420.000 2750 200 Output Total 1775 2600 425 Balance 1645.000 150 -225 General: Alert, Cooperative, No acute distress Neuro: Alert, Disoriented Cardiovascular: Regular rate, Normal S1, Normal S2 Respiratory: Chest non-tender, No respiratory distress, Breath sounds nml Abdomen: Normal bowel sounds, No tenderness - Results Results: Laboratory Results WBC 7.9 x10^3/uL (4.8-10.8) 05/04/23 05:07 RBC 3.66 10^6/uL (4.20-5.40) L 05/04/23 05:07 Hgb 9.2 g/dL (12.0-16.0) L 05/04/23 05:07 Hct 28.8 % (37.0-47.0) L 05/04/23 05:07 MCV 78.7 fL (81.0-99.0) L 05/04/23 05:07 MCH 25.1 pg (27.0-31.0) L 05/04/23 05:07 MCHC 31.9 g/dL (32.0-36.0) L 05/04/23 05:07 RDW 16.4 % (12.0-15.0) H 05/04/23 05:07 Plt Count 109 10^3/uL (130-450) L 05/04/23 05:07 MPV 11.9 fL (7.9-10.8) H 05/04/23 05:07 Neut # (Auto) 5.4 10^3/uL (1.5-6.6) 05/04/23 05:07 Lymph # (Auto) 1.3 10^3/uL (1.5-3.5) L 05/04/23 05:07 [place] # (Auto) 0.8 10^3/uL (0.0-1.0) 05/04/23 05:07 Eos # (Auto) 0.3 10^3/uL (0.0-0.7) 05/04/23 05:07 Baso # (Auto) 0.1 10^3/uL (0.0-0.1) 05/04/23 05:07 Absolute Nucleated RBC 0.00 x10^3/uL 05/04/23 05:07 Nucleated RBC % 0.0 /100WBC 05/04/23 05:07 Sodium 143 mmol/L (135-145) 05/04/23 05:07 Potassium 3.4 mmol/L (3.5-4.5) L 05/04/23 05:07 Chloride 115 mmol/L (101-111) H 05/04/23 05:07 Carbon Dioxide 23 mmol/L (21-32) 05/04/23 05:07 Anion Gap 5.0 (6-13) L 05/04/23 05:07 BUN 17 mg/dL (6-20) 05/04/23 05:07 Creatinine 0.8 mg/dL (0.6-1.3) 05/04/23 05:07 Estimated GFR (MDRD) 69 (>89) L 05/04/23 05:07 Glucose 92 mg/dL (74-104) 05/04/23 05:07 Lactic Acid 1.0 mmol/L (0.5-2.2) 05/01/23 16:23 Calcium 8.2 mg/dL (8.5-10.3) L 05/04/23 05:07 Magnesium 1.7 mg/dL (1.7-2.3) 05/04/23 05:07 Total Bilirubin 0.4 mg/dL (0.2-1.0) 04/30/23 18:52 AST 29 IU/L (10-42) 04/30/23 18:52 ALT 14 IU/L (10-60) 04/30/23 18:52 Alkaline Phosphatase 62 IU/L (42-121) 04/30/23 18:52 Total Protein 6.5 g/dL (6.4-8.9) 04/30/23 18:52 Albumin 2.9 g/dL (3.2-5.5) L 04/30/23 18:52 Globulin 3.6 g/dL (2.1-4.2) 04/30/23 18:52 Albumin/Globulin Ratio 0.8 (1.0-2.2) L 04/30/23 18:52 Lipase 18 U/L (11-82) 04/30/23 18:52 Urine Color YELLOW 04/30/23 19:34 Urine Clarity CLOUDY (CLEAR) 04/30/23 19:34 Urine pH >=9.0 PH (5.0-7.5) H 04/30/23 19:34 Ur Specific [place] <=1.005 (1.002-1.030) 04/30/23 19:34 Urine Protein 100 mg/dL (NEGATIVE) H 04/30/23 19:34 Urine Glucose (UA) NEGATIVE mg/dL (NEGATIVE) 04/30/23 19:34 Urine Ketones NEGATIVE mg/dL (NEGATIVE) 04/30/23 19:34 Urine Occult Blood NEGATIVE (NEGATIVE) 04/30/23 19:34 Urine Nitrite NEGATIVE (NEGATIVE) 04/30/23 19:34 Urine Bilirubin NEGATIVE (NEGATIVE) 04/30/23 19:34 Urine Urobilinogen 0.2 (NORMAL) E.U./dL (NORMAL) 04/30/23 19:34 Ur Leukocyte Esterase MODERATE (NEGATIVE) H 04/30/23 19:34 Urine RBC 0-5 /HPF (0-5) 04/30/23 19:34 Urine WBC 11-25 /HPF (0-5) H 04/30/23 19:34 Ur Squamous Epith Cells FEW Squamous (<= Few) 04/30/23 19:34 Amorphous Sediment Few /LPF 04/30/23 19:34 Urine Bacteria Moderate /HPF (None Seen) H 04/30/23 19:34 Ur Microscopic Review INDICATED 04/30/23 19:34 Urine Culture Comments INDICATED 04/30/23 19:34 Nasal Adenovirus (PCR) NOT DETECTED 04/30/23 18:14 Nasal B. parapertussis DNA (PCR) NOT DETECTED 04/30/23 18:14 Nasal Coronavir 229E PCR NOT DETECTED 04/30/23 18:14 Nasal Coronavir HKU1 PCR NOT DETECTED 04/30/23 18:14 Nasal Coronavir NL63 PCR NOT DETECTED 04/30/23 18:14 Nasal Coronavir OC43 PCR NOT DETECTED 04/30/23 18:14 Nasal Enterovir/Rhinovir PCR NOT DETECTED 04/30/23 18:14 Nasal Influenza B PCR NOT DETECTED 04/30/23 18:14 Nasal Influenza A PCR NOT DETECTED 04/30/23 18:14 Nasal Parainfluen 1 PCR NOT DETECTED 04/30/23 18:14 Nasal Parainfluen 2 PCR NOT DETECTED 04/30/23 18:14 Nasal Parainfluen 3 PCR NOT DETECTED 04/30/23 18:14 Nasal Parainfluen 4 PCR NOT DETECTED 04/30/23 18:14 Nasal RSV (PCR) NOT DETECTED 04/30/23 18:14 Nasal B.pertussis DNA PCR NOT DETECTED 04/30/23 18:14 Nasal C.pneumoniae (PCR) NOT DETECTED 04/30/23 18:14 Nathan Human Metapneumo PCR NOT DETECTED 04/30/23 18:14 Nasal M.pneumoniae (PCR) NOT DETECTED 04/30/23 18:14 Nasal SARS-CoV-2 (PCR) NOT DETECTED 04/30/23 18:14 - Procedures Procedures: Procedures CONTINUOUS INVASIVE MECHANICAL VENTILATION <96 CONSEC HRS (09/29/13) INSERT ENDOTRACHEAL TUBE (09/29/13) INSERT GASTRIC TUBE NEC (09/29/13) INSERTION OF INFUSION DEV INTO SUP VENA CAVA, PERC APPROACH (02/14/17) REPLACE CYSTOSTOMY TUBE (06/12/14) RETROGRADE PYELOGRAM (06/12/14) TU BLADDER CLEARANCE (06/12/14) VENOUS CATHETERIZATION NEC (09/29/13) Sepsis Event Note (H) - Evaluation Current Stage of Sepsis: Severe sepsis (patient comfort measures) Possible source of Sepsis: positive: Genitourinary - Sepsis Criteria Sepsis Criteria: Suspected or Documented, WBC count greater than 12,000 or less than 4000, SBP drop more than 40mHg, Metabolic: lactate > 2 mmol/L
[2023-05-04] MEDS ORDERED: SENNA 8.6 MG TABLET PO PRN (10:55)
[2023-05-04] MEDS: amLODIPine 5 MG TABLET PO SCH (11:37)
[2023-05-04] MEDS: AMITRIPTYLINE 25 MG TABLET PO SCH (20:46)
[2023-05-04] MEDS: hydrOXYzine PAMOATE 25 MG CAPSULE PO SCH (20:47)
[2023-05-05 07:29] LABS: BASOPHILS % (AUTO) 0.5 %; EOSINOPHILS % (AUTO) 3.7 %; HGB - HEMOGLOBIN 9.2 g/dL (12.0-16.0); LYMPHOCYTES % (AUTO) 19.2 %; MEAN CORPUSCULAR HEMOGLOBIN 24.9 pg (27.0-31.0); MEAN CORPUSCULAR HGB CONC 31.7 g/dL (32.0-36.0); MEAN CORPUSCULAR VOLUME 78.4 fL (81.0-99.0); MEAN PLATELET VOLUME 11.9 fL (7.9-10.8); MONOCYTES % (AUTO) 12.3 %; NEUTROPHILS % (AUTO) 62.6 %; PLT - PLATELET COUNT 124 10^3/uL (130-450); RED CELL DISTRIBUTION WIDTH 16.3 % (12.0-15.0); WHITE BLOOD COUNT 8.6 x10^3/uL (4.8-10.8)
[2023-05-05 07:40] LABS: CALCIUM 7.9 mg/dL (8.5-10.3); CREATININE 0.7 mg/dL (0.6-1.3); MAGNESIUM 1.5 mg/dL (1.7-2.3); POTASSIUM 3.2 mmol/L (3.5-4.5)
[2023-05-05 07:51] LABS: ABNORMAL LYMPHS % (MANUAL) 0 %
[2023-05-05 08:05] LABS: BAND NEUTROPHILS % (MANUAL) 1 %; EOSINOPHILS # (MANUAL) 0.3 10^3/uL (0-0.7); LYMPHOCYTES # (MANUAL) 1.4 10^3/uL (1.5-3.5); LYMPHOCYTES % (MANUAL) 16 %; MONOCYTES # (MANUAL) 1.2 10^3/uL (0.0-1.0); NEUTROPHILS # (MANUAL) 5.7 10^3/uL (1.5-6.6)
[2023-05-05 08:06] LABS: DIFFERENTIAL COMMENT MANUAL DIFFERENTIAL; PLATELET ESTIMATE, MANUAL DECREASED (<130,000) (NORMAL); PLATELET MORPHOLOGY NORMAL APP (NORMAL); RBC MORPHOLOGY (MULTIPLE) NORMAL APPEARANCE (NORMAL)
[2023-05-05] MEDS: MEROPENEM 1 GM in SODIUM CHLORIDE 0.9% MINIBAG 100 ML IV SCH ×3 (09:06→23:35)
[2023-05-05] MEDS: DULoxetine 30 MG CAPSULE PO SCH (09:07)
[2023-05-05] MEDS: amLODIPine 5 MG TABLET PO SCH (09:07)
[2023-05-05] MEDS: PREGABALIN 100 MG CAPSULE PO SCH ×2 (09:07→21:08)
[2023-05-05] MEDS: risperiDONE 1 MG TABLET PO SCH ×2 (09:07→21:09)
[2023-05-05] MEDS: ASPIRIN EC 81 MG TABLET PO SCH (09:07)
[2023-05-05] MEDS: SACCHAROMYCES BOULARDII 250 MG CAPSULE PO SCH (09:07)
[2023-05-05] MEDS: SODIUM CHLORIDE FLUSH 0.9% 10 ML SYRINGE IVP SCH ×3 (09:08→23:35)
[2023-05-05] MEDS: BUPRENORPHINE 0.3 MG/ML VIAL IM SCH ×2 (09:24→21:09)
[2023-05-05] MEDS: ACETAMINOPHEN 325 MG TABLET PO PRN (10:25)
[2023-05-05 10:42] LABS: ESTIMATED AVERAGE GLUCOSE 120 mg/dL (70-100); HEMOGLOBIN A1c% 5.8 % (4.27-6.07)
[2023-05-05] MEDS: MAGNESIUM OXIDE 400 MG TABLET PO SCH (13:16)
[2023-05-05] MEDS: POTASSIUM CHLORIDE 10 MEQ CAPSULE PO SCH (13:16)
--- NOTE | 2023-05-05 19:40 | PROVIDER PROGRESS NOTE ---
Assessment/Plan - Problem List (1) Bacteremia due to Proteus species Assessment/Plan: Blood culture showing gram-negative bacteremia. Repeat blood cultures ordered. Etiology is believed to be her UTI. Currently on meropenem. Plan: Continue empiric IV antibiotics for her bacteremia. Await repeat bld cx results (2) UTI (urinary tract infection) due to urinary indwelling catheter Assessment/Plan: She presented with sepsis secondary to suprapubic Reyes catheter infection. Reyes catheter was last exchanged on 04/21. Unclear if exchange occurred in the ED but no change was documented. Blood cultures from 05/02 returned positive for gram negative bacteremia. PCR from 05/04 showing enterobacterales. Failed trial of Levofloxacin and metronidazole. We started her on meropenem and repeat blood cultures tomorrow. Plan: She will need 14 total days of antibiotics. Unfortunately treatment will need to be IV for the entirety of duration given her allergies. 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 Dispo will be either return to [facility] or be in Swing bed. (3) T2DM (type 2 diabetes mellitus) Assessment/Plan: Patient is not eating and is having hypoglycemic episodes. Plan: Obtain A1c. Diet consulted. (4) Hx of above knee amputation Assessment/Plan: She has had AKA of left leg and Resides at [facility]. (5) Schizophrenia Qualifiers: Schizophrenia type: unspecified Qualified Code(s): F20.9 - Schizophrenia, unspecified Assessment/Plan: We resumed home psychiatric medications. (6) Sepsis Qualifiers: Sepsis type: sepsis due to unspecified organism Sepsis acute organ dysfunction status: without acute organ dysfunction Qualified Code(s): A41.9 - Sepsis, unspecified organism Assessment/Plan: RESOLVED Continue antibiotics as above. (7) Acute kidney injury Assessment/Plan: RESOLVED Baseline creatinine is under 1. - Current Meds Current Meds: Current Medications Generic Name Dose Route Start Last Admin Trade Name Freq PRN Reason Stop Dose Admin Acetaminophen 650 mg 05/04/23 14:29 05/05/23 10:25 Acetaminophen 325 Mg Tablet PO 650 mg Q6HR PRN Administration Pain or Fever > 38C (100.4F) Amitriptyline HCl 25 mg 05/02/23 21:00 05/04/23 20:46 Amitriptyline 25 Mg Tablet PO 25 mg HS JEAN Administration Amlodipine Besylate 5 mg 05/04/23 11:00 05/05/23 09:07 Amlodipine 5 Mg Tablet PO 5 mg DAILY JEAN Administration Aspirin 81 mg 05/03/23 09:00 05/05/23 09:07 Aspirin Ec 81 Mg Tablet PO 81 mg DAILY JEAN Administration Buprenorphine 0.3 mg 05/02/23 21:00 05/05/23 09:24 Buprenorphine 0.3 Mg/Ml Vial IM Not Given BID JEAN Duloxetine HCl 30 mg 05/03/23 09:00 05/05/23 09:07 Duloxetine 30 Mg Capsule PO 30 mg DAILY JEAN Administration Hydroxyzine Pamoate 25 mg 05/02/23 21:00 05/04/23 20:47 Hydroxyzine Pamoate 25 Mg Capsule PO 25 mg HS JEAN Administration Meropenem 1 gm/ Sodium 100 mls @ 200 mls/hr 05/04/23 08:00 05/05/23 16:46 Chloride IV Infused Q8H JEAN Infusion Magnesium Oxide 400 mg 05/05/23 12:00 05/05/23 13:16 Magnesium Oxide 400 Mg Tablet PO 400 mg DAILYWM JEAN Administration Potassium Chloride 20 meq 05/05/23 12:00 05/05/23 13:16 Potassium Chloride 10 Meq Capsule PO 20 meq DAILYWM JEAN Administration Pregabalin 300 mg 05/02/23 21:00 05/05/23 09:07 Pregabalin 100 Mg Capsule PO 300 mg BID JEAN Administration Risperidone 2 mg 05/02/23 21:00 05/05/23 09:07 Risperidone 1 Mg Tablet PO 2 mg BID JEAN Administration Saccharomyces Boulardii 250 mg 05/03/23 09:00 05/05/23 09:07 Saccharomyces Boulardii 250 Mg Capsule PO 250 mg DAILY JEAN Administration Sodium Chloride 10 ml 05/01/23 01:00 05/05/23 16:16 Sodium Chloride Flush 0.9% 10 Ml Syringe IVP 10 ml 0100,0900,1700 JEAN Administration - Lab Result Fish Bone Diagrams: 05/06/23 05:30 05/07/23 05:14 - Additional Planning My Orders: My Active Orders 05/05/23 12:00 Magnesium Oxide [Mag Ox] 400 mg PO DAILYWM Potassium Chloride [Micro-K] 20 meq PO DAILYWM 05/05/23 Dinner DIET [Dysphagia - Minced and Moist] [DIET] Subjective - Subjective Patient Reports: Resting Comfortably, No Complaints, Other (Answers off topic) Objective Vital Signs: Vital Signs - 24 hr 05/04/23 05/05/23 05/05/23 23:38 08:00 15:37 Temperature 37.1 C 37.2 C 36.4 C L Heart Rate [ 73 69 50 L Brachial] Heart Rate [ Radial] Respiratory 16 18 16 Rate Blood Pressure 162/88 H 143/73 H 130/61 [Right Brachial artery] O2 Saturation 92 93 93 05/05/23 16:00 Temperature Heart Rate [ Brachial] Heart Rate [ 54 L Radial] Respiratory Rate Blood Pressure [Right Brachial artery] O2 Saturation Oxygen O2 Source Room air Oxygen Flow Rate 2 I&O (Last 24 Hrs): Intake and Output Totals x24h 05/03/23 05/04/23 05/05/23 23:59 23:59 23:59 Intake Total 2750 2290 960 Output Total 2600 1210 1300 Balance 150 1080 -340 General: Alert, No acute distress HEENT: Mucous membr. moist/pink Neck: Supple Neuro: Alert, Disoriented Cardiovascular: No murmurs Respiratory: No respiratory distress Abdomen: Soft, Other (Obese) Extremities: Other (Trace edema) - Results Results: Laboratory Results WBC 8.6 x10^3/uL (4.8-10.8) 05/05/23 07:20 RBC 3.70 10^6/uL (4.20-5.40) L 05/05/23 07:20 Hgb 9.2 g/dL (12.0-16.0) L 05/05/23 07:20 Hct 29.0 % (37.0-47.0) L 05/05/23 07:20 MCV 78.4 fL (81.0-99.0) L 05/05/23 07:20 MCH 24.9 pg (27.0-31.0) L 05/05/23 07:20 MCHC 31.7 g/dL (32.0-36.0) L 05/05/23 07:20 RDW 16.3 % (12.0-15.0) H 05/05/23 07:20 Plt Count 124 10^3/uL (130-450) L 05/05/23 07:20 MPV 11.9 fL (7.9-10.8) H 05/05/23 07:20 Neut # (Auto) Not Reportable 05/05/23 07:20 Lymph # (Auto) Not Reportable 05/05/23 07:20 [place] # (Auto) Not Reportable 05/05/23 07:20 Eos # (Auto) Not Reportable 05/05/23 07:20 Baso # (Auto) Not Reportable 05/05/23 07:20 Absolute Nucleated RBC Not Reportable 05/05/23 07:20 Total Counted 100 05/05/23 07:20 Band Neuts % (Manual) 1 % (0-10) 05/05/23 07:20 Abnorm Lymph % (Manual) 0 % 05/05/23 07:20 Nucleated RBC % Not Reportable 05/05/23 07:20 Neutrophils # (Manual) 5.7 10^3/uL (1.5-6.6) 05/05/23 07:20 Lymphocytes # (Manual) 1.4 10^3/uL (1.5-3.5) L 05/05/23 07:20 Monocytes # (Manual) 1.2 10^3/uL (0.0-1.0) H 05/05/23 07:20 Eosinophils # (Manual) 0.3 10^3/uL (0-0.7) 05/05/23 07:20 Basophils # (Manual) 0.0 10^3/uL (0-0.1) 05/05/23 07:20 Differential Comment MANUAL DIFFERENTIAL 05/05/23 07:20 Platelet Estimate DECREASED (<130,000) (NORMAL) 05/05/23 07:20 Platelet Morphology NORMAL EMELIA (NORMAL) 05/05/23 07:20 RBC Morph Micro Appear NORMAL APPEARANCE (NORMAL) 05/05/23 07:20 Sodium 139 mmol/L (135-145) 05/05/23 07:20 Potassium 3.2 mmol/L (3.5-4.5) L 05/05/23 07:20 Chloride 110 mmol/L (101-111) 05/05/23 07:20 Carbon Dioxide 22 mmol/L (21-32) 05/05/23 07:20 Anion Gap 7.0 (6-13) 05/05/23 07:20 BUN 11 mg/dL (6-20) 05/05/23 07:20 Creatinine 0.7 mg/dL (0.6-1.3) 05/05/23 07:20 Estimated GFR (MDRD) 81 (>89) L 05/05/23 07:20 Glucose 113 mg/dL (74-104) H 05/05/23 07:20 Estimat Average Glucose 120 mg/dL (70-100) H 05/05/23 07:20 Hemoglobin A1c % 5.8 % (4.27-6.07) 05/05/23 07:20 Lactic Acid 1.0 mmol/L (0.5-2.2) 05/01/23 16:23 Calcium 7.9 mg/dL (8.5-10.3) L 05/05/23 07:20 Magnesium 1.5 mg/dL (1.7-2.3) L 05/05/23 07:20 Total Bilirubin 0.4 mg/dL (0.2-1.0) 04/30/23 18:52 AST 29 IU/L (10-42) 04/30/23 18:52 ALT 14 IU/L (10-60) 04/30/23 18:52 Alkaline Phosphatase 62 IU/L (42-121) 04/30/23 18:52 Total Protein 6.5 g/dL (6.4-8.9) 04/30/23 18:52 Albumin 2.9 g/dL (3.2-5.5) L 04/30/23 18:52 Globulin 3.6 g/dL (2.1-4.2) 04/30/23 18:52 Albumin/Globulin Ratio 0.8 (1.0-2.2) L 04/30/23 18:52 Lipase 18 U/L (11-82) 04/30/23 18:52 Urine Color YELLOW 04/30/23 19:34 Urine Clarity CLOUDY (CLEAR) 04/30/23 19:34 Urine pH >=9.0 PH (5.0-7.5) H 04/30/23 19:34 Ur Specific [place] <=1.005 (1.002-1.030) 04/30/23 19:34 Urine Protein 100 mg/dL (NEGATIVE) H 04/30/23 19:34 Urine Glucose (UA) NEGATIVE mg/dL (NEGATIVE) 04/30/23 19:34 Urine Ketones NEGATIVE mg/dL (NEGATIVE) 04/30/23 19:34 Urine Occult Blood NEGATIVE (NEGATIVE) 04/30/23 19:34 Urine Nitrite NEGATIVE (NEGATIVE) 04/30/23 19:34 Urine Bilirubin NEGATIVE (NEGATIVE) 04/30/23 19:34 Urine Urobilinogen 0.2 (NORMAL) E.U./dL (NORMAL) 04/30/23 19:34 Ur Leukocyte Esterase MODERATE (NEGATIVE) H 04/30/23 19:34 Urine RBC 0-5 /HPF (0-5) 04/30/23 19:34 Urine WBC 11-25 /HPF (0-5) H 04/30/23 19:34 Ur Squamous Epith Cells FEW Squamous (<= Few) 04/30/23 19:34 Amorphous Sediment Few /LPF 04/30/23 19:34 Urine Bacteria Moderate /HPF (None Seen) H 04/30/23 19:34 Ur Microscopic Review INDICATED 04/30/23 19:34 Urine Culture Comments INDICATED 04/30/23 19:34 Nasal Adenovirus (PCR) NOT DETECTED 04/30/23 18:14 Nasal B. parapertussis DNA (PCR) NOT DETECTED 04/30/23 18:14 Nasal Coronavir 229E PCR NOT DETECTED 04/30/23 18:14 Nasal Coronavir HKU1 PCR NOT DETECTED 04/30/23 18:14 Nasal Coronavir NL63 PCR NOT DETECTED 04/30/23 18:14 Nasal Coronavir OC43 PCR NOT DETECTED 04/30/23 18:14 Nasal Enterovir/Rhinovir PCR NOT DETECTED 04/30/23 18:14 Nasal Influenza B PCR NOT DETECTED 04/30/23 18:14 Nasal Influenza A PCR NOT DETECTED 04/30/23 18:14 Nasal Parainfluen 1 PCR NOT DETECTED 04/30/23 18:14 Nasal Parainfluen 2 PCR NOT DETECTED 04/30/23 18:14 Nasal Parainfluen 3 PCR NOT DETECTED 04/30/23 18:14 Nasal Parainfluen 4 PCR NOT DETECTED 04/30/23 18:14 Nasal RSV (PCR) NOT DETECTED 04/30/23 18:14 Nasal B.pertussis DNA PCR NOT DETECTED 04/30/23 18:14 Nasal C.pneumoniae (PCR) NOT DETECTED 04/30/23 18:14 Nathan Human Metapneumo PCR NOT DETECTED 04/30/23 18:14 Nasal M.pneumoniae (PCR) NOT DETECTED 04/30/23 18:14 Nasal SARS-CoV-2 (PCR) NOT DETECTED 04/30/23 18:14 - Procedures Procedures: Procedures CONTINUOUS INVASIVE MECHANICAL VENTILATION <96 CONSEC HRS (09/29/13) INSERT ENDOTRACHEAL TUBE (09/29/13) INSERT GASTRIC TUBE NEC (09/29/13) INSERTION OF INFUSION DEV INTO SUP VENA CAVA, PERC APPROACH (02/14/17) REPLACE CYSTOSTOMY TUBE (06/12/14) RETROGRADE PYELOGRAM (06/12/14) TU BLADDER CLEARANCE (06/12/14) VENOUS CATHETERIZATION NEC (09/29/13) Sepsis Event Note (H) - Evaluation Current Stage of Sepsis: Severe sepsis (patient comfort measures) Possible source of Sepsis: positive: Genitourinary - Sepsis Criteria Sepsis Criteria: Suspected or Documented, WBC count greater than 12,000 or less than 4000, SBP drop more than 40mHg, Metabolic: lactate > 2 mmol/L
[2023-05-05] MEDS: hydrOXYzine PAMOATE 25 MG CAPSULE PO SCH (21:09)
[2023-05-05] MEDS: AMITRIPTYLINE 25 MG TABLET PO SCH (21:09)
[2023-05-06 05:52] LABS: BASOPHILS % (AUTO) 0.5 %; EOSINOPHILS % (AUTO) 3.4 %; HGB - HEMOGLOBIN 10.7 g/dL (12.0-16.0); LYMPHOCYTES % (AUTO) 19.7 %; MEAN CORPUSCULAR HEMOGLOBIN 24.9 pg (27.0-31.0); MEAN CORPUSCULAR HGB CONC 31.5 g/dL (32.0-36.0); MEAN CORPUSCULAR VOLUME 79.3 fL (81.0-99.0); MEAN PLATELET VOLUME 13.1 fL (7.9-10.8); NEUTROPHILS % (AUTO) 62.6 %; PLT - PLATELET COUNT 146 10^3/uL (130-450); RED BLOOD COUNT 4.29 10^6/uL (4.20-5.40); RED CELL DISTRIBUTION WIDTH 16.5 % (12.0-15.0); WHITE BLOOD COUNT 9.1 x10^3/uL (4.8-10.8)
[2023-05-06 06:07] LABS: CALCIUM 8.1 mg/dL (8.5-10.3); CREATININE 0.6 mg/dL (0.6-1.3); MAGNESIUM 1.6 mg/dL (1.7-2.3); POTASSIUM 3.1 mmol/L (3.5-4.5)
[2023-05-06 06:55] LABS: ABNORMAL LYMPHS % (MANUAL) 0 %
[2023-05-06 06:59] LABS: BAND NEUTROPHILS % (MANUAL) 1 %; DIFFERENTIAL COMMENT MANUAL DIFFERENTIAL; EOSINOPHILS # (MANUAL) 0.1 10^3/uL (0-0.7); LYMPHOCYTES % (MANUAL) 22 %; MONOCYTES # (MANUAL) 0.8 10^3/uL (0.0-1.0); NEUTROPHILS # (MANUAL) 6.2 10^3/uL (1.5-6.6); PLATELET ESTIMATE, MANUAL NORMAL (130-450,000) (NORMAL); RBC MORPHOLOGY (MULTIPLE) NORMAL APPEARANCE (NORMAL)
[2023-05-06] MEDS: PREGABALIN 100 MG CAPSULE PO SCH ×2 (08:28→21:01)
[2023-05-06] MEDS: DULoxetine 30 MG CAPSULE PO SCH (08:28)
[2023-05-06] MEDS: POTASSIUM CHLORIDE 10 MEQ CAPSULE PO SCH (08:28)
[2023-05-06] MEDS: SACCHAROMYCES BOULARDII 250 MG CAPSULE PO SCH (08:28)
[2023-05-06] MEDS: risperiDONE 1 MG TABLET PO SCH ×2 (08:28→21:01)
[2023-05-06] MEDS: amLODIPine 5 MG TABLET PO SCH (08:29)
[2023-05-06] MEDS: ASPIRIN EC 81 MG TABLET PO SCH (08:29)
[2023-05-06] MEDS: MAGNESIUM OXIDE 400 MG TABLET PO SCH (08:29)
[2023-05-06] MEDS: BUPRENORPHINE 0.3 MG/ML VIAL IM SCH ×2 (08:29→21:01)
[2023-05-06] MEDS: MEROPENEM 1 GM in SODIUM CHLORIDE 0.9% MINIBAG 100 ML IV SCH ×2 (08:29→15:58)
[2023-05-06] MEDS: SODIUM CHLORIDE FLUSH 0.9% 10 ML SYRINGE IVP SCH ×2 (08:30→15:58)
--- NOTE | 2023-05-06 15:08 | PROVIDER PROGRESS NOTE ---
Assessment/Plan - Problem List (1) Bacteremia due to Proteus species Assessment/Plan: Etiology is believed to be her UTI. Blood culture grew Proteus. Repeat blood culture fro 05/04 is still growing something. The blood cx from 05/05 yesterday is neg to date Plan: Currently on meropenem. Continue IV antibiotics for her bacteremia. Will change to oral antibx, depending n sens, and her allegies, once we know that the 05/05 blood cx is neg on this antibx. If on oral,she may not need a PICC line for iv antibx A 14 day total course is planned (2) UTI (urinary tract infection) due to urinary indwelling catheter Assessment/Plan: She presented with sepsis secondary to suprapubic Reyes catheter infection. Reyes catheter was last exchanged on 04/21. Unclear if exchange occurred in the ED but no change was documented. Blood cultures from 05/02 returned positive for gram negative bacteremia. PCR from 05/04 showing enterobacterales. Failed trial of Levofloxacin and metronidazole. Wec hanged her to iv meropenem and repeat blood cultures were then done 05/05 Plan: She will need 14 total days of antibiotics. Unfortunately she may need to be IV for the entirety of duration given her allergies. She will likely need a PICC line when her cultures return negative for terminal superintendent IV antibiotics. Dispo will be either return to [facility] or Swing bed here. (3) T2DM (type 2 diabetes mellitus) Assessment/Plan: She has a poor appetite, however eats when fed, per DERMATOLOGY PHYSICIAN ASSISTANT Plan: Cont DM meds Diet consult to help nutrition (4) Hypokalemia K is 3.1 today, despite starting po KCl 20 mEq yesterday Plan: Will give K iv riders and po K Follow BMP daily (5) Above knee amputation of left lower extremity Assessment/Plan: Resides at [facility]. (6) Schizophrenia Qualifiers: Schizophrenia type: unspecified Qualified Code(s): F20.9 - Schizophrenia, unspecified Assessment/Plan: Resumed home psychiatric medications. (7) Sepsis Qualifiers: Sepsis type: sepsis due to unspecified organism Sepsis acute organ dysfunction status: without acute organ dysfunction Qualified Code(s): A41.9 - Sepsis, unspecified organism Assessment/Plan: RESOLVED Plan: Continue antibiotics as above. (8) Acute kidney injury Assessment/Plan: RESOLVED Baseline creatinine is under 1. - Current Meds Current Meds: Current Medications Generic Name Dose Route Start Last Admin Trade Name Darci PRN Reason Stop Dose Admin Acetaminophen 650 mg 05/04/23 14:29 05/05/23 10:25 Acetaminophen 325 Mg Tablet PO 650 mg Q6HR PRN Administration Pain or Fever > 38C (100.4F) Amitriptyline HCl 25 mg 05/02/23 21:00 05/05/23 21:09 Amitriptyline 25 Mg Tablet PO 25 mg HS JEAN Administration Amlodipine Besylate 5 mg 05/04/23 11:00 05/06/23 08:29 Amlodipine 5 Mg Tablet PO 5 mg DAILY JEAN Administration Aspirin 81 mg 05/03/23 09:00 05/06/23 08:29 Aspirin Ec 81 Mg Tablet PO 81 mg DAILY JEAN Administration Buprenorphine 0.3 mg 05/02/23 21:00 05/06/23 08:29 Buprenorphine 0.3 Mg/Ml Vial IM 0.3 mg BID JEAN Administration Duloxetine HCl 30 mg 05/03/23 09:00 05/06/23 08:28 Duloxetine 30 Mg Capsule PO 30 mg DAILY JEAN Administration Hydroxyzine Pamoate 25 mg 05/02/23 21:00 05/05/23 21:09 Hydroxyzine Pamoate 25 Mg Capsule PO 25 mg HS JEAN Administration Meropenem 1 gm/ Sodium 100 mls @ 200 mls/hr 05/04/23 08:00 05/06/23 09:00 Chloride IV Infused Q8H JEAN Infusion Magnesium Oxide 400 mg 05/05/23 12:00 05/06/23 08:29 Magnesium Oxide 400 Mg Tablet PO 400 mg DAILYWM JEAN Administration Potassium Chloride 20 meq 05/05/23 12:00 05/06/23 08:28 Potassium Chloride 10 Meq Capsule PO 20 meq DAILYWM JEAN Administration Pregabalin 300 mg 05/02/23 21:00 05/06/23 08:28 Pregabalin 100 Mg Capsule PO 300 mg BID JEAN Administration Risperidone 2 mg 05/02/23 21:00 05/06/23 08:28 Risperidone 1 Mg Tablet PO 2 mg BID JEAN Administration Saccharomyces Boulardii 250 mg 05/03/23 09:00 05/06/23 08:28 Saccharomyces Boulardii 250 Mg Capsule PO 250 mg DAILY JEAN Administration Sodium Chloride 10 ml 05/01/23 01:00 05/06/23 08:30 Sodium Chloride Flush 0.9% 10 Ml Syringe IVP 10 ml 0100,0900,1700 [facility] Administration - Lab Result Fish Bone Diagrams: 05/06/23 05:30 05/07/23 05:14 - Additional Planning My Orders: My Active Orders 05/05/23 Dinner DIET [Dysphagia - Minced and Moist] [DIET] Subjective - Subjective Patient Reports: Resting Comfortably, Other (Answers off topic. Says she has no appetite) Objective Vital Signs: Vital Signs - 24 hr 05/05/23 05/05/23 05/05/23 15:37 16:00 23:30 Temperature 36.4 C L 36.7 C Heart Rate [ 50 L 60 Brachial] Heart Rate [ 54 L Radial] Respiratory 16 20 Rate Blood Pressure 130/61 149/72 H [Right Brachial artery] O2 Saturation 93 92 05/06/23 08:00 Temperature 36.4 C L Heart Rate [ 61 Brachial] Heart Rate [ Radial] Respiratory 18 Rate Blood Pressure 162/85 H [Right Brachial artery] O2 Saturation 92 Oxygen O2 Source Room air Oxygen Flow Rate 2 I&O (Last 24 Hrs): Intake and Output Totals x24h 05/04/23 05/05/23 05/06/23 23:59 23:59 23:59 Intake Total 2290 1860 670 Output Total 1210 2200 775 Balance 3447 -340 -105 General: No acute distress HEENT: Mucous membr. moist/pink Neck: Supple Neuro: Alert, Disoriented Cardiovascular: No murmurs Respiratory: No respiratory distress Abdomen: Soft, Other (Obese) Extremities: Other (Trace pretibial edema) - Results Results: Laboratory Results WBC 9.1 x10^3/uL (4.8-10.8) 05/06/23 05:30 RBC 4.29 10^6/uL (4.20-5.40) 05/06/23 05:30 Hgb 10.7 g/dL (12.0-16.0) L 05/06/23 05:30 Hct 34.0 % (37.0-47.0) L 05/06/23 05:30 MCV 79.3 fL (81.0-99.0) L 05/06/23 05:30 MCH 24.9 pg (27.0-31.0) L 05/06/23 05:30 MCHC 31.5 g/dL (32.0-36.0) L 05/06/23 05:30 RDW 16.5 % (12.0-15.0) H 05/06/23 05:30 Plt Count 146 10^3/uL (130-450) 05/06/23 05:30 MPV 13.1 fL (7.9-10.8) H 05/06/23 05:30 Neut # (Auto) Not Reportable 05/06/23 05:30 Lymph # (Auto) Not Reportable 05/06/23 05:30 [place] # (Auto) Not Reportable 05/06/23 05:30 Eos # (Auto) Not Reportable 05/06/23 05:30 Baso # (Auto) Not Reportable 05/06/23 05:30 Absolute Nucleated RBC Not Reportable 05/06/23 05:30 Total Counted 100 05/06/23 05:30 Band Neuts % (Manual) 1 % (0-10) 05/06/23 05:30 Abnorm Lymph % (Manual) 0 % 05/06/23 05:30 Nucleated RBC % Not Reportable 05/06/23 05:30 Neutrophils # (Manual) 6.2 10^3/uL (1.5-6.6) 05/06/23 05:30 Lymphocytes # (Manual) 2.0 10^3/uL (1.5-3.5) 05/06/23 05:30 Monocytes # (Manual) 0.8 10^3/uL (0.0-1.0) 05/06/23 05:30 Eosinophils # (Manual) 0.1 10^3/uL (0-0.7) 05/06/23 05:30 Basophils # (Manual) 0.0 10^3/uL (0-0.1) 05/06/23 05:30 Differential Comment MANUAL DIFFERENTIAL 05/06/23 05:30 Platelet Estimate NORMAL (130-450,000) (NORMAL) 05/06/23 05:30 Platelet Morphology NORMAL EMELIA (NORMAL) 05/05/23 07:20 RBC Morph Micro Appear NORMAL APPEARANCE (NORMAL) 05/06/23 05:30 Sodium 138 mmol/L (135-145) 05/06/23 05:30 Potassium 3.1 mmol/L (3.5-4.5) L 05/06/23 05:30 Chloride 105 mmol/L (101-111) 05/06/23 05:30 Carbon Dioxide 26 mmol/L (21-32) 05/06/23 05:30 Anion Gap 7.0 (6-13) 05/06/23 05:30 BUN 6 mg/dL (6-20) 05/06/23 05:30 Creatinine 0.6 mg/dL (0.6-1.3) 05/06/23 05:30 Estimated GFR (MDRD) 96 (>89) 05/06/23 05:30 Glucose 102 mg/dL (74-104) 05/06/23 05:30 Estimat Average Glucose 120 mg/dL (70-100) H 05/05/23 07:20 Hemoglobin A1c % 5.8 % (4.27-6.07) 05/05/23 07:20 Lactic Acid 1.0 mmol/L (0.5-2.2) 05/01/23 16:23 Calcium 8.1 mg/dL (8.5-10.3) L 05/06/23 05:30 Magnesium 1.6 mg/dL (1.7-2.3) L 05/06/23 05:30 Total Bilirubin 0.4 mg/dL (0.2-1.0) 04/30/23 18:52 AST 29 IU/L (10-42) 04/30/23 18:52 ALT 14 IU/L (10-60) 04/30/23 18:52 Alkaline Phosphatase 62 IU/L (42-121) 04/30/23 18:52 Total Protein 6.5 g/dL (6.4-8.9) 04/30/23 18:52 Albumin 2.9 g/dL (3.2-5.5) L 04/30/23 18:52 Globulin 3.6 g/dL (2.1-4.2) 04/30/23 18:52 Albumin/Globulin Ratio 0.8 (1.0-2.2) L 04/30/23 18:52 Lipase 18 U/L (11-82) 04/30/23 18:52 Urine Color YELLOW 04/30/23 19:34 Urine Clarity CLOUDY (CLEAR) 04/30/23 19:34 Urine pH >=9.0 PH (5.0-7.5) H 04/30/23 19:34 Ur Specific [place] <=1.005 (1.002-1.030) 04/30/23 19:34 Urine Protein 100 mg/dL (NEGATIVE) H 04/30/23 19:34 Urine Glucose (UA) NEGATIVE mg/dL (NEGATIVE) 04/30/23 19:34 Urine Ketones NEGATIVE mg/dL (NEGATIVE) 04/30/23 19:34 Urine Occult Blood NEGATIVE (NEGATIVE) 04/30/23 19:34 Urine Nitrite NEGATIVE (NEGATIVE) 04/30/23 19:34 Urine Bilirubin NEGATIVE (NEGATIVE) 04/30/23 19:34 Urine Urobilinogen 0.2 (NORMAL) E.U./dL (NORMAL) 04/30/23 19:34 Ur Leukocyte Esterase MODERATE (NEGATIVE) H 04/30/23 19:34 Urine RBC 0-5 /HPF (0-5) 04/30/23 19:34 Urine WBC 11-25 /HPF (0-5) H 04/30/23 19:34 Ur Squamous Epith Cells FEW Squamous (<= Few) 04/30/23 19:34 Amorphous Sediment Few /LPF 04/30/23 19:34 Urine Bacteria Moderate /HPF (None Seen) H 04/30/23 19:34 Ur Microscopic Review INDICATED 04/30/23 19:34 Urine Culture Comments INDICATED 04/30/23 19:34 Nasal Adenovirus (PCR) NOT DETECTED 04/30/23 18:14 Nasal B. parapertussis DNA (PCR) NOT DETECTED 04/30/23 18:14 Nasal Coronavir 229E PCR NOT DETECTED 04/30/23 18:14 Nasal Coronavir HKU1 PCR NOT DETECTED 04/30/23 18:14 Nasal Coronavir NL63 PCR NOT DETECTED 04/30/23 18:14 Nasal Coronavir OC43 PCR NOT DETECTED 04/30/23 18:14 Nasal Enterovir/Rhinovir PCR NOT DETECTED 04/30/23 18:14 Nasal Influenza B PCR NOT DETECTED 04/30/23 18:14 Nasal Influenza A PCR NOT DETECTED 04/30/23 18:14 Nasal Parainfluen 1 PCR NOT DETECTED 04/30/23 18:14 Nasal Parainfluen 2 PCR NOT DETECTED 04/30/23 18:14 Nasal Parainfluen 3 PCR NOT DETECTED 04/30/23 18:14 Nasal Parainfluen 4 PCR NOT DETECTED 04/30/23 18:14 Nasal RSV (PCR) NOT DETECTED 04/30/23 18:14 Nasal B.pertussis DNA PCR NOT DETECTED 04/30/23 18:14 Nasal C.pneumoniae (PCR) NOT DETECTED 04/30/23 18:14 Nathan Human Metapneumo PCR NOT DETECTED 04/30/23 18:14 Nasal M.pneumoniae (PCR) NOT DETECTED 04/30/23 18:14 Nasal SARS-CoV-2 (PCR) NOT DETECTED 04/30/23 18:14 - Procedures Procedures: Procedures CONTINUOUS INVASIVE MECHANICAL VENTILATION <96 CONSEC HRS (09/29/13) INSERT ENDOTRACHEAL TUBE (09/29/13) INSERT GASTRIC TUBE NEC (09/29/13) INSERTION OF INFUSION DEV INTO SUP VENA CAVA, PERC APPROACH (02/14/17) REPLACE CYSTOSTOMY TUBE (06/12/14) RETROGRADE PYELOGRAM (06/12/14) TU BLADDER CLEARANCE (06/12/14) VENOUS CATHETERIZATION NEC (09/29/13) Sepsis Event Note (H) - Evaluation Current Stage of Sepsis: Severe sepsis (patient comfort measures) Possible source of Sepsis: positive: Genitourinary - Sepsis Criteria Sepsis Criteria: Suspected or Documented, WBC count greater than 12,000 or less than 4000, SBP drop more than 40mHg, Metabolic: lactate > 2 mmol/L
[2023-05-06] MEDS: POTASSIUM CHLOR 10 MEQ/100 ML 10 MEQ/100 ML BAG IV SCH ×3 (16:47→19:36)
[2023-05-06] MEDS: AMITRIPTYLINE 25 MG TABLET PO SCH (21:00)
[2023-05-06] MEDS: hydrOXYzine PAMOATE 25 MG CAPSULE PO SCH (21:01)
[2023-05-07] MEDS: SODIUM CHLORIDE FLUSH 0.9% 10 ML SYRINGE IVP SCH ×3 (00:14→15:53)
[2023-05-07] MEDS: MEROPENEM 1 GM in SODIUM CHLORIDE 0.9% MINIBAG 100 ML IV SCH ×4 (00:14→23:32)
[2023-05-07 06:03] LABS: CREATININE 0.6 mg/dL (0.6-1.3); MAGNESIUM 1.7 mg/dL (1.7-2.3); POTASSIUM 3.9 mmol/L (3.5-4.5)
[2023-05-07] MEDS: risperiDONE 1 MG TABLET PO SCH ×2 (08:57→20:49)
[2023-05-07] MEDS: amLODIPine 5 MG TABLET PO SCH (08:57)
[2023-05-07] MEDS: POTASSIUM CHLORIDE 10 MEQ CAPSULE PO SCH (08:57)
[2023-05-07] MEDS: DULoxetine 30 MG CAPSULE PO SCH (08:57)
[2023-05-07] MEDS: PREGABALIN 100 MG CAPSULE PO SCH ×2 (08:57→20:49)
[2023-05-07] MEDS: MAGNESIUM OXIDE 400 MG TABLET PO SCH (08:57)
[2023-05-07] MEDS: ASPIRIN EC 81 MG TABLET PO SCH (08:57)
[2023-05-07] MEDS: SACCHAROMYCES BOULARDII 250 MG CAPSULE PO SCH (08:57)
[2023-05-07] MEDS: BUPRENORPHINE 0.3 MG/ML VIAL IM SCH ×2 (08:58→20:48)
[2023-05-07] MEDS: MULTIVITAMIN W/MINERALS TABLET PO SCH (10:51)
--- NOTE | 2023-05-07 16:16 | PROVIDER PROGRESS NOTE ---
Assessment/Plan - Problem List (1) Bacteremia due to Proteus species Assessment/Plan: Etiology is her UTI. Blood culture grew Proteus and Providentia. Repeat blood culture fro 05/04 still grew a Providentia. The blood cx from 05/05 is neg to date, but not finalized yet Plan: Currently on meropenem. Continue IV antibiotics for her bacteremia. Await final bld cx result of the 05/05 culture Will change to oral antibx, depending on sens, and depending on her allegies, once we know that the 05/05 blood cx is neg on Meropenam. If on oral, she may not need a PICC line for iv antibx A 14 day total course is planned (2) UTI (urinary tract infection) due to urinary indwelling catheter Assessment/Plan: She presented with sepsis secondary to suprapubic Reyes catheter infection. Her urine cx grew Providentia Blood cultures from 05/02 returned positive for Proteus and Providentia. Bacteria growth from 05/04 bld cx showed still growing Providentia. Failed trial of Levofloxacin and metronidazole. We changed her to iv meropenem and repeat blood cultures were then done 05/05. The blood cx from 05/05 is neg to date, but not finalized yet Plan: Await final bld cx result of the 05/05 cultures She will need 14 total days of antibiotics. Unfortunately she may need to be IV for the entirety of duration given her allergies. She will likely need a PICC line when her cultures return negative for longterm IV antibiotics. Dispo will be either return to [facility] or Swing bed here. (3) T2DM (type 2 diabetes mellitus) Assessment/Plan: She has a poor appetite, however eats well when fed, per GAS PUMPING STATION HELPER Plan: Cont DM meds Diet consult to help nutrition (4) Hypokalemia RESOLVED with replacement po and iv Plan: Follow BMP daily (5) Above knee amputation of left lower extremity Assessment/Plan: Resides at [facility]. She is bedbound, no PT ordered (6) Schizophrenia Qualifiers: Schizophrenia type: unspecified Qualified Code(s): F20.9 - Schizophrenia, unspecified Assessment/Plan: Resumed home psychiatric medications. (7) Sepsis Qualifiers: Sepsis type: sepsis due to unspecified organism Sepsis acute organ dysfunction status: without acute organ dysfunction Qualified Code(s): A41.9 - Sepsis, unspecified organism Assessment/Plan: RESOLVED Plan: Continue antibiotics as above. (8) Acute kidney injury Assessment/Plan: RESOLVED Baseline creatinine is under 1. - Current Meds Current Meds: Current Medications Generic Name Dose Route Start Last Admin Trade Name Freq PRN Reason Stop Dose Admin Acetaminophen 650 mg 05/04/23 14:29 05/05/23 10:25 Acetaminophen 325 Mg Tablet PO 650 mg Q6HR PRN Administration Pain or Fever > 38C (100.4F) Amitriptyline HCl 25 mg 05/02/23 21:00 05/06/23 21:00 Amitriptyline 25 Mg Tablet PO 25 mg HS JEAN Administration Amlodipine Besylate 5 mg 05/04/23 11:00 05/07/23 08:57 Amlodipine 5 Mg Tablet PO 5 mg DAILY JEAN Administration Aspirin 81 mg 05/03/23 09:00 05/07/23 08:57 Aspirin Ec 81 Mg Tablet PO 81 mg DAILY JEAN Administration Buprenorphine 0.3 mg 05/02/23 21:00 05/07/23 08:58 Buprenorphine 0.3 Mg/Ml Vial IM 0.3 mg BID JEAN Administration Duloxetine HCl 30 mg 05/03/23 09:00 05/07/23 08:57 Duloxetine 30 Mg Capsule PO 30 mg DAILY JEAN Administration Hydroxyzine Pamoate 25 mg 05/02/23 21:00 05/06/23 21:01 Hydroxyzine Pamoate 25 Mg Capsule PO 25 mg HS JEAN Administration Meropenem 1 gm/ Sodium 100 mls @ 200 mls/hr 05/04/23 08:00 05/07/23 15:53 Chloride IV 200 mls/hr Q8H JEAN Administration Magnesium Oxide 400 mg 05/05/23 12:00 05/07/23 08:57 Magnesium Oxide 400 Mg Tablet PO 400 mg DAILYWM JEAN Administration Multivitamins/Minerals 1 tab 05/07/23 10:00 05/07/23 10:51 Multivitamin W/Minerals Tablet PO 1 tab DAILYWM JEAN Administration Potassium Chloride 20 meq 05/05/23 12:00 05/07/23 08:57 Potassium Chloride 10 Meq Capsule PO 20 meq DAILYWM JEAN Administration Pregabalin 300 mg 05/02/23 21:00 05/07/23 08:57 Pregabalin 100 Mg Capsule PO 300 mg BID JEAN Administration Risperidone 2 mg 05/02/23 21:00 05/07/23 08:57 Risperidone 1 Mg Tablet PO 2 mg BID JEAN Administration Saccharomyces Boulardii 250 mg 05/03/23 09:00 05/07/23 08:57 Saccharomyces Boulardii 250 Mg Capsule PO 250 mg DAILY JEAN Administration Sodium Chloride 10 ml 05/01/23 01:00 05/07/23 15:53 Sodium Chloride Flush 0.9% 10 Ml Syringe IVP 10 ml 0100,0900,1700 JEAN Administration - Lab Result Fish Bone Diagrams: 05/06/23 05:30 05/07/23 05:14 - Additional Planning My Orders: My Active Orders 05/07/23 10:00 Multivitamin W/Minerals [Theragran M] 1 tab PO DAILYWM Subjective - Subjective Patient Reports: Resting Comfortably Objective Vital Signs: Vital Signs - 24 hr 05/07/23 05/07/23 05/07/23 00:00 07:51 08:50 Temperature 36.6 C 36.5 C Heart Rate [ 55 L 57 L 70 Brachial] Respiratory 18 18 Rate Blood Pressure 127/64 136/67 H [Right Brachial artery] O2 Saturation 93 92 Oxygen O2 Source Room air Oxygen Flow Rate 2 I&O (Last 24 Hrs): Intake and Output Totals x24h 05/05/23 05/06/23 05/07/23 23:59 23:59 23:59 Intake Total 1860 1940 1160 Output Total 2200 1475 1800 Balance -340 465 -640 General: Other (Lethargic, sleeps most of day) HEENT: Mucous membr. moist/pink Neuro: Non Focal, Other (Lethargic) Cardiovascular: No murmurs Respiratory: No respiratory distress Abdomen: Soft, Other (Obese) Extremities: Other (Trace pretibial edema) - Results Results: Laboratory Results WBC 9.1 x10^3/uL (4.8-10.8) 05/06/23 05:30 RBC 4.29 10^6/uL (4.20-5.40) 05/06/23 05:30 Hgb 10.7 g/dL (12.0-16.0) L 05/06/23 05:30 Hct 34.0 % (37.0-47.0) L 05/06/23 05:30 MCV 79.3 fL (81.0-99.0) L 05/06/23 05:30 MCH 24.9 pg (27.0-31.0) L 05/06/23 05:30 MCHC 31.5 g/dL (32.0-36.0) L 05/06/23 05:30 RDW 16.5 % (12.0-15.0) H 05/06/23 05:30 Plt Count 146 10^3/uL (130-450) 05/06/23 05:30 MPV 13.1 fL (7.9-10.8) H 05/06/23 05:30 Neut # (Auto) Not Reportable 05/06/23 05:30 Lymph # (Auto) Not Reportable 05/06/23 05:30 [place] # (Auto) Not Reportable 05/06/23 05:30 Eos # (Auto) Not Reportable 05/06/23 05:30 Baso # (Auto) Not Reportable 05/06/23 05:30 Absolute Nucleated RBC Not Reportable 05/06/23 05:30 Total Counted 100 05/06/23 05:30 Band Neuts % (Manual) 1 % (0-10) 05/06/23 05:30 Abnorm Lymph % (Manual) 0 % 05/06/23 05:30 Nucleated RBC % Not Reportable 05/06/23 05:30 Neutrophils # (Manual) 6.2 10^3/uL (1.5-6.6) 05/06/23 05:30 Lymphocytes # (Manual) 2.0 10^3/uL (1.5-3.5) 05/06/23 05:30 Monocytes # (Manual) 0.8 10^3/uL (0.0-1.0) 05/06/23 05:30 Eosinophils # (Manual) 0.1 10^3/uL (0-0.7) 05/06/23 05:30 Basophils # (Manual) 0.0 10^3/uL (0-0.1) 05/06/23 05:30 Differential Comment MANUAL DIFFERENTIAL 05/06/23 05:30 Platelet Estimate NORMAL (130-450,000) (NORMAL) 05/06/23 05:30 Platelet Morphology NORMAL EMELIA (NORMAL) 05/05/23 07:20 RBC Morph Micro Appear NORMAL APPEARANCE (NORMAL) 05/06/23 05:30 Sodium 140 mmol/L (135-145) 05/07/23 05:14 Potassium 3.9 mmol/L (3.5-4.5) 05/07/23 05:14 Chloride 107 mmol/L (101-111) 05/07/23 05:14 Carbon Dioxide 29 mmol/L (21-32) 05/07/23 05:14 Anion Gap 4.0 (6-13) L 05/07/23 05:14 BUN 5 mg/dL (6-20) L 05/07/23 05:14 Creatinine 0.6 mg/dL (0.6-1.3) 05/07/23 05:14 Estimated GFR (MDRD) 96 (>89) 05/07/23 05:14 Glucose 101 mg/dL (74-104) 05/07/23 05:14 Estimat Average Glucose 120 mg/dL (70-100) H 05/05/23 07:20 Hemoglobin A1c % 5.8 % (4.27-6.07) 05/05/23 07:20 Lactic Acid 1.0 mmol/L (0.5-2.2) 05/01/23 16:23 Calcium 8.0 mg/dL (8.5-10.3) L 05/07/23 05:14 Magnesium 1.7 mg/dL (1.7-2.3) 05/07/23 05:14 Total Bilirubin 0.4 mg/dL (0.2-1.0) 04/30/23 18:52 AST 29 IU/L (10-42) 04/30/23 18:52 ALT 14 IU/L (10-60) 04/30/23 18:52 Alkaline Phosphatase 62 IU/L (42-121) 04/30/23 18:52 Total Protein 6.5 g/dL (6.4-8.9) 04/30/23 18:52 Albumin 2.9 g/dL (3.2-5.5) L 04/30/23 18:52 Globulin 3.6 g/dL (2.1-4.2) 04/30/23 18:52 Albumin/Globulin Ratio 0.8 (1.0-2.2) L 04/30/23 18:52 Lipase 18 U/L (11-82) 04/30/23 18:52 Urine Color YELLOW 04/30/23 19:34 Urine Clarity CLOUDY (CLEAR) 04/30/23 19:34 Urine pH >=9.0 PH (5.0-7.5) H 04/30/23 19:34 Ur Specific [place] <=1.005 (1.002-1.030) 04/30/23 19:34 Urine Protein 100 mg/dL (NEGATIVE) H 04/30/23 19:34 Urine Glucose (UA) NEGATIVE mg/dL (NEGATIVE) 04/30/23 19:34 Urine Ketones NEGATIVE mg/dL (NEGATIVE) 04/30/23 19:34 Urine Occult Blood NEGATIVE (NEGATIVE) 04/30/23 19:34 Urine Nitrite NEGATIVE (NEGATIVE) 04/30/23 19:34 Urine Bilirubin NEGATIVE (NEGATIVE) 04/30/23 19:34 Urine Urobilinogen 0.2 (NORMAL) E.U./dL (NORMAL) 04/30/23 19:34 Ur Leukocyte Esterase MODERATE (NEGATIVE) H 04/30/23 19:34 Urine RBC 0-5 /HPF (0-5) 04/30/23 19:34 Urine WBC 11-25 /HPF (0-5) H 04/30/23 19:34 Ur Squamous Epith Cells FEW Squamous (<= Few) 04/30/23 19:34 Amorphous Sediment Few /LPF 04/30/23 19:34 Urine Bacteria Moderate /HPF (None Seen) H 04/30/23 19:34 Ur Microscopic Review INDICATED 04/30/23 19:34 Urine Culture Comments INDICATED 04/30/23 19:34 Nasal Adenovirus (PCR) NOT DETECTED 04/30/23 18:14 Nasal B. parapertussis DNA (PCR) NOT DETECTED 04/30/23 18:14 Nasal Coronavir 229E PCR NOT DETECTED 04/30/23 18:14 Nasal Coronavir HKU1 PCR NOT DETECTED 04/30/23 18:14 Nasal Coronavir NL63 PCR NOT DETECTED 04/30/23 18:14 Nasal Coronavir OC43 PCR NOT DETECTED 04/30/23 18:14 Nasal Enterovir/Rhinovir PCR NOT DETECTED 04/30/23 18:14 Nasal Influenza B PCR NOT DETECTED 04/30/23 18:14 Nasal Influenza A PCR NOT DETECTED 04/30/23 18:14 Nasal Parainfluen 1 PCR NOT DETECTED 04/30/23 18:14 Nasal Parainfluen 2 PCR NOT DETECTED 04/30/23 18:14 Nasal Parainfluen 3 PCR NOT DETECTED 04/30/23 18:14 Nasal Parainfluen 4 PCR NOT DETECTED 04/30/23 18:14 Nasal RSV (PCR) NOT DETECTED 04/30/23 18:14 Nasal B.pertussis DNA PCR NOT DETECTED 04/30/23 18:14 Nasal C.pneumoniae (PCR) NOT DETECTED 04/30/23 18:14 Nathan Human Metapneumo PCR NOT DETECTED 04/30/23 18:14 Nasal M.pneumoniae (PCR) NOT DETECTED 04/30/23 18:14 Nasal SARS-CoV-2 (PCR) NOT DETECTED 04/30/23 18:14 - Procedures Procedures: Procedures CONTINUOUS INVASIVE MECHANICAL VENTILATION <96 CONSEC HRS (09/29/13) INSERT ENDOTRACHEAL TUBE (09/29/13) INSERT GASTRIC TUBE NEC (09/29/13) INSERTION OF INFUSION DEV INTO SUP VENA CAVA, PERC APPROACH (02/14/17) REPLACE CYSTOSTOMY TUBE (06/12/14) RETROGRADE PYELOGRAM (06/12/14) TU BLADDER CLEARANCE (06/12/14) VENOUS CATHETERIZATION NEC (09/29/13) Sepsis Event Note (H) - Evaluation Current Stage of Sepsis: Severe sepsis (patient comfort measures) Possible source of Sepsis: positive: Genitourinary - Sepsis Criteria Sepsis Criteria: Suspected or Documented, WBC count greater than 12,000 or less than 4000, SBP drop more than 40mHg, Metabolic: lactate > 2 mmol/L
[2023-05-07] MEDS: hydrOXYzine PAMOATE 25 MG CAPSULE PO SCH (20:48)
[2023-05-07] MEDS: AMITRIPTYLINE 25 MG TABLET PO SCH (20:48)
[2023-05-08] MEDS: SODIUM CHLORIDE FLUSH 0.9% 10 ML SYRINGE IVP SCH ×4 (00:26→23:46)
[2023-05-08] MEDS: MEROPENEM 1 GM in SODIUM CHLORIDE 0.9% MINIBAG 100 ML IV SCH ×3 (08:25→23:46)
[2023-05-08] MEDS: DULoxetine 30 MG CAPSULE PO SCH (08:29)
[2023-05-08] MEDS: PREGABALIN 100 MG CAPSULE PO SCH ×2 (08:29→22:04)
[2023-05-08] MEDS: amLODIPine 5 MG TABLET PO SCH (08:30)
[2023-05-08] MEDS: risperiDONE 1 MG TABLET PO SCH ×2 (08:30→22:04)
[2023-05-08] MEDS: POTASSIUM CHLORIDE 10 MEQ CAPSULE PO SCH (08:30)
[2023-05-08] MEDS: MAGNESIUM OXIDE 400 MG TABLET PO SCH (08:30)
[2023-05-08] MEDS: ASPIRIN EC 81 MG TABLET PO SCH (08:30)
[2023-05-08] MEDS: MULTIVITAMIN W/MINERALS TABLET PO SCH (08:30)
[2023-05-08] MEDS: SACCHAROMYCES BOULARDII 250 MG CAPSULE PO SCH (08:30)
[2023-05-08] MEDS: BUPRENORPHINE 0.3 MG/ML VIAL IM SCH ×2 (09:54→22:04)
[2023-05-08] MEDS ORDERED: SODIUM CHLORIDE 0.9% MINIBAG 100 ML IV ONE ×2 (15:51)
--- NOTE | 2023-05-08 16:08 | PROVIDER PROGRESS NOTE ---
Assessment/Plan - Problem List (1) Bacteremia due to Proteus species Assessment/Plan: Etiology is her UTI. Blood culture grew Proteus and Providentia. Repeat blood culture fro 05/04 still grew Providentia. The blood cx from 05/05 is neg at 48 hrs Plan: Currently on meropenem. Continue IV antibiotics for her bacteremia. since she is too somnolent to take po meds Will possibly change her to oral antibx, depending on sens, and depending on her allegies, once she awakens more. If on oral, she may not need a PICC line for iv antibx A 14 day total course is planned (2) UTI (urinary tract infection) due to urinary indwelling catheter Assessment/Plan: She presented with sepsis secondary to suprapubic Reyes catheter infection. Her urine cx grew Providentia Blood cultures from 05/02 returned positive for Proteus and Providentia. Bacteria growth from 05/04 bld cx showed still growing Providentia. Failed trial of Levofloxacin and metronidazole. We changed her to iv meropenem and repeat blood cultures were then done 05/05. The blood cx from 05/05 is neg at 48 hrs. Plan: She will need 14 total days of antibiotics. Unfortunately she may need to be IV for the entirety of duration given her allergies, so may need a PICC line. No po antibx could be starrted today due to hypersomnolence (see #3) Dispo will be either return to [facility] or Swing bed here. (3) Lethargy Assessment/Plan: She has been sleeping most of the day today, even more than her previous several days. She had to miss some of her p.o. meds because of sleepiness Vital signs are stable and she does not appear toxic therefore I suspect this lethargy is from many of her meds, which are over sedating her Plan: I will put parameters (if over-somnolent) for when to hold her Lyrica, Elavil at hs, Buprenorphine and I will make her Vistaril at bedtime prn and not scheduled. 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 She is bedbound, no PT eval was needed (6) Schizophrenia Qualifiers: Schizophrenia type: unspecified Qualified Code(s): F20.9 - Schizophrenia, unspecified Assessment/Plan: Plan: We resumed home psychiatric medications and will put parameters to hold if over- sedated (7) Hypokalemia RESOLVED with replacement po and iv Plan: Follow BMP daily (8) Sepsis Assessment/Plan: RESOLVED Plan: Continue antibiotics as above. (9) Acute kidney injury Assessment/Plan: RESOLVED Baseline creatinine is under 1. - Current Meds Current Meds: Current Medications Generic Name Dose Route Start Last Admin Trade Name Freq PRN Reason Stop Dose Admin Acetaminophen 650 mg 05/04/23 14:29 05/05/23 10:25 Acetaminophen 325 Mg Tablet PO 650 mg Q6HR PRN Administration Pain or Fever > 38C (100.4F) Amitriptyline HCl 25 mg 05/02/23 21:00 05/07/23 20:48 Amitriptyline 25 Mg Tablet PO Not Given HS JEAN Amlodipine Besylate 5 mg 05/04/23 11:00 05/08/23 08:30 Amlodipine 5 Mg Tablet PO 5 mg DAILY JEAN Administration Aspirin 81 mg 05/03/23 09:00 05/08/23 08:30 Aspirin Ec 81 Mg Tablet PO 81 mg DAILY JEAN Administration Buprenorphine 0.3 mg 05/02/23 21:00 05/08/23 09:54 Buprenorphine 0.3 Mg/Ml Vial IM 0.3 mg BID JEAN Administration Duloxetine HCl 30 mg 05/03/23 09:00 05/08/23 08:29 Duloxetine 30 Mg Capsule PO 30 mg DAILY JEAN Administration Hydroxyzine Pamoate 25 mg 05/02/23 21:00 05/07/23 20:48 Hydroxyzine Pamoate 25 Mg Capsule PO Not Given HS JEAN Meropenem 1 gm/ Sodium 100 mls @ 200 mls/hr 05/04/23 08:00 05/08/23 16:03 Chloride IV 200 mls/hr Q8H JEAN Administration Magnesium Oxide 400 mg 05/05/23 12:00 05/08/23 08:30 Magnesium Oxide 400 Mg Tablet PO 400 mg DAILYWM JEAN Administration Multivitamins/Minerals 1 tab 05/07/23 10:00 05/08/23 08:30 Multivitamin W/Minerals Tablet PO 1 tab DAILYWM JEAN Administration Potassium Chloride 20 meq 05/05/23 12:00 05/08/23 08:30 Potassium Chloride 10 Meq Capsule PO 20 meq DAILYWM JEAN Administration Pregabalin 300 mg 05/02/23 21:00 05/08/23 08:29 Pregabalin 100 Mg Capsule PO 300 mg BID JEAN Administration Risperidone 2 mg 05/02/23 21:00 05/08/23 08:30 Risperidone 1 Mg Tablet PO 2 mg BID JEAN Administration Saccharomyces Boulardii 250 mg 05/03/23 09:00 05/08/23 08:30 Saccharomyces Boulardii 250 Mg Capsule PO 250 mg DAILY JEAN Administration Sodium Chloride 10 ml 05/01/23 01:00 05/08/23 16:04 Sodium Chloride Flush 0.9% 10 Ml Syringe IVP 10 ml 0100,0900,1700 JEAN Administration - Lab Result Fish Bone Diagrams: 05/06/23 05:30 05/07/23 05:14 - Additional Planning My Orders: My Active Orders 05/08/23 11:02 Miscellaenous Nursing Order [RC] QSHIFT Subjective - Subjective Patient Reports: Resting Comfortably Objective Vital Signs: Vital Signs - 24 hr 05/08/23 05/08/23 01:11 08:00 Temperature 37.1 C 36.8 C Heart Rate [ 79 71 Brachial] Respiratory 20 20 Rate Blood Pressure 118/66 146/76 H [Right Brachial artery] O2 Saturation 93 91 L Oxygen O2 Source Room air Oxygen Flow Rate 2 I&O (Last 24 Hrs): Intake and Output Totals x24h 05/06/23 05/07/23 05/08/23 23:59 23:59 23:59 Intake Total 1940 1410 320 Output Total 1475 1800 1400 Balance 465 -390 -1080 General: Other (Lethargic) HEENT: Mucous membr. moist/pink Neuro: Other (Lethargic) Cardiovascular: No murmurs Respiratory: No respiratory distress Abdomen: Soft, Other (Obese) Extremities: Other (Trace pretibial edema) - Results Results: Laboratory Results WBC 9.1 x10^3/uL (4.8-10.8) 05/06/23 05:30 RBC 4.29 10^6/uL (4.20-5.40) 05/06/23 05:30 Hgb 10.7 g/dL (12.0-16.0) L 05/06/23 05:30 Hct 34.0 % (37.0-47.0) L 05/06/23 05:30 MCV 79.3 fL (81.0-99.0) L 05/06/23 05:30 MCH 24.9 pg (27.0-31.0) L 05/06/23 05:30 MCHC 31.5 g/dL (32.0-36.0) L 05/06/23 05:30 RDW 16.5 % (12.0-15.0) H 05/06/23 05:30 Plt Count 146 10^3/uL (130-450) 05/06/23 05:30 MPV 13.1 fL (7.9-10.8) H 05/06/23 05:30 Neut # (Auto) Not Reportable 05/06/23 05:30 Lymph # (Auto) Not Reportable 05/06/23 05:30 [place] # (Auto) Not Reportable 05/06/23 05:30 Eos # (Auto) Not Reportable 05/06/23 05:30 Baso # (Auto) Not Reportable 05/06/23 05:30 Absolute Nucleated RBC Not Reportable 05/06/23 05:30 Total Counted 100 05/06/23 05:30 Band Neuts % (Manual) 1 % (0-10) 05/06/23 05:30 Abnorm Lymph % (Manual) 0 % 05/06/23 05:30 Nucleated RBC % Not Reportable 05/06/23 05:30 Neutrophils # (Manual) 6.2 10^3/uL (1.5-6.6) 05/06/23 05:30 Lymphocytes # (Manual) 2.0 10^3/uL (1.5-3.5) 05/06/23 05:30 Monocytes # (Manual) 0.8 10^3/uL (0.0-1.0) 05/06/23 05:30 Eosinophils # (Manual) 0.1 10^3/uL (0-0.7) 05/06/23 05:30 Basophils # (Manual) 0.0 10^3/uL (0-0.1) 05/06/23 05:30 Differential Comment MANUAL DIFFERENTIAL 05/06/23 05:30 Platelet Estimate NORMAL (130-450,000) (NORMAL) 05/06/23 05:30 Platelet Morphology NORMAL EMELIA (NORMAL) 05/05/23 07:20 RBC Morph Micro Appear NORMAL APPEARANCE (NORMAL) 05/06/23 05:30 Sodium 140 mmol/L (135-145) 05/07/23 05:14 Potassium 3.9 mmol/L (3.5-4.5) 05/07/23 05:14 Chloride 107 mmol/L (101-111) 05/07/23 05:14 Carbon Dioxide 29 mmol/L (21-32) 05/07/23 05:14 Anion Gap 4.0 (6-13) L 05/07/23 05:14 BUN 5 mg/dL (6-20) L 05/07/23 05:14 Creatinine 0.6 mg/dL (0.6-1.3) 05/07/23 05:14 Estimated GFR (MDRD) 96 (>89) 05/07/23 05:14 Glucose 101 mg/dL (74-104) 05/07/23 05:14 Estimat Average Glucose 120 mg/dL (70-100) H 05/05/23 07:20 Hemoglobin A1c % 5.8 % (4.27-6.07) 05/05/23 07:20 Lactic Acid 1.0 mmol/L (0.5-2.2) 05/01/23 16:23 Calcium 8.0 mg/dL (8.5-10.3) L 05/07/23 05:14 Magnesium 1.7 mg/dL (1.7-2.3) 05/07/23 05:14 Total Bilirubin 0.4 mg/dL (0.2-1.0) 04/30/23 18:52 AST 29 IU/L (10-42) 04/30/23 18:52 ALT 14 IU/L (10-60) 04/30/23 18:52 Alkaline Phosphatase 62 IU/L (42-121) 04/30/23 18:52 Total Protein 6.5 g/dL (6.4-8.9) 04/30/23 18:52 Albumin 2.9 g/dL (3.2-5.5) L 04/30/23 18:52 Globulin 3.6 g/dL (2.1-4.2) 04/30/23 18:52 Albumin/Globulin Ratio 0.8 (1.0-2.2) L 04/30/23 18:52 Lipase 18 U/L (11-82) 04/30/23 18:52 Urine Color YELLOW 04/30/23 19:34 Urine Clarity CLOUDY (CLEAR) 04/30/23 19:34 Urine pH >=9.0 PH (5.0-7.5) H 04/30/23 19:34 Ur Specific Monitor <=1.005 (1.002-1.030) 04/30/23 19:34 Urine Protein 100 mg/dL (NEGATIVE) H 04/30/23 19:34 Urine Glucose (UA) NEGATIVE mg/dL (NEGATIVE) 04/30/23 19:34 Urine Ketones NEGATIVE mg/dL (NEGATIVE) 04/30/23 19:34 Urine Occult Blood NEGATIVE (NEGATIVE) 04/30/23 19:34 Urine Nitrite NEGATIVE (NEGATIVE) 04/30/23 19:34 Urine Bilirubin NEGATIVE (NEGATIVE) 04/30/23 19:34 Urine Urobilinogen 0.2 (NORMAL) E.U./dL (NORMAL) 04/30/23 19:34 Ur Leukocyte Esterase MODERATE (NEGATIVE) H 04/30/23 19:34 Urine RBC 0-5 /HPF (0-5) 04/30/23 19:34 Urine WBC 11-25 /HPF (0-5) H 04/30/23 19:34 Ur Squamous Epith Cells FEW Squamous (<= Few) 04/30/23 19:34 Amorphous Sediment Few /LPF 04/30/23 19:34 Urine Bacteria Moderate /HPF (None Seen) H 04/30/23 19:34 Ur Microscopic Review INDICATED 04/30/23 19:34 Urine Culture Comments INDICATED 04/30/23 19:34 Nasal Adenovirus (PCR) NOT DETECTED 04/30/23 18:14 Nasal B. parapertussis DNA (PCR) NOT DETECTED 04/30/23 18:14 Nasal Coronavir 229E PCR NOT DETECTED 04/30/23 18:14 Nasal Coronavir HKU1 PCR NOT DETECTED 04/30/23 18:14 Nasal Coronavir NL63 PCR NOT DETECTED 04/30/23 18:14 Nasal Coronavir OC43 PCR NOT DETECTED 04/30/23 18:14 Nasal Enterovir/Rhinovir PCR NOT DETECTED 04/30/23 18:14 Nasal Influenza B PCR NOT DETECTED 04/30/23 18:14 Nasal Influenza A PCR NOT DETECTED 04/30/23 18:14 Nasal Parainfluen 1 PCR NOT DETECTED 04/30/23 18:14 Nasal Parainfluen 2 PCR NOT DETECTED 04/30/23 18:14 Nasal Parainfluen 3 PCR NOT DETECTED 04/30/23 18:14 Nasal Parainfluen 4 PCR NOT DETECTED 04/30/23 18:14 Nasal RSV (PCR) NOT DETECTED 04/30/23 18:14 Nasal B.pertussis DNA PCR NOT DETECTED 04/30/23 18:14 Nasal C.pneumoniae (PCR) NOT DETECTED 04/30/23 18:14 Nathan Human Metapneumo PCR NOT DETECTED 04/30/23 18:14 Nasal M.pneumoniae (PCR) NOT DETECTED 04/30/23 18:14 Nasal SARS-CoV-2 (PCR) NOT DETECTED 04/30/23 18:14 - Procedures Procedures: Procedures CONTINUOUS INVASIVE MECHANICAL VENTILATION <96 CONSEC HRS (09/29/13) INSERT ENDOTRACHEAL TUBE (09/29/13) INSERT GASTRIC TUBE NEC (09/29/13) INSERTION OF INFUSION DEV INTO SUP VENA CAVA, PERC APPROACH (02/14/17) REPLACE CYSTOSTOMY TUBE (06/12/14) RETROGRADE PYELOGRAM (06/12/14) TU BLADDER CLEARANCE (06/12/14) VENOUS CATHETERIZATION NEC (09/29/13) Sepsis Event Note (H) - Evaluation Current Stage of Sepsis: Severe sepsis (patient comfort measures) Possible source of Sepsis: positive: Genitourinary - Sepsis Criteria Sepsis Criteria: Suspected or Documented, WBC count greater than 12,000 or less than 4000, SBP drop more than 40mHg, Metabolic: lactate > 2 mmol/L
[2023-05-08] MEDS ORDERED: hydrOXYzine PAMOATE 25 MG CAPSULE PO PRN (17:30)
[2023-05-08] MEDS: AMITRIPTYLINE 25 MG TABLET PO SCH (21:56)
[2023-05-09] MEDS ORDERED: SODIUM CHLORIDE 0.9% MINIBAG 100 ML IV ONE (07:59)
[2023-05-09] MEDS: MAGNESIUM OXIDE 400 MG TABLET PO SCH (08:10)
[2023-05-09] MEDS: POTASSIUM CHLORIDE 10 MEQ CAPSULE PO SCH (08:13)
[2023-05-09] MEDS: amLODIPine 5 MG TABLET PO SCH (08:13)
[2023-05-09] MEDS: DULoxetine 30 MG CAPSULE PO SCH (08:13)
[2023-05-09] MEDS: ASPIRIN EC 81 MG TABLET PO SCH (08:13)
[2023-05-09] MEDS: MULTIVITAMIN W/MINERALS TABLET PO SCH (08:14)
[2023-05-09] MEDS: SACCHAROMYCES BOULARDII 250 MG CAPSULE PO SCH (08:14)
[2023-05-09] MEDS: PREGABALIN 100 MG CAPSULE PO SCH ×2 (08:14→22:05)
[2023-05-09] MEDS: MEROPENEM 1 GM in SODIUM CHLORIDE 0.9% MINIBAG 100 ML IV SCH ×2 (08:14→16:17)
[2023-05-09] MEDS: SODIUM CHLORIDE FLUSH 0.9% 10 ML SYRINGE IVP SCH ×2 (08:15→16:19)
[2023-05-09] MEDS: risperiDONE 1 MG TABLET PO SCH ×2 (08:17→22:05)
[2023-05-09] MEDS: BUPRENORPHINE 0.3 MG/ML VIAL IM SCH ×2 (08:18→22:04)
[2023-05-09 08:49] LABS: BASOPHILS # (AUTO) 0.1 10^3/uL (0.0-0.1); BASOPHILS % (AUTO) 0.5 %; EOSINOPHILS # (AUTO) 0.3 10^3/uL (0.0-0.7); HCT - HEMATOCRIT 32.1 % (37.0-47.0); HGB - HEMOGLOBIN 10.1 g/dL (12.0-16.0); LYMPHOCYTES # (AUTO) 1.8 10^3/uL (1.5-3.5); LYMPHOCYTES % (AUTO) 19.7 %; MEAN CORPUSCULAR HEMOGLOBIN 24.6 pg (27.0-31.0); MEAN CORPUSCULAR HGB CONC 31.5 g/dL (32.0-36.0); MEAN CORPUSCULAR VOLUME 78.3 fL (81.0-99.0); MEAN PLATELET VOLUME 10.3 fL (7.9-10.8); MONOCYTES # (AUTO) 0.8 10^3/uL (0.0-1.0); MONOCYTES % (AUTO) 8.1 %; NEUTROPHILS # (AUTO) 6.3 10^3/uL (1.5-6.6); NEUTROPHILS % (AUTO) 67.9 %; PLT - PLATELET COUNT 282 10^3/uL (130-450); RED CELL DISTRIBUTION WIDTH 15.8 % (12.0-15.0); WHITE BLOOD COUNT 9.3 x10^3/uL (4.8-10.8)
[2023-05-09 09:04] LABS: POTASSIUM 4.3 mmol/L (3.5-4.5)
[2023-05-09 09:10] LABS: CALCIUM 8.5 mg/dL (8.5-10.3); CREATININE 0.6 mg/dL (0.6-1.3)
--- NOTE | 2023-05-09 17:56 | PROVIDER PROGRESS NOTE ---
Assessment/Plan - Problem List (1) Altered mental status Qualifiers: Qualified Code(s): R41.82 - Altered mental status, unspecified Assessment/Plan: She has been sleeping most of the day today, even more than her previous several days. She had to miss some of her p.o. meds because of sleepiness Vital signs are stable and she does not appear toxic therefore I suspect this lethargy is from many of her meds, which are over sedating her Overnight she was too somnolent totake po meds Plan: STAT head CT ordered today I put parameters (if over-somnolent) for when to hold her Lyrica, Elavil at hs, Buprenorphine and I will make her Vistaril at bedtime prn and not scheduled. (2) Bacteremia due to Proteus species Assessment/Plan: Etiology is her UTI. Blood culture grew Proteus and Providentia. Repeat blood culture fro 05/04 still grew Providentia. The blood cx from 05/05 is neg at 48 hrs Plan: Currently on meropenem. Continue IV antibiotics for her bacteremia. since she is too somnolent to take po meds Will possibly change her to oral antibx, depending on sens, and depending on her allegies, once she awakens more. If on oral, she may not need a PICC line for iv antibx A 14 day total course is planned (3) UTI (urinary tract infection) due to urinary indwelling catheter Assessment/Plan: She presented with sepsis secondary to suprapubic Reyes catheter infection. Her urine cx grew Providentia Blood cultures from 05/02 returned positive for Proteus and Providentia. Alessandro teria growth from 05/04 bld cx showed still growing Providentia. Failed trial of Levofloxacin and metronidazole. We changed her to iv meropenem and repeat blood cultures were then done 05/05. The blood cx from 05/05 is neg at 48 hrs. Plan: She will need 14 total days of antibiotics. Unfortunately she may need to be IV for the entirety of duration given her allergies, so may need a PICC line. No po antibx could be starrted today due to hypersomnolence (see #3) Dispo will be either return to [facility] or Swing bed here. 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 She is bedbound, no PT eval was needed (6) Schizophrenia Qualifiers: Schizophrenia type: unspecified Qualified Code(s): F20.9 - Schizophrenia, unspecified Assessment/Plan: Plan: We resumed home psychiatric medications and will put parameters to hold if over- sedated (7) Hypokalemia RESOLVED with replacement po and iv Plan: Follow BMP daily (8) Sepsis Assessment/Plan: RESOLVED Plan: Continue antibiotics as above. (9) Acute kidney injury Assessment/Plan: RESOLVED Baseline creatinine is under 1. - Current Meds Current Meds: Current Medications Generic Name Dose Route Start Last Admin Trade Name Freq PRN Reason Stop Dose Admin Acetaminophen 650 mg 05/04/23 14:29 05/05/23 10:25 Acetaminophen 325 Mg Tablet PO 650 mg Q6HR PRN Administration Pain or Fever > 38C (100.4F) Amitriptyline HCl 25 mg 05/08/23 17:30 05/08/23 21:56 Amitriptyline 25 Mg Tablet PO 25 mg HS JEAN Administration Amlodipine Besylate 5 mg 05/04/23 11:00 05/09/23 08:13 Amlodipine 5 Mg Tablet PO 5 mg DAILY JEAN Administration Aspirin 81 mg 05/03/23 09:00 05/09/23 08:13 Aspirin Ec 81 Mg Tablet PO 81 mg DAILY JEAN Administration Buprenorphine 0.3 mg 05/08/23 17:30 05/09/23 08:18 Buprenorphine 0.3 Mg/Ml Vial IM 0.3 mg BID JEAN Administration Duloxetine HCl 30 mg 05/03/23 09:00 05/09/23 08:13 Duloxetine 30 Mg Capsule PO 30 mg DAILY JEAN Administration Meropenem 1 gm/ Sodium 100 mls @ 200 mls/hr 05/04/23 08:00 05/09/23 16:17 Chloride IV 200 mls/hr Q8H JEAN Administration Magnesium Oxide 400 mg 05/05/23 12:00 05/09/23 08:10 Magnesium Oxide 400 Mg Tablet PO 400 mg DAILYWM JEAN Administration Multivitamins/Minerals 1 tab 05/07/23 10:00 05/09/23 08:14 Multivitamin W/Minerals Tablet PO 1 tab DAILYWM JEAN Administration Potassium Chloride 20 meq 05/05/23 12:00 05/09/23 08:13 Potassium Chloride 10 Meq Capsule PO 20 meq DAILYWM JEAN Administration Pregabalin 300 mg 05/08/23 17:30 05/09/23 08:14 Pregabalin 100 Mg Capsule PO 300 mg BID JEAN Administration Risperidone 2 mg 05/02/23 21:00 05/09/23 08:17 Risperidone 1 Mg Tablet PO 2 mg BID JEAN Administration Saccharomyces Boulardii 250 mg 05/03/23 09:00 05/09/23 08:14 Saccharomyces Boulardii 250 Mg Capsule PO 250 mg DAILY JEAN Administration Sodium Chloride 10 ml 05/01/23 01:00 05/09/23 16:19 Sodium Chloride Flush 0.9% 10 Ml Syringe IVP 10 ml 0100,0900,1700 JEAN Administration - Lab Result Fish Bone Diagrams: 05/10/23 05:45 05/10/23 05:45 - Additional Planning My Orders: My Active Orders 05/08/23 17:30 Amitriptyline [Elavil] 25 mg PO HS Buprenorphine [Buprenex] 0.3 mg IM BID Pregabalin [Lyrica] 300 mg PO BID hydrOXYzine PAMOATE [VistariL] 25 mg PO HS PRN 05/09/23 08:10 HEAD WO [CT] Stat 05/10/23 05:00 BMP - BASIC METABOLIC PANEL [CHEM] DAILYLAB CBC - COMP BLD CT W/AUTO DIFF [HEME] DAILYLAB MAGNESIUM [CHEM] DAILYLAB PHOSPHORUS [CHEM] DAILYLAB Subjective - Subjective Patient Reports: Other (Lethargic and difficult to arouse even to touch and repositoning) Objective Vital Signs: Vital Signs - 24 hr 05/08/23 05/09/23 05/09/23 23:52 07:49 15:50 Temperature 36.7 C 37.0 C 36.6 C Heart Rate [ 79 76 Brachial] Heart Rate [ 74 Radial] Respiratory 16 16 16 Rate Blood Pressure 111/66 165/93 H 125/73 [Right Brachial artery] O2 Saturation 92 94 91 L Oxygen O2 Source Room air Oxygen Flow Rate 2 I&O (Last 24 Hrs): Intake and Output Totals x24h 05/07/23 05/08/23 05/09/23 23:59 23:59 23:59 Intake Total 1410 520 340 Output Total 4568 9816 1638 Balance -933 -3871 -030 General: Other (Somnolent) HEENT: Mucous membr. moist/pink Neck: Other (Obese) Neuro: Other (Somnolent an difficult to arouse) Cardiovascular: No murmurs Respiratory: No respiratory distress Abdomen: Soft, Other (Obese) Extremities: Other (1+ edema) - Results Results: Laboratory Results WBC 9.3 x10^3/uL (4.8-10.8) 05/09/23 08:32 RBC 4.10 10^6/uL (4.20-5.40) L 05/09/23 08:32 Hgb 10.1 g/dL (12.0-16.0) L 05/09/23 08:32 Hct 32.1 % (37.0-47.0) L 05/09/23 08:32 MCV 78.3 fL (81.0-99.0) L 05/09/23 08:32 MCH 24.6 pg (27.0-31.0) L 05/09/23 08:32 MCHC 31.5 g/dL (32.0-36.0) L 05/09/23 08:32 RDW 15.8 % (12.0-15.0) H 05/09/23 08:32 Plt Count 282 10^3/uL (130-450) 05/09/23 08:32 MPV 10.3 fL (7.9-10.8) 05/09/23 08:32 Neut # (Auto) 6.3 10^3/uL (1.5-6.6) 05/09/23 08:32 Lymph # (Auto) 1.8 10^3/uL (1.5-3.5) 05/09/23 08:32 [place] # (Auto) 0.8 10^3/uL (0.0-1.0) 05/09/23 08:32 Eos # (Auto) 0.3 10^3/uL (0.0-0.7) 05/09/23 08:32 Baso # (Auto) 0.1 10^3/uL (0.0-0.1) 05/09/23 08:32 Absolute Nucleated RBC 0.00 x10^3/uL 05/09/23 08:32 Total Counted 100 05/06/23 05:30 Band Neuts % (Manual) 1 % (0-10) 05/06/23 05:30 Abnorm Lymph % (Manual) 0 % 05/06/23 05:30 Nucleated RBC % 0.0 /100WBC 05/09/23 08:32 Neutrophils # (Manual) 6.2 10^3/uL (1.5-6.6) 05/06/23 05:30 Lymphocytes # (Manual) 2.0 10^3/uL (1.5-3.5) 05/06/23 05:30 Monocytes # (Manual) 0.8 10^3/uL (0.0-1.0) 05/06/23 05:30 Eosinophils # (Manual) 0.1 10^3/uL (0-0.7) 05/06/23 05:30 Basophils # (Manual) 0.0 10^3/uL (0-0.1) 05/06/23 05:30 Differential Comment MANUAL DIFFERENTIAL 05/06/23 05:30 Platelet Estimate NORMAL (130-450,000) (NORMAL) 05/06/23 05:30 Platelet Morphology NORMAL EMELIA (NORMAL) 05/05/23 07:20 RBC Morph Micro Appear NORMAL APPEARANCE (NORMAL) 05/06/23 05:30 Sodium 135 mmol/L (135-145) 05/09/23 08:32 Potassium 4.3 mmol/L (3.5-4.5) 05/09/23 08:32 Chloride 102 mmol/L (101-111) 05/09/23 08:32 Carbon Dioxide 27 mmol/L (21-32) 05/09/23 08:32 Anion Gap 6.0 (6-13) 05/09/23 08:32 BUN 9 mg/dL (6-20) 05/09/23 08:32 Creatinine 0.6 mg/dL (0.6-1.3) 05/09/23 08:32 Estimated GFR (MDRD) 96 (>89) 05/09/23 08:32 Glucose 97 mg/dL (74-104) 05/09/23 08:32 Estimat Average Glucose 120 mg/dL (70-100) H 05/05/23 07:20 Hemoglobin A1c % 5.8 % (4.27-6.07) 05/05/23 07:20 Lactic Acid < 0.2 mmol/L (0.5-2.2) L 05/09/23 08:32 Calcium 8.5 mg/dL (8.5-10.3) 05/09/23 08:32 Magnesium 1.7 mg/dL (1.7-2.3) 05/07/23 05:14 Total Bilirubin 0.4 mg/dL (0.2-1.0) 04/30/23 18:52 AST 29 IU/L (10-42) 04/30/23 18:52 ALT 14 IU/L (10-60) 04/30/23 18:52 Alkaline Phosphatase 62 IU/L (42-121) 04/30/23 18:52 Total Protein 6.5 g/dL (6.4-8.9) 04/30/23 18:52 Albumin 2.9 g/dL (3.2-5.5) L 04/30/23 18:52 Globulin 3.6 g/dL (2.1-4.2) 04/30/23 18:52 Albumin/Globulin Ratio 0.8 (1.0-2.2) L 04/30/23 18:52 Lipase 18 U/L (11-82) 04/30/23 18:52 Urine Color YELLOW 04/30/23 19:34 Urine Clarity CLOUDY (CLEAR) 04/30/23 19:34 Urine pH >=9.0 PH (5.0-7.5) H 04/30/23 19:34 Ur Specific [place] <=1.005 (1.002-1.030) 04/30/23 19:34 Urine Protein 100 mg/dL (NEGATIVE) H 04/30/23 19:34 Urine Glucose (UA) NEGATIVE mg/dL (NEGATIVE) 04/30/23 19:34 Urine Ketones NEGATIVE mg/dL (NEGATIVE) 04/30/23 19:34 Urine Occult Blood NEGATIVE (NEGATIVE) 04/30/23 19:34 Urine Nitrite NEGATIVE (NEGATIVE) 04/30/23 19:34 Urine Bilirubin NEGATIVE (NEGATIVE) 04/30/23 19:34 Urine Urobilinogen 0.2 (NORMAL) E.U./dL (NORMAL) 04/30/23 19:34 Ur Leukocyte Esterase MODERATE (NEGATIVE) H 04/30/23 19:34 Urine RBC 0-5 /HPF (0-5) 04/30/23 19:34 Urine WBC 11-25 /HPF (0-5) H 04/30/23 19:34 Ur Squamous Epith Cells FEW Squamous (<= Few) 04/30/23 19:34 Amorphous Sediment Few /LPF 04/30/23 19:34 Urine Bacteria Moderate /HPF (None Seen) H 04/30/23 19:34 Ur Microscopic Review INDICATED 04/30/23 19:34 Urine Culture Comments INDICATED 04/30/23 19:34 Nasal Adenovirus (PCR) NOT DETECTED 04/30/23 18:14 Nasal B. parapertussis DNA (PCR) NOT DETECTED 04/30/23 18:14 Nasal Coronavir 229E PCR NOT DETECTED 04/30/23 18:14 Nasal Coronavir HKU1 PCR NOT DETECTED 04/30/23 18:14 Nasal Coronavir NL63 PCR NOT DETECTED 04/30/23 18:14 Nasal Coronavir OC43 PCR NOT DETECTED 04/30/23 18:14 Nasal Enterovir/Rhinovir PCR NOT DETECTED 04/30/23 18:14 Nasal Influenza B PCR NOT DETECTED 04/30/23 18:14 Nasal Influenza A PCR NOT DETECTED 04/30/23 18:14 Nasal Parainfluen 1 PCR NOT DETECTED 04/30/23 18:14 Nasal Parainfluen 2 PCR NOT DETECTED 04/30/23 18:14 Nasal Parainfluen 3 PCR NOT DETECTED 04/30/23 18:14 Nasal Parainfluen 4 PCR NOT DETECTED 04/30/23 18:14 Nasal RSV (PCR) NOT DETECTED 04/30/23 18:14 Nasal B.pertussis DNA PCR NOT DETECTED 04/30/23 18:14 Nasal C.pneumoniae (PCR) NOT DETECTED 04/30/23 18:14 Nathan Human Metapneumo PCR NOT DETECTED 04/30/23 18:14 Nasal M.pneumoniae (PCR) NOT DETECTED 04/30/23 18:14 Nasal SARS-CoV-2 (PCR) NOT DETECTED 04/30/23 18:14 - Procedures Procedures: Procedures CONTINUOUS INVASIVE MECHANICAL VENTILATION <96 CONSEC HRS (09/29/13) INSERT ENDOTRACHEAL TUBE (09/29/13) INSERT GASTRIC TUBE NEC (09/29/13) INSERTION OF INFUSION DEV INTO SUP VENA CAVA, PERC APPROACH (02/14/17) REPLACE CYSTOSTOMY TUBE (06/12/14) RETROGRADE PYELOGRAM (06/12/14) TU BLADDER CLEARANCE (06/12/14) VENOUS CATHETERIZATION NEC (09/29/13) Sepsis Event Note (H) - Evaluation Current Stage of Sepsis: Severe sepsis (patient comfort measures) Possible source of Sepsis: positive: Genitourinary - Sepsis Criteria Sepsis Criteria: Suspected or Documented, WBC count greater than 12,000 or less than 4000, SBP drop more than 40mHg, Metabolic: lactate > 2 mmol/L
--- NOTE | 2023-05-09 21:42 | CT Report ---
PROCEDURE: HEAD WO INDICATIONS: AMS, obtunded TECHNIQUE: Noncontrast 4.5 mm thick angled axial sections acquired from the foramen magnum to the vertex. For r adiation dose reduction, the following was used: automated exposure control, adjustment of mA and/or kV according to patient size. COMPARISON: CT head, 04/30/2023. FINDINGS: Image quality: Excellent. CSF spaces: Basal cisterns are patent. No extra-axial fluid collections. Ventricles are normal in size and shape. Brain: No midline shift. No intracranial masses or hemorrhage. Moderate cerebral volume loss and pe riventricular white matter chronic small vessel treatment changes. Skull and face: Calvarium and visualized facial bones are intact, without suspicious lesions. Sinuses: Sphenoid sinus is opacified. The mastoids are clear. IMPRESSION: 1. No acute intracranial pathology. 2. Cerebral volume loss and periventricular white matter chronic small vessel treatment changes. 3. Sphenoid sinusitis. Reviewed by: Dennise Harris MD on 05/09/2023 9:41 PM PST Approved by: Dennise Harris MD on 05/09/2023 9:41 PM PST Station ID: [id number]
[2023-05-09] MEDS: AMITRIPTYLINE 25 MG TABLET PO SCH (22:04)
[2023-05-10] MEDS: MEROPENEM 1 GM in SODIUM CHLORIDE 0.9% MINIBAG 100 ML IV SCH ×3 (00:25→16:36)
[2023-05-10] MEDS: SODIUM CHLORIDE FLUSH 0.9% 10 ML SYRINGE IVP SCH ×3 (00:26→16:36)
[2023-05-10 06:07] LABS: BASOPHILS % (AUTO) 0.6 %; EOSINOPHILS # (AUTO) 0.3 10^3/uL (0.0-0.7); EOSINOPHILS % (AUTO) 4.1 %; HCT - HEMATOCRIT 30.5 % (37.0-47.0); HGB - HEMOGLOBIN 9.7 g/dL (12.0-16.0); LYMPHOCYTES # (AUTO) 1.7 10^3/uL (1.5-3.5); LYMPHOCYTES % (AUTO) 25.3 %; MEAN CORPUSCULAR HEMOGLOBIN 25.3 pg (27.0-31.0); MEAN CORPUSCULAR HGB CONC 31.8 g/dL (32.0-36.0); MEAN CORPUSCULAR VOLUME 79.6 fL (81.0-99.0); MEAN PLATELET VOLUME 10.6 fL (7.9-10.8); MONOCYTES # (AUTO) 0.7 10^3/uL (0.0-1.0); MONOCYTES % (AUTO) 10.5 %; NEUTROPHILS # (AUTO) 3.9 10^3/uL (1.5-6.6); NEUTROPHILS % (AUTO) 58.9 %; PLT - PLATELET COUNT 309 10^3/uL (130-450); RED BLOOD COUNT 3.83 10^6/uL (4.20-5.40); RED CELL DISTRIBUTION WIDTH 15.9 % (12.0-15.0); WHITE BLOOD COUNT 6.6 x10^3/uL (4.8-10.8)
[2023-05-10 06:40] LABS: CALCIUM 8.6 mg/dL (8.5-10.3); CREATININE 0.6 mg/dL (0.6-1.3); MAGNESIUM 2.1 mg/dL (1.7-2.3)
[2023-05-10] MEDS: ASPIRIN EC 81 MG TABLET PO SCH (09:17)
[2023-05-10] MEDS: MULTIVITAMIN W/MINERALS TABLET PO SCH (09:17)
[2023-05-10] MEDS: POTASSIUM CHLORIDE 10 MEQ CAPSULE PO SCH (09:17)
[2023-05-10] MEDS: amLODIPine 5 MG TABLET PO SCH (09:17)
[2023-05-10] MEDS: MAGNESIUM OXIDE 400 MG TABLET PO SCH (09:17)
[2023-05-10] MEDS: DULoxetine 30 MG CAPSULE PO SCH (09:18)
[2023-05-10] MEDS: BUPRENORPHINE 0.3 MG/ML VIAL IM SCH ×2 (09:18→22:03)
[2023-05-10] MEDS: risperiDONE 1 MG TABLET PO SCH ×2 (09:18→21:11)
[2023-05-10] MEDS: SACCHAROMYCES BOULARDII 250 MG CAPSULE PO SCH (09:18)
[2023-05-10] MEDS: PREGABALIN 100 MG CAPSULE PO SCH ×2 (09:18→21:10)
--- NOTE | 2023-05-10 09:18 | PROVIDER PROGRESS NOTE ---
Assessment/Plan - Problem List (1) Bacteremia due to Proteus species Assessment/Plan: Etiology is her UTI. Blood culture grew Proteus and Providentia. Repeat blood culture fro 05/04 still grew Providentia. Antibx Levofloxacin and metronidazole were then changed to meropenem. The blood cx from 05/05 is neg at 48 hrs Plan: Continue IV meropeam, since she was too somnolent to take po meds, when we were considering changing her to oral antibx, once she awakened more., and depending on sens, and depending on her allegies However, sens show she needs iv meropenam and the course will be 14 days from the neg blood cx day of 05/05, thus she needs a PICC line for iv antibx to continue thru 05/18/23. PICC line ordered to be inserted by Anesthesia (however they do not insert PICCs on weekends and today is a Sun) (2) UTI (urinary tract infection) due to urinary indwelling catheter Assessment/Plan: She presented with sepsis secondary to suprapubic Reyes catheter infection. Her urine cx grew Providentia Blood cultures from 05/02 returned positive for Proteus and Providentia. Bacteria growth from 05/04 bld cx showed still growing Providentia. Failed trial of Levofloxacin and metronidazole. We changed her to iv meropenem and repeat blood cultures were then done 05/05. The blood cx from 05/05 is neg at 48 hrs. Plan: She will need 14 total days of antibiotics. Unfortunately she needs to be IV for the entirety of duration given her allergies, so may need a PICC line. No po antibx could be starrted today due to hypersomnolence (see #3) Dispo will be either return to [facility] or Swing bed here. (3) Altered mental status Assessment/Plan: She has been sleeping most of the day today, even more than her previous several days. She had to miss some of her p.o. meds because of sleepiness Vital signs are stable and she does not appear toxic therefore I suspect this lethargy is from many of her meds, which are over sedating her Overnight she was too somnolent totake po meds STAT head CT ordered and was done last evening and showed no stroke or bleed (report reviewed) Plan: I put parameters (if over-somnolent) for when to hold her Lyrica, Elavil at hs, Buprenorphine and I will make her Vistaril at bedtime prn and not scheduled. (4) T2DM (type 2 diabetes mellitus) Assessment/Plan: She has a poor appetite, however was eating well when fed, per [employer] Plan: Cont DM meds Diet consult to change her to pureed diet I ordered pt must be fed (5) Above knee amputation of left lower extremity Assessment/Plan: Resides at [facility]. She is bedbound, no PT eval was needed (6) Schizophrenia Qualifiers: Schizophrenia type: unspecified Qualified Code(s): F20.9 - Schizophrenia, unspecified Assessment/Plan: Plan: We resumed home psychiatric medications and will put parameters to hold if over- sedated (7) Hypokalemia RESOLVED with replacement po and iv Plan: Follow BMP daily (8) Sepsis Assessment/Plan: RESOLVED Plan: Continue antibiotics as above. (9) Acute kidney injury Assessment/Plan: RESOLVED Baseline creatinine is under 1. - Current Meds Current Meds: Current Medications Generic Name Dose Route Start Last Admin Trade Name Freq PRN Reason Stop Dose Admin Acetaminophen 650 mg 05/04/23 14:29 05/05/23 10:25 Acetaminophen 325 Mg Tablet PO 650 mg Q6HR PRN Administration Pain or Fever > 38C (100.4F) Amitriptyline HCl 25 mg 05/08/23 17:30 05/09/23 22:04 Amitriptyline 25 Mg Tablet PO Not Given HS EJAN Amlodipine Besylate 5 mg 05/04/23 11:00 05/09/23 08:13 Amlodipine 5 Mg Tablet PO 5 mg DAILY JEAN Administration Aspirin 81 mg 05/03/23 09:00 05/09/23 08:13 Aspirin Ec 81 Mg Tablet PO 81 mg DAILY JEAN Administration Buprenorphine 0.3 mg 05/08/23 17:30 05/09/23 22:04 Buprenorphine 0.3 Mg/Ml Vial IM Not Given BID JEAN Duloxetine HCl 30 mg 05/03/23 09:00 05/09/23 08:13 Duloxetine 30 Mg Capsule PO 30 mg DAILY JEAN Administration Meropenem 1 gm/ Sodium 100 mls @ 200 mls/hr 05/04/23 08:00 05/10/23 01:00 Chloride IV Infused Q8H JEAN Infusion Magnesium Oxide 400 mg 05/05/23 12:00 05/09/23 08:10 Magnesium Oxide 400 Mg Tablet PO 400 mg DAILYWM JEAN Administration Multivitamins/Minerals 1 tab 05/07/23 10:00 05/09/23 08:14 Multivitamin W/Minerals Tablet PO 1 tab DAILYWM JEAN Administration Potassium Chloride 20 meq 05/05/23 12:00 05/09/23 08:13 Potassium Chloride 10 Meq Capsule PO 20 meq DAILYWM JEAN Administration Pregabalin 300 mg 05/08/23 17:30 05/09/23 22:05 Pregabalin 100 Mg Capsule PO Not Given BID JEAN Risperidone 2 mg 05/02/23 21:00 05/09/23 22:05 Risperidone 1 Mg Tablet PO 2 mg BID JEAN Administration Saccharomyces Boulardii 250 mg 05/03/23 09:00 05/09/23 08:14 Saccharomyces Boulardii 250 Mg Capsule PO 250 mg DAILY JEAN Administration Sodium Chloride 10 ml 05/01/23 01:00 05/10/23 00:26 Sodium Chloride Flush 0.9% 10 Ml Syringe IVP 10 ml 0100,0900,1700 JEAN Administration - Lab Result Fish Bone Diagrams: 05/10/23 05:45 05/10/23 05:45 - Additional Planning My Orders: My Active Orders 05/10/23 05:00 IRON TIBC PANEL [CHEM] Routine 05/10/23 09:09 PICC Line Care [RC] Q4H PICC Line Insert [RC] .ONCE Subjective - Subjective Patient Reports: Other (Lethargic, awakens to tpuch) Objective Vital Signs: Vital Signs - 24 hr 05/09/23 05/10/23 05/10/23 15:50 00:28 08:00 Temperature 36.6 C 36.6 C 36.6 C Heart Rate [ 76 62 63 Brachial] Respiratory 16 18 20 Rate Blood Pressure 125/73 144/82 H 136/73 H [Right Brachial artery] O2 Saturation 91 L 92 93 Oxygen O2 Source Room air Oxygen Flow Rate 2 I&O (Last 24 Hrs): Intake and Output Totals x24h 05/08/23 05/09/23 05/10/23 23:59 23:59 23:59 Intake Total 520 1000 220 Output Total 1950 1925 650 Balance -1430 -925 -430 General: Other (Lethargic, awakens to touch) HEENT: Mucous membr. moist/pink Neck: Other (Obese) Neuro: Other (Lethargic, awakens to touch. Speech is semi-understandable) Cardiovascular: No murmurs Respiratory: No respiratory distress Abdomen: Soft, Other (Obese) Extremities: Other (2+ edema) - Results Results: Laboratory Results WBC 6.6 x10^3/uL (4.8-10.8) 05/10/23 05:45 RBC 3.83 10^6/uL (4.20-5.40) L 05/10/23 05:45 Hgb 9.7 g/dL (12.0-16.0) L 05/10/23 05:45 Hct 30.5 % (37.0-47.0) L 05/10/23 05:45 MCV 79.6 fL (81.0-99.0) L 05/10/23 05:45 MCH 25.3 pg (27.0-31.0) L 05/10/23 05:45 MCHC 31.8 g/dL (32.0-36.0) L 05/10/23 05:45 RDW 15.9 % (12.0-15.0) H 05/10/23 05:45 Plt Count 309 10^3/uL (130-450) 05/10/23 05:45 MPV 10.6 fL (7.9-10.8) 05/10/23 05:45 Neut # (Auto) 3.9 10^3/uL (1.5-6.6) 05/10/23 05:45 Lymph # (Auto) 1.7 10^3/uL (1.5-3.5) 05/10/23 05:45 [place] # (Auto) 0.7 10^3/uL (0.0-1.0) 05/10/23 05:45 Eos # (Auto) 0.3 10^3/uL (0.0-0.7) 05/10/23 05:45 Baso # (Auto) 0.0 10^3/uL (0.0-0.1) 05/10/23 05:45 Absolute Nucleated RBC 0.00 x10^3/uL 05/10/23 05:45 Total Counted 100 05/06/23 05:30 Band Neuts % (Manual) 1 % (0-10) 05/06/23 05:30 Abnorm Lymph % (Manual) 0 % 05/06/23 05:30 Nucleated RBC % 0.0 /100WBC 05/10/23 05:45 Neutrophils # (Manual) 6.2 10^3/uL (1.5-6.6) 05/06/23 05:30 Lymphocytes # (Manual) 2.0 10^3/uL (1.5-3.5) 05/06/23 05:30 Monocytes # (Manual) 0.8 10^3/uL (0.0-1.0) 05/06/23 05:30 Eosinophils # (Manual) 0.1 10^3/uL (0-0.7) 05/06/23 05:30 Basophils # (Manual) 0.0 10^3/uL (0-0.1) 05/06/23 05:30 Differential Comment MANUAL DIFFERENTIAL 05/06/23 05:30 Platelet Estimate NORMAL (130-450,000) (NORMAL) 05/06/23 05:30 Platelet Morphology NORMAL EMELIA (NORMAL) 05/05/23 07:20 RBC Morph Micro Appear NORMAL APPEARANCE (NORMAL) 05/06/23 05:30 Sodium 139 mmol/L (135-145) 05/10/23 05:45 Potassium 4.0 mmol/L (3.5-4.5) 05/10/23 05:45 Chloride 105 mmol/L (101-111) 05/10/23 05:45 Carbon Dioxide 29 mmol/L (21-32) 05/10/23 05:45 Anion Gap 5.0 (6-13) L 05/10/23 05:45 BUN 9 mg/dL (6-20) 05/10/23 05:45 Creatinine 0.6 mg/dL (0.6-1.3) 05/10/23 05:45 Estimated GFR (MDRD) 96 (>89) 05/10/23 05:45 Glucose 79 mg/dL (74-104) 05/10/23 05:45 Estimat Average Glucose 120 mg/dL (70-100) H 05/05/23 07:20 Hemoglobin A1c % 5.8 % (4.27-6.07) 05/05/23 07:20 Lactic Acid < 0.2 mmol/L (0.5-2.2) L 05/09/23 08:32 Calcium 8.6 mg/dL (8.5-10.3) 05/10/23 05:45 Phosphorus 3.0 mg/dL (2.5-5.0) 05/10/23 05:45 Magnesium 2.1 mg/dL (1.7-2.3) 05/10/23 05:45 Total Bilirubin 0.4 mg/dL (0.2-1.0) 04/30/23 18:52 AST 29 IU/L (10-42) 04/30/23 18:52 ALT 14 IU/L (10-60) 04/30/23 18:52 Alkaline Phosphatase 62 IU/L (42-121) 04/30/23 18:52 Total Protein 6.5 g/dL (6.4-8.9) 04/30/23 18:52 Albumin 2.9 g/dL (3.2-5.5) L 04/30/23 18:52 Globulin 3.6 g/dL (2.1-4.2) 04/30/23 18:52 Albumin/Globulin Ratio 0.8 (1.0-2.2) L 04/30/23 18:52 Lipase 18 U/L (11-82) 04/30/23 18:52 Urine Color YELLOW 04/30/23 19:34 Urine Clarity CLOUDY (CLEAR) 04/30/23 19:34 Urine pH >=9.0 PH (5.0-7.5) H 04/30/23 19:34 Ur Specific [place] <=1.005 (1.002-1.030) 04/30/23 19:34 Urine Protein 100 mg/dL (NEGATIVE) H 04/30/23 19:34 Urine Glucose (UA) NEGATIVE mg/dL (NEGATIVE) 04/30/23 19:34 Urine Ketones NEGATIVE mg/dL (NEGATIVE) 04/30/23 19:34 Urine Occult Blood NEGATIVE (NEGATIVE) 04/30/23 19:34 Urine Nitrite NEGATIVE (NEGATIVE) 04/30/23 19:34 Urine Bilirubin NEGATIVE (NEGATIVE) 04/30/23 19:34 Urine Urobilinogen 0.2 (NORMAL) E.U./dL (NORMAL) 04/30/23 19:34 Ur Leukocyte Esterase MODERATE (NEGATIVE) H 04/30/23 19:34 Urine RBC 0-5 /HPF (0-5) 04/30/23 19:34 Urine WBC 11-25 /HPF (0-5) H 04/30/23 19:34 Ur Squamous Epith Cells FEW Squamous (<= Few) 04/30/23 19:34 Amorphous Sediment Few /LPF 04/30/23 19:34 Urine Bacteria Moderate /HPF (None Seen) H 04/30/23 19:34 Ur Microscopic Review INDICATED 04/30/23 19:34 Urine Culture Comments INDICATED 04/30/23 19:34 Nasal Adenovirus (PCR) NOT DETECTED 04/30/23 18:14 Nasal B. parapertussis DNA (PCR) NOT DETECTED 04/30/23 18:14 Nasal Coronavir 229E PCR NOT DETECTED 04/30/23 18:14 Nasal Coronavir HKU1 PCR NOT DETECTED 04/30/23 18:14 Nasal Coronavir NL63 PCR NOT DETECTED 04/30/23 18:14 Nasal Coronavir OC43 PCR NOT DETECTED 04/30/23 18:14 Nasal Enterovir/Rhinovir PCR NOT DETECTED 04/30/23 18:14 Nasal Influenza B PCR NOT DETECTED 04/30/23 18:14 Nasal Influenza A PCR NOT DETECTED 04/30/23 18:14 Nasal Parainfluen 1 PCR NOT DETECTED 04/30/23 18:14 Nasal Parainfluen 2 PCR NOT DETECTED 04/30/23 18:14 Nasal Parainfluen 3 PCR NOT DETECTED 04/30/23 18:14 Nasal Parainfluen 4 PCR NOT DETECTED 04/30/23 18:14 Nasal RSV (PCR) NOT DETECTED 04/30/23 18:14 Nasal B.pertussis DNA PCR NOT DETECTED 04/30/23 18:14 Nasal C.pneumoniae (PCR) NOT DETECTED 04/30/23 18:14 Nathan Human Metapneumo PCR NOT DETECTED 04/30/23 18:14 Nasal M.pneumoniae (PCR) NOT DETECTED 04/30/23 18:14 Nasal SARS-CoV-2 (PCR) NOT DETECTED 04/30/23 18:14 - Procedures Procedures: Procedures CONTINUOUS INVASIVE MECHANICAL VENTILATION <96 CONSEC HRS (09/29/13) INSERT ENDOTRACHEAL TUBE (09/29/13) INSERT GASTRIC TUBE NEC (09/29/13) INSERTION OF INFUSION DEV INTO SUP VENA CAVA, PERC APPROACH (02/14/17) REPLACE CYSTOSTOMY TUBE (06/12/14) RETROGRADE PYELOGRAM (06/12/14) TU BLADDER CLEARANCE (06/12/14) VENOUS CATHETERIZATION NEC (09/29/13) Sepsis Event Note (H) - Evaluation Current Stage of Sepsis: Severe sepsis (patient comfort measures) Possible source of Sepsis: positive: Genitourinary - Sepsis Criteria Sepsis Criteria: Suspected or Documented, WBC count greater than 12,000 or less than 4000, SBP drop more than 40mHg, Metabolic: lactate > 2 mmol/L
[2023-05-10 09:28] LABS: % IRON SATURATION 9 % (20-50); IRON 21 ug/dL (50-212); TOTAL IRON BINDING CAPACITY 223 ug/dL (250-450); TRANSFERRIN 159 mg/dL (203-362)
[2023-05-10] MEDS: ACETAMINOPHEN 325 MG TABLET PO PRN (10:52)
[2023-05-10] MEDS: AMITRIPTYLINE 25 MG TABLET PO SCH (21:12)
[2023-05-11] MEDS: MEROPENEM 1 GM in SODIUM CHLORIDE 0.9% MINIBAG 100 ML IV SCH ×3 (00:47→16:16)
[2023-05-11] MEDS: SODIUM CHLORIDE FLUSH 0.9% 10 ML SYRINGE IVP SCH ×3 (00:48→16:16)
[2023-05-11] MEDS: SACCHAROMYCES BOULARDII 250 MG CAPSULE PO SCH (09:03)
[2023-05-11] MEDS: MULTIVITAMIN W/MINERALS TABLET PO SCH (09:03)
[2023-05-11] MEDS: DULoxetine 30 MG CAPSULE PO SCH (09:03)
[2023-05-11] MEDS: POTASSIUM CHLORIDE 10 MEQ CAPSULE PO SCH (09:03)
[2023-05-11] MEDS: PREGABALIN 100 MG CAPSULE PO SCH ×2 (09:04→20:29)
[2023-05-11] MEDS: MAGNESIUM OXIDE 400 MG TABLET PO SCH (09:04)
[2023-05-11] MEDS: amLODIPine 5 MG TABLET PO SCH (09:04)
[2023-05-11] MEDS: ASPIRIN EC 81 MG TABLET PO SCH (09:04)
[2023-05-11] MEDS: BUPRENORPHINE 0.3 MG/ML VIAL IM SCH ×2 (09:30→20:29)
[2023-05-11] MEDS: risperiDONE 1 MG TABLET PO SCH ×2 (10:18→20:29)
--- NOTE | 2023-05-11 14:47 | PROVIDER PROGRESS NOTE ---
Assessment/Plan - Problem List (1) Bacteremia due to Proteus species Assessment/Plan: Etiology is her UTI. Blood culture grew Proteus and Providentia. Repeat blood culture fro 05/04 still grew Providentia. Antibx Levofloxacin and metronidazole were then changed to meropenem. The blood cx from 05/05 is neg at 48 hrs Plan: Continue IV meropeam, since she was too somnolent to take po meds, when we were considering changing her to oral antibx, once she awakened more., and depending on sens, and depending on her allegies However, sens show she needs iv meropenam and the course will be 14 days from the neg blood cx day of 05/05, thus she needs a PICC line for iv antibx to continue thru 05/18/23. PICC line ordered to be inserted by Anesthesia (however they do not do PICC insertions on weekends or holidays and today is ) (2) UTI (urinary tract infection) due to urinary indwelling catheter Assessment/Plan: She presented with sepsis secondary to suprapubic Reyes catheter infection. Her urine cx grew Providentia Blood cultures from 05/02 returned positive for Proteus and Providentia. Bacteria growth from 05/04 bld cx showed still growing Providentia. Failed trial of Levofloxacin and metronidazole. We changed her to iv meropenem and repeat blood cultures were then done 05/05. The blood cx from 05/05 is neg at 48 hrs. Plan: She will need 14 total days of antibiotics. Unfortunately she needs to be IV for the entirety of duration given her allergies, so may need a PICC line. No po antibx could be starrted today due to hypersomnolence (see #3) Dispo will be either return to [facility] or Swing bed here. (3) Altered mental status Assessment/Plan: She was sleeping most of the day 2 days ago, even more than her previous several days. She had to miss some of her p.o. meds because of sleepiness Vital signs are stable and she does not appear toxic therefore I suspect this lethargy is from many of her meds, which are over sedating her Overnight she was too somnolent to take po meds STAT head CT ordered and showed no stroke or bleed (report reviewed) Plan: I put parameters (if over-somnolent) for when to hold her Lyrica, Elavil at hs, Buprenorphine and I will make her Vistaril at bedtime prn and not scheduled. (4) T2DM (type 2 diabetes mellitus) Assessment/Plan: She has a poor appetite, however was eating well when fed, per [employer] Plan: Cont DM meds Diet consult to change her to pureed diet I ordered pt must be fed (5) Above knee amputation of left lower extremity Assessment/Plan: Resides at [facility]. She is bedbound, no PT eval was needed (6) Schizophrenia Qualifiers: Schizophrenia type: unspecified Qualified Code(s): F20.9 - Schizophrenia, unspecified Assessment/Plan: Plan: We resumed home psychiatric medications and will put parameters to hold if over- sedated (7) Hypokalemia RESOLVED with replacement po and iv Plan: Follow BMP daily (8) Sepsis Assessment/Plan: RESOLVED Plan: Continue antibiotics as above. (9) Acute kidney injury Assessment/Plan: RESOLVED Baseline creatinine is under 1. - Current Meds Current Meds: Current Medications Generic Name Dose Route Start Last Admin Trade Name Freq PRN Reason Stop Dose Admin Acetaminophen 650 mg 05/04/23 14:29 05/10/23 10:52 Acetaminophen 325 Mg Tablet PO 650 mg Q6HR PRN Administration Pain or Fever > 38C (100.4F) Amitriptyline HCl 25 mg 05/08/23 17:30 05/10/23 21:12 Amitriptyline 25 Mg Tablet PO 25 mg HS JEAN Administration Amlodipine Besylate 5 mg 05/04/23 11:00 05/11/23 09:04 Amlodipine 5 Mg Tablet PO 5 mg DAILY JEAN Administration Aspirin 81 mg 05/03/23 09:00 05/11/23 09:04 Aspirin Ec 81 Mg Tablet PO 81 mg DAILY JEAN Administration Buprenorphine 0.3 mg 05/08/23 17:30 05/11/23 09:30 Buprenorphine 0.3 Mg/Ml Vial IM 0.3 mg BID JEAN Administration Duloxetine HCl 30 mg 05/10/23 10:55 05/11/23 09:03 Duloxetine 30 Mg Capsule PO 30 mg DAILY JEAN Administration Meropenem 1 gm/ Sodium 100 mls @ 200 mls/hr 05/04/23 08:00 05/11/23 09:40 Chloride IV Infused Q8H JEAN Infusion Magnesium Oxide 400 mg 05/05/23 12:00 05/11/23 09:04 Magnesium Oxide 400 Mg Tablet PO 400 mg DAILYWM JEAN Administration Multivitamins/Minerals 1 tab 05/07/23 10:00 05/11/23 09:03 Multivitamin W/Minerals Tablet PO 1 tab DAILYWM JEAN Administration Potassium Chloride 20 meq 05/05/23 12:00 05/11/23 09:03 Potassium Chloride 10 Meq Capsule PO 20 meq DAILYWM JEAN Administration Pregabalin 300 mg 05/08/23 17:30 05/11/23 09:04 Pregabalin 100 Mg Capsule PO 300 mg BID JEAN Administration Risperidone 2 mg 05/10/23 10:54 05/11/23 10:18 Risperidone 1 Mg Tablet PO Not Given BID JEAN Saccharomyces Boulardii 250 mg 05/03/23 09:00 05/11/23 09:03 Saccharomyces Boulardii 250 Mg Capsule PO 250 mg DAILY JEAN Administration Sodium Chloride 10 ml 05/01/23 01:00 05/11/23 10:25 Sodium Chloride Flush 0.9% 10 Ml Syringe IVP 10 ml 0100,0900,1700 JEAN Administration - Lab Result Fish Bone Diagrams: 05/10/23 05:45 05/10/23 05:45 Subjective - Subjective Patient Reports: Other (Lethrgic, awakens to touch, speech is off topic and sometimes garbled) Objective Vital Signs: Vital Signs - 24 hr 05/10/23 05/10/23 05/11/23 16:00 16:40 00:48 Temperature 36.1 C L 36.7 C 36.6 C Heart Rate [ 66 72 63 Brachial] Respiratory 20 18 16 Rate Blood Pressure 154/84 H 146/85 H 135/79 H [Right Brachial artery] O2 Saturation 93 94 94 05/11/23 08:06 Temperature 36.6 C Heart Rate [ 65 Brachial] Respiratory 20 Rate Blood Pressure 155/83 H [Right Brachial artery] O2 Saturation 94 Oxygen O2 Source Room air Oxygen Flow Rate 2 I&O (Last 24 Hrs): Intake and Output Totals x24h 05/09/23 05/10/23 05/11/23 23:59 23:59 23:59 Intake Total 1000 840 940 Output Total 1925 2300 1450 Balance -925 -1460 -510 General: Other (Lethargic) HEENT: Mucous membr. moist/pink Neck: Other (Obese) Neuro: Other (Lethargic, generalized weakness. Speech is off topic and often garbled) Cardiovascular: No murmurs Respiratory: No respiratory distress Abdomen: Soft, Other (Obese) Extremities: Other (2+ edama) - Results Results: Laboratory Results WBC 6.6 x10^3/uL (4.8-10.8) 05/10/23 05:45 RBC 3.83 10^6/uL (4.20-5.40) L 05/10/23 05:45 Hgb 9.7 g/dL (12.0-16.0) L 05/10/23 05:45 Hct 30.5 % (37.0-47.0) L 05/10/23 05:45 MCV 79.6 fL (81.0-99.0) L 05/10/23 05:45 MCH 25.3 pg (27.0-31.0) L 05/10/23 05:45 MCHC 31.8 g/dL (32.0-36.0) L 05/10/23 05:45 RDW 15.9 % (12.0-15.0) H 05/10/23 05:45 Plt Count 309 10^3/uL (130-450) 05/10/23 05:45 MPV 10.6 fL (7.9-10.8) 05/10/23 05:45 Neut # (Auto) 3.9 10^3/uL (1.5-6.6) 05/10/23 05:45 Lymph # (Auto) 1.7 10^3/uL (1.5-3.5) 05/10/23 05:45 [place] # (Auto) 0.7 10^3/uL (0.0-1.0) 05/10/23 05:45 Eos # (Auto) 0.3 10^3/uL (0.0-0.7) 05/10/23 05:45 Baso # (Auto) 0.0 10^3/uL (0.0-0.1) 05/10/23 05:45 Absolute Nucleated RBC 0.00 x10^3/uL 05/10/23 05:45 Total Counted 100 05/06/23 05:30 Band Neuts % (Manual) 1 % (0-10) 05/06/23 05:30 Abnorm Lymph % (Manual) 0 % 05/06/23 05:30 Nucleated RBC % 0.0 /100WBC 05/10/23 05:45 Neutrophils # (Manual) 6.2 10^3/uL (1.5-6.6) 05/06/23 05:30 Lymphocytes # (Manual) 2.0 10^3/uL (1.5-3.5) 05/06/23 05:30 Monocytes # (Manual) 0.8 10^3/uL (0.0-1.0) 05/06/23 05:30 Eosinophils # (Manual) 0.1 10^3/uL (0-0.7) 05/06/23 05:30 Basophils # (Manual) 0.0 10^3/uL (0-0.1) 05/06/23 05:30 Differential Comment MANUAL DIFFERENTIAL 05/06/23 05:30 Platelet Estimate NORMAL (130-450,000) (NORMAL) 05/06/23 05:30 Platelet Morphology NORMAL EMELIA (NORMAL) 05/05/23 07:20 RBC Morph Micro Appear NORMAL APPEARANCE (NORMAL) 05/06/23 05:30 Sodium 139 mmol/L (135-145) 05/10/23 05:45 Potassium 4.0 mmol/L (3.5-4.5) 05/10/23 05:45 Chloride 105 mmol/L (101-111) 05/10/23 05:45 Carbon Dioxide 29 mmol/L (21-32) 05/10/23 05:45 Anion Gap 5.0 (6-13) L 05/10/23 05:45 BUN 9 mg/dL (6-20) 05/10/23 05:45 Creatinine 0.6 mg/dL (0.6-1.3) 05/10/23 05:45 Estimated GFR (MDRD) 96 (>89) 05/10/23 05:45 Glucose 79 mg/dL (74-104) 05/10/23 05:45 Estimat Average Glucose 120 mg/dL (70-100) H 05/05/23 07:20 Hemoglobin A1c % 5.8 % (4.27-6.07) 05/05/23 07:20 Lactic Acid < 0.2 mmol/L (0.5-2.2) L 05/09/23 08:32 Calcium 8.6 mg/dL (8.5-10.3) 05/10/23 05:45 Phosphorus 3.0 mg/dL (2.5-5.0) 05/10/23 05:45 Magnesium 2.1 mg/dL (1.7-2.3) 05/10/23 05:45 Iron 21 ug/dL (50-212) L 05/10/23 05:45 TIBC 223 ug/dL (250-450) L 05/10/23 05:45 % Saturation 9 % (20-50) L 05/10/23 05:45 Transferrin 159 mg/dL (203-362) L 05/10/23 05:45 Total Bilirubin 0.4 mg/dL (0.2-1.0) 04/30/23 18:52 AST 29 IU/L (10-42) 04/30/23 18:52 ALT 14 IU/L (10-60) 04/30/23 18:52 Alkaline Phosphatase 62 IU/L (42-121) 04/30/23 18:52 Total Protein 6.5 g/dL (6.4-8.9) 04/30/23 18:52 Albumin 2.9 g/dL (3.2-5.5) L 04/30/23 18:52 Globulin 3.6 g/dL (2.1-4.2) 04/30/23 18:52 Albumin/Globulin Ratio 0.8 (1.0-2.2) L 04/30/23 18:52 Lipase 18 U/L (11-82) 04/30/23 18:52 Urine Color YELLOW 04/30/23 19:34 Urine Clarity CLOUDY (CLEAR) 04/30/23 19:34 Urine pH >=9.0 PH (5.0-7.5) H 04/30/23 19:34 Ur Specific [place] <=1.005 (1.002-1.030) 04/30/23 19:34 Urine Protein 100 mg/dL (NEGATIVE) H 04/30/23 19:34 Urine Glucose (UA) NEGATIVE mg/dL (NEGATIVE) 04/30/23 19:34 Urine Ketones NEGATIVE mg/dL (NEGATIVE) 04/30/23 19:34 Urine Occult Blood NEGATIVE (NEGATIVE) 04/30/23 19:34 Urine Nitrite NEGATIVE (NEGATIVE) 04/30/23 19:34 Urine Bilirubin NEGATIVE (NEGATIVE) 04/30/23 19:34 Urine Urobilinogen 0.2 (NORMAL) E.U./dL (NORMAL) 04/30/23 19:34 Ur Leukocyte Esterase MODERATE (NEGATIVE) H 04/30/23 19:34 Urine RBC 0-5 /HPF (0-5) 04/30/23 19:34 Urine WBC 11-25 /HPF (0-5) H 04/30/23 19:34 Ur Squamous Epith Cells FEW Squamous (<= Few) 04/30/23 19:34 Amorphous Sediment Few /LPF 04/30/23 19:34 Urine Bacteria Moderate /HPF (None Seen) H 04/30/23 19:34 Ur Microscopic Review INDICATED 04/30/23 19:34 Urine Culture Comments INDICATED 04/30/23 19:34 Nasal Adenovirus (PCR) NOT DETECTED 04/30/23 18:14 Nasal B. parapertussis DNA (PCR) NOT DETECTED 04/30/23 18:14 Nasal Coronavir 229E PCR NOT DETECTED 04/30/23 18:14 Nasal Coronavir HKU1 PCR NOT DETECTED 04/30/23 18:14 Nasal Coronavir NL63 PCR NOT DETECTED 04/30/23 18:14 Nasal Coronavir OC43 PCR NOT DETECTED 04/30/23 18:14 Nasal Enterovir/Rhinovir PCR NOT DETECTED 04/30/23 18:14 Nasal Influenza B PCR NOT DETECTED 04/30/23 18:14 Nasal Influenza A PCR NOT DETECTED 04/30/23 18:14 Nasal Parainfluen 1 PCR NOT DETECTED 04/30/23 18:14 Nasal Parainfluen 2 PCR NOT DETECTED 04/30/23 18:14 Nasal Parainfluen 3 PCR NOT DETECTED 04/30/23 18:14 Nasal Parainfluen 4 PCR NOT DETECTED 04/30/23 18:14 Nasal RSV (PCR) NOT DETECTED 04/30/23 18:14 Nasal B.pertussis DNA PCR NOT DETECTED 04/30/23 18:14 Nasal C.pneumoniae (PCR) NOT DETECTED 04/30/23 18:14 Nathan Human Metapneumo PCR NOT DETECTED 04/30/23 18:14 Nasal M.pneumoniae (PCR) NOT DETECTED 04/30/23 18:14 Nasal SARS-CoV-2 (PCR) NOT DETECTED 04/30/23 18:14 - Procedures Procedures: Procedures CONTINUOUS INVASIVE MECHANICAL VENTILATION <96 CONSEC HRS (09/29/13) INSERT ENDOTRACHEAL TUBE (09/29/13) INSERT GASTRIC TUBE NEC (09/29/13) INSERTION OF INFUSION DEV INTO SUP VENA CAVA, PERC APPROACH (02/14/17) REPLACE CYSTOSTOMY TUBE (06/12/14) RETROGRADE PYELOGRAM (06/12/14) TU BLADDER CLEARANCE (06/12/14) VENOUS CATHETERIZATION NEC (09/29/13) Sepsis Event Note (H) - Evaluation Current Stage of Sepsis: Severe sepsis (patient comfort measures) Possible source of Sepsis: positive: Genitourinary - Sepsis Criteria Sepsis Criteria: Suspected or Documented, WBC count greater than 12,000 or less than 4000, SBP drop more than 40mHg, Metabolic: lactate > 2 mmol/L
[2023-05-11] MEDS: AMITRIPTYLINE 25 MG TABLET PO SCH (20:29)
[2023-05-12] MEDS: SODIUM CHLORIDE FLUSH 0.9% 10 ML SYRINGE IVP SCH ×2 (00:17→10:08)
[2023-05-12] MEDS: MEROPENEM 1 GM in SODIUM CHLORIDE 0.9% MINIBAG 100 ML IV SCH ×2 (00:17→10:11)
[2023-05-12] MEDS: POTASSIUM CHLORIDE 10 MEQ CAPSULE PO SCH (10:03)
[2023-05-12] MEDS: SACCHAROMYCES BOULARDII 250 MG CAPSULE PO SCH (10:03)
[2023-05-12] MEDS: MAGNESIUM OXIDE 400 MG TABLET PO SCH (10:04)
[2023-05-12] MEDS: ASPIRIN EC 81 MG TABLET PO SCH (10:04)
[2023-05-12] MEDS: DULoxetine 30 MG CAPSULE PO SCH (10:04)
[2023-05-12] MEDS: PREGABALIN 100 MG CAPSULE PO SCH (10:05)
[2023-05-12] MEDS: MULTIVITAMIN W/MINERALS TABLET PO SCH (10:05)
[2023-05-12] MEDS: amLODIPine 5 MG TABLET PO SCH (10:05)
[2023-05-12] MEDS: BUPRENORPHINE 0.3 MG/ML VIAL IM SCH (10:07)
[2023-05-12] MEDS: risperiDONE 1 MG TABLET PO SCH (10:07)
--- NOTE | 2023-05-12 10:35 | XRAY Report ---
PROCEDURE: Chest for Line Placement INDICATIONS: PICC line placement TECHNIQUE: One view of the chest was acquired. COMPARISON: 04/30/2023. FINDINGS: Surgical changes and devices: A left arm PICC line rejects to the SVC right atrial junction. Lungs and pleura: No pleural effusions or pneumothorax. Patchy bibasilar atelectasis. Mediastinum: Mediastinal contours appear normal. Heart size is normal. Bones and chest wall: No suspicious bony lesions. Overlying soft tissues appear unremarkable. IMPRESSION: Left arm PICC line tip projects in the SVC right age of junction. Patchy bibasilar atelectasis. Reviewed by: Carlos Muniz MD on 05/12/2023 10:33 AM PST Approved by: Carlos Muniz MD on 05/12/2023 10:33 AM PST Station ID: [id number]
--- NOTE | 2023-05-12 10:55 | ANESTHESIA PROCEDURE NOTE ---
Anesth Central Line Template - Central Line Central Line Preparation: Consent Obtained Central line location: Right Basilic Central line type: PICC Single Lumen Central line catheter tip site resides: Superior vena cava (SVC) Central line aftercare: Secured, Placement confirmed, No pneumothorax, No complications, Bundle checklist complete, Pt tolerated well
--- NOTE | 2023-05-12 10:57 | CONSULTATION NOTE ---
Consultation Report: RUE PICC placed with U/S guidance. 4Fr single lumen. Sterile technique maintained. PICC trimmed to 43cm, 0 exposed. Placement confirmed with CXR. Pt tolerated well. NAC
--- NOTE | 2023-05-12 12:42 | DISCHARGE SUMMARY ---
"Discharge Summary Admit Date: 05/01/23 Discharge Date: 05/12/23 Discharging Provider: Dary Ha MD Primary Care Provider: [facility] @ [facility] Code Status: Do Not Attempt Resuscitation Condition at Discharge: Fair Discharge Disposition: SNF DC/Xfer - DIAGNOSES Discharge Diagnoses with Status of Each Condition: 1. Sepsis 2. Metabolic encephalopathy secondary to infection and medication 3. Bacteremia due to Proteus 4. UTI due to chronic indwelling urinary catheter, 5. Type 2 diabetes mellitus, controlled, without long-term use of insulin 6. History of [id number] amputation of left lower extremity 7. Schizophrenia 8. Hypokalemia 9. Acute kidney injury 10. Comfort measures status - HPI History of Present Illness: Ms Mederos is a 78 yo F with hx L BKA, chronic indwelling suprapubic catheter, HTN, DM II. Resides at [facility]. Per ER provider patient has POLST form that indicates DNR/comfort focused care only. Presents to ER found unresponsive, O2 sats in the 70s improved, now on 2 L NC. Hypotension BP 60s/40s. Unable to obtain further history. ER provider has been attempting to contact family/POA for several hours, no answer, he has left voicemail with patient's daughter and awaiting call back. In the meantime per POLST form will provide comfort/supportive care with IV fluids and IV abx OK. Patient comfort care last admission 02/2020, also noted comfort measures on ER visit 11/2021 for chest pain. - Past Medical History Cardiovascular: reports: Hypertension, High cholesterol Respiratory: reports: Asthma, Pneumonia Neuro: reports: Headaches, Peripheral neuropathy Endocrine/Autoimmune: reports: Type 2 diabetes GI: reports: GERD, C.difficile, Chronic constipation : reports: Chronic bladder infection, Kidney stones, Other HEENT: reports: Other Psych: reports: Depression, Anxiety, Schizophrenia Musculoskeletal: reports: Osteoarthritis, Chronic back pain, Other Derm: reports: Other MRSA Hx?: Yes - Past Surgical History General: reports: Appendectomy, Colonoscopy, EGD Ortho: reports: Carpal Tunnel surgery, Spine surgery, Amputation, Other /TAIL WORKER: reports: Hysterectomy, Other Cardiovascular: reports: Other - CONSULTS | PROCEDURES Procedures: Chest x-ray had low lung volumes with bibasilar streaky opacities favoring atelectasis versus aspiration. A repeat chest x-ray was done once a PICC line was placed and she has a left arm PICC line tip projecting into the SVC and right atrial junction. Continues to have patchy bibasilar atelectasis. Head CT was done twice. April 30 and May 09. No acute intracranial process. Mild to moderate atrophy and chronic microvascular ischemic changes. Chest CT had dependent changes of atelectasis with minimal effusions bilaterally. This represented atelectasis. Pneumonia could not be excluded. Abdomen/pelvis CT with bilateral renal calculi, largest on the right. Right hydroureter with dependent stones identified proximally as well as distal calcification. There is prominence of the right renal pelvis and suspected hydronephrosis although poorly delineated secondary to artifact as well as obscuration by large central stone. Distended gallbladder possibly hydrops in appearance. Urine and blood cultures on April 30 were positive for Providencia stuartii. Blood culture was positive for Proteus mirabilis. Blood culture May 02 was positive for Providencia stuartii with Enterobacter On PCR Blood cultures May 04 were negative - HOSPITAL COURSE Hospital Course: She met sepsis criteria and was found to have a UTI in the setting of a chronic indwelling suprapubic catheter. She has a history of stones. She was felt to have acute metabolic encephalopathy related to her infection but superimposed on a chronically sedated status from her home meds. She was able to follow simple commands and moving all extremities. Plan of Treatment: Sepsis criteria resolved with treatment. Treatment included IV antibiotics and IV fluids. She was found to have UTI with Proteus and Providencia. Blood cultures were also positive for this. She was started on Levaquin and metronidazole. However repeat blood cultures were still positive on the chosen antibiotics and her antibiotics were changed to meropenem May 04. Follow- up blood cultures after May 04 were negative. She is to complete therapy with 14 days of meropenem starting on May 05. As such a PICC line was placed May 11 and she will need antibiotics until May 18. Unfortunately, this patient has a chronic indwelling Reyes catheter and is expected that she will have further UTIs down the road. CT scan of the abdomen does show right hydronephrosis. She does have stones causing partial blockages. However family stated that the patient is not a candidate for surgical procedures according to her advance care wishes. I reiterated that with a conversation with the daughter. No stents, no urology consult. Because of her encephalopathy and excessive sleepiness, she was not able to take p.o. meds safely. Stat CT of the head was ordered and negative. Because she was so somnolent her Lyrica, Elavil and buprenorphine were held. Although as these are being resumed at discharge, we would strongly recommend reducing doses to be left at the discretion of the physician taking care of her at the retirement. She does not eat well unless she is fed by AUTOMOTIVE SERVICE ADVISOR. So we would recommend that she be hand fed at the retirement. She is bedbound and as such no PT. Her psychiatric meds were resumed. Hypokalemia resolved, acute kidney injury resolved. Now that she has a PICC line, she can be transferred back to her [facility] facility Before discharge, I was able to speak to her daughter, Kira Lam. The patient does not have a formal DPOA. When she went into the retirement, she was still able to make her own decisions and has been very reluctant to give DPOA to anyone. But she has told all of her daughters that she only wants to have IV fluids, IV antibiotics and to be DNR if she stops breathing or her heart stops. She refuses to have surgical procedures. She has had previous kidney stones with previous stents and urological evaluation. She has refused to get any further stent or urological evaluation. This is all in the context of my explaining to the daughter that the patient may return with another UTI and obstruction of the kidney because of stones. Daughter reiterates that if she does return, it is only IV fluids and IV antibiotics that should be used in treatment. The daughter states that she is going to be meeting with the retirement tomorrow on May 13. They plan on discussing mom's CODE STATUS since her POLST form has . Care Goals: Focus on comfort. To complete antibiotic therapy. Continue DNR status. Assessment: The patient is described as lethargic, moist mucous membranes. Generalized weakness. Speech is garbled and off topic. Unable to follow commands. But no focal deficits. Temperature is 37 degrees. Heart rate is 68. Blood pressure 113/83. Respirations 18. 91 to 94% on room air. She complains of back pain at a 7 out of a 10. Lungs are clear with diminished breath sounds at the bases. No respiratory distress. A regular rate and rhythm. No murmurs. A benign abdomen. 2+ leg edema. Last bowel movement May 08. Suprapubic catheter i n place. Greater than 30 minutes was spent coordinating discharge This document was made in part using voice recognition software. While efforts are made to proofread this document, sound alike and grammatical errors may occur. - ALLERGIES Allergies/Adverse Reactions: Allergies Allergy/AdvReac Type Severity Reaction Status Date / Time erythromycin base Allergy Severe Anaphylaxis Verified 04/30/23 17:58 [Erythromycin Base] Penicillins Allergy Severe Anaphylaxis Verified 04/30/23 17:58 Sulfa (Sulfonamide Allergy Severe Redness/High Verified 04/30/23 17:58 Antibiotics) fever lisinopril Allergy Unknown Unknown Verified 04/30/23 17:58 ceftriaxone Allergy Rash Verified 04/30/23 17:58 quinidine Allergy Rash Verified 04/30/23 17:58 - MEDICATIONS Home Medications: Ambulatory Orders Medication Instructions Recorded Confirmed Pregabalin [Lyrica] 300 mg PO BID 10/06/17 05/02/23 risperiDONE [Risperdal] 2 mg PO BID 05/05/18 05/02/23 bisacodyL [Dulcolax] 5 mg PO DAILY PRN 07/14/18 05/02/23 Aspirin [Aspirin EC] 81 mg PO DAILY 12/03/18 05/02/23 Duloxetine HCl [Cymbalta] 30 mg PO DAILY 12/03/18 05/02/23 Furosemide 20 mg PO DAILY 12/03/18 05/02/23 Senna [Senokot] 8.6 mg PO BID PRN 12/03/18 05/02/23 Calcium Carbonate [Tums (Calcium 500 mg PO Q4HR PRN 12/07/21 05/02/23 Carbonate 500mg)] Acetaminophen [Tylenol] 650 mg PO Q6HR PRN tab 05/12/23 Amitriptyline [Elavil] 25 mg PO HS #0 05/12/23 05/02/23 Buprenorphine HCl [Belbuca] 300 mcg BC BID #0 05/12/23 05/02/23 Ferrous Gluconate 240 mg PO DAILY #0 05/12/23 05/02/23 Lactobacillus Acidophilus 1 each PO DAILY #0 05/12/23 05/02/23 [Acidophilus Lactobacilli] Lidocaine Patch 5% [Lidoderm Patch] 1 each TOP DAILY #0 05/12/23 05/02/23 Magnesium Oxide [Mag Ox] 400 mg PO DAILYWM tab 05/12/23 Melatonin 6 mg PO QPM #0 05/12/23 05/02/23 Meropenem [Merrem] 1 gm IV Q8H ml 05/12/23 Multivitamin W/Minerals [Theragran 1 tab PO DAILYWM tab 05/12/23 M] Potassium Chloride [Micro-K] 20 meq PO DAILYWM cap 05/12/23 Sodium Chloride 0.9% Minibag 100 ml IV Q8H each 05/12/23 [Normal Saline 0.9% Minibag] amLODIPine [Norvasc] 5 mg PO DAILY #0 05/12/23 05/02/23 hydrOXYzine HCL [Hydroxyzine HCl] 25 mg PO HS #0 05/12/23 05/02/23 tiZANidine [Zanaflex] 4 mg PO TID #0 05/12/23 05/02/23 - LABS Result Diagrams: 05/10/23 05:45 05/10/23 05:45 - SEPSIS Current Stage of Sepsis: Severe sepsis (patient comfort measures) Possible source of Sepsis: Genitourinary Sepsis Criteria: Suspected or Documented, WBC count greater than 12,000 or le ss than 4000, SBP drop more than 40mHg, Metabolic: lactate > 2 mmol/L"
--- NOTE | 2023-05-12 12:55 | Discharge Plan ---
"Discharge Plan for SNF / LETTY - Discharge Plan And Transition Orders Problem Reviewed?: Yes Disposition: 03 SNF DC/Xfer Condition: Fair Allergies and Adverse Reactions: Allergies Allergy/AdvReac Type Severity Reaction Status Date / Time erythromycin base Allergy Severe Anaphylaxis Verified 04/30/23 17:58 [Erythromycin Base] Penicillins Allergy Severe Anaphylaxis Verified 04/30/23 17:58 Sulfa (Sulfonamide Allergy Severe Redness/High Verified 04/30/23 17:58 Antibiotics) fever lisinopril Allergy Unknown Unknown Verified 04/30/23 17:58 ceftriaxone Allergy Rash Verified 04/30/23 17:58 quinidine Allergy Rash Verified 04/30/23 17:58 Health Concerns: Patient lives in a custodial facility and she was brought to the ER because she was unresponsive with hypoxia. O2 sats were in the 70s. Hypotensive to the 60s over 40s. No other history was able to be obtained. She is a permanent resident of a custodial facility and is bedbound. ER provider attempted to contact family and POA for several hours and had no answer. POLST form indicates that she is to have comfort measures and it is okay to give IV fluids and IV antibiotics. Her last admission was in February 2020 with the same care guidelines. She met sepsis criteria and was found to have a UTI in the setting of a chronic indwelling suprapubic catheter. She has a history of stones. She was felt to have acute metabolic encephalopathy related to her infection. She was able to follow simple commands and moving all extremities. Plan of Treatment: Sepsis criteria resolved with treatment. Treatment included IV antibiotics and IV fluids. She was found to have UTI with Proteus and Providencia chart. She was started on Levaquin and metronidazole. However repeat blood cultures were still positive on the chosen antibiotics and her antibiotics were changed to meropenem May 04. Follow-up blood cultures after May 04 were negative. She is to complete therapy with 14 days of meropenem starting on May 05. As such a PICC line was placed May 11 and she will need antibiotics until May 18. Unfortunately, this patient has a chronic indwelling Reyes catheter and is expected that she will have further UTIs down the road. She met sepsis criteria and was found to have a UTI in the setting of a chronic indwelling suprapubic catheter. She has a history of stones. She was felt to have acute metabolic encephalopathy related to her infection. She was able to follow simple commands and moving all extremities. Plan of Treatment: Sepsis criteria resolved with treatment. Treatment included IV antibiotics and IV fluids. She was found to have UTI with Proteus and Providencia. She was started on Levaquin and metronidazole. However repeat blood cultures were still positive on the chosen antibiotics and her antibiotics were changed to meropenem May 04. Follow-up blood cultures after May 04 were negative. She is to complete therapy with 14 days of meropenem starting on May 05. As such a PICC line was placed May 11 and she will need antibiotics until May 18. Unfortunately, this patient has a chronic indwelling Reyes catheter and is expected that she will have further UTIs down the road. She does have bilateral renal stones. Right hydroureter. Prominence of renal pelvis and suspected hydronephrosis. Distended gallbladder possibly hydrops. Because of her encephalopathy and excessive sleepiness, she was not able to take p.o. meds safely. Stat CT of the head was ordered and negative. Because she was so somnolent her Lyrica, Elavil and buprenorphine were held. Although as these are being resumed at discharge, we would strongly recommend reducing doses to be left at the discretion of the physician taking care of her at the halfway. She does not eat well unless she is fed by MUSIC STORE MANAGER. So we would recommend that she be hand fed at the halfway. She is bedbound and as such no PT. Her psychiatric meds were resumed. Hypokalemia resolved, acute kidney injury resolved. Now that she has a PICC line, she can be transferred back to her custodial facility Care Goals: Focus on comfort. To complete antibiotic therapy. Continue DNR status. Assessment: The patient is described as lethargic, moist mucous membranes. Generalized weakness. Speech is garbled and off topic. Unable to follow commands. But no focal deficits. Lungs are clear with diminished breath sounds at the bases. No respiratory distress. A regular rate and rhythm. No murmurs. A benign abdomen. 2+ leg edema. Last bowel movement May 08. Suprapubic catheter in place. - SNF / GROUP HOME Transition Orders Admit to (Facility): [facility] Under the care of (Name): [facility] physician Discharge Diagnosis: 1. Sepsis 2. Metabolic encephalopathy secondary to infection and medication 3. Bacteremia due to Proteus 4. UTI due to chronic indwelling urinary catheter, 5. Type 2 diabetes mellitus, controlled, without long-term use of insulin 6. History of [id number] amputation of left lower extremity 7. Schizophrenia 8. Hypokalemia 9. Acute kidney injury 10. Comfort measures status Medicare Certification Statement: I certify that Post Hospital custodial care is medically necessary on a continuing basis for Bacteremia for which she/he is receiving care during hospitalization. Notify PCP of admission and forward orders to primary provider for signature. Other Notification Orders: Call PCP immediately if patient develops dyspnea, chest pain/tightness or edema. House Bowel Program: Yes Additional Bowel Program Orders: If no BM after 2 days, nurse may give M.O.M. 30ml PO PRN and/or ducolax Supp 1 FL and/or DENZEL 250mg P.O., and/or senna 1-2 tabs PO. On day 3 nurse may give repeat above order until residents constipation is resolved. Annual Influenza Vaccine (between Jan 09 and August 08): Yes Two-step PPD per [facility] [phone] or approved exception documents: Yes Medication Orders: PLEASE REFER TO THE DISCHARGE MEDICATION LIST. Insulin Orders?: No - Diet Texture: Mech soft (mince and moist) May have monthly special meal: Yes - Therapies | Activity Rehabilitation Potential: Maintain present ADL Functional (permanent placement in SNF due to bedbound status) Activity: Activity as Tolerated Assistance Devices: Wheelchair"
[2023-05-12 14:27] VITALS: BP 113/83; O2SAT 91
== END 2023-05-12 14:50 | DRG 698 ==
LOC: EDUNIT# → ED 17:37 → MS2 05-01 00:36
PROVIDERS: ADMIT Student in an Organized Health Care Education/Training Program; ATTEND Specialist
PROC: 02HV33Z Insertion of Infusion Device into Superior Vena Cava, Percutaneous Approach (ICD-10-PCS; principal; 2023-05-12)
DX: A41.9 Sepsis, unspecified organism (principal); T83.511A Infection and inflammatory reaction due to indwelling urethral catheter, initial encounter; A41.59 Other Gram-negative sepsis; R65.20 Severe sepsis without septic shock; G93.41 Metabolic encephalopathy; Z89.512 Acquired absence of left leg below knee; E11.9 Type 2 diabetes mellitus without complications; N17.9 Acute kidney failure, unspecified; N13.2 Hydronephrosis with renal and ureteral calculous obstruction; N39.0 Urinary tract infection, site not specified; Z79.4 Long term (current) use of insulin; Z89.612 Acquired absence of left leg above knee; F20.9 Schizophrenia, unspecified; E87.6 Hypokalemia; Z51.5 Encounter for palliative care; I10 Essential (primary) hypertension; Z66 Do not resuscitate; I95.9 Hypotension, unspecified; E78.00 Pure hypercholesterolemia, unspecified; K21.9 Gastro-esophageal reflux disease without esophagitis; F32.A Depression, unspecified; F41.9 Anxiety disorder, unspecified; R53.1 Weakness; Z96.0 Presence of urogenital implants; E11.42 Type 2 diabetes mellitus with diabetic polyneuropathy; E66.9 Obesity, unspecified; Z68.32 Body mass index [BMI] 32.0-32.9, adult; R41.82 Altered mental status, unspecified; T50.995A Adverse effect of other drugs, medicaments and biological substances, initial encounter; Y92.230 Patient room in hospital as the place of occurrence of the external cause; R09.02 Hypoxemia; Z74.01 Bed confinement status
CPT/HCPCS: 36415; 70450; 71045; 71250; 74176; 80048; 80053; 81001; 83036; 83540; 83605; 83690; 83735; 84100; 84466; 85025; 87040; 87076; 87077; 87086; 87150; 87181; 87633; 96360; 96361; 99284; 99285; A9270; J0131; J0592; J2185; 81003

== ENCOUNTER 2023-05-12 14:33 | Outpatient (CLI) | payer MEDICARE, MEDICAID | END 2023-05-12 23:59 | LOC: EMS 14:33 | PROVIDERS: ATTEND Specialist | DX: Z74.01 Bed confinement status (principal) | CPT/HCPCS: A0425; A0428 ==

== ENCOUNTER 2023-05-20 08:41 | Outpatient (CLI) | payer MEDICARE, MEDICAID ==
[2023-05-20 09:11] LABS: CALCIUM 9.1 mg/dL (8.5-10.3); CREATININE 0.7 mg/dL (0.6-1.3); POTASSIUM 4.2 mmol/L (3.5-4.5)
== END 2023-05-20 08:42 | disposition home or self-care (01) ==
LOC: LAB.R 08:41
PROVIDERS: ATTEND Registered Nurse
DX: E87.8 Other disorders of electrolyte and fluid balance, not elsewhere classified (principal)
CPT/HCPCS: 80048

== ENCOUNTER 2023-06-02 15:07 | Outpatient (CLI) | payer MEDICARE, MEDICAID ==
[2023-06-02 15:15] LABS: BILIRUBIN,URINE NEGATIVE (NEGATIVE); GLUCOSE, URINE (UA) NEGATIVE (NEGATIVE); KETONES,URINE (UA) 15 mg/dL (NEGATIVE); LEUKOCYTE ESTERASE, URINE MODERATE (NEGATIVE); NITRITE,URINE POSITIVE (NEGATIVE); OCCULT BLOOD,URINE MODERATE (NEGATIVE); PROTEIN,URINE 30 mg/dL (NEGATIVE); UROBILINOGEN,URINE 0.2 (NORMAL) E.U./dL (NORMAL)
[2023-06-02 15:56] LABS: CLARITY,URINE HAZY (CLEAR)
[2023-06-02 16:13] LABS: BACTERIA,URINE Moderate /HPF (None Seen); SQUAMOUS EPITHELIAL CELL,UR FEW Squamous (<= Few)
== END 2023-06-02 15:08 | disposition home or self-care (01) ==
LOC: LAB.R 15:07
PROVIDERS: ATTEND Hospitalist
DX: R33.9 Retention of urine, unspecified (principal)
CPT/HCPCS: 81001; 81003; 87077; 87086; 87181

== ENCOUNTER 2023-06-10 08:00 | Outpatient (CLI) | payer MEDICARE, MEDICAID ==
[2023-06-10 18:04] LABS: BASOPHILS % (AUTO) 0.5 %; EOSINOPHILS # (AUTO) 0.4 10^3/uL (0.0-0.7); EOSINOPHILS % (AUTO) 4.4 %; HCT - HEMATOCRIT 36.8 % (37.0-47.0); LYMPHOCYTES # (AUTO) 2.1 10^3/uL (1.5-3.5); LYMPHOCYTES % (AUTO) 25.3 %; MEAN CORPUSCULAR HEMOGLOBIN 24.7 pg (27.0-31.0); MEAN CORPUSCULAR HGB CONC 29.9 g/dL (32.0-36.0); MEAN CORPUSCULAR VOLUME 82.5 fL (81.0-99.0); MONOCYTES # (AUTO) 0.6 10^3/uL (0.0-1.0); MONOCYTES % (AUTO) 7.1 %; NEUTROPHILS # (AUTO) 5.1 10^3/uL (1.5-6.6); NEUTROPHILS % (AUTO) 62.5 %; PLT - PLATELET COUNT 326 10^3/uL (130-450); RED BLOOD COUNT 4.46 10^6/uL (4.20-5.40); RED CELL DISTRIBUTION WIDTH 16.3 % (12.0-15.0); WHITE BLOOD COUNT 8.2 x10^3/uL (4.8-10.8)
[2023-06-10 18:23] LABS: CALCIUM 9.8 mg/dL (8.5-10.3); CREATININE 0.9 mg/dL (0.6-1.3); POTASSIUM 3.8 mmol/L (3.5-4.5)
[2023-06-10 20:40] LABS: ESTIMATED AVERAGE GLUCOSE 123 mg/dL (70-100); HEMOGLOBIN A1c% 5.9 % (4.27-6.07)
== END 2023-06-10 23:59 | disposition home or self-care (01) ==
LOC: LAB.R 08:00
PROVIDERS: ATTEND Registered Nurse
DX: I25.9 Chronic ischemic heart disease, unspecified (principal); E11.29 Type 2 diabetes mellitus with other diabetic kidney complication; D50.9 Iron deficiency anemia, unspecified
CPT/HCPCS: 80048; 83036; 83540; 85025